=== PATIENT | male | born 1965 | race Caucasian/White ===

== ENCOUNTER 2021-11-03 14:22 | Inpatient (IN) ==
--- NOTE | 2021-11-03 18:39 | Emergency Department Note ---
Impression & Plan Acute hypoxemic respiratory failure due to COVID-19, Nausea vomiting and diarrhea, 2019 novel coronavirus-infected pneumonia (NCIP) ED Provider Note NAME: CHAS COLLINS AGE: 56 SEX: M : 1965 ARRIVES VIA: Walk-In INFORMANT: Patient, ED PROVIDER(S): Raleigh Slaughter MD Chief Complaint: Weakness, fatigue, shortness of breath, cough HPI: Patient does present with the above complaints and states he has had these for approximate 11 days. They have gotten progressively worse and the patient is had decreased p.o. intake. The patient does not complain of any nausea or vomiting. The patient has had a nonproductive cough. Patient is a non-smoker. The patient was reportedly hypoxic in triage per patient was placed on supplemental O2 the patient has no history of MIRIAM. The patient denies any lower extremity swelling. Patient has no abdominal pain or chest pain. Patient does have a known history of factor V Leiden and DVT for which patient does take Coumadin. Patient cannot remember the last time he took it. He did not take it today. Patient denies any orthopnea but does have dyspnea on exertion. No prior history of PE. Patient did have a positive test on 1129. 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 ROS: See HPI for pertinent positives and negatives. A total of 10 systems were reviewed and otherwise negative. Past medical history: See below Surgical history: See below Social history: See below Physical Exam: GENERAL: Fatigued in appearance,NAD, wearing a mask, non-toxic. EYE EXAM: Normal conjunctiva. PERRL, no anisocoria and EOM's grossly intact w/o pain. OROPHARYNX: Moist mucus membranes. Grossly normal dentition. NECK: Supple, no nuchal rigidity, no adenopathy, non-tender. No signs of meningismus. FROM of the neck with good chin to chest and neck extension. No stridor. LUNGS: Bibasilar crackles noted. Normal chest wall mechanics. HEART: NSR, no MRG. ABDOMEN: Abdomen soft, non-tender, normo-active bowel sounds, no masses, no rebound or guarding. BACK: No CVA TTP. SKIN: No rashes and no bruising. UPPER EXTREMITIES: Upper extremities are grossly normal. LOWER EXTREMITIES: Grossly normal, no edema. Negative Homans' sign bilaterally. NEURO EXAM: A&O x3, cranial nerves II-XII grossly intact, normal speech, moves all 4 extremities on command w/o issue. Differential diagnoses: Reactive airway disease, pneumonia, pneumothorax, COPD, CHF, infections, cardiac ischemia, pulmonary embolism, musculoskeletal, gastrointestinal, as well as other pathologies. Course: Patient was seen and evaluated the bedside. Full history physical exam was performed. Imaging Studies: See Below Cardiac monitoring: An order was placed for continuous cardiac monitoring. The monitor shows a rate of 92 with sinus rhythm. MDM: Patient was seen due to concern for COVID-19 illness with hypoxia. Patient did have blood work completed along with a chest x-ray. Patient is normal white count H&H and platelet count. INR is therapeutic at 2.6. Patient does have hyponatremia 127 potassium 3.1. Dressings were for replacement patient did receive IV fluids. Patient also received dexamethasone given his hypoxemia secondary to COVID-19. Chest x-ray shows progress multifocal viral pneumonia. I did speak the on-call hospitalist and the patient was admitted to the medicine service by Dr. Armenta. Critical Care: I have personally spent 42 minutes of critical care time in direct management of this patient. This includes bedside care, interpretation of diagnostic studies, and testing, discussion with consultants, patient, and family members, and other require inpatient management activities. This 42 minutes is in excess of all separately billable procedures. Past Med/Surg History Medical History Dyslipidemia Factor V Leiden carrier Warfarin History of DVT (deep vein thrombosis) Surgical History No history of previous surgery Social History Smoking Status: Never smoker marital status: Current Living Situation: Family current occupational status: employed Feels Safe at Home: Yes Allergies Allergies Allergy/AdvReac Type Severity Reaction Status Date / Time Sulfa (Sulfonamide Allergy Intermediate "tongue Verified 11/03/21 19:25 Antibiotics) turned black" Home Meds Home Medications Medication Instructions Recorded Confirmed atorvastatin 20 mg tablet 20 mg PO DAILY 11/02/21 11/03/21 warfarin 1 mg tablet 2 mg PO 5XWK 11/02/21 11/03/21 warfarin 10 mg tablet 10 mg PO DAILY 11/02/21 11/03/21 Previous Rx's Medication Instructions Recorded ondansetron 4 mg disintegrating 4 mg PO Q6H PRN #20 tab 11/02/21 tablet Results & Data (ED) Vital Signs Vital Signs - 24 hr 11/03/21 14:27 11/03/21 18:56 11/03/21 19:00 Temperature 36.7 C Temperature Source Temporal Artery Scan Pulse Rate 106 H 102 H 104 H Pulse Rate [Left Finger] 88 Pulse Rate from SpO2 Sensor 102 H 104 H Pulse Rhythm Regular Pulse Rhythm [Left Finger] Regular Respiratory Rate 20 23 25 H Respiratory Effort / Characteristics Non-Labored Spontaneous Non-Labored Respiratory Depth Normal Normal Respiratory Pattern Regular Blood Pressure 123/69 144/77 H Blood Pressure [Left Arm] 144/77 H Blood Pressure Mean 87 99 Blood Pressure Mean [Left Arm] 99 Blood Pressure Position [Left Arm] Sitting Pulse Oximetry 90 85 L 97 Oxygen Delivery Method Room Air Room Air Sepsis Recent Fever Within 48 Hours No Sepsis New/Unexplained Change in Mental Status No Sepsis Action Taken by Nursing No Action Required Oxygen Flow Rate - Titration 4 Pulse Oximetry Post Tiitration 95 11/03/21 19:10 11/03/21 19:20 11/03/21 19:34 Temperature Temperature Source Pulse Rate 106 H 99 H 106 H Pulse Rate [Left Finger] Pulse Rate from SpO2 Sensor 98 H Pulse Rhythm Pulse Rhythm [Left Finger] Respiratory Rate 26 H 24 21 Respiratory Effort / Characteristics Respiratory Depth Respiratory Pattern Blood Pressure Blood Pressure [Left Arm] Blood Pressure Mean Blood Pressure Mean [Left Arm] Blood Pressure Position [Left Arm] Pulse Oximetry 99 Oxygen Delivery Method Sepsis Recent Fever Within 48 Hours Sepsis New/Unexplained Change in Mental Status Sepsis Action Taken by Nursing Oxygen Flow Rate - Titration Pulse Oximetry Post Tiitration 11/03/21 19:40 11/03/21 19:50 11/03/21 20:00 Temperature Temperature Source Pulse Rate 98 H 100 H 105 H Pulse Rate [Left Finger] Pulse Rate from SpO2 Sensor 100 H 106 H Pulse Rhythm Pulse Rhythm [Left Finger] Respiratory Rate 24 25 H 24 Respiratory Effort / Characteristics Respiratory Depth Respiratory Pattern Blood Pressure Blood Pressure [Left Arm] Blood Pressure Mean Blood Pressure Mean [Left Arm] Blood Pressure Position [Left Arm] Pulse Oximetry 95 96 Oxygen Delivery Method Sepsis Recent Fever Within 48 Hours Sepsis New/Unexplained Change in Mental Status Sepsis Action Taken by Nursing Oxygen Flow Rate - Titration Pulse Oximetry Post Tiitration 11/03/21 20:10 11/03/21 20:20 11/03/21 20:30 Temperature Temperature Source Pulse Rate 94 H 102 H 90 Pulse Rate [Left Finger] Pulse Rate from SpO2 Sensor 96 H 103 H 90 Pulse Rhythm Pulse Rhythm [Left Finger] Respiratory Rate 31 H 25 H 27 H Respiratory Effort / Characteristics Respiratory Depth Respiratory Pattern Blood Pressure 140/70 Blood Pressure [Left Arm] Blood Pressure Mean 93 Blood Pressure Mean [Left Arm] Blood Pressure Position [Left Arm] Pulse Oximetry 96 95 98 Oxygen Delivery Method Sepsis Recent Fever Within 48 Hours Sepsis New/Unexplained Change in Mental Status Sepsis Action Taken by Nursing Oxygen Flow Rate - Titration Pulse Oximetry Post Tiitration Home Medications Current Medication List: was personally reviewed by me Laboratory Data Attestation: I reviewed the patient's lab results. Result diagrams: 11/03/21 19:06 11/03/21 19:06 Lab Results 11/03/21 11/03/21 11/03/21 Range/Units 19:06 19:06 19:06 WBC 7.66 (4.8-10.8) K/uL RBC 4.85 (4.7-6.1) M/uL Hgb 14.6 (14.0-18.0) g/dL Hct 42.7 (42-52) % MCV 88.0 (80-100) fL MCH 30.1 (25-34) pg MCHC 34.2 (32-36) g/dL RDW Std Deviation 45.7 (36.4-46.3) fL RDW Coeff of Robby 14.0 (11.5-14.5) % Plt Count 167 (130-400) K/uL MPV 9.7 (7.4-10.4) fL Immature Gran % (Auto) 0.4 % Neut % (Auto) 78.8 % Lymph % (Auto) 13.1 % [place] % (Auto) 7.6 % Eos % (Auto) 0.0 % Baso % (Auto) 0.1 % Neut # (Auto) 6.04 (1.4-6.5) K/uL Lymph # (Auto) 1.00 L (1.2-3.4) K/uL [place] # (Auto) 0.58 (0.11-0.59) K/uL Eos # (Auto) 0.00 (0-0.5) K/uL Baso # (Auto) 0.01 (0-0.2) K/uL Immature Gran # (Auto) 0.03 H (0.00-0.02) K/uL PT 24.5 H (9.0-12.0) Seconds INR 2.6 H (0.9-1.1) APTT 56.9 H* (21.0-31.0) Seconds PTT Ratio 2.2 Sodium 127 L (136-145) mmol/L Potassium 3.1 L (3.5-5.1) mmol/L Chloride 92 L (98-107) mmol/L Carbon Dioxide 28 (21-32) mmol/L Anion Gap 7.0 (3-11) BUN 9 (7-18) mg/dl Creatinine 0.71 (0.6-1.4) mg/dl Est Cr Clr Drug Dosing Not Reportable Est GFR ( Amer) 119.9 ml/min Est GFR (Non-Af Amer) 103.4 ml/min BUN/Creatinine Ratio 13.3 (10-20) Glucose 120 H (70-99) mg/dl Calcium 8.5 (8.5-10.1) mg/dl Magnesium 2.1 (1.8-2.4) mg/dl Total Bilirubin 0.6 (0.2-1) mg/dl AST 47 H (15-37) U/L ALT 54 (12-78) Alkaline Phosphatase 68 (45-117) U/L Troponin I < 0.015 (0-0.045) ng/ml Total Protein 7.4 (6.4-8.2) gm/dl Albumin 3.0 L (3.4-5.0) gm/dl Globulin 4.4 H (2.5-4.0) gm/dl Albumin/Globulin Ratio 0.7 L (0.9-2) TSH 0.427 (0.300-4.500) uIu/ml Administered Medications Discontinued Medications Dexamethasone Sodium Phosphate (DexamethasonePf 10 Mg/Ml Vial) 6 mg IV NOW ONE Stop: 11/03/21 18:50 Last Admin: 11/03/21 19:46 Dose: 6 mg Documented by: [id number] Sodium Chloride (Nss 1000ml) 1,000 mls @ 999 mls/hr IV .Q1H1M ONE Stop: 11/03/21 19:49 Last Admin: 11/03/21 19:48 Dose: 999 mls/hr Documented by: [id number] Potassium Chloride (Potassium Chloride Crtab 20 Meq Tabcr) 40 meq PO NOW STA Stop: 11/03/21 19:54 Last Admin: 11/03/21 20:16 Dose: 40 meq Documented by: [id number] Imaging Data Radiologist's Impression: Chest X-Ray 11/03/21 19:53 XR chest 1V portable HISTORY: 56 years-old Male covid, cough acute cough. COVID Positive. COMPARISON: Acute abdominal series radiographs 11/02/2021 TECHNIQUE: Portable AP view of the chest FINDINGS: Cardiac silhouette is mildly enlarged. No pneumothorax or large pleural effusion . Interstitial coarsening with patchy multifocal bilateral airspace opacities, mildly progressed. Degenerative changes of the shoulders and spine. IMPRESSION: Mildly progressed multifocal bilateral airspace opacities compatible with viral pneumonia. ACT 112: Negative or not required by law. The above report was generated using voice recognition software. It may contain grammatical, syntax or spelling errors. Electronically signed by: Harjeet Styles M.D. 11/03/2021 8:05 PM Discharge Plan Visit Data Chief Complaint: Respiratory Problems Stated Complaint: COV POS 10/29/21/DIARRHEA/CAN'T EAT/WEAK/LOW O2 ED Provider: Raleigh Slaughter Discharge Problem: Acute hypoxemic respiratory failure due to COVID-19, Nausea vomiting and diarrhea, 2019 novel coronavirus-infected pneumonia (NCIP) Forms Stand Alone Forms: [facility] [employer] Prescriptions Prescriptions: No Action atorvastatin 20 mg tablet 20 mg PO DAILY RF: 0 warfarin 10 mg tablet 10 mg PO DAILY RF: 0 warfarin 1 mg tablet 2 mg PO 5XWK RF: 0 ondansetron 4 mg tablet,disintegrating 4 mg PO Q6H PRN (Reason: nausea and vomiting) Qty: 20 RF: 0 Referrals Referrals: PCP,NO [Primary Care Provider] -
[2021-11-03] MEDS ORDERED: SODIUM CHLORIDE 0.9% 1000ML 1,000 ML IV ONE (18:49)
[2021-11-03] MEDS ORDERED: dexAMETHasone**PF** 10 MG/ML VIAL IV ONE (18:49)
[2021-11-03 19:20] LABS: Basophils # (auto) 0.01 K/uL (0-0.2); Basophils % (auto) 0.1 %; Hematocrit (blood only) 42.7 % (42-52); Hemoglobin 14.6 g/dL (14.0-18.0); Immature Granulocytes # (auto) 0.03 K/uL (0.00-0.02); Immature Granulocytes % (auto) 0.4 %; Lymphocytes % (auto) 13.1 %; Mean Corpuscular Hemoglobin 30.1 pg (25-34); Mean Corpuscular Hgb Conc 34.2 g/dL (32-36); Mean Platelet Volume 9.7 fL (7.4-10.4); Monocytes # (auto) 0.58 K/uL (0.11-0.59); Monocytes % (auto) 7.6 %; Neutrophils # (auto) 6.04 K/uL (1.4-6.5); Neutrophils % (auto) 78.8 %; Platelet Count 167 K/uL (130-400); RDW Standard Deviation 45.7 fL (36.4-46.3); Red Blood Count 4.85 M/uL (4.7-6.1); White Blood Count 7.66 K/uL (4.8-10.8)
[2021-11-03 19:51] LABS: Alanine Aminotransferase 54 (12-78); Aspartate Aminotransferase 47 U/L (15-37); BUN Creatinine Ratio 13.3 (10-20); Blood Urea Nitrogen 9 mg/dl (7-18); Calcium 8.5 mg/dl (8.5-10.1); Carbon Dioxide 28 mmol/L (21-32); Chloride 92 mmol/L (98-107); Est GFR (African American) 119.9 ml/min; Est GFR (Non-African American) 103.4 ml/min; Glucose 120 mg/dl (70-99); Magnesium 2.1 mg/dl (1.8-2.4); Potassium 3.1 mmol/L (3.5-5.1); Sodium 127 mmol/L (136-145)
[2021-11-03] MEDS ORDERED: POTASSIUM CHLORIDE CRTAB 20 MEQ TABCR PO STA (19:53)
[2021-11-03 19:55] LABS: INR 2.6 (0.9-1.1); Partial Thromboplastin Ratio 2.2; Prothrombin Time 24.5 Seconds (9.0-12.0)
[2021-11-03 19:56] LABS: Albumin Globulin Ratio 0.7 (0.9-2); Alkaline Phosphatase 68 U/L (45-117); Bilirubin,Total 0.6 mg/dl (0.2-1); Globulin 4.4 gm/dl (2.5-4.0); Total Protein 7.4 gm/dl (6.4-8.2); Troponin I < 0.015 ng/ml (0-0.045)
--- NOTE | 2021-11-03 20:06 | XRay Report ---
XR chest 1V portable HISTORY: 56 years-old Male covid, cough acute cough. COVID Positive. COMPARISON: Acute abdominal series radiographs 11/02/2021 TECHNIQUE: Portable AP view of the chest FINDINGS: Cardiac silhouette is mildly enlarged. No pneumothorax or large pleural effusion. Interstitial coarse keila with patchy multifocal bilateral airspace opacities, mildly progressed. Degenerative changes of the shoulders and spine. IMPRESSION: Mildly progressed multifocal bilateral airspace opacities compatible with viral pneumonia . ACT 112: Negative or not required by law. The above report was generated using voice recognition software. It may contain grammatical, syntax o r spelling errors. Electronically signed by: Harjeet Styles M.D. 11/03/2021 8:05 PM
[2021-11-03 20:32] LABS: Partial Thromboplastin Time 56.9 Seconds (21.0-31.0)
[2021-11-03 20:47] LABS: Thyroid Stimulating Hormone 0.427 uIu/ml (0.300-4.500)
[2021-11-03] MEDS ORDERED: XOPENEX/ATROVENT 1.25mg/0.5MG NEB COMBO NEB STA (20:50)
--- NOTE | 2021-11-03 20:50 | History & Physical Report ---
Date of Service November 03, 2021 Assessment & Plan (1) Acute hypoxemic respiratory failure due to COVID-19: Plan: Secondary to severe COVID-19 pneumonia Hyponatremia hypokalemia secondary to diarrheal illness hypercoagulable state (factor V Leiden mutation, recurrent blood clots) on Coumadin, INR therapeutic hyperlipidemia on statin Rx Hyperglycemia rule out DM Medical telemetry Supplemental O2 Decadron and Remdesivir for severe COVID-19 pneumonia. (Patient was counseled regarding potential adverse effects from Remdesivir therapy and provided with patient education sheet. Patient agreeable to initial dose for now.) Pulmonary consult if without improvement. Careful correction of sodium, hyponatremia work-up, replace potassium Check hemoglobin A1c DVT prophylaxis per Lovenox subcu Full code Text document was generated using [employer] voice recognition software. It may contain grammatical or spelling errors. Kindly contact undersigned for clarification of any documentation item in question. History of Present Illness Chief Complaint: Worsening shortness of breath and weakness, COVID-19 Primary Care Provider: Dr. Vuong History obtained from patient and records. Medical history significant for hypercoagulable state (factor V Leiden mutation, recurrent blood clots) on Coumadin, hyperlipidemia. Patient has not been well the last 11 days. Nausea vomiting watery diarrhea symptoms without abdominal pain. Poor appetite. Nonproductive cough. No chest pain, no S OB. Transient headache symptoms. Patient has not received COVID-19 vaccination. Possible sick contacts at work. Outpatient COVID-19 test from last week was positive. Other family members tested positive as well. Patient seen at the ER yesterday. Abdominal x-ray did not show bowel obstruction. Chest x-ray showed viral pneumonia. Patient sent home. Worsening weakness, shortness of breath on exertion at home without chest pain. Patient returned to the ER. O2 sats 80s on room air at some point during ER stay. IV Decadron given at the ER. 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 Allergies Allergy/AdvReac Type Severity Reaction Status Date / Time Sulfa (Sulfonamide Allergy Intermediate "tongue Verified 11/03/21 19:25 Antibiotics) turned black" Home Medications Medication Instructions Recorded Confirmed Type atorvastatin 20 mg tablet 20 mg PO DAILY 11/02/21 11/03/21 History ondansetron 4 mg disintegrating 4 mg PO Q6H PRN #20 tab 11/02/21 11/03/21 Rx tablet warfarin 1 mg tablet 2 mg PO 5XWK 11/02/21 11/03/21 History warfarin 10 mg tablet 10 mg PO DAILY 11/02/21 11/03/21 History Past Med/Surg History Medical History Dyslipidemia Factor V Leiden carrier Warfarin History of DVT (deep vein thrombosis) Surgical History No history of previous surgery Social History Smoking Status: Never smoker Hx Alcohol Use: No Hx Substance Use: No Preferred Language: Citizen Of [place] Communication Ability: Effective 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 Beliefs That Will Affect Care: Rastafarian Rastafarian Beliefs: no blood products marital status: Current Living Situation: Family current occupational status: employed Other Information That Helps Us Care for You: No Feels Safe at Home: Yes Safety Concerns: Feels Safe At This Time Assistive Devices: None Review of Systems Review of Systems: As per HPI, all 10 systems reviewed, all other ROS negative Physical Exam Physical Exam: GENERAL: uncomfortable, slightly anxious, obese, no respiratory distress SKIN: Normal color, warm HEENT: [place] palpebral conjunctivae, no ptosis, dry buccal mucosa, nasal cannula in place NECK : Supple, no tenderness CHEST : Decreased breath sounds, expiratory wheezes, no tenderness HEART : Tachycardic, no obvious murmurs ABDOMEN: Some distention, nontender EXTREMITIES : No LE swelling/tenderness, no other conspicuous deformities noted NEUROLOGIC : Coherent, no facial asymmetry, no other gross focality Results & Data Results & Data ([facility]) Vital Signs (Past 12 Hours) Vital Signs Temp Pulse Pulse Resp BP BP Pulse Ox 11/03/21 20:30 90 27 H 140/70 98 11/03/21 20:20 102 H 25 H 95 11/03/21 20:10 94 H 31 H 96 11/03/21 20:00 105 H 24 96 11/03/21 19:50 100 H 25 H 95 11/03/21 19:40 98 H 24 11/03/21 19:34 106 H 21 11/03/21 19:20 99 H 24 99 11/03/21 19:10 106 H 26 H 11/03/21 19:00 104 H 88 25 H 144/77 H 97 11/03/21 18:56 102 H 23 144/77 H 85 L 11/03/21 14:27 36.7 C 106 H 20 123/69 90 Laboratory Results Laboratory Results WBC 7.66 K/uL (4.8-10.8) 11/03/21 19:06 RBC 4.85 M/uL (4.7-6.1) 11/03/21 19:06 Hgb 14.6 g/dL (14.0-18.0) 11/03/21 19:06 Hct 42.7 % (42-52) 11/03/21 19:06 MCV 88.0 fL (80-100) 11/03/21 19:06 MCH 30.1 pg (25-34) 11/03/21 19:06 MCHC 34.2 g/dL (32-36) 11/03/21 19:06 RDW Std Deviation 45.7 fL (36.4-46.3) 11/03/21 19:06 RDW Coeff of Robby 14.0 % (11.5-14.5) 11/03/21 19:06 Plt Count 167 K/uL (130-400) 11/03/21 19:06 MPV 9.7 fL (7.4-10.4) 11/03/21 19:06 Immature Gran % (Auto) 0.4 % 11/03/21 19:06 Neut % (Auto) 78.8 % 11/03/21 19:06 Lymph % (Auto) 13.1 % 11/03/21 19:06 [place] % (Auto) 7.6 % 11/03/21 19:06 Eos % (Auto) 0.0 % 11/03/21 19:06 Baso % (Auto) 0.1 % 11/03/21 19:06 Neut # (Auto) 6.04 K/uL (1.4-6.5) 11/03/21 19:06 Lymph # (Auto) 1.00 K/uL (1.2-3.4) L 11/03/21 19:06 [place] # (Auto) 0.58 K/uL (0.11-0.59) 11/03/21 19:06 Eos # (Auto) 0.00 K/uL (0-0.5) 11/03/21 19:06 Baso # (Auto) 0.01 K/uL (0-0.2) 11/03/21 19:06 Immature Gran # (Auto) 0.03 K/uL (0.00-0.02) H 11/03/21 19:06 PT 24.5 Seconds (9.0-12.0) H 11/03/21 19:06 INR 2.6 (0.9-1.1) H 11/03/21 19:06 APTT 56.9 Seconds (21.0-31.0) H* 11/03/21 19:06 PTT Ratio 2.2 11/03/21 19:06 Sodium 127 mmol/L (136-145) L 11/03/21 19:06 Potassium 3.1 mmol/L (3.5-5.1) L 11/03/21 19:06 Chloride 92 mmol/L (98-107) L 11/03/21 19:06 Carbon Dioxide 28 mmol/L (21-32) 11/03/21 19:06 Anion Gap 7.0 (3-11) 11/03/21 19:06 BUN 9 mg/dl (7-18) 11/03/21 19:06 Creatinine 0.71 mg/dl (0.6-1.4) 11/03/21 19:06 Est Cr Clr Drug Dosing Not Reportable 11/03/21 19:06 Est GFR ( Amer) 119.9 ml/min 11/03/21 19:06 Est GFR (Non-Af Amer) 103.4 ml/min 11/03/21 19:06 BUN/Creatinine Ratio 13.3 (10-20) 11/03/21 19:06 Glucose 120 mg/dl (70-99) H 11/03/21 19:06 Calcium 8.5 mg/dl (8.5-10.1) 11/03/21 19:06 Magnesium 2.1 mg/dl (1.8-2.4) 11/03/21 19:06 Total Bilirubin 0.6 mg/dl (0.2-1) 11/03/21 19:06 AST 47 U/L (15-37) H 11/03/21 19:06 ALT 54 (12-78) 11/03/21 19:06 Alkaline Phosphatase 68 U/L (45-117) 11/03/21 19:06 Troponin I < 0.015 ng/ml (0-0.045) 11/03/21 19:06 Total Protein 7.4 gm/dl (6.4-8.2) 11/03/21 19:06 Albumin 3.0 gm/dl (3.4-5.0) L 11/03/21 19:06 Globulin 4.4 gm/dl (2.5-4.0) H 11/03/21 19:06 Albumin/Globulin Ratio 0.7 (0.9-2) L 11/03/21 19:06 TSH 0.427 uIu/ml (0.300-4.500) 11/03/21 19:06 Impressions Chest X-Ray 11/03/21 19:53 XR chest 1V portable HISTORY: 56 years-old Male covid, cough acute cough. COVID Positive. COMPARISON: Acute abdominal series radiographs 11/02/2021 TECHNIQUE: Portable AP view of the chest FINDINGS: Cardiac silhouette is mildly enlarged. No pneumothorax or large pleural effusion. Interstitial coarsening with patchy multifocal bilateral airspace opacities, mildly progressed. Degenerative changes of the shoulders and spine. IMPRESSION: Mildly progressed multifocal bilateral airspace opacities compatible with viral pneumonia. ACT 112: Negative or not required by law. The above report was generated using voice recognition software. It may contain grammatical, syntax or spelling errors. Electronically signed by: Harjeet Styles M.D. 11/03/2021 8:05 PM
[2021-11-03 20:57] LABS: Influenza A virus by PCR Negative (Neg); Influenza B virus by PCR Negative (Neg); RSV by PCR Negative (Neg)
[2021-11-03] MEDS ORDERED: LEVALBUTEROL 1.25MG/0.5ML NEB INH STA (21:03)
[2021-11-03] MEDS ORDERED: IPRATROPIUM BROMIDE NEB SOLN 0.02% 2.5 ML VIAL INH STA (21:03)
[2021-11-03] MEDS ORDERED: WARFARIN SOD 5 MG TAB PO ONE (21:04)
[2021-11-03 21:07] LABS: SARS CoV2 RNA(COVID-19) InHosp POSITIVE (Negative)
[2021-11-03] MEDS ORDERED: REMDESIVIR 200 MG in SODIUM CHLORIDE 0.9% 210 ML IV ONE (21:15)
[2021-11-04] MEDS ORDERED: PROMETHAZINE HCL 12.5 MG in SODIUM CHLORIDE 0.9% 50 ML IV PRN (00:01)
[2021-11-04] MEDS ORDERED: IPRATROPIUM BROMIDE NEB SOLN 0.02% 2.5 ML VIAL INH PRN (00:01)
[2021-11-04] MEDS ORDERED: LEVALBUTEROL 1.25MG/0.5ML NEB INH PRN (00:01)
[2021-11-04] MEDS ORDERED: XOPENEX/ATROVENT 1.25mg/0.5MG NEB COMBO NEB PRN (00:01)
[2021-11-04] MEDS ORDERED: LORazepam 0.25 MG/0.5 ML VIAL IV PRN (00:01)
[2021-11-04] MEDS: SODIUM CHLORIDE 0.9% 10ML FLUSH IV SCH ×2 (00:37→22:27)
[2021-11-04] MEDS ORDERED: POTASSIUM CHLORIDE 40 MEQ in SODIUM CHLORIDE 0.45 % 1,000 ML IV ONE (03:00)
[2021-11-04 05:45] LABS: Basophils # (auto) 0.01 K/uL (0-0.2); Basophils % (auto) 0.2 %; Hematocrit (blood only) 40.1 % (42-52); Hemoglobin 13.7 g/dL (14.0-18.0); Immature Granulocytes # (auto) 0.01 K/uL (0.00-0.02); Immature Granulocytes % (auto) 0.2 %; Lymphocytes # (auto) 0.73 K/uL (1.2-3.4); Lymphocytes % (auto) 11.6 %; Mean Corpuscular Hemoglobin 30.2 pg (25-34); Mean Corpuscular Hgb Conc 34.2 g/dL (32-36); Mean Corpuscular Volume 88.5 fL (80-100); Mean Platelet Volume 9.8 fL (7.4-10.4); Monocytes # (auto) 0.36 K/uL (0.11-0.59); Monocytes % (auto) 5.7 %; Neutrophils # (auto) 5.17 K/uL (1.4-6.5); Neutrophils % (auto) 82.3 %; Platelet Count 185 K/uL (130-400); RDW Coefficient of Variation 14.2 % (11.5-14.5); RDW Standard Deviation 46.7 fL (36.4-46.3); Red Blood Count 4.53 M/uL (4.7-6.1); White Blood Count 6.28 K/uL (4.8-10.8)
[2021-11-04 05:56] LABS: INR 2.6 (0.9-1.1); Prothrombin Time 24.2 Seconds (9.0-12.0)
[2021-11-04 06:16] LABS: Albumin Level 2.7 gm/dl (3.4-5.0); BUN Creatinine Ratio 15.7 (10-20); Calcium 8.5 mg/dl (8.5-10.1); Est GFR (African American) 130.3 ml/min; Est GFR (Non-African American) 112.4 ml/min
[2021-11-04 06:18] LABS: Albumin Globulin Ratio 0.7 (0.9-2); Bilirubin,Total 0.3 mg/dl (0.2-1); Globulin 3.9 gm/dl (2.5-4.0); Total Protein 6.6 gm/dl (6.4-8.2)
[2021-11-04] MEDS: ACETAMINOPHEN 325 MG TAB PO PRN (09:14)
[2021-11-04] MEDS: ATORVASTATIN 20 MG TAB PO SCH (09:14)
[2021-11-04] MEDS: dexAMETHasone 6 MG in SYRINGE 0 ML IV SCH (09:17)
[2021-11-04 09:22] LABS: Estimated Average Glucose 126 mg/dl
[2021-11-04 10:17] LABS: Appearance Urine Clear (Clear); Bacteria Urine Automated Negative (Negative); Bilirubin Urine Negative (Negative); Blood Urine Trace (Negative); Cast Urine Automated 0 /lpf (0-5); Color Urine Yellow; Glucose Urine UA Negative (Negative); Ketones Urine Trace (Negative); Leukocyte Esterase Urine Negative (Negative); Nitrite Urine Negative (Negative); Protein Urine 1+ (Negative); RBC Urine Automated 0-4 /hpf (0-4); Urobilinogen Urine Negative (Negative); pH Urine 6.5 (4.5-7.5)
[2021-11-04 11:23] LABS: Potassium 3.6 mmol/L (3.5-5.1)
--- NOTE | 2021-11-04 15:45 | Hospitalist Progress Note ---
Date of Service November 04, 2021 Assessment & Plan (1) Nausea vomiting and diarrhea: Plan: Present on admission with multiple episodes of diarrhea for more than 1 week Testing positive to COVID 19 on 10/27/21 Continue IV hydration Will advance diet Continue monitor electrolytes (2) COVID-19: Plan: CXR mildly progressed multifocal bilateral airspace opacities compatible with viral pneumonia. Denies any symptoms of SOB Received IV Dexamethasone and Remdesivir on admission Will continue Dexamethasone Discussed with pt about about Remdesivir therapy since his symptoms have been going for 11 days and he was testing positive on 10/27/21 Major side effect discussed with patient such as hepatotoxicity Pt would like to hold on additional dose for the remdesivir Will monitor inflammatory markers such as ESR , CRP, Ferritin Continue oxygen supplement Hx DVT Factor V Leiden Continue coumadin Continue monitor PT/INR Dyslipidemia Continue Atorvastatin DVT px on Coumadin Code status Full code Admission and Anticipated Discharge Date Admission Date: November 03, 2021 Subjective Pt was seen and examined for follow of covid 19 and diarrhea Lying in bed with no acute distress Pt said that he had 2 episodes of diarrhea, not as watery He said that he is very hungry He said that he is not having any breathing problems Denies any chest pain, palpitation, dizziness, shortness of breath, fever Review of Systems Review of Systems: All systems reviewed & are unremarkable except as noted in Subjective Physical Exam Physical Exam: General- No acute distress Head- atraumatic Eyes- PERRL, EOMI, ENT- oropharynx clear Neck- supple, no JVD Lungs- clear to auscultation Heart- regular rhythm; no murmur Abdomen- normal bowel sounds, soft, nontender Extremities- no calf tenderness Neuro- alert, oriented x 3; PERRL, EOMI; no facial palsy; no dysarthria Skin- warm & dry Results & Data Results & Data ([facility]) Vital Signs (Past 12 Hours) Vital Signs Temp Pulse Resp BP BP Pulse Ox 11/04/21 15:25 36.7 C 90 22 113/60 93 11/04/21 08:46 36.8 C 96 H 18 123/71 92 11/04/21 03:49 36.8 C 83 24 124/66 91
[2021-11-04] MEDS ORDERED: methylPREDNISolone 40 MG in SYRINGE 0 ML IV STA (23:10)
[2021-11-04] MEDS ORDERED: XOPENEX/ATROVENT 1.25mg/0.5MG NEB COMBO NEB STA (23:10)
[2021-11-04] MEDS ORDERED: WARFARIN SOD 5 MG TAB PO ONE (23:12)
[2021-11-04] MEDS ORDERED: IPRATROPIUM BROMIDE NEB SOLN 0.02% 2.5 ML VIAL INH STA (23:27)
[2021-11-04] MEDS ORDERED: LEVALBUTEROL 1.25MG/0.5ML NEB INH STA (23:27)
[2021-11-05] MEDS: MELATONIN 3 MG TAB PO PRN (00:32)
[2021-11-05 00:38] LABS: Base Excess ABG 1.2 mEq/L (-9-1.8); HCO3 ABG 24 mmol/L (19-24); Oxygen Saturation ABG 90.3 % (90-95); PCO2 ABG 33 mmHg (35-46); PO2 ABG 55 mmHg (80-95); pH ABG 7.48 (7.35-7.45)
[2021-11-05 00:59] LABS: Allen Test Pos (Pos)
[2021-11-05 08:01] LABS: INR 2.5 (0.9-1.1); Prothrombin Time 23.9 Seconds (9.0-12.0)
--- NOTE | 2021-11-05 08:07 | XRay Report ---
XR chest 1V portable CLINICAL HISTORY: low o2 COMPARISON STUDY: Chest radiograph November 03, 2021. FINDINGS: Lung volumes are normal. There is no pneumothorax or pleural effusion. Bilateral airspace o pacities are noted. Right upper lung airspace opacity is slightly increased. Remainder of the airspac e opacities are less conspicuous. IMPRESSION: Multifocal bilateral airspace opacities suggestive of viral pneumonia. Overall, slightly decreased since prior exam.. ACT 112: Negative or not required by law. Electronically signed by: Jesus Roberts M.D. 11/05/2021 8:06 AM
[2021-11-05 08:25] LABS: Albumin Level 2.5 gm/dl (3.4-5.0); BUN Creatinine Ratio 25.6 (10-20); C Reactive Protein 13.3 mg/dl (0-0.29); Calcium 8.2 mg/dl (8.5-10.1); Creatinine Clr Calc Pharmacy 149.4 ml/min; Est GFR (African American) 129.3 ml/min; Est GFR (Non-African American) 111.6 ml/min; Potassium 3.8 mmol/L (3.5-5.1)
[2021-11-05 08:30] LABS: Albumin Globulin Ratio 0.6 (0.9-2); Bilirubin,Total 0.7 mg/dl (0.2-1); Ferritin 1306.6 ng/ml (8-388); Globulin 3.9 gm/dl (2.5-4.0); Total Protein 6.4 gm/dl (6.4-8.2)
[2021-11-05] MEDS: ATORVASTATIN 20 MG TAB PO SCH (10:06)
[2021-11-05] MEDS: dexAMETHasone 6 MG in SYRINGE 0 ML IV SCH (10:06)
--- NOTE | 2021-11-05 13:28 | XRay Report ---
XR chest 1V portable CLINICAL HISTORY: ff up covid pneumonia TECHNIQUE: Single frontal radiograph of the chest was obtained. Comparison: Comparison is made to chest one view 11/04/2020 FINDINGS: No lines and tubes are seen. The cardiomediastinal silhouette is normal. Scattered airspace opacities are essentially unchanged from prior No evidence of pleural effusion or pneumothorax. IMPRESSION: Stable multifocal airspace opacities. ACT 112: Negative or not required by law. Electronically signed by: Quincy Morton M.D. 11/05/2021 1:26 PM
[2021-11-05] MEDS ORDERED: FUROSEMIDE INJ 20 MG/2 ML VIAL IV ONE (16:57)
[2021-11-05] MEDS ORDERED: SODIUM CHLORIDE 0.9% 10ML FLUSH IV SCH (17:00)
--- NOTE | 2021-11-05 17:06 | Hospitalist Progress Note ---
Date of Service November 05, 2021 Assessment & Plan (1) COVID-19: Plan: per Dr. Pearl's notes with addendum including succeeding assessment and plan: Testing positive to COVID 19 on 10/27/21 CXR mildly progressed multifocal bilateral airspace opacities compatible with viral pneumonia. Denies any symptoms of SOB Received IV Dexamethasone and Remdesivir on admission Will continue Dexamethasone Discussed with pt about about Remdesivir therapy since his symptoms have been going for 11 days and he was testing positive on 10/27/21 Major side effect discussed with patient such as hepatotoxicity Pt would like to hold on additional dose for the remdesivir Will monitor inflammatory markers such as ESR , CRP, Ferritin Continue oxygen supplement 11/05 now on 13 L NC CXR about the same CRP improving trend Ferritin, ESR discussed with patient he is agreeable to resume Remdesivir now continue Decadron Lasix 20mg IV one dose Incentiive spirometry, Flutter valve, Proning, Mucinex monitor renal and liver function Diarrhea, Nausea/vomiting Present on admission with multiple episodes of diarrhea for more than 1 week resolved Hx DVT Factor V Leiden Continue coumadin Continue monitor PT/INR Dyslipidemia hold Atorvastatin DVT px on Coumadin Code status Full code plan of care discussed with patient in detail and at length all questions answered he is understanding, agreeable, comfortable with the plan of care (2) Nausea vomiting and diarrhea: Plan: per Dr. Pearl's notes with addendum including succeeding assessment and plan: Admission and Anticipated Discharge Date Admission Date: November 03, 2021 Subjective ff up for COVID pneumonia, hypoxia seen resting in bed, sitting up on 13 L nasal cannula not in distress states he feels better overall breathing about the same diarrhea has stopped no chest pain, palpitations, dizziness, nausea/vomiting no leg pain no other symptoms Review of Systems Review of Systems: all noted and negative except for above Physical Exam Physical Exam: General- oriented x 3, not in distress, speaks in sentences with no effort or accessory muscle use Head- atraumatic Eyes- PERRL, EOMI, anicteric ENT- oropharynx clear Neck- supple, no JVD, no adenopathy, no thyromegaly; carotids +2/2, no bruits appreciated Lungs- (+) mild rhonchi at the bases no wheezing good air entry BL Heart- normal rate, regular rhythm; no murmur, no gallop, no rub appreciated Abdomen- normal bowel sounds, nondistended, soft, nontender, no masses or hepatosplenomegaly Extremities- no pretibial edema, no calf tenderness; peripheral pulses intact Neuro- alert, oriented x 3; CN 2-12 grossly intact; motor 5/5 bilaterally;sensation 100% on all extremities; no other gross focal neurologic deficits Skin- warm & dry Results & Data Results & Data ([facility]) Vital Signs (Past 12 Hours) Vital Signs Temp Pulse Pulse Resp BP Pulse Ox 11/05/21 15:49 36.8 C 84 20 99/64 L 90 11/05/21 11:53 36.9 C 77 20 107/68 93 11/05/21 07:53 37.1 C 82 20 101/64 95 11/05/21 07:51 85 all noted and reviewed including below
[2021-11-05] MEDS: WARFARIN SOD 5 MG TAB PO SCH (17:10)
[2021-11-05] MEDS: guaiFENesin 600 MG TABCR PO SCH ×2 (20:45→22:38)
[2021-11-05] MEDS: REMDESIVIR 100 MG in SODIUM CHLORIDE 0.9% 230 ML IV SCH (20:45)
[2021-11-05] MEDS: SODIUM CHLORIDE 0.9% 10ML FLUSH IV SCH (22:37)
[2021-11-06 06:29] LABS: Basophils # (auto) 0.01 K/uL (0-0.2); Basophils % (auto) 0.1 %; Hematocrit (blood only) 42.7 % (42-52); Hemoglobin 14.3 g/dL (14.0-18.0); Immature Granulocytes # (auto) 0.02 K/uL (0.00-0.02); Immature Granulocytes % (auto) 0.2 %; Lymphocytes # (auto) 1.13 K/uL (1.2-3.4); Lymphocytes % (auto) 11.9 %; Mean Corpuscular Hemoglobin 30.2 pg (25-34); Mean Corpuscular Hgb Conc 33.5 g/dL (32-36); Mean Corpuscular Volume 90.1 fL (80-100); Mean Platelet Volume 9.2 fL (7.4-10.4); Monocytes # (auto) 0.36 K/uL (0.11-0.59); Monocytes % (auto) 3.8 %; Platelet Count 262 K/uL (130-400); RDW Standard Deviation 46.6 fL (36.4-46.3); Red Blood Count 4.74 M/uL (4.7-6.1); White Blood Count 9.52 K/uL (4.8-10.8)
[2021-11-06 06:37] LABS: INR 3.2 (0.9-1.1); Prothrombin Time 29.3 Seconds (9.0-12.0)
[2021-11-06 07:16] LABS: Albumin Level 2.7 gm/dl (3.4-5.0); BUN Creatinine Ratio 26.2 (10-20); Bilirubin Direct 0.2 mg/dl (0-0.2); Calcium 8.6 mg/dl (8.5-10.1); Creatinine Clr Calc Pharmacy 126.2 ml/min; Est GFR (African American) 121.3 ml/min; Est GFR (Non-African American) 104.6 ml/min; Potassium 3.7 mmol/L (3.5-5.1)
[2021-11-06 07:17] LABS: Bilirubin,Total 0.8 mg/dl (0.2-1); Total Protein 6.7 gm/dl (6.4-8.2)
[2021-11-06] MEDS: guaiFENesin 600 MG TABCR PO SCH ×2 (08:36→21:01)
[2021-11-06] MEDS: dexAMETHasone 6 MG in SYRINGE 0 ML IV SCH (08:40)
[2021-11-06 10:13] LABS: C Reactive Protein 8.34 mg/dl (0-0.29); Ferritin 1311.5 ng/ml (8-388)
--- NOTE | 2021-11-06 19:25 | Hospitalist Progress Note ---
Date of Service November 06, 2021 delayed entry date of service noted above Assessment & Plan (1) COVID-19: Plan: per Dr. Pearl's notes with addendum including succeeding assessment and plan: Testing positive to COVID 19 on 10/27/21 CXR mildly progressed multifocal bilateral airspace opacities compatible with viral pneumonia. Denies any symptoms of SOB Received IV Dexamethasone and Remdesivir on admission Will continue Dexamethasone Discussed with pt about about Remdesivir therapy since his symptoms have been going for 11 days and he was testing positive on 10/27/21 Major side effect discussed with patient such as hepatotoxicity Pt would like to hold on additional dose for the remdesivir Will monitor inflammatory markers such as ESR , CRP, Ferritin Continue oxygen supplement 11/06/21 clinically about the same continue Decadron, Remdesivir Incentiive spirometry, Flutter valve, Proning, Mucinex monitor renal and liver function Diarrhea, Nausea/vomiting Present on admission with multiple episodes of diarrhea for more than 1 week resolved Hx DVT Factor V Leiden INR 3.2 hold coumadin Continue monitor PT/INR Dyslipidemia hold Atorvastatin DVT px on Coumadin Code status Full code plan of care discussed with patient in detail and at length all questions answered he is understanding, agreeable, comfortable with the plan of care (2) Nausea vomiting and diarrhea: Plan: per Dr. Pearl's notes with addendum including succeeding assessment and plan: Admission and Anticipated Discharge Date Admission Date: November 03, 2021 Subjective ff up for COVID pneumonia, hypoxic respiratory failure, etc seen resting in bed, on 13 L NC not in distress states he feels slightly better no cough, chest pain no diarrhea appetite improving no other symptoms Review of Systems Review of Systems: all noted and negative except for above Physical Exam Physical Exam: General- oriented x 3, not in distress, speaks in sentences with no effort or accessory muscle use Eyes- anicteric Neck- no JVD Lungs- (+) mild rhonchi bilaterally no wheezing Heart- normal rate, regular rhythm; no murmurs Abdomen- normal bowel sounds, nondistended, soft, nontender Extremities- no pretibial edema, no calf tenderness Neuro- alert, oriented x 3; no gross focal neurologic deficits Skin- warm & dry Results & Data Results & Data ([facility]) Vital Signs (Past 12 Hours) Vital Signs Temp Pulse Pulse Resp BP Pulse Ox 11/06/21 15:09 36.8 C 78 20 114/69 95 11/06/21 08:14 37.3 C 62 20 98/60 L 94 11/06/21 08:00 78 all noted and reviewed including below
[2021-11-06] MEDS ORDERED: REMDESIVIR 100 MG in SODIUM CHLORIDE 0.9% 230 ML IV SCH (20:00)
[2021-11-06] MEDS: REMDESIVIR 100 MG in SODIUM CHLORIDE 0.9% 230 ML IV SCH (21:01)
[2021-11-06] MEDS: SODIUM CHLORIDE 0.9% 10ML FLUSH IV SCH (22:14)
--- NOTE | 2021-11-06 22:58 | Ultrasound Report ---
US venous doppler LE LT CLINICAL HISTORY: dvt?Pain in upper left leg. factor V deficiency COMPARISON: None available at the time of this dictation. TECHNIQUE: Left lower extremity real-time compression venous ultrasound with Color Doppler imaging. Utilizing real-time ultrasonic imaging multiple real time high-resolution ultrasonic images with comp ression and noncompression maneuvers of the deep venous system in addition to color doppler imaging w ere performed from the common femoral vein through the proximal calf veins. FINDINGS: There is nonocclusive thrombus present within the common femoral vein and the proximal to mid superfi cial femoral vein. The popliteal vein is patent. Is also superficial thrombus present within the mid to distal thigh. Impression: Positive for deep venous thrombosis and superficial thrombophlebitis. ACT 112: Negative or not required by law. Electronically signed by: El Rebolledo M.D. 11/06/2021 10:56 PM
[2021-11-07 07:14] LABS: Basophils # (auto) 0.01 K/uL (0-0.2); Basophils % (auto) 0.1 %; Hematocrit (blood only) 40.7 % (42-52); Hemoglobin 13.6 g/dL (14.0-18.0); Immature Granulocytes # (auto) 0.03 K/uL (0.00-0.02); Immature Granulocytes % (auto) 0.4 %; Lymphocytes # (auto) 1.28 K/uL (1.2-3.4); Lymphocytes % (auto) 16.6 %; Mean Corpuscular Hemoglobin 30.1 pg (25-34); Mean Corpuscular Hgb Conc 33.4 g/dL (32-36); Mean Platelet Volume 9.6 fL (7.4-10.4); Monocytes # (auto) 0.17 K/uL (0.11-0.59); Monocytes % (auto) 2.2 %; Neutrophils # (auto) 6.23 K/uL (1.4-6.5); Neutrophils % (auto) 80.7 %; Platelet Count 243 K/uL (130-400); RDW Coefficient of Variation 13.9 % (11.5-14.5); RDW Standard Deviation 46.4 fL (36.4-46.3); Red Blood Count 4.52 M/uL (4.7-6.1); White Blood Count 7.72 K/uL (4.8-10.8)
[2021-11-07 07:27] LABS: INR 3.4 (0.9-1.1)
[2021-11-07 07:44] LABS: Albumin Level 2.5 gm/dl (3.4-5.0); BUN Creatinine Ratio 28.8 (10-20); Bilirubin Direct 0.2 mg/dl (0-0.2); Calcium 8.3 mg/dl (8.5-10.1); Creatinine Clr Calc Pharmacy 137.4 ml/min; Est GFR (African American) 125.9 ml/min; Est GFR (Non-African American) 108.6 ml/min; Potassium 3.7 mmol/L (3.5-5.1)
[2021-11-07 07:46] LABS: Bilirubin,Total 0.8 mg/dl (0.2-1); Total Protein 6.1 gm/dl (6.4-8.2)
[2021-11-07] MEDS: guaiFENesin 600 MG TABCR PO SCH ×2 (08:41→20:04)
[2021-11-07] MEDS: dexAMETHasone 6 MG in SYRINGE 0 ML IV SCH (08:41)
[2021-11-07] MEDS ORDERED: FUROSEMIDE INJ 20 MG/2 ML VIAL IV ONE (11:33)
--- NOTE | 2021-11-07 18:18 | Hospitalist Progress Note ---
Date of Service November 07, 2021 Assessment & Plan (1) COVID-19: Plan: per Dr. Pearl's notes with addendum including succeeding assessment and plan: Testing positive to COVID 19 on 10/27/21 CXR mildly progressed multifocal bilateral airspace opacities compatible with viral pneumonia. Denies any symptoms of SOB Received IV Dexamethasone and Remdesivir on admission Will continue Dexamethasone Discussed with pt about about Remdesivir therapy since his symptoms have been going for 11 days and he was testing positive on 10/27/21 Major side effect discussed with patient such as hepatotoxicity Pt would like to hold on additional dose for the remdesivir Will monitor inflammatory markers such as ESR , CRP, Ferritin Continue oxygen supplement 11/07/21 on 15L NC given Lasix 20mg iV this morning continue Decadron, Remdesivir Incentive spirometry, Flutter valve, self Proning, Mucinex monitor renal and liver function Diarrhea, Nausea/vomiting Present on admission with multiple episodes of diarrhea for more than 1 week resolved Hx DVT Factor V Leiden INR 3.5 hold coumadin Continue monitor PT/INR Dyslipidemia hold Atorvastatin DVT px on Coumadin Code status Full code plan of care discussed with patient in detail and at length all questions answered he is understanding, agreeable, comfortable with the plan of care (2) Nausea vomiting and diarrhea: Plan: per Dr. Pearl's notes with addendum including succeeding assessment and plan: Admission and Anticipated Discharge Date Admission Date: November 03, 2021 Subjective ff up for Covid pneumonia, acute hypoxic respiratory failure, etc. Seen sitting up in bed, not in distress, smiling, on 15 L of nasal cannula States he feels about the same as yesterday Intermittent cough, no chest pain, nausea, abdominal pain Has mild discomfort on the left lower extremity which is chronic, reports mild edema of left lower extremity is baseline No other symptoms Review of Systems Review of Systems: all noted and negative except for above Physical Exam Physical Exam: General- oriented x 3, not in distress, speaks in sentences with no effort or accessory muscle use Eyes- anicteric Neck- no JVD Lungs- mild rhonchi BL no wheezing good air entry bilaterally Heart- normal rate, regular rhythm; no murmurs Abdomen- normal bowel sounds, nondistended, soft, nontender Extremities-mild lower leg edema, no warmth/tenderness RLE essentially normal Neuro- alert, oriented x 3; no gross focal neurologic deficits Skin- warm & dry Results & Data Results & Data ([facility]) Vital Signs (Past 12 Hours) Vital Signs Temp Pulse Pulse Resp BP Pulse Ox 11/07/21 15:00 100 H 11/07/21 14:50 37.5 C 96 H 18 109/70 90 11/07/21 11:50 39.0 C H 78 18 99/68 L 89 L 11/07/21 07:51 37.6 C H 80 20 108/66 92 11/07/21 07:00 85 all noted and reviewed including below
[2021-11-07] MEDS: REMDESIVIR 100 MG in SODIUM CHLORIDE 0.9% 230 ML IV SCH (20:03)
[2021-11-07] MEDS: SODIUM CHLORIDE 0.9% 10ML FLUSH IV SCH (21:37)
[2021-11-08 06:59] LABS: Eosinophils # (auto) 0.01 K/uL (0-0.5); Eosinophils % (auto) 0.2 %; Hematocrit (blood only) 38.6 % (42-52); Hemoglobin 13.1 g/dL (14.0-18.0); Immature Granulocytes # (auto) 0.02 K/uL (0.00-0.02); Immature Granulocytes % (auto) 0.3 %; Lymphocytes # (auto) 0.91 K/uL (1.2-3.4); Lymphocytes % (auto) 15.1 %; Mean Corpuscular Hemoglobin 29.8 pg (25-34); Mean Corpuscular Hgb Conc 33.9 g/dL (32-36); Mean Corpuscular Volume 87.9 fL (80-100); Mean Platelet Volume 9.3 fL (7.4-10.4); Monocytes # (auto) 0.13 K/uL (0.11-0.59); Monocytes % (auto) 2.2 %; Neutrophils # (auto) 4.97 K/uL (1.4-6.5); Neutrophils % (auto) 82.2 %; Platelet Count 178 K/uL (130-400); RDW Coefficient of Variation 13.4 % (11.5-14.5); RDW Standard Deviation 43.7 fL (36.4-46.3); Red Blood Count 4.39 M/uL (4.7-6.1); White Blood Count 6.04 K/uL (4.8-10.8)
[2021-11-08 07:22] LABS: INR 2.1 (0.9-1.1); Prothrombin Time 20.3 Seconds (9.0-12.0)
[2021-11-08 07:31] LABS: Albumin Level 2.4 gm/dl (3.4-5.0); BUN Creatinine Ratio 22.7 (10-20); Bilirubin Direct 0.2 mg/dl (0-0.2); Calcium 8.1 mg/dl (8.5-10.1); Creatinine Clr Calc Pharmacy 144.2 ml/min; Est GFR (African American) 128.5 ml/min; Est GFR (Non-African American) 110.8 ml/min; Potassium 3.8 mmol/L (3.5-5.1)
[2021-11-08] MEDS ORDERED: FUROSEMIDE INJ 20 MG/2 ML VIAL IV ONE (08:15)
[2021-11-08] MEDS: guaiFENesin 600 MG TABCR PO SCH ×2 (09:30→19:55)
[2021-11-08] MEDS: ACETAMINOPHEN 325 MG TAB PO PRN (09:30)
[2021-11-08] MEDS: dexAMETHasone 6 MG in SYRINGE 0 ML IV SCH (09:31)
--- NOTE | 2021-11-08 09:52 | XRay Report ---
XR chest 1V portable CLINICAL HISTORY: ff up covid pneumonia. Follow-up bilateral airspace opacities. COMPARISON STUDY: 11/05/2021 TECHNIQUE: 1 view of the chest FINDINGS: Single frontal view of the chest demonstrates the cardiomediastinal silhouette to be within normal li mits. Compared to the previous examination, increased interstitial and alveolar opacities are present bilaterally. There is no evidence for pleural effusion. There is no evidence for vascular congestion . There is no acute osseous pathology. IMPRESSION: Interval increase in bilateral interstitial and alveolar opacities again characteristic o f a viral type pneumonitis and Covid pneumonia. ACT 112: Negative or not required by law. Electronically signed by: El Rebolledo M.D. 11/08/2021 9:51 AM
[2021-11-08] MEDS ORDERED: CONSULT PHARMACY STA (09:55)
[2021-11-08] MEDS: CEFEPIME 2,000 MG in SYRINGE 0 ML IV SCH ×2 (10:48→18:21)
[2021-11-08] MEDS: DOXYCYCLINE HYCLATE 100 MG CAP PO SCH ×2 (10:48→19:55)
[2021-11-08 11:06] LABS: C Reactive Protein 14.9 mg/dl (0-0.29); Ferritin 1080.4 ng/ml (8-388)
--- NOTE | 2021-11-08 16:22 | Hospitalist Progress Note ---
Date of Service November 08, 2021 Assessment & Plan (1) COVID-19: Plan: per Dr. Pearl's notes with addendum including succeeding assessment and plan: Testing positive to COVID 19 on 10/27/21 CXR mildly progressed multifocal bilateral airspace opacities compatible with viral pneumonia. Denies any symptoms of SOB Received IV Dexamethasone and Remdesivir on admission Will continue Dexamethasone Discussed with pt about about Remdesivir therapy since his symptoms have been going for 11 days and he was testing positive on 10/27/21 Major side effect discussed with patient such as hepatotoxicity Pt would like to hold on additional dose for the remdesivir Will monitor inflammatory markers such as ESR , CRP, Ferritin Continue oxygen supplement 11/08/2021 Was on 15L NC, currently transition to high flow oxygen 90% FiO2 given additional Lasix 20mg iV this morning continue Decadron, Remdesivir Incentive spirometry, Flutter valve, self Proning, Mucinex monitor renal and liver function On Coumadin, INR 2.1 Febrile Repeat chest x-ray:Interval increase in bilateral interstitial and alveolar opacities again characteristic of a viral type pneumonitis and Covid pneumonia. Blood cultures: Pending Cefepime plus doxycycline day #1 started Monitor closely Diarrhea, Nausea/vomiting Present on admission with multiple episodes of diarrhea for more than 1 week resolved Hx DVT Factor V Leiden INR 2.1 Resume Coumadin Continue monitor PT/INR Dyslipidemia hold Atorvastatin DVT px on Coumadin Code status Full code plan of care discussed with patient in detail and at length all questions answered he is understanding, agreeable, comfortable with the plan of care (2) Nausea vomiting and diarrhea: Plan: per Dr. Pearl's notes with addendum including succeeding assessment and plan: Admission and Anticipated Discharge Date Admission Date: November 03, 2021 Subjective Follow-up for acute hypoxic respiratory failure, COVID-19 pneumonia, etc. Seen in prone position, on high flow oxygen Not in distress States he feels improved today compared to yesterday Minimal cough No chest pain Appetite is good No diarrhea No abdominal pain, urinary symptoms No leg pain No other symptoms Review of Systems Review of Systems: all noted and negative except for above Physical Exam Physical Exam: General- oriented x 3, not in distress, speaks in sentences with no effort or accessory muscle use Eyes- anicteric Neck- no JVD Lungs-positive crackles bilateral bases Heart- normal rate, regular rhythm; no murmurs Abdomen- normal bowel sounds, nondistended, soft, nontender Extremities- no pretibial edema, no calf tenderness Neuro- alert, oriented x 3; no gross focal neurologic deficits Skin- warm & dry Results & Data Results & Data ([facility]) Vital Signs (Past 12 Hours) Vital Signs Temp Pulse Pulse Resp BP Pulse Ox 11/08/21 16:11 37.2 C 81 24 116/73 97 11/08/21 15:39 78 18 94 11/08/21 11:29 37.4 C 89 24 99/63 L 90 11/08/21 11:00 87 20 97 11/08/21 10:40 37.4 C 11/08/21 08:13 38.4 C H 83 22 100/65 94 11/08/21 06:09 84 20 92 11/08/21 05:18 101 H all noted and reviewed including below
[2021-11-08] MEDS: WARFARIN SOD 5 MG TAB PO SCH (16:38)
[2021-11-08] MEDS ORDERED: WARFARIN SOD 1 MG TAB PO ONE (18:58)
[2021-11-08] MEDS: REMDESIVIR 100 MG in SODIUM CHLORIDE 0.9% 230 ML IV SCH (19:55)
[2021-11-08] MEDS: SODIUM CHLORIDE 0.9% 10ML FLUSH IV SCH (21:09)
[2021-11-09] MEDS: CEFEPIME 2,000 MG in SYRINGE 0 ML IV SCH ×3 (02:08→17:24)
[2021-11-09 06:52] LABS: Eosinophils # (auto) 0.04 K/uL (0-0.5); Eosinophils % (auto) 0.5 %; Hematocrit (blood only) 38.5 % (42-52); Hemoglobin 13.2 g/dL (14.0-18.0); Immature Granulocytes # (auto) 0.03 K/uL (0.00-0.02); Immature Granulocytes % (auto) 0.4 %; Lymphocytes # (auto) 0.96 K/uL (1.2-3.4); Lymphocytes % (auto) 12.4 %; Mean Corpuscular Hemoglobin 29.9 pg (25-34); Mean Corpuscular Hgb Conc 34.3 g/dL (32-36); Mean Corpuscular Volume 87.1 fL (80-100); Mean Platelet Volume 10.1 fL (7.4-10.4); Monocytes # (auto) 0.16 K/uL (0.11-0.59); Monocytes % (auto) 2.1 %; Neutrophils # (auto) 6.54 K/uL (1.4-6.5); Neutrophils % (auto) 84.6 %; Platelet Count 117 K/uL (130-400); RDW Coefficient of Variation 13.4 % (11.5-14.5); RDW Standard Deviation 42.8 fL (36.4-46.3); Red Blood Count 4.42 M/uL (4.7-6.1); White Blood Count 7.73 K/uL (4.8-10.8)
[2021-11-09 07:22] LABS: Albumin Level 2.2 gm/dl (3.4-5.0); BUN Creatinine Ratio 29.8 (10-20); Bilirubin Direct 0.2 mg/dl (0-0.2); Calcium 7.9 mg/dl (8.5-10.1); Creatinine Clr Calc Pharmacy 162.5 ml/min; Est GFR (African American) 135.2 ml/min; Est GFR (Non-African American) 116.6 ml/min; Potassium 3.6 mmol/L (3.5-5.1)
[2021-11-09 07:24] LABS: Total Protein 5.9 gm/dl (6.4-8.2)
[2021-11-09 07:28] LABS: INR 2.1 (0.9-1.1); Prothrombin Time 20.2 Seconds (9.0-12.0)
[2021-11-09] MEDS ORDERED: DEXAMETHASONE SOD INJ 4 MG/ML VIAL IV SCH (09:30)
[2021-11-09] MEDS: DOXYCYCLINE HYCLATE 100 MG CAP PO SCH ×2 (09:34→20:34)
[2021-11-09] MEDS: guaiFENesin 600 MG TABCR PO SCH ×2 (09:36→20:34)
[2021-11-09] MEDS: dexAMETHasone 10 MG in SYRINGE 0 ML IV SCH ×2 (10:08→20:34)
--- NOTE | 2021-11-09 12:46 | Hospitalist Progress Note ---
Date of Service November 09, 2021 Assessment & Plan (1) COVID-19: Plan: per Dr. Pearl's notes with addendum including succeeding assessment and plan: Testing positive to COVID 19 on 10/27/21 CXR mildly progressed multifocal bilateral airspace opacities compatible with viral pneumonia. Denies any symptoms of SOB Received IV Dexamethasone and Remdesivir on admission Will continue Dexamethasone Discussed with pt about about Remdesivir therapy since his symptoms have been going for 11 days and he was testing positive on 10/27/21 Major side effect discussed with patient such as hepatotoxicity Pt would like to hold on additional dose for the remdesivir Will monitor inflammatory markers such as ESR , CRP, Ferritin Continue oxygen supplement 11/09/2021 Was on 15L NC, currently transitioned to high flow oxygen 90% FiO2 ( day 2) CRP elevated to 24 increase Decadron to 20 mg twice daily x5 days then 10 mg twice daily for 5 days Completed course of remdesivir Incentive spirometry, Flutter valve, self Proning, Mucinex monitor renal and liver function On Coumadin, INR 2.1 Fever Repeat chest x-ray:Interval increase in bilateral interstitial and alveolar opacities again characteristic of a viral type pneumonitis and Covid pneumonia. Improving Blood cultures: Pending Cefepime plus doxycycline day #2 started Monitor closely Diarrhea, Nausea/vomiting Present on admission with multiple episodes of diarrhea for more than 1 week resolved Hx DVT Factor V Leiden INR 2.1 Resume Coumadin Continue monitor PT/INR Dyslipidemia hold Atorvastatin DVT px on Coumadin Code status Full code plan of care discussed with patient in detail and at length all questions answered he is understanding, agreeable, comfortable with the plan of care (2) Nausea vomiting and diarrhea: Plan: per Dr. Pearl's notes with addendum including succeeding assessment and plan: Admission and Anticipated Discharge Date Admission Date: November 03, 2021 Subjective Follow-up acute hypoxic respiratory failure, COVID-19 pneumonia, etc. Seen resting in bed, comfortable, not in distress Appears brighter On high flow O2, 94% States he feels somewhat better today compared to yesterday Breathing is okay on high flow O2 No chest pain No abdominal pain, diarrhea Appetite is good No other symptoms Review of Systems Review of Systems: all noted and negative except for above Physical Exam Physical Exam: General- oriented x 3, not in distress, speaks in sentences with no effort or accessory muscle use Eyes- anicteric Neck- no JVD Lungs- clear breath sounds bilaterally, no rales/wheezes Heart- normal rate, regular rhythm; no murmurs Abdomen- normal bowel sounds, nondistended, soft, nontender Extremities- no pretibial edema, no calf tenderness Neuro- alert, oriented x 3; no gross focal neurologic deficits Skin- warm & dry Results & Data Results & Data ([facility]) Vital Signs (Past 12 Hours) Vital Signs Temp Pulse Pulse Resp BP BP Pulse Ox 11/09/21 11:50 37.3 C 86 26 H 112/69 95 11/09/21 09:01 90 22 94 11/09/21 07:28 37.1 C 96 H 20 115/69 92 11/09/21 06:11 83 11/09/21 03:00 36.9 C 95 H 20 109/73 15 L 11/09/21 02:45 90 22 91 11/09/21 02:01 88 18 93 all noted and reviewed including below
[2021-11-09] MEDS: WARFARIN SOD 7.5 MG TAB PO SCH (16:31)
[2021-11-09] MEDS: MELATONIN 3 MG TAB PO PRN (20:51)
[2021-11-10] MEDS: CEFEPIME 2,000 MG in SYRINGE 0 ML IV SCH ×3 (02:09→17:37)
[2021-11-10 06:38] LABS: Basophils # (auto) 0.01 K/uL (0-0.2); Basophils % (auto) 0.1 %; Hematocrit (blood only) 39.8 % (42-52); Hemoglobin 13.6 g/dL (14.0-18.0); Immature Granulocytes # (auto) 0.03 K/uL (0.00-0.02); Immature Granulocytes % (auto) 0.4 %; Lymphocytes # (auto) 0.41 K/uL (1.2-3.4); Mean Corpuscular Hemoglobin 29.6 pg (25-34); Mean Corpuscular Hgb Conc 34.2 g/dL (32-36); Mean Corpuscular Volume 86.5 fL (80-100); Mean Platelet Volume 10.4 fL (7.4-10.4); Monocytes # (auto) 0.15 K/uL (0.11-0.59); Monocytes % (auto) 2.2 %; Neutrophils % (auto) 91.3 %; Platelet Count 123 K/uL (130-400); RDW Coefficient of Variation 13.4 % (11.5-14.5); RDW Standard Deviation 42.7 fL (36.4-46.3)
[2021-11-10 06:49] LABS: INR 2.2 (0.9-1.1); Prothrombin Time 21.3 Seconds (9.0-12.0)
[2021-11-10 07:07] LABS: Albumin Level 2.4 gm/dl (3.4-5.0); BUN Creatinine Ratio 30.5 (10-20); Bilirubin Direct 0.2 mg/dl (0-0.2); Calcium 8.5 mg/dl (8.5-10.1); Creatinine Clr Calc Pharmacy 136.4 ml/min; Est GFR (African American) 125.9 ml/min; Est GFR (Non-African American) 108.6 ml/min; Potassium 3.8 mmol/L (3.5-5.1)
[2021-11-10 07:09] LABS: Bilirubin,Total 0.8 mg/dl (0.2-1); Total Protein 6.6 gm/dl (6.4-8.2)
[2021-11-10] MEDS ORDERED: dexAMETHasone 10 MG in SYRINGE 0 ML IV SCH (09:00)
[2021-11-10] MEDS: DOXYCYCLINE HYCLATE 100 MG CAP PO SCH ×2 (09:41→21:06)
[2021-11-10] MEDS: dexAMETHasone 10 MG in SYRINGE 0 ML IV SCH ×2 (09:42→21:06)
[2021-11-10] MEDS: guaiFENesin 600 MG TABCR PO SCH ×2 (09:43→21:06)
[2021-11-10] MEDS: WARFARIN SOD 7.5 MG TAB PO SCH (16:42)
--- NOTE | 2021-11-10 17:01 | Hospitalist Progress Note ---
Date of Service November 10, 2021 Assessment & Plan (1) COVID-19: Plan: per Dr. Pearl's notes with addendum including succeeding assessment and plan: Testing positive to COVID 19 on 10/27/21 CXR mildly progressed multifocal bilateral airspace opacities compatible with viral pneumonia. Denies any symptoms of SOB Received IV Dexamethasone and Remdesivir on admission Will continue Dexamethasone Discussed with pt about about Remdesivir therapy since his symptoms have been going for 11 days and he was testing positive on 10/27/21 Major side effect discussed with patient such as hepatotoxicity Pt would like to hold on additional dose for the remdesivir Will monitor inflammatory markers such as ESR , CRP, Ferritin Continue oxygen supplement 11/10/2021 Was oxygen supplement requirement increased since admission, on 15L NC, transitioned to high flow oxygen 90% FiO2 , now 85% FiO2 CRP elevated to 24, improved to 15 increase Decadron to 20 mg twice daily x5 days (day number 2 out of 5) then 10 mg twice daily for 5 days Completed course of remdesivir did not meet criteria for baricitinib Incentive spirometry, Flutter valve, self Proning, Mucinex monitor renal and liver function On Coumadin, INR 2.2 Fever Repeat chest x-ray:Interval increase in bilateral interstitial and alveolar opacities again characteristic of a viral type pneumonitis and Covid pneumonia. Afebrile x2 days now Blood cultures: Negative so far Cefepime plus doxycycline day #3 started Monitor closely Diarrhea, Nausea/vomiting Present on admission with multiple episodes of diarrhea for more than 1 week resolved Hx DVT Factor V Leiden INR 2.2 Continue Coumadin Continue monitor PT/INR Dyslipidemia hold Atorvastatin DVT px on Coumadin Code status Full code plan of care discussed with patient in detail and at length all questions answered he is understanding, agreeable, comfortable with the plan of care (2) Nausea vomiting and diarrhea: Plan: per Dr. Pearl's notes with addendum including succeeding assessment and plan: Admission and Anticipated Discharge Date Admission Date: November 03, 2021 Subjective Follow-up for acute respiratory failure, hypoxia, COVID-19 pneumonia, etc. Seen laying in bed, comfortable, not in distress On high flow oxygen, 85% Smiling, pleasant States he feels okay today overall Breathing about the same No new issues with breathing Denies chest pain Appetite is great No leg pain No other symptoms Review of Systems Review of Systems: all noted and negative except for above Physical Exam Physical Exam: General- oriented x 3, not in distress, speaks in sentences with no effort or accessory muscle use Eyes- anicteric Neck- no JVD Lungs-positive crackles bilaterally, no wheezing Good air entry bilaterally Heart- normal rate, regular rhythm; no murmurs Abdomen- normal bowel sounds, nondistended, soft, nontender Extremities-mild edema left lower extremity Right lower extremity essentially normal Neuro- alert, oriented x 3; no gross focal neurologic deficits Skin- warm & dry Results & Data Results & Data ([facility]) Vital Signs (Past 12 Hours) Vital Signs Temp Pulse Pulse Resp BP BP Pulse Ox 11/10/21 15:00 36.4 C L 82 24 121/62 92 11/10/21 14:20 75 11/10/21 13:57 80 22 93 11/10/21 11:16 20 92 11/10/21 11:00 36.4 C L 83 24 110/68 94 11/10/21 08:05 71 20 92 11/10/21 06:19 68 11/10/21 05:29 75 all noted and reviewed including below
[2021-11-10] MEDS: MELATONIN 3 MG TAB PO PRN (21:06)
[2021-11-10] MEDS: ACETAMINOPHEN 325 MG TAB PO PRN (23:04)
[2021-11-11] MEDS: CEFEPIME 2,000 MG in SYRINGE 0 ML IV SCH ×3 (02:04→17:47)
[2021-11-11 07:46] LABS: Basophils # (auto) 0.01 K/uL (0-0.2); Basophils % (auto) 0.1 %; Hematocrit (blood only) 42.6 % (42-52); Hemoglobin 14.5 g/dL (14.0-18.0); Immature Granulocytes # (auto) 0.05 K/uL (0.00-0.02); Immature Granulocytes % (auto) 0.5 %; Lymphocytes # (auto) 0.68 K/uL (1.2-3.4); Lymphocytes % (auto) 6.5 %; Mean Corpuscular Hemoglobin 29.4 pg (25-34); Mean Corpuscular Volume 86.4 fL (80-100); Mean Platelet Volume 10.1 fL (7.4-10.4); Monocytes # (auto) 0.08 K/uL (0.11-0.59); Monocytes % (auto) 0.8 %; Neutrophils # (auto) 9.68 K/uL (1.4-6.5); Neutrophils % (auto) 92.1 %; Platelet Count 134 K/uL (130-400); RDW Coefficient of Variation 13.5 % (11.5-14.5); Red Blood Count 4.93 M/uL (4.7-6.1)
[2021-11-11 08:02] LABS: INR 2.8 (0.9-1.1); Prothrombin Time 26.1 Seconds (9.0-12.0)
[2021-11-11 08:24] LABS: Albumin Level 2.8 gm/dl (3.4-5.0); BUN Creatinine Ratio 30.5 (10-20); Bilirubin,Total 0.9 mg/dl (0.2-1); Calcium 8.5 mg/dl (8.5-10.1); Creatinine Clr Calc Pharmacy 123.7 ml/min; Est GFR (African American) 120.6 ml/min; Total Protein 7.4 gm/dl (6.4-8.2)
[2021-11-11 08:53] LABS: Bilirubin Direct 0.2 mg/dl (0-0.2)
[2021-11-11] MEDS: dexAMETHasone 10 MG in SYRINGE 0 ML IV SCH ×2 (09:05→20:20)
[2021-11-11] MEDS: guaiFENesin 600 MG TABCR PO SCH ×2 (09:06→20:19)
[2021-11-11] MEDS: DOXYCYCLINE HYCLATE 100 MG CAP PO SCH ×2 (09:07→20:20)
--- NOTE | 2021-11-11 13:02 | Hospitalist Progress Note ---
Date of Service November 11, 2021 Assessment & Plan (1) COVID-19: Plan: per Dr. Pearl's notes with addendum including succeeding assessment and plan: Testing positive to COVID 19 on 10/27/21 CXR mildly progressed multifocal bilateral airspace opacities compatible with viral pneumonia. 11/11/2021 oxygen supplement requirement increased since admission, on 15L NC, transitioned to high flow oxygen 90% FiO2 , now back on 15 L of nasal cannula CRP elevated to 24, improved to 15 When patient required high flow oxygen, increased Decadron to 10 mg twice daily x5 days (day number 3 out of 5, then 10mg daily x 5 days) Completed course of remdesivir did not meet criteria for baricitinib as patient was already admitted for more than 72 hours Incentive spirometry, Flutter valve, self Proning, Mucinex monitor renal and liver function On Coumadin, INR 2.8 Fever Repeat chest x-ray:Interval increase in bilateral interstitial and alveolar opacities again characteristic of a viral type pneumonitis and Covid pneumonia. Afebrile x 3 days now Blood cultures: Negative so far Cefepime plus doxycycline day #3 Monitor closely Diarrhea, Nausea/vomiting Present on admission with multiple episodes of diarrhea for more than 1 week resolved Hx DVT, Factor V Leiden Has mild edema of the left lower extremity, chronic per patient Doppler ultrasound done during this admission: nonocclusive thrombus present within the common femoral vein and the proximal to mid superficial femoral vein- chronic per Radiologist INR 2.8 Continue Coumadin 5mg today, may need alternating 7.5 and 5 mg Continue monitor PT/INR Dyslipidemia hold Atorvastatin DVT px on Coumadin Code status Full code plan of care discussed with patient in detail and at length all questions answered he is understanding, agreeable, comfortable with the plan of care (2) Nausea vomiting and diarrhea: Plan: per Dr. Pearl's notes with addendum including succeeding assessment and plan: Admission and Anticipated Discharge Date Admission Date: November 03, 2021 Subjective Follow-up for acute hypoxic respiratory failure, COVID-19 pneumonia, etc. Seen resting in bed, on 15 L of oxygen via nasal cannula, not in distress, pleasant States he feels a little bit better than yesterday Breathing is improving gradually day by day No cough, chest pain, palpitations, dizziness, nausea vomiting, abdominal pain No other symptoms Review of Systems Review of Systems: all noted and negative except for above Physical Exam Physical Exam: General- oriented x 3, not in distress, speaks in sentences with no effort or accessory muscle use Eyes- anicteric Neck- no JVD Lungs-mild rales bilaterally at the bases, no wheezing Heart- normal rate, regular rhythm; no murmurs Abdomen- normal bowel sounds, nondistended, soft, nontender Extremities- mild LLE edema, no calf tenderness Neuro- alert, oriented x 3; no gross focal neurologic deficits Skin- warm & dry Results & Data Results & Data ([facility]) Vital Signs (Past 12 Hours) Vital Signs Temp Pulse Pulse Resp BP Pulse Ox 11/11/21 11:00 36.3 C L 77 24 112/55 L 95 11/11/21 08:00 36.4 C 78 22 105/64 91 11/11/21 06:29 78 11/11/21 03:36 36.6 C 69 22 96/34 L 92 all noted and reviewed including below
[2021-11-11] MEDS: WARFARIN SOD 5 MG TAB PO SCH (15:55)
[2021-11-11] MEDS: ACETAMINOPHEN 325 MG TAB PO PRN (20:20)
[2021-11-11] MEDS: MELATONIN 3 MG TAB PO PRN (20:20)
[2021-11-12] MEDS: CEFEPIME 2,000 MG in SYRINGE 0 ML IV SCH ×3 (01:30→16:56)
[2021-11-12] MEDS: ACETAMINOPHEN 325 MG TAB PO PRN ×4 (04:16→21:27)
[2021-11-12 06:33] LABS: Hematocrit (blood only) 39.7 % (42-52); Hemoglobin 13.6 g/dL (14.0-18.0); Immature Granulocytes # (auto) 0.04 K/uL (0.00-0.02); Immature Granulocytes % (auto) 0.4 %; Lymphocytes % (auto) 7.6 %; Mean Corpuscular Hemoglobin 29.6 pg (25-34); Mean Corpuscular Hgb Conc 34.3 g/dL (32-36); Mean Corpuscular Volume 86.3 fL (80-100); Mean Platelet Volume 10.1 fL (7.4-10.4); Monocytes # (auto) 0.15 K/uL (0.11-0.59); Monocytes % (auto) 1.4 %; Neutrophils # (auto) 9.56 K/uL (1.4-6.5); Neutrophils % (auto) 90.6 %; Platelet Count 149 K/uL (130-400); RDW Coefficient of Variation 13.6 % (11.5-14.5); RDW Standard Deviation 43.1 fL (36.4-46.3); White Blood Count 10.55 K/uL (4.8-10.8)
[2021-11-12 06:38] LABS: INR 3.3 (0.9-1.1); Prothrombin Time 30.2 Seconds (9.0-12.0)
[2021-11-12] MEDS: dexAMETHasone 10 MG in SYRINGE 0 ML IV SCH ×2 (09:05→21:27)
[2021-11-12] MEDS: DOXYCYCLINE HYCLATE 100 MG CAP PO SCH ×2 (09:06→21:27)
[2021-11-12] MEDS: guaiFENesin 600 MG TABCR PO SCH ×2 (09:06→21:27)
[2021-11-12] MEDS: dexAMETHasone 6 MG in SYRINGE 0 ML IV SCH (12:10)
[2021-11-12] MEDS: WARFARIN SOD 5 MG TAB PO SCH (16:55)
[2021-11-12] MEDS: MELATONIN 3 MG TAB PO PRN (21:33)
--- NOTE | 2021-11-12 22:02 | Hospitalist Progress Note ---
Date of Service November 12, 2021 Assessment & Plan (1) COVID-19: Plan: Testing positive to COVID 19 on 10/27/21 CXR mildly progressed multifocal bilateral airspace opacities compatible with viral pneumonia. oxygen supplement requirement increased since admission, on 15L [place], transitioned to high flow oxygen 90% FiO2 , now back on 15 L of nasal cannula CRP elevated to 24, improved to 15 When patient required high flow oxygen, increased Decadron to 10 mg twice daily x5 days (day number 3 out of 5, then 10mg daily x 5 days) Completed course of remdesivir did not meet criteria for baricitinib as patient was already admitted for more than 72 hours Incentive spirometry, Flutter valve, self Proning, Mucinex monitor renal and liver function On Coumadin, INR 3.3 today Fever Repeat chest x-ray:Interval increase in bilateral interstitial and alveolar opacities again characteristic of a viral type pneumonitis and Covid pneumonia. Afebrile x 3 days now Blood cultures: Negative so far Procalcitonin negative Cefepime plus doxycycline day #4 Monitor closely Diarrhea, Nausea/vomiting Present on admission with multiple episodes of diarrhea for more than 1 week resolved Hx DVT, Factor V Leiden Has mild edema of the left lower extremity, chronic per patient Doppler ultrasound done during this admission: nonocclusive thrombus present within the common femoral vein and the proximal to mid superficial femoral vein- chronic per Radiologist INR 3.3 Continue Coumadin 5mg today, may need alternating 7.5 and 5 mg Continue monitor PT/INR Dyslipidemia hold Atorvastatin DVT px on Coumadin Code status Full code (2) Nausea vomiting and diarrhea: Plan: per Dr. Pearl's notes with addendum including succeeding assessment and plan: Admission and Anticipated Discharge Date Admission Date: November 03, 2021 Subjective Pt was seen and examined for follow up of hypoxic respiratory failure due to COVID-19 pneumonia Lying in bed with no acute distress on high flow oxygen supplement He said that he feels much better today No cough, chest pain, palpitations, dizziness, nausea vomiting, abdominal pain Review of Systems Review of Systems: All systems reviewed & are unremarkable except as noted in Subjective Physical Exam Physical Exam: General- No acute distress Head- atraumatic Eyes- PERRL, EOMI, ENT- oropharynx clear Neck- supple, no JVD Lungs- diminished BS Heart- regular rhythm; no murmur Abdomen- normal bowel sounds, soft, nontender Extremities- no calf tenderness Neuro- alert, oriented x 3; PERRL, EOMI; no facial palsy; no dysarthria Skin- warm & dry Results & Data Results & Data ([facility]) Vital Signs (Past 12 Hours) Vital Signs Temp Pulse Pulse Resp BP Pulse Ox 11/12/21 20:40 72 20 84 L 11/12/21 19:44 36.6 C 85 20 100/53 L 90 11/12/21 15:31 36.7 C 72 20 109/70 96 11/12/21 15:00 90 11/12/21 14:42 73 24 88 L 11/12/21 11:45 78 20 89 L 11/12/21 11:00 36.3 C L 87 24 96/61 L 92
[2021-11-13] MEDS: CEFEPIME 2,000 MG in SYRINGE 0 ML IV SCH ×3 (02:15→17:06)
[2021-11-13] MEDS: DOXYCYCLINE HYCLATE 100 MG CAP PO SCH ×2 (08:22→21:52)
[2021-11-13] MEDS: guaiFENesin 600 MG TABCR PO SCH ×2 (08:23→20:11)
[2021-11-13] MEDS: ACETAMINOPHEN 325 MG TAB PO PRN ×3 (08:29→20:10)
[2021-11-13] MEDS: dexAMETHasone 10 MG in SYRINGE 0 ML IV SCH ×2 (08:29→20:12)
[2021-11-13 10:05] LABS: INR 3.1 (0.9-1.1); Prothrombin Time 28.6 Seconds (9.0-12.0)
[2021-11-13 10:12] LABS: BUN Creatinine Ratio 30.8 (10-20); Calcium 8.1 mg/dl (8.5-10.1); Est GFR (African American) 126.7 ml/min; Est GFR (Non-African American) 109.3 ml/min; Potassium 4.2 mmol/L (3.5-5.1)
[2021-11-13] MEDS: WARFARIN SOD 5 MG TAB PO SCH (17:07)
[2021-11-13] MEDS: MELATONIN 3 MG TAB PO PRN (20:10)
--- NOTE | 2021-11-13 22:50 | Hospitalist Progress Note ---
Date of Service November 13, 2021 Assessment & Plan (1) COVID-19: Plan: Testing positive to COVID 19 on 10/27/21 CXR mildly progressed multifocal bilateral airspace opacities compatible with viral pneumonia. oxygen supplement requirement increased since admission, on 15L [place], transitioned to high flow oxygen 90% FiO2 , now back on 15 L of nasal cannula CRP elevated to 24, improved to 15 When patient required high flow oxygen, increased Decadron to 10 mg twice daily x5 days, then 10mg daily x 5 days) Completed course of remdesivir did not meet criteria for baricitinib as patient was already admitted for more than 72 hours Incentive spirometry, Flutter valve, self Proning, Mucinex monitor renal and liver function On Coumadin, INR 3.1 today Fever Repeat chest x-ray:Interval increase in bilateral interstitial and alveolar opacities again characteristic of a viral type pneumonitis and Covid pneumonia. Afebrile x 3 days now Blood cultures: Negative so far Procalcitonin negative Cefepime plus doxycycline day #4 Monitor closely Diarrhea, Nausea/vomiting Present on admission with multiple episodes of diarrhea for more than 1 week resolved Hx DVT, Factor V Leiden Has mild edema of the left lower extremity, chronic per patient Doppler ultrasound done during this admission: nonocclusive thrombus present within the common femoral vein and the proximal to mid superficial femoral vein- chronic per Radiologist INR 3.1 Continue Coumadin 5mg today, may need alternating 7.5 and 5 mg Continue monitor PT/INR Dyslipidemia hold Atorvastatin DVT px on Coumadin Code status Full code (2) Nausea vomiting and diarrhea: Plan: per Dr. Pearl's notes with addendum including succeeding assessment and plan: Admission and Anticipated Discharge Date Admission Date: November 03, 2021 Subjective Pt was seen and examined for follow up of hypoxic respiratory failure due to COVID-19 pneumonia Lying in bed proning with no acute distress on high flow oxygen supplement He said that he feels much better today No cough, chest pain, palpitations, dizziness, nausea vomiting, abdominal pain Review of Systems Review of Systems: All systems reviewed & are unremarkable except as noted in Subjective Physical Exam Physical Exam: General- No acute distress Head- atraumatic Eyes- PERRL, EOMI, ENT- oropharynx clear Neck- supple, no JVD Lungs- diminished BS Heart- regular rhythm; no murmur Abdomen- normal bowel sounds, soft, nontender Extremities- no calf tenderness Neuro- alert, oriented x 3; PERRL, EOMI; no facial palsy; no dysarthria Skin- warm & dry Results & Data Results & Data ([facility]) Vital Signs (Past 12 Hours) Vital Signs Temp Pulse Pulse Resp BP Pulse Ox 11/13/21 19:45 26 H 89 L 11/13/21 19:00 36.6 C 91 H 20 104/64 86 L 11/13/21 17:15 91 11/13/21 17:00 70 L 11/13/21 15:56 20 93 11/13/21 15:00 116 H 11/13/21 14:26 36.9 C 90 18 121/76 98 11/13/21 11:21 37.1 C 111 H 20 122/77 111 H 11/13/21 11:20 77 18 99
[2021-11-14] MEDS: CEFEPIME 2,000 MG in SYRINGE 0 ML IV SCH ×3 (02:08→17:35)
[2021-11-14] MEDS: ACETAMINOPHEN 325 MG TAB PO PRN ×3 (03:31→13:05)
[2021-11-14] MEDS: dexAMETHasone 10 MG in SYRINGE 0 ML IV SCH (09:03)
[2021-11-14] MEDS: DOXYCYCLINE HYCLATE 100 MG CAP PO SCH ×2 (09:03→22:01)
[2021-11-14] MEDS: guaiFENesin 600 MG TABCR PO SCH ×2 (09:03→20:30)
[2021-11-14 11:43] LABS: Prothrombin Time 28.2 Seconds (9.0-12.0)
[2021-11-14 11:47] LABS: BUN Creatinine Ratio 31.7 (10-20); Calcium 8.1 mg/dl (8.5-10.1); Creatinine Clr Calc Pharmacy 141.3 ml/min; Est GFR (African American) 127.6 ml/min; Est GFR (Non-African American) 110.1 ml/min; Potassium 4.4 mmol/L (3.5-5.1)
[2021-11-14] MEDS: WARFARIN SOD 5 MG TAB PO SCH (17:34)
[2021-11-14] MEDS: MELATONIN 3 MG TAB PO PRN (20:29)
[2021-11-14] MEDS: oxyCODONE HCL IR 5 MG TAB (IMMEDIATE RELEASE) PO PRN (20:29)
[2021-11-15] MEDS: SODIUM CHLORIDE 0.9% 500 ML IV ONE ×2 (00:11→10:48)
[2021-11-15 01:29] LABS: Basophils # (auto) 0.01 K/uL (0-0.2); Basophils % (auto) 0.1 %; Hemoglobin 15.2 g/dL (14.0-18.0); Immature Granulocytes # (auto) 0.07 K/uL (0.00-0.02); Immature Granulocytes % (auto) 0.6 %; Lymphocytes # (auto) 1.39 K/uL (1.2-3.4); Mean Corpuscular Hemoglobin 30.3 pg (25-34); Mean Corpuscular Hgb Conc 34.5 g/dL (32-36); Mean Corpuscular Volume 87.8 fL (80-100); Mean Platelet Volume 9.6 fL (7.4-10.4); Monocytes # (auto) 0.57 K/uL (0.11-0.59); Monocytes % (auto) 4.5 %; Neutrophils # (auto) 10.56 K/uL (1.4-6.5); Neutrophils % (auto) 83.8 %; Platelet Count 185 K/uL (130-400); RDW Coefficient of Variation 13.5 % (11.5-14.5); RDW Standard Deviation 43.4 fL (36.4-46.3); Red Blood Count 5.01 M/uL (4.7-6.1)
[2021-11-15] MEDS ORDERED: dexAMETHasone 10 MG in SYRINGE 0 ML IV ONE (02:15)
[2021-11-15] MEDS ORDERED: dexAMETHasone**PF** 10 MG/ML VIAL IM ONE (02:35)
[2021-11-15] MEDS: ACETAMINOPHEN 325 MG TAB PO PRN ×3 (06:12→18:24)
[2021-11-15 07:00] LABS: INR 3.2 (0.9-1.1); Prothrombin Time 29.4 Seconds (9.0-12.0)
[2021-11-15 07:16] LABS: BUN Creatinine Ratio 40.8 (10-20); Calcium 8.1 mg/dl (8.5-10.1); Creatinine Clr Calc Pharmacy 156.5 ml/min; Est GFR (African American) 133.1 ml/min; Est GFR (Non-African American) 114.9 ml/min; Magnesium 2.2 mg/dl (1.8-2.4)
[2021-11-15] MEDS: guaiFENesin 600 MG TABCR PO SCH ×2 (07:49→20:42)
[2021-11-15] MEDS ORDERED: dexAMETHasone 10 MG in SYRINGE 0 ML IV SCH (09:00)
[2021-11-15] MEDS: CEFEPIME 2,000 MG in SYRINGE 0 ML IV SCH (09:32)
[2021-11-15] MEDS: WARFARIN SOD 5 MG TAB PO SCH (16:04)
--- NOTE | 2021-11-15 23:54 | Hospitalist Progress Note ---
Date of Service November 15, 2021 Assessment & Plan (1) COVID-19: Plan: Testing positive to COVID 19 on 10/27/21 CXR mildly progressed multifocal bilateral airspace opacities compatible with viral pneumonia. oxygen supplement requirement increased since admission, on 15L [place], transitioned to high flow oxygen 90% FiO2 , now back on 15 L of nasal cannula CRP elevated to 24, improved to 15 When patient required high flow oxygen, increased Decadron to 10 mg twice daily x5 days, then 10mg daily x 5 days ( last dose will be on 11/17) Completed course of remdesivir did not meet criteria for baricitinib as patient was already admitted for more than 72 hours Incentive spirometry, Flutter valve, self Proning, Mucinex monitor renal and liver function On Coumadin, INR 3.2 today Clinically improves Fever Repeat chest x-ray:Interval increase in bilateral interstitial and alveolar opacities again characteristic of a viral type pneumonitis and Covid pneumonia. Afebrile x 3 days now Blood cultures: Negative so far Procalcitonin negative Completed the course of Cefepime plus doxycycline Monitor closely Diarrhea, Nausea/vomiting Present on admission with multiple episodes of diarrhea for more than 1 week resolved Hx DVT, Factor V Leiden Has mild edema of the left lower extremity, chronic per patient Doppler ultrasound done during this admission: nonocclusive thrombus present within the common femoral vein and the proximal to mid superficial femoral vein- chronic per Radiologist INR 3.2 Continue Coumadin 5mg today, may need alternating 7.5 and 5 mg Continue monitor PT/INR Dyslipidemia hold Atorvastatin DVT px on Coumadin Code status Full code (2) Nausea vomiting and diarrhea: Plan: per Dr. Pearl's notes with addendum including succeeding assessment and plan: Admission and Anticipated Discharge Date Admission Date: November 03, 2021 Subjective Pt was seen and examined for follow up of hypoxic respiratory failure due to COVID-19 pneumonia Lying in bed proning with no acute distress He said that he feels much better today, currently on 6L NC BP dropped this morning after receiving Oxycodone No cough, chest pain, palpitations, dizziness, nausea vomiting, abdominal pain Review of Systems Review of Systems: All systems reviewed & are unremarkable except as noted in Subjective Physical Exam Physical Exam: General- No acute distress Head- atraumatic Eyes- PERRL, EOMI, ENT- oropharynx clear Neck- supple, no JVD Lungs- diminished BS Heart- regular rhythm; no murmur Abdomen- normal bowel sounds, soft, nontender Extremities- no calf tenderness Neuro- alert, oriented x 3; PERRL, EOMI; no facial palsy; no dysarthria Skin- warm & dry Results & Data Results & Data ([facility]) Vital Signs (Past 12 Hours) Vital Signs Temp Pulse Pulse Resp BP Pulse Ox 11/15/21 22:50 36.6 C 89 17 102/68 97 11/15/21 19:13 37.1 C 102 H 20 111/73 98 11/15/21 15:45 36.6 C 89 20 94/58 L 93 11/15/21 15:43 86 11/15/21 12:01 37.4 C 99 H 20 91/57 L 95
[2021-11-16] MEDS: ACETAMINOPHEN 325 MG TAB PO PRN ×5 (01:35→19:58)
[2021-11-16] MEDS: guaiFENesin 600 MG TABCR PO SCH ×2 (08:06→21:12)
[2021-11-16] MEDS: dexAMETHasone 10 MG in SYRINGE 0 ML IV SCH (08:06)
--- NOTE | 2021-11-16 08:16 | Hospitalist Progress Note ---
Date of Service November 14, 2021 Assessment & Plan (1) COVID-19: Plan: Testing positive to COVID 19 on 10/27/21 CXR mildly progressed multifocal bilateral airspace opacities compatible with viral pneumonia. oxygen supplement requirement increased since admission, on 15L [place], transitioned to high flow oxygen 90% FiO2 , now back on 15 L of nasal cannula CRP elevated to 24, improved to 15 When patient required high flow oxygen, increased Decadron to 10 mg twice daily x5 days, then 10mg daily x 5 days) Completed course of remdesivir did not meet criteria for baricitinib as patient was already admitted for more than 72 hours Incentive spirometry, Flutter valve, self Proning, Mucinex monitor renal and liver function On Coumadin, INR 3 today Fever Repeat chest x-ray:Interval increase in bilateral interstitial and alveolar opacities again characteristic of a viral type pneumonitis and Covid pneumonia. Afebrile x 3 days now Blood cultures: Negative so far Procalcitonin negative Continue Cefepime plus doxycycline Monitor closely Diarrhea, Nausea/vomiting Present on admission with multiple episodes of diarrhea for more than 1 week resolved Hx DVT, Factor V Leiden Has mild edema of the left lower extremity, chronic per patient Doppler ultrasound done during this admission: nonocclusive thrombus present within the common femoral vein and the proximal to mid superficial femoral vein- chronic per Radiologist INR 3 Continue Coumadin 5mg today, may need alternating 7.5 and 5 mg Continue monitor PT/INR Dyslipidemia hold Atorvastatin DVT px on Coumadin Code status Full code (2) Nausea vomiting and diarrhea: Plan: per Dr. Pearl's notes with addendum including succeeding assessment and plan: Admission and Anticipated Discharge Date Admission Date: November 03, 2021 Subjective Pt was seen and examined for follow up of hypoxic respiratory failure due to COVID-19 pneumonia Lying in bed proning with no acute distress on high flow oxygen supplement He said that he feels much better today No cough, chest pain, palpitations, dizziness, nausea vomiting, abdominal pain Review of Systems Review of Systems: All systems reviewed & are unremarkable except as noted in Subjective Physical Exam Physical Exam: General- No acute distress Head- atraumatic Eyes- PERRL, EOMI, ENT- oropharynx clear Neck- supple, no JVD Lungs- diminished BS Heart- regular rhythm; no murmur Abdomen- normal bowel sounds, soft, nontender Extremities- no calf tenderness Neuro- alert, oriented x 3; PERRL, EOMI; no facial palsy; no dysarthria Skin- warm & dry Results & Data Results & Data ([facility]) Vital Signs (Past 12 Hours) Vital Signs Temp Pulse Pulse Resp BP BP Pulse Ox 11/16/21 07:38 90/60 L 11/16/21 07:24 36.6 C 98 H 20 78/49 L 98 11/16/21 03:31 37.1 C 107 H 20 98/65 L 96 11/15/21 22:50 36.6 C 89 17 102/68 97 11/15/21 22:19 89
[2021-11-16 09:21] LABS: INR 2.7 (0.9-1.1); Prothrombin Time 25.6 Seconds (9.0-12.0)
[2021-11-16 10:07] LABS: BUN Creatinine Ratio 23.7 (10-20); Calcium 7.9 mg/dl (8.5-10.1); Creatinine Clr Calc Pharmacy 145.5 ml/min; Est GFR (African American) 130.3 ml/min; Est GFR (Non-African American) 112.4 ml/min; Potassium 3.5 mmol/L (3.5-5.1)
[2021-11-16] MEDS: WARFARIN SOD 5 MG TAB PO SCH (14:58)
[2021-11-16] MEDS: MELATONIN 3 MG TAB PO PRN (23:20)
--- NOTE | 2021-11-16 23:47 | Hospitalist Progress Note ---
Date of Service November 16, 2021 Assessment & Plan (1) COVID-19: Plan: Testing positive to COVID 19 on 10/27/21 CXR mildly progressed multifocal bilateral airspace opacities compatible with viral pneumonia. oxygen supplement requirement increased since admission, on 15L [place], transitioned to high flow oxygen 90% FiO2 , now back on 15 L of nasal cannula CRP elevated to 24, improved to 15 When patient required high flow oxygen, increased Decadron to 10 mg twice daily x5 days, then 10mg daily x 5 days ( last dose will be on 11/17) Completed course of remdesivir did not meet criteria for baricitinib as patient was already admitted for more than 72 hours Incentive spirometry, Flutter valve, self Proning, Mucinex monitor renal and liver function On Coumadin, INR 2.7 today Clinically improves Fever Repeat chest x-ray:Interval increase in bilateral interstitial and alveolar opacities again characteristic of a viral type pneumonitis and Covid pneumonia. Afebrile x 3 days now Blood cultures: Negative so far Procalcitonin negative Completed the course of Cefepime plus doxycycline Monitor closely Diarrhea, Nausea/vomiting Present on admission with multiple episodes of diarrhea for more than 1 week resolved Hx DVT, Factor V Leiden Has mild edema of the left lower extremity, chronic per patient Doppler ultrasound done during this admission: nonocclusive thrombus present within the common femoral vein and the proximal to mid superficial femoral vein- chronic per Radiologist INR 2.7 Continue Coumadin 5mg today, may need alternating 7.5 and 5 mg Continue monitor PT/INR Dyslipidemia Will resume Atorvastatin DVT px on Coumadin Code status Full code (2) Nausea vomiting and diarrhea: Plan: per Dr. Pearl's notes with addendum including succeeding assessment and plan: Admission and Anticipated Discharge Date Admission Date: November 03, 2021 Subjective Pt was seen and examined for follow up of hypoxic respiratory failure due to COVID-19 pneumonia Lying in bed proning with no acute distress He said that he feels much better today, currently on 6L NC No cough, chest pain, palpitations, dizziness, nausea vomiting, abdominal pain Review of Systems Review of Systems: All systems reviewed & are unremarkable except as noted in Subjective Physical Exam Physical Exam: General- No acute distress Head- atraumatic Eyes- PERRL, EOMI, ENT- oropharynx clear Neck- supple, no JVD Lungs- diminished BS Heart- regular rhythm; no murmur Abdomen- normal bowel sounds, soft, nontender Extremities- no calf tenderness Neuro- alert, oriented x 3; PERRL, EOMI; no facial palsy; no dysarthria Skin- warm & dry Results & Data Results & Data ([facility]) Vital Signs (Past 12 Hours) Vital Signs Temp Pulse Pulse Resp BP Pulse Ox 11/16/21 19:11 36.5 C 102 H 18 99/63 L 92 11/16/21 15:46 36.3 C L 100 H 20 105/68 92 11/16/21 15:17 115 H 11/16/21 11:58 36.5 C 99 H 20 97/61 L 92
[2021-11-17] MEDS: ACETAMINOPHEN 325 MG TAB PO PRN ×4 (01:27→20:00)
[2021-11-17] MEDS: dexAMETHasone 10 MG in SYRINGE 0 ML IV SCH (07:46)
[2021-11-17] MEDS: guaiFENesin 600 MG TABCR PO SCH ×2 (07:46→20:00)
[2021-11-17] MEDS: oxyCODONE HCL IR 5 MG TAB (IMMEDIATE RELEASE) PO PRN (14:47)
[2021-11-17] MEDS: WARFARIN SOD 5 MG TAB PO SCH (16:33)
--- NOTE | 2021-11-17 21:22 | Hospitalist Progress Note ---
Date of Service November 17, 2021 Assessment & Plan (1) COVID-19: Plan: Testing positive to COVID 19 on 10/27/21 CXR mildly progressed multifocal bilateral airspace opacities compatible with viral pneumonia. oxygen supplement requirement increased since admission, on 15L [place], transitioned to high flow oxygen 90% FiO2 , now back on 15 L of nasal cannula CRP elevated to 24, improved to 15 When patient required high flow oxygen, increased Decadron to 10 mg twice daily x5 days, then 10mg daily x 5 days ( last dose will be on 11/17) Completed course of remdesivir did not meet criteria for baricitinib as patient was already admitted for more than 72 hours Incentive spirometry, Flutter valve, self Proning, Mucinex monitor renal and liver function On Coumadin, INR 2.7 today Clinically improves Fever Repeat chest x-ray:Interval increase in bilateral interstitial and alveolar opacities again characteristic of a viral type pneumonitis and Covid pneumonia. Afebrile x 3 days now Blood cultures: Negative so far Procalcitonin negative Completed the course of Cefepime plus doxycycline Monitor closely Diarrhea, Nausea/vomiting Present on admission with multiple episodes of diarrhea for more than 1 week resolved Hx DVT, Factor V Leiden Has mild edema of the left lower extremity, chronic per patient Doppler ultrasound done during this admission: nonocclusive thrombus present within the common femoral vein and the proximal to mid superficial femoral vein- chronic per Radiologist INR 2.7 Continue Coumadin 5mg today, may need alternating 7.5 and 5 mg Continue monitor PT/INR Dyslipidemia Will resume Atorvastatin DVT px on Coumadin Code status Full code (2) Nausea vomiting and diarrhea: Plan: per Dr. Pearl's notes with addendum including succeeding assessment and plan: Admission and Anticipated Discharge Date Admission Date: November 03, 2021 Subjective Pt was seen and examined for follow up of hypoxic respiratory failure due to COVID-19 pneumonia Lying in bed proning with no acute distress He said that he feels much better today Nurse said that when he tried to walk to the bathroom, he desaturated in the 70's denies any cough, chest pain, palpitations, dizziness, nausea vomiting, abdominal pain Review of Systems Review of Systems: All systems reviewed & are unremarkable except as noted in Subjective Physical Exam Physical Exam: General- No acute distress Head- atraumatic Eyes- PERRL, EOMI, ENT- oropharynx clear Neck- supple, no JVD Lungs- diminished BS Heart- regular rhythm; no murmur Abdomen- normal bowel sounds, soft, nontender Extremities- no calf tenderness Neuro- alert, oriented x 3; PERRL, EOMI; no facial palsy; no dysarthria Skin- warm & dry Results & Data Results & Data ([facility]) Vital Signs (Past 12 Hours) Vital Signs Temp Pulse Pulse Resp BP Pulse Ox 11/17/21 19:31 36.9 C 96 H 26 H 100/67 90 11/17/21 16:57 99 H 11/17/21 16:00 36.7 C 94 H 18 87/50 L 93 11/17/21 11:42 36.8 C 87 18 94/61 L 93 11/17/21 10:11 86 L
[2021-11-17] MEDS: MELATONIN 3 MG TAB PO PRN (22:40)
[2021-11-18] MEDS: ACETAMINOPHEN 325 MG TAB PO PRN (00:21)
[2021-11-18] MEDS: guaiFENesin 600 MG TABCR PO SCH ×2 (08:22→20:22)
[2021-11-18 10:36] LABS: INR 2.1 (0.9-1.1); Prothrombin Time 20.2 Seconds (9.0-12.0)
[2021-11-18 10:49] LABS: BUN Creatinine Ratio 32.4 (10-20); Calcium 8.4 mg/dl (8.5-10.1); Creatinine Clr Calc Pharmacy 141.6 ml/min; Est GFR (African American) 133.1 ml/min; Est GFR (Non-African American) 114.9 ml/min; Potassium 3.6 mmol/L (3.5-5.1)
[2021-11-18] MEDS: WARFARIN SOD 5 MG TAB PO SCH (16:31)
[2021-11-18] MEDS: MELATONIN 3 MG TAB PO PRN (20:22)
--- NOTE | 2021-11-18 22:38 | Hospitalist Progress Note ---
Date of Service November 18, 2021 Assessment & Plan (1) COVID-19: Plan: Testing positive to COVID 19 on 10/27/21 CXR mildly progressed multifocal bilateral airspace opacities compatible with viral pneumonia. oxygen supplement requirement increased since admission, on 15L [place], transitioned to high flow oxygen 90% FiO2 , now back on 15 L of nasal cannula CRP elevated to 24, improved to 15 Decadron was increased to 10 mg twice daily x5 days, then 10mg daily x 5 days ( last dose will be on 11/17) Completed course of remdesivir and dexamethasone did not meet criteria for baricitinib as patient was already admitted for more than 72 hours Continue incentive spirometry, Flutter valve, self Proning, Mucinex monitor renal and liver function On Coumadin, INR 2.1 today Continue oxygen supplement Clinically improves Fever Repeat chest x-ray:Interval increase in bilateral interstitial and alveolar opacities again characteristic of a viral type pneumonitis and Covid pneumonia. Afebrile x 3 days now Blood cultures: Negative so far Procalcitonin negative Completed the course of Cefepime plus doxycycline Monitor closely Diarrhea, Nausea/vomiting Present on admission with multiple episodes of diarrhea for more than 1 week resolved Hx DVT, Factor V Leiden Has mild edema of the left lower extremity, chronic per patient Doppler ultrasound done during this admission: nonocclusive thrombus present within the common femoral vein and the proximal to mid superficial femoral vein- chronic per Radiologist INR 2.1 Continue Coumadin 5mg today, may need alternating 7.5 and 5 mg Continue monitor PT/INR Dyslipidemia Will resume Atorvastatin DVT px on Coumadin Code status Full code Disposition We will discharge once medically stable (2) Nausea vomiting and diarrhea: Plan: per Dr. Pearl's notes with addendum including succeeding assessment and plan: Admission and Anticipated Discharge Date Admission Date: November 03, 2021 Subjective Pt was seen and examined for follow up of hypoxic respiratory failure due to COVID-19 pneumonia Lying in bed proning with no acute distress He said that he continue to feel better denies any cough, chest pain, palpitations, dizziness, nausea vomiting, abdominal pain Review of Systems Review of Systems: All systems reviewed & are unremarkable except as noted in Subjective Physical Exam Physical Exam: General- No acute distress Head- atraumatic Eyes- PERRL, EOMI, ENT- oropharynx clear Neck- supple, no JVD Lungs- diminished BS Heart- regular rhythm; no murmur Abdomen- normal bowel sounds, soft, nontender Extremities- no calf tenderness Neuro- alert, oriented x 3; PERRL, EOMI; no facial palsy; no dysarthria Skin- warm & dry Results & Data Results & Data ([facility]) Vital Signs (Past 12 Hours) Vital Signs Temp Pulse Pulse Resp BP Pulse Ox 11/18/21 19:35 37.7 C H 118 H 28 H 96/59 L 88 L 11/18/21 16:02 100 H 11/18/21 15:45 37.0 C 103 H 20 112/65 92 11/18/21 12:40 36.7 C 107 H 16 95/59 L 92
[2021-11-19] MEDS: guaiFENesin 600 MG TABCR PO SCH ×2 (07:32→21:28)
[2021-11-19 07:36] LABS: INR 1.7 (0.9-1.1); Prothrombin Time 16.4 Seconds (9.0-12.0)
[2021-11-19 08:06] LABS: BUN Creatinine Ratio 19.7 (10-20); Calcium 8.1 mg/dl (8.5-10.1); Creatinine Clr Calc Pharmacy 165.7 ml/min; Est GFR (Non-African American) 122.5 ml/min; Potassium 3.8 mmol/L (3.5-5.1)
--- NOTE | 2021-11-19 13:55 | Hospitalist Progress Note ---
Date of Service November 19, 2021 Assessment & Plan (1) COVID-19: Plan: Acute hypoxic respiratory failure due to COVID-19 pneumonia Tested positive to COVID 19 on 10/27/21 CXR mildly progressed multifocal bilateral airspace opacities compatible with viral pneumonia. oxygen supplement requirement increased since admission, on 15L NC, transitioned to high flow oxygen 90% FiO2 Decadron was increased to 10 mg twice daily x5 days, then 10mg daily x 5 days ( last dose will be on 11/17) Completed course of remdesivir and dexamethasone Did not meet criteria for baricitinib as patient was already admitted for more than 72 hours Acute worsening oxygen requirement. CT PE Did not show any PE but showed progression of bilateral opacities, small amount of pneumomediastinum and small bilateral pleural effusion. We will appreciate ladies underwear operator recommendation. Continue IV Lasix. Avoid positive pressure ventilation as much as possible. Respiratory therapist informed. Recheck procalcitonin Completed the course of Cefepime plus doxycycline Monitor closely Diarrhea, Nausea/vomiting Present on admission with multiple episodes of diarrhea for more than 1 week Resolved Hx DVT, Factor V Leiden Has mild edema of the left lower extremity, chronic per patient Doppler ultrasound done during this admission: nonocclusive thrombus present within the common femoral vein and the proximal to mid superficial femoral vein- chronic per Radiologist INR 1.7 today Continue Coumadin and monitor Continue monitor PT/INR Dyslipidemia Plan to resume Atorvastatin DVT px on Coumadin Code status Full code Disposition PCU (2) Nausea vomiting and diarrhea: Admission and Anticipated Discharge Date Admission Date: November 03, 2021 Subjective 56-year-old man with history of hypercoagulable state (factor V Leiden mutation, recurrent blood clots) on Coumadin, hyperlipidemia who presents with cough, nausea, vomiting diarrhea Being managed for acute hypoxic respiratory failure due to COVID-19 pneumonia. Patient seen and examined Developed acute worsening oxygen requirements yet today with tachycardia. Patient reporting shortness of breath, persistent cough. Denied palpitations, chest pain, nausea vomiting. Denied abdominal pain, dysuria, frequency, urgency Physical Exam Constitutional: + acute distress (Conversational dyspnea) Eyes: PERRL, conjunctivae normal, anicteric sclerae ENMT: external ear and nose normal, oropharynx normal Respiratory: Diminished breath sounds globally. Cardiovascular: Rate/Rhythm: regular rate and + tachycardic S1-S2 Gastrointestinal (Abdomen): normal bowel sounds, soft, nontender, no hepatosplenomegaly Musculoskeletal: no cyanosis or clubbing, extremities motor strength 5/5 Neurologic: PERRL, EOMI, accommodation nl, no face palsy, no dysarthria Psychiatric: A+Ox3, euthymic affect Results & Data Results & Data ([facility]) Vital Signs (Past 12 Hours) Vital Signs Temp Pulse Pulse Resp BP BP Pulse Ox 11/19/21 12:46 131 H 89 L 11/19/21 11:00 36.4 C L 116 H 22 96/54 L 91 11/19/21 10:30 91 11/19/21 08:00 49 L 11/19/21 07:00 36.5 C 100 H 22 99/63 L 95 11/19/21 03:11 36.5 C 111 H 20 103/67 92 Laboratory Results Abnormal lab results 11/19/21 11/19/21 Range/Units 06:47 06:47 PT 16.4 H (9.0-12.0) Seconds INR 1.7 H (0.9-1.1) Sodium 131 L (136-145) mmol/L Chloride 96 L (98-107) mmol/L Creatinine 0.47 L (0.6-1.4) mg/dl Glucose 109 H (70-99) mg/dl Calcium 8.1 L (8.5-10.1) mg/dl
--- NOTE | 2021-11-19 14:13 | XRay Report ---
XR chest 1V portable CLINICAL HISTORY: Worsening hypoxia COMPARISON STUDY: Chest radiograph November 08, 2021. FINDINGS: There has been significant progression of extensive bilateral airspace opacities since ches t radiograph of November 08, 2021. No pneumothorax or pleural effusion is present. There is no eviden ce for pulmonary edema. IMPRESSION: Significant progression of extensive bilateral airspace opacities consistent with viral pneumonia. ACT 112: Negative or not required by law. Electronically signed by: Jesus Roberts M.D. 11/19/2021 2:12 PM
[2021-11-19] MEDS ORDERED: OPTIRAY 320 125ml IV ONE (14:30)
--- NOTE | 2021-11-19 14:57 | CT Scan Report ---
CT ANGIOGRAPHY OF THE CHEST, PULMONARY EMBOLUS PROTOCOL CLINICAL HISTORY: Rule out PE in worsening hypoxia. Factor V leiden COMPARISON STUDY: Chest radiograph November 08, 2021 and November 19, 2021. TECHNIQUE: Following IV administration of 120 mL of Optiray, helical axial images of the chest were o btained utilizing the pulmonary embolus protocol. Maximal intensity projections and sagittal and cor onal reformats were viewed on an independent 3D workstation. IV contrast was administered without co mplication. Automated exposure control was utilized for the study. A dose lowering technique was ut ilized adhering to the principles of ALARA. CT DOSE: 459.48 mGycm FINDINGS: This exam is significantly compromised by respiratory motion. No central pulmonary emboli are identified. The remainder of the pulmonary arteries are suboptimally assessed on this examination . There is no thoracic aortic dissection. No pericardial effusion is noted. The azygos and hemiazygos veins are dilated. There are small bilateral pleural effusions. No pneumothorax is present. A small amount of pneumomediastinum is noted within the anterior mediastinum. Extensive multifocal consolidat ion within the lungs is noted. This has significantly progressed since chest radiograph of October 292020. Visualized portions of the upper abdomen are unremarkable. IMPRESSION: 1. Exam significantly compromised by respiratory motion artifact. No central pulmonary emboli. Remain keon of pulmonary arteries suboptimally assessed on this exam. 2. Progression of extensive bilateral airspace opacities since chest radiograph of November 08, 2021 consistent with viral pneumonia. 3. Small amount of pneumomediastinum. No pneumothorax. 4. Small bilateral pleural effusions. ACT 112: Negative or not required by law. Electronically signed by: Jesus Roberts M.D. 11/19/2021 2:56 PM
[2021-11-19] MEDS ORDERED: BENZONATATE 100 MG CAPSULE PO PRN (16:26)
[2021-11-19] MEDS ORDERED: FUROSEMIDE 40 MG/4 ML VIAL IV ONE (16:30)
[2021-11-19] MEDS: WARFARIN SOD 5 MG TAB PO SCH (16:32)
--- NOTE | 2021-11-19 16:32 | Pulmonary Consultation ---
Date of Consultation November 19, 2021 Assessment & Plan (1) Acute hypoxemic respiratory failure due to COVID-19: (2) 2019 novel coronavirus-infected pneumonia (NCIP): (3) Factor V Leiden carrier: (4) Pneumomediastinum: CT chest 11/19/2021 personally reviewed: Diffuse patchy opacities appreciated bilaterally upper and lower lobes I do think there is a component of fibrosis to certain degree Bilateral pleural effusion small No significant mediastinal lymphadenopathy --Acute hypoxic respiratory failure Secondary to multilobar COVID-19 pneumonia COVID-19 + 11/03/2021 No central PE on CTA 11/19/2021 Patient dated dexamethasone, remdesivir. He also finished 7 days of doxycycline and cefepime I do not think additional dosing of steroids is indicated. --Pneumomediastinum Small Would recommend to avoid positive pressure ventilation if possible Try high flow the patient is able to sustain on high flow then that should be okay If it is absolutely necessary to have BiPAP/CPAP then it is okay to continue with it Plan: Follow-up procalcitonin, 2D echo with bubble study BNP as well as CRP Avoid flutter valve use. 40 mg of Lasix was already given to the patient. I do think there is a component of fibrosis on the latest CT chest Continue with aggressive diuresis to keep the patient negative balance. Patient is -10 L since coming to the hospital Case was discussed with Dr. Peralta Please note the above document was generated using voice recognition software. It may contain grammatical, syntax or spelling errors.Any formal questions or concerns about the content, text or information contained within the body of this dictation should be directly addressed to the provider for clarification. History of Present Illness Attending Physician: Reva Peralta MD History of Present Illness 56-year-old male was admitted to the hospital 11/03/2021 for COVID-19 pneumonia Past medical history: Factor V Leiden mutation on is on Coumadin, dyslipidemia Patient is not vaccinated. Patient has completed 10 days of dexamethasone, remdesivir. He also completed doxycycline as above cefepime. Pulmonary were consulted as patient had worsening in oxygen requirement which led to CT chest. Case was discussed personally with me by Dr. Peralta Patient complains of cough but is not bringing up any phlegm. Denies any CP, No PH[place], No N or V. Did cough multiple times while starting to talk. Denies any hemoptysis. Patient is unsure about getting intubated if need be. Social history: Non-smoker, social alcohol Allergies Allergy/AdvReac Type Severity Reaction Status Date / Time Sulfa (Sulfonamide Allergy Intermediate "tongue Verified 11/03/21 19:25 Antibiotics) turned black" Home Medications Medication Instructions Recorded Confirmed Type atorvastatin 20 mg tablet 20 mg PO DAILY 11/02/21 11/03/21 History ondansetron 4 mg disintegrating 4 mg PO Q6H PRN #20 tab 11/02/21 11/03/21 Rx tablet warfarin 1 mg tablet 2 mg PO [id number] 11/02/21 11/03/21 History warfarin 10 mg tablet 10 mg PO DAILY 11/02/21 11/03/21 History Patient History Medical History Dyslipidemia Factor V Leiden carrier Warfarin History of DVT (deep vein thrombosis) Surgical History No history of previous surgery Social History Smoking Status: Never smoker Hx Alcohol Use: No Hx Substance Use: No Preferred Language: Amharic Communication Ability: Effective Apartment Maintenance Worker Required: No Beliefs That Will Affect Care: Anabaptist Anabaptist Beliefs: no blood products marital status: Current Living Situation: Family current occupational status: employed Other Information That Helps Us Care for You: No Feels Safe at Home: Yes Safety Concerns: Feels Safe At This Time Assistive Devices: Oxygen - Continuous Review of Systems Review of Systems: All systems reviewed & are unremarkable except as noted in HPI & below Physical Exam Physical Exam: Constitutional: No acute distress HEENT: EOMI, PERRLA, malar rash Respiratory system: Decreased air entry bilaterally, no wheeze, rhonchi, positive crackles bilaterally CVS: S1-S2 positive, no murmurs or gallops, tachycardia Abdomen: Soft, nontender, nondistended, positive bowel sounds x4 Extremities: +2 pulses bilaterally radialis/ dorsalis pedis, no cyanosis, +1 edema LLE Neuro: Awake alert oriented x3 Psych: Normal mood and affect G/U: No Vaughn Skin: no rashes, warm and dry Lymphatic: no cervical or axillary lymphadenopathy Results & Data Results & Data ([facility]) Vital Signs (Past 12 Hours) Vital Signs Temp Pulse Pulse Resp BP Pulse Ox 11/19/21 15:53 37.5 C 118 H 20 101/68 96 11/19/21 14:01 135 H 40 H 95 11/19/21 12:46 131 H 89 L 11/19/21 11:00 36.4 C L 116 H 22 96/54 L 91 11/19/21 10:30 91 11/19/21 08:00 49 L 11/19/21 07:00 36.5 C 100 H 22 99/63 L 95 11/15/21 01:22 11/19/21 06:47 PG Care Time/CCT Total # of Minutes Spent Total Time Spent with Patient: Total time spent is greater than 50% in coordination of care (as documented) at patient's floor/unit and/or counseling patient: [place] [address] Inpt Consult Level 5 Patient Type New Diagnoses Acute hypoxemic respiratory failure due to COVID-19 U07.1; J96.01 2019 novel coronavirus-infected pneumonia (NCIP) U07.1; J12.82 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
[2021-11-19 16:50] LABS: C Reactive Protein 18.5 mg/dl (0-0.29)
[2021-11-19] MEDS: MELATONIN 3 MG TAB PO PRN (21:28)
[2021-11-20] MEDS ORDERED: diphenhydrAMINE HCL 25 MG/10 ML UDC PO ONE (00:06)
[2021-11-20 07:09] LABS: Hematocrit (blood only) 39.9 % (42-52); Hemoglobin 13.5 g/dL (14.0-18.0); Mean Corpuscular Hemoglobin 29.7 pg (25-34); Mean Corpuscular Hgb Conc 33.8 g/dL (32-36); Mean Corpuscular Volume 87.9 fL (80-100); Mean Platelet Volume 9.1 fL (7.4-10.4); Platelet Count 190 K/uL (130-400); RDW Standard Deviation 45.2 fL (36.4-46.3); Red Blood Count 4.54 M/uL (4.7-6.1); White Blood Count 15.77 K/uL (4.8-10.8)
[2021-11-20 07:17] LABS: INR 1.6 (0.9-1.1); Prothrombin Time 16.1 Seconds (9.0-12.0)
[2021-11-20 07:37] LABS: BUN Creatinine Ratio 19.6 (10-20); Calcium 8.7 mg/dl (8.5-10.1); Creatinine Clr Calc Pharmacy 136.7 ml/min; Est GFR (African American) 131.2 ml/min; Est GFR (Non-African American) 113.2 ml/min; Magnesium 2.1 mg/dl (1.8-2.4); Potassium 3.7 mmol/L (3.5-5.1)
[2021-11-20 07:48] LABS: C Reactive Protein 34.6 mg/dl (0-0.29)
[2021-11-20] MEDS: guaiFENesin 600 MG TABCR PO SCH (08:12)
[2021-11-20] MEDS: AZITHROMYCIN 500 MG in DEXTROSE 5% 250 ML IV SCH (08:48)
[2021-11-20] MEDS ORDERED: FUROSEMIDE 40 MG/4 ML VIAL IV SCH (09:00)
[2021-11-20] MEDS ORDERED: OXYMETAZOLINE 0.05% 30 ML BTL NAE PRN (12:06)
--- NOTE | 2021-11-20 12:18 | Pulmonology Progress Note ---
Date of Service November 20, 2021 Assessment & Plan (1) Acute hypoxemic respiratory failure due to COVID-19: (2) 2019 novel coronavirus-infected pneumonia (NCIP): (3) Factor V Leiden carrier: (4) Pneumomediastinum: Plan: CT chest 11/19/2021 personally reviewed: Diffuse patchy opacities appreciated bilaterally upper and lower lobes I do think there is a component of fibrosis to certain degree Bilateral pleural effusion small No significant mediastinal lymphadenopathy --Acute hypoxic respiratory failure Secondary to multilobar COVID-19 pneumonia COVID-19 + 11/03/2021 No central PE on CTA 11/19/2021 CRP 34.6 Procalcitonin 0.23 NT BNP 501 Patient dated dexamethasone, remdesivir. He also finished 7 days of doxycycline and cefepime I do not think additional dosing of steroids is indicated. --Pneumomediastinum Small Would recommend to avoid positive pressure ventilation if possible Try high flow the patient is able to sustain on high flow then that should be okay If it is absolutely necessary to have BiPAP/CPAP then it is okay to continue with it Avoid flutter valve. Plan: I will start the patient on Afrin nasal spray as he is complaining of nasal congestion Patient is requiring 100% high flow 35 L. He is having significant coughing fits I will give the patient guaifenesin with codeine [id number] as I do not want the patient to cough while he is on CPAP this will make his pneumomediastinum worse Patient is CRP is trending up. Antibiotics has been started I did not think there is any use of steroids right now given that he has com pleted the course already in the past. Patient is critical. There is high likelihood that he might get intubated in the recent future. I did try to discuss whether he will be okay to have the intubation if need be in future. He is unsure but he will think about it and let us know Case was discussed with Dr. Peralta and RN I have personally spent 35 minutes of critical care time in the direct management of this patient. This is a life/limb threatening event. This includes time spent evaluating patient, direct bedside care, chart review, placing orders, interpretation of diagnostic studies, discussion with consultants, patient, and family members, as well as other required patient management activities. This time is exclusive of all separately billable procedures, and teaching time and separate from and in addition to any other critical care service time. Please note the above document was generated using voice recognition software. It may contain grammatical, syntax or spelling errors. Admission and Anticipated Discharge Date Admission Date: November 03, 2021 Subjective Patient seen and examined at bedside. He is in mild respiratory distress. Respiratory in mid to high 20s He was saturating 90-91% with heart rate of 110s on 100% high flow, 35 L He denies any chest pain, no headache, no nausea, no vomiting He did have significant coughing whenever he was talking. Review of Systems Review of Systems: All systems reviewed & are unremarkable except as noted in Subjective Physical Exam Physical Exam: Constitutional: No acute distress HEENT: EOMI, PERRLA, malar rash Respiratory system: Decreased air entry bilaterally, no wheeze, rhonchi, positive crackles bilaterally CVS: S1-S2 positive, no murmurs or gallops, tachycardia Abdomen: Soft, nontender, nondistended, positive bowel sounds x4 Extremities: +2 pulses bilaterally radialis/ dorsalis pedis, no cyanosis, +1 edema LLE Neuro: Awake alert oriented x3 Psych: Normal mood and affect G/U: No Vaughn Skin: no rashes, warm and dry Lymphatic: no cervical or axillary lymphadenopathy Results & Data Results & Data ([facility]) Vital Signs (Past 12 Hours) Vital Signs Temp Pulse Resp BP BP Pulse Ox 11/20/21 11:26 117 H 26 H 89 L 11/20/21 11:00 36.7 C 121 H 24 105/65 11/20/21 07:30 112 H 22 89 L 11/20/21 06:52 36.9 C 115 H 22 102/62 90 11/20/21 03:11 37.5 C 121 H 22 102/68 92 11/20/21 03:10 108 H 24 94 11/20/21 06:35 11/20/21 06:35 PG Care Time/CCT Total # of Minutes Spent Total Time Spent with Patient: Total time spent is greater than 50% in coordination of care (as documented) at patient's floor/unit and/or counseling patient: Coding Level of Care Code Critical Care 1st 30-74 mins Diagnoses Acute hypoxemic respiratory failure due to COVID-19 U07.1; J96.01 2019 novel coronavirus-infected pneumonia (NCIP) U07.1; J12.82 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 Time Spent (min) 35
--- NOTE | 2021-11-20 13:09 | Hospitalist Progress Note ---
Date of Service November 20, 2021 Assessment & Plan (1) COVID-19: Plan: Acute hypoxic respiratory failure due to COVID-19 pneumonia Tested positive to COVID 19 on 10/27/21 Decadron was increased to 10 mg twice daily x5 days, then 10mg daily x 5 days ( last dose will be on 11/17) Completed course of remdesivir and dexamethasone Did not meet criteria for baricitinib as patient was already admitted for more than 72 hours Acute worsening oxygen requirement. CT PE Did not show any PE but showed progression of bilateral opacities, small amount of pneumomediastinum and small bilateral pleural effusion. Multi Punch Operator on board Patient was started on azithromycin. Had previously completed cefepime and doxycycline. Shortly after initial evaluation., Patient continues to get worse. Called and updated her Discussed with patient about intubation. Patient intubated by pharmaceutical engineer. Transfer to ICU. I discussed with pharmaceutical engineer who recommended contacting [place] about possible ECMO I called transfer center and spoke with Dr. Samson. We discussed patient. Unfortunately, patient is not an ECMO candidate Will continue care in our ICU Hx DVT, Factor V Leiden Has mild edema of the left lower extremity, chronic per patient Doppler ultrasound done during this admission: nonocclusive thrombus present within the common femoral vein and the proximal to mid superficial femoral vein- chronic per Radiologist INR 1.6 today Coumadin dose increased Continue monitor PT/INR Dyslipidemia Plan to resume Atorvastatin DVT px on Coumadin Code status Full code Disposition ICU (2) Nausea vomiting and diarrhea: Admission and Anticipated Discharge Date Admission Date: November 03, 2021 Subjective 56-year-old man with history of hypercoagulable state (factor V Leiden mutation, recurrent blood clots) on Coumadin, hyperlipidemia who presents with cough, nausea, vomiting diarrhea Being managed for acute hypoxic respiratory failure due to COVID-[address] PE yesterday did not show PE but showed small pneumomediastinum as well as Progression of bilateral opacities. Patient was seen earlier today. Patient is having worsening oxygen requirement and increasing respiratory distress. He reported persistent coughing, worsening shortness of breath. Denied any chest pain. Denied palpitations Has been tachycardic. Reports weakness some anxiety related to his shortness of breath. Reports poor appetite Physical Exam Constitutional: + acute distress (Respiratory distress) Eyes: PERRL, conjunctivae normal, anicteric sclerae ENMT: external ear and nose normal, oropharynx normal Respiratory: In respiratory distress, diminished breath sounds with scattered crackles Cardiovascular: Rate/Rhythm: regular rate and + tachycardic S1-S2 Gastrointestinal (Abdomen): normal bowel sounds, soft, nontender, no hepatosplenomegaly Musculoskeletal: no cyanosis or clubbing, extremities motor strength 5/5 Neurologic: PERRL, EOMI, accommodation nl, no face palsy, no dysarthria Psychiatric: A+Ox3, euthymic affect Results & Data Results & Data ([facility]) Vital Signs (Past 12 Hours) Vital Signs Temp Pulse Resp BP BP Pulse Ox 11/20/21 11:26 117 H 26 H 89 L 11/20/21 11:00 36.7 C 121 H 24 105/65 11/20/21 07:30 112 H 22 89 L 11/20/21 06:52 36.9 C 115 H 22 102/62 90 11/20/21 03:11 37.5 C 121 H 22 102/68 92 11/20/21 03:10 108 H 24 94 Laboratory Results Abnormal lab results 11/20/21 11/20/21 11/20/21 Range/Units 06:35 06:35 06:35 WBC 15.77 H (4.8-10.8) K/uL RBC 4.54 L (4.7-6.1) M/uL Hgb 13.5 L (14.0-18.0) g/dL Hct 39.9 L (42-52) % PT 16.1 H (9.0-12.0) Seconds INR 1.6 H (0.9-1.1) Sodium 124 L D (136-145) mmol/L Chloride 88 L (98-107) mmol/L Creatinine 0.57 L (0.6-1.4) mg/dl Glucose 118 H (70-99) mg/dl POC Glucose (70-99) mg/dl C-Reactive Protein 34.60 H (0-0.29) mg/dl 11/20/21 Range/Units 13:57 WBC (4.8-10.8) K/uL RBC (4.7-6.1) M/uL Hgb (14.0-18.0) g/dL Hct (42-52) % PT (9.0-12.0) Seconds INR (0.9-1.1) Sodium (136-145) mmol/L Chloride (98-107) mmol/L Creatinine (0.6-1.4) mg/dl Glucose (70-99) mg/dl POC Glucose 102 H (70-99) mg/dl C-Reactive Protein (0-0.29) mg/dl
[2021-11-20] MEDS ORDERED: STAT IV Infusion **Titration per Protocol STA ×3 (14:40→16:51)
[2021-11-20] MEDS ORDERED: CISATRACURIUM BESYLATE IV SOLN 2 MG/ML 10 ML VIAL IV STA (14:40)
[2021-11-20] MEDS ORDERED: PROPOFOL BOLUS FROM BAG IV PRN (14:40)
[2021-11-20] MEDS ORDERED: CISATRACURIUM BOLUS FROM BAG IV ONE (15:00)
[2021-11-20] MEDS ORDERED: fentaNYL citrate 100 MCG/2 ML VIAL ONE (15:09)
[2021-11-20] MEDS ORDERED: ROCURONIUM BROMIDE 10 MG/ML 5 ML VIAL IV ONE (15:23)
[2021-11-20] MEDS: propofoL 1,000 MG/100 ML VIAL IV SCH ×3 (15:45→23:28)
--- NOTE | 2021-11-20 15:54 | XRay Report ---
XR chest 1V portable CLINICAL HISTORY: line insertion COMPARISON STUDY: Chest radiograph and chest CT November 19, 2021. FINDINGS: Tip of endotracheal tube is 2.5 cm above the james. Tip of nasogastric tube is within the body of the stomach. Tip of left internal jugular central line projects over the proximal SVC. There is no pneumothorax. Small bilateral pleural effusions are again noted. Extensive bilateral airspace o pacities have slightly progressed. IMPRESSION: 1. Satisfactory positioning of lines and tubes. No pneumothorax. 2. Extensive bilateral airspace opacities consistent with viral pneumonia, slightly increased since p rior exam. ACT 112: Negative or not required by law. Electronically signed by: Jesus Roberts M.D. 11/20/2021 3:53 PM
--- NOTE | 2021-11-20 15:59 | XRay Report ---
KUB CLINICAL HISTORY: OGT placement COMPARISON STUDY: Abdominal series November 02, 2021. FINDINGS: Extensive bilateral airspace opacities within the lungs are noted. Satisfactory positioning of endotracheal tube is noted. Left internal jugular central line is in place. Tip of nasogastric tu be is within the body of the stomach. IMPRESSION: Tip of nasogastric tube within the body of the stomach. ACT 112: Negative or not required by law. Electronically signed by: Jesus Roberts M.D. 11/20/2021 3:58 PM
[2021-11-20] MEDS ORDERED: WARFARIN SOD 7.5 MG TAB PO SCH (16:00)
[2021-11-20] MEDS: fentaNYL citrate 2,500 MCG/250 ML BAG IV SCH (16:15)
[2021-11-20] MEDS: CISATRACURIUM BESYLATE 40 MG in 0.9 % SODIUM CHLORIDE 80 ML IV SCH ×3 (16:45→23:27)
[2021-11-20] MEDS: NOREPINEPHRINE/D5W 8 MG/508 ML BAG IV SCH (17:00)
[2021-11-20] MEDS: guaiFENesin/CODEINE 100MG/10MG 5ML UDC PO SCH ×3 (17:48→23:27)
--- NOTE | 2021-11-20 18:08 | Procedure Note ---
Procedure Note Date of Service November 20, 2021 Note ARTERIAL LINE PROCEDURE NOTE: Procedure: Arterial Line Placement Attending: Dr. Sabino Puente MD Indication: Monitoring on Pressors Anesthesia: General anesthesia Emergent consent was applied A time-out was completed verifying correct patient, procedure, site, positioning, and implant(s) or special equipment if applicable. Allens test was performed to ensure adequate perfusion. Patients right wrist was prepped and draped in the usual sterile fashion. Ultrasound guidance was used to aid needle placement. A 20g Arrow arterial line was introduced into the right radial artery. Catheter was threaded, and the needle was removed with appropriate pulsatile blood return. Good waveform was observed on the monitor. The patient tolerated the procedure well. Confirmation of placement with ultrasound. Images saved to medical record. Complications: None Blood Loss: None Coding CPT Codes Tubes, Drains, and Vasc Access - Tubes, Drains, and Vasc Access: [id number] Insertion Catheter, Artery ([id number]) Tubes, Drains, and Vasc Access - Tubes, Drains, and Vasc Access: [id number] Ultrasound Guidance For Vascular ([id number]) [facility] Procedure Codes (Charges) Tubes, Drains, and Vasc Access Procedure 1: Tubes, Drains, and Vasc Access: [id number] Insertion Catheter, Artery Procedure 2: Tubes, Drains, and Vasc Access: [id number] Ultrasound Guidance For Vascular
--- NOTE | 2021-11-20 18:09 | Procedure Note ---
Procedure Note Date of Service November 20, 2021 Note Procedure: Inserting ultrasound-guided central fryline attendant: Dr. Sabino Puente Indication: ARDS Consent: Emergent Anesthesia: 1% lidocaine without epinephrine local. Procedure: Consent was verified and timeout performed. Appropriate imaging studies were reviewed prior to the procedure. Under aseptic and sterile condition, left IJ vein was accessed under direct ultrasound guidance. Guidewire was confirmed to be within the lumen of vein with the help of ultrasound. Catheter was introduced via Seldinger technique. Guide a wire was removed. Good non-pulsatile blood flow was appreciated from all the ports. The catheter was placed at 24 cm and sut[address] in place. BioPatch was applied to the catheter and a sterile Tegaderm dressing was applied over the catheter with careful attention to sterility. Lung sliding was appreciated post procedure with the help ultrasound. Chest x-ray to follow Patient tolerated the procedure well. Blood loss: Less than 2 cc Complications: None Coding CPT Codes Tubes, Drains, and Vasc Access - Tubes, Drains, and Vasc Access: [id number] Ultrasound Guidance For Vascular ([id number]) Tubes, Drains, and Vasc Access - Tubes, Drains, and Vasc Access: [id number] Place catheter in vein superior or inferior vena cava ([id number]) [facility] [place] Procedure Codes (Charges) Tubes, Drains, and Vasc Access Procedure 1: Tubes, Drains, and Vasc Access: [id number] Place catheter in vein superior or inferior vena cava Procedure 2: Tubes, Drains, and Vasc Access: [id number] Ultrasound Guidance For Vascular
--- NOTE | 2021-11-20 18:10 | Procedure Note ---
Procedure Note Date of Service November 20, 2021 Note INTUBATION PROCEDURE NOTE: Attending: Dr Sabino Puente MD Patient was evaluated and plan to intubate was made for ventilatory failure. Sedative agent used: 100mg lidocaine, 20 mg etomidate, 60 mg propofol Paralysis agent used: 50 mg rocuronium []Emergent consent was implied given patients rapidly declining clinical status and need for airway protection. The patient was prepared in the appropriate fashion. The patient was easily pre-oxygenated by using [id number] ventilation. With help of CMAC grade 2 vocal cords were visualized and 7.5 Syriac ETT was introduced on first attempt to 26 cm at the lip. The stylette was removed and balloon was inflated with 10mL of air. Appropriate Colorimetric change was appreciated for at least 10 breaths. Bilateral chest rise and breath sounds were appreciated without air sounds in the epigastrium. Patient tolerated the procedure well and there were no immediate complications. Chest Xray to follow for confirming placement. Coding CPT Codes Resuscitation - Resuscitation: 24753 Endotracheal Intubation, emergency ([id number]) [facility] Procedure Codes (Charges) Resuscitation Resuscitation: 65954 Endotracheal Intubation, emergency
[2021-11-20] MEDS ORDERED: Heparin IV Adult Wt-Based Low-Dose *NO* Bolus Protocol IV ONE (18:15)
--- NOTE | 2021-11-20 18:15 | Communication Note ---
Date of Service: November 20, 2021 Critical care addendum: Was called again as the patient was significantly deteriorating while on CPAP of 10. He was saturating only 80% at that time I have discussed this with the patient before that if he is there is any significant worsening he will be needing intubation He was awaiting to intubation at that time I discussed the case with hospitalist. We will intubate the patient Overall prognosis of the patient is guarded given that he has had Covid for very long time Antibiotic is already been started I am going to start the patient on late DexaARDS protocol. Protonix p.o. twice daily We will prone the patient later today. Isrrael was called for possibility of a call back to he was not a candidate unfortunately. Overall prognosis is very poor. was updated by hospitalist. I have personally spent additional 61 minutes of critical care time in the direct management of this patient. This is a life/limb threatening event. This includes time spent evaluating patient, direct bedside care, chart review, placing orders, interpretation of diagnostic studies, discussion with consultants, patient, and family members, as well as other required patient management activities. This time is exclusive of all separately billable procedures, and teaching time and separate from and in addition to any other critical care service time. Please note the above document was generated using voice recognition software. It may contain grammatical, syntax or spelling errors. Coding Level of Care Code Critical Care jimbo myrick'rome 30 min Time Spent (min) 61
[2021-11-20] MEDS: ARTIFICIAL TEARS OP OINT 3.5 GM TUBE OP SCH ×3 (18:21→23:27)
--- NOTE | 2021-11-20 18:25 | XCELERA ---
[id number]
[2021-11-20] MEDS ORDERED: ACETAMINOPHEN 1,000 MG/100 ML VIAL IV PRN (18:43)
[2021-11-20] MEDS: HEPARIN SODIUM/DEXTROSE 25,000 UNITS/500 ML BAG IV SCH (19:06)
[2021-11-20] MEDS: dexAMETHasone 20 MG in SODIUM CHLORIDE 0.9% 50 ML IV SCH (19:29)
[2021-11-20] MEDS: PANTOprazole 40 MG in SYRINGE 0 ML IV SCH (20:25)
--- NOTE | 2021-11-21 03:34 | Communication Note ---
Date of Service: November 21, 2021 I participated in pronation of the patient at 0300. Patient to be prolonged at least 16 hours Coding Level of Care Code None
[2021-11-21] MEDS: guaiFENesin/CODEINE 100MG/10MG 5ML UDC PO SCH ×2 (04:10→07:19)
[2021-11-21] MEDS: NOREPINEPHRINE/D5W 8 MG/508 ML BAG IV SCH ×2 (04:13→16:05)
[2021-11-21] MEDS: CISATRACURIUM BESYLATE 40 MG in 0.9 % SODIUM CHLORIDE 80 ML IV SCH ×6 (04:13→20:42)
[2021-11-21] MEDS: propofoL 1,000 MG/100 ML VIAL IV SCH ×6 (04:14→20:41)
[2021-11-21 05:34] LABS: iSTAT Art Bld Gas pCO2 Correct 56 mmHg (35-46); iSTAT Art Bld Gas pH Corrected 7.324 (7.35-7.45); iSTAT Arterial Blood Gas HCO3 29 meg/L (19-24); iSTAT Arterial Blood Gas pCO2 57 mmHg (35-46); iSTAT Arterial Blood Gas pH 7.32 (7.35-7.45); iSTAT Arterial Blood Gas pO2 71 mmHg (80-95); iSTAT Arterial Blood Gas pO2 C 69; iSTAT Carbon Dioxide 31 mmol/L (24-31); iSTAT FiO2 100 %; iSTAT Hematocrit 44 % (42-52); iSTAT Potassium 3.7 mmol/L (3.3-5.0); iSTAT Site Art Line; iSTAT Sodium 121 mmol/L (135-144)
[2021-11-21] MEDS: ARTIFICIAL TEARS OP OINT 3.5 GM TUBE OP SCH ×6 (06:26→23:29)
[2021-11-21 06:28] LABS: INR 1.5 (0.9-1.1); Partial Thromboplastin Ratio 1.4; Partial Thromboplastin Time 36.3 Seconds (21.0-31.0); Prothrombin Time 14.3 Seconds (9.0-12.0)
[2021-11-21 06:43] LABS: BUN Creatinine Ratio 14.1 (10-20); Creatinine Clr Calc Pharmacy 50.3 ml/min; Est GFR (African American) 56.4 ml/min; Est GFR (Non-African American) 48.6 ml/min; Potassium 3.6 mmol/L (3.5-5.1)
[2021-11-21] MEDS: HEPARIN SODIUM/DEXTROSE 25,000 UNITS/500 ML BAG IV SCH ×2 (06:45→16:04)
[2021-11-21 06:58] LABS: Hematocrit (blood only) 40.8 % (42-52); Hemoglobin 14.2 g/dL (14.0-18.0); Mean Corpuscular Hemoglobin 30.2 pg (25-34); Mean Corpuscular Hgb Conc 34.8 g/dL (32-36); Mean Corpuscular Volume 86.8 fL (80-100); Mean Platelet Volume 9.2 fL (7.4-10.4); Platelet Count 262 K/uL (130-400); RDW Coefficient of Variation 14.1 % (11.5-14.5); RDW Standard Deviation 44.7 fL (36.4-46.3); White Blood Count 27.64 K/uL (4.8-10.8)
[2021-11-21] MEDS ORDERED: HEPARIN SOD (PORCINE) 1000 UNIT/ML IV ONE (07:00)
--- NOTE | 2021-11-21 07:00 | Electrocardiogram Report ---
Test Reason : Blood Pressure : / mmHG Vent. Rate : 128 BPM Atrial Rate : 128 BPM P-R Int : 156 ms QRS Dur : 084 ms QT Int : 294 ms P-R-T Axes : 000 212 147 degrees QTc Int : 429 ms Poor data quality, interpretation may be adversely affected Sinus tachycardia Right superior axis deviation Nonspecific ST and T wave abnormality Abnormal ECG No previous ECGs available Confirmed by Armando Norton ([id number]) on 11/21/2021 7:00:06 AM Referred By: REFERRED SELF Confirmed By:Armando Norton
[2021-11-21] MEDS: AZITHROMYCIN 500 MG in DEXTROSE 5% 250 ML IV SCH (08:33)
[2021-11-21] MEDS ORDERED: SODIUM CHLORIDE 3 % 500 ML IV SCH (08:45)
[2021-11-21] MEDS: PANTOprazole 40 MG in SYRINGE 0 ML IV SCH ×2 (09:59→20:42)
[2021-11-21] MEDS: INSULIN ASPART PER UNIT SC SCH ×4 (10:30→20:42)
--- NOTE | 2021-11-21 11:45 | Hospitalist Progress Note ---
Date of Service November 21, 2021 Assessment & Plan (1) COVID-19: Plan: Acute hypoxic respiratory failure due to COVID-19 pneumonia Tested positive to COVID 19 on 10/27/21 Decadron was increased to 10 mg twice daily x5 days, then 10mg daily x 5 days ( last dose will be on 11/17) Completed course of remdesivir and dexamethasone Did not meet criteria for baricitinib as patient was already admitted for more than 72 hours Acute worsening oxygen requirement. CT PE did not show any PE but showed progression of bilateral opacities, small amount of pneumomediastinum and small bilateral pleural effusion. Currently on azithromycin. Had previously completed cefepime and doxycycline. Currently intubated. Intubated on 11/20/21 MRSA swab On 11/20/21, I discussed with claim professional who recommended contacting [place] about possible ECMO I called transfer center and spoke with Dr. Samson. We discussed patient. Unfortunately, patient is not an ECMO candidate Will continue care in our ICU Acute Hyponatremia FRANDY Has received 3% saline Monitor BMP. Psychiatric Tech aware Hx DVT, Factor V Leiden Has mild edema of the left lower extremity, chronic per patient Doppler ultrasound done during this admission: nonocclusive thrombus present within the common femoral vein and the proximal to mid superficial femoral vein- chronic per Radiologist Coumadin on hold Currently on heparin drip Dyslipidemia Plan to resume Atorvastatin DVT px on Coumadin Code status Full code Disposition ICU Guarded prognosis called and updated (2) Nausea vomiting and diarrhea: Admission and Anticipated Discharge Date Admission Date: November 03, 2021 Subjective 56-year-old man with history of hypercoagulable state (factor V Leiden mutation , recurrent blood clots) on Coumadin, hyperlipidemia who presents with cough, nausea, vomiting diarrhea Being managed for acute hypoxic respiratory failure due to COVID-[address] PE on 11/19 did not show PE but showed small pneumomediastinum as well as Progression of bilateral opacities On 11/20, patient respiratory status worsened and had to be intubated. Patient seen and examined Currently intubated and sedated Currently in prone position Review of Systems Review of Systems: Unobtainable due to endotracheal tube Physical Exam Constitutional: Intubated and sedated ENMT: ETT in situ Respiratory: Currently proned. Diminished breath sounds +Crackles Cardiovascular: Rate/Rhythm: regular rate and regular rhythm Not able to auscultate as in prone position Gastrointestinal (Abdomen): Limited due to prone position Musculoskeletal: No pedal edema Neurologic: Intubated and sedated Genitourinary: Vaughn in situ Results & Data Results & Data ([facility]) Vital Signs (Past 12 Hours) Vital Signs Temp Pulse Resp BP Pulse Ox 11/21/21 11:30 36.3 C L 82 25 H 111/74 90 11/21/21 11:15 36.3 C L 83 25 H 111/73 90 11/21/21 11:00 36.3 C L 83 28 H 112/76 93 11/21/21 10:45 36.3 C L 85 28 H 106/74 92 11/21/21 10:40 84 28 H 92 11/21/21 10:30 36.3 C L 84 28 H 111/75 94 11/21/21 10:15 36.3 C L 86 28 H 109/73 94 11/21/21 10:00 36.3 C L 86 28 H 110/75 93 11/21/21 09:45 36.3 C L 86 28 H 111/75 93 11/21/21 09:30 36.3 C L 85 28 H 113/74 93 11/21/21 09:15 36.3 C L 87 28 H 113/74 92 11/21/21 09:00 36.3 C L 87 28 H 112/74 92 11/21/21 08:45 36.3 C L 89 28 H 139/89 92 11/21/21 08:30 36.3 C L 81 28 H 11/21/21 08:15 36.3 C L 95 H 28 H 98/70 L 91 11/21/21 08:00 36.3 C L 89 28 H 128/85 92 11/21/21 07:45 36.3 C L 87 28 H 129/83 92 11/21/21 07:30 36.3 C L 88 28 H 125/85 93 11/21/21 07:15 36.3 C L 86 28 H 126/84 94 11/21/21 07:00 36.3 C L 86 28 H 128/86 93 11/21/21 04:00 130/72 11/21/21 02:28 97 H 28 H 90 11/21/21 00:00 110/66 Laboratory Results Abnormal lab results 11/20/21 11/21/21 11/21/21 Range/Units 13:57 05:05 05:42 WBC 27.64 H D (4.8-10.8) K/uL POC Hgb (14.0-18.0) g/dl Hct 40.8 L (42-52) % POC Hct (42-52) % PT (9.0-12.0) Seconds INR (0.9-1.1) APTT (21.0-31.0) Seconds POC pH 7.32 L (7.35-7.45) POC pCO2 57 H (35-46) mmHg POC pO2 71 L (80-95) mmHg POC HCO3 29 H (19-24) feliz/L POC Total CO2 (24-31) mmol/L POC Base Excess 3.0 H (-9-1.8) feliz/L ABG pH (Temp Correct) 7.324 L (7.35-7.45) ABG pCO2 (Temp Corrct 56 H (35-46) mmHg POC Sodium 121 L (135-144) mmol/L Sodium (136-145) mmol/L Chloride (98-107) mmol/L BUN (7-18) mg/dl Creatinine (0.6-1.4) mg/dl Glucose (70-99) mg/dl POC Glucose 102 H (70-99) mg/dl 11/21/21 11/21/21 11/21/21 Range/Units 05:42 05:42 11:47 WBC (4.8-10.8) K/uL POC Hgb (14.0-18.0) g/dl Hct (42-52) % POC Hct (42-52) % PT 14.3 H (9.0-12.0) Seconds INR 1.5 H (0.9-1.1) APTT 36.3 H (21.0-31.0) Seconds POC pH (7.35-7.45) POC pCO2 (35-46) mmHg POC pO2 (80-95) mmHg POC HCO3 (19-24) efliz/L POC Total CO2 (24-31) mmol/L POC Base Excess (-9-1.8) feliz/L ABG pH (Temp Correct) (7.35-7.45) ABG pCO2 (Temp Corrct (35-46) mmHg POC Sodium (135-144) mmol/L Sodium 120 L (136-145) mmol/L Chloride 84 L (98-107) mmol/L BUN 22 H D (7-18) mg/dl Creatinine 1.55 H D (0.6-1.4) mg/dl Glucose 271 H (70-99) mg/dl POC Glucose 284 H (70-99) mg/dl 11/21/ Range/Units 11:49 WBC (4.8-10.8) K/uL POC Hgb 13.6 L (14.0-18.0) g/dl Hct (42-52) % POC Hct 40 L (42-52) % PT (9.0-12.0) Seconds INR (0.9-1.1) APTT (21.0-31.0) Seconds POC pH (7.35-7.45) POC pCO2 56 H (35-46) mmHg POC pO2 67 L (80-95) mmHg POC HCO3 31 H (19-24) feliz/L POC Total CO2 33 H (24-31) mmol/L POC Base Excess 5.0 H (-9-1.8) feliz/L ABG pH (Temp Correct) (7.35-7.45) ABG pCO2 (Temp Corrct 54 H (35-46) mmHg POC Sodium 124 L (135-144) mmol/L Sodium (136-145) mmol/L Chloride (98-107) mmol/L BUN (7-18) mg/dl Creatinine (0.6-1.4) mg/dl Glucose (70-99) mg/dl POC Glucose (70-99) mg/dl
[2021-11-21 12:06] LABS: iSTAT Art Bld Gas pCO2 Correct 54 mmHg (35-46); iSTAT Art Bld Gas pH Corrected 7.363 (7.35-7.45); iSTAT Arterial Blood Gas HCO3 31 meg/L (19-24); iSTAT Arterial Blood Gas pCO2 56 mmHg (35-46); iSTAT Arterial Blood Gas pH 7.35 (7.35-7.45); iSTAT Arterial Blood Gas pO2 67 mmHg (80-95); iSTAT Arterial Blood Gas pO2 C 64; iSTAT Carbon Dioxide 33 mmol/L (24-31); iSTAT FiO2 70 %; iSTAT Hematocrit 40 % (42-52); iSTAT Hemoglobin 13.6 g/dl (14.0-18.0); iSTAT Potassium 3.6 mmol/L (3.3-5.0); iSTAT Site Art Line; iSTAT Sodium 124 mmol/L (135-144)
[2021-11-21] MEDS ORDERED: STAT IV Infusion **Titration per Protocol STA (12:06)
[2021-11-21] MEDS ORDERED: INSULIN PROTOCOL GOAL RANGE ONE (12:06)
[2021-11-21] MEDS ORDERED: PHARMACY GLYCEMIC MGMT CONSULT PRN (12:10)
[2021-11-21] MEDS ORDERED: CARBOHYDRATES FOR HYPOGLYCEMIA PO PRN (12:15)
[2021-11-21] MEDS ORDERED: NovoLIN-R BOLUS FROM BAG IV ONE (12:15)
[2021-11-21] MEDS ORDERED: GLUCOSE 10 TABS/TUBE PO PRN (12:15)
[2021-11-21] MEDS ORDERED: GLUCAGON FOR INJ 1 MG VIAL IM PRN (12:15)
[2021-11-21] MEDS ORDERED: GLUCOSE 40% GEL 15 GM TUBE PO PRN (12:15)
[2021-11-21] MEDS ORDERED: [UNRECOGNIZED DRUG - REMARK] ONE (12:45)
[2021-11-21] MEDS: dexAMETHasone 20 MG in SODIUM CHLORIDE 0.9% 50 ML IV SCH (13:00)
[2021-11-21] MEDS: INSULIN REGULAR 250 UNITS in SODIUM CHLORIDE 0.9% 247.5 ML IV SCH (13:21)
[2021-11-21 13:30] LABS: Partial Thromboplastin Ratio 1.5; Partial Thromboplastin Time 40.7 Seconds (21.0-31.0)
--- NOTE | 2021-11-21 15:07 | Critical Care Progress Note ---
Date of Service November 21, 2021 Assessment & Plan (1) Acute hypoxemic respiratory failure due to COVID-19: (2) 2019 novel coronavirus-infected pneumonia (NCIP): (3) Factor V Leiden carrier: (4) Pneumomediastinum: Plan: CT chest 11/19/2021 personally reviewed: Diffuse patchy opacities appreciated bilaterally upper and lower lobes I do think there is a component of fibrosis to certain degree Bilateral pleural effusion small No significant mediastinal lymphadenopathy -- VDRF Likely secondary to Acute hypoxic respiratory failure Secondary to multilobar COVID-19 pneumonia Continue with ventilatory support COVID-19 + 11/03/2021 No central PE on CTA 11/19/2021 CRP 34.6 Procalcitonin 0.23 NT BNP 501 Continue with lung protective ventilation High PEEP, low tidal volume to keep Plateau < 30 with permissive hypercapnea if need be. Monitor ABGs Patient was started on late DEXA ARDS protocol Patient is not a candidate for ECMO -- FRANDY Likely from initial hypotensive episode. Monitor BUN/creatinine Avoid nephrotoxic medications Strict ins and outs --Acute hyponatremia We will give hypertonic saline --Pulmonary hypertension Type III likely from pulmonary fibrosis likely developing from COVID-19 pneumonia --Pneumomediastinum Small Would recommend to avoid positive pressure ventilation if possible Try high flow the patient is able to sustain on high flow then that should be okay If it is absolutely necessary to have BiPAP/CPAP then it is okay to continue with it --History of factor Leiden deficiency Continue with heparin drip --History of dyslipidemia --Prophylaxis VTE: Heparin drip GI: Protonix Lines: Left IJ, right radial, positive Vaughn Diet: N.p.o. Plan: In/out: Negative 462, urine output 2450 AB.32/57/71 on 100%, PEEP of 5 At the time of examination patient's vital was still 36 with tidal volume 400. I decreased the respirated as I thought there is a component of auto peeping That did help with the peak and the plateau. I decrease her tidal volume to 380 as well. Repeat ABG showed PCO2 of 7.35 I was even able to go down on the FiO2 to 70% Continue proning for at least 18 hours then we will supine the patient. Hold Lasix as patient's creatinine is trending up. For hyponatremia. This could be a component from the Lasix that the patient was getting I will give hypertonic saline to the patient. Overall prognosis is guarded Patient's [phone] was called and updated regarding patient's condition. I have personally spent 39 minutes of critical care time in the direct management of this patient. This is a life/limb threatening event. This includes time spent evaluating patient, direct bedside care, chart review, placing orders, interpretation of diagnostic studies, discussion with consultants, patient, and family members, as well as other required patient management activities. This time is exclusive of all separately billable procedures, and teaching time and separate from and in addition to any other critical care service time. Please note the above document was generated using voice recognition software. It may contain grammatical, syntax or spelling errors. Admission and Anticipated Discharge Date Admission Date: November 03, 2021 Subjective Patient seen and examined at bedside. No acute distress, Patient was intubated 11/19/2021 He is paralyzed in prone at the time of examination He was on propofol and fentanyl Review of Systems Review of Systems: Unobtainable due to endotracheal tube Physical Exam Physical Exam: Constitutional: No acute distress HEENT: PERRLA,malar rash Respiratory system:Decreased air entry bilaterally, no wheeze, rhonchi, positive crackles bilaterally CVS: S1-S2 positive, no murmurs or gallops Abdomen: Soft, nontender, nondistended, positive bowel sounds x4 Extremities: +2 pulses bilaterally radialis/ dorsalis pedis,no cyanosis, +1 edema LLE Neuro:Paralyzed, sedated Psych:Unable to assess G/U:Positive Vaughn Skin: no rashes, warm and dry Lymphatic: no cervical or axillary lymphadenopathy Results & Data Results & Data ([facility]) Vital Signs (Past 12 Hours) Vital Signs Temp Pulse Resp BP Pulse Ox 11/21/21 14:00 36.3 C L 11/21/21 11:30 36.3 C L 82 25 H 111/74 90 11/21/21 11:15 36.3 C L 83 25 H 111/73 90 11/21/21 11:10 25 H 11/21/21 11:00 36.3 C L 83 28 H 112/76 93 11/21/21 10:45 36.3 C L 85 28 H 106/74 92 11/21/21 10:40 84 28 H 92 11/21/21 10:30 36.3 C L 84 28 H 111/75 94 11/21/21 10:15 36.3 C L 86 28 H 109/73 94 11/21/21 10:00 36.3 C L 86 28 H 110/75 93 11/21/21 09:45 36.3 C L 86 28 H 111/75 93 11/21/21 09:30 36.3 C L 85 28 H 113/74 93 11/21/21 09:15 36.3 C L 87 28 H 113/74 92 11/21/21 09:00 36.3 C L 87 28 H 112/74 92 11/21/21 08:45 36.3 C L 89 28 H 139/89 92 11/21/21 08:30 36.3 C L 81 28 H 11/21/21 08:15 36.3 C L 95 H 28 H 98/70 L 91 11/21/21 08:00 36.3 C L 89 28 H 128/85 92 11/21/21 07:45 36.3 C L 87 28 H 129/83 92 11/21/21 07:30 36.3 C L 88 28 H 125/85 93 11/21/21 07:15 36.3 C L 86 28 H 126/84 94 11/21/21 07:00 36.3 C L 86 28 H 128/86 93 11/21/21 04:00 130/72 Laboratory Results 11/21/21 05:42 11/21/21 05:42 Coding Level of Care Code Critical Care 1st 30-74 mins Diagnoses Acute hypoxemic respiratory failure due to COVID-19 U07.1; J96.01 2019 novel coronavirus-infected pneumonia (NCIP) U07.1; J12.82 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 Time Spent (min) 39
--- NOTE | 2021-11-21 15:44 | Pharmacy Report ---
Pharmacy Glycemic Short Note 2 - Date of Service November 21, 2021 - Glycemic Short BSG Results (Last 24 hours): 11/21/21 11/21/21 11/21/21 05:42 11:47 13:58 Glucose 271 H POC Glucose 284 H 214 H 11/21/21 15:02 Glucose POC Glucose 206 H OUTPATIENT ANTIDIABETIC REGIMEN: * n/a * A1c 6.0% ASSESSMENT: * Patient intubated overnight, now with worsening renal function, started on high dose dexamethasone 20 mg with elevation in BSGs * On heparin gtt, sedated with fentanyl, propofol, on norepinephrine and paralyzed with nimbex * Will start insulin infusion for elevated BSGs PLAN FOR INPATIENT GLYCEMIC CONTROL: * Insulin infusion per protocol.
[2021-11-21] MEDS: fentaNYL citrate 2,500 MCG/250 ML BAG IV SCH (16:05)
[2021-11-21 16:37] LABS: BUN Creatinine Ratio 15.2 (10-20); Calcium 8.5 mg/dl (8.5-10.1); Creatinine Clr Calc Pharmacy 52.6 ml/min; Est GFR (African American) 59.6 ml/min; Est GFR (Non-African American) 51.4 ml/min; Potassium 3.7 mmol/L (3.5-5.1)
[2021-11-21 21:19] LABS: Partial Thromboplastin Ratio 1.3; Partial Thromboplastin Time 35.3 Seconds (21.0-31.0)
[2021-11-22] MEDS: CISATRACURIUM BESYLATE 40 MG in 0.9 % SODIUM CHLORIDE 80 ML IV SCH ×13 (00:27→23:55)
[2021-11-22] MEDS ORDERED: HEPARIN IV BOLUS 3,000 UNITS in SYRINGE 0 ML IV ONE ×3 (01:00→15:30)
[2021-11-22] MEDS: propofoL 1,000 MG/100 ML VIAL IV SCH ×7 (01:47→23:55)
[2021-11-22] MEDS: ARTIFICIAL TEARS OP OINT 3.5 GM TUBE OP SCH ×5 (03:39→19:45)
[2021-11-22 04:04] LABS: iSTAT Art Bld Gas pCO2 Correct 48 mmHg (35-46); iSTAT Arterial Blood Gas HCO3 31 meg/L (19-24); iSTAT Arterial Blood Gas pCO2 49 mmHg (35-46); iSTAT Arterial Blood Gas pH 7.41 (7.35-7.45); iSTAT Arterial Blood Gas pO2 77 mmHg (80-95); iSTAT Arterial Blood Gas pO2 C 73; iSTAT Carbon Dioxide 32 mmol/L (24-31); iSTAT FiO2 65 %; iSTAT Hematocrit 38 % (42-52); iSTAT Hemoglobin 12.9 g/dl (14.0-18.0); iSTAT Potassium 3.5 mmol/L (3.3-5.0); iSTAT Site Art Line; iSTAT Sodium 130 mmol/L (135-144)
[2021-11-22 06:29] LABS: Hematocrit (blood only) 37.8 % (42-52); Hemoglobin 12.9 g/dL (14.0-18.0); Mean Corpuscular Hemoglobin 30.1 pg (25-34); Mean Corpuscular Hgb Conc 34.1 g/dL (32-36); Mean Corpuscular Volume 88.1 fL (80-100); Mean Platelet Volume 9.5 fL (7.4-10.4); Platelet Count 293 K/uL (130-400); RDW Coefficient of Variation 14.2 % (11.5-14.5); Red Blood Count 4.29 M/uL (4.7-6.1); White Blood Count 18.71 K/uL (4.8-10.8)
[2021-11-22 07:02] LABS: BUN Creatinine Ratio 18.2 (10-20); Calcium 8.9 mg/dl (8.5-10.1); Creatinine Clr Calc Pharmacy 51.6 ml/min; Est GFR (African American) 58.2 ml/min; Est GFR (Non-African American) 50.2 ml/min; Potassium 3.4 mmol/L (3.5-5.1)
[2021-11-22 07:26] LABS: INR 1.2 (0.9-1.1); Partial Thromboplastin Ratio 1.3; Partial Thromboplastin Time 34.6 Seconds (21.0-31.0); Prothrombin Time 12.4 Seconds (9.0-12.0)
[2021-11-22] MEDS: INSULIN ASPART PER UNIT SC SCH ×4 (08:11→19:19)
[2021-11-22] MEDS: PANTOprazole 40 MG in SYRINGE 0 ML IV SCH ×2 (08:12→21:00)
[2021-11-22] MEDS ORDERED: HEPARIN SOD (PORCINE) 1000 UNIT/ML IV ONE ×2 (08:19→15:12)
--- NOTE | 2021-11-22 08:28 | Critical Care Progress Note ---
Date of Service November 22, 2021 Assessment & Plan (1) Acute hypoxemic respiratory failure due to COVID-19: (2) 2019 novel coronavirus-infected pneumonia (NCIP): (3) Factor V Leiden carrier: (4) Pneumomediastinum: Plan: CT chest 11/19/2021 personally reviewed: Diffuse patchy opacities appreciated bilaterally upper and lower lobes I do think there is a component of fibrosis to certain degree Bilateral pleural effusion small No significant mediastinal lymphadenopathy -- VDRF Likely secondary to Acute hypoxic respiratory failure Secondary to multilobar COVID-19 pneumonia Patient has very poor compliance. Continue with ventilatory support COVID-19 + 11/03/2021 No central PE on CTA 11/19/2021 CRP 34.6 Procalcitonin 0.23 NT BNP 501 Continue with lung protective ventilation High PEEP, low tidal volume to keep Plateau < 30 with permissive hypercapnea if need be. Monitor ABGs Patient was started on late DEXA ARDS protocol Patient is not a candidate for ECMO -- FRANDY Likely from initial hypotensive episode. Monitor BUN/creatinine Avoid nephrotoxic medications Strict ins and outs --S/p acute hyponatremia S/p 100 mL hypertonic saline on 11/21/2021 --Pulmonary hypertension Type III likely from pulmonary fibrosis likely developing from COVID-19 pneumonia --Pneumomediastinum Small Would recommend to avoid positive pressure ventilation if possible Try high flow the patient is able to sustain on high flow then that should be okay If it is absolutely necessary to have BiPAP/CPAP then it is okay to continue with it --History of factor Leiden deficiency Continue with heparin drip --History of dyslipidemia --Prophylaxis VTE: Heparin drip GI: Protonix Lines: Left IJ, right radial, positive Vaughn Diet: N.p.o. Plan: In/out: Negative 268, urine output 2650 AB.41/49/77 on 65%, PEEP of 3 Chest x-ray from today still shows diffuse infiltrates bilaterally Try to titrate down Levophed Continue with 5 days of azithromycin Continue to hold Lasix as patient's creatinine is still 1.5 which is increased from baseline 1.5 Patient's was called and updated regarding his condition. Overall prognosis is guarded Patient's [phone] I have personally spent 38 minutes of critical care time in the direct management of this patient. This is a life/limb threatening event. This includes time spent evaluating patient, direct bedside care, chart review, placing orders, interpretation of diagnostic studies, discussion with consultants, patient, and family members, as well as other required patient management activities. This time is exclusive of all separately billable procedures, and teaching time and separate from and in addition to any other critical care service time. Please note the above document was generated using voice recognition software. It may contain grammatical, syntax or spelling errors. Admission and Anticipated Discharge Date Admission Date: November 03, 2021 Subjective Patient seen and examined at bedside. No acute distress, no events overnight Patient was on 0.07 of Levophed with map in the 90s. I switched of the Levophed Patient was supine last night. Was on propofol and fentanyl for sedation Review of Systems Review of Systems: Unobtainable due to endotracheal tube Physical Exam Physical Exam: Constitutional: No acute distress HEENT: PERRLA,malar rash Respiratory system:Decreased air entry bilaterally, no wheeze, rhonchi, positive crackles bilaterally CVS: S1-S2 positive, no murmurs or gallops Abdomen: Soft, nontender, nondistended, positive bowel sounds x4 Extremities: +2 pulses bilaterally radialis/ dorsalis pedis,no cyanosis, +1 edema LLE Neuro:Paralyzed, sedated Psych:Unable to assess G/U:Positive Vaughn Skin: no rashes, warm and dry Lymphatic: no cervical or axillary lymphadenopathy Results & Data Results & Data ([facility]) Vital Signs (Past 12 Hours) Vital Signs Temp Pulse Resp BP Pulse Ox 11/22/21 07:34 61 25 H 93 11/22/21 05:00 36.2 C L 63 25 H 96/62 L 92 11/22/21 04:50 36.2 C L 64 25 H 91 11/22/21 04:40 36.3 C L 66 25 H 91 11/22/21 04:30 36.2 C L 67 25 H 97/62 L 91 11/22/21 04:20 36.3 C L 66 25 H 91 11/22/21 04:10 36.3 C L 66 25 H 91 11/22/21 04:00 36.3 C L 66 25 H 99/63 L 91 11/22/21 03:50 36.3 C L 66 25 H 91 11/22/21 03:47 67 25 H 92 11/22/21 03:40 36.3 C L 68 25 H 94 11/22/21 03:30 36.3 C L 65 25 H 96/62 L 94 11/22/21 03:20 36.3 C L 65 25 H 94 11/22/21 03:10 36.3 C L 66 25 H 94 11/22/21 03:00 36.3 C L 66 25 H 97/64 L 94 11/22/21 02:50 36.3 C L 67 25 H 94 11/22/21 02:40 36.3 C L 69 25 H 94 11/22/21 02:30 36.3 C L 66 25 H 99/67 L 94 11/22/21 02:20 36.3 C L 67 25 H 94 11/22/21 02:10 36.3 C L 69 25 H 94 11/22/21 02:00 36.4 C L 70 25 H 109/70 94 11/22/21 01:50 36.4 C L 63 25 H 94 11/22/21 01:40 36.4 C L 68 25 H 93 11/22/21 01:30 36.4 C L 72 25 H 88/54 L 93 11/22/21 01:20 36.4 C L 68 25 H 92 11/22/21 01:10 36.5 C 68 25 H 92 11/22/21 01:00 36.5 C 68 25 H 89/59 L 91 11/22/21 00:50 36.5 C 71 25 H 91 11/22/21 00:40 36.5 C 76 25 H 91 11/22/21 00:30 36.5 C 77 25 H 86/59 L 91 11/22/21 00:20 36.5 C 78 25 H 91 11/22/21 00:10 36.5 C 78 25 H 91 11/22/21 00:00 36.4 C L 86 25 H 99/64 L 92 11/21/21 23:50 36.4 C L 98 H 25 H 92 11/21/21 23:40 36.4 C L 87 25 H 91 11/21/21 23:30 36.3 C L 96 H 25 H 120/77 93 11/21/21 23:24 83 25 H 92 11/21/21 23:20 122 H 25 H 95 11/21/21 23:10 36.2 C L 94 H 25 H 91 11/21/21 23:00 36.2 C L 81 25 H 119/82 92 11/21/21 22:50 36.2 C L 84 25 H 92 11/21/21 22:40 36.1 C L 75 25 H 92 11/21/21 22:30 36.1 C L 77 25 H 118/74 92 11/21/21 22:20 36.1 C L 80 25 H 93 11/21/21 22:10 36.0 C L 72 25 H 91 11/21/21 22:00 36.0 C L 70 25 H 102/67 91 11/21/21 21:50 36.0 C L 70 25 H 91 11/21/21 21:40 36.0 C L 70 25 H 91 11/21/21 21:30 36.0 C L 69 25 H 102/66 91 11/21/21 21:20 36.0 C L 71 25 H 91 11/21/21 21:10 36.0 C L 72 25 H 91 11/21/21 21:00 36.0 C L 70 25 H 103/67 91 11/21/21 20:50 36.0 C L 72 25 H 91 Laboratory Results 11/22/21 05:42 11/22/21 05:42 Coding Level of Care Code Critical Care 1st 30-74 mins Diagnoses Acute hypoxemic respiratory failure due to COVID-19 U07.1; J96.01 2019 novel coronavirus-infected pneumonia (NCIP) U07.1; J12.82 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 Time Spent (min) 38
[2021-11-22] MEDS: AZITHROMYCIN 500 MG in DEXTROSE 5% 250 ML IV SCH (08:43)
[2021-11-22] MEDS: NOREPINEPHRINE/D5W 8 MG/508 ML BAG IV SCH ×2 (08:51→22:07)
[2021-11-22] MEDS ORDERED: POTASSIUM CHLORIDE / WTR 20 MEQ/100 ML PLCT IV ONE (09:00)
[2021-11-22 09:21] LABS: Magnesium 2.7 mg/dl (1.8-2.4); Phosphorus 3.4 mg/dl (2.5-4.9)
[2021-11-22] MEDS: fentaNYL citrate 2,500 MCG/250 ML BAG IV SCH ×3 (09:29→22:08)
--- NOTE | 2021-11-22 09:45 | XRay Report ---
XR chest 1V portable CLINICAL HISTORY: f/u TECHNIQUE: Single frontal radiograph of the chest was obtained. Comparison: Comparison is made to chest one view 11/20/2021 FINDINGS: Lines and tubes are stable. The cardiomediastinal silhouette is obscured.Multifocal airspace opacitie s are seen. No evidence of pleural effusion or pneumothorax. IMPRESSION: Multifocal airspace opacities may represent atelectasis, pneumonia, and/or aspiration. ACT 112: Negative or not required by law. Electronically signed by: Quincy Morton M.D. 11/22/2021 9:44 AM
[2021-11-22] MEDS: dexAMETHasone 20 MG in SODIUM CHLORIDE 0.9% 50 ML IV SCH (13:24)
[2021-11-22] MEDS: HEPARIN SODIUM/DEXTROSE 25,000 UNITS/500 ML BAG IV SCH (13:49)
--- NOTE | 2021-11-22 14:01 | Hospitalist Progress Note ---
Date of Service November 22, 2021 Assessment & Plan (1) COVID-19: Plan: Acute hypoxic respiratory failure due to COVID-19 pneumonia Tested positive to COVID 19 on 10/27/21 Initially completed course of remdesivir and dexamethasone Did not meet criteria for baricitinib as patient was already admitted for more than 72 hours Acute worsening respiratory status CT PE did not show any PE but showed progression of bilateral opacities, small amount of pneumomediastinum and small bilateral pleural effusion. Currently on azithromycin. Had previously completed cefepime and doxycycline. Currently intubated. Intubated on 11/20/21 MRSA swab is negative Dexamethasone resumed Currently on fentanyl, propofol and levophed On 11/20/21, I called [facility] and spoke with Dr. Samson. We discussed patient. Unfortunately, patient is not an ECMO candidate Acute Hyponatremia FRANDY likely related to hypotension Hyponatremia improving from 120-129 Monitor BMP Hx DVT, Factor V Leiden Has mild edema of the left lower extremity, chronic per patient Doppler ultrasound done during this admission: nonocclusive thrombus present within the common femoral vein and the proximal to mid superficial femoral vein- chronic per Radiologist Coumadin on hold Currently on heparin drip Dyslipidemia Plan to resume Atorvastatin DVT px on Coumadin Code status Full code Disposition ICU Guarded prognosis (2) Nausea vomiting and diarrhea: Admission and Anticipated Discharge Date Admission Date: November 03, 2021 Subjective 56-year-old man with history of hypercoagulable state (factor V Leiden mutation, recurrent blood clots) on Coumadin, hyperlipidemia who presents with cough, nausea, vomiting diarrhea Being managed for acute hypoxic respiratory failure due to COVID-[address] PE on 11/19 did not show PE but showed small pneumomediastinum as well as Progression of bilateral opacities On 11/20, patient respiratory status worsened and had to be intubated. Patient seen and examined Currently intubated and sedated Review of Systems Review of Systems: Unobtainable due to endotracheal tube Physical Exam Constitutional: Intubated ENMT: ETT in situ Respiratory: Intubated, diminished breath sounds Cardiovascular: Rate/Rhythm: regular rate and regular rhythm S1 S2 Gastrointestinal (Abdomen): normal bowel sounds, soft, nontender, no hepatosplenomegaly Neurologic: Intubated and sedated Genitourinary: Vaughn in situ Results & Data Results & Data ([facility]) Vital Signs (Past 12 Hours) Vital Signs Temp Pulse Resp BP Pulse Ox 11/22/21 13:45 36.7 C 83 20 81/51 L 90 11/22/21 13:30 36.7 C 118 H 23 109/70 89 L 11/22/21 13:15 36.7 C 106 H 20 97/60 L 91 11/22/21 13:00 36.7 C 100 H 20 112/60 91 11/22/21 12:45 36.7 C 111 H 20 94/65 L 90 11/22/21 12:30 36.6 C 109 H 20 104/65 90 11/22/21 12:15 36.6 C 114 H 20 90/66 L 90 11/22/21 12:00 36.6 C 110 H 20 94/63 L 92 11/22/21 11:45 36.6 C 98 H 25 H 129/74 90 11/22/21 11:30 36.5 C 87 25 H 114/74 90 11/22/21 11:15 36.5 C 80 25 H 113/66 90 11/22/21 11:00 36.5 C 80 25 H 112/66 90 11/22/21 10:45 36.5 C 95 H 25 H 112/66 88 L 11/22/21 10:36 97 H 25 H 90 11/22/21 10:30 36.5 C 85 25 H 118/76 92 11/22/21 10:15 36.5 C 73 25 H 105/68 92 11/22/21 10:00 36.4 C L 90 25 H 118/71 93 11/22/21 09:45 36.4 C L 87 25 H 111/72 93 11/22/21 09:30 36.4 C L 84 25 H 111/63 93 11/22/21 09:15 36.3 C L 83 25 H 98/62 L 93 11/22/21 09:00 36.4 C L 87 25 H 124/86 92 11/22/21 08:45 36.4 C L 78 25 H 101/70 93 11/22/21 08:30 36.3 C L 66 25 H 114/71 93 11/22/21 08:15 36.3 C L 61 25 H 98/62 L 92 11/22/21 08:00 36.3 C L 63 25 H 98/62 L 92 11/22/21 07:45 36.3 C L 62 25 H 98/63 L 92 11/22/21 07:34 61 25 H 93 11/22/21 07:30 36.3 C L 62 25 H 99/63 L 94 11/22/21 07:15 36.3 C L 61 25 H 101/64 93 11/22/21 07:00 36.3 C L 64 25 H 95/63 L 94 11/22/21 06:45 36.3 C L 62 25 H 98/63 L 94 11/22/21 06:30 36.3 C L 67 25 H 99/64 L 94 11/22/21 06:15 36.3 C L 62 25 H 102/66 93 11/22/21 06:00 36.2 C L 63 25 H 96/64 L 93 11/22/21 05:45 36.2 C L 60 25 H 101/67 93 11/22/21 05:30 36.2 C L 63 25 H 101/65 93 11/22/21 05:15 36.2 C L 63 25 H 97/64 L 92 11/22/21 05:00 36.2 C L 63 25 H 96/62 L 92 11/22/21 04:50 36.2 C L 64 25 H 91 11/22/21 04:40 36.3 C L 66 25 H 91 11/22/21 04:30 36.2 C L 67 25 H 97/62 L 91 11/22/21 04:20 36.3 C L 66 25 H 91 11/22/21 04:10 36.3 C L 66 25 H 91 11/22/21 04:00 36.3 C L 66 25 H 99/63 L 91 11/22/21 03:50 36.3 C L 66 25 H 91 11/22/21 03:47 67 25 H 92 11/22/21 03:40 36.3 C L 68 25 H 94 11/22/21 03:30 36.3 C L 65 25 H 96/62 L 94 11/22/21 03:20 36.3 C L 65 25 H 94 11/22/21 03:10 36.3 C L 66 25 H 94 11/22/21 03:00 36.3 C L 66 25 H 97/64 L 94 11/22/21 02:50 36.3 C L 67 25 H 94 11/22/21 02:40 36.3 C L 69 25 H 94 11/22/21 02:30 36.3 C L 66 25 H 99/67 L 94 11/22/21 02:20 36.3 C L 67 25 H 94 11/22/21 02:10 36.3 C L 69 25 H 94 Laboratory Results Abnormal lab results 11/21/21 11/21/21 11/21/21 Range/Units 16:04 16:06 17:09 WBC (4.8-10.8) K/uL RBC (4.7-6.1) M/uL Hgb (14.0-18.0) g/dL POC Hgb (14.0-18.0) g/dl Hct (42-52) % POC Hct (42-52) % PT (9.0-12.0) Seconds INR (0.9-1.1) APTT (21.0-31.0) Seconds POC pCO2 (35-46) mmHg POC pO2 (80-95) mmHg POC HCO3 (19-24) feliz/L POC Total CO2 (24-31) mmol/L POC Base Excess (-9-1.8) feliz/L ABG pCO2 (Temp Corrct (35-46) mmHg POC Sodium (135-144) mmol/L Sodium 127 L D (136-145) mmol/L Potassium (3.5-5.1) mmol/L Chloride 91 L (98-107) mmol/L BUN 23 H (7-18) mg/dl Creatinine 1.48 H (0.6-1.4) mg/dl Glucose 207 H (70-99) mg/dl POC Glucose 190 H 206 H (70-99) mg/dl Magnesium (1.8-2.4) mg/dl 11/21/21 11/21/21 11/21/21 Range/Units 18:02 19:24 20:05 WBC (4.8-10.8) K/uL RBC (4.7-6.1) M/uL Hgb (14.0-18.0) g/dL POC Hgb (14.0-18.0) g/dl Hct (42-52) % POC Hct (42-52) % PT (9.0-12.0) Seconds INR (0.9-1.1) APTT (21.0-31.0) Seconds POC pCO2 (35-46) mmHg POC pO2 (80-95) mmHg POC HCO3 (19-24) feliz/L POC Total CO2 (24-31) mmol/L POC Base Excess (-9-1.8) feliz/L ABG pCO2 (Temp Corrct (35-46) mmHg POC Sodium (135-144) mmol/L Sodium (136-145) mmol/L Potassium (3.5-5.1) mmol/L Chloride (98-107) mmol/L BUN (7-18) mg/dl Creatinine (0.6-1.4) mg/dl Glucose (70-99) mg/dl POC Glucose 171 H 177 H 171 H (70-99) mg/dl Magnesium (1.8-2.4) mg/dl 11/21/21 11/21/21 11/22/21 Range/Units 20:17 22:26 00:16 WBC (4.8-10.8) K/uL RBC (4.7-6.1) M/uL Hgb (14.0-18.0) g/dL POC Hgb (14.0-18.0) g/dl Hct (42-52) % POC Hct (42-52) % PT (9.0-12.0) Seconds INR (0.9-1.1) APTT 35.3 H (21.0-31.0) Seconds POC pCO2 (35-46) mmHg POC pO2 (80-95) mmHg POC HCO3 (19-24) feliz/L POC Total CO2 (24-31) mmol/L POC Base Excess (-9-1.8) feliz/L ABG pCO2 (Temp Corrct (35-46) mmHg POC Sodium (135-144) mmol/L Sodium (136-145) mmol/L Potassium (3.5-5.1) mmol/L Chloride (98-107) mmol/L BUN (7-18) mg/dl Creatinine (0.6-1.4) mg/dl Glucose (70-99) mg/dl POC Glucose 168 H 177 H (70-99) mg/dl Magnesium (1.8-2.4) mg/dl 11/22/21 11/22/21 11/22/21 Range/Units 02:11 03:48 05:42 WBC 18.71 H (4.8-10.8) K/uL RBC 4.29 L (4.7-6.1) M/uL Hgb 12.9 L (14.0-18.0) g/dL POC Hgb 12.9 L (14.0-18.0) g/dl Hct 37.8 L (42-52) % POC Hct 38 L (42-52) % PT (9.0-12.0) Seconds INR (0.9-1.1) APTT (21.0-31.0) Seconds POC pCO2 49 H (35-46) mmHg POC pO2 77 L (80-95) mmHg POC HCO3 31 H (19-24) feliz/L POC Total CO2 32 H (24-31) mmol/L POC Base Excess 6.0 H (-9-1.8) feliz/L ABG pCO2 (Temp Corrct 48 H (35-46) mmHg POC Sodium 130 L (135-144) mmol/L Sodium (136-145) mmol/L Potassium (3.5-5.1) mmol/L Chloride (98-107) mmol/L BUN (7-18) mg/dl Creatinine (0.6-1.4) mg/dl Glucose (70-99) mg/dl POC Glucose 142 H (70-99) mg/dl Magnesium (1.8-2.4) mg/dl 11/22/21 11/22/21 11/22/21 Range/Units 05:42 05:42 06:05 WBC (4.8-10.8) K/uL RBC (4.7-6.1) M/uL Hgb (14.0-18.0) g/dL POC Hgb (14.0-18.0) g/dl Hct (42-52) % POC Hct (42-52) % PT 12.4 H (9.0-12.0) Seconds INR 1.2 H (0.9-1.1) APTT 34.6 H (21.0-31.0) Seconds POC pCO2 (35-46) mmHg POC pO2 (80-95) mmHg POC HCO3 (19-24) feliz/L POC Total CO2 (24-31) mmol/L POC Base Excess (-9-1.8) feliz/L ABG pCO2 (Temp Corrct (35-46) mmHg POC Sodium (135-144) mmol/L Sodium 129 L (136-145) mmol/L Potassium 3.4 L (3.5-5.1) mmol/L Chloride 94 L (98-107) mmol/L BUN 27 H (7-18) mg/dl Creatinine 1.51 H (0.6-1.4) mg/dl Glucose 144 H (70-99) mg/dl POC Glucose 157 H (70-99) mg/dl Magnesium (1.8-2.4) mg/dl 11/22/21 11/22/21 11/22/21 Range/Units 08:45 10:45 14:42 WBC (4.8-10.8) K/uL RBC (4.7-6.1) M/uL Hgb (14.0-18.0) g/dL POC Hgb (14.0-18.0) g/dl Hct (42-52) % POC Hct (42-52) % PT (9.0-12.0) Seconds INR (0.9-1.1) APTT 36.6 H (21.0-31.0) Seconds POC pCO2 (35-46) mmHg POC pO2 (80-95) mmHg POC HCO3 (19-24) feliz/L POC Total CO2 (24-31) mmol/L POC Base Excess (-9-1.8) feliz/L ABG pCO2 (Temp Corrct (35-46) mmHg POC Sodium (135-144) mmol/L Sodium (136-145) mmol/L Potassium (3.5-5.1) mmol/L Chloride (98-107) mmol/L BUN (7-18) mg/dl Creatinine (0.6-1.4) mg/dl Glucose (70-99) mg/dl POC Glucose 128 H (70-99) mg/dl Magnesium 2.7 H (1.8-2.4) mg/dl 11/22/21 Range/Units 15:05 WBC (4.8-10.8) K/uL RBC (4.7-6.1) M/uL Hgb (14.0-18.0) g/dL POC Hgb (14.0-18.0) g/dl Hct (42-52) % POC Hct (42-52) % PT (9.0-12.0) Seconds INR (0.9-1.1) APTT (21.0-31.0) Seconds POC pCO2 (35-46) mmHg POC pO2 (80-95) mmHg POC HCO3 (19-24) feliz/L POC Total CO2 (24-31) mmol/L POC Base Excess (-9-1.8) feliz/L ABG pCO2 (Temp Corrct (35-46) mmHg POC Sodium (135-144) mmol/L Sodium (136-145) mmol/L Potassium (3.5-5.1) mmol/L Chloride (98-107) mmol/L BUN (7-18) mg/dl Creatinine (0.6-1.4) mg/dl Glucose (70-99) mg/dl POC Glucose 114 H (70-99) mg/dl Magnesium (1.8-2.4) mg/dl
[2021-11-22 15:08] LABS: Partial Thromboplastin Ratio 1.4; Partial Thromboplastin Time 36.6 Seconds (21.0-31.0)
[2021-11-22 21:34] LABS: Partial Thromboplastin Ratio 1.5
[2021-11-22] MEDS: DEXTROSE 50% 50 ML SYRINGE IV PRN (23:15)
[2021-11-23] MEDS: ARTIFICIAL TEARS OP OINT 3.5 GM TUBE OP SCH ×6 (00:56→20:12)
[2021-11-23] MEDS: fentaNYL citrate 2,500 MCG/250 ML BAG IV SCH ×2 (02:28→17:39)
[2021-11-23] MEDS: CISATRACURIUM BESYLATE 40 MG in 0.9 % SODIUM CHLORIDE 80 ML IV SCH ×10 (02:29→19:35)
[2021-11-23 03:50] LABS: iSTAT Art Bld Gas pCO2 Correct 64 mmHg (35-46); iSTAT Art Bld Gas pH Corrected 7.318 (7.35-7.45); iSTAT Arterial Blood Gas HCO3 33 meg/L (19-24); iSTAT Arterial Blood Gas pCO2 65 mmHg (35-46); iSTAT Arterial Blood Gas pH 7.32 (7.35-7.45); iSTAT Arterial Blood Gas pO2 66 mmHg (80-95); iSTAT Arterial Blood Gas pO2 C 65; iSTAT Carbon Dioxide 35 mmol/L (24-31); iSTAT FiO2 55 %; iSTAT Hematocrit 38 % (42-52); iSTAT Hemoglobin 12.9 g/dl (14.0-18.0); iSTAT Potassium 3.4 mmol/L (3.3-5.0); iSTAT Site Art Line; iSTAT Sodium 131 mmol/L (135-144)
[2021-11-23 04:48] LABS: Hematocrit (blood only) 36.7 % (42-52); Hemoglobin 12.2 g/dL (14.0-18.0); Mean Corpuscular Hemoglobin 29.5 pg (25-34); Mean Corpuscular Hgb Conc 33.2 g/dL (32-36); Mean Corpuscular Volume 88.9 fL (80-100); Mean Platelet Volume 9.2 fL (7.4-10.4); Platelet Count 247 K/uL (130-400); RDW Coefficient of Variation 14.4 % (11.5-14.5); RDW Standard Deviation 47.2 fL (36.4-46.3); Red Blood Count 4.13 M/uL (4.7-6.1); White Blood Count 13.16 K/uL (4.8-10.8)
[2021-11-23 04:58] LABS: INR 1.1 (0.9-1.1); Partial Thromboplastin Ratio 1.3; Partial Thromboplastin Time 34.5 Seconds (21.0-31.0); Prothrombin Time 11.4 Seconds (9.0-12.0)
[2021-11-23 05:04] LABS: BUN Creatinine Ratio 23.4 (10-20); Calcium 8.4 mg/dl (8.5-10.1); Creatinine Clr Calc Pharmacy 52.6 ml/min; Est GFR (African American) 59.6 ml/min; Est GFR (Non-African American) 51.4 ml/min; Magnesium 2.6 mg/dl (1.8-2.4); Phosphorus 3.7 mg/dl (2.5-4.9); Potassium 3.4 mmol/L (3.5-5.1)
[2021-11-23] MEDS: propofoL 1,000 MG/100 ML VIAL IV SCH ×3 (05:30→18:23)
[2021-11-23] MEDS: INSULIN REGULAR 250 UNITS in SODIUM CHLORIDE 0.9% 247.5 ML IV SCH (05:33)
[2021-11-23] MEDS: HEPARIN SODIUM/DEXTROSE 25,000 UNITS/500 ML BAG IV SCH ×2 (06:30→17:39)
[2021-11-23] MEDS ORDERED: HEPARIN SOD (PORCINE) 1000 UNIT/ML IV ONE (07:15)
[2021-11-23] MEDS: INSULIN ASPART PER UNIT SC SCH ×4 (07:31→20:14)
[2021-11-23] MEDS: AZITHROMYCIN 500 MG in DEXTROSE 5% 250 ML IV SCH (08:04)
[2021-11-23] MEDS: PANTOprazole 40 MG in SYRINGE 0 ML IV SCH ×2 (08:04→20:11)
--- NOTE | 2021-11-23 08:31 | XRay Report ---
XR chest 1V portable CLINICAL HISTORY: f/u TECHNIQUE: Single frontal radiograph of the chest was obtained. Comparison: Comparison is made to chest one view 11/22/2021 FINDINGS: Lines and tubes are stable. The cardiomediastinal silhouette is stable. Multifocal airspace opacities are seen. No evidence of pleural effusion or pneumothorax. IMPRESSION: Multifocal airspace opacities may represent atelectasis, pneumonia, and/or aspiration. ACT 112: Negative or not required by law. Electronically signed by: Quincy Morton M.D. 11/23/2021 8:30 AM
[2021-11-23] MEDS ORDERED: INSULIN GLARGINE SOLOSTAR 100 UNITS/ML 3 ML PEN SC ONE (08:45)
--- NOTE | 2021-11-23 11:24 | Pharmacy Report ---
Pharmacy Glycemic Short Note 2 - Date of Service November 23, 2021 - Glycemic Short BSG Results (Last 24 hours): 11/22/21 11/22/21 11/22/21 15:05 19:17 22:59 Glucose POC Glucose 114 H 117 H 80 11/22/21 11/23/21 11/23/21 23:30 00:27 03:29 Glucose POC Glucose 114 H 102 H 115 H 11/23/21 11/23/21 11/23/21 04:23 04:30 05:27 Glucose 120 H POC Glucose 103 H 98 11/23/21 11/23/21 11/23/21 06:32 07:12 08:03 Glucose POC Glucose 106 H 103 H 103 H 11/23/21 11/23/21 09:05 10:07 Glucose POC Glucose 105 H 106 H OUTPATIENT ANTIDIABETIC REGIMEN: * n/a * A1c 6.0% ASSESSMENT: 11/23 * Pt has been maintained on IV insulin infusion since 11/21. Rate stable most of the day at 3 units/hr yesterday. Overnight rate dropped to 0.6 units/hr and stabilized on low dose rate. * D/W Dr Puente - norma to transition to SQ basal bolus despite intubation, pressors, and paralytics. OK to start SQ since doses are so low. * Will convert estimated 24hr usage of insulin (0.6 units/hr * 24 hrs) to basal insulin dose since patient NPO. Q4 hrs novolog for any stress hyperglycemia. * Pt has been requiring minimal amounts of insulin despite high dose steroids fo r COVID. 11/21 * Patient intubated overnight, now with worsening renal function, started on high dose dexamethasone 20 mg with elevation in BSGs * On heparin gtt, sedated with fentanyl, propofol, on norepinephrine and paralyzed with nimbex * Will start insulin infusion for elevated BSGs PLAN FOR INPATIENT GLYCEMIC CONTROL: * Transition off of Insulin infusion per protocol. * Give Lantus 14 units SQ x 1 dose and overlap with IV insulin infusion. Will stop IV insulin infusion when held per calculator or about 1 hr after overlap since BSGs trending below goal range. * Lantus 14 units SQ Q24hrs * NovoLog per scale Q4hrs * Goal range 110-140 mg/dl * CF = 30 mg/dl/unit * CR = 10
[2021-11-23] MEDS ORDERED: STAT IV Infusion **Titration per Protocol STA ×2 (12:28→17:43)
--- NOTE | 2021-11-23 13:01 | Hospitalist Progress Note ---
Date of Service November 23, 2021 Assessment & Plan (1) COVID-19: Plan: Acute hypoxic respiratory failure due to COVID-19 pneumonia Tested positive to COVID 19 on 10/27/21 Initially completed course of remdesivir and dexamethasone Did not meet criteria for baricitinib as patient was already admitted for more than 72 hours Acute worsening respiratory status CT PE did not show any PE but showed progression of bilateral opacities, small amount of pneumomediastinum and small bilateral pleural effusion. Currently on azithromycin. Had previously completed cefepime and doxycycline. Currently intubated. Intubated on 11/20/21 MRSA swab is negative Dexamethasone resumed Boiler Maker on board managing vent and sedation On 11/20/21, I called [facility] and spoke with Dr. Samson. We discussed patient. Unfortunately, patient is not an ECMO candidate Acute Hyponatremia FRANDY likely related to hypotension Hyponatremia improving 131 today Monitor BMP Hx DVT, Factor V Leiden Has mild edema of the left lower extremity, chronic per patient Doppler ultrasound done during this admission: nonocclusive thrombus present within the common femoral vein and the proximal to mid superficial femoral vein- chronic per Radiologist Coumadin on hold Currently on heparin drip Dyslipidemia Plan to resume Atorvastatin Code status Full code Disposition ICU Poor prognosis (2) Nausea vomiting and diarrhea: Admission and Anticipated Discharge Date Admission Date: November 03, 2021 Subjective 56-year-old man with history of hypercoagulable state (factor V Leiden mutation, recurrent blood clots) on Coumadin, hyperlipidemia who presents with cough, nausea, vomiting diarrhea Being managed for acute hypoxic respiratory failure due to COVID-[address] PE on 11/19 did not show PE but showed small pneumomediastinum as well as Progression of bilateral opacities On 11/20, patient respiratory status worsened and had to be intubated. Patient seen and examined Currently intubated and sedated Review of Systems Review of Systems: Unobtainable due to endotracheal tube Physical Exam Constitutional: Intubated ENMT: ETT in situ Respiratory: On mechanical ventilation, diminished breath sounds. S1 S2 Cardiovascular: Rate/Rhythm: regular rate and regular rhythm S1 S2 Gastrointestinal (Abdomen): normal bowel sounds, soft, nontender, no hepatosplenomegaly Musculoskeletal: left leg edema Neurologic: Intubated and sedated Genitourinary: Vaughn in situ Results & Data Results & Data ([facility]) Vital Signs (Past 12 Hours) Vital Signs Temp Pulse Resp BP Pulse Ox 11/23/21 11:30 37.2 C 100 H 23 92 11/23/21 11:26 110 H 23 93 11/23/21 11:15 37.2 C 100 H 23 94 11/23/21 11:00 37.2 C 102 H 23 95 11/23/21 10:45 37.3 C 104 H 23 93 11/23/21 10:30 37.3 C 118 H 23 109/53 L 95 11/23/21 10:15 37.4 C 102 H 23 87 L 11/23/21 10:00 37.5 C 94 H 23 94 11/23/21 09:45 37.4 C 93 H 23 85/56 L 96 11/23/21 09:30 37.4 C 99 H 23 96 11/23/21 09:15 37.4 C 96 H 23 97 11/23/21 09:00 37.4 C 95 H 23 85/55 L 96 11/23/21 08:45 37.4 C 94 H 23 85/57 L 97 11/23/21 08:30 37.4 C 91 H 23 96 11/23/21 08:15 37.4 C 90 23 96 11/23/21 08:00 37.4 C 94 H 23 96 11/23/21 07:58 110 H 11/23/21 07:45 37.4 C 97 H 23 97 11/23/21 07:30 37.4 C 98 H 23 96 11/23/21 07:15 37.3 C 102 H 23 96 11/23/21 07:00 37.3 C 97 H 23 96 11/23/21 05:45 23 94 11/23/21 04:06 23 11/23/21 04:00 99 H 104/50 L 11/23/21 03:29 82 11/23/21 02:12 109 H 20 88 L
[2021-11-23] MEDS: dexAMETHasone 20 MG in SODIUM CHLORIDE 0.9% 50 ML IV SCH (13:17)
[2021-11-23 13:19] LABS: Partial Thromboplastin Ratio 1.6; Partial Thromboplastin Time 42.3 Seconds (21.0-31.0)
--- NOTE | 2021-11-23 16:26 | Critical Care Progress Note ---
Date of Service November 23, 2021 Assessment & Plan (1) Acute hypoxemic respiratory failure due to COVID-19: (2) 2019 novel coronavirus-infected pneumonia (NCIP): (3) Factor V Leiden carrier: (4) Pneumomediastinum: Plan: CT chest 11/19/2021 personally reviewed: Diffuse patchy opacities appreciated bilaterally upper and lower lobes I do think there is a component of fibrosis to certain degree Bilateral pleural effusion small No significant mediastinal lymphadenopathy -- VDRF Likely secondary to Acute hypoxic respiratory failure Secondary to multilobar COVID-19 pneumonia Patient has very poor compliance. Continue with ventilatory support COVID-19 + 11/03/2021 No central PE on CTA 11/19/2021 CRP 34.6 Procalcitonin 0.23 NT BNP 501 Continue with lung protective ventilation High PEEP, low tidal volume to keep Plateau < 30 with permissive hypercapnea if need be. Monitor ABGs Patient was started on late DEXA ARDS protocol Patient is not a candidate for ECMO -- FRANDY Likely from initial hypotensive episode. Monitor BUN/creatinine Avoid nephrotoxic medications Strict ins and outs --S/p acute hyponatremia S/p 100 mL hypertonic saline on 11/21/2021 --Pulmonary hypertension Type III likely from pulmonary fibrosis likely developing from COVID-19 pneumonia --Pneumomediastinum Small Would recommend to avoid positive pressure ventilation if possible Try high flow the patient is able to sustain on high flow then that should be okay If it is absolutely necessary to have BiPAP/CPAP then it is okay to continue with it --History of factor Leiden deficiency Continue with heparin drip --History of dyslipidemia --Prophylaxis VTE: Heparin drip GI: Protonix Lines: Left IJ, right radial, positive Vaughn Diet: N.p.o. Plan: In/out: +2 L, urine output 1045 AB.32/65/66 on 55%, PEEP of 3 Chest x-ray from today show worsening infiltrates on the left side. If the patient is not euvolemic to negative balance by the end of the shift I will give 20 mg of Lasix Patient sodium is improving and going back to his baseline of around 130 I will try to take the paralytics off today. He is likely going to need more sedation. I would add midazolam to propofol and fentanyl which he is already on. I do not want the patient to be asynchronous or above the vent as he is very high risk for pneumothorax. Case was discussed with SENA Huston Patient's [phone] I have personally spent 38 minutes of critical care time in the direct ma nagement of this patient. This is a life/limb threatening event. This includes time spent evaluating patient, direct bedside care, chart review, placing orders, interpretation of diagnostic studies, discussion with consultants, patient, and family members, as well as other required patient management activities. This time is exclusive of all separately billable procedures, and teaching time and separate from and in addition to any other critical care service time. Please note the above document was generated using voice recognition software. It may contain grammatical, syntax or spelling errors. Admission and Anticipated Discharge Date Admission Date: November 03, 2021 Subjective Patient seen and examined at bedside. No acute distress, no adverse events ove rnight. He was on propofol and fentanyl at time of examination He was on low-dose Levophed which was being titrated off He was paralyzed. Review of Systems Review of Systems: All systems reviewed & are unremarkable except as noted in Subjective Physical Exam Physical Exam: Constitutional: No acute distress HEENT: PERRLA,malar rash Respiratory system:Decreased air entry bilaterally, no wheeze, rhonchi, positive crackles bilaterally CVS: S1-S2 positive, no murmurs or gallops Abdomen: Soft, nontender, nondistended, positive bowel sounds x4 Extremities: +2 pulses bilaterally radialis/ dorsalis pedis,no cyanosis, +1 edema LLE Neuro:Paralyzed, sedated Psych:Unable to assess G/U:Positive Vaughn Skin: no rashes, warm and dry Lymphatic: no cervical or axillary lymphadenopathy Results & Data Results & Data ([facility]) Vital Signs (Past 12 Hours) Vital Signs Temp Pulse Resp BP Pulse Ox 11/23/21 15:57 95 H 23 93 11/23/21 14:00 37.3 C 110 H 23 90 11/23/21 13:45 37.3 C 115 H 23 89 L 11/23/21 13:30 37.2 C 117 H 23 89 L 11/23/21 13:15 37.2 C 104 H 23 110/60 88 L 11/23/21 13:00 37.2 C 117 H 23 88 L 11/23/21 12:45 37.2 C 115 H 23 88 L 11/23/21 12:30 37.1 C 115 H 23 88 L 11/23/21 12:15 37.1 C 112 H 23 88 L 11/23/21 12:00 37.1 C 119 H 23 138/68 89 L 11/23/21 11:45 37.2 C 110 H 23 91 11/23/21 11:30 37.2 C 100 H 23 92 11/23/21 11:26 110 H 23 93 11/23/21 11:15 37.2 C 100 H 23 94 11/23/21 11:00 37.2 C 102 H 23 95 11/23/21 10:45 37.3 C 104 H 23 93 11/23/21 10:30 37.3 C 118 H 23 109/53 L 95 11/23/21 10:15 37.4 C 102 H 23 87 L 11/23/21 10:00 37.5 C 94 H 23 94 11/23/21 09:45 37.4 C 93 H 23 85/56 L 96 11/23/21 09:30 37.4 C 99 H 23 96 11/23/21 09:15 37.4 C 96 H 23 97 11/23/21 09:00 37.4 C 95 H 23 85/55 L 96 11/23/21 08:45 37.4 C 94 H 23 85/57 L 97 11/23/21 08:30 37.4 C 91 H 23 96 11/23/21 08:15 37.4 C 90 23 96 11/23/21 08:00 37.4 C 94 H 23 96 11/23/21 07:58 110 H 11/23/21 07:45 37.4 C 97 H 23 97 11/23/21 07:30 37.4 C 98 H 23 96 11/23/21 07:15 37.3 C 102 H 23 96 11/23/21 07:00 37.3 C 97 H 23 96 11/23/21 05:45 23 94 Laboratory Results 11/23/21 04:23 11/23/21 04:23 Coding Level of Care Code Critical Care 1st 30-74 mins Diagnoses Acute hypoxemic respiratory failure due to COVID-19 U07.1; J96.01 2019 novel coronavirus-infected pneumonia (NCIP) U07.1; J12.82 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 Time Spent (min) 38
[2021-11-23] MEDS: MIDAZOLAM HCL 125 MG/250 ML BAG IV PRN (19:00)
[2021-11-24] MEDS: CISATRACURIUM BESYLATE 40 MG in 0.9 % SODIUM CHLORIDE 80 ML IV SCH ×7 (00:31→23:10)
[2021-11-24] MEDS: ARTIFICIAL TEARS OP OINT 3.5 GM TUBE OP SCH ×7 (00:32→23:11)
[2021-11-24] MEDS: INSULIN ASPART PER UNIT SC SCH ×7 (00:32→23:23)
[2021-11-24 04:14] LABS: iSTAT Art Bld Gas pCO2 Correct 55 mmHg (35-46); iSTAT Art Bld Gas pH Corrected 7.407 (7.35-7.45); iSTAT Arterial Blood Gas HCO3 34 meg/L (19-24); iSTAT Arterial Blood Gas pCO2 54 mmHg (35-46); iSTAT Arterial Blood Gas pH 7.42 (7.35-7.45); iSTAT Arterial Blood Gas pO2 64 mmHg (80-95); iSTAT Arterial Blood Gas pO2 C 66; iSTAT Carbon Dioxide 36 mmol/L (24-31); iSTAT FiO2 55 %; iSTAT Hematocrit 33 % (42-52); iSTAT Hemoglobin 11.2 g/dl (14.0-18.0); iSTAT Potassium 3.7 mmol/L (3.3-5.0); iSTAT Site Art Line; iSTAT Sodium 131 mmol/L (135-144)
[2021-11-24] MEDS: propofoL 1,000 MG/100 ML VIAL IV SCH ×6 (04:15→22:25)
[2021-11-24] MEDS: MIDAZOLAM BOLUS FROM BAG IV PRN (05:34)
[2021-11-24] MEDS: PROPOFOL BOLUS FROM BAG IV PRN (05:35)
[2021-11-24 06:10] LABS: Hematocrit (blood only) 35.3 % (42-52); Hemoglobin 11.4 g/dL (14.0-18.0); Mean Corpuscular Hemoglobin 29.4 pg (25-34); Mean Corpuscular Hgb Conc 32.3 g/dL (32-36); Mean Platelet Volume 9.1 fL (7.4-10.4); Platelet Count 248 K/uL (130-400); RDW Coefficient of Variation 14.8 % (11.5-14.5); RDW Standard Deviation 49.9 fL (36.4-46.3); Red Blood Count 3.88 M/uL (4.7-6.1); White Blood Count 9.96 K/uL (4.8-10.8)
[2021-11-24 06:26] LABS: Partial Thromboplastin Ratio 1.4; Partial Thromboplastin Time 36.7 Seconds (21.0-31.0)
[2021-11-24 06:47] LABS: BUN Creatinine Ratio 18.5 (10-20); Calcium 8.3 mg/dl (8.5-10.1); Creatinine Clr Calc Pharmacy 56.9 ml/min; Est GFR (African American) 65.4 ml/min; Est GFR (Non-African American) 56.5 ml/min; Magnesium 2.3 mg/dl (1.8-2.4); Potassium 3.6 mmol/L (3.5-5.1)
[2021-11-24 06:48] LABS: Phosphorus 3.3 mg/dl (2.5-4.9)
[2021-11-24 06:49] LABS: Prothrombin Time 10.6 Seconds (9.0-12.0)
[2021-11-24] MEDS: HEPARIN SODIUM/DEXTROSE 25,000 UNITS/500 ML BAG IV SCH ×5 (07:15→21:13)
[2021-11-24] MEDS ORDERED: HEPARIN SOD (PORCINE) 1000 UNIT/ML IV ONE (07:50)
[2021-11-24 08:18] LABS: iSTAT Creatinine 1.5 mg/dl (0.6-1.3); iSTAT Hemoglobin 11.2 g/dl (14.0-18.0); iSTAT Ionized Calcium 1.1 mmol/l (1.12-1.32); iSTAT Potassium 3.8 mmol/L (3.3-5.0)
--- NOTE | 2021-11-24 08:28 | XRay Report ---
XR chest 1V portable HISTORY: Respiratory failure. Follow-up. COMPARISON: Chest 11/23/2021. FINDINGS: Endotracheal tube terminates approximately 1.5 cm from the james. The tip of the left jugu lar central venous catheter extends cephalad and could be within the azygos vein or right brachioceph alic vein. No pneumothorax. No pleural effusions. Bilateral patchy airspace opacities persist. These are similar to the prior study. The heart remains stable in size. IMPRESSION: 1. No change in the multifocal bilateral airspace opacities consistent with a pneumonia. 2. Endotracheal tube terminates 1.5 cm from the james. 3. Left jugular central venous catheter tip extends cephalad and is likely within the azygos vein or right brachiocephalic vein. This is similar to the prior study. ACT 112: Negative or not required by law. Electronically signed by: Bhavesh Becerra M.D. 11/24/2021 8:27 AM
[2021-11-24] MEDS: fentaNYL citrate 2,500 MCG/250 ML BAG IV SCH (08:41)
--- NOTE | 2021-11-24 08:54 | Critical Care Progress Note ---
Date of Service November 24, 2021 Assessment & Plan (1) Acute hypoxemic respiratory failure due to COVID-19: (2) 2019 novel coronavirus-infected pneumonia (NCIP): (3) Factor V Leiden carrier: (4) Pneumomediastinum: Plan: CT chest 11/19/2021 personally reviewed: Diffuse patchy opacities appreciated bilaterally upper and lower lobes I do think there is a component of fibrosis to certain degree Bilateral pleural effusion small No significant mediastinal lymphadenopathy -- VDRF Likely secondary to Acute hypoxic respiratory failure Secondary to multilobar COVID-19 pneumonia Patient has very poor compliance. Continue with ventilatory support Intubation 11/20 day 5 COVID-19 + 11/03/2021 No central PE on CTA 11/19/2021 CRP 34.6 Procalcitonin 0.23 NT BNP 501 Continue with lung protective ventilation High PEEP, low tidal volume to keep Plateau < 30 with permissive hypercapnea if need be. Monitor ABGs Patient was started on late DEXA ARDS protocol Patient is not a candidate for ECMO -- FRANDY Likely from initial hypotensive episode. Monitor BUN/creatinine Avoid nephrotoxic medications Strict ins and outs --S/p acute hyponatremia S/p 100 mL hypertonic saline on 11/21/2021 --Pulmonary hypertension Type III likely from pulmonary fibrosis likely developing from COVID-19 pneumonia --Pneumomediastinum Small --History of factor Leiden deficiency Continue with heparin drip --History of dyslipidemia --Prophylaxis VTE: Heparin drip GI: Protonix Lines: Left IJ, right radial, positive Vaughn Diet: N.p.o. Patient's [phone] Admission and Anticipated Discharge Date Admission Date: November 03, 2021 Supervising Physician Co-Signing Physician Notes I have personally spent 45 minutes of critical care time in the direct management of this patient. This is a life/limb threatening event. This includes time spent evaluating patient, direct bedside care, chart review, placing orders, interpretation of diagnostic studies, discussion with consultants, patient, and/or family members regarding treatment decisions, as well as other required patient management activities. This time is exclusive of all separately billable procedures, and teaching time and separate from and in addition to any other critical care service time. Subjective No overnight events Review of Systems Review of Systems: Unable to obtain secondary to endotracheal tube Physical Exam Physical Exam: General: Sedated. nontoxic. Skin: Warm, dry, Head: Atraumatic Ears, nose, mouth and throat: airway airway obscured by endotracheal tube Cardiovascular: Normal peripheral perfusion Respiratory: Ventilator settings reviewed Gastrointestinal: Non distended Musculoskeletal: No deformity Results & Data Results & Data ([facility]) Vital Signs (Past 12 Hours) Vital Signs Temp Pulse Resp BP Pulse Ox 11/24/21 06:52 95 H 11/24/21 06:20 37.6 C H 97 H 23 91 11/24/21 06:10 37.6 C H 95 H 23 91 11/24/21 06:00 37.6 C H 95 H 23 101/61 91 11/24/21 05:50 37.6 C H 95 H 23 90 11/24/21 05:40 37.6 C H 96 H 23 91 11/24/21 05:30 37.6 C H 96 H 23 91 11/24/21 05:20 37.6 C H 100 H 23 88 L 11/24/21 05:10 37.5 C 94 H 23 88 L 11/24/21 05:00 37.5 C 93 H 23 88 L 11/24/21 04:50 37.5 C 96 H 23 88 L 11/24/21 04:40 37.5 C 91 H 23 88 L 11/24/21 04:30 37.5 C 94 H 23 89 L 11/24/21 04:20 37.6 C H 98 H 23 89 L 11/24/21 04:10 37.6 C H 99 H 23 91 11/24/21 04:00 37.6 C H 97 H 26 H 102/51 L 94 11/24/21 03:50 37.6 C H 95 H 23 91 11/24/21 03:40 37.6 C H 98 H 23 91 11/24/21 03:30 37.6 C H 94 H 23 91/54 L 91 11/24/21 03:20 37.6 C H 95 H 23 91 11/24/21 03:10 37.6 C H 96 H 23 91 11/24/21 03:00 37.6 C H 96 H 23 98/58 L 91 11/24/21 02:50 37.5 C 96 H 23 91 11/24/21 02:46 97 H 23 92 11/24/21 02:40 37.5 C 96 H 23 91 11/24/21 02:30 37.5 C 96 H 23 91 11/24/21 02:20 37.5 C 91 H 23 92 11/24/21 02:10 37.5 C 94 H 23 91 11/24/21 02:00 37.5 C 94 H 23 91 11/24/21 01:50 37.5 C 94 H 23 91 11/24/21 01:40 37.5 C 91 H 23 91 11/24/21 01:30 37.4 C 88 23 91 11/24/21 01:20 37.4 C 94 H 23 91 11/24/21 01:10 37.4 C 95 H 23 91 11/24/21 01:00 37.4 C 94 H 23 92 11/24/21 00:50 37.4 C 94 H 23 92 11/24/21 00:40 37.4 C 94 H 23 92 11/24/21 00:30 37.4 C 93 H 23 92 11/24/21 00:20 37.4 C 94 H 23 91 11/24/21 00:10 37.5 C 87 23 88 L 11/24/21 00:00 37.4 C 94 H 23 100/63 89 L 11/23/21 23:50 37.5 C 99 H 23 89 L 11/23/21 23:40 37.5 C 97 H 23 89 L 11/23/21 23:30 37.5 C 96 H 23 89 L 11/23/21 23:20 37.5 C 97 H 89 L 11/23/21 23:10 37.5 C 96 H 23 89 L 11/23/21 23:00 37.5 C 94 H 23 98/61 L 89 L 11/23/21 22:50 37.5 C 96 H 23 89 L 11/23/21 22:40 37.5 C 91 H 23 94 11/23/21 22:38 95 H 24 91 11/23/21 22:30 37.5 C 95 H 23 90 11/23/21 22:20 37.5 C 96 H 23 91 11/23/21 22:10 37.5 C 93 H 23 91 Laboratory Results 11/24/21 11/24/21 11/24/21 Range/Units 07:58 05:44 05:44 WBC (4.8-10.8) K/uL RBC (4.7-6.1) M/uL Hgb (14.0-18.0) g/dL POC Hgb 11.2 L (14.0-18.0) g/dl Hct (42-52) % POC Hct 33 L (42-52) % MCV (80-100) fL MCH (25-34) pg MCHC (32-36) g/dL RDW Std Deviation (36.4-46.3) fL RDW Coeff of Robby (11.5-14.5) % Plt Count (130-400) K/uL MPV (7.4-10.4) fL PT 10.6 INR 1.0 APTT 36.7 H (21.0-31.0) Seconds PTT Ratio 1.4 Sample Site POC pH (7.35-7.45) POC pCO2 (35-46) mmHg POC pO2 (80-95) mmHg POC HCO3 (19-24) feliz/L POC Total CO2 31 (24-31) mmol/L POC Base Excess (-9-1.8) feliz/L ABG pH (Temp Correct) (7.35-7.45) ABG pCO2 (Temp Corrct (35-46) mmHg POC ABG pO2 at Pt Temp POC ABG O2 Sat (90-95) % Francisco Test O2 Delivery Device POC O2 Rate POC FiO2 % Tidal Volume PEEP POC Sodium 129 L (135-144) mmol/L Sodium 132 L (136-145) mmol/L POC Potassium 3.8 (3.3-5.0) mmol/L Potassium 3.6 (3.5-5.1) mmol/L POC Chloride 92 L (101-112) mmol/L Chloride 95 L (98-107) mmol/L Carbon Dioxide 31 (21-32) mmol/L Anion Gap 6.0 (3-11) POC Anion Gap 11.0 L (16-25) mmol/L POC BUN 26 H (7-18) mg/dl BUN 25 H (7-18) mg/dl Creatinine 1.37 (0.6-1.4) mg/dl POC Creatinine 1.5 H (0.6-1.3) mg/dl Est Cr Clr Drug Dosing 56.9 ml/min Est GFR ( Amer) 65.4 ml/min Est GFR (Non-Af Amer) 56.5 ml/min BUN/Creatinine Ratio 18.5 (10-20) Glucose 121 H (70-99) mg/dl POC Glucose (70-99) mg/dl POC Glucose (other) 134 H (70-99) mg/dl Calcium 8.3 L (8.5-10.1) mg/dl POC Ioniz Calcium Mahendra 1.10 L (1.12-1.32) mmol/l Phosphorus 3.3 (2.5-4.9) mg/dl Magnesium 2.3 (1.8-2.4) mg/dl 11/24/21 11/24/21 11/24/21 Range/Units 05:44 05:44 04:37 WBC 9.96 (4.8-10.8) K/uL RBC 3.88 L (4.7-6.1) M/uL Hgb 11.4 L (14.0-18.0) g/dL POC Hgb (14.0-18.0) g/dl Hct 35.3 L (42-52) % POC Hct (42-52) % MCV 91.0 (80-100) fL MCH 29.4 (25-34) pg MCHC 32.3 (32-36) g/dL RDW Std Deviation 49.9 H (36.4-46.3) fL RDW Coeff of Robby 14.8 H (11.5-14.5) % Plt Count 248 (130-400) K/uL MPV 9.1 (7.4-10.4) fL PT Cancelled INR Cancelled APTT (21.0-31.0) Seconds PTT Ratio Sample Site POC pH (7.35-7.45) POC pCO2 (35-46) mmHg POC pO2 (80-95) mmHg POC HCO3 (19-24) feliz/L POC Total CO2 (24-31) mmol/L POC Base Excess (-9-1.8) feliz/L ABG pH (Temp Correct) (7.35-7.45) ABG pCO2 (Temp Corrct (35-46) mmHg POC ABG pO2 at Pt Temp POC ABG O2 Sat (90-95) % Francisco Test O2 Delivery Device POC O2 Rate POC FiO2 % Tidal Volume PEEP POC Sodium (135-144) mmol/L Sodium (136-145) mmol/L POC Potassium (3.3-5.0) mmol/L Potassium (3.5-5.1) mmol/L POC Chloride (101-112) mmol/L Chloride (98-107) mmol/L Carbon Dioxide (21-32) mmol/L Anion Gap (3-11) POC Anion Gap (16-25) mmol/L POC BUN (7-18) mg/dl BUN (7-18) mg/dl Creatinine (0.6-1.4) mg/dl POC Creatinine (0.6-1.3) mg/dl Est Cr Clr Drug Dosing ml/min Est GFR ( Amer) ml/min Est GFR (Non-Af Amer) ml/min BUN/Creatinine Ratio (10-20) Glucose (70-99) mg/dl POC Glucose 110 H (70-99) mg/dl POC Glucose (other) (70-99) mg/dl Calcium (8.5-10.1) mg/dl POC Ioniz Calcium Mahendra (1.12-1.32) mmol/l Phosphorus (2.5-4.9) mg/dl Magnesium (1.8-2.4) mg/dl 11/24/21 11/24/21 11/23/21 Range/Units 03:59 00:02 20:14 WBC (4.8-10.8) K/uL RBC (4.7-6.1) M/uL Hgb (14.0-18.0) g/dL POC Hgb 11.2 L (14.0-18.0) g/dl Hct (42-52) % POC Hct 33 L (42-52) % MCV (80-100) fL MCH (25-34) pg MCHC (32-36) g/dL RDW Std Deviation (36.4-46.3) fL RDW Coeff of Robby (11.5-14.5) % Plt Count (130-400) K/uL MPV (7.4-10.4) fL PT INR APTT (21.0-31.0) Seconds PTT Ratio Sample Site Art Line POC pH 7.42 (7.35-7.45) POC pCO2 54 H (35-46) mmHg POC pO2 64 L (80-95) mmHg POC HCO3 34 H (19-24) feliz/L POC Total CO2 36 H (24-31) mmol/L POC Base Excess 10.0 H (-9-1.8) feliz/L ABG pH (Temp Correct) 7.407 (7.35-7.45) ABG pCO2 (Temp Corrct 55 H (35-46) mmHg POC ABG pO2 at Pt Temp 66 POC ABG O2 Sat 92.0 (90-95) % Francisco Test NA O2 Delivery Device Ventilator POC O2 Rate 23 POC FiO2 55 % Tidal Volume 390 PEEP 3 POC Sodium 131 L (135-144) mmol/L Sodium (136-145) mmol/L POC Potassium 3.7 (3.3-5.0) mmol/L Potassium (3.5-5.1) mmol/L POC Chloride (101-112) mmol/L Chloride (98-107) mmol/L Carbon Dioxide (21-32) mmol/L Anion Gap (3-11) POC Anion Gap (16-25) mmol/L POC BUN (7-18) mg/dl BUN (7-18) mg/dl Creatinine (0.6-1.4) mg/dl POC Creatinine (0.6-1.3) mg/dl Est Cr Clr Drug Dosing ml/min Est GFR ( Amer) ml/min Est GFR (Non-Af Amer) ml/min BUN/Creatinine Ratio (10-20) Glucose (70-99) mg/dl POC Glucose 107 H 107 H (70-99) mg/dl POC Glucose (other) (70-99) mg/dl Calcium (8.5-10.1) mg/dl POC Ioniz Calcium Mahendra (1.12-1.32) mmol/l Phosphorus (2.5-4.9) mg/dl Magnesium (1.8-2.4) mg/dl 11/23/21 11/23/21 11/23/21 Range/Units 16:44 12:47 11:27 WBC (4.8-10.8) K/uL RBC (4.7-6.1) M/uL Hgb (14.0-18.0) g/dL POC Hgb (14.0-18.0) g/dl Hct (42-52) % POC Hct (42-52) % MCV (80-100) fL MCH (25-34) pg MCHC (32-36) g/dL RDW Std Deviation (36.4-46.3) fL RDW Coeff of Robby (11.5-14.5) % Plt Count (130-400) K/uL MPV (7.4-10.4) fL PT INR APTT 42.3 H (21.0-31.0) Seconds PTT Ratio 1.6 Sample Site POC pH (7.35-7.45) POC pCO2 (35-46) mmHg POC pO2 (80-95) mmHg POC HCO3 (19-24) feliz/L POC Total CO2 (24-31) mmol/L POC Base Excess (-9-1.8) feliz/L ABG pH (Temp Correct) (7.35-7.45) ABG pCO2 (Temp Corrct (35-46) mmHg POC ABG pO2 at Pt Temp POC ABG O2 Sat (90-95) % Francisco Test O2 Delivery Device POC O2 Rate POC FiO2 % Tidal Volume PEEP POC Sodium (135-144) mmol/L Sodium (136-145) mmol/L POC Potassium (3.3-5.0) mmol/L Potassium (3.5-5.1) mmol/L POC Chloride (101-112) mmol/L Chloride (98-107) mmol/L Carbon Dioxide (21-32) mmol/L Anion Gap (3-11) POC Anion Gap (16-25) mmol/L POC BUN (7-18) mg/dl BUN (7-18) mg/dl Creatinine (0.6-1.4) mg/dl POC Creatinine (0.6-1.3) mg/dl Est Cr Clr Drug Dosing ml/min Est GFR ( Amer) ml/min Est GFR (Non-Af Amer) ml/min BUN/Creatinine Ratio (10-20) Glucose (70-99) mg/dl POC Glucose 121 H 91 (70-99) mg/dl POC Glucose (other) (70-99) mg/dl Calcium (8.5-10.1) mg/dl POC Ioniz Calcium Mahendra (1.12-1.32) mmol/l Phosphorus (2.5-4.9) mg/dl Magnesium (1.8-2.4) mg/dl 11/23/21 11/23/21 Range/Units 10:07 09:05 WBC (4.8-10.8) K/uL RBC (4.7-6.1) M/uL Hgb (14.0-18.0) g/dL POC Hgb (14.0-18.0) g/dl Hct (42-52) % POC Hct (42-52) % MCV (80-100) fL MCH (25-34) pg MCHC (32-36) g/dL RDW Std Deviation (36.4-46.3) fL RDW Coeff of Robby (11.5-14.5) % Plt Count (130-400) K/uL MPV (7.4-10.4) fL PT INR APTT (21.0-31.0) Seconds PTT Ratio Sample Site POC pH (7.35-7.45) POC pCO2 (35-46) mmHg POC pO2 (80-95) mmHg POC HCO3 (19-24) feliz/L POC Total CO2 (24-31) mmol/L POC Base Excess (-9-1.8) feliz/L ABG pH (Temp Correct) (7.35-7.45) ABG pCO2 (Temp Corrct (35-46) mmHg POC ABG pO2 at Pt Temp POC ABG O2 Sat (90-95) % Francisco Test O2 Delivery Device POC O2 Rate POC FiO2 % Tidal Volume PEEP POC Sodium (135-144) mmol/L Sodium (136-145) mmol/L POC Potassium (3.3-5.0) mmol/L Potassium (3.5-5.1) mmol/L POC Chloride (101-112) mmol/L Chloride (98-107) mmol/L Carbon Dioxide (21-32) mmol/L Anion Gap (3-11) POC Anion Gap (16-25) mmol/L POC BUN (7-18) mg/dl BUN (7-18) mg/dl Creatinine (0.6-1.4) mg/dl POC Creatinine (0.6-1.3) mg/dl Est Cr Clr Drug Dosing ml/min Est GFR ( Amer) ml/min Est GFR (Non-Af Amer) ml/min BUN/Creatinine Ratio (10-20) Glucose (70-99) mg/dl POC Glucose 106 H 105 H (70-99) mg/dl POC Glucose (other) (70-99) mg/dl Calcium (8.5-10.1) mg/dl POC Ioniz Calcium Mahendra (1.12-1.32) mmol/l Phosphorus (2.5-4.9) mg/dl Magnesium (1.8-2.4) mg/dl Coding Level of Care Code Critical Care 1st 30-74 mins Diagnoses Acute hypoxemic respiratory failure due to COVID-19 U07.1; J96.01 2019 novel coronavirus-infected pneumonia (NCIP) U07.1; J12.82 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
[2021-11-24] MEDS: PANTOprazole 40 MG in SYRINGE 0 ML IV SCH ×2 (09:23→20:41)
[2021-11-24] MEDS: AZITHROMYCIN 500 MG in DEXTROSE 5% 250 ML IV SCH (09:23)
[2021-11-24] MEDS: dexAMETHasone 20 MG in SODIUM CHLORIDE 0.9% 50 ML IV SCH (12:21)
--- NOTE | 2021-11-24 12:49 | Hospitalist Progress Note ---
Date of Service November 24, 2021 Assessment & Plan (1) COVID-19: Plan: Acute hypoxic respiratory failure due to COVID-19 pneumonia Tested positive to COVID 19 on 10/27/21 Initially completed course of remdesivir and dexamethasone Did not meet criteria for baricitinib as patient was already admitted for more than 72 hours Acute worsening respiratory status CT PE did not show any PE but showed progression of bilateral opacities, small amount of pneumomediastinum and small bilateral pleural effusion. Currently on azithromycin. Had previously completed cefepime and doxycycline. Currently intubated. Intubated on 11/20/21 On 11/20/21, I called [facility] and spoke with Dr. Samson. We discussed patient. Unfortunately, patient is not an ECMO candidate MRSA swab is negative Dexamethasone resumed Bias Binding Cutter on board managing vent and sedation Acute Hyponatremia FRANDY likely related to hypotension Hyponatremia improving 132 today Monitor BMP Hx DVT, Factor V Leiden Has mild edema of the left lower extremity, chronic per patient Doppler ultrasound done during this admission: nonocclusive thrombus present within the common femoral vein and the proximal to mid superficial femoral vein- chronic per Radiologist Coumadin on hold Currently on heparin drip Dyslipidemia Plan to resume Atorvastatin Code status Full code Disposition ICU Poor prognosis (2) Nausea vomiting and diarrhea: Admission and Anticipated Discharge Date Admission Date: November 03, 2021 Subjective 56-year-old man with history of hypercoagulable state (factor V Leiden mutation, recurrent blood clots) on Coumadin, hyperlipidemia who presents with cough, nausea, vomiting diarrhea Being managed for acute hypoxic respiratory failure due to COVID-[address] PE on 11/19 did not show PE but showed small pneumomediastinum as well as progression of bilateral opacities On 11/20, patient respiratory status worsened and had to be intubated. Patient seen and examined Currently intubated and sedated Review of Systems Review of Systems: Unobtainable due to endotracheal tube Physical Exam Constitutional: Intubated and sedated ENMT: ETT/OGT in situ Respiratory: On mechanical ventilation. Diminished breath sounds. Cardiovascular: Rate/Rhythm: regular rate and regular rhythm S1-S2 Gastrointestinal (Abdomen): Soft, nondistended, positive bowel sounds Musculoskeletal: Left leg edema. Neurologic: Intubated and sedated Genitourinary: Vaughn in situ Results & Data Results & Data ([facility]) Vital Signs (Past 12 Hours) Vital Signs Temp Pulse Resp BP Pulse Ox 11/24/21 11:30 37.5 C 102 H 23 98/67 L 90 11/24/21 11:15 37.5 C 101 H 23 91 11/24/21 11:05 103 H 23 90 11/24/21 11:00 37.5 C 102 H 101/67 88 L 11/24/21 10:45 37.5 C 102 H 88 L 11/24/21 10:30 37.5 C 101 H 104/64 87 L 11/24/21 10:15 37.5 C 104 H 97/67 L 87 L 11/24/21 10:00 37.5 C 102 H 23 108/68 87 L 11/24/21 09:45 37.5 C 104 H 107/68 87 L 11/24/21 09:30 37.5 C 104 H 107/71 86 L 11/24/21 09:20 37.6 C H 105 H 87 L 11/24/21 09:10 37.6 C H 101 H 23 87 L 11/24/21 09:00 37.6 C H 100 H 23 87 L 11/24/21 08:50 37.6 C H 101 H 23 87 L 11/24/21 08:40 37.7 C H 100 H 23 87 L 11/24/21 08:30 37.7 C H 99 H 23 100/59 L 85 L 11/24/21 08:00 37.6 C H 100 H 23 79/53 L 82 L 11/24/21 07:50 37.6 C H 102 H 23 97 11/24/21 07:30 37.6 C H 99 H 23 106/64 95 11/24/21 07:00 37.5 C 98 H 23 90 11/24/21 06:52 95 H 11/24/21 06:50 37.5 C 100 H 23 91 11/24/21 06:45 37.5 C 94 H 23 90 11/24/21 06:20 37.6 C H 97 H 23 91 11/24/21 06:10 37.6 C H 95 H 23 91 11/24/21 06:00 37.6 C H 95 H 23 101/61 91 11/24/21 05:50 37.6 C H 95 H 23 90 11/24/21 05:40 37.6 C H 96 H 23 91 11/24/21 05:30 37.6 C H 96 H 23 91 11/24/21 05:20 37.6 C H 100 H 23 88 L 11/24/21 05:10 37.5 C 94 H 23 88 L 11/24/21 05:00 37.5 C 93 H 23 88 L 11/24/21 04:50 37.5 C 96 H 23 88 L 11/24/21 04:40 37.5 C 91 H 23 88 L 11/24/21 04:30 37.5 C 94 H 23 89 L 11/24/21 04:20 37.6 C H 98 H 23 89 L 11/24/21 04:10 37.6 C H 99 H 23 91 11/24/21 04:00 37.6 C H 97 H 26 H 102/51 L 94 11/24/21 03:50 37.6 C H 95 H 23 91 11/24/21 03:40 37.6 C H 98 H 23 91 11/24/21 03:30 37.6 C H 94 H 23 91/54 L 91 11/24/21 03:20 37.6 C H 95 H 23 91 11/24/21 03:10 37.6 C H 96 H 23 91 11/24/21 03:00 37.6 C H 96 H 23 98/58 L 91 11/24/21 02:50 37.5 C 96 H 23 91 11/24/21 02:46 97 H 23 92 11/24/21 02:40 37.5 C 96 H 23 91 11/24/21 02:30 37.5 C 96 H 23 91 11/24/21 02:20 37.5 C 91 H 23 92 11/24/21 02:10 37.5 C 94 H 23 91 11/24/21 02:00 37.5 C 94 H 23 91 11/24/21 01:50 37.5 C 94 H 23 91 11/24/21 01:40 37.5 C 91 H 23 91 11/24/21 01:30 37.4 C 88 23 91 11/24/21 01:20 37.4 C 94 H 23 91 11/24/21 01:10 37.4 C 95 H 23 91 11/24/21 01:00 37.4 C 94 H 23 92 11/24/21 00:50 37.4 C 94 H 23 92
[2021-11-24 14:40] LABS: Partial Thromboplastin Ratio 1.6; Partial Thromboplastin Time 42.4 Seconds (21.0-31.0)
[2021-11-24 15:05] LABS: iSTAT Art Bld Gas pCO2 Correct 61 mmHg (35-46); iSTAT Art Bld Gas pH Corrected 7.359 (7.35-7.45); iSTAT Arterial Blood Gas HCO3 35 meg/L (19-24); iSTAT Arterial Blood Gas pCO2 61 mmHg (35-46); iSTAT Arterial Blood Gas pH 7.36 (7.35-7.45); iSTAT Arterial Blood Gas pO2 72 mmHg (80-95); iSTAT Arterial Blood Gas pO2 C 72; iSTAT Carbon Dioxide 36 mmol/L (24-31); iSTAT FiO2 55 %; iSTAT Hematocrit 35 % (42-52); iSTAT Hemoglobin 11.9 g/dl (14.0-18.0); iSTAT Site Art Line; iSTAT Sodium 132 mmol/L (135-144)
[2021-11-24] MEDS: PEPTAMEN INTENSE VHP 1.0 CAL 1,000 ML BAG OG SCH (16:30)
[2021-11-24] MEDS: NOREPINEPHRINE/D5W 8 MG/508 ML BAG IV SCH ×3 (17:56→21:14)
[2021-11-24 21:11] LABS: Partial Thromboplastin Ratio 1.9
[2021-11-24 21:15] LABS: Partial Thromboplastin Time 50.1 Seconds (21.0-31.0)
[2021-11-24 21:27] LABS: iSTAT Creatinine 1.3 mg/dl (0.6-1.3); iSTAT Hemoglobin 11.6 g/dl (14.0-18.0); iSTAT Ionized Calcium 1.21 mmol/l (1.12-1.32); iSTAT Potassium 4.3 mmol/L (3.3-5.0)
[2021-11-25] MEDS: propofoL 1,000 MG/100 ML VIAL IV SCH ×6 (02:13→23:58)
[2021-11-25] MEDS: CISATRACURIUM BESYLATE 40 MG in 0.9 % SODIUM CHLORIDE 80 ML IV SCH ×3 (02:14→08:26)
[2021-11-25] MEDS: INSULIN ASPART PER UNIT SC SCH ×5 (04:00→20:01)
[2021-11-25] MEDS: ARTIFICIAL TEARS OP OINT 3.5 GM TUBE OP SCH ×2 (04:01→08:20)
[2021-11-25 04:13] LABS: iSTAT Art Bld Gas pCO2 Correct 52 mmHg (35-46); iSTAT Art Bld Gas pH Corrected 7.435 (7.35-7.45); iSTAT Arterial Blood Gas HCO3 35 meg/L (19-24); iSTAT Arterial Blood Gas pCO2 53 mmHg (35-46); iSTAT Arterial Blood Gas pH 7.43 (7.35-7.45); iSTAT Arterial Blood Gas pO2 60 mmHg (80-95); iSTAT Arterial Blood Gas pO2 C 58; iSTAT Carbon Dioxide 36 mmol/L (24-31); iSTAT FiO2 55 %; iSTAT Hematocrit 33 % (42-52); iSTAT Hemoglobin 11.2 g/dl (14.0-18.0); iSTAT Potassium 4.3 mmol/L (3.3-5.0); iSTAT Site Art Line; iSTAT Sodium 134 mmol/L (135-144)
[2021-11-25] MEDS: MIDAZOLAM HCL 125 MG/250 ML BAG IV PRN (04:13)
[2021-11-25 06:36] LABS: Hematocrit (blood only) 34.7 % (42-52); Hemoglobin 11.5 g/dL (14.0-18.0); Mean Corpuscular Hemoglobin 29.6 pg (25-34); Mean Corpuscular Hgb Conc 33.1 g/dL (32-36); Mean Corpuscular Volume 89.4 fL (80-100); Mean Platelet Volume 9.5 fL (7.4-10.4); Platelet Count 259 K/uL (130-400); RDW Coefficient of Variation 14.6 % (11.5-14.5); RDW Standard Deviation 47.3 fL (36.4-46.3); Red Blood Count 3.88 M/uL (4.7-6.1); White Blood Count 9.77 K/uL (4.8-10.8)
[2021-11-25 06:58] LABS: Partial Thromboplastin Ratio 2.1
[2021-11-25 06:59] LABS: Partial Thromboplastin Time 54.7 Seconds (21.0-31.0)
[2021-11-25 07:02] LABS: BUN Creatinine Ratio 19.6 (10-20); Calcium 8.5 mg/dl (8.5-10.1); Creatinine Clr Calc Pharmacy 63.9 ml/min; Est GFR (African American) 75.3 ml/min; Est GFR (Non-African American) 64.9 ml/min; Magnesium 2.5 mg/dl (1.8-2.4); Phosphorus 3.5 mg/dl (2.5-4.9)
[2021-11-25 07:09] LABS: Prothrombin Time 10.3 Seconds (9.0-12.0)
--- NOTE | 2021-11-25 07:45 | XRay Report ---
XR chest 1V portable CLINICAL HISTORY: Follow-up bilateral airspace opacities. COMPARISON STUDY: 11/24/2021 TECHNIQUE: 1 view of the chest FINDINGS: Single frontal view of the chest demonstrates the cardiomediastinal silhouette to be within normal li mits. Tubes and catheters appear unchanged. Compared to previous examination, bilateral interstitial and alveolar airspace opacities are again seen, left greater than right. The findings are essentially unchanged. Minimal blunting of the costophrenic angles is also seen bilaterally and small bilateral pleural effusions cannot be excluded. There is no evidence for vascular congestion. There is no acute osseous pathology. IMPRESSION: No significant interval change in bilateral interstitial and alveolar opacities, left gre ater than right. There is also suspicion of small bilateral pleural effusions. ACT 112: Negative or not required by law. Electronically signed by: El Rebolledo M.D. 11/25/2021 7:43 AM
[2021-11-25] MEDS: PANTOprazole 40 MG in SYRINGE 0 ML IV SCH ×2 (08:19→21:00)
[2021-11-25] MEDS: dexAMETHasone 10 MG in SYRINGE 0 ML IV SCH (08:19)
[2021-11-25] MEDS: HEPARIN SODIUM/DEXTROSE 25,000 UNITS/500 ML BAG IV SCH (09:46)
--- NOTE | 2021-11-25 10:02 | Critical Care Progress Note ---
Date of Service November 25, 2021 Assessment & Plan (1) Acute hypoxemic respiratory failure due to COVID-19: (2) 2019 novel coronavirus-infected pneumonia (NCIP): (3) Factor V Leiden carrier: (4) Pneumomediastinum: Plan: CT chest 11/19/2021 personally reviewed: Diffuse patchy opacities appreciated bilaterally upper and lower lobes I do think there is a component of fibrosis to certain degree Bilateral pleural effusion small No significant mediastinal lymphadenopathy -- VDRF Likely secondary to Acute hypoxic respiratory failure Secondary to multilobar COVID-19 pneumonia Patient has very poor compliance. Continue with ventilatory support Intubation 11/20 day 6 COVID-19 + 11/03/2021 No central PE on CTA 11/19/2021 CRP 34.6 Procalcitonin 0.23 NT BNP 501 Continue with lung protective ventilation High PEEP, low tidal volume to keep Plateau < 30 with permissive hypercapnea if need be. Monitor ABGs Patient was started on late DEXA ARDS protocol Patient is not a candidate for ECMO -- FRANYD: Resolved Likely from initial hypotensive episode. Monitor BUN/creatinine Avoid nephrotoxic medications Strict ins and outs --S/p acute hyponatremia: Resolved S/p 100 mL hypertonic saline on 11/21/2021 --Pulmonary hypertension Type III likely from pulmonary fibrosis likely developing from COVID-19 pne umonia --Pneumomediastinum Small --History of factor Leiden deficiency Continue with heparin drip --History of dyslipidemia --Prophylaxis VTE: Heparin drip GI: Protonix Lines: Left IJ, right radial, positive Vaughn Diet: Tube feedings. Patient's [phone] Had discussion with regards to prognosis, at this time we will proceed with tracheostomy when safe. Continue current level medical/life support, however in event of cardiac arrest will not undergo heroic measures DNR in event of cardiac arrest Admission and Anticipated Discharge Date Admission Date: November 03, 2021 Supervising Physician Co-Signing Physician Notes I have personally spent 55 minutes of critical care time in the direct management of this patient. This is a life/limb threatening event. This includes time spent evaluating patient, direct bedside care, chart review, placing orders, interpretation of diagnostic studies, discussion with consultants, patient, and/or family members regarding treatment decisions, as well as other required patient management activities. This time is exclusive of all separately billable procedures, and teaching time and separate from and in addition to any other critical care service time. Subjective No overnight events Physical Exam Physical Exam: General: Sedated. nontoxic. Skin: Warm, dry, Head: Atraumatic Ears, nose, mouth and throat: airway airway obscured by endotracheal tube Cardiovascular: Normal peripheral perfusion Respiratory: Ventilator settings reviewed Gastrointestinal: Non distended Musculoskeletal: No deformity Results & Data Results & Data ([facility]) Vital Signs (Past 12 Hours) Vital Signs Temp Pulse Resp BP Pulse Ox 11/25/21 10:01 62 26 H 92 11/25/21 08:32 58 L 11/25/21 07:23 62 27 H 92 11/25/21 04:00 59 L 111/57 L 11/25/21 02:40 75 27 H 90 11/25/21 02:00 36.5 C 61 26 H 108/64 92 11/25/21 01:50 36.4 C L 62 26 H 92 11/25/21 01:45 36.4 C L 63 26 H 107/60 92 11/25/21 01:41 67 11/25/21 01:40 36.4 C L 65 26 H 92 11/25/21 01:30 36.4 C L 66 26 H 103/58 L 92 11/25/21 01:20 36.4 C L 65 26 H 92 11/25/21 01:15 36.4 C L 65 26 H 103/62 91 11/25/21 01:10 36.4 C L 65 26 H 92 11/25/21 01:00 36.4 C L 63 26 H 104/60 92 11/25/21 00:50 36.4 C L 63 26 H 92 11/25/21 00:45 36.4 C L 62 26 H 105/61 92 11/25/21 00:40 36.4 C L 63 26 H 92 11/25/21 00:30 36.5 C 59 L 26 H 101/61 92 11/25/21 00:20 36.5 C 64 26 H 91 11/25/21 00:15 36.5 C 63 26 H 111/62 90 11/25/21 00:10 36.5 C 61 26 H 90 11/25/21 00:00 36.5 C 63 26 H 111/65 90 11/24/21 23:50 36.5 C 63 26 H 90 12/27/21 23:45 36.5 C 62 26 H 113/64 90 11/24/21 23:40 36.6 C 66 26 H 90 11/24/21 23:30 36.6 C 64 26 H 111/65 90 11/24/21 23:20 36.6 C 66 26 H 90 11/24/21 23:15 36.6 C 64 26 H 106/64 90 11/24/21 23:10 36.6 C 66 26 H 90 11/24/21 23:00 36.6 C 64 26 H 104/65 90 11/24/21 22:50 36.6 C 68 26 H 91 11/24/21 22:45 36.6 C 65 26 H 112/64 90 11/24/21 22:40 36.6 C 68 26 H 91 11/24/21 22:30 36.6 C 67 26 H 112/63 90 11/24/21 22:20 36.6 C 70 26 H 90 11/24/21 22:15 36.6 C 67 26 H 105/65 90 11/24/21 22:10 36.6 C 69 26 H 90 Coding Level of Care Code Critical Care 1st 30-74 mins Diagnoses Acute hypoxemic respiratory failure due to COVID-19 U07.1; J96.01 2019 novel coronavirus-infected pneumonia (NCIP) U07.1; J12.82 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
[2021-11-25] MEDS ORDERED: [UNRECOGNIZED DRUG - REMARK] ONE (12:00)
--- NOTE | 2021-11-25 12:14 | Hospitalist Progress Note ---
Date of Service November 25, 2021 Assessment & Plan (1) COVID-19: Plan: Acute hypoxic respiratory failure due to COVID-19 pneumonia Tested positive to COVID 19 on 10/27/21 Initially completed course of remdesivir and dexamethasone Did not meet criteria for baricitinib as patient was already admitted for more than 72 hours Acute worsening respiratory status CT PE did not show any PE but showed progression of bilateral opacities, small amount of pneumomediastinum and small bilateral pleural effusion. Currently on azithromycin. Had previously completed cefepime and doxycycline. Currently intubated. Intubated on 11/20/21 On 11/20/21, I called [facility] and spoke with Dr. Samson. We discussed patient. Unfortunately, patient is not an ECMO candidate MRSA swab is negative Dexamethasone resumed Fret Saw Operator on board managing vent and sedation Acute Hyponatremia FRANDY likely related to hypotension Hyponatremia improving 134 today Monitor BMP Hx DVT, Factor V Leiden Has mild edema of the left lower extremity, chronic per patient Doppler ultrasound done during this admission: nonocclusive thrombus present within the common femoral vein and the proximal to mid superficial femoral vein- chronic per Radiologist Coumadin on hold Heparin changed to therapeutic lovenox Dyslipidemia Plan to resume Atorvastatin on dc Disposition ICU Poor prognosis called and updated. reported as she already discussed with the winter sports manager and will likely proceed with tracheostomy at some point. (2) Nausea vomiting and diarrhea: Admission and Anticipated Discharge Date Admission Date: November 03, 2021 Subjective 56 year old man with h/o hypertension, hyperlipidemia, chronic back pain, mood disorder/PTSD, past tobacco abuse who presented with cough and shortness of breath Managed for acute hypoxic respiratory failure due to COVID-19 pneumonia. Completed COVID-19 specific therapies and antibiotics Intubated on 11/21/21. Azithromycin started. Dexamethasone was resumed Currently sedated Review of Systems Review of Systems: Unobtainable due to endotracheal tube Physical Exam Constitutional: Intubated and sedated ENMT: ET tube in situ Respiratory: On mechanical ventilation Diminished breath sounds Cardiovascular: Rate/Rhythm: regular rate and regular rhythm S1-S2 Gastrointestinal (Abdomen): Soft, nondistended, bowel sounds present Musculoskeletal: Left leg edema Neurologic: Intubated and sedated Genitourinary: Vaughn in situ Results & Data Results & Data ([facility]) Vital Signs (Past 12 Hours) Vital Signs Temp Pulse Pulse Resp BP BP Pulse Ox 11/25/21 10:38 36.3 C L 63 26 H 96/52 L 92 11/25/21 10:37 36.2 C L 66 26 H 91/50 L 94 11/25/21 10:35 36.3 C L 57 L 18 100/61 92 11/25/21 10:01 62 26 H 92 11/25/21 08:32 58 L 11/25/21 07:23 62 27 H 92 11/25/21 05:15 36.3 C L 59 L 26 H 100/65 91 11/25/21 05:00 36.4 C L 61 26 H 100/63 91 11/25/21 04:45 36.4 C L 59 L 26 H 100/62 91 11/25/21 04:30 36.4 C L 59 L 26 H 97/63 L 91 11/25/21 04:15 36.5 C 62 26 H 96/63 L 90 11/25/21 04:00 36.5 C 66 26 H 93/59 L 89 L 11/25/21 03:45 36.4 C L 68 26 H 99/62 L 92 11/25/21 03:30 36.5 C 72 26 H 101/61 92 11/25/21 03:15 36.4 C L 71 26 H 101/62 92 11/25/21 03:00 36.4 C L 71 26 H 104/64 91 11/25/21 02:45 36.4 C L 72 26 H 104/64 90 11/25/21 02:40 75 27 H 90 11/25/21 02:30 36.4 C L 73 26 H 104/63 89 L 11/25/21 02:15 36.5 C 64 26 H 111/65 90 11/25/21 02:00 36.5 C 61 26 H 108/64 92 11/25/21 01:50 36.4 C L 62 26 H 92 11/25/21 01:45 36.4 C L 63 26 H 107/60 92 11/25/21 01:41 67 11/25/21 01:40 36.4 C L 65 26 H 92 11/25/21 01:30 36.4 C L 66 26 H 103/58 L 92 11/25/21 01:20 36.4 C L 65 26 H 92 11/25/21 01:15 36.4 C L 65 26 H 103/62 91 11/25/21 01:10 36.4 C L 65 26 H 11/25/21 01:00 36.4 C L 63 26 H 104/60 92 11/25/21 00:50 36.4 C L 63 26 H 92 11/25/21 00:45 36.4 C L 62 26 H 105/61 92 11/25/21 00:40 36.4 C L 63 26 H 11/25/21 00:30 36.5 C 59 L 26 H 101/61 92 11/25/21 00:20 36.5 C 64 26 H 91 11/25/21 00:15 36.5 C 63 26 H 111/62 90 Laboratory Results Abnormal lab results 11/24/21 11/24/21 11/24/21 Range/Units 14:47 16:23 20:33 RBC (4.7-6.1) M/uL Hgb (14.0-18.0) g/dL POC Hgb 11.9 L (14.0-18.0) g/dl Hct (42-52) % POC Hct 35 L (42-52) % RDW Std Deviation (36.4-46.3) fL RDW Coeff of Robby (11.5-14.5) % APTT 50.1 H* (21.0-31.0) Seconds POC pCO2 61 H (35-46) mmHg POC pO2 72 L (80-95) mmHg POC HCO3 35 H (19-24) feliz/L POC Total CO2 36 H (24-31) mmol/L POC Base Excess 9.0 H (-9-1.8) feliz/L ABG pCO2 (Temp Corrct 61 H (35-46) mmHg POC Sodium 132 L (135-144) mmol/L POC Chloride (101-112) mmol/L POC Anion Gap (16-25) mmol/L POC BUN (7-18) mg/dl BUN (7-18) mg/dl Glucose (70-99) mg/dl POC Glucose (70-99) mg/dl POC Glucose (other) 184 H (70-99) mg/dl Magnesium (1.8-2.4) mg/dl 11/24/21 11/24/21 11/24/21 Range/Units 20:34 21:10 23:19 RBC (4.7-6.1) M/uL Hgb (14.0-18.0) g/dL POC Hgb 11.6 L (14.0-18.0) g/dl Hct (42-52) % POC Hct 34 L (42-52) % RDW Std Deviation (36.4-46.3) fL RDW Coeff of Robby (11.5-14.5) % APTT (21.0-31.0) Seconds POC pCO2 (35-46) mmHg POC pO2 (80-95) mmHg POC HCO3 (19-24) feliz/L POC Total CO2 33 H (24-31) mmol/L POC Base Excess (-9-1.8) feliz/L ABG pCO2 (Temp Corrct (35-46) mmHg POC Sodium 133 L (135-144) mmol/L POC Chloride 96 L (101-112) mmol/L POC Anion Gap 10.0 L (16-25) mmol/L POC BUN 22 H (7-18) mg/dl BUN (7-18) mg/dl Glucose (70-99) mg/dl POC Glucose 184 H 166 H (70-99) mg/dl POC Glucose (other) 197 H (70-99) mg/dl Magnesium (1.8-2.4) mg/dl 11/25/21 11/25/21 11/25/21 Range/Units 03:37 03:59 05:36 RBC 3.88 L (4.7-6.1) M/uL Hgb 11.5 L (14.0-18.0) g/dL POC Hgb 11.2 L (14.0-18.0) g/dl Hct 34.7 L (42-52) % POC Hct 33 L (42-52) % RDW Std Deviation 47.3 H (36.4-46.3) fL RDW Coeff of Robby 14.6 H (11.5-14.5) % APTT (21.0-31.0) Seconds POC pCO2 53 H (35-46) mmHg POC pO2 60 L (80-95) mmHg POC HCO3 35 H (19-24) feliz/L POC Total CO2 36 H (24-31) mmol/L POC Base Excess 10.0 H (-9-1.8) feliz/L ABG pCO2 (Temp Corrct 52 H (35-46) mmHg POC Sodium 134 L (135-144) mmol/L POC Chloride (101-112) mmol/L POC Anion Gap (16-25) mmol/L POC BUN (7-18) mg/dl BUN (7-18) mg/dl Glucose (70-99) mg/dl POC Glucose 146 H (70-99) mg/dl POC Glucose (other) (70-99) mg/dl Magnesium (1.8-2.4) mg/dl 11/25/21 11/25/21 11/25/21 Range/Units 05:36 05:36 08:02 RBC (4.7-6.1) M/uL Hgb (14.0-18.0) g/dL POC Hgb (14.0-18.0) g/dl Hct (42-52) % POC Hct (42-52) % RDW Std Deviation (36.4-46.3) fL RDW Coeff of Robby (11.5-14.5) % APTT 54.7 H* (21.0-31.0) Seconds POC pCO2 (35-46) mmHg POC pO2 (80-95) mmHg POC HCO3 (19-24) feliz/L POC Total CO2 (24-31) mmol/L POC Base Excess (-9-1.8) feliz/L ABG pCO2 (Temp Corrct (35-46) mmHg POC Sodium (135-144) mmol/L POC Chloride (101-112) mmol/L POC Anion Gap (16-25) mmol/L POC BUN (7-18) mg/dl BUN 24 H (7-18) mg/dl Glucose 144 H (70-99) mg/dl POC Glucose (70-99) mg/dl POC Glucose (other) 151 H (70-99) mg/dl Magnesium 2.5 H (1.8-2.4) mg/dl 11/25/21 Range/Units 12:21 RBC (4.7-6.1) M/uL Hgb (14.0-18.0) g/dL POC Hgb (14.0-18.0) g/dl Hct (42-52) % POC Hct (42-52) % RDW Std Deviation (36.4-46.3) fL RDW Coeff of Robby (11.5-14.5) % APTT (21.0-31.0) Seconds POC pCO2 (35-46) mmHg POC pO2 (80-95) mmHg POC HCO3 (19-24) feliz/L POC Total CO2 (24-31) mmol/L POC Base Excess (-9-1.8) feliz/L ABG pCO2 (Temp Corrct (35-46) mmHg POC Sodium (135-144) mmol/L POC Chloride (101-112) mmol/L POC Anion Gap (16-25) mmol/L POC BUN (7-18) mg/dl BUN (7-18) mg/dl Glucose (70-99) mg/dl POC Glucose (70-99) mg/dl POC Glucose (other) 177 H (70-99) mg/dl Magnesium (1.8-2.4) mg/dl
[2021-11-25] MEDS: ENOXAPARIN 80 MG/0.8 ML SYR SQ SCH ×2 (12:39→23:59)
[2021-11-25] MEDS ORDERED: INSULIN GLARGINE SOLOSTAR 100 UNITS/ML 3 ML PEN SC ONE (12:45)
--- NOTE | 2021-11-25 12:48 | Pharmacy Report ---
Pharmacy Glycemic Short Note 2 - Date of Service November 25, 2021 - Glycemic Short BSG Results (Last 24 hours): 11/24/21 11/24/21 11/24/21 12:12 16:23 20:34 Glucose POC Glucose 184 H POC Glucose (other) 159 H 184 H 11/24/21 11/24/21 11/25/21 21:10 23:19 03:37 Glucose POC Glucose 166 H 146 H POC Glucose (other) 197 H 11/25/21 11/25/21 11/25/21 05:36 08:02 12:21 Glucose 144 H POC Glucose POC Glucose (other) 151 H 177 H OUTPATIENT ANTIDIABETIC REGIMEN: * n/a * A1c 6.0% ASSESSMENT: 11/25 * Patient remains intubated, sedated, receiving norepi at 0.04mcg/kg/min as well as high dose IV steroids and tube feeds at "trickle" rates. * BSGs fairly well controlled over last 24 hrs however pt did require 7 units correctional insulin. Will give low dose Lantus x 1 today as stressors unlikely to change. PLAN FOR INPATIENT GLYCEMIC CONTROL: * Lantus 6 units SQ x 1, reassess needs tomorrow AM * NovoLog per scale Q4hrs * Goal range 110-140 mg/dl * CF = 30 mg/dl/unit * CR = 10g/unit
[2021-11-25] MEDS: fentaNYL citrate 2,500 MCG/250 ML BAG IV SCH ×2 (15:59)
[2021-11-25] MEDS: MIDAZOLAM BOLUS FROM BAG IV PRN (20:23)
[2021-11-25] MEDS: PROPOFOL BOLUS FROM BAG IV PRN (20:23)
[2021-11-26] MEDS: INSULIN ASPART PER UNIT SC SCH ×6 (00:05→20:05)
[2021-11-26] MEDS: PROPOFOL BOLUS FROM BAG IV PRN ×4 (00:13→21:48)
[2021-11-26] MEDS: MIDAZOLAM BOLUS FROM BAG IV PRN ×3 (00:13→06:02)
[2021-11-26 03:52] LABS: iSTAT Art Bld Gas pCO2 Correct 47 mmHg (35-46); iSTAT Arterial Blood Gas HCO3 34 meg/L (19-24); iSTAT Arterial Blood Gas pCO2 48 mmHg (35-46); iSTAT Arterial Blood Gas pH 7.46 (7.35-7.45); iSTAT Arterial Blood Gas pO2 53 mmHg (80-95); iSTAT Arterial Blood Gas pO2 C 51; iSTAT Carbon Dioxide 36 mmol/L (24-31); iSTAT FiO2 45 %; iSTAT Hematocrit 32 % (42-52); iSTAT Hemoglobin 10.9 g/dl (14.0-18.0); iSTAT Potassium 3.5 mmol/L (3.3-5.0); iSTAT Site Art Line; iSTAT Sodium 136 mmol/L (135-144)
[2021-11-26] MEDS: propofoL 1,000 MG/100 ML VIAL IV SCH ×4 (04:35→20:07)
[2021-11-26 06:02] LABS: Hematocrit (blood only) 34.8 % (42-52); Hemoglobin 11.3 g/dL (14.0-18.0); Mean Corpuscular Hemoglobin 29.2 pg (25-34); Mean Corpuscular Hgb Conc 32.5 g/dL (32-36); Mean Corpuscular Volume 89.9 fL (80-100); Mean Platelet Volume 9.3 fL (7.4-10.4); Platelet Count 275 K/uL (130-400); RDW Coefficient of Variation 14.7 % (11.5-14.5); RDW Standard Deviation 48.4 fL (36.4-46.3); Red Blood Count 3.87 M/uL (4.7-6.1); White Blood Count 10.31 K/uL (4.8-10.8)
[2021-11-26 06:11] LABS: Prothrombin Time 9.8 Seconds (9.0-12.0)
[2021-11-26 06:32] LABS: BUN Creatinine Ratio 27.4 (10-20); Calcium 9.1 mg/dl (8.5-10.1); Creatinine Clr Calc Pharmacy 70.8 ml/min; Est GFR (African American) 85.3 ml/min; Est GFR (Non-African American) 73.6 ml/min; Magnesium 2.5 mg/dl (1.8-2.4); Phosphorus 2.6 mg/dl (2.5-4.9); Potassium 3.3 mmol/L (3.5-5.1)
[2021-11-26] MEDS ORDERED: LIDOCAINE 2%/EPINEPHRINE 1:100,000 20ML INFIL ONE (06:53)
[2021-11-26 06:58] LABS: Partial Thromboplastin Ratio 1.1; Partial Thromboplastin Time 29.4 Seconds (21.0-31.0)
[2021-11-26] MEDS ORDERED: VECURONIUM BROMIDE 10 MG VIAL IV STA (07:05)
--- NOTE | 2021-11-26 07:54 | Procedure Note ---
Procedure Note Date of Service November 26, 2021 Note Procedure: Flexible Bronchoscopy Attending/Medical Collector: Dr. Maxwell, Branden Velasquez PA-C Anesthetic/Sedation: Fentanyl, Propofol Veccuronium Indication: Respiratory failure with fibrotic lung in the setting of COVID-19 pneumonia. Consent was signed and placed on the chart prior to procedure. Indication, risks, and benefits were explained at length. A time-out was completed verifying correct patient, procedure, site, positioning, and implant(s) or special equipment if applicable. Bronchoscope was advanced to the ET tube. Patient with thick white secretions throughout entire tube. After aggressive suctioning, bronchoscope was advanced to the tip of the ET tube. After adequate visualization of the james and distal airways, the ET tube was advanced with the bronchoscope in place to the point where visualization of insertion site for needle was adequate. The finder needle placement was visualized centrally. No penetration of the back wall. Guidewire was advanced and noted to travel to the distal airway. Serial dilation was performed without injury of the back wall. Tracheostomy was visualized entering the airway. Bronchoscope was advanced through the tracheostomy tube site with visualization of the james and distal airways. Bronchoscope was removed and patient placed on the ventilator through new tr acheostomy site. Complications: NONE Impression: Successful percutaneous tracheostomy placement. Coding CPT Codes Pulmonary/Thoracic - Pulmonary and Thoracic: 98250 Bronchoscopy, clear airways ([id number]) [facility] [place]odes (Charges) Pulmonary/Thoracic Procedure 1: Pulmonary and Thoracic: 12624 Bronchoscopy, clear airways
--- NOTE | 2021-11-26 07:56 | Procedure Note ---
Procedure Note Date of Service November 26, 2021 Note Procedure Date: Noted Above Procedure: Percutaneous Dilatational Tracheotomy with Bronchoscopic Guidance Pre-procedure Diagnosis & Indication: Chronic respiratory failure and need for ongoing mechanical ventilation Post-procedure Diagnosis: same as above Prior to Procedure: Informed Consent: The risks, benefits, indications, potential complications, and alternatives were explained to the patient's via telephone and informed consent was obtained. Performed by: Diane Mxawell DO Bronchoscopy Javascript Front End Developer: Herb Velasquez Preprocedure: The identity of the patient was confirmed and a bedside time out was performed. [place] protocol was followed for this procedure. Prior to the initiation of sedation or the procedure, a timeout was performed. The patients identity was verified by confirming the patients wrist band for name, date of , and medical record number. Everyone in the room was in agreement with the patient identify, the procedure to be performed, consent was in place and matched the planned procedure, and the procedure site. The area was cleaned with a CHG scrub and draped with large sterile barrier. Hand hygiene was performed, and cap, mask, sterile gown, and sterile gloves were worn. The patient was co carlee by a large sterile drape. Sterile technique was maintained for the entire procedure. Anesthesia: The patient was intubated and sedated prior to the procedure. Additional midazolam and fentanyl was given for deep sedation. Please refer to the accompanying procedural sedation form for additional details. Once the patient was adequately sedated, vecuronium was administered for paralysis. Description of Procedure: The patient was placed in the supine position. The anterior neck was prepped and draped in usual sterile fashion. 1% lidocaine was administered approximately 2 fingerbreadths above the sternal notch for local anesthesia. The bronchoscope was introduced through the endotracheal tube and the trachea was properly visualized. The endotracheal tube was then gradually withdrawn within the trachea under direct bronchoscopic visualization. The area of the surgical site was initially transilluminated, and proper midline position was confirmed by bouncing the needle from the tracheostomy tray over the trachea with bronchoscopic examination. The needle was advanced into the trachea and proper positioning was confirmed with direct visualization. The needle was then removed leaving a white outer cannula in position. The wire from the tracheostomy tray was then advanced through the white outer cannula. The cannula was then removed. The initial small, blue dilator was then advanced over the wire into the trachea for initial dilation. The large, tapered dilator was then advanced over the wire into the trachea. The dilator was removed leaving the wire and white inner cannula in position. A number 6 percutaneous Shiley tracheostomy tube with appropriate inner cannula was then advanced over the wire and white inner cannula into the trachea. Proper positioning was confirmed with bronchoscopic visualization. The tracheostomy tube was then sutured in place with four nylon sutures. It was further secured with a tracheostomy tie. Estimated blood loss: Less than 5 mL. Complications: None immediate. Coding CPT Codes ENT - ENT: 20476 Incision of windpipe ([id number]) [facility] [place] (Charges) ENT ENT: 57401 Incision of windpipe
[2021-11-26] MEDS: fentaNYL citrate 2,500 MCG/250 ML BAG IV SCH (08:00)
[2021-11-26] MEDS: dexAMETHasone 10 MG in SYRINGE 0 ML IV SCH (08:15)
[2021-11-26] MEDS: PANTOprazole 40 MG in SYRINGE 0 ML IV SCH ×2 (08:15→20:51)
--- NOTE | 2021-11-26 08:27 | XRay Report ---
KUB CLINICAL HISTORY: coresafe placement COMPARISON STUDY: KUB November 20, 2021. FINDINGS: The tip of the feeding tube projects over the first portion of the duodenum. Visualized bow el gas pattern is normal. Airspace opacities are noted within visualized portions of the lungs. IMPRESSION: Tip of feeding tube projects over the first portion of the duodenum. ACT 112: Negative or not required by law. Electronically signed by: Jesus Roberts M.D. 11/26/2021 8:25 AM
[2021-11-26] MEDS: MIDAZOLAM HCL 125 MG/250 ML BAG IV PRN (08:51)
--- NOTE | 2021-11-26 08:59 | XRay Report ---
KUB CLINICAL HISTORY: coresafe repositioned. COMPARISON STUDY: KUB performed earlier today. FINDINGS: Tip of feeding tube projects over the distal body of the stomach. Visualized bowel gas rogelio uma is normal. Airspace opacities are noted within visualized portions of the lungs. IMPRESSION: Tip of feeding tube projects over the distal body of the stomach. ACT 112: Negative or not required by law. Electronically signed by: Jesus Roberts M.D. 11/26/2021 8:58 AM
--- NOTE | 2021-11-26 10:01 | Critical Care Progress Note ---
Date of Service November 26, 2021 Assessment & Plan (1) Acute hypoxemic respiratory failure due to COVID-19: (2) 2019 novel coronavirus-infected pneumonia (NCIP): (3) Factor V Leiden carrier: (4) Pneumomediastinum: Plan: CT chest 11/19/2021 personally reviewed: Diffuse patchy opacities appreciated bilaterally upper and lower lobes I do think there is a component of fibrosis to certain degree Bilateral pleural effusion small No significant mediastinal lymphadenopathy -- VDRF Likely secondary to Acute hypoxic respiratory failure Secondary to multilobar COVID-19 pneumonia Patient has very poor compliance. Continue with ventilatory support Intubation 11/20 day 6 COVID-19 + 11/03/2021 No central PE on CTA 11/19/2021 CRP 34.6 Procalcitonin 0.23 NT BNP 501 Continue with lung protective ventilation High PEEP, low tidal volume to keep Plateau < 30 with permissive hypercapnea if need be. Monitor ABGs Patient was started on late DEXA ARDS protocol Patient is not a candidate for ECMO -- FRANDY: Resolved Likely from initial hypotensive episode. Monitor BUN/creatinine Avoid nephrotoxic medications Strict ins and outs --S/p acute hyponatremia: Resolved S/p 100 mL hypertonic saline on 11/21/2021 --Pulmonary hypertension Type III likely from pulmonary fibrosis likely developing from COVID-19 pne umonia --Pneumomediastinum Small --History of factor Leiden deficiency Continue with heparin drip --History of dyslipidemia --Prophylaxis VTE: Heparin drip GI: Protonix Lines: Left IJ, right radial, positive Vaughn Diet: Tube feedings. Patient's [phone] Had discussion with regards to prognosis, at this time we will proceed with tracheostomy when safe. Continue current level medical/life support, however in event of cardiac arrest will not undergo heroic measures DNR in event of cardiac arrest Admission and Anticipated Discharge Date Admission Date: November 03, 2021 Subjective tracheostomy performed this am Review of Systems Review of Systems: unable to obtain due to trachesotomy tube Physical Exam Physical Exam: General: Sedated. nontoxic. Skin: Warm, dry, Head: Atraumatic Ears, nose, mouth and throat: airway airway patent, tracheostomy tube in place Cardiovascular: Normal peripheral perfusion Respiratory: Ventilator settings reviewed Gastrointestinal: Non distended Musculoskeletal: No deformity Results & Data Results & Data ([facility]) Vital Signs (Past 12 Hours) Vital Signs Temp Pulse Pulse Resp BP BP Pulse Ox 11/26/21 09:06 85 11/26/21 09:00 37.0 C 98 H 26 H 94/43 L 92 11/26/21 08:13 117 H 27 H 93 11/26/21 07:49 36.9 C 113 H 30 H 175/77 H 93 11/26/21 06:45 56 L 11/26/21 06:15 36.8 C 86 26 H 108/62 89 L 11/26/21 06:00 36.8 C 90 26 H 106/60 93 11/26/21 05:45 36.7 C 100 H 26 H 115/65 89 L 11/26/21 05:30 36.7 C 87 26 H 114/63 87 L 11/26/21 05:15 36.6 C 98 H 26 H 112/65 88 L 11/26/21 05:00 36.6 C 97 H 26 H 119/67 89 L 11/26/21 04:45 36.6 C 91 H 26 H 120/69 91 11/26/21 04:30 36.6 C 88 26 H 127/71 93 11/26/21 04:15 36.6 C 63 26 H 103/59 L 93 11/26/21 04:00 36.5 C 60 26 H 106/58 L 93 11/26/21 03:45 36.5 C 58 L 26 H 101/58 L 93 11/26/21 03:30 36.5 C 60 26 H 103/58 L 92 11/26/21 03:19 60 26 H 89 L 11/26/21 03:15 36.5 C 62 26 H 99/56 L 89 L 11/26/21 03:00 36.5 C 64 26 H 98/55 L 89 L 11/26/21 02:45 36.4 C L 66 26 H 97/56 L 90 11/26/21 02:30 36.4 C L 68 26 H 96/54 L 89 L 11/26/21 02:15 36.3 C L 84 26 H 111/59 L 89 L 11/26/21 02:00 36.3 C L 72 26 H 121/68 91 11/26/21 01:45 36.2 C L 62 26 H 106/60 91 11/26/21 01:30 36.2 C L 58 L 26 H 107/62 91 11/26/21 01:15 36.2 C L 56 L 26 H 108/64 91 11/26/21 01:00 36.2 C L 54 L 26 H 110/62 91 11/26/21 00:45 36.2 C L 55 L 26 H 109/63 91 11/26/21 00:30 36.2 C L 54 L 26 H 113/64 91 11/26/21 00:15 36.2 C L 58 L 26 H 96/55 L 90 11/26/21 00:00 62 117/53 L 11/25/21 22:30 60 27 H 91 Coding Level of Care Code Critical Care 1st 30-74 mins Diagnoses Acute hypoxemic respiratory failure due to COVID-19 U07.1; J96.01 2019 novel coronavirus-infected pneumonia (NCIP) U07.1; J12.82 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
[2021-11-26] MEDS: oxyCODONE HCL IR 5 MG TAB (IMMEDIATE RELEASE) PO SCH ×3 (11:59→23:45)
[2021-11-26] MEDS: ENOXAPARIN 80 MG/0.8 ML SYR SQ SCH ×2 (12:00→23:44)
--- NOTE | 2021-11-26 12:08 | Pharmacy Report ---
Pharmacy Glycemic Short Note 2 - Date of Service November 26, 2021 - Glycemic Short BSG Results (Last 24 hours): 11/25/21 11/25/21 11/25/21 12:21 16:14 20:00 Glucose POC Glucose (other) 177 H 160 H 141 H 11/26/21 11/26/21 11/26/21 00:04 04:41 05:46 Glucose 97 POC Glucose (other) 119 H 106 H 11/26/21 07:56 Glucose POC Glucose (other) 103 H OUTPATIENT ANTIDIABETIC REGIMEN: * n/a * A1c 6.0% ASSESSMENT: 11/26 * BSGs well controlled over last 24 hrs * Patient remains on mech vent but is now s/p trach, sedation regimen adjusted today, norepi weaned off this AM, tube feeds continue at trickle rates (Peptamen VHP @10cc/hr), and dexamethasone 10mg IV Q AM continues. * Will refrain from giving additional basal today, unless BSGs do climb > 170 11/25 * Patient remains intubated, sedated, receiving norepi at 0.04mcg/kg/min as well as high dose IV steroids and tube feeds at "trickle" rates. * BSGs fairly well controlled over last 24 hrs however pt did require 7 units co rrectional insulin. Will give low dose Lantus x 1 today as stressors unlikely to change. PLAN FOR INPATIENT GLYCEMIC CONTROL: * Lantus 5 units SQ x 1 only if BSG > 170 today * NovoLog per scale Q4hrs * Goal range 110-140 mg/dl * CF = 30 mg/dl/unit * CR = 10g/unit
[2021-11-26] MEDS: NOREPINEPHRINE/D5W 8 MG/508 ML BAG IV SCH (15:30)
[2021-11-26] MEDS ORDERED: INSULIN GLARGINE SOLOSTAR 100 UNITS/ML 3 ML PEN SC ONE (20:00)
--- NOTE | 2021-11-26 20:11 | Hospitalist Progress Note ---
Date of Service November 26, 2021 Assessment & Plan (1) COVID-19: Plan: Acute hypoxic respiratory failure due to COVID-19 pneumonia Tested positive to COVID 19 on 10/27/21 Initially completed course of remdesivir and dexamethasone Did not meet criteria for baricitinib as patient was already admitted for more than 72 hours Acute worsening respiratory status CT PE did not show any PE but showed progression of bilateral opacities, small amount of pneumomediastinum and small bilateral pleural effusion. Currently on azithromycin. Had previously completed cefepime and doxycycline. Intubated on 11/20/21 --> 11/26/2021 tracheostomy status, on mechanical ventilation being managed per critical care team. Per prior attending: On 11/20/21, I called [facility] and spoke with Dr. Samson. We discussed patient. Unfortunately, patient is not an ECMO candidate MRSA swab is negative Patient on late ARDS protocol. Image Archivist on board managing vent and sedation Acute Hyponatremia FRANDY likely related to hypotension Hyponatremia improving 135 today Monitor BMP Hx DVT, Factor V Leiden Has mild edema of the left lower extremity, chronic per patient Doppler ultrasound done during this admission: nonocclusive thrombus present wit hin the common femoral vein and the proximal to mid superficial femoral vein- c hronic per Radiologist Coumadin on hold Heparin changed to therapeutic lovenox Dyslipidemia Plan to resume Atorvastatin on dc Disposition ICU Poor prognosis Per prior attending: called and updated. reported as she already discussed with the landfill gas collection system operator and will likely proceed with tracheostomy at some point. (2) Nausea vomiting and diarrhea: Admission and Anticipated Discharge Date Admission Date: November 03, 2021 Subjective Patient was lying in bed, sedated, tracheostomy status under mechanical ventilation, per RN patient moved all his extremities when off of sedation. At bedside exam, patient was sedated with propofol, fentanyl and Versed. No new acute events overnight per RN. ROS not assessable. Physical Exam Physical Exam: GENERAL: Sedated, tracheostomy status, on mechanical ventilation HEENT: No pallor, no icterus. Pupils equal, round and reactive to light. Oral mucosa moist. NECK: No JVD, no neck masses. HEART: S1 and S2 heard. Regular rate and rhythm. No murmur, no gallop. RESPIRATORY SYSTEM: Normal AP diameter. No accessory muscle use. No wheezing, increased breath sounds bilaterally with crackles. ABDOMEN: Soft, bowel sounds present, no distention. CENTRAL NERVOUS SYSTEM: n/a EXTREMITIES: 2+ LLE edema, no erythema seen. Vaughn catheter with yellow urine collection. Drips: Fentanyl, norepinephrine, propofol, midazolam. Results & Data Results & Data ([facility]) Vital Signs (Past 12 Hours) Vital Signs Temp Pulse Pulse Resp BP Pulse Ox 11/26/21 19:37 110 H 31 H 91 11/26/21 18:00 37.4 C 70 28 H 109/52 L 93 11/26/21 17:00 37.6 C H 78 28 H 92/51 L 93 11/26/21 16:06 37.5 C 93 H 28 H 90/47 L 92 11/26/21 15:53 111 H 11/26/21 15:00 37.5 C 105 H 28 H 99/52 L 93 11/26/21 14:41 109 H 33 H 93 11/26/21 14:00 37.4 C 93 H 30 H 97/50 L 92 11/26/21 13:00 37.4 C 106 H 28 H 90/57 L 92 11/26/21 12:00 37.3 C 105 H 28 H 101/49 L 94 11/26/21 11:00 117 H 29 H 92 11/26/21 09:06 85 11/26/21 09:00 37.0 C 98 H 26 H 94/43 L 92 11/26/21 08:13 117 H 27 H 93
[2021-11-26] MEDS: POTASSIUM CHLORIDE / WTR 20 MEQ/100 ML PLCT IV SCH ×2 (20:49→22:37)
[2021-11-26] MEDS: PEPTAMEN INTENSE VHP 1.0 CAL 1,000 ML BAG OG SCH (22:37)
[2021-11-27] MEDS: propofoL 1,000 MG/100 ML VIAL IV SCH ×3 (00:04→11:17)
[2021-11-27] MEDS: INSULIN ASPART PER UNIT SC SCH ×6 (00:06→20:27)
[2021-11-27 04:08] LABS: iSTAT Arterial Blood Gas HCO3 33 meg/L (19-24); iSTAT Arterial Blood Gas pCO2 56 mmHg (35-46); iSTAT Arterial Blood Gas pH 7.38 (7.35-7.45); iSTAT Arterial Blood Gas pO2 69 mmHg (80-95); iSTAT Carbon Dioxide 35 mmol/L (24-31); iSTAT FiO2 65 %; iSTAT Site Art Line
[2021-11-27] MEDS: oxyCODONE HCL IR 5 MG TAB (IMMEDIATE RELEASE) PO SCH ×4 (04:22→22:56)
[2021-11-27 05:51] LABS: Basophils # (auto) 0.01 K/uL (0-0.2); Basophils % (auto) 0.1 %; Eosinophils # (auto) 0.29 K/uL (0-0.5); Eosinophils % (auto) 1.8 %; Hematocrit (blood only) 36.8 % (42-52); Hemoglobin 11.7 g/dL (14.0-18.0); Immature Granulocytes # (auto) 0.21 K/uL (0.00-0.02); Immature Granulocytes % (auto) 1.3 %; Lymphocytes # (auto) 1.49 K/uL (1.2-3.4); Lymphocytes % (auto) 9.3 %; Mean Corpuscular Hemoglobin 29.1 pg (25-34); Mean Corpuscular Hgb Conc 31.8 g/dL (32-36); Mean Corpuscular Volume 91.5 fL (80-100); Mean Platelet Volume 9.3 fL (7.4-10.4); Monocytes # (auto) 1.26 K/uL (0.11-0.59); Monocytes % (auto) 7.8 %; Neutrophils # (auto) 12.84 K/uL (1.4-6.5); Neutrophils % (auto) 79.7 %; Platelet Count 317 K/uL (130-400); RDW Coefficient of Variation 14.8 % (11.5-14.5); RDW Standard Deviation 49.8 fL (36.4-46.3); Red Blood Count 4.02 M/uL (4.7-6.1)
[2021-11-27] MEDS: fentaNYL citrate 2,500 MCG/250 ML BAG IV SCH ×3 (06:21→11:19)
[2021-11-27 06:31] LABS: BUN Creatinine Ratio 24.5 (10-20); Est GFR (African American) 64.3 ml/min; Est GFR (Non-African American) 55.5 ml/min; Magnesium 2.1 mg/dl (1.8-2.4); Phosphorus 3.1 mg/dl (2.5-4.9); Potassium 4.5 mmol/L (3.5-5.1)
--- NOTE | 2021-11-27 07:36 | XRay Report ---
XR chest 1V portable CLINICAL HISTORY: f/u COMPARISON STUDY: Chest CT November 19, 2021. Chest radiograph November 17, 2021. FINDINGS: Tracheostomy tube is in place. Left internal jugular central line is in place. Slight curva ture of the tip of the central line is noted and may slightly extend into the azygos vein. Tip of fee ding tube is within the distal body of the stomach. There is no pneumothorax. Small right pleural eff usion is noted. There may be a trace left pleural effusion. No pneumothorax is identified. Cardiomedi astinal silhouette is stable. Extensive bilateral airspace opacities persist. IMPRESSION: 1. Tracheostomy tube in place. 2. Tip of left internal jugular central line may slightly extend into the azygos vein. 3. Persistent extensive bilateral airspace opacities, similar to prior exam. ACT 112: Negative or not required by law. Electronically signed by: Jesus Roberts M.D. 11/27/2021 7:35 AM
[2021-11-27] MEDS: NOREPINEPHRINE/D5W 8 MG/508 ML BAG IV SCH (08:04)
--- NOTE | 2021-11-27 08:38 | Critical Care Progress Note ---
Date of Service November 27, 2021 Assessment & Plan (1) Acute hypoxemic respiratory failure due to COVID-19: (2) 2019 novel coronavirus-infected pneumonia (NCIP): (3) Factor V Leiden carrier: (4) Pneumomediastinum: Plan: Neuro: Sedation: Propofol and Versed Analgesia: fentanyl: Discontinued today -Oxycodone taper Cardiovascular: Hypotension -Currently on Levophed -Albumin 50 g 25% x 1 today Respiratory: CT chest 11/19/2021 personally reviewed: Diffuse patchy opacities appreciated bilaterally upper and lower lobes I do think there is a component of fibrosis to certain degree Bilateral pleural effusion small No significant mediastinal lymphadenopathy -- VDRF Likely secondary to Acute hypoxic respiratory failure Secondary to multilobar COVID-19 pneumonia Patient has very poor compliance. Continue with ventilatory support Intubation 11/20 Tracheostomy 11/26 postop day 1 Ventilator settings reviewed attempt to wean FiO2 as tolerated -Consider transition to pressure support COVID-19 + 11/03/2021 No central PE on CTA 11/19/2021 Patient was started on late DEXA ARDS protocol -Transition from 10 mg daily to 7.5 mg x 3 days then 5 mg x 3 days then 2.5 mg x 3 days then stop Patient is not a candidate for ECMO Renal: -- FRANDY: Resolved Likely from initial hypotensive episode. Monitor BUN/creatinine Avoid nephrotoxic medications Strict ins and outs --S/p acute hyponatremia: Resolved S/p 100 mL hypertonic saline on 11/21/2021 --Pulmonary hypertension Type III likely from pulmonary fibrosis likely developing from COVID-19 pneumonia --Pneumomediastinum Small --History of factor Leiden deficiency Lovenox 80 mg every 12 --History of dyslipidemia --Prophylaxis VTE: Heparin drip GI: Protonix transition from twice daily to once daily Lines: Left IJ, right radial, positive Vaughn Diet: Tube feedings, increased to goal Patient's [phone] After discussion with family: Continue current level medical/life support, however in event of cardiac arrest will not undergo heroic measures DNR in event of cardiac arrest Updated the patient's at bedside Admission and Anticipated Discharge Date Admission Date: November 03, 2021 Supervising Physician Co-Signing Physician Notes I have personally spent 45 minutes of critical care time in the direct management of this patient. This is a life/limb threatening event. This includes time spent evaluating patient, direct bedside care, chart review, placing orders, interpretation of diagnostic studies, discussion with consultants, patient, and/or family members regarding treatment decisions, as well as other required patient management activities. This time is exclusive of all separately billable procedures, and teaching time and separate from and in addition to any other critical care service time. Subjective Febrile, no significant events overnight Review of Systems Review of Systems: unable to obtain due to trachesotomy tube Physical Exam Physical Exam: General: Localizes to stimuli eyes open. Skin: Warm, dry, Head: Atraumatic Ears, nose, mouth and throat: airway airway patent, tracheostomy tube in place Cardiovascular: Normal peripheral perfusion, tachycardic Respiratory: Ventilator settings reviewed Gastrointestinal: Non distended Musculoskeletal: No deformity Results & Data Results & Data ([facility]) Vital Signs (Past 12 Hours) Vital Signs Temp Pulse Resp BP Pulse Ox 11/27/21 08:00 109 H 115/64 11/27/21 06:30 38.1 C H 89 27 H 110/52 L 93 11/27/21 06:15 38.1 C H 86 27 H 110/55 L 93 11/27/21 06:00 38.1 C H 91 H 28 H 100/51 L 93 11/27/21 05:45 38.2 C H 97 H 29 H 104/52 L 93 11/27/21 05:30 38.2 C H 121 H 32 H 93/55 L 92 11/27/21 05:15 38.3 C H 100 H 27 H 103/52 L 92 11/27/21 05:00 38.3 C H 99 H 28 H 102/51 L 91 11/27/21 04:54 37.5 C 11/27/21 04:53 38.3 C H 102 H 29 H 110/53 L 90 11/27/21 04:45 38.3 C H 111 H 28 H 112/57 L 90 11/27/21 04:30 38.3 C H 114 H 31 H 114/60 90 11/27/21 04:00 38.3 C H 124 H 37 H 109/63 90 11/27/21 03:45 38.3 C H 113 H 29 H 112/59 L 93 11/27/21 03:30 38.3 C H 117 H 38 H 107/52 L 93 11/27/21 03:15 38.3 C H 104 H 29 H 105/55 L 93 11/27/21 03:00 38.3 C H 117 H 34 H 117/64 92 11/27/21 02:45 110/61 11/27/21 02:43 116 H 33 H 93 11/27/21 02:30 38.4 C H 115 H 35 H 132/114 H 93 11/27/21 02:15 38.5 C H 111 H 34 H 125/62 93 11/27/21 02:00 116/57 L 11/27/21 01:45 106/60 11/27/21 01:30 110/58 L 11/27/21 01:15 38.5 C H 116 H 33 H 114/62 92 11/27/21 01:00 38.5 C H 119 H 33 H 110/62 92 11/27/21 00:45 38.4 C H 114 H 27 H 114/56 L 93 11/27/21 00:30 38.4 C H 101 H 24 111/61 95 11/27/21 00:00 104 H 11/26/21 23:13 117 H 32 H 94 11/26/21 22:58 109 H 113/54 L 11/26/21 22:45 38.0 C H 133 H 38 H 93 11/26/21 22:30 37.9 C H 129 H 37 H 95 11/26/21 22:15 37.8 C H 114 H 27 H 93 11/26/21 22:10 124 H 11/26/21 22:09 118 H 35 H 92 11/26/21 22:03 118 H 44 H 119/64 87 L 11/26/21 21:45 37.7 C H 115 H 105/70 91 11/26/21 21:30 37.7 C H 124 H 117/70 92 11/26/21 21:15 37.6 C H 114 H 108/63 87 L 11/26/21 21:00 37.6 C H 103 H 113/65 89 L 11/26/21 20:45 37.6 C H 107 H 28 H 112/62 89 L Laboratory Results 11/27/21 11/27/21 11/27/21 Range/Units 11:40 07:56 05:26 WBC 16.10 H (4.8-10.8) K/uL RBC 4.02 L (4.7-6.1) M/uL Hgb 11.7 L (14.0-18.0) g/dL Hct 36.8 L (42-52) % MCV 91.5 (80-100) fL MCH 29.1 (25-34) pg MCHC 31.8 L (32-36) g/dL RDW Std Deviation 49.8 H (36.4-46.3) fL RDW Coeff of Robby 14.8 H (11.5-14.5) % Plt Count 317 (130-400) K/uL MPV 9.3 (7.4-10.4) fL Immature Gran % (Auto) 1.3 % Neut % (Auto) 79.7 % Lymph % (Auto) 9.3 % Parmer % (Auto) 7.8 % Eos % (Auto) 1.8 % Baso % (Auto) 0.1 % Neut # (Auto) 12.84 H (1.4-6.5) K/uL Lymph # (Auto) 1.49 (1.2-3.4) K/uL Parmer # (Auto) 1.26 H (0.11-0.59) K/uL Eos # (Auto) 0.29 (0-0.5) K/uL Baso # (Auto) 0.01 (0-0.2) K/uL Immature Gran # (Auto) 0.21 H (0.00-0.02) K/uL Sample Site POC pH (7.35-7.45) POC pCO2 (35-46) mmHg POC pO2 (80-95) mmHg POC HCO3 (19-24) feliz/L POC Total CO2 (24-31) mmol/L POC Base Excess (-9-1.8) feliz/L POC ABG O2 Sat (90-95) % Francisco Test O2 Delivery Device POC O2 Rate POC FiO2 % Tidal Volume PEEP Sodium (136-145) mmol/L Potassium (3.5-5.1) mmol/L Chloride (98-107) mmol/L Carbon Dioxide (21-32) mmol/L Anion Gap (3-11) BUN (7-18) mg/dl Creatinine (0.6-1.4) mg/dl Est Cr Clr Drug Dosing ml/min Est GFR ( Amer) ml/min Est GFR (Non-Af Amer) ml/min BUN/Creatinine Ratio (10-20) Glucose (70-99) mg/dl POC Glucose (70-99) mg/dl POC Glucose (other) 139 H 134 H (70-99) mg/dl Calcium (8.5-10.1) mg/dl Phosphorus (2.5-4.9) mg/dl Magnesium (1.8-2.4) mg/dl 11/27/21 11/27/21 11/27/21 Range/Units 05:26 04:18 03:53 WBC (4.8-10.8) K/uL RBC (4.7-6.1) M/uL Hgb (14.0-18.0) g/dL Hct (42-52) % MCV (80-100) fL MCH (25-34) pg MCHC (32-36) g/dL RDW Std Deviation (36.4-46.3) fL RDW Coeff of Robby (11.5-14.5) % Plt Count (130-400) K/uL MPV (7.4-10.4) fL Immature Gran % (Auto) % Neut % (Auto) % Lymph % (Auto) % Parmer % (Auto) % Eos % (Auto) % Baso % (Auto) % Neut # (Auto) (1.4-6.5) K/uL Lymph # (Auto) (1.2-3.4) K/uL Parmer # (Auto) (0.11-0.59) K/uL Eos # (Auto) (0-0.5) K/uL Baso # (Auto) (0-0.2) K/uL Immature Gran # (Auto) (0.00-0.02) K/uL Sample Site Art Line POC pH 7.38 (7.35-7.45) POC pCO2 56 H (35-46) mmHg POC pO2 69 L (80-95) mmHg POC HCO3 33 H (19-24) feliz/L POC Total CO2 35 H (24-31) mmol/L POC Base Excess 8.0 H (-9-1.8) efliz/L POC ABG O2 Sat 93.0 (90-95) % Francisco Test NA O2 Delivery Device Ventilator POC O2 Rate 26 POC FiO2 65 % Tidal Volume 350 PEEP 3 Sodium 131 L (136-145) mmol/L Potassium 4.5 D (3.5-5.1) mmol/L Chloride 97 L (98-107) mmol/L Carbon Dioxide 31 (21-32) mmol/L Anion Gap 3.0 (3-11) BUN 34 H (7-18) mg/dl Creatinine 1.39 (0.6-1.4) mg/dl Est Cr Clr Drug Dosing 56.0 ml/min Est GFR ( Amer) 64.3 ml/min Est GFR (Non-Af Amer) 55.5 ml/min BUN/Creatinine Ratio 24.5 H (10-20) Glucose 127 H (70-99) mg/dl POC Glucose 124 H (70-99) mg/dl POC Glucose (other) (70-99) mg/dl Calcium 9.0 (8.5-10.1) mg/dl Phosphorus 3.1 (2.5-4.9) mg/dl Magnesium 2.1 (1.8-2.4) mg/dl 11/27/21 11/26/21 11/26/21 Range/Units 00:01 20:04 16:19 WBC (4.8-10.8) K/uL RBC (4.7-6.1) M/uL Hgb (14.0-18.0) g/dL Hct (42-52) % MCV (80-100) fL MCH (25-34) pg MCHC (32-36) g/dL RDW Std Deviation (36.4-46.3) fL RDW Coeff of Robby (11.5-14.5) % Plt Count (130-400) K/uL MPV (7.4-10.4) fL Immature Gran % (Auto) % Neut % (Auto) % Lymph % (Auto) % Parmer % (Auto) % Eos % (Auto) % Baso % (Auto) % Neut # (Auto) (1.4-6.5) K/uL Lymph # (Auto) (1.2-3.4) K/uL Parmer # (Auto) (0.11-0.59) K/uL Eos # (Auto) (0-0.5) K/uL Baso # (Auto) (0-0.2) K/uL Immature Gran # (Auto) (0.00-0.02) K/uL Sample Site POC pH (7.35-7.45) POC pCO2 (35-46) mmHg POC pO2 (80-95) mmHg POC HCO3 (19-24) feliz/L POC Total CO2 (24-31) mmol/L POC Base Excess (-9-1.8) feliz/L POC ABG O2 Sat (90-95) % Francisco Test O2 Delivery Device POC O2 Rate POC FiO2 % Tidal Volume PEEP Sodium (136-145) mmol/L Potassium (3.5-5.1) mmol/L Chloride (98-107) mmol/L Carbon Dioxide (21-32) mmol/L Anion Gap (3-11) BUN (7-18) mg/dl Creatinine (0.6-1.4) mg/dl Est Cr Clr Drug Dosing ml/min Est GFR ( Amer) ml/min Est GFR (Non-Af Amer) ml/min BUN/Creatinine Ratio (10-20) Glucose (70-99) mg/dl POC Glucose 77 128 H (70-99) mg/dl POC Glucose (other) 116 H (70-99) mg/dl Calcium (8.5-10.1) mg/dl Phosphorus (2.5-4.9) mg/dl Magnesium (1.8-2.4) mg/dl Coding Level of Care Code Critical Care 1st 30-74 mins Diagnoses Acute hypoxemic respiratory failure due to COVID-19 U07.1; J96.01 2019 novel coronavirus-infected pneumonia (NCIP) U07.1; J12.82 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
[2021-11-27] MEDS: ALBUMIN 25% 100 mL 25 GM/100 ML VIAL IV SCH ×2 (10:31→12:26)
[2021-11-27] MEDS: PANTOprazole 40 MG in SYRINGE 0 ML IV SCH (10:34)
[2021-11-27] MEDS: dexAMETHasone 10 MG in SYRINGE 0 ML IV SCH (10:34)
[2021-11-27] MEDS: TUBE FEEDING WATER FLUSH OG SCH ×4 (10:56→22:56)
[2021-11-27] MEDS: ENOXAPARIN 80 MG/0.8 ML SYR SQ SCH (11:38)
[2021-11-27] MEDS: fentaNYL citrate 100 MCG/2 ML VIAL IV PRN ×2 (12:39→21:38)
[2021-11-27] MEDS: MIDAZOLAM HCL 125 MG/250 ML BAG IV PRN (12:49)
[2021-11-27] MEDS: ACETAMINOPHEN 325 MG TAB PO PRN (13:55)
--- NOTE | 2021-11-27 14:04 | Pharmacy Report ---
Pharmacy Glycemic Short Note 2 - Date of Service November 27, 2021 - Glycemic Short BSG Results (Last 24 hours): 11/26/21 11/26/21 11/27/21 16:19 20:04 00:01 Glucose POC Glucose 128 H 77 POC Glucose (other) 116 H 11/27/21 11/27/21 11/27/21 04:18 05:26 07:56 Glucose 127 H POC Glucose 124 H POC Glucose (other) 134 H 11/27/21 11:40 Glucose POC Glucose POC Glucose (other) 139 H OUTPATIENT ANTIDIABETIC REGIMEN: * n/a * A1c 6.0% ASSESSMENT: 11/27: * BSGs well controlled the last 24hr despite receiving 0 units of insulin yesterday. * S/p trach. Norepi rate increased this AM. Peptamen being titrated to goal. Dexamethasone 10mg given today, however dex taper to start tomorrow. * No change to insulin regimen today. Lantus scale for tonight pending BSG. 11/26 * BSGs well controlled over last 24 hrs * Patient remains on [facility] vent but is now s/p trach, sedation regimen adjusted today, norepi weaned off this AM, tube feeds continue at trickle rates (Peptamen VHP @10cc/hr), and dexamethasone 10mg IV Q AM continues. * Will refrain from giving additional basal today, unless BSGs do climb > 170 11/25 * Patient remains intubated, sedated, receiving norepi at 0.04mcg/kg/min as well as high dose IV steroids and tube feeds at "trickle" rates. * BSGs fairly well controlled over last 24 hrs however pt did require 7 units correctional insulin. Will give low dose Lantus x 1 today as stressors unlikely to change. PLAN FOR INPATIENT GLYCEMIC CONTROL: * Lantus 5 units SQ x 1 only if BSG > 170 today * NovoLog per scale Q4hrs * Goal range 110-140 mg/dl * CF = 30 mg/dl/unit * CR = 10g/unit
--- NOTE | 2021-11-27 15:22 | Hospitalist Progress Note ---
Date of Service November 27, 2021 Assessment & Plan (1) COVID-19: Plan: Acute hypoxic respiratory failure due to COVID-19 pneumonia Tested positive to COVID 19 on 10/27/21 Initially completed course of remdesivir and dexamethasone Did not meet criteria for baricitinib as patient was already admitted for more than 72 hours Acute worsening respiratory status CT PE did not show any PE but showed progression of bilateral opacities, small amount of pneumomediastinum and small bilateral pleural effusion. Concern for firbrosis per crit team. Had previously completed cefepime and doxycycline. Intubated on 11/20/21 --> 11/26/2021 tracheostomy status, on mechanical ventilation being managed per critical care team. Per prior attending: On 11/20/21, I called [facility] and spoke with Dr. Samson. We discussed patient. Unfortunately, patient is not an ECMO candidate MRSA swab is negative Patient on late DEXA ARDS protocol. Carpenter Helper on board managing vent and sedation Acute Hyponatremia FRANDY likely related to hypotension - resolved Hyponatremia improving Monitor BMP Hx DVT, Factor V Leiden Has mild edema of the left lower extremity, chronic per patient Doppler ultrasound done during this admission: nonocclusive thrombus present within the common femoral vein and the proximal to mid superficial femoral vein- chronic per Radiologist Coumadin on hold Heparin changed to therapeutic lovenox Dyslipidemia Plan to resume Atorvastatin on dc Disposition ICU Poor prognosis Per prior attending: called and updated. 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 (2) Nausea vomiting and diarrhea: Admission and Anticipated Discharge Date Admission Date: November 03, 2021 Subjective Patient was lying in bed, sedated and mechanically ventilated, tracheostomy status. Per RN no acute events overnight. Patient is a still requiring pressure support. Plan is to wean down on sedation. ROS not assessable. Physical Exam Physical Exam: GENERAL: Sedated, tracheostomy status, on mechanical ventilation HEENT: No pallor, no icterus. Pupils equal, round and reactive to light. Oral mucosa moist. NECK: No JVD, no neck masses. HEART: S1 and S2 heard. Regular rate and rhythm. No murmur, no gallop. RESPIRATORY SYSTEM: Normal AP diameter. No accessory muscle use. No wheezing, increased breath sounds bilaterally with crackles. ABDOMEN: Soft, bowel sounds present, no distention. CENTRAL NERVOUS SYSTEM: n/a EXTREMITIES: 2+ LLE edema,RLE trace edema, no erythema seen. Vaughn catheter with yellow urine collection. Results & Data Results & Data ([facility]) Vital Signs (Past 12 Hours) Vital Signs Temp Pulse Resp BP Pulse Ox 11/27/21 11:20 100 H 35 H 94 11/27/21 08:36 109 H 29 H 91 11/27/21 08:00 109 H 115/64 11/27/21 06:30 38.1 C H 89 27 H 110/52 L 93 11/27/21 06:15 38.1 C H 86 27 H 110/55 L 93 11/27/21 06:00 38.1 C H 91 H 28 H 100/51 L 93 11/27/21 05:45 38.2 C H 97 H 29 H 104/52 L 93 11/27/21 05:30 38.2 C H 121 H 32 H 93/55 L 92 11/27/21 05:15 38.3 C H 100 H 27 H 103/52 L 92 11/27/21 05:00 38.3 C H 99 H 28 H 102/51 L 91 11/27/21 04:54 37.5 C 11/27/21 04:53 38.3 C H 102 H 29 H 110/53 L 90 11/27/21 04:45 38.3 C H 111 H 28 H 112/57 L 90 11/27/21 04:30 38.3 C H 114 H 31 H 114/60 90 11/27/21 04:00 38.3 C H 124 H 37 H 109/63 90 11/27/21 03:45 38.3 C H 113 H 29 H 112/59 L 93 11/27/21 03:30 38.3 C H 117 H 38 H 107/52 L 93
[2021-11-27] MEDS: METOPROLOL TARTRATE 25 MG TAB PO SCH ×3 (17:28→21:40)
[2021-11-27] MEDS: ACETAMINOPHEN SUSP 500 MG/15.6 ML UDP PO PRN (18:16)
[2021-11-27] MEDS ORDERED: METOPROLOL TARTRATE 25 MG TAB PO SCH (21:00)
[2021-11-27] MEDS ORDERED: INSULIN GLARGINE SOLOSTAR 100 UNITS/ML 3 ML PEN SC ONE (21:00)
[2021-11-28] MEDS: INSULIN ASPART PER UNIT SC SCH ×6 (00:48→20:08)
[2021-11-28] MEDS: ENOXAPARIN 80 MG/0.8 ML SYR SQ SCH ×3 (00:50→23:00)
[2021-11-28] MEDS: TUBE FEEDING WATER FLUSH OG SCH ×6 (04:13→22:13)
[2021-11-28 04:49] LABS: iSTAT Art Bld Gas pCO2 Correct 62 mmHg (35-46); iSTAT Art Bld Gas pH Corrected 7.365 (7.35-7.45); iSTAT Arterial Blood Gas HCO3 35 meg/L (19-24); iSTAT Arterial Blood Gas pCO2 61 mmHg (35-46); iSTAT Arterial Blood Gas pH 7.37 (7.35-7.45); iSTAT Arterial Blood Gas pO2 65 mmHg (80-95); iSTAT Arterial Blood Gas pO2 C 67; iSTAT Carbon Dioxide 37 mmol/L (24-31); iSTAT FiO2 70 %; iSTAT Hematocrit 34 % (42-52); iSTAT Hemoglobin 11.6 g/dl (14.0-18.0); iSTAT Potassium 4.8 mmol/L (3.3-5.0); iSTAT Site Art Line; iSTAT Sodium 130 mmol/L (135-144)
[2021-11-28] MEDS: oxyCODONE HCL IR 5 MG TAB (IMMEDIATE RELEASE) PO SCH ×4 (04:50→22:06)
[2021-11-28 05:40] LABS: Basophils # (auto) 0.01 K/uL (0-0.2); Basophils % (auto) 0.1 %; Eosinophils # (auto) 0.06 K/uL (0-0.5); Eosinophils % (auto) 0.4 %; Hematocrit (blood only) 35.9 % (42-52); Hemoglobin 11.4 g/dL (14.0-18.0); Immature Granulocytes # (auto) 0.09 K/uL (0.00-0.02); Immature Granulocytes % (auto) 0.5 %; Lymphocytes # (auto) 1.39 K/uL (1.2-3.4); Lymphocytes % (auto) 8.2 %; Mean Corpuscular Hemoglobin 29.3 pg (25-34); Mean Corpuscular Hgb Conc 31.8 g/dL (32-36); Mean Corpuscular Volume 92.3 fL (80-100); Mean Platelet Volume 9.5 fL (7.4-10.4); Monocytes # (auto) 0.68 K/uL (0.11-0.59); Neutrophils # (auto) 14.71 K/uL (1.4-6.5); Neutrophils % (auto) 86.8 %; Platelet Count 289 K/uL (130-400); RDW Coefficient of Variation 15.1 % (11.5-14.5); RDW Standard Deviation 51.2 fL (36.4-46.3); Red Blood Count 3.89 M/uL (4.7-6.1); White Blood Count 16.94 K/uL (4.8-10.8)
[2021-11-28 06:09] LABS: Albumin Level 2.5 gm/dl (3.4-5.0); BUN Creatinine Ratio 32.5 (10-20); Bilirubin Direct 0.6 mg/dl (0-0.2); Calcium 9.3 mg/dl (8.5-10.1); Creatinine Clr Calc Pharmacy 71.5 ml/min; Est GFR (African American) 86.3 ml/min; Est GFR (Non-African American) 74.4 ml/min; Magnesium 2.4 mg/dl (1.8-2.4); Potassium 4.5 mmol/L (3.5-5.1)
[2021-11-28 06:12] LABS: Phosphorus 3.1 mg/dl (2.5-4.9); Total Protein 7.3 gm/dl (6.4-8.2)
--- NOTE | 2021-11-28 07:32 | XRay Report ---
XR chest 1V portable CLINICAL HISTORY: Resp failure. COMPARISON STUDY: 11/27/2021 TECHNIQUE: 1 view of the chest FINDINGS: Single frontal view of the chest demonstrates the cardiomediastinal silhouette to be within normal li mits. Tubes and catheters are unchanged. Compared to previous examination, extensive interstitial and alveolar opacities are again seen bilaterally, left greater than right. The findings are essentially unchanged. Asymmetric haziness at the left lung base is also suspicion for left pleural effusion. Th ere is no evidence for vascular congestion. There is no acute osseous pathology. IMPRESSION: Compared to the previous examination, extensive interstitial and alveolar opacities are a gain seen bilaterally, left greater than right. There is also suspicion of small left pleural effusio n. ACT 112: Negative or not required by law. Electronically signed by: El Rebolledo M.D. 11/28/2021 7:31 AM
[2021-11-28] MEDS: MULTI VIT W/MINERALS LIQUID 15 ML UDP NG SCH (08:41)
[2021-11-28] MEDS: METOPROLOL TARTRATE 25 MG TAB PO SCH (08:42)
[2021-11-28] MEDS: DEXAMETHASONE IV SCH (09:00)
[2021-11-28] MEDS ORDERED: LACTULOSE SYRUP 20 GM/30 ML UDC PO ONE (10:21)
--- NOTE | 2021-11-28 10:21 | Critical Care Progress Note ---
Date of Service November 28, 2021 Assessment & Plan (1) Acute hypoxemic respiratory failure due to COVID-19: (2) 2019 novel coronavirus-infected pneumonia (NCIP): (3) Factor V Leiden carrier: (4) Pneumomediastinum: Plan: Neuro: Sedation: Versed infusion -Decrease Versed to off -Add Seroquel Analgesia: fentanyl: Discontinued today -Oxycodone taper Cardiovascular: Hypotension resolved Respiratory: CT chest 11/19/2021 personally reviewed: Diffuse patchy opacities appreciated bilaterally upper and lower lobes I do think there is a component of fibrosis to certain degree Bilateral pleural effusion small No significant mediastinal lymphadenopathy -- VDRF Likely secondary to Acute hypoxic respiratory failure Secondary to multilobar COVID-19 pneumonia Patient has very poor compliance. Continue with ventilatory support Intubation 11/20 Tracheostomy 11/26 postop day 2 Ventilator settings reviewed attempt to wean FiO2 as tolerated AC 26 350, PEEP 3 FiO2 70% -Initiate pressure support ventilation today COVID-19 + 11/03/2021 No central PE on CTA 11/19/2021 Patient was started on late DEXA ARDS protocol -Transition from 10 mg daily to 7.5 mg x 3 days then 5 mg x 3 days then 2.5 mg x 3 days then stop Patient is not a candidate for ECMO Renal: -- FRANDY: Resolved Likely from initial hypotensive episode. Monitor BUN/creatinine Avoid nephrotoxic medications Strict ins and outs --S/p acute hyponatremia: Resolved S/p 100 mL hypertonic saline on 11/21/2021 --Constipation -Methylnaltrexone x2 doses -Colace twice daily -Lactulose x1 --Pulmonary hypertension Type III likely from pulmonary fibrosis likely developing from COVID-19 pneumonia --Pneumomediastinum Small --Febrile illness -Blood cultures no growth to date -UA ordered -Vaughn out transition to [place] cath -Tracheal aspirate C and S --History of factor Leiden deficiency Lovenox 80 mg every 12 --History of dyslipidemia --Prophylaxis VTE: Lovenox GI: Protonix transition from twice daily to once daily Lines: Left IJ discontinue today, right radial discontinued positive Vaughn Diet: Tube feedings increasing to goal Patient's [phone] After discussion with family: Continue current level medical/life support, however in event of cardiac arrest will not undergo heroic measures DNR in event of cardiac arrest Admission and Anticipated Discharge Date Admission Date: November 03, 2021 Supervising Physician Co-Signing Physician Notes I have personally spent 40 minutes of critical care time in the direct management of this patient. This is a life/limb threatening event. This includes time spent evaluating patient, direct bedside care, chart review, placing orders, interpretation of diagnostic studies, discussion with consultants, patient, and/or family members regarding treatment decisions, as well as other required patient management activities. This time is exclusive of all separately billable procedures, and teaching time and separate from and in addition to any other critical care service time. Subjective Continued tachycardia however hypotension resolved Review of Systems Review of Systems: unable to obtain due to trachesotomy tube Physical Exam Physical Exam: General: Localizes to stimuli eyes open. Skin: Warm, dry, Head: Atraumatic Ears, nose, mouth and throat: airway airway patent, tracheostomy tube in place Cardiovascular: Normal peripheral perfusion, tachycardic Respiratory: Ventilator settings reviewed Gastrointestinal: Non distended Musculoskeletal: No deformity Results & Data Results & Data ([facility]) Vital Signs (Past 12 Hours) Vital Signs Temp Pulse Resp BP Pulse Ox 11/28/21 08:00 106 H 29 H 90 11/28/21 06:30 37.4 C 107 H 27 H 115/73 91 11/28/21 06:00 37.3 C 103 H 26 H 106/61 91 11/28/21 05:30 37.4 C 116 H 34 H 111/63 88 L 11/28/21 05:00 37.4 C 122 H 35 H 131/69 89 L 11/28/21 04:30 37.5 C 117 H 32 H 122/70 88 L 11/28/21 04:10 121 H 35 H 89 L 11/28/21 04:00 37.6 C H 118 H 29 H 132/62 89 L 11/28/21 03:30 37.6 C H 115 H 27 H 120/71 89 L 11/28/21 03:00 37.7 C H 117 H 28 H 114/65 90 11/28/21 02:30 37.8 C H 120 H 28 H 127/60 87 L 11/28/21 02:00 37.9 C H 122 H 30 H 135/72 87 L 11/28/21 01:30 37.9 C H 124 H 29 H 127/75 89 L 11/28/21 01:00 38.1 C H 113 H 25 H 117/69 89 L 11/28/21 00:30 38.2 C H 122 H 31 H 152/73 H 89 L 11/28/21 00:00 38.2 C H 112 H 29 H 112/70 94 11/27/21 23:30 38.0 C H 106 H 24 103/69 89 L 11/27/21 23:00 37.9 C H 120 H 35 H 144/77 H 89 L 11/27/21 22:30 37.8 C H 115 H 30 H 138/80 89 L 11/27/21 22:15 37.8 C H 111 H 33 H 116/74 88 L Laboratory Results 11/28/21 11/28/21 11/28/21 Range/Units 08:52 05:10 05:10 WBC 16.94 H (4.8-10.8) K/uL RBC 3.89 L (4.7-6.1) M/uL Hgb 11.4 L (14.0-18.0) g/dL POC Hgb (14.0-18.0) g/dl Hct 35.9 L (42-52) % POC Hct (42-52) % MCV 92.3 (80-100) fL MCH 29.3 (25-34) pg MCHC 31.8 L (32-36) g/dL RDW Std Deviation 51.2 H (36.4-46.3) fL RDW Coeff of Robby 15.1 H (11.5-14.5) % Plt Count 289 (130-400) K/uL MPV 9.5 (7.4-10.4) fL Immature Gran % (Auto) 0.5 % Neut % (Auto) 86.8 % Lymph % (Auto) 8.2 % Chester % (Auto) 4.0 % Eos % (Auto) 0.4 % Baso % (Auto) 0.1 % Neut # (Auto) 14.71 H (1.4-6.5) K/uL Lymph # (Auto) 1.39 (1.2-3.4) K/uL Chester # (Auto) 0.68 H (0.11-0.59) K/uL Eos # (Auto) 0.06 (0-0.5) K/uL Baso # (Auto) 0.01 (0-0.2) K/uL Immature Gran # (Auto) 0.09 H (0.00-0.02) K/uL Sample Site POC pH (7.35-7.45) POC pCO2 (35-46) mmHg POC pO2 (80-95) mmHg POC HCO3 (19-24) feliz/L POC Total CO2 (24-31) mmol/L POC Base Excess (-9-1.8) feliz/L ABG pH (Temp Correct) (7.35-7.45) ABG pCO2 (Temp Corrct (35-46) mmHg POC ABG pO2 at Pt Temp POC ABG O2 Sat (90-95) % Francisco Test O2 Delivery Device POC O2 Rate Minute Ventilation POC FiO2 % Tidal Volume PEEP POC Sodium (135-144) mmol/L Sodium 131 L (136-145) mmol/L POC Potassium (3.3-5.0) mmol/L Potassium 4.5 (3.5-5.1) mmol/L Chloride 95 L (98-107) mmol/L Carbon Dioxide 31 (21-32) mmol/L Anion Gap 5.0 (3-11) BUN 35 H (7-18) mg/dl Creatinine 1.09 (0.6-1.4) mg/dl Est Cr Clr Drug Dosing 71.5 ml/min Est GFR ( Amer) 86.3 ml/min Est GFR (Non-Af Amer) 74.4 ml/min BUN/Creatinine Ratio 32.5 H (10-20) Glucose 134 H (70-99) mg/dl POC Glucose 122 H (70-99) mg/dl POC Glucose (other) (70-99) mg/dl Calcium 9.3 (8.5-10.1) mg/dl Phosphorus 3.1 (2.5-4.9) mg/dl Magnesium 2.4 (1.8-2.4) mg/dl Total Bilirubin 1.0 (0.2-1) mg/dl Direct Bilirubin 0.6 H (0-0.2) mg/dl AST 27 (15-37) U/L ALT 49 (12-78) Alkaline Phosphatase 91 (45-117) U/L Total Protein 7.3 (6.4-8.2) gm/dl Albumin 2.5 L (3.4-5.0) gm/dl Procalcitonin (0-0.5) ng/ml 11/28/21 11/28/21 11/28/21 Range/Units 04:41 04:36 00:45 WBC (4.8-10.8) K/uL RBC (4.7-6.1) M/uL Hgb (14.0-18.0) g/dL POC Hgb 11.6 L (14.0-18.0) g/dl Hct (42-52) % POC Hct 34 L (42-52) % MCV (80-100) fL MCH (25-34) pg MCHC (32-36) g/dL RDW Std Deviation (36.4-46.3) fL RDW Coeff of Robby (11.5-14.5) % Plt Count (130-400) K/uL MPV (7.4-10.4) fL Immature Gran % (Auto) % Neut % (Auto) % Lymph % (Auto) % Chester % (Auto) % Eos % (Auto) % Baso % (Auto) % Neut # (Auto) (1.4-6.5) K/uL Lymph # (Auto) (1.2-3.4) K/uL Chester # (Auto) (0.11-0.59) K/uL Eos # (Auto) (0-0.5) K/uL Baso # (Auto) (0-0.2) K/uL Immature Gran # (Auto) (0.00-0.02) K/uL Sample Site Art Line POC pH 7.37 (7.35-7.45) POC pCO2 61 H (35-46) mmHg POC pO2 65 L (80-95) mmHg POC HCO3 35 H (19-24) feliz/L POC Total CO2 37 H (24-31) mmol/L POC Base Excess 10.0 H (-9-1.8) feliz/L ABG pH (Temp Correct) 7.365 (7.35-7.45) ABG pCO2 (Temp Corrct 62 H (35-46) mmHg POC ABG pO2 at Pt Temp 67 POC ABG O2 Sat 91.0 (90-95) % Francisco Test NA O2 Delivery Device Ventilator POC O2 Rate 26 Minute Ventilation 12 POC FiO2 70 % Tidal Volume 350 PEEP 3 POC Sodium 130 L (135-144) mmol/L Sodium (136-145) mmol/L POC Potassium 4.8 (3.3-5.0) mmol/L Potassium (3.5-5.1) mmol/L Chloride (98-107) mmol/L Carbon Dioxide (21-32) mmol/L Anion Gap (3-11) BUN (7-18) mg/dl Creatinine (0.6-1.4) mg/dl Est Cr Clr Drug Dosing ml/min Est GFR ( Amer) ml/min Est GFR (Non-Af Amer) ml/min BUN/Creatinine Ratio (10-20) Glucose (70-99) mg/dl POC Glucose 128 H 115 H (70-99) mg/dl POC Glucose (other) (70-99) mg/dl Calcium (8.5-10.1) mg/dl Phosphorus (2.5-4.9) mg/dl Magnesium (1.8-2.4) mg/dl Total Bilirubin (0.2-1) mg/dl Direct Bilirubin (0-0.2) mg/dl AST (15-37) U/L ALT (12-78) Alkaline Phosphatase (45-117) U/L Total Protein (6.4-8.2) gm/dl Albumin (3.4-5.0) gm/dl Procalcitonin (0-0.5) ng/ml 11/27/21 11/27/21 11/27/21 Range/Units 20:26 16:03 13:45 WBC (4.8-10.8) K/uL RBC (4.7-6.1) M/uL Hgb (14.0-18.0) g/dL POC Hgb (14.0-18.0) g/dl Hct (42-52) % POC Hct (42-52) % MCV (80-100) fL MCH (25-34) pg MCHC (32-36) g/dL RDW Std Deviation (36.4-46.3) fL RDW Coeff of Robby (11.5-14.5) % Plt Count (130-400) K/uL MPV (7.4-10.4) fL Immature Gran % (Auto) % Neut % (Auto) % Lymph % (Auto) % Chester % (Auto) % Eos % (Auto) % Baso % (Auto) % Neut # (Auto) (1.4-6.5) K/uL Lymph # (Auto) (1.2-3.4) K/uL Chester # (Auto) (0.11-0.59) K/uL Eos # (Auto) (0-0.5) K/uL Baso # (Auto) (0-0.2) K/uL Immature Gran # (Auto) (0.00-0.02) K/uL Sample Site POC pH (7.35-7.45) POC pCO2 (35-46) mmHg POC pO2 (80-95) mmHg POC HCO3 (19-24) feliz/L POC Total CO2 (24-31) mmol/L POC Base Excess (-9-1.8) feliz/L ABG pH (Temp Correct) (7.35-7.45) ABG pCO2 (Temp Corrct (35-46) mmHg POC ABG pO2 at Pt Temp POC ABG O2 Sat (90-95) % Francisco Test O2 Delivery Device POC O2 Rate Minute Ventilation POC FiO2 % Tidal Volume PEEP POC Sodium (135-144) mmol/L Sodium (136-145) mmol/L POC Potassium (3.3-5.0) mmol/L Potassium (3.5-5.1) mmol/L Chloride (98-107) mmol/L Carbon Dioxide (21-32) mmol/L Anion Gap (3-11) BUN (7-18) mg/dl Creatinine (0.6-1.4) mg/dl Est Cr Clr Drug Dosing ml/min Est GFR ( Amer) ml/min Est GFR (Non-Af Amer) ml/min BUN/Creatinine Ratio (10-20) Glucose (70-99) mg/dl POC Glucose 148 H 139 H (70-99) mg/dl POC Glucose (other) (70-99) mg/dl Calcium (8.5-10.1) mg/dl Phosphorus (2.5-4.9) mg/dl Magnesium (1.8-2.4) mg/dl Total Bilirubin (0.2-1) mg/dl Direct Bilirubin (0-0.2) mg/dl AST (15-37) U/L ALT (12-78) Alkaline Phosphatase (45-117) U/L Total Protein (6.4-8.2) gm/dl Albumin (3.4-5.0) gm/dl Procalcitonin 1.18 H (0-0.5) ng/ml 11/27/21 Range/Units 11:40 WBC (4.8-10.8) K/uL RBC (4.7-6.1) M/uL Hgb (14.0-18.0) g/dL POC Hgb (14.0-18.0) g/dl Hct (42-52) % POC Hct (42-52) % MCV (80-100) fL MCH (25-34) pg MCHC (32-36) g/dL RDW Std Deviation (36.4-46.3) fL RDW Coeff of Robby (11.5-14.5) % Plt Count (130-400) K/uL MPV (7.4-10.4) fL Immature Gran % (Auto) % Neut % (Auto) % Lymph % (Auto) % Chester % (Auto) % Eos % (Auto) % Baso % (Auto) % Neut # (Auto) (1.4-6.5) K/uL Lymph # (Auto) (1.2-3.4) K/uL Chester # (Auto) (0.11-0.59) K/uL Eos # (Auto) (0-0.5) K/uL Baso # (Auto) (0-0.2) K/uL Immature Gran # (Auto) (0.00-0.02) K/uL Sample Site POC pH (7.35-7.45) POC pCO2 (35-46) mmHg POC pO2 (80-95) mmHg POC HCO3 (19-24) feliz/L POC Total CO2 (24-31) mmol/L POC Base Excess (-9-1.8) feliz/L ABG pH (Temp Correct) (7.35-7.45) ABG pCO2 (Temp Corrct (35-46) mmHg POC ABG pO2 at Pt Temp POC ABG O2 Sat (90-95) % Francisco Test O2 Delivery Device POC O2 Rate Minute Ventilation POC FiO2 % Tidal Volume PEEP POC Sodium (135-144) mmol/L Sodium (136-145) mmol/L POC Potassium (3.3-5.0) mmol/L Potassium (3.5-5.1) mmol/L Chloride (98-107) mmol/L Carbon Dioxide (21-32) mmol/L Anion Gap (3-11) BUN (7-18) mg/dl Creatinine (0.6-1.4) mg/dl Est Cr Clr Drug Dosing ml/min Est GFR ( Amer) ml/min Est GFR (Non-Af Amer) ml/min BUN/Creatinine Ratio (10-20) Glucose (70-99) mg/dl POC Glucose (70-99) mg/dl POC Glucose (other) 139 H (70-99) mg/dl Calcium (8.5-10.1) mg/dl Phosphorus (2.5-4.9) mg/dl Magnesium (1.8-2.4) mg/dl Total Bilirubin (0.2-1) mg/dl Direct Bilirubin (0-0.2) mg/dl AST (15-37) U/L ALT (12-78) Alkaline Phosphatase (45-117) U/L Total Protein (6.4-8.2) gm/dl Albumin (3.4-5.0) gm/dl Procalcitonin (0-0.5) ng/ml Coding Level of Care Code Critical Care 1st 30-74 mins Diagnoses Acute hypoxemic respiratory failure due to COVID-19 U07.1; J96.01 2019 novel coronavirus-infected pneumonia (NCIP) U07.1; J12.82 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
[2021-11-28] MEDS: PANTOprazole 40 MG in SYRINGE 0 ML IV SCH (10:39)
[2021-11-28] MEDS: METHYLNALTREXONE BROMIDE 12 MG/0.6 ML VIAL SQ SCH (10:41)
[2021-11-28] MEDS ORDERED: QUEtiapine FUMARATE 25 MG TABLET PO ONE (11:30)
--- NOTE | 2021-11-28 12:11 | Pharmacy Report ---
Pharmacy Glycemic Short Note 2 - Date of Service November 28, 2021 - Glycemic Short BSG Results (Last 24 hours): 11/27/21 11/27/21 11/28/21 16:03 20:26 00:45 Glucose POC Glucose 139 H 148 H 115 H 11/28/21 11/28/21 11/28/21 04:41 05:10 08:52 Glucose 134 H POC Glucose 128 H 122 H OUTPATIENT ANTIDIABETIC REGIMEN: * n/a * A1c 6.0% ASSESSMENT: 11/28: * BSGs again well controlled over last 24 hrs. 5 units SQ insulin given in last 24 hrs to cover carbs in continuous tube feeds. * Patient remains on vent s/p trach, tube feeds are running at 50cc/hr (Peptamen VHP), pressors have been weaned off and IV dexamethasone dose reduced 25% today. * No need for addition of basal insulin given current BSG pattern. May be able to wean Novolog doses down with each step down in steroid dose. Pt has no prior h/o DM and A1c only consistent w/ "pre-DM" 11/27: * BSGs well controlled the last 24hr despite receiving 0 units of insulin yesterday. * S/p trach. Norepi rate increased this AM. Peptamen being titrated to goal. Dexamethasone 10mg given today, however dex taper to start tomorrow. * No change to insulin regimen today. Lantus scale for tonight pending BSG. 11/26 * BSGs well controlled over last 24 hrs * Patient remains on [facility] vent but is now s/p trach, sedation regimen adjusted today, norepi weaned off this AM, tube feeds continue at trickle rates (Peptamen VHP @10cc/hr), and dexamethasone 10mg IV Q AM continues. * Will refrain from giving additional basal today, unless BSGs do climb > 170 11/25 * Patient remains intubated, sedated, receiving norepi at 0.04mcg/kg/min as well as high dose IV steroids and tube feeds at "trickle" rates. * BSGs fairly well controlled over last 24 hrs however pt did require 7 units correctional insulin. Will give low dose Lantus x 1 today as stressors unlikely to change. PLAN FOR INPATIENT GLYCEMIC CONTROL: * No basal insulin * NovoLog per scale Q4hrs * Goal range 110-140 mg/dl * CF = 30 mg/dl/unit * CR = 10g/unit
--- NOTE | 2021-11-28 13:48 | Hospitalist Progress Note ---
Date of Service November 28, 2021 Assessment & Plan (1) COVID-19: Plan: Acute hypoxic respiratory failure due to COVID-19 pneumonia Tested positive to COVID 19 on 10/27/21 Initially completed course of remdesivir and dexamethasone Did not meet criteria for baricitinib as patient was already admitted for more than 72 hours Acute worsening respiratory status CT PE did not show any PE but showed progression of bilateral opacities, small amount of pneumomediastinum and small bilateral pleural effusion. Concern for firbrosis per crit team. Had previously completed cefepime and doxycycline. Intubated on 11/20/21 --> 11/26/2021 tracheostomy status, on mechanical ventilation being managed per critical care team. Per prior attending: On 11/20/21, I called [facility] and spoke with Dr. Samson. We discussed patient. Unfortunately, patient is not an ECMO candidate MRSA swab is negative Patient on late DEXA ARDS protocol. Rn Diabetes Educator on board managing vent and sedation Acute Hyponatremia FRANDY likely related to hypotension - resolved Hypotension - resolved Hyponatremia improving/stable Monitor BMP Hx DVT, Factor V Leiden Has mild edema of the left lower extremity, chronic per patient Doppler ultrasound done during this admission: nonocclusive thrombus present within the common femoral vein and the proximal to mid superficial femoral vein- chronic per Radiologist Coumadin on hold Heparin changed to therapeutic lovenox Dyslipidemia Plan to resume Atorvastatin on dc Disposition ICU Poor prognosis Per prior attending: called and updated. reported as she already discussed with the brim cutter and will likely proceed with tracheostomy at some point. (2) Nausea vomiting and diarrhea: Admission and Anticipated Discharge Date Admission Date: November 03, 2021 Subjective Patient lying in bed, sedated and mechanically ventilated, tracheostomy status, can blink eyes on commands, denies any pain. ROS n/a. Per RN, no new acute events overnight, had large bowel movement, followed commands when off sedation. Physical Exam Physical Exam: GENERAL: Sedated, tracheostomy status, on mechanical ventilation HEENT: No pallor, no icterus. Pupils equal, round and reactive to light. Oral mucosa moist. NECK: No JVD, no neck masses. HEART: S1 and S2 heard. Regular rate and rhythm. No murmur, no gallop. RESPIRATORY SYSTEM: Normal AP diameter. No accessory muscle use. No wheezing, increased breath sounds bilaterally with crackles. ABDOMEN: Soft, bowel sounds present, no distention. CENTRAL NERVOUS SYSTEM: n/a EXTREMITIES: 2+ LLE edema,RLE trace edema, no erythema seen. Vaughn catheter with yellow urine collection. Results & Data Results & Data ([facility]) Vital Signs (Past 12 Hours) Vital Signs Temp Pulse Resp BP Pulse Ox 11/28/21 10:54 111 H 35 H 89 L 11/28/21 08:00 106 H 29 H 90 11/28/21 06:30 37.4 C 107 H 27 H 115/73 91 11/28/21 06:00 37.3 C 103 H 26 H 106/61 91 11/28/21 05:30 37.4 C 116 H 34 H 111/63 88 L 11/28/21 05:00 37.4 C 122 H 35 H 131/69 89 L 11/28/21 04:30 37.5 C 117 H 32 H 122/70 88 L 11/28/21 04:10 121 H 35 H 89 L 11/28/21 04:00 37.6 C H 118 H 29 H 132/62 89 L 11/28/21 03:30 37.6 C H 115 H 27 H 120/71 89 L 11/28/21 03:00 37.7 C H 117 H 28 H 114/65 90 11/28/21 02:30 37.8 C H 120 H 28 H 127/60 87 L 11/28/21 02:00 37.9 C H 122 H 30 H 135/72 87 L
[2021-11-28] MEDS: fentaNYL citrate 100 MCG/2 ML VIAL IV PRN ×3 (14:02→20:09)
[2021-11-28 15:05] LABS: Appearance Urine Cloudy (Clear); Bacteria Urine Automated Negative (Negative); Bilirubin Urine Negative (Negative); Blood Urine 3+ (Negative); Color Urine Yellow; Epithelial Cell Urine Auto 20-30 /lpf (0-5); Glucose Urine UA Negative (Negative); Ketones Urine Negative (Negative); Leukocyte Esterase Urine Negative (Negative); Nitrite Urine Negative (Negative); Protein Urine 1+ (Negative); Specific Gravity Urine 1.018 (1.000-1.030); Urobilinogen Urine Negative (Negative); pH Urine 5.5 (4.5-7.5)
[2021-11-28] MEDS ORDERED: METOPROLOL TARTRATE 25 MG TAB PO ONE (15:35)
[2021-11-28 15:39] LABS: RBC Urine Automated >30 /hpf (0-4)
[2021-11-28] MEDS: PEPTAMEN INTENSE VHP 1.0 CAL 1,000 ML BAG OG SCH (16:52)
[2021-11-28] MEDS: METOPROLOL TARTRATE 50 MG TAB PO SCH (20:13)
[2021-11-28] MEDS: QUEtiapine FUMARATE 25 MG TABLET PO SCH (20:13)
[2021-11-28] MEDS ORDERED: DOCUSATE SODIUM 100 MG CAP PO SCH (21:00)
[2021-11-28] MEDS ORDERED: MIDAZOLAM HCL 1 MG/ML 2ML VIAL IV STA (22:01)
[2021-11-28] MEDS ORDERED: MIDAZOLAM HCL 1 MG/ML 2ML VIAL ONE (22:02)
[2021-11-28] MEDS ORDERED: STAT IV Infusion **Titration per Protocol STA (22:02)
[2021-11-28] MEDS: DOCUSATE SODIUM SYRUP 100 MG/10 ML UDC PO SCH (22:05)
[2021-11-28] MEDS: DEXMEDETOMIDINE HCL 200 MCG in SODIUM CHLORIDE 0.9% 48 ML IV SCH (22:54)
[2021-11-29] MEDS: INSULIN ASPART PER UNIT SC SCH ×7 (01:21→23:50)
[2021-11-29] MEDS: TUBE FEEDING WATER FLUSH OG SCH ×6 (03:12→22:52)
[2021-11-29] MEDS: oxyCODONE HCL IR 5 MG TAB (IMMEDIATE RELEASE) PO SCH ×4 (04:20→22:51)
[2021-11-29] MEDS: DEXMEDETOMIDINE HCL 200 MCG in SODIUM CHLORIDE 0.9% 48 ML IV SCH ×5 (04:21→22:52)
[2021-11-29 04:47] LABS: iSTAT Allen Test Pass; iSTAT Art Bld Gas pCO2 Correct 66 mmHg (35-46); iSTAT Art Bld Gas pH Corrected 7.311 (7.35-7.45); iSTAT Arterial Blood Gas HCO3 33 meg/L (19-24); iSTAT Arterial Blood Gas pCO2 66 mmHg (35-46); iSTAT Arterial Blood Gas pH 7.31 (7.35-7.45); iSTAT Arterial Blood Gas pO2 75 mmHg (80-95); iSTAT Arterial Blood Gas pO2 C 75; iSTAT Carbon Dioxide 35 mmol/L (24-31); iSTAT FiO2 100 %; iSTAT Hematocrit 60 % (42-52); iSTAT Hemoglobin 20.4 g/dl (14.0-18.0); iSTAT Potassium 4.6 mmol/L (3.3-5.0); iSTAT Site R Radial; iSTAT Sodium 132 mmol/L (135-144)
[2021-11-29 05:10] LABS: Basophils # (auto) 0.01 K/uL (0-0.2); Basophils % (auto) 0.1 %; Eosinophils # (auto) 0.07 K/uL (0-0.5); Eosinophils % (auto) 0.4 %; Hematocrit (blood only) 34.8 % (42-52); Hemoglobin 10.9 g/dL (14.0-18.0); Immature Granulocytes % (auto) 0.5 %; Lymphocytes # (auto) 0.78 K/uL (1.2-3.4); Lymphocytes % (auto) 4.2 %; Mean Corpuscular Hemoglobin 29.1 pg (25-34); Mean Corpuscular Hgb Conc 31.3 g/dL (32-36); Mean Platelet Volume 9.8 fL (7.4-10.4); Monocytes # (auto) 0.94 K/uL (0.11-0.59); Neutrophils # (auto) 16.82 K/uL (1.4-6.5); Neutrophils % (auto) 89.8 %; Platelet Count 314 K/uL (130-400); Red Blood Count 3.74 M/uL (4.7-6.1); White Blood Count 18.72 K/uL (4.8-10.8)
[2021-11-29 05:42] LABS: BUN Creatinine Ratio 47.4 (10-20); Calcium 9.4 mg/dl (8.5-10.1); Creatinine Clr Calc Pharmacy 67.2 ml/min; Magnesium 2.4 mg/dl (1.8-2.4); Potassium 4.6 mmol/L (3.5-5.1)
[2021-11-29 05:55] LABS: Phosphorus 2.3 mg/dl (2.5-4.9)
--- NOTE | 2021-11-29 07:41 | XRay Report ---
XR chest 1V portable HISTORY: 56 years-old Male Resp failure acute respiratory failure COMPARISON: Chest radiograph 11/28/2021 TECHNIQUE: Portable AP view of the chest FINDINGS: Cardiac silhouette is enlarged. Tracheostomy cannula overlies the midline. Interval removal of the le ft IJ central venous catheter. Partially imaged feeding tube distal tip is noted in the expected loca tion of the distal stomach. Suspected small pleural effusions. No pneumothorax. Extensive left greate r than right airspace opacities with interstitial coarsening appears stable from prior. Degenerative changes of the shoulders and spine. IMPRESSION: 1. Stable positioning of the tracheostomy cannula and feeding tube with interval removal of the left IJ central venous catheter. 2. Unchanged extensive left greater than right pulmonary opacities. 3. No pneumothorax. ACT 112: Negative or not required by law. The above report was generated using voice recognition software. It may contain grammatical, syntax o r spelling errors. Electronically signed by: Harjeet Styles M.D. 11/29/2021 7:40 AM
[2021-11-29] MEDS: MULTI VIT W/MINERALS LIQUID 15 ML UDP NG SCH (08:07)
[2021-11-29] MEDS: DEXAMETHASONE IV SCH (08:07)
[2021-11-29] MEDS: PANTOprazole 40 MG in SYRINGE 0 ML IV SCH (08:08)
[2021-11-29] MEDS: DOCUSATE SODIUM SYRUP 100 MG/10 ML UDC PO SCH ×2 (08:08→20:18)
[2021-11-29] MEDS: METOPROLOL TARTRATE 50 MG TAB PO SCH ×2 (08:09→20:18)
[2021-11-29] MEDS: QUEtiapine FUMARATE 25 MG TABLET PO SCH ×2 (08:10→20:19)
[2021-11-29] MEDS ORDERED: MoRPHine SULFATE 4 MG/ML 1 ML CARP\\VIAL IV STA (08:32)
[2021-11-29] MEDS ORDERED: MoRPHine SULFATE 4 MG/ML 1 ML CARP\\VIAL ONE (08:34)
[2021-11-29] MEDS ORDERED: ALBUMIN 25% 100 mL 25 GM/100 ML VIAL IV ONE (09:17)
[2021-11-29] MEDS ORDERED: STAT IV Infusion **Titration per Protocol STA (09:19)
[2021-11-29] MEDS: NOREPINEPHRINE/D5W 8 MG/508 ML BAG IV SCH (09:20)
[2021-11-29] MEDS ORDERED: NOREPINEPHRINE/D5W 8 MG/508 ML IV ONE (09:20)
[2021-11-29] MEDS ORDERED: MINERAL OIL 30 ML UDC PO ONE (10:30)
--- NOTE | 2021-11-29 10:33 | Critical Care Progress Note ---
Date of Service November 29, 2021 Assessment & Plan (1) Acute hypoxemic respiratory failure due to COVID-19: (2) 2019 novel coronavirus-infected pneumonia (NCIP): (3) Factor V Leiden carrier: (4) Pneumomediastinum: Plan: Neuro: Sedation: Versed infusion -Attempt to wean Versed -Seroquel Analgesia: Oxycodone taper Cardiovascular: Hypotension -Titrate Levophed as needed -25 mg albumin Respiratory: CT chest 11/19/2021 personally reviewed: Diffuse patchy opacities appreciated bilaterally upper and lower lobes I do think there is a component of fibrosis to certain degree Bilateral pleural effusion small No significant mediastinal lymphadenopathy -- VDRF Likely secondary to Acute hypoxic respiratory failure Secondary to multilobar COVID-19 pneumonia Patient has very poor compliance. Continue with ventilatory support Intubation 11/20 Tracheostomy 11/26 postop day 3 Increased PEEP and FiO2: 100% COVID-19 + 11/03/2021 No central PE on CTA 11/19/2021 Patient was started on late DEXA ARDS protocol -Transition from 10 mg daily to 7.5 mg x 3 days then 5 mg x 3 days then 2.5 mg x 3 days then stop Patient is not a candidate for ECMO Renal: -- FRANDY: Resolved Likely from initial hypotensive episode. Monitor BUN/creatinine Avoid nephrotoxic medications Strict ins and outs --S/p acute hyponatremia: Resolved S/p 100 mL hypertonic saline on 11/21/2021 --Constipation -Methylnaltrexone x2 doses -Colace twice daily -Mineral oil x1 --Pulmonary hypertension Type III likely from pulmonary fibrosis likely developing from COVID-19 pneumonia --Pneumomediastinum Small --Febrile illness -Blood cultures 11/27 no growth to date -UA largely unremarkable -Vaughn out 11/28 transition to [place] cath -Given increase in ventilator requirements will transition to empiric cefepime for 7 days -Cefepime day 1 -CT scan chest abdomen pelvis -Lipase and LFTs in a.m. --History of factor Leiden deficiency Lovenox 80 mg every 12 --History of dyslipidemia --Prophylaxis VTE: Lovenox GI: Protonix once daily Lines: Left IJ discontinue 11/28, right radial 11/28 Diet: Tube feedings at goal Patient's [phone] After discussion with family: Continue current level medical/life support, however in event of cardiac arrest will not undergo heroic measures DNR in event of cardiac arrest Admission and Anticipated Discharge Date Admission Date: November 03, 2021 Supervising Physician Co-Signing Physician Notes I have personally spent 45 minutes of critical care time in the direct management of this patient. This is a life/limb threatening event. This includes time spent evaluating patient, direct bedside care, chart review, placing orders, interpretation of diagnostic studies, discussion with consultants, patient, and/or family members regarding treatment decisions, as well as other required patient management activities. This time is exclusive of all separately billable procedures, and teaching time and separate from and in addition to any other critical care service time. Subjective Increasing FiO2 requirements overnight Review of Systems Review of Systems: unable to obtain due to trachesotomy tube Physical Exam Physical Exam: General: Alert following simple commands Skin: Warm, dry, Head: Atraumatic Ears, nose, mouth and throat: airway airway patent, tracheostomy tube in place Cardiovascular: Normal peripheral perfusion, tachycardic Respiratory: Ventilator settings reviewed Gastrointestinal: Non distended Musculoskeletal: No deformity Results & Data Results & Data ([facility]) Vital Signs (Past 12 Hours) Vital Signs Temp Pulse Pulse Resp BP BP Pulse Ox 11/29/21 10:07 113 H 11/29/21 09:56 101/63 11/29/21 09:43 86/47 L 11/29/21 09:30 87/54 L 11/29/21 09:20 72/46 L 11/29/21 08:30 38 H 97/53 L 82 L 11/29/21 08:04 115 H 38 H 85 L 11/29/21 08:00 37.0 C 121 H 30 H 138/65 86 L 11/29/21 07:00 111 H 39 H 106/58 L 88 L 11/29/21 06:00 96 H 31 H 89/51 L 92 11/29/21 05:30 100 H 22 85/59 L 91 11/29/21 05:00 108 H 37 H 115/59 L 92 11/29/21 04:30 107 H 31 H 101/54 L 92 11/29/21 04:00 37.3 C 110 H 33 H 120/55 L 89 L 11/29/21 03:30 114 H 35 H 97/52 L 89 L 11/29/21 03:00 114 H 32 H 97/52 L 91 11/29/21 02:30 114 H 32 H 102/57 L 90 11/29/21 02:00 109 H 31 H 102/58 L 90 11/29/21 01:45 114 H 31 H 109/63 90 11/29/21 01:30 107 H 28 H 108/84 87 L 11/29/21 01:15 123 H 38 H 126/69 90 11/29/21 01:00 120 H 29 H 97/62 L 93 11/29/21 00:45 114 H 34 H 83/49 L 93 11/29/21 00:30 101 H 24 89/46 L 92 11/29/21 00:15 109 H 33 H 83/45 L 92 11/29/21 00:05 102 H 29 H 91 11/29/21 00:00 96 H 27 H 78/48 L 91 11/28/21 23:46 108 H 28 H 98/53 L 91 11/28/21 23:45 107 H 29 H 76/56 L 90 11/28/21 23:30 105 H 30 H 91/55 L 92 11/28/21 23:15 101 H 29 H 95/54 L 91 11/28/21 23:09 37.8 C H 105 H 33 H 113/65 91 11/28/21 23:00 104 H 26 H 113/65 92 11/28/21 22:45 111 H 28 H 88/58 L 90 11/28/21 22:30 114 H 36 H 94/53 L 90 Critical Care Results & Data Vital Signs (Past 12 Hours) Vital Signs Temp Pulse Pulse Resp BP BP Pulse Ox 11/29/21 10:07 113 H 11/29/21 09:56 101/63 11/29/21 09:43 86/47 L 11/29/21 09:30 87/54 L 11/29/21 09:20 72/46 L 11/29/21 08:30 38 H 97/53 L 82 L 11/29/21 08:04 115 H 38 H 85 L 11/29/21 08:00 37.0 C 121 H 30 H 138/65 86 L 11/29/21 07:00 111 H 39 H 106/58 L 88 L 11/29/21 06:00 96 H 31 H 89/51 L 92 11/29/21 05:30 100 H 22 85/59 L 91 11/29/21 05:00 108 H 37 H 115/59 L 92 11/29/21 04:30 107 H 31 H 101/54 L 92 11/29/21 04:00 37.3 C 110 H 33 H 120/55 L 89 L 11/29/21 03:30 114 H 35 H 97/52 L 89 L 11/29/21 03:00 114 H 32 H 97/52 L 91 11/29/21 02:30 114 H 32 H 102/57 L 90 11/29/21 02:00 109 H 31 H 102/58 L 90 11/29/21 01:45 114 H 31 H 109/63 90 11/29/21 01:30 107 H 28 H 108/84 87 L 11/29/21 01:15 123 H 38 H 126/69 90 11/29/21 01:00 120 H 29 H 97/62 L 93 11/29/21 00:45 114 H 34 H 83/49 L 93 11/29/21 00:30 101 H 24 89/46 L 92 11/29/21 00:15 109 H 33 H 83/45 L 92 11/29/21 00:05 102 H 29 H 91 11/29/21 00:00 96 H 27 H 78/48 L 91 11/28/21 23:46 108 H 28 H 98/53 L 91 11/28/21 23:45 107 H 29 H 76/56 L 90 11/28/21 23:30 105 H 30 H 91/55 L 92 11/28/21 23:15 101 H 29 H 95/54 L 91 11/28/21 23:09 37.8 C H 105 H 33 H 113/65 91 11/28/21 23:00 104 H 26 H 113/65 92 11/28/21 22:45 111 H 28 H 88/58 L 90 11/28/21 22:30 114 H 36 H 94/53 L 90 Lab & Micro Results (Past 24 Hours) RBC 3.74 M/uL (4.7-6.1) L 11/29/21 WBC 18.72 K/uL (4.8-10.8) H 11/29/21 Hgb 10.9 g/dL (14.0-18.0) L 11/29/21 Hct 34.8 % (42-52) L 11/29/21 MCV 93.0 fL (80-100) 11/29/21 MCH 29.1 pg (25-34) 11/29/21 MCHC 31.3 g/dL (32-36) L 11/29/21 RDW Standard Deviation 51.0 fL (36.4-46.3) H 11/29/21 RDW Coefficient of Variation 15.0 % (11.5-14.5) H 11/29/21 Plt Count 314 K/uL (130-400) 11/29/21 MPV 9.8 fL (7.4-10.4) 11/29/21 Neutrophils (%) (Auto) 89.8 % 11/29/21 Lymphocytes (%) (Auto) 4.2 % 11/29/21 Monocytes # (Auto) 0.94 K/uL (0.11-0.59) H 11/29/21 Eosinophils # (Auto) 0.07 K/uL (0-0.5) 11/29/21 Immature Granulocyte % (Auto) 0.5 % 11/29/21 Neutrophils # (Auto) 16.82 K/uL (1.4-6.5) H 11/29/21 Lymphocytes # (Auto) 0.78 K/uL (1.2-3.4) L 11/29/21 Monocytes # (Auto) 0.94 K/uL (0.11-0.59) H 11/29/21 Eosinophils # (Auto) 0.07 K/uL (0-0.5) 11/29/21 Basophils # (Auto) 0.01 K/uL (0-0.2) 11/29/21 Immature Granulocyte # (Auto) 0.10 K/uL (0.00-0.02) H 11/29/21 Na 130 mmol/L (136-145) L 11/29/21 K 4.6 mmol/L (3.5-5.1) 11/29/21 Cl 95 mmol/L (98-107) L 11/29/21 CO2 31 mmol/L (21-32) 11/29/21 Anion Gap 4.0 (3-11) 11/29/21 BUN 55 mg/dl (7-18) H 11/29/21 Creatinine 1.16 mg/dl (0.6-1.4) 11/29/21 Estimated GFR ( Amer) 80.0 ml/min 11/29/21 Estimated GFR (Non-Af Amer) 69.0 ml/min 11/29/21 BUN/Creatinine Ratio 47.4 (10-20) H 11/29/21 Glu 150 mg/dl (70-99) H 11/29/21 Ca 9.4 mg/dl (8.5-10.1) 11/29/21 Phosphorus Level 2.3 mg/dl (2.5-4.9) L 11/29/21 Mg 2.4 mg/dl (1.8-2.4) 11/29/21 04:41 11/29/21 Calcium Level 9.4 mg/dl (8.5-10.1) 11/29/21 04:41 11/29/21 Francisco Test Pass 11/29/21 04:23 11/29/21 Microbiology 11/27/21 13:04 Urine Culture - Final Urine,Indwelling Cath No growth - less than 1,000 colonies/mL. 11/27/21 13:04 Gram Stain - Final Sputum,Vent Suction Sputum Culture - Final Moderate normal minnie. 11/27/21 13:45 Aerobic Blood Culture - Preliminary Blood No growth in Aerobic bottle after 24 hours. Anaerobic Blood Culture - Preliminary No growth in Anaerobic bottle after 24 hours. 11/27/21 13:45 Aerobic Blood Culture - Preliminary Blood No growth in Aerobic bottle after 24 hours. Anaerobic Blood Culture - Preliminary No growth in Anaerobic bottle after 24 hours. Diagnostic Findings (Past 24 Hours) Chest X-Ray 11/29/21 07:00 XR chest 1V portable HISTORY: 56 years-old Male Resp failure acute respiratory failure COMPARISON: Chest radiograph 11/28/2021 TECHNIQUE: Portable AP view of the chest FINDINGS: Cardiac silhouette is enlarged. Tracheostomy cannula overlies the midline. Interval removal of the left IJ central venous catheter. Partially imaged feeding tube distal tip is noted in the expected location of the distal stomach. Suspected small pleural effusions. No pneumothorax. Extensive left greater than right airspace opacities with interstitial coarsening appears stable from prior. Degenerative changes of the shoulders and spine. IMPRESSION: 1. Stable positioning of the tracheostomy cannula and feeding tube with interval removal of the left IJ central venous catheter. 2. Unchanged extensive left greater than right pulmonary opacities. 3. No pneumothorax. ACT 112: Negative or not required by law. The above report was generated using voice recognition software. It may contain grammatical, syntax or spelling errors. Electronically signed by: Harjeet Styles M.D. 11/29/2021 7:40 AM I & O Totals 24 Hours 11/28/21 11/29/21 11/30/21 06:59 06:59 06:59 Intake Total 1389.489 / 1389.489 126.303 / 126.303 31.067 / 31.067 Output Total 2250 / 2250 1600 / 1600 Balance -860.511 / -860.511 -1473.697 / -1473.697 .067 / 31.067 Cumulative 11/03/21 14:22 thru 11/29/21 09:43 Intake Total 30635.968 Output Total 49594 Balance -16865.032 RT Ventilator Mngmt (Last Documented) Ventilator Ordered Settings Ventilator Support Mode Assist Control 11/29/21 08:04 Respiratory Rate 38 11/29/21 08:30 Ventilator Tidal Volume 350 11/29/21 08:04 Setting Minute Ventilation 15.4 11/29/21 08:04 Positive End Expiratory 10 11/29/21 08:30 Pressure Fraction of Inspired Oxygen 100 11/29/21 08:04 Peak Inspiratory Flow 43 11/27/21 16:27 Machine Comment PEEP adjusted to +10 per 11/29/21 08:30 Shippert (at bedside) Ventilator - PT Measurements Respiratory Rate 38 Exhaled Tidal Volume 388 Minute Ventilation 15.4 Peak Inspiratory Airway 24 Pressure Plateau Pressure 19 Respiratory Cycle Inspiratory: 1:1.2 Expiratory Ratio Inspiratory Phase Time 1.0 End-Tidal CO2 31 Static Lung Compliance 24.25 Dynamic Lung Compliance 18.48 Normal Static Lung Compliance 45.00 Patient Measurements Comment Patient given morphine at this time Coding Level of Care Code Critical Care 1st 30-74 mins Diagnoses Acute hypoxemic respiratory failure due to COVID-19 U07.1; J96.01 2019 novel coronavirus-infected pneumonia (NCIP) U07.1; J12.82 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
[2021-11-29] MEDS ORDERED: POTASSIUM PHOS 3 MMOL/1 ML INFUSION IV STA (10:35)
[2021-11-29] MEDS ORDERED: POTASSIUM PHOSPHATE 15 MMOL in SODIUM CHLORIDE 0.9% 250 ML IV ONE (11:00)
[2021-11-29] MEDS ORDERED: OPTIRAY 320 100ml IV ONE (11:27)
[2021-11-29] MEDS: CEFEPIME 1,000 MG in SYRINGE 0 ML IV SCH ×2 (11:30→22:51)
[2021-11-29] MEDS: ENOXAPARIN 80 MG/0.8 ML SYR SQ SCH ×2 (11:31→23:50)
--- NOTE | 2021-11-29 12:08 | CT Scan Report ---
CHEST CT WITH CONTRAST; CT ABDOMEN AND PELVIS WITH IV CONTRAST ONLY CT DOSE: 1388.30 mGy.cm HISTORY: Acute fever with hypoxia, chest and abdominal pain fever hypoxia r/o abscess TECHNIQUE: Multiaxial CT images of the chest, abdomen and pelvis were performed following the IV admi nistration of 92 cc of Optiray. A dose lowering technique was utilized adhering to the principles o f ALARA. COMPARISON: CTA chest 11/19/2021 FINDINGS: CT CHEST: The heart is mildly enlarged. No pericardial effusion. There is no thoracic aortic aneurysm. The visu alized opacified pulmonary arterial tree appears unremarkable. Trace bilateral pleural effusions. No pneumothorax. Extensive bilateral mixed groundglass and consolidative opacities with air bronchograms . There is a mild intralobular septal thickening also noted. The central airways are patent. Groundgl ass opacities have progressed from prior. There is resolution of the previously described pneumomedia stinum. Unchanged dilation of the azygos and hemiazygos veins. A tracheostomy cannula appears to be i n satisfactory positioning. Unremarkable soft tissues with mild gynecomastia. There is no acute fract ure or suspicious bone lesion identified. Degenerative changes of the shoulders and spine. Mild mid t horacic levoscoliosis. CT ABDOMEN/PELVIS: There is no pneumatosis or pneumoperitoneum. The study is limited secondary to upper extremity positi oning and respiratory motion artifact. Unremarkable spleen, pancreas and adrenal glands. Mild distent ion of the gallbladder. Hepatic steatosis. Patent portal vein. Nonspecific mild bilateral perinephric stranding. 1.6 cm exophytic probable cyst of the posterior int erpolar left kidney. Parenchymal thinning with scarring is noted within the superior interpolar left kidney. There is no hydronephrosis. Mild urinary bladder wall thickening with partial distention. Unr emarkable aorta. Collateral veins of the bilateral lateral tissues. Collateral vessels are noted with in the retroperitoneum with suggested abdominal absence of the IVC. No adenopathy. Enteric tube terminates in the distal stomach. Trace free fluid within the dependent pelvis. There is no bowel obstruction. Air-fluid levels are noted within the cecum and ascending colon. There is circ umferential wall thickening involving a long segment of distal ileum which also demonstrates scattere d air-fluid levels with mild adjacent inflammatory stranding. The appendix is suboptimally visualized without the use of enteric contrast. No definite CT evidence of acute appendicitis. Varices of the a nterior abdominal wall. Degenerative changes of the spine, pelvis and hips. Mild superior endplate co mpression at L5 without retropulsion or paravertebral edema. IMPRESSION: 1. Extensive bilateral mixed groundglass and airspace opacities compatible with viral pneumonia have progressively worsened from 11/19/2021. 2. Small pleural effusions. 3. Wall thickening with adjacent inflammatory stranding is noted within the distal ileum compatible w ith a nonspecific enteritis. Trace associated free pelvic fluid is likely reactive. 4. No bowel obstruction. 5. Mild urinary bladder wall thickening should be correlated with urinalysis to exclude cystitis. 6. Age-indeterminate L5 superior endplate compression deformity, favored to be chronic. 7. Additional findings as above. ACT 112: Negative or not required by law. Electronically signed by: Harjeet Styles M.D. 11/29/2021 12:07 PM
[2021-11-29] MEDS: PEPTAMEN INTENSE VHP 1.0 CAL 1,000 ML BAG OG SCH (13:06)
--- NOTE | 2021-11-29 13:46 | Hospitalist Progress Note ---
Date of Service November 29, 2021 Assessment & Plan (1) COVID-19: Plan: Acute hypoxic respiratory failure due to COVID-19 pneumonia Tested positive to COVID 19 on 10/27/21 Initially completed course of remdesivir and dexamethasone Did not meet criteria for baricitinib as patient was already admitted for more than 72 hours Acute worsening respiratory status CT PE did not show any PE but showed progression of bilateral opacities, small amount of pneumomediastinum and small bilateral pleural effusion. Concern for firbrosis per crit team. Had previously completed cefepime and doxycycline. Intubated on 11/20/21 --> 11/26/2021 tracheostomy status, on mechanical ventilation being managed per critical care team. Per prior attending: On 11/20/21, I called [facility] and spoke with Dr. Samson. We discussed patient. Unfortunately, patient is not an ECMO candidate MRSA swab is negative Patient on late DEXA ARDS protocol. Tax Accounting Manager on board managing vent and sedation Febrile illness: 11/27 blood culture no growth so far, urinary catheter removed, CT chest abdomen and pelvis sent today to rule out source of infection. Patient started on cefepime 11/29. Acute Hyponatremia FRANDY likely related to hypotension - resolved Hypotension - resolved Hyponatremia improving/stable Monitor BMP Hx DVT, Factor V Leiden Has mild edema of the left lower extremity, chronic per patient Doppler ultrasound done during this admission: nonocclusive thrombus present within the common femoral vein and the proximal to mid superficial femoral vein- chronic per Radiologist Coumadin on hold Heparin changed to therapeutic lovenox Dyslipidemia Plan to resume Atorvastatin on dc Disposition ICU Poor prognosis Per prior attending: called and updated. reported as she already discussed with the lab aide and will likely proceed with tracheostomy at some point. (2) Nausea vomiting and diarrhea: Admission and Anticipated Discharge Date Admission Date: November 03, 2021 Subjective Patient lying in bed, on Precedex, being ventilated via tracheostomy tube, able to follow commands with blinking his eyes and occasional movement of his head. Denied pain. ROS not assessable due to cognition status. Per RN, patient desaturated in the morning requiring change in the ventilation settings, currently PEEP of 10 with FiO2 of 100% and patient's blood pressure also dropped requiring reinstitution of Levophed. Zepeda CT has been sent. Physical Exam Physical Exam: GENERAL: Sedated on Precedex, tracheostomy status, on mechanical ventilation HEENT: No pallor, no icterus. Pupils equal, round and reactive to light. Oral mucosa moist. NECK: No JVD, no neck masses. HEART: S1 and S2 heard. Regular rate and rhythm. No murmur, no gallop. RESPIRATORY SYSTEM: Normal AP diameter. No accessory muscle use. No wheezing, increased breath sounds bilaterally with crackles. ABDOMEN: Soft, bowel sounds present, no distention. CENTRAL NERVOUS SYSTEM: Patient able to blink his eyes on commands, n/a EXTREMITIES: 2+ LLE edema,RLE trace edema, no erythema seen. Vaughn catheter with yellow urine collection. Results & Data Results & Data ([facility]) Vital Signs (Past 12 Hours) Vital Signs Temp Pulse Resp BP BP Pulse Ox 11/29/21 13:30 88 30 H 110/69 95 11/29/21 13:11 85/47 L 11/29/21 13:00 96 H 28 H 85/47 L 95 11/29/21 12:00 37.0 C 100 H 22 86/54 L 94 11/29/21 11:45 120/65 11/29/21 10:55 93 H 33 H 96 11/29/21 10:07 113 H 11/29/21 10:00 116 H 29 H 94/57 L 93 11/29/21 09:56 101/63 11/29/21 09:43 86/47 L 11/29/21 09:30 87/54 L 11/29/21 09:20 72/46 L 11/29/21 09:00 86 36 H 72/46 L 87 L 11/29/21 08:30 38 H 97/53 L 82 L 11/29/21 08:04 115 H 38 H 85 L 11/29/21 08:00 37.0 C 121 H 30 H 138/65 86 L 11/29/21 07:00 111 H 39 H 106/58 L 88 L 11/29/21 06:00 96 H 31 H 89/51 L 92 11/29/21 05:30 100 H 22 85/59 L 91 11/29/21 05:00 108 H 37 H 115/59 L 92 11/29/21 04:30 107 H 31 H 101/54 L 92 11/29/21 04:00 37.3 C 110 H 33 H 120/55 L 89 L 11/29/21 03:30 114 H 35 H 97/52 L 89 L 11/29/21 03:00 114 H 32 H 97/52 L 91 11/29/21 02:30 114 H 32 H 102/57 L 90 11/29/21 02:00 109 H 31 H 102/58 L 90
[2021-11-30] MEDS: TUBE FEEDING WATER FLUSH OG SCH ×5 (02:20→20:31)
[2021-11-30] MEDS: DEXMEDETOMIDINE HCL 200 MCG in SODIUM CHLORIDE 0.9% 48 ML IV SCH ×3 (02:24→05:32)
[2021-11-30 04:07] LABS: iSTAT Art Bld Gas pCO2 Correct 64 mmHg (35-46); iSTAT Art Bld Gas pH Corrected 7.319 (7.35-7.45); iSTAT Arterial Blood Gas HCO3 33 meg/L (19-24); iSTAT Arterial Blood Gas pCO2 61 mmHg (35-46); iSTAT Arterial Blood Gas pH 7.33 (7.35-7.45); iSTAT Arterial Blood Gas pO2 51 mmHg (80-95); iSTAT Arterial Blood Gas pO2 C 55; iSTAT Carbon Dioxide 34 mmol/L (24-31); iSTAT Hematocrit 33 % (42-52); iSTAT Hemoglobin 11.2 g/dl (14.0-18.0); iSTAT Potassium 4.5 mmol/L (3.3-5.0); iSTAT Site R Radial; iSTAT Sodium 133 mmol/L (135-144)
[2021-11-30] MEDS: INSULIN ASPART PER UNIT SC SCH ×5 (04:19→20:14)
[2021-11-30] MEDS: oxyCODONE HCL IR 5 MG TAB (IMMEDIATE RELEASE) PO SCH ×4 (04:20→22:39)
[2021-11-30 05:00] LABS: Eosinophils % (auto) 0.6 %; Hematocrit (blood only) 32.5 % (42-52); Hemoglobin 10.4 g/dL (14.0-18.0); Immature Granulocytes % (auto) 0.6 %; Lymphocytes # (auto) 1.56 K/uL (1.2-3.4); Lymphocytes % (auto) 8.7 %; Mean Corpuscular Hemoglobin 29.4 pg (25-34); Mean Corpuscular Volume 91.8 fL (80-100); Mean Platelet Volume 9.4 fL (7.4-10.4); Monocytes # (auto) 0.28 K/uL (0.11-0.59); Monocytes % (auto) 1.6 %; Neutrophils # (auto) 15.96 K/uL (1.4-6.5); Neutrophils % (auto) 88.5 %; Platelet Count 320 K/uL (130-400); RDW Coefficient of Variation 14.7 % (11.5-14.5); RDW Standard Deviation 50.6 fL (36.4-46.3); Red Blood Count 3.54 M/uL (4.7-6.1)
[2021-11-30 05:28] LABS: Albumin Level 2.3 gm/dl (3.4-5.0); Calcium 9.5 mg/dl (8.5-10.1); Creatinine Clr Calc Pharmacy 60.4 ml/min; Est GFR (African American) 70.4 ml/min; Est GFR (Non-African American) 60.7 ml/min; Magnesium 2.3 mg/dl (1.8-2.4); Potassium 4.4 mmol/L (3.5-5.1)
[2021-11-30] MEDS: DEXMEDETOMIDINE HCL 400 MCG in 0.9 % SODIUM CHLORIDE 96 ML IV SCH ×2 (05:30→11:32)
[2021-11-30 05:32] LABS: Bilirubin Direct 0.4 mg/dl (0-0.2); Bilirubin,Total 0.7 mg/dl (0.2-1); Phosphorus 2.2 mg/dl (2.5-4.9); Total Protein 6.7 gm/dl (6.4-8.2)
--- NOTE | 2021-11-30 08:12 | XRay Report ---
SINGLE VIEW CHEST CLINICAL HISTORY: Respiratory failure. FINDINGS: An AP, portable, upright chest radiograph is compared to chest x-ray and chest CT dated 11/29. A tracheostomy and an enteric tube are unchanged in position. The cardiomediastinal silhouette is unremarkable. Extensive/diffuse multifocal airspace consolidation has not appreciably changed fro m yesterday. Trace pleural effusions are suspected. No pneumothorax is seen. The bony thorax is gross ly intact. IMPRESSION: 1. Stable lines and tubes. 2. Extensive/multifocal airspace consolidation has not appreciably changed from yesterday. ACT 112: Negative or not required by law. Electronically signed by: Reece Cervantes M.D. 11/30/2021 8:11 AM
[2021-11-30] MEDS: DEXAMETHASONE IV SCH (08:43)
[2021-11-30] MEDS: METOPROLOL TARTRATE 50 MG TAB PO SCH ×2 (08:43→21:22)
[2021-11-30] MEDS: MULTI VIT W/MINERALS LIQUID 15 ML UDP NG SCH (08:43)
[2021-11-30] MEDS: DOCUSATE SODIUM SYRUP 100 MG/10 ML UDC PO SCH ×2 (08:44→21:22)
[2021-11-30] MEDS: PANTOprazole 40 MG in SYRINGE 0 ML IV SCH (08:45)
[2021-11-30] MEDS: PEPTAMEN INTENSE VHP 1.0 CAL 1,000 ML BAG OG SCH (08:47)
[2021-11-30] MEDS: QUEtiapine FUMARATE 25 MG TABLET PO SCH ×2 (08:48→21:23)
--- NOTE | 2021-11-30 09:05 | Critical Care Progress Note ---
Date of Service November 30, 2021 Assessment & Plan (1) Acute hypoxemic respiratory failure due to COVID-19: (2) 2019 novel coronavirus-infected pneumonia (NCIP): (3) Factor V Leiden carrier: (4) Pneumomediastinum: Plan: Neuro: Sedation: Versed infusion: discontinued -Attempt to wean Precedex -Seroquel increased to 50 mg BID Analgesia: Oxycodone taper Cardiovascular: Hypotension: -Titrate Levophed as needed - adding midodrine 5 mg 3 times daily Respiratory: CT chest 11/19/2021 personally reviewed: Diffuse patchy opacities appreciated bilaterally upper and lower lobes I do think there is a component of fibrosis to certain degree Bilateral pleural effusion small No significant mediastinal lymphadenopathy -- VDRF Likely secondary to Acute hypoxic respiratory failure Secondary to multilobar COVID-19 pneumonia Patient has very poor compliance. Continue with ventilatory support Intubation 11/20 Tracheostomy 11/26 postop day 4 COVID-19 + 11/03/2021 No central PE on CTA 11/19/2021 Patient was started on late DEXA ARDS protocol -Transition from 10 mg daily to 7.5 mg x 3 days then 5 mg x 3 days then 2.5 mg x 3 days then stop Patient is not a candidate for ECMO Renal: -- FRANDY: Resolved Likely from initial hypotensive episode. Monitor BUN/creatinine Avoid nephrotoxic medications Strict ins and outs --S/p acute hyponatremia: Resolved --Constipation resolved 11/29 --Pulmonary hypertension Type III likely from pulmonary fibrosis likely developing from COVID-19 pneumonia --Pneumomediastinum Small --Febrile illness -Blood cultures 11/27 no growth to date -UA largely unremarkable -Vaughn out 11/28 transition to [place] cath -Given increase in ventilator requirements will transition to empiric cefepime for 7 days -Cefepime day 2/7 -CT scan chest abdomen pelvis: Reviewed -Lipase and LFTs in a.m. --History of factor Leiden deficiency Lovenox 80 mg every 12 --History of dyslipidemia --Prophylaxis VTE: Lovenox GI: Protonix once daily Lines: Left IJ discontinue 11/28, right radial 11/28 Diet: Tube feedings at goal Patient's [phone] After discussion with family: Continue current level medical/life support, however in event of cardiac arrest will not undergo heroic measures DNR in event of cardiac arrest Admission and Anticipated Discharge Date Admission Date: November 03, 2021 Supervising Physician Co-Signing Physician Notes I have personally spent 40 minutes of critical care time in the direct management of this patient. This is a life/limb threatening event. This includes time spent evaluating patient, direct bedside care, chart review, placing orders, interpretation of diagnostic studies, discussion with consultants, patient, and/or family members regarding treatment decisions, as well as other required patient management activities. This time is exclusive of all separately billable procedures, and teaching time and separate from and in addition to any other critical care service time. Review of Systems Review of Systems: unable to obtain due to trachesotomy tube Physical Exam Physical Exam: General: Alert following commands Skin: Warm, dry, Head: Atraumatic Ears, nose, mouth and throat: airway airway patent, tracheostomy tube in place Cardiovascular: Normal peripheral perfusion, tachycardic Respiratory: Ventilator settings reviewed Gastrointestinal: Non distended Musculoskeletal: No deformity Results & Data Results & Data ([facility]) Vital Signs (Past 12 Hours) Vital Signs Temp Pulse Pulse Resp BP BP Pulse Ox 11/30/21 07:57 109 H 43 H 92 11/30/21 07:47 37.2 C 102 H 33 H 112/58 L 93 11/30/21 04:43 99 H 38 H 108/55 L 91 11/30/21 04:00 37.3 C 128 H 38 H 109/58 L 87 L 11/30/21 03:00 120 H 38 H 130/68 85 L 11/30/21 02:30 104 H 35 H 90 11/30/21 02:00 101 H 30 H 124/63 90 11/30/21 01:00 81 33 H 104/62 90 11/30/21 00:37 87 35 H 91 11/30/21 00:00 37.2 C 76 27 H 85/50 L 93 11/29/21 23:50 93 H 34 H 88/49 L 92 11/29/21 23:00 91 H 29 H 96/53 L 93 11/29/21 22:02 83 33 H 118/61 88 L Critical Care Results & Data Vital Signs (Past 12 Hours) Vital Signs Temp Pulse Pulse Resp BP BP Pulse Ox 11/30/21 07:57 109 H 43 H 92 11/30/21 07:47 37.2 C 102 H 33 H 112/58 L 93 11/30/21 04:43 99 H 38 H 108/55 L 91 11/30/21 04:00 37.3 C 128 H 38 H 109/58 L 87 L 11/30/21 03:00 120 H 38 H 130/68 85 L 11/30/21 02:30 104 H 35 H 90 11/30/21 02:00 101 H 30 H 124/63 90 11/30/21 01:00 81 33 H 104/62 90 11/30/21 00:37 87 35 H 91 11/30/21 00:00 37.2 C 76 27 H 85/50 L 93 11/29/21 23:50 93 H 34 H 88/49 L 92 11/29/21 23:00 91 H 29 H 96/53 L 93 11/29/21 22:02 83 33 H 118/61 88 L Lab & Micro Results (Past 24 Hours) RBC 3.54 M/uL (4.7-6.1) L 11/30/21 WBC 18.00 K/uL (4.8-10.8) H 11/30/21 Hgb 10.4 g/dL (14.0-18.0) L 11/30/21 Hct 32.5 % (42-52) L 11/30/21 MCV 91.8 fL (80-100) 11/30/21 MCH 29.4 pg (25-34) 11/30/21 MCHC 32.0 g/dL (32-36) 11/30/21 RDW Standard Deviation 50.6 fL (36.4-46.3) H 11/30/21 RDW Coefficient of Variation 14.7 % (11.5-14.5) H 11/30/21 Plt Count 320 K/uL (130-400) 11/30/21 MPV 9.4 fL (7.4-10.4) 11/30/21 Neutrophils (%) (Auto) 88.5 % 11/30/21 Lymphocytes (%) (Auto) 8.7 % 11/30/21 Monocytes # (Auto) 0.28 K/uL (0.11-0.59) 11/30/21 Eosinophils # (Auto) 0.10 K/uL (0-0.5) 11/30/21 Immature Granulocyte % (Auto) 0.6 % 11/30/21 Neutrophils # (Auto) 15.96 K/uL (1.4-6.5) H 11/30/21 Lymphocytes # (Auto) 1.56 K/uL (1.2-3.4) 11/30/21 Monocytes # (Auto) 0.28 K/uL (0.11-0.59) 11/30/21 Eosinophils # (Auto) 0.10 K/uL (0-0.5) 11/30/21 Basophils # (Auto) 0.00 K/uL (0-0.2) 11/30/21 Immature Granulocyte # (Auto) 0.10 K/uL (0.00-0.02) H 11/30/21 Na 133 mmol/L (136-145) L 11/30/21 K 4.4 mmol/L (3.5-5.1) 11/30/21 Cl 98 mmol/L (98-107) 11/30/21 CO2 31 mmol/L (21-32) 11/30/21 Anion Gap 4.0 (3-11) 11/30/21 BUN 66 mg/dl (7-18) H 11/30/21 Creatinine 1.29 mg/dl (0.6-1.4) 11/30/21 Estimated GFR ( Amer) 70.4 ml/min 11/30/21 Estimated GFR (Non-Af Amer) 60.7 ml/min 11/30/21 BUN/Creatinine Ratio 51.0 (10-20) H 11/30/21 Glu 149 mg/dl (70-99) H 11/30/21 Ca 9.5 mg/dl (8.5-10.1) 11/30/21 Phosphorus Level 2.2 mg/dl (2.5-4.9) L 11/30/21 Total Bilirubin 0.7 mg/dl (0.2-1) 11/30/21 Direct Bilirubin 0.4 mg/dl (0-0.2) H 11/30/21 AST 19 U/L (15-37) 11/30/21 ALT 31 (12-78) 11/30/21 Alkaline Phosphatase 99 U/L (45-117) 11/30/21 TP 6.7 gm/dl (6.4-8.2) 11/30/21 Albumin 2.3 gm/dl (3.4-5.0) L 11/30/21 Mg 2.3 mg/dl (1.8-2.4) 11/30/21 04:52 11/30/21 Calcium Level 9.5 mg/dl (8.5-10.1) 11/30/21 04:52 11/30/21 Francisco Test NA 11/30/21 03:52 11/30/21 Microbiology 11/27/21 13:45 Aerobic Blood Culture - Preliminary Blood No growth in Aerobic bottle after 48 hours. Anaerobic Blood Culture - Preliminary No growth in Anaerobic bottle after 48 hours. 11/27/21 13:45 Aerobic Blood Culture - Preliminary Blood No growth in Aerobic bottle after 48 hours. Anaerobic Blood Culture - Preliminary No growth in Anaerobic bottle after 48 hours. 11/27/21 13:04 Urine Culture - Final Urine,Indwelling Cath No growth - less than 1,000 colonies/mL. 11/27/21 13:04 Gram Stain - Final Sputum,Vent Suction Sputum Culture - Final Moderate normal minnie. Diagnostic Findings (Past 24 Hours) Abdomen/Pelvis CT 11/29/21 10:[address] WITH CONTRAST; CT ABDOMEN AND PELVIS WITH IV CONTRAST ONLY CT DOSE: 1388.30 mGy.cm HISTORY: Acute fever with hypoxia, chest and abdominal pain fever hypoxia r/o abscess TECHNIQUE: Multiaxial CT images of the chest, abdomen and pelvis were performed following the IV administration of 92 cc of Optiray. A dose lowering technique was utilized adhering to the principles of ALARA. COMPARISON: CTA chest 11/19/2021 FINDINGS: CT CHEST: The heart is mildly enlarged. No pericardial effusion. There is no thoracic aortic aneurysm. The visualized opacified pulmonary arterial tree appears unremarkable. Trace bilateral pleural effusions. No pneumothorax. Extensive bilateral mixed groundglass and consolidative opacities with air bronchograms. There is a mild intralobular septal thickening also noted. The central airways are patent. Groundglass opacities have progressed from prior. There is resolution of the previously described pneumomediastinum. Unchanged dilation of the azygos and hemiazygos veins. A tracheostomy cannula appears to be in satisfactory positioning. Unremarkable soft tissues with mild gynecomastia. There is no acute fracture or suspicious bone lesion identified. Degenerative changes of the shoulders and spine. Mild mid thoracic levoscoliosis. CT ABDOMEN/PELVIS: There is no pneumatosis or pneumoperitoneum. The study is limited secondary to upper extremity positioning and respiratory motion artifact. Unremarkable spleen, pancreas and adrenal glands. Mild distention of the gallbladder. Hepatic steatosis. Patent portal vein. Nonspecific mild bilateral perinephric stranding. 1.6 cm exophytic probable cyst of the posterior interpolar left kidney. Parenchymal thinning with scarring is noted within the superior interpolar left kidney. There is no hydronephrosis. Mild urinary bladder wall thickening with partial distention. Unremarkable aorta. Collateral veins of the bilateral lateral tissues. Collateral vessels are noted within the retroperitoneum with suggested abdominal absence of the IVC. No adenopathy. Enteric tube terminates in the distal stomach. Trace free fluid within the dependent pelvis. There is no bowel obstruction. Air-fluid levels are noted within the cecum and ascending colon. There is circumferential wall thickening involving a long segment of distal ileum which also demonstrates scattered air- fluid levels with mild adjacent inflammatory stranding. The appendix is suboptimally visualized without the use of enteric contrast. No definite CT evidence of acute appendicitis. Varices of the anterior abdominal wall. Degenerative changes of the spine, pelvis and hips. Mild superior endplate compression at L5 without retropulsion or paravertebral edema. IMPRESSION: 1. Extensive bilateral mixed groundglass and airspace opacities compatible with viral pneumonia have progressively worsened from 11/19/2021. 2. Small pleural effusions. 3. Wall thickening with adjacent inflammatory stranding is noted within the distal ileum compatible with a nonspecific enteritis. Trace associated free pelvic fluid is likely reactive. 4. No bowel obstruction. 5. Mild urinary bladder wall thickening should be correlated with urinalysis to exclude cystitis. 6. Age-indeterminate L5 superior endplate compression deformity, favored to be chronic. 7. Additional findings as above. ACT 112: Negative or not required by law. Electronically signed by: Harjeet Styles M.D. 11/29/2021 12:[address] 11/29/21 10:[address] WITH CONTRAST; CT ABDOMEN AND PELVIS WITH IV CONTRAST ONLY CT DOSE: 1388.30 mGy.cm HISTORY: Acute fever with hypoxia, chest and abdominal pain fever hypoxia r/o abscess TECHNIQUE: Multiaxial CT images of the chest, abdomen and pelvis were performed following the IV administration of 92 cc of Optiray. A dose lowering technique was utilized adhering to the principles of ALARA. COMPARISON: CTA chest 11/19/2021 FINDINGS: CT CHEST: The heart is mildly enlarged. No pericardial effusion. There is no thoracic aortic aneurysm. The visualized opacified pulmonary arterial tree appears unremarkable. Trace bilateral pleural effusions. No pneumothorax. Extensive bilateral mixed groundglass and consolidative opacities with air bronchograms. There is a mild intralobular septal thickening also noted. The central airways are patent. Groundglass opacities have progressed from prior. There is resolution of the previously described pneumomediastinum. Unchanged dilation of the azygos and hemiazygos veins. A tracheostomy cannula appears to be in satisfactory positioning. Unremarkable soft tissues with mild gynecomastia. There is no acute fracture or suspicious bone lesion identified. Degenerative changes of the shoulders and spine. Mild mid thoracic levoscoliosis. CT ABDOMEN/PELVIS: There is no pneumatosis or pneumoperitoneum. The study is limited secondary to upper extremity positioning and respiratory motion artifact. Unremarkable spleen, pancreas and adrenal glands. Mild distention of the gallbladder. Hepatic steatosis. Patent portal vein. Nonspecific mild bilateral perinephric stranding. 1.6 cm exophytic probable cyst of the posterior interpolar left kidney. Parenchymal thinning with scarring is noted within the superior interpolar left kidney. There is no hydronephrosis. Mild urinary bladder wall thickening with partial distention. Unremarkable aorta. Collateral veins of the bilateral lateral tissues. Collateral vessels are noted within the retroperitoneum with suggested abdominal absence of the IVC. No adenopathy. Enteric tube terminates in the distal stomach. Trace free fluid within the dependent pelvis. There is no bowel obstruction. Air-fluid levels are noted within the cecum and ascending colon. There is circumferential wall thickening involving a long segment of distal ileum which also demonstrates scattered air- fluid levels with mild adjacent inflammatory stranding. The appendix is suboptimally visualized without the use of enteric contrast. No definite CT evidence of acute appendicitis. Varices of the anterior abdominal wall. Degenerative changes of the spine, pelvis and hips. Mild superior endplate compression at L5 without retropulsion or paravertebral edema. IMPRESSION: 1. Extensive bilateral mixed groundglass and airspace opacities compatible with viral pneumonia have progressively worsened from 11/19/2021. 2. Small pleural effusions. 3. Wall thickening with adjacent inflammatory stranding is noted within the distal ileum compatible with a nonspecific enteritis. Trace associated free pelvic fluid is likely reactive. 4. No bowel obstruction. 5. Mild urinary bladder wall thickening should be correlated with urinalysis to exclude cystitis. 6. Age-indeterminate L5 superior endplate compression deformity, favored to be chronic. 7. Additional findings as above. ACT 112: Negative or not required by law. Electronically signed by: Harjeet Styles M.D. 11/29/2021 12:07 PM Chest X-Ray 11/30/21 07:00 SINGLE VIEW CHEST CLINICAL HISTORY: Respiratory failure. FINDINGS: An AP, portable, upright chest radiograph is compared to chest x-ray and chest CT dated 11/29/2021. A tracheostomy and an enteric tube are unchanged in position. The cardiomediastinal silhouette is unremarkable. Extensive/diffuse multifocal airspace consolidation has not appreciably changed from yesterday. Trace pleural effusions are suspected. No pneumothorax is seen. The bony thorax is grossly intact. IMPRESSION: 1. Stable lines and tubes. 2. Extensive/multifocal airspace consolidation has not appreciably changed from yesterday. ACT 112: Negative or not required by law. Electronically signed by: Reece Cervantes M.D. 11/30/2021 8:11 AM I & O Totals 24 Hours 11/29/21 11/30/21 12/01/21 06:59 06:59 06:59 Intake Total 126.303 / 376.364 7450.511 / 1955.511 Output Total 1601 / 1601 Balance -1474.697 / -6582.307 6176.511 / 1955.511 Cumulative 11/03/21 14:22 thru 11/30/21 06:51 Intake Total 55864.412 Output Total 11035 Balance -9230.588 RT Ventilator Mngmt (Last Documented) Ventilator Ordered Settings Ventilator Support Mode PRVC 11/30/21 07:57 Respiratory Rate 43 11/30/21 07:57 Ventilator Tidal Volume 380 11/30/21 07:57 Setting Minute Ventilation 17 11/30/21 07:57 Positive End Expiratory 8 11/30/21 07:57 Pressure Fraction of Inspired Oxygen 90 11/30/21 07:58 Peak Inspiratory Flow 43 11/27/21 16:27 Machine Comment RT found vent on these settings 11/29/21 19:56 Ventilator - PT Measurements Respiratory Rate 43 Exhaled Tidal Volume 398 Minute Ventilation 17 Peak Inspiratory Airway 19 Pressure Plateau Pressure 23 Respiratory Cycle Inspiratory: 1:6.1 Expiratory Ratio Inspiratory Phase Time 0.90 End-Tidal CO2 46 Static Lung Compliance 26.53 Dynamic Lung Compliance 36.18 Normal Static Lung Compliance 48.00 Patient Measurements Comment trach site cleaned and dressing applied Coding Level of Care Code Critical Care 1st 30-74 mins Diagnoses Acute hypoxemic respiratory failure due to COVID-19 U07.1; J96.01 2019 novel coronavirus-infected pneumonia (NCIP) U07.1; J12.82 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
[2021-11-30] MEDS: ASCORBIC ACID 500 MG TAB PO SCH (10:21)
[2021-11-30] MEDS: ZINC SULFATE 220 MG CAPSULE PO SCH (10:21)
[2021-11-30] MEDS: METHYLNALTREXONE BROMIDE 12 MG/0.6 ML VIAL SQ SCH (10:25)
[2021-11-30] MEDS: ENOXAPARIN 80 MG/0.8 ML SYR SQ SCH (11:33)
[2021-11-30] MEDS: CEFEPIME 1,000 MG in SYRINGE 0 ML IV SCH (11:33)
[2021-11-30] MEDS: MIDODRINE HCL 2.5 MG TAB PO SCH ×2 (11:43→16:41)
--- NOTE | 2021-11-30 11:57 | XRay Report ---
KUB CLINICAL HISTORY: Enteric tube placement. FINDINGS: An AP portable view of the lower chest and upper abdomen is compared to study dated 021. An enteric tube is in place. The tip projects below the diaphragm over the distal stomach. There is no evidence of bowel obstruction. Multifocal airspace consolidation is seen at the lung bases. Th e bony structures appear intact. IMPRESSION: An enteric tube is in place as above. Electronically signed by: Reece Cervantes M.D. 11/30/2021 11:56 AM
--- NOTE | 2021-11-30 12:03 | Hospitalist Progress Note ---
Date of Service November 30, 2021 Assessment & Plan (1) COVID-19: Plan: Acute hypoxic respiratory failure due to COVID-19 pneumonia Tested positive to COVID 19 on 10/27/21 Initially completed course of remdesivir and dexamethasone Did not meet criteria for baricitinib as patient was already admitted for more than 72 hours Acute worsening respiratory status CT PE did not show any PE but showed progression of bilateral opacities, small amount of pneumomediastinum and small bilateral pleural effusion. Concern for firbrosis per crit team. Had previously completed cefepime and doxycycline. Intubated on 11/20/21 --> 11/26/2021 tracheostomy status, on mechanical ventilation being managed per critical care team. Per prior attending: On 11/20/21, I called [facility] and spoke with Dr. Samson. We discussed patient. Unfortunately, patient is not an ECMO candidate MRSA swab is negative Patient on late DEXA ARDS protocol. Inspector Scales on board managing vent and sedation Febrile illness: 11/27 blood culture no growth so far, urinary catheter removed, CT chest abdomen and pelvis sent 11/29/21 s/o worsening GGO w/ small pleural eff. and nonspecific enteritis of distal ileum. Patient started on cefepime 11/29 for ?Pul Infection Acute Hyponatremia FRANDY likely related to hypotension - resolved Hypotension - on levophed again. 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 reported as she already discussed with the imaging engineer and will likely proceed with tracheostomy at some point. (2) Nausea vomiting and diarrhea: Admission and Anticipated Discharge Date Admission Date: November 03, 2021 Subjective Patient lying in bed, on Precedex, being ventilated via tracheostomy tube, FiO2 90%. Able to follow commands with eyes/upper extremities and lower extremities. Denied pain. ROS not assessable due to trach status/nonvocal. Per RN, patient is doing better today, failed CPAP trial [lasted 10 minutes], patient still requiring Levophed, increased Seroquel. Physical Exam Physical Exam: GENERAL: Sedated on Precedex, tracheostomy status, on mechanical ventilation HEENT: No pallor, no icterus. Pupils equal, round and reactive to light. Oral mucosa moist. NECK: No JVD, no neck masses. HEART: S1 and S2 heard. Regular rate and rhythm. No murmur, no gallop. RESPIRATORY SYSTEM: Normal AP diameter. No accessory muscle use. No wheezing, increased breath sounds bilaterally with crackles. ABDOMEN: Soft, bowel sounds present, no distention. CENTRAL NERVOUS SYSTEM: Patient able to blink his eyes on commands, n/a EXTREMITIES: 2+ LLE edema,RLE trace edema, no erythema seen. Results & Data Results & Data ([facility]) Vital Signs (Past 12 Hours) Vital Signs Temp Pulse Pulse Resp BP BP Pulse Ox 11/30/21 10:40 107 H 41 H 91 11/30/21 07:57 109 H 43 H 92 11/30/21 07:47 37.2 C 102 H 33 H 112/58 L 93 11/30/21 04:43 99 H 38 H 108/55 L 91 11/30/21 04:00 37.3 C 128 H 38 H 109/58 L 87 L 11/30/21 03:00 120 H 38 H 130/68 85 L 11/30/21 02:30 104 H 35 H 90 11/30/21 02:00 101 H 30 H 124/63 90 11/30/21 01:00 81 33 H 104/62 90 11/30/21 00:37 87 35 H 91
[2021-11-30] MEDS: NOREPINEPHRINE/D5W 8 MG/508 ML BAG IV SCH ×2 (13:36→14:58)
--- NOTE | 2021-11-30 14:59 | CT Scan Report ---
CT SCAN OF THE BRAIN WITHOUT IV CONTRAST CLINICAL HISTORY: Change in mental status. Unresponsive. COMPARISON STUDY: No priors. TECHNIQUE: Unenhanced axial CT scan of the brain is performed from the vertex to the skull base. A d ose lowering technique was utilized adhering to the principles of ALARA. CT DOSE: 2320.72 mGy.cm FINDINGS: An enteric tube is noted on the tomogram. Brain parenchyma: The brain parenchyma is normal in appearance. There is no hemorrhage, mass effect, or evidence of acute territorial ischemia by CT criteria. Bed[place]-white matter differentiation is preser aman. No extra-axial fluid collection is seen. Ventricles, sulci, cisterns: Normal in configuration. Intracranial vasculature: There is mild atherosclerotic calcification of the cavernous carotid arteri es. Calvarium: Unremarkable. Sinuses and mastoids: There are is a small one of fluid within the sphenoid sinuses. The remaining vi sualized paranasal sinuses are clear. There are large bilateral mastoid effusions. Orbits: The bony orbits are grossly intact. IMPRESSION: 1. There is no hemorrhage, mass effect, or evidence of acute territorial ischemia by CT criteria. 2. Large bilateral mastoid effusions. ACT 112: Negative or not required by law. Electronically signed by: Reece Cervantes M.D. 11/30/2021 2:57 PM
--- NOTE | 2021-11-30 18:26 | XRay Report ---
BONY ORBITS 3 VIEWS CLINICAL HISTORY: MRI clearance. FINDINGS: 2 views of the bony orbits are obtained. No prior studies are available for comparison at t he time of dictation. The skeletal structures are osteopenic. There is no radiodense/metallic foreign body seen in the region of the bony orbits. The bony orbits are intact as imaged. The visualized par anasal sinuses and the mastoid air cells appear clear. The imaged calvarium appears intact. Enteric t ube is in place. IMPRESSION: There is no radiodense/metallic foreign body seen in the region of the bony orbits. ACT 112: Negative or not required by law. Electronically signed by: Reece Cervantes M.D. 11/30/2021 6:24 PM
[2021-11-30] MEDS: fentaNYL citrate 100 MCG/2 ML VIAL IV PRN (22:39)
[2021-12-01] MEDS: TUBE FEEDING WATER FLUSH OG SCH ×7 (00:15→21:32)
[2021-12-01] MEDS: CEFEPIME 1,000 MG in SYRINGE 0 ML IV SCH (00:15)
[2021-12-01] MEDS: ENOXAPARIN 80 MG/0.8 ML SYR SQ SCH ×2 (00:15→11:28)
[2021-12-01] MEDS: INSULIN ASPART PER UNIT SC SCH ×6 (00:18→20:26)
[2021-12-01] MEDS: oxyCODONE HCL IR 5 MG TAB (IMMEDIATE RELEASE) PO SCH ×4 (04:15→21:42)
[2021-12-01] MEDS: DEXMEDETOMIDINE HCL 400 MCG in 0.9 % SODIUM CHLORIDE 96 ML IV SCH ×2 (04:55→21:41)
[2021-12-01 05:29] LABS: Albumin Level 2.3 gm/dl (3.4-5.0); BUN Creatinine Ratio 51.8 (10-20); Calcium 9.9 mg/dl (8.5-10.1); Creatinine Clr Calc Pharmacy 46.4 ml/min; Est GFR (African American) 51.1 ml/min; Est GFR (Non-African American) 44.1 ml/min; Magnesium 2.6 mg/dl (1.8-2.4); Potassium 4.9 mmol/L (3.5-5.1)
[2021-12-01 05:31] LABS: Hematocrit (blood only) 34.4 % (42-52); Hemoglobin 10.8 g/dL (14.0-18.0); Mean Corpuscular Hemoglobin 29.5 pg (25-34); Mean Corpuscular Hgb Conc 31.4 g/dL (32-36); Mean Platelet Volume 9.8 fL (7.4-10.4); Platelet Count 374 K/uL (130-400); RDW Coefficient of Variation 15.1 % (11.5-14.5); RDW Standard Deviation 52.1 fL (36.4-46.3); Red Blood Count 3.66 M/uL (4.7-6.1); White Blood Count 25.54 K/uL (4.8-10.8)
[2021-12-01 05:32] LABS: Basophils # (auto) 0.02 K/uL (0-0.2); Basophils % (auto) 0.1 %; Eosinophils # (auto) 0.01 K/uL (0-0.5); Immature Granulocytes # (auto) 0.15 K/uL (0.00-0.02); Immature Granulocytes % (auto) 0.6 %; Lymphocytes # (auto) 1.51 K/uL (1.2-3.4); Lymphocytes % (auto) 5.9 %; Monocytes # (auto) 0.65 K/uL (0.11-0.59); Monocytes % (auto) 2.5 %; Neutrophils % (auto) 90.9 %; RBC Morphology Unremarkable
[2021-12-01 05:39] LABS: Bilirubin Direct 0.4 mg/dl (0-0.2); Bilirubin,Total 0.7 mg/dl (0.2-1); Phosphorus 3.3 mg/dl (2.5-4.9); Total Protein 7.3 gm/dl (6.4-8.2)
[2021-12-01 05:44] LABS: iSTAT Art Bld Gas pCO2 Correct 73 mmHg (35-46); iSTAT Art Bld Gas pH Corrected 7.262 (7.35-7.45); iSTAT Arterial Blood Gas HCO3 33 meg/L (19-24); iSTAT Arterial Blood Gas pCO2 73 mmHg (35-46); iSTAT Arterial Blood Gas pH 7.26 (7.35-7.45); iSTAT Arterial Blood Gas pO2 74 mmHg (80-95); iSTAT Arterial Blood Gas pO2 C 74; iSTAT Carbon Dioxide 35 mmol/L (24-31); iSTAT Hematocrit 33 % (42-52); iSTAT Hemoglobin 11.2 g/dl (14.0-18.0); iSTAT Potassium 4.8 mmol/L (3.3-5.0); iSTAT Site R Radial; iSTAT Sodium 133 mmol/L (135-144)
[2021-12-01] MEDS: PEPTAMEN INTENSE VHP 1.0 CAL 1,000 ML BAG OG SCH (06:21)
--- NOTE | 2021-12-01 07:39 | XRay Report ---
XR chest 1V portable CLINICAL HISTORY: RESP FAILURE TECHNIQUE: Single frontal radiograph of the chest was obtained. Comparison: Comparison is made to chest one view 11/30/2021 FINDINGS: Lines and tubes are stable. The cardiomediastinal silhouette is obscured. Redemonstration of multifoc al airspace opacities. No evidence of pleural effusion or pneumothorax. IMPRESSION: Multifocal airspace opacities are unchanged from prior exam. Lines and tubes are stable. ACT 112: Negative or not required by law. Electronically signed by: Quincy Morton M.D. 12/01/2021 7:38 AM
[2021-12-01] MEDS ORDERED: NORMOSOL-R 1,000 ML IV SCH (08:15)
[2021-12-01] MEDS: ASCORBIC ACID 500 MG TAB PO SCH (08:20)
[2021-12-01] MEDS: QUEtiapine FUMARATE 25 MG TABLET PO SCH ×2 (08:20→20:25)
[2021-12-01] MEDS: METOPROLOL TARTRATE 50 MG TAB PO SCH (08:21)
[2021-12-01] MEDS: MIDODRINE HCL 2.5 MG TAB PO SCH ×3 (08:21→17:46)
[2021-12-01] MEDS: dexAMETHasone 5 MG in SYRINGE 0 ML IV SCH (08:21)
[2021-12-01] MEDS: MULTI VIT W/MINERALS LIQUID 15 ML UDP NG SCH (08:22)
[2021-12-01] MEDS: ZINC SULFATE 220 MG CAPSULE PO SCH (08:22)
[2021-12-01] MEDS: DOCUSATE SODIUM SYRUP 100 MG/10 ML UDC PO SCH ×2 (08:22→21:31)
[2021-12-01] MEDS: PANTOprazole 40 MG in SYRINGE 0 ML IV SCH (08:23)
[2021-12-01] MEDS ORDERED: PHENYLEPHRINE HCL 20 MG in DEXTROSE 5% 500 ML IV SCH (10:00)
[2021-12-01] MEDS: CEFEPIME 2,000 MG in SYRINGE 0 ML IV SCH ×2 (11:18→21:32)
[2021-12-01] MEDS: clonazePAM 1 MG TAB PO SCH ×2 (11:20→20:24)
--- NOTE | 2021-12-01 12:08 | Pharmacy Report ---
Pharmacy Glycemic Short Note 2 - Date of Service December 01, 2021 - Glycemic Short BSG Results (Last 24 hours): 11/30/21 11/30/21 11/30/21 14:31 16:25 19:53 Glucose POC Glucose 144 H 148 H 135 H 12/01/21 12/01/21 12/01/21 00:12 04:11 04:24 Glucose 190 H POC Glucose 154 H 191 H 12/01/21 12/01/21 08:00 11:56 Glucose POC Glucose 161 H 187 H OUTPATIENT ANTIDIABETIC REGIMEN: * n/a * A1c 6.0% ASSESSMENT: 12/01: * BSGs fairly well controlled over last 24 hrs despite receipt of pressors, continuous tube feeds, and IV steroids. * Today patients sedation regimen has been changed, norepi is being converted to phenylephrine, and dexamethasone dose is dropping 33% to 5mg IV daily * Will mix pressor in NSS to avoid high rates of D5W provision as base solution 11/28: * BSGs again well controlled over last 24 hrs. 5 units SQ insulin given in last 24 hrs to cover carbs in continuous tube feeds. * Patient remains on vent s/p trach, tube feeds are running at 50cc/hr ([facility]), pressors have been weaned off and IV dexamethasone dose reduced 25% today. * No need for addition of basal insulin given current BSG pattern. May be able to wean Novolog doses down with each step down in steroid dose. Pt has no prior h/o DM and A1c only consistent w/ "pre-DM" PLAN FOR INPATIENT GLYCEMIC CONTROL: * No basal insulin * NovoLog per scale Q4hrs * Goal range 110-140 mg/dl * CF = 30 mg/dl/unit * CR = 10g/unit
[2021-12-01] MEDS: PHENYLEPHRINE HCL 20 MG in SODIUM CHLORIDE 0.9% 500 ML IV SCH (13:00)
--- NOTE | 2021-12-01 13:31 | Critical Care Progress Note ---
Date of Service December 01, 2021 Assessment & Plan (1) Acute hypoxemic respiratory failure due to COVID-19: (2) 2019 novel coronavirus-infected pneumonia (NCIP): (3) Factor V Leiden carrier: (4) Pneumomediastinum: Plan: CT chest 11/19/2021 personally reviewed: Diffuse patchy opacities appreciated bilaterally upper and lower lobes I do think there is a component of fibrosis to certain degree Bilateral pleural effusion small No significant mediastinal lymphadenopathy Neuro: Sedation: Clonazepam 1 mg twice daily -Seroquel increased to 50 mg BID -Precedex discontinued 12/01/2021 Analgesia: Oxycodone taper Cardiovascular: Hypotension: -Levophed changed to phenylephrine 12/01/2021 -Continue with midodrine 5 mg 3 times daily Respiratory: -- VDRF --> s/p trach 11/26/1943 Likely secondary toAcute hypoxic respiratory failure Secondary to multilobar COVID-19 pneumonia Patient has very poor compliance. Continue with ventilatory support Intubation 11/20 Tracheostomy 11/26 COVID-19 + 11/03/2021 No central PE on CTA 11/19/2021 Patient was started on late DEXA ARDS protocol -Transition from 10 mg daily to 7.5 mg x 3 days then 5 mg x 3 days then 2.5 mg x 3 days then stop Patient is not a candidate for ECMO Renal: -- FRANDY Monitor BUN/creatinine Avoid nephrotoxic medications Strict ins and outs --Constipationresolved 11/29 --Pulmonary hypertension Type III likely from pulmonary fibrosis likely developing from COVID-19 pneumonia --Pneumomediastinum Small ID: --Febrile illness -Blood cultures 11/27 no growth to date -UA largely unremarkable -Vaughn out 11/28 transition to [facility] -Sputum culture 12/01/2021 Heme: --History of factor Leiden deficiency Therapeutic Lovenox --Prophylaxis VTE: Lovenox therapeutic GI: Protonix once daily Lines:Left IJ discontinue 11/28, right radial 11/28 Diet: Tube feeds Plan: In/out: +1.3 L, urine output 1100 mL AB.26/73/74 on PEEP of 8, 100% Chest x-ray still showed diffuse bilateral opacities. Mild improvement compared to before Patient's FRANDY could be from hypotensive episodes overnight. We will give Normosol 500 mL. Hold diuretics for the time being. I will hold Lopressor as well. I will put the patient on mittens when family is not around as he has previously removed NGT. I would not want an accident that he removes his trach. Decrease oxycodone to 10 mg every 8 Continue with cefepime for total of 5 days. Patient's [phone] I have personally spent 41 minutes of critical care time in the direct management of this patient. This is a life/limb threatening event. This includes time spent evaluating patient, direct bedside care, chart review, placing orders, interpretation of diagnostic studies, discussion with consultants, patient, and family members, as well as other required patient management activities. This time is exclusive of all separately billable procedures, and teaching time and separate from and in addition to any other critical care service time. Please note the above document was generated using voice recognition software. It may contain grammatical, syntax or spelling errors. Admission and Anticipated Discharge Date Admission Date: November 03, 2021 Subjective Patient seen and examined at bedside. Patient's family was also in the room He was on Precedex 0.03 at the time of examination Patient was breathing in the high 20s Has been afebrile FiO2 was 100%. I did go down to 90% and he was saturating well I will gradually go down more. Review of Systems Review of Systems: All systems reviewed & are unremarkable except as noted in Subjective Physical Exam Physical Exam: Constitutional: No acute distress HEENT: PERRLA,malar rash, positive trach Respiratory system:Decreased air entry bilaterally, no wheeze, rhonchi, positive crackles bilaterally CVS: S1-S2 positive, no murmurs or gallops Abdomen: Soft, nontender, nondistended, positive bowel sounds x4 Extremities: +2 pulses bilaterally radialis/ dorsalis pedis,no cyanosis, +1 edema LLE Neuro:Breathing over the vent, following simple commands Psych:Unable to assess G/U: [place] Skin: no rashes, warm and dry Lymphatic: no cervical or axillary lymphadenopathy Results & Data Results & Data ([facility]) Vital Signs (Past 12 Hours) Vital Signs Temp Pulse Pulse Resp BP BP Pulse Ox 12/01/21 11:00 99 H 24 100/60 95 12/01/21 10:59 102 H 26 H 94 12/01/21 10:45 98 H 19 104/65 96 01/03/22 10:30 96 H 24 103/58 L 95 12/01/21 10:15 96 H 25 H 97/56 L 94 12/01/21 10:00 98 H 25 H 95/56 L 94 12/01/21 09:45 108 H 25 H 93/57 L 93 12/01/21 09:30 93 H 27 H 98/53 L 92 12/01/21 09:15 95 H 25 H 101/58 L 93 12/01/21 09:00 101 H 25 H 105/64 95 12/01/21 08:47 100 H 26 H 94 12/01/21 08:45 110 H 30 H 131/63 95 12/01/21 08:30 99 H 30 H 115/59 L 94 12/01/21 08:15 106 H 33 H 110/60 94 12/01/21 08:00 109 H 27 H 130/68 95 12/01/21 07:45 100 H 29 H 135/70 95 12/01/21 07:30 102 H 25 H 143/69 H 93 12/01/21 07:15 93 H 28 H 120/59 L 94 12/01/21 07:00 114 H 31 H 120/64 94 12/01/21 06:00 110 H 28 H 129/60 93 12/01/21 05:00 117 H 28 H 120/62 92 12/01/21 04:45 33 H 12/01/21 04:00 37.2 C 115 H 30 H 126/61 92 12/01/21 03:00 97 H 30 H 103/51 L 95 12/01/21 01:38 94 H 30 H 96/51 L 97 12/01/21 04:24 12/01/21 04:24 Coding Level of Care Code Critical Care 1st 30-74 mins Diagnoses Acute hypoxemic respiratory failure due to COVID-19 U07.1; J96.01 2019 novel coronavirus-infected pneumonia (NCIP) U07.1; J12.82 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 Time Spent (min) 41
--- NOTE | 2021-12-01 14:17 | Electrocardiogram Report ---
Test Reason : Blood Pressure : / mmHG Vent. Rate : 097 BPM Atrial Rate : 097 BPM P-R Int : 136 ms QRS Dur : 082 ms QT Int : 318 ms P-R-T Axes : 055 -17 028 degrees QTc Int : 403 ms Normal sinus rhythm Normal ECG When compared with ECG of 19-NOV-2021 13:58, QRS axis Shifted right Confirmed by Axel Martinez ([id number]) on 12/01/2021 2:17:06 PM Referred By: REFERRED SELF Confirmed By:Axel Martinez
[2021-12-01] MEDS ORDERED: ADENOSINE IV SOLN 3 MG/ML 2 ML VIAL IV ONE (15:06)
--- NOTE | 2021-12-01 15:23 | Hospitalist Progress Note ---
Date of Service December 01, 2021 Assessment & Plan (1) COVID-19: Plan: Acute hypoxic respiratory failure due to COVID-19 pneumonia Tested positive to COVID 19 on 10/27/21 Initially completed course of remdesivir and dexamethasone Did not meet criteria for baricitinib as patient was already admitted for more than 72 hours Acute worsening respiratory status CT PE did not show any PE but showed progression of bilateral opacities, small amount of pneumomediastinum and small bilateral pleural effusion. Concern for firbrosis per crit team. Had previously completed cefepime and doxycycline. Intubated on 11/20/21 --> 11/26/2021 tracheostomy status, on mechanical ventilation being managed per critical care team. Per prior attending: On 11/20/21, I called [facility] and spoke with Dr. Samson. We discussed patient. Unfortunately, patient is not an ECMO candidate MRSA swab is negative Patient on late DEXA ARDS protocol. Dinkey Dispatcher on board managing vent and sedation Plan to sent sputum Cx today, plan to wean down precedex, still requiring high FiO2. Febrile illness: 11/27 blood culture no growth so far, urinary catheter removed, CT chest abdomen and pelvis sent 11/29/21 s/o worsening GGO w/ small pleural eff. and nonspecific enteritis of distal ileum. Patient started on cefepime 11/29 for ?Pul Infection. plan to send sputum Cx today. Acute Hyponatremia FRANDY likely related to hypotension - reappeared, likely d/t hypotensive episodes again, ivf given, pt on pressor support. Hypotension - on levophed again. 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 reported as she already discussed with the forensics analyst and will likely proceed with tracheostomy at some point. (2) Nausea vomiting and diarrhea: Admission and Anticipated Discharge Date Admission Date: November 03, 2021 Subjective Patient was lying in bed, sedated and mechanically ventilated via tracheostomy tube. Patient not arousable and hence ROS n/a. Per RN, he is doing better neurologically, plan to taper down sedation and wean FiO2. Patient currently on Precedex drip and requiring Levophed. Plan to switch Levophed to Julio Cesar- Synephrine. Physical Exam Physical Exam: GENERAL: Sedated on Precedex, tracheostomy status, on mechanical ventilation HEENT: No pallor, no icterus. Pupils equal, round and reactive to light. Oral mucosa moist. NECK: No JVD, no neck masses. HEART: S1 and S2 heard. Regular rate and rhythm. No murmur, no gallop. RESPIRATORY SYSTEM: Normal AP diameter. No accessory muscle use. No wheezing, increased breath sounds bilaterally with crackles. ABDOMEN: Soft, bowel sounds present, no distention. CENTRAL NERVOUS SYSTEM: unable to arouse d/t sedation, n/a EXTREMITIES: 2+ LLE edema,RLE trace edema, no erythema seen. Results & Data Results & Data ([facility]) Vital Signs (Past 12 Hours) Vital Signs Temp Pulse Pulse Resp BP BP Pulse Ox 12/01/21 14:49 111 H 27 H 92 12/01/21 11:00 99 H 24 100/60 95 12/01/21 10:59 102 H 26 H 94 12/01/21 10:45 98 H 19 104/65 96 12/01/21 10:30 96 H 24 103/58 L 95 12/01/21 10:15 96 H 25 H 97/56 L 94 12/01/21 10:00 98 H 25 H 95/56 L 94 12/01/21 09:45 108 H 25 H 93/57 L 93 12/01/21 09:30 93 H 27 H 98/53 L 92 12/01/21 09:15 95 H 25 H 101/58 L 93 12/01/21 09:00 101 H 25 H 105/64 95 12/01/21 08:47 100 H 26 H 94 12/01/21 08:45 110 H 30 H 131/63 95 12/01/21 08:30 99 H 30 H 115/59 L 94 12/01/21 08:15 106 H 33 H 110/60 94 12/01/21 08:00 109 H 27 H 130/68 95 12/01/21 07:45 100 H 29 H 135/70 95 12/01/21 07:30 102 H 25 H 143/69 H 93 12/01/21 07:15 93 H 28 H 120/59 L 94 12/01/21 07:00 114 H 31 H 120/64 94 12/01/21 06:00 110 H 28 H 129/60 93 12/01/21 05:00 117 H 28 H 120/62 92 12/01/21 04:45 33 H 12/01/21 04:00 37.2 C 115 H 30 H 126/61 92
[2021-12-01] MEDS ORDERED: INSULIN GLARGINE SOLOSTAR 100 UNITS/ML 3 ML PEN SC ONE (16:00)
[2021-12-01] MEDS: NOVASOURCE RENAL 2.0 CAL 1000ML BAG NG SCH (17:09)
[2021-12-01] MEDS ORDERED: METOPROLOL TARTRATE 25 MG TAB PO SCH (21:00)
[2021-12-01] MEDS: NOREPINEPHRINE/D5W 8 MG/508 ML BAG IV SCH ×2 (21:40→21:41)
[2021-12-02] MEDS: INSULIN ASPART PER UNIT SC SCH ×7 (00:29→23:51)
[2021-12-02] MEDS: ENOXAPARIN 80 MG/0.8 ML SYR SQ SCH ×3 (00:30→23:52)
[2021-12-02] MEDS: PHENYLEPHRINE HCL 20 MG in SODIUM CHLORIDE 0.9% 500 ML IV SCH ×4 (00:30→23:39)
[2021-12-02] MEDS: ACETAMINOPHEN 325 MG TAB PO PRN ×3 (02:22→21:12)
[2021-12-02] MEDS: TUBE FEEDING WATER FLUSH OG SCH ×6 (03:43→23:49)
[2021-12-02 05:13] LABS: iSTAT Allen Test Pass; iSTAT Art Bld Gas pCO2 Correct 85 mmHg (35-46); iSTAT Arterial Blood Gas HCO3 34 meg/L (19-24); iSTAT Arterial Blood Gas pCO2 84 mmHg (35-46); iSTAT Arterial Blood Gas pH 7.21 (7.35-7.45); iSTAT Arterial Blood Gas pO2 147 mmHg (80-95); iSTAT Arterial Blood Gas pO2 C 149; iSTAT Carbon Dioxide 36 mmol/L (24-31); iSTAT FiO2 100 %; iSTAT Hematocrit 31 % (42-52); iSTAT Hemoglobin 10.5 g/dl (14.0-18.0); iSTAT Potassium 4.5 mmol/L (3.3-5.0); iSTAT Site R Radial; iSTAT Sodium 136 mmol/L (135-144)
[2021-12-02] MEDS: oxyCODONE HCL IR 5 MG TAB (IMMEDIATE RELEASE) PO SCH (05:50)
--- NOTE | 2021-12-02 07:24 | XRay Report ---
XR chest 1V portable CLINICAL HISTORY: Resp failure TECHNIQUE: Single frontal radiograph of the chest was obtained. Comparison: Comparison is made to chest one view 12/01/2021 FINDINGS: Lines and tubes are stable. The cardiomediastinal silhouette is obscured. Multifocal airspace opaciti es are seen. No evidence of pleural effusion or pneumothorax. IMPRESSION: Multifocal airspace opacities may represent atelectasis, pneumonia, and/or aspiration. This is stable to minimally increased from prior exam. ACT 112: Negative or not required by law. Electronically signed by: Quincy Morton M.D. 12/02/2021 7:23 AM
[2021-12-02 08:03] LABS: Basophils # (auto) 0.02 K/uL (0-0.2); Basophils % (auto) 0.1 %; Eosinophils # (auto) 0.14 K/uL (0-0.5); Eosinophils % (auto) 0.8 %; Hematocrit (blood only) 38.3 % (42-52); Hemoglobin 11.7 g/dL (14.0-18.0); Immature Granulocytes # (auto) 0.27 K/uL (0.00-0.02); Immature Granulocytes % (auto) 1.6 %; Lymphocytes # (auto) 1.47 K/uL (1.2-3.4); Lymphocytes % (auto) 8.5 %; Mean Corpuscular Hemoglobin 29.4 pg (25-34); Mean Corpuscular Hgb Conc 30.5 g/dL (32-36); Mean Corpuscular Volume 96.2 fL (80-100); Mean Platelet Volume 9.9 fL (7.4-10.4); Monocytes # (auto) 0.26 K/uL (0.11-0.59); Monocytes % (auto) 1.5 %; Neutrophils # (auto) 15.13 K/uL (1.4-6.5); Neutrophils % (auto) 87.5 %; Platelet Count 396 K/uL (130-400); RDW Coefficient of Variation 15.5 % (11.5-14.5); RDW Standard Deviation 54.8 fL (36.4-46.3); Red Blood Count 3.98 M/uL (4.7-6.1); White Blood Count 17.29 K/uL (4.8-10.8)
[2021-12-02 08:20] LABS: BUN Creatinine Ratio 55.6 (10-20); Calcium 10.1 mg/dl (8.5-10.1); Creatinine Clr Calc Pharmacy 47.8 ml/min; Est GFR (Non-African American) 45.8 ml/min; Potassium 4.6 mmol/L (3.5-5.1)
[2021-12-02] MEDS: ASCORBIC ACID 500 MG TAB PO SCH (08:28)
[2021-12-02] MEDS: DOCUSATE SODIUM SYRUP 100 MG/10 ML UDC PO SCH ×2 (08:28→20:39)
[2021-12-02] MEDS: QUEtiapine FUMARATE 25 MG TABLET PO SCH (08:28)
[2021-12-02] MEDS: PANTOprazole 40 MG in SYRINGE 0 ML IV SCH (08:29)
[2021-12-02] MEDS: ZINC SULFATE 220 MG CAPSULE PO SCH (08:29)
[2021-12-02] MEDS: MIDODRINE HCL 2.5 MG TAB PO SCH ×3 (08:29→16:39)
[2021-12-02] MEDS: dexAMETHasone 5 MG in SYRINGE 0 ML IV SCH (08:30)
[2021-12-02] MEDS: clonazePAM 1 MG TAB PO SCH (08:32)
[2021-12-02] MEDS: SODIUM CHLORIDE 0.9% 1000ML 1,000 ML IV SCH ×2 (09:49→18:33)
[2021-12-02] MEDS ORDERED: oxyCODONE HCL IR 5 MG TAB (IMMEDIATE RELEASE) PO SCH (10:30)
[2021-12-02] MEDS: CEFEPIME 2,000 MG in SYRINGE 0 ML IV SCH ×2 (12:08→21:12)
--- NOTE | 2021-12-02 12:10 | Electrocardiogram Report ---
Test Reason : Blood Pressure : / mmHG Vent. Rate : 126 BPM Atrial Rate : 126 BPM P-R Int : 122 ms QRS Dur : 084 ms QT Int : 292 ms P-R-T Axes : 055 005 024 degrees QTc Int : 422 ms Sinus tachycardia Biatrial enlargement Abnormal ECG When compared with ECG of 01-DEC-2021 10:47, No significant change was found Confirmed by Axel Martinez ([id number]) on 12/02/2021 12:10:13 PM Referred By: REFERRED SELF Confirmed By:Axel Martinez
[2021-12-02] MEDS ORDERED: INSULIN GLARGINE SOLOSTAR 100 UNITS/ML 3 ML PEN SC ONE (12:30)
--- NOTE | 2021-12-02 14:40 | Critical Care Progress Note ---
Date of Service December 02, 2021 Assessment & Plan (1) Acute hypoxemic respiratory failure due to COVID-19: (2) 2019 novel coronavirus-infected pneumonia (NCIP): (3) Factor V Leiden carrier: (4) Pneumomediastinum: Plan: CT chest 11/19/2021 personally reviewed: Diffuse patchy opacities appreciated bilaterally upper and lower lobes I do think there is a component of fibrosis to certain degree Bilateral pleural effusion small No significant mediastinal lymphadenopathy Neuro: Sedation: Clonazepam 1 mg twice daily --> On hold 12/02/2021 -Seroquel increased to 50 mg BID --> on hold 12/02/2021 -Precedex discontinued 12/01/2021 Analgesia: Oxycodone taper Cardiovascular: Hypotension: -Levophed changed to phenylephrine 12/01/2021 -Continue with midodrine 5 mg 3 times daily Respiratory: -- VDRF --> s/p trach 11/26/1943 Likely secondary toAcute hypoxic respiratory failure Secondary to multilobar COVID-19 pneumonia Patient has very poor compliance. Continue with ventilatory support Intubation 11/20 Tracheostomy 11/26 COVID-19 + 11/03/2021 No central PE on CTA 11/19/2021 Patient was started on late DEXA ARDS protocol -Transition from 10 mg daily to 7.5 mg x 3 days then 5 mg x 3 days then 2.5 mg x 3 days then stop Patient is not a candidate for ECMO Renal: -- FRANDY Monitor BUN/creatinine Avoid nephrotoxic medications Strict ins and outs --Constipationresolved 11/29 --Pulmonary hypertension Type III likely from pulmonary fibrosis likely developing from COVID-19 pneumonia --Pneumomediastinum Small ID: --Febrile illness -Blood cultures 11/27 no growth to date -UA largely unremarkable -Vaughn out 11/28 transition to [facility] -Sputum culture 12/01/2021 Heme: --History of factor Leiden deficiency Therapeutic Lovenox --Prophylaxis VTE: Lovenox therapeutic GI: Protonix once daily Lines:Left IJ discontinued 11/28, right radial 11/28 Diet: Tube feeds Plan: In/out: +190, urine output 2300 AB.21/84/147 on PEEP of 8, 100% Chest x-ray from today does not show any significant change in bilateral alveolar opacities. We will give the patient normal saline 125 mill NR for 8 hours. Increase the tidal volume to 420 for the hypercapnia Patient's mental status is not good today. Patient has waxing and waning it could be from underlying oxycodone, Seroquel as well as clonazepam. We will hold everything and see if the patient starts to respond. If there is no response then we will get an MRI of the brain Patient's [phone] I have personally spent 38 minutes of critical care time in the direct management of this patient. This is a life/limb threatening event. This includes time spent evaluating patient, direct bedside care, chart review, placing orders, interpretation of diagnostic studies, discussion with consultants, patient, and family members, as well as other required patient management activities. This time is exclusive of all separately billable procedures, and teaching time and separate from and in addition to any other critical care service time. Please note the above document was generated using voice recognition software. It may contain grammatical, syntax or spelling errors. Admission and Anticipated Discharge Date Admission Date: November 03, 2021 Subjective Patient seen and examined at bedside. No acute distress. Today patient is more somnolent. Is not waking up or answering any questions. Is breathing over the vent. He did get clonazepam in the morning as well as oxycodone which is getting [id number] He has been spiking low-grade fever again. On low-dose vasopressor support Review of Systems Review of Systems: Unobtainable due to reduced consciousness Physical Exam Physical Exam: Constitutional: No acute distress HEENT: PERRLA,malar rash, positive trach Respiratory system:Decreased air entry bilaterally, no wheeze, rhonchi, positive crackles bilaterally CVS: S1-S2 positive, no murmurs or gallops Abdomen: Soft, nontender, nondistended, positive bowel sounds x4 Extremities: +2 pulses bilaterally radialis/ dorsalis pedis,no cyanosis, +1 edema LLE Neuro:Breathing over the vent, following simple commands Psych:Unable to assess G/U: [place] Vaughn Skin: no rashes, warm and dry Lymphatic: no cervical or axillary lymphadenopathy Results & Data Results & Data ([facility]) Vital Signs (Past 12 Hours) Vital Signs Temp Pulse Resp BP Pulse Ox 12/02/21 13:00 123 H 28 H 125/64 89 L 12/02/21 12:45 130 H 33 H 123/64 89 L 12/02/21 12:30 131 H 34 H 132/63 88 L 12/02/21 12:15 124 H 37 H 123/66 89 L 12/02/21 12:00 126 H 34 H 145/73 H 95 12/02/21 11:45 119 H 27 H 115/61 91 12/02/21 11:30 122 H 30 H 105/58 L 91 12/02/21 11:15 120 H 29 H 111/55 L 90 12/02/21 11:00 122 H 30 H 115/58 L 90 12/02/21 10:45 122 H 36 H 115/60 90 12/02/21 10:30 122 H 32 H 116/57 L 90 12/02/21 10:17 119 H 31 H 90 12/02/21 10:15 123 H 34 H 115/54 L 90 12/02/21 10:00 124 H 24 107/50 L 89 L 12/02/21 09:56 124 H 25 H 107/51 L 89 L 12/02/21 09:51 37.9 C H 12/02/21 09:45 124 H 25 H 99/50 L 88 L 12/02/21 09:30 127 H 12 88/49 L 89 L 12/02/21 09:28 128 H 29 H 94/45 L 92 12/02/21 09:25 127 H 28 H 84/42 L 92 12/02/21 09:24 128 H 29 H 91/46 L 91 12/02/21 09:15 127 H 33 H 95/44 L 92 12/02/21 09:00 128 H 24 105/52 L 94 12/02/21 08:45 131 H 28 H 136/59 L 93 12/02/21 08:35 129 H 30 H 91 12/02/21 08:30 123 H 28 H 140/65 93 12/02/21 08:15 121 H 26 H 128/66 99 12/02/21 08:00 138 H 15 148/68 H 92 12/02/21 07:45 125 H 31 H 94 12/02/21 07:31 125 H 29 H 138/71 93 12/02/21 07:30 132 H 30 H 93 12/02/21 07:15 124 H 28 H 93 12/02/21 07:00 128 H 30 H 125/67 92 12/02/21 06:45 120 H 28 H 93 12/02/21 06:30 122 H 27 H 120/59 L 93 12/02/21 06:15 129 H 28 H 92 12/02/21 06:00 134 H 30 H 138/65 91 12/02/21 05:30 127 H 29 H 120/65 90 12/02/21 05:00 125 H 29 H 144/69 H 89 L 12/02/21 04:30 37.2 C 125 H 22 124/66 99 12/02/21 04:00 122 H 0 L 96/50 L 98 12/02/21 03:30 126 H 20 86/51 L 97 12/02/21 03:00 121 H 128/67 87 L Laboratory Results 12/02/21 07:49 12/02/21 07:49 Coding Level of Care Code Critical Care 1st 30-74 mins Diagnoses Acute hypoxemic respiratory failure due to COVID-19 U07.1; J96.01 2019 novel coronavirus-infected pneumonia (NCIP) U07.1; J12.82 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 Time Spent (min) 38
--- NOTE | 2021-12-02 15:22 | Hospitalist Progress Note ---
Date of Service December 02, 2021 Assessment & Plan (1) COVID-19: Plan: Acute hypoxic respiratory failure due to COVID-19 pneumonia Tested positive to COVID 19 on 10/27/21 Initially completed course of remdesivir and dexamethasone Did not meet criteria for baricitinib as patient was already admitted for more than 72 hours Acute worsening respiratory status CT PE did not show any PE but showed progression of bilateral opacities, small amount of pneumomediastinum and small bilateral pleural effusion. Concern for firbrosis per crit team. Had previously completed cefepime and doxycycline. Intubated on 11/20/21 --> 11/26/2021 tracheostomy status, on mechanical ventilation being managed per critical care team. Per prior attending: On 11/20/21, I called [facility] and spoke with Dr. Samson. We discussed patient. Unfortunately, patient is not an ECMO candidate MRSA swab is negative Patient on late DEXA ARDS protocol. Wax Blender on board managing vent and sedation 12/01 sputum Cx - NG, final results to follow, off of precedex, still requiring high FiO2 (60%) Pt not responding at bedside exam, plan to stop clonazepam/oxycodone/seroquel and see if responds. Pt off of precredex today. Febrile illness: 11/27 blood culture no growth so far, urinary catheter removed, CT chest abdomen and pelvis sent 11/29/21 s/o worsening GGO w/ small pleural eff. and nonspecific enteritis of distal ileum. Patient started on cefepime 11/29 for ?Pul Infection. Sputum Cx sent 12/01. . Acute Hyponatremia FRANDY likely related to hypotension - reappeared, likely d/t hypotensive episodes again, ivf given, pt on pressor support. Hypotension - on pressor support. 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 reported as she already discussed with the arcgis developer and will likely proceed with tracheostomy at some point. (2) Nausea vomiting and diarrhea: Admission and Anticipated Discharge Date Admission Date: November 03, 2021 Subjective Patient was lying in bed, sedated and not responding, mechanically ventilated, tracheostomy status, ROSn/a. 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 CCM Plan is to hold oxycodone/Seroquel/clonazepam and assess if the patient discharged to respond neurologically. Physical Exam Physical Exam: GENERAL: Sedated on Precedex, tracheostomy status, on mechanical ventilation. Non responding HEENT: No pallor, no icterus. Pupils equal, round and reactive to light. Oral mucosa moist. NECK: No JVD, no neck masses. HEART: S1 and S2 heard. Regular rate and rhythm. No murmur, no gallop. RESPIRATORY SYSTEM: Normal AP diameter. No accessory muscle use. No wheezing, increased breath sounds bilaterally with crackles. ABDOMEN: Soft, bowel sounds present, no distention. CENTRAL NERVOUS SYSTEM: unable to arouse d/t sedation, n/a EXTREMITIES: 2+ LLE edema,RLE trace edema, no erythema seen. Results & Data Results & Data ([facility]) Vital Signs (Past 12 Hours) Vital Signs Temp Pulse Resp BP Pulse Ox 12/02/21 13:00 123 H 28 H 125/64 89 L 12/02/21 12:45 130 H 33 H 123/64 89 L 12/02/21 12:30 131 H 34 H 132/63 88 L 12/02/21 12:15 124 H 37 H 123/66 89 L 12/02/21 12:00 126 H 34 H 145/73 H 95 12/02/21 11:45 119 H 27 H 115/61 91 12/02/21 11:30 122 H 30 H 105/58 L 91 12/02/21 11:15 120 H 29 H 111/55 L 90 12/02/21 11:00 122 H 30 H 115/58 L 90 12/02/21 10:45 122 H 36 H 115/60 90 12/02/21 10:30 122 H 32 H 116/57 L 90 12/02/21 10:17 119 H 31 H 90 12/02/21 10:15 123 H 34 H 115/54 L 90 12/02/21 10:00 124 H 24 107/50 L 89 L 12/02/21 09:56 124 H 25 H 107/51 L 89 L 12/02/21 09:51 37.9 C H 12/02/21 09:45 124 H 25 H 99/50 L 88 L 12/02/21 09:30 127 H 12 88/49 L 89 L 12/02/21 09:28 128 H 29 H 94/45 L 92 12/02/21 09:25 127 H 28 H 84/42 L 92 12/02/21 09:24 128 H 29 H 91/46 L 91 12/02/21 09:15 127 H 33 H 95/44 L 92 12/02/21 09:00 128 H 24 105/52 L 94 12/02/21 08:45 131 H 28 H 136/59 L 93 12/02/21 08:35 129 H 30 H 91 12/02/21 08:30 123 H 28 H 140/65 93 12/02/21 08:15 121 H 26 H 128/66 99 12/02/21 08:00 138 H 15 148/68 H 92 12/02/21 07:45 125 H 31 H 94 12/02/21 07:31 125 H 29 H 138/71 93 12/02/21 07:30 132 H 30 H 93 12/02/21 07:15 124 H 28 H 93 12/02/21 07:00 128 H 30 H 125/67 92 12/02/21 06:45 120 H 28 H 93 12/02/21 06:30 122 H 27 H 120/59 L 93 12/02/21 06:15 129 H 28 H 92 12/02/21 06:00 134 H 30 H 138/65 91 12/02/21 05:30 127 H 29 H 120/65 90 12/02/21 05:00 125 H 29 H 144/69 H 89 L 12/02/21 04:30 37.2 C 125 H 22 124/66 99 12/02/21 04:00 122 H 0 L 96/50 L 98 12/02/21 03:30 126 H 20 86/51 L 97
[2021-12-02] MEDS: clonazePAM 0.5 MG TAB PO SCH (20:42)
[2021-12-02] MEDS: LORazepam 2 MG/4 ML VIAL IV PRN (21:14)
[2021-12-03] MEDS: NOVASOURCE RENAL 2.0 CAL 1000ML BAG NG SCH (00:42)
[2021-12-03] MEDS: TUBE FEEDING WATER FLUSH OG SCH ×5 (03:27→19:45)
[2021-12-03] MEDS: LORazepam 2 MG/4 ML VIAL IV PRN (03:28)
[2021-12-03] MEDS: INSULIN ASPART PER UNIT SC SCH ×5 (03:30→19:58)
[2021-12-03] MEDS: ACETAMINOPHEN 325 MG TAB PO PRN ×4 (03:31→21:51)
[2021-12-03 03:35] LABS: iSTAT Art Bld Gas pCO2 Correct 70 mmHg (35-46); iSTAT Art Bld Gas pH Corrected 7.296 (7.35-7.45); iSTAT Arterial Blood Gas HCO3 34 meg/L (19-24); iSTAT Arterial Blood Gas pCO2 66 mmHg (35-46); iSTAT Arterial Blood Gas pH 7.32 (7.35-7.45); iSTAT Arterial Blood Gas pO2 65 mmHg (80-95); iSTAT Arterial Blood Gas pO2 C 71; iSTAT Carbon Dioxide 36 mmol/L (24-31); iSTAT FiO2 65 %; iSTAT Hematocrit 32 % (42-52); iSTAT Hemoglobin 10.9 g/dl (14.0-18.0); iSTAT Potassium 4.1 mmol/L (3.3-5.0); iSTAT Site R Brachial; iSTAT Sodium 142 mmol/L (135-144)
[2021-12-03 04:30] LABS: Basophils # (auto) 0.02 K/uL (0-0.2); Basophils % (auto) 0.1 %; Eosinophils # (auto) 0.25 K/uL (0-0.5); Eosinophils % (auto) 1.5 %; Hematocrit (blood only) 33.3 % (42-52); Immature Granulocytes # (auto) 0.21 K/uL (0.00-0.02); Immature Granulocytes % (auto) 1.2 %; Lymphocytes # (auto) 1.48 K/uL (1.2-3.4); Lymphocytes % (auto) 8.8 %; Mean Corpuscular Hemoglobin 29.1 pg (25-34); Mean Corpuscular Volume 96.8 fL (80-100); Mean Platelet Volume 9.4 fL (7.4-10.4); Monocytes # (auto) 0.36 K/uL (0.11-0.59); Monocytes % (auto) 2.1 %; Neutrophils # (auto) 14.55 K/uL (1.4-6.5); Neutrophils % (auto) 86.3 %; Platelet Count 383 K/uL (130-400); RDW Coefficient of Variation 15.7 % (11.5-14.5); RDW Standard Deviation 55.3 fL (36.4-46.3); Red Blood Count 3.44 M/uL (4.7-6.1); White Blood Count 16.87 K/uL (4.8-10.8)
[2021-12-03 05:02] LABS: BUN Creatinine Ratio 63.9 (10-20); Calcium 9.4 mg/dl (8.5-10.1); Creatinine Clr Calc Pharmacy 63.9 ml/min; Est GFR (African American) 75.3 ml/min; Est GFR (Non-African American) 64.9 ml/min; Magnesium 2.5 mg/dl (1.8-2.4); Potassium 3.9 mmol/L (3.5-5.1)
[2021-12-03 05:12] LABS: Phosphorus 1.4 mg/dl (2.5-4.9)
[2021-12-03] MEDS: PHENYLEPHRINE HCL 20 MG in SODIUM CHLORIDE 0.9% 500 ML IV SCH ×2 (05:59→16:45)
[2021-12-03] MEDS ORDERED: POTASSIUM PHOS 3 MMOL/1 ML INFUSION IV STA (06:21)
[2021-12-03] MEDS ORDERED: POTASSIUM PHOSPHATE 9 MMOL in SODIUM CHLORIDE 0.9% 250 ML IV ONE (07:00)
--- NOTE | 2021-12-03 08:24 | XRay Report ---
XR chest 1V portable CLINICAL HISTORY: Resp failure TECHNIQUE: Single frontal radiograph of the chest was obtained. Comparison: Comparison is made to chest one view 12/02/2021 FINDINGS: Lines and tubes are stable. The cardiomediastinal silhouette is obscured. Multifocal airspace opaciti es are seen. No evidence of pleural effusion or pneumothorax. IMPRESSION: Multifocal airspace opacities may represent atelectasis, pneumonia, and/or aspiration. Findings are u nchanged from prior exam. ACT 112: Negative or not required by law. Electronically signed by: Quincy Morton M.D. 12/03/2021 8:23 AM
[2021-12-03] MEDS: MIDODRINE HCL 2.5 MG TAB PO SCH ×3 (09:11→16:45)
[2021-12-03] MEDS: ASCORBIC ACID 500 MG TAB PO SCH (09:13)
[2021-12-03] MEDS: dexAMETHasone 5 MG in SYRINGE 0 ML IV SCH (09:14)
[2021-12-03] MEDS: ZINC SULFATE 220 MG CAPSULE PO SCH (09:15)
[2021-12-03] MEDS: DOCUSATE SODIUM SYRUP 100 MG/10 ML UDC PO SCH ×2 (09:15→20:53)
[2021-12-03] MEDS: PANTOprazole 40 MG in SYRINGE 0 ML IV SCH (09:15)
[2021-12-03] MEDS ORDERED: STAT IV Infusion **Titration per Protocol STA (09:30)
[2021-12-03] MEDS ORDERED: POT PHOSPHATE MONOBASIC W/ SOD TAB PO SCH (11:00)
[2021-12-03] MEDS: clonazePAM 0.5 MG TAB PO SCH ×2 (11:43→20:53)
[2021-12-03] MEDS: DEXMEDETOMIDINE HCL 200 MCG in SODIUM CHLORIDE 0.9% 48 ML IV SCH ×3 (11:43→21:57)
[2021-12-03] MEDS: ENOXAPARIN 80 MG/0.8 ML SYR SQ SCH (11:44)
[2021-12-03] MEDS: CEFEPIME 2,000 MG in SYRINGE 0 ML IV SCH ×2 (11:44→21:56)
--- NOTE | 2021-12-03 11:55 | Pharmacy Report ---
Pharmacy Glycemic Short Note 2 - Date of Service December 03, 2021 - Glycemic Short BSG Results (Last 24 hours): 12/02/21 12/02/21 12/02/21 16:13 20:12 23:47 Glucose POC Glucose 181 H 147 H 137 H 12/03/21 12/03/21 12/03/21 03:19 04:22 08:01 Glucose 148 H POC Glucose 148 H 175 H OUTPATIENT ANTIDIABETIC REGIMEN: * n/a * A1c 6.0% ASSESSMENT: 12/03: * BSGs again fairly well controlled over last 24 hrs. Only a few BSGs in the 150-190s range following AM dexamethasone provision * He remains on Phenylephrine, however rates are lower this AM vs yesterday. IV steroid dose will decrease further tomorrow (down to 2.5mg dexamethasone daily). 12/01: * BSGs fairly well controlled over last 24 hrs despite receipt of pressors, continuous tube feeds, and IV steroids. * Today patients sedation regimen has been changed, norepi is being converted to phenylephrine, and dexamethasone dose is dropping 33% to 5mg IV daily * Will mix pressor in NSS to avoid high rates of D5W provision as base solution 11/28: * BSGs again well controlled over last 24 hrs. 5 units SQ insulin given in last 24 hrs to cover carbs in continuous tube feeds. * Patient remains on vent s/p trach, tube feeds are running at 50cc/hr (Peptamen [facility]), pressors have been weaned off and IV dexamethasone dose reduced 25% today. * No need for addition of basal insulin given current BSG pattern. May be able to wean Novolog doses down with each step down in steroid dose. Pt has no prior h/o DM and A1c only consistent w/ "pre-DM" PLAN FOR INPATIENT GLYCEMIC CONTROL: * Lantus 5 units SQ x 1 today - reassess needs daily * NovoLog per scale Q4hrs * Goal range 110-140 mg/dl * CF = 25 mg/dl/unit * CR = 8g/unit
[2021-12-03] MEDS ORDERED: INSULIN GLARGINE SOLOSTAR 100 UNITS/ML 3 ML PEN SC ONE (12:00)
[2021-12-03] MEDS: PEPTAMEN 1.5 CAL 1,000 ML BAG NG SCH (14:29)
--- NOTE | 2021-12-03 17:00 | Critical Care Progress Note ---
Date of Service December 03, 2021 Assessment & Plan (1) Acute hypoxemic respiratory failure due to COVID-19: (2) 2019 novel coronavirus-infected pneumonia (NCIP): (3) Factor V Leiden carrier: (4) Pneumomediastinum: Plan: CT chest 11/19/2021 personally reviewed: Diffuse patchy opacities appreciated bilaterally upper and lower lobes I do think there is a component of fibrosis to certain degree Bilateral pleural effusion small No significant mediastinal lymphadenopathy Neuro: Sedation: Clonazepam 1 mg twice daily --> On hold 12/02/2021 -Seroquel increased to 50 mg BID --> on hold 12/02/2021 -Precedex discontinued 12/01/2021 Analgesia: Oxycodone taper --> on hold Cardiovascular: Hypotension: -Levophed changed to phenylephrine 12/01/2021 -Continue with midodrine 5 mg 3 times daily Respiratory: -- VDRF --> s/p trach 11/26/1943 Likely secondary toAcute hypoxic respiratory failure Secondary to multilobar COVID-19 pneumonia Patient has very poor compliance. Continue with ventilatory support Intubation 11/20 Tracheostomy 11/26 COVID-19 + 11/03/2021 No central PE on CTA 11/19/2021 Patient was started on late DEXA ARDS protocol -Transition from 10 mg daily to 7.5 mg x 3 days then 5 mg x 3 days then 2.5 mg x 3 days then stop Patient is not a candidate for ECMO Renal: -- FRANDY Monitor BUN/creatinine Avoid nephrotoxic medications Strict ins and outs --Constipationresolved 11/29 --Pulmonary hypertension Type III likely from pulmonary fibrosis likely developing from COVID-19 pneumonia --Pneumomediastinum Small ID: --Febrile illness -Blood cultures 11/27 no growth to date -UA largely unremarkable -Vaughn out 11/28 transition to [facility] -Sputum culture 12/01/2021 Heme: --History of factor Leiden deficiency Therapeutic Lovenox --Prophylaxis VTE: Lovenox therapeutic GI: Protonix once daily Lines:Left IJ discontinued 11/28, right radial 11/28 Diet: Tube feeds Plan: In/out: Positive for 7, urine output 2400 AB.31/66/65 mode 65%, PEEP of 8 No significant change of the chest x-ray compared to before. Hypophosphatemia being replaced. Patient's mental status is still not good he did get Ativan overnight. I would hold all his medications including Seroquel oxycodone. To see if he will. If he does get severely tachypneic and restless Precedex can be added as it was very short lived If there is no improvement even without analgesics and antipsychotics in the next 8-12 hours then MRI of the brain could be thought of Patient's [phone] I have personally spent 36 minutes of critical care time in the direct management of this patient. This is a life/limb threatening event. This includes time spent evaluating patient, direct bedside care, chart review, placing orders, interpretation of diagnostic studies, discussion with consultants, patient, and family members, as well as other required patient management activities. This time is exclusive of all separately billable procedures, and teaching time and separate from and in addition to any other critical care service time. Please note the above document was generated using voice recognition software. It may contain grammatical, syntax or spelling errors. Admission and Anticipated Discharge Date Admission Date: November 03, 2021 Subjective Patient seen and examined at bedside. No acute distress Patient got 2 doses of Ativan overnight for tachypnea and restlessness The last level at 4 AM. At the time of examination he unfortunately was not following commands He has been tachycardic in the 130s He was breathing in the mid 30s. Still spiking low-grade fever. As per the nurse patient was following simple commands earlier but not when I examined him Review of Systems Review of Systems: Unobtainable due to reduced consciousness Physical Exam Physical Exam: Constitutional: No acute distress HEENT: PERRLA,malar rash, positive trach Respiratory system:Decreased air entry bilaterally, no wheeze, rhonchi, positive crackles bilaterally CVS: S1-S2 positive, no murmurs or gallops Abdomen: Soft, nontender, nondistended, positive bowel sounds x4 Extremities: +2 pulses bilaterally radialis/ dorsalis pedis,no cyanosis, +1 edema LLE Neuro:Breathing over the vent Psych:Unable to assess G/U: [place] Vaughn Skin: no rashes, warm and dry Lymphatic: no cervical or axillary lymphadenopathy Results & Data Results & Data ([facility]) Vital Signs (Past 12 Hours) Vital Signs Temp Pulse Resp BP Pulse Ox 12/03/21 15:14 135 H 29 H 92 12/03/21 14:45 38.3 C H 131 H 43 H 126/66 89 L 12/03/21 14:30 38.4 C H 128 H 40 H 89 L 12/03/21 14:15 38.3 C H 132 H 42 H 114/66 87 L 12/03/21 14:00 38.3 C H 130 H 43 H 89 L 12/03/21 13:30 38.3 C H 132 H 42 H 87 L 12/03/21 13:15 38.3 C H 135 H 40 H 113/63 87 L 12/03/21 13:00 38.2 C H 137 H 37 H 114/61 12/03/21 12:45 38.2 C H 134 H 42 H 127/67 87 L 12/03/21 12:30 38.1 C H 135 H 40 H 122/64 89 L 12/03/21 12:00 38.0 C H 135 H 41 H 115/66 90 12/03/21 11:45 38.0 C H 129 H 41 H 116/63 90 12/03/21 11:43 126 H 35 H 89 L 12/03/21 11:30 37.9 C H 128 H 41 H 114/65 12/03/21 11:15 37.9 C H 117 H 38 H 122/64 89 L 12/03/21 11:00 37.8 C H 123 H 35 H 123/67 90 12/03/21 10:45 37.9 C H 126 H 28 H 107/58 L 89 L 12/03/21 10:30 38.0 C H 124 H 39 H 115/58 L 12/03/21 10:15 38.2 C H 117 H 32 H 108/55 L 12/03/21 10:00 38.3 C H 122 H 34 H 99/57 L 88 L 12/03/21 09:45 38.2 C H 129 H 33 H 90/51 L 12/03/21 09:30 38.1 C H 131 H 29 H 118/85 88 L 12/03/21 09:15 38.0 C H 126 H 43 H 123/68 89 L 12/03/21 09:00 38.0 C H 133 H 40 H 107/63 95 12/03/21 08:45 37.9 C H 124 H 28 H 100/53 L 12/03/21 08:30 37.8 C H 131 H 37 H 93 12/03/21 08:19 130 H 35 H 92 12/03/21 08:15 37.7 C H 124 H 29 H 88/53 L 91 12/03/21 08:00 37.6 C H 124 H 22 101/55 L 12/03/21 07:45 37.5 C 128 H 32 H 105/61 92 12/03/21 07:30 37.5 C 125 H 33 H 115/70 90 12/03/21 07:15 37.5 C 125 H 33 H 129/69 90 12/03/21 07:00 37.4 C 122 H 30 H 134/64 92 12/03/21 05:45 37.6 C H 118 H 28 H 113/60 92 12/03/21 05:30 37.6 C H 118 H 31 H 120/59 L 91 12/03/21 05:15 37.7 C H 117 H 29 H 132/62 91 12/03/21 05:00 37.7 C H 122 H 29 H 123/60 92 Laboratory Results 12/03/21 04:22 12/03/21 04:22 Coding Level of Care Code Critical Care 1st 30-74 mins Diagnoses Acute hypoxemic respiratory failure due to COVID-19 U07.1; J96.01 2019 novel coronavirus-infected pneumonia (NCIP) U07.1; J12.82 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 Time Spent (min) 36
--- NOTE | 2021-12-03 18:41 | Hospitalist Progress Note ---
Date of Service December 03, 2021 delayed entry date of service noted above Assessment & Plan (1) COVID-19: Plan: per Dr. Dover's notes with addendum: Acute hypoxic respiratory failure due to COVID-19 pneumonia Tested positive to COVID 19 on 10/27/21 Initially completed course of remdesivir and dexamethasone Did not meet criteria for baricitinib as patient was already admitted for more than 72 hours Acute worsening respiratory status CT PE did not show any PE but showed progression of bilateral opacities, small amount of pneumomediastinum and small bilateral pleural effusion. Concern for firbrosis per crit team. Had previously completed cefepime and doxycycline. Intubated on 11/20/21 --> 11/26/2021 tracheostomy status, on mechanical ventilation being managed per critical care team. Per prior attending: On 11/20/21, I called [facility] and spoke with Dr. Samson. We discussed patient. Unfortunately, patient is not an ECMO candidate MRSA swab is negative 1/5 FIO2 60% further vent management per Powerplant Operator Late DEXA ARDS protocol not responding to verbal/tactile stimuli received ativan overnight off Seroquel, Oxycodone monitor closely Febrile illness: Sputum culture: pending Blood culture: negative Hx DVT, Factor V Leiden therapeutic lovenox Dyslipidemia Plan to resume Atorvastatin on dc Disposition ICU (2) Nausea vomiting and diarrhea: Admission and Anticipated Discharge Date Admission Date: November 03, 2021 Subjective ff up for hypoxic respiratory failure, covid 19 PNA, etc trach in place received Ativan overnight lethargic does not open eyes to verbal command not in distress, no signs of pain afebrile no other issues Review of Systems Review of Systems: Unobtainable due to endotracheal tube and Unobtainable due to reduced consciousness Physical Exam Physical Exam: General- lethargic, breathing with no effort or accessory muscle use Eyes- anicteric Neck- no JVD trach in place: no bleeding, discharge Lungs- clear BS BL no rales/wheezing Heart- normal rate, regular rhythm; no murmurs Abdomen- normal bowel sounds, nondistended, soft Extremities- no pretibial edema, no calf tenderness Neuro-lethargic Skin- warm & dry Results & Data Results & Data ([facility]) Vital Signs (Past 12 Hours) Vital Signs Temp Pulse Resp BP Pulse Ox 12/03/21 18:15 38.2 C H 122 H 33 H 129/66 12/03/21 18:00 38.1 C H 119 H 37 H 138/71 92 12/03/21 17:30 38.0 C H 121 H 33 H 115/70 90 12/03/21 17:15 38.0 C H 122 H 39 H 104/60 89 L 12/03/21 17:00 38.0 C H 124 H 36 H 88 L 12/03/21 16:30 38.1 C H 126 H 33 H 12/03/21 16:00 38.2 C H 128 H 44 H 122/60 87 L 12/03/21 15:30 38.3 C H 132 H 23 112/60 87 L 12/03/21 15:15 38.3 C H 134 H 30 H 119/65 86 L 12/03/21 15:14 135 H 29 H 92 12/03/21 15:00 38.3 C H 133 H 34 H 121/62 12/03/21 14:45 38.3 C H 131 H 43 H 126/66 89 L 12/03/21 14:30 38.4 C H 128 H 40 H 89 L 12/03/21 14:15 38.3 C H 132 H 42 H 114/66 87 L 12/03/21 14:00 38.3 C H 130 H 43 H 89 L 12/03/21 13:30 38.3 C H 132 H 42 H 87 L 12/03/21 13:15 38.3 C H 135 H 40 H 113/63 87 L 12/03/21 13:00 38.2 C H 137 H 37 H 114/61 12/03/21 12:45 38.2 C H 134 H 42 H 127/67 87 L 12/03/21 12:30 38.1 C H 135 H 40 H 122/64 89 L 12/03/21 12:00 38.0 C H 135 H 41 H 115/66 90 12/03/21 11:45 38.0 C H 129 H 41 H 116/63 90 12/03/21 11:43 126 H 35 H 89 L 12/03/21 11:30 37.9 C H 128 H 41 H 114/65 12/03/21 11:15 37.9 C H 117 H 38 H 122/64 89 L 12/03/21 11:00 37.8 C H 123 H 35 H 123/67 90 12/03/21 10:45 37.9 C H 126 H 28 H 107/58 L 89 L 12/03/21 10:30 38.0 C H 124 H 39 H 115/58 L 12/03/21 10:15 38.2 C H 117 H 32 H 108/55 L 12/03/21 10:00 38.3 C H 122 H 34 H 99/57 L 88 L 12/03/21 09:45 38.2 C H 129 H 33 H 90/51 L 12/03/21 09:30 38.1 C H 131 H 29 H 118/85 88 L 12/03/21 09:15 38.0 C H 126 H 43 H 123/68 89 L 12/03/21 09:00 38.0 C H 133 H 40 H 107/63 95 12/03/21 08:45 37.9 C H 124 H 28 H 100/53 L 12/03/21 08:30 37.8 C H 131 H 37 H 93 12/03/21 08:19 130 H 35 H 92 12/03/21 08:15 37.7 C H 124 H 29 H 88/53 L 91 12/03/21 08:00 37.6 C H 124 H 22 101/55 L 12/03/21 07:45 37.5 C 128 H 32 H 105/61 92 12/03/21 07:30 37.5 C 125 H 33 H 115/70 90 12/03/21 07:15 37.5 C 125 H 33 H 129/69 90 12/03/21 07:00 37.4 C 122 H 30 H 134/64 92 all noted and reviewed including below
[2021-12-04] MEDS: INSULIN ASPART PER UNIT SC SCH ×6 (00:01→20:37)
[2021-12-04] MEDS: TUBE FEEDING WATER FLUSH OG SCH ×7 (02:27→22:24)
[2021-12-04] MEDS: DEXMEDETOMIDINE HCL 200 MCG in SODIUM CHLORIDE 0.9% 48 ML IV SCH ×3 (03:43→14:49)
[2021-12-04 05:46] LABS: iSTAT Allen Test Pass; iSTAT Arterial Blood Gas HCO3 36 meg/L (19-24); iSTAT Arterial Blood Gas pCO2 100 mmHg (35-46); iSTAT Arterial Blood Gas pH 7.16 (7.35-7.45); iSTAT Arterial Blood Gas pO2 90 mmHg (80-95); iSTAT Carbon Dioxide 38 mmol/L (24-31); iSTAT Site R Radial
--- NOTE | 2021-12-04 07:40 | XRay Report ---
XR chest 1V portable HISTORY: 56 years-old Male Difficulty ventilating. Acute shortness of breath COMPARISON: Chest radiograph 12/03/2021 TECHNIQUE: Portable AP view of the chest FINDINGS: Cardiac silhouette is enlarged. Tracheostomy cannula overlies the midline at the level the clavicular heads. Enteric tube courses below the diaphragm with distal tip outside the field of view. There is moderate gaseous distention of the stomach. There is no pneumothorax. Probable trace pleural effusion s. Extensive bilateral airspace opacities appear generally stable. Degenerative changes of the should ers and spine. Cortical thickening of the proximal humeral diaphysis is suggestive of a healed fractu re deformity. IMPRESSION: 1. Stable positioning of the tracheostomy cannula and enteric tube. 2. Extensive bilateral airspace opacities suggestive of multifocal pneumonia appears stable from prio r. 3. No pneumothorax. ACT 112: Negative or not required by law. The above report was generated using voice recognition software. It may contain grammatical, syntax o r spelling errors. Electronically signed by: Harjeet Styles M.D. 12/04/2021 7:39 AM
[2021-12-04] MEDS: MIDODRINE HCL 2.5 MG TAB PO SCH ×3 (08:03→16:57)
[2021-12-04] MEDS: ASCORBIC ACID 500 MG TAB PO SCH (08:03)
[2021-12-04] MEDS: DOCUSATE SODIUM SYRUP 100 MG/10 ML UDC PO SCH ×2 (08:03→20:38)
[2021-12-04] MEDS: ZINC SULFATE 220 MG CAPSULE PO SCH (08:03)
[2021-12-04] MEDS: PANTOprazole 40 MG in SYRINGE 0 ML IV SCH (08:05)
[2021-12-04] MEDS: clonazePAM 0.5 MG TAB PO SCH ×2 (08:05→20:39)
[2021-12-04] MEDS: DEXAMETHASONE IV SCH (08:06)
[2021-12-04 10:30] LABS: iSTAT Allen Test Pass; iSTAT Art Bld Gas pCO2 Correct 103 mmHg (35-46); iSTAT Art Bld Gas pH Corrected 7.176 (7.35-7.45); iSTAT Arterial Blood Gas HCO3 38 meg/L (19-24); iSTAT Arterial Blood Gas pCO2 100 mmHg (35-46); iSTAT Arterial Blood Gas pH 7.18 (7.35-7.45); iSTAT Arterial Blood Gas pO2 85 mmHg (80-95); iSTAT Arterial Blood Gas pO2 C 89; iSTAT Carbon Dioxide > 40 mmol/L (24-31); iSTAT Hematocrit 34 % (42-52); iSTAT Hemoglobin 11.6 g/dl (14.0-18.0); iSTAT Potassium 4.5 mmol/L (3.3-5.0); iSTAT Site R Radial; iSTAT Sodium 144 mmol/L (135-144)
[2021-12-04 10:49] LABS: BUN Creatinine Ratio 55.6 (10-20); Calcium 9.5 mg/dl (8.5-10.1); Creatinine Clr Calc Pharmacy 64.4 ml/min; Est GFR (Non-African American) 65.6 ml/min; Magnesium 2.4 mg/dl (1.8-2.4); Potassium 4.4 mmol/L (3.5-5.1)
[2021-12-04 11:03] LABS: Phosphorus 3.1 mg/dl (2.5-4.9)
--- NOTE | 2021-12-04 11:31 | Pharmacy Report ---
Pharmacy Glycemic Short Note 2 - Date of Service December 04, 2021 - Glycemic Short BSG Results (Last 24 hours): 12/03/21 12/03/21 12/03/21 11:51 16:46 19:54 Glucose POC Glucose 167 H 154 H 140 H 12/03/21 12/04/21 12/04/21 23:56 03:38 07:57 Glucose POC Glucose 156 H 143 H 149 H 12/04/21 09:49 Glucose 175 H POC Glucose OUTPATIENT ANTIDIABETIC REGIMEN: * n/a * A1c 6.0% ASSESSMENT: 12/04: * BSGs at goal over last 24 hrs. Steroid dose decreased to 2.5mg dexamethasone IV daily this AM. Tube feeds were changed yesterday and have been titrated to goal. Carb content of tube feeds are higher however Novolog Q 4 hrs appears to be adequately controlling. Phenylephrine has been titrated off. Will withhold basal insulin today given step down in steroid, but continue current Novolog doses. 12/03: * BSGs again fairly well controlled over last 24 hrs. Only a few BSGs in the 150-190s range following AM dexamethasone provision * He remains on Phenylephrine, however rates are lower this AM vs yesterday. IV steroid dose will decrease further tomorrow (down to 2.5mg dexamethasone daily). 12/01: * BSGs fairly well controlled over last 24 hrs despite receipt of pressors, c ontinuous tube feeds, and IV steroids. * Today patients sedation regimen has been changed, norepi is being converted to phenylephrine, and dexamethasone dose is dropping 33% to 5mg IV daily * Will mix pressor in NSS to avoid high rates of D5W provision as base solution 11/28: * BSGs again well controlled over last 24 hrs. 5 units SQ insulin given in last 24 hrs to cover carbs in continuous tube feeds. * Patient remains on vent s/p trach, tube feeds are running at 50cc/hr (Peptamen [facility]), pressors have been weaned off and IV dexamethasone dose reduced 25% today. * No need for addition of basal insulin given current BSG pattern. May be able to wean Novolog doses down with each step down in steroid dose. Pt has no prior h/o DM and A1c only consistent w/ "pre-DM" PLAN FOR INPATIENT GLYCEMIC CONTROL: * Basal: * none at this time - monitor on lesser dose of steroid * NovoLog per scale Q4hrs * Goal range 110-140 mg/dl * CF = 25 mg/dl/unit * CR = 8g/unit
[2021-12-04] MEDS: ENOXAPARIN 80 MG/0.8 ML SYR SQ SCH ×2 (14:52)
--- NOTE | 2021-12-04 18:45 | Critical Care Progress Note ---
Date of Service December 04, 2021 Assessment & Plan (1) Acute hypoxemic respiratory failure due to COVID-19: (2) 2019 novel coronavirus-infected pneumonia (NCIP): (3) Factor V Leiden carrier: (4) Pneumomediastinum: Plan: CT chest 11/19/2021 personally reviewed: Diffuse patchy opacities appreciated bilaterally upper and lower lobes I do think there is a component of fibrosis to certain degree Bilateral pleural effusion small No significant mediastinal lymphadenopathy Neuro: Sedation: Clonazepam 1 mg twice daily --> On hold 12/02/2021 -Seroquel increased to 50 mg BID --> on hold 12/02/2021 -Precedex discontinued 12/01/2021 Analgesia: Oxycodone taper --> on hold Cardiovascular: Hypotension: -Levophed changed to phenylephrine 12/01/2021 -Continue with midodrine 5 mg 3 times daily Respiratory: -- VDRF --> s/p trach 11/26/1943 Likely secondary toAcute hypoxic respiratory failure Secondary to multilobar COVID-19 pneumonia Patient has very poor compliance. Continue with ventilatory support Intubation 11/20 Tracheostomy 11/26 COVID-19 + 11/03/2021 No central PE on CTA 11/19/2021 Patient was started on late DEXA ARDS protocol -Transition from 10 mg daily to 7.5 mg x 3 days then 5 mg x 3 days then 2.5 mg x 3 days then stop Patient is not a candidate for ECMO Renal: -- FRANDY Monitor BUN/creatinine Avoid nephrotoxic medications Strict ins and outs --Constipationresolved 11/29 --Pulmonary hypertension Type III likely from pulmonary fibrosis likely developing from COVID-19 pneumonia --Pneumomediastinum Small ID: --Febrile illness -Blood cultures 11/27 no growth to date -UA largely unremarkable -Vaughn out 11/28 transition to [facility] -Sputum culture 12/01/2021 Heme: --History of factor Leiden deficiency Therapeutic Lovenox --Prophylaxis VTE: Lovenox therapeutic GI: Protonix once daily Lines:Left IJ discontinued 11/28, right radial 11/28 Diet: Tube feeds Plan: In/out: -520, urine output 1525 AB.16/100/90 Patient is having significant leak from the trach. I did try to increase the tidal volume but unfortunately did not compensate for the leak. I will change the trach to an XLT distal Chest x-ray no change compared to before. Patient has been off all the sedation for more than 24 hours but unfortunately is not that responsive. He occasionally opens his eyes but does not follow commands. Overall prognosis is poor. Patient's [phone] I have personally spent 37 minutes of critical care time in the direct manag ement of this patient. This is a life/limb threatening event. This includes time spent evaluating p atient, direct bedside care, chart review, placing orders, interpretation of diagnostic studies, discussion with consultants, patient, and family members, as well as other required patient management activities. This time is exclusive of all separately billable procedures, and teaching time and separate from and in addition to any other critical care service time. Please note the above document was generated using voice recognition software. It may contain grammatical, syntax or spelling errors. Admission and Anticipated Discharge Date Admission Date: November 03, 2021 Review of Systems Review of Systems: Unobtainable due to reduced consciousness Physical Exam Physical Exam: Constitutional: No acute distress HEENT: PERRLA,malar rash, positive trach Respiratory system:Decreased air entry bilaterally, no wheeze, rhonchi, positive crackles bilaterally CVS: S1-S2 positive, no murmurs or gallops Abdomen: Soft, nontender, nondistended, positive bowel sounds x4 Extremities: +2 pulses bilaterally radialis/ dorsalis pedis,no cyanosis, +2 edema LLE Neuro:Breathing over the vent Psych:Unable to assess G/U: [place] Skin: no rashes, warm and dry Lymphatic: no cervical or axillary lymphadenopathy Results & Data Results & Data ([facility]) Vital Signs (Past 12 Hours) Vital Signs Temp Pulse Resp BP Pulse Ox 12/04/21 18:20 37.5 C 121 H 26 H 80/51 L 99 12/04/21 18:15 37.5 C 123 H 26 H 79/46 L 97 12/04/21 18:00 37.4 C 120 H 26 H 73/49 L 98 12/04/21 17:45 37.3 C 126 H 23 75/48 L 98 12/04/21 17:30 37.2 C 132 H 29 H 108/57 L 96 12/04/21 17:15 37.4 C 118 H 32 H 116/63 94 12/04/21 17:00 37.4 C 103 H 32 H 98/58 L 92 12/04/21 16:45 37.4 C 112 H 39 H 117/56 L 93 12/04/21 16:30 37.4 C 122 H 34 H 116/53 L 94 12/04/21 16:15 37.4 C 110 H 35 H 110/60 93 12/04/21 16:00 37.4 C 111 H 39 H 118/57 L 94 12/04/21 15:45 37.4 C 109 H 33 H 102/49 L 92 12/04/21 15:30 37.4 C 123 H 35 H 114/53 L 93 12/04/21 15:15 37.4 C 110 H 33 H 96/49 L 93 12/04/21 15:00 37.3 C 119 H 36 H 105/57 L 93 12/04/21 14:45 37.3 C 120 H 37 H 118/52 L 93 12/04/21 14:30 37.3 C 116 H 36 H 114/57 L 93 12/04/21 14:15 37.3 C 116 H 28 H 107/53 L 93 12/04/21 14:00 37.3 C 112 H 29 H 99/50 L 94 12/04/21 13:45 37.3 C 117 H 36 H 108/57 L 93 12/04/21 13:30 37.3 C 119 H 35 H 103/55 L 93 12/04/21 13:15 37.3 C 108 H 35 H 103/54 L 93 12/04/21 13:00 37.3 C 109 H 34 H 109/54 L 93 12/04/21 12:45 37.3 C 113 H 33 H 98/56 L 92 12/04/21 12:30 37.3 C 121 H 35 H 109/55 L 92 12/04/21 11:30 37.3 C 109 H 33 H 104/53 L 91 12/04/21 11:15 37.3 C 113 H 34 H 112/59 L 94 12/04/21 11:00 37.4 C 113 H 32 H 106/52 L 91 12/04/21 10:45 37.4 C 116 H 34 H 125/61 93 12/04/21 10:30 37.5 C 99 H 35 H 111/55 L 92 12/04/21 10:15 37.6 C H 103 H 31 H 100/55 L 92 12/04/21 10:00 37.6 C H 113 H 35 H 99/55 L 92 12/04/21 09:45 37.7 C H 118 H 37 H 113/61 93 12/04/21 09:30 37.7 C H 116 H 33 H 98/50 L 92 12/04/21 09:15 37.8 C H 108 H 37 H 104/54 L 91 12/04/21 09:00 37.8 C H 116 H 36 H 121/60 93 12/04/21 08:45 37.8 C H 129 H 34 H 88/55 L 93 12/04/21 08:30 37.9 C H 123 H 33 H 107/58 L 92 12/04/21 08:15 37.9 C H 125 H 16 89/50 L 95 12/04/21 08:10 104 H 31 H 93 12/04/21 08:00 37.9 C H 127 H 36 H 117/58 L 92 12/04/21 07:45 37.9 C H 126 H 38 H 107/63 91 12/04/21 07:30 38.0 C H 126 H 34 H 111/60 91 12/04/21 07:00 38.0 C H 126 H 39 H 116/66 92 12/04/21 06:45 38.0 C H 127 H 38 H 109/68 92 Laboratory Results 12/03/21 04:22 12/04/21 09:49 Coding Level of Care Code Critical Care 1st 30-74 mins Diagnoses Acute hypoxemic respiratory failure due to COVID-19 U07.1; J96.01 2019 novel coronavirus-infected pneumonia (NCIP) U07.1; J12.82 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 Time Spent (min) 37
--- NOTE | 2021-12-04 18:48 | Procedure Note ---
Procedure Note Date of Service December 04, 2021 Note Procedure: Tracheostomy change Log Sorter: Dr. Sabino Puente Indication: Trach dependent respiratory failure Consent: Verbal consent obtained from the Anesthesia: 1% lidocaine jelly topical Procedure: Patient was placed in a supine position. The tracheostomy was suctioned first. Clear secretions were appreciated. The inner cannula was then removed from the tracheostomy. Size 6 cuffed nonfenestrated trach was changed to Size 6 XLT D cuffed nonfenestrated trach smoothly over a bougie. Trach Shiley was inserted without any difficulty. No bleeding was appreciated postprocedure. Good expiratory flow appreciated from the trach. A soft trach collar was then connected to the tracheostomy to make sure it is in place. The patient appeared comfortable and vital signs were stable all throughout the procedure. Complications: None Coding CPT Codes Pulmonary/Thoracic - Pulmonary and Thoracic: 45741 Tracheotomy tube change ([id number]) [facility] [place] Procedure Codes (Charges) Pulmonary/Thoracic Procedure 1: Pulmonary and Thoracic: 07305 Tracheotomy tube change
--- NOTE | 2021-12-04 21:07 | Hospitalist Progress Note ---
Date of Service December 04, 2021 Assessment & Plan (1) COVID-19: Plan: per Dr. Dover's notes with addendum: Acute hypoxic respiratory failure due to COVID-19 pneumonia Tested positive to COVID 19 on 10/27/21 Initially completed course of remdesivir and dexamethasone Did not meet criteria for baricitinib as patient was already admitted for more than 72 hours Acute worsening respiratory status CT PE did not show any PE but showed progression of bilateral opacities, small amount of pneumomediastinum and small bilateral pleural effusion. Concern for firbrosis per crit team. Had previously completed cefepime and doxycycline. Intubated on 11/20/21 --> 11/26/2021 tracheostomy status, on mechanical ventilation being managed per critical care team. Per prior attending: On 11/20/21, I called [facility] and spoke with Dr. Samson. We discussed patient. Unfortunately, patient is not an ECMO candidate MRSA swab is negative Patient on late DEXA ARDS protocol. Chlorination Operator on board managing vent and sedation 12/01 sputum Cx - NG, final results to follow, off of precedex, still requiring high FiO2 (60%) Pt not responding at bedside exam, plan to stop clonazepam/oxycodone/seroquel and see if responds. Pt off of precredex today. 12/04/21 s/p trach replacement on dexamethasone continue to monitor closely on MIdodrine Febrile illness: 11/27 blood culture no growth so far, urinary catheter removed, CT chest abdomen and pelvis sent 11/29/21 s/o worsening GGO w/ small pleural eff. and nonspecific enteritis of distal ileum. Patient started on cefepime 11/29 for ?Pul Infection. Sputum Cx sent 12/01. . off antibiotics Hx DVT, Factor V Leiden Has mild edema of the left lower extremity, chronic per patient Doppler ultrasound done during this admission: nonocclusive thrombus present within the common femoral vein and the proximal to mid superficial femoral vein- chronic per Radiologist Coumadin on hold Heparin changed to therapeutic lovenox Dyslipidemia Plan to resume Atorvastatin on dc Disposition ICU Poor prognosis (2) Nausea vomiting and diarrhea: Admission and Anticipated Discharge Date Admission Date: November 03, 2021 Subjective ff up for acute hypoxic respiratory failure, covid 19 pna, etc off sedation lethargic does not open eyes to command not in distress, no pain no other issues noted Review of Systems Review of Systems: Unobtainable due to reduced consciousness Physical Exam Physical Exam: General- lethargic, breathing with no effort or accessory muscle use Eyes- anicteric Neck- no JVD Lungs- (+) rhonchi anteriorly bilaterally Heart- normal rate, regular rhythm; no murmurs Abdomen- normal bowel sounds, nondistended, soft, nontender Extremities- mild extremities edema, no calf tenderness Neuro-sedated Skin- warm & dry Results & Data Results & Data ([facility]) Vital Signs (Past 12 Hours) Vital Signs Temp Pulse Resp BP Pulse Ox 12/04/21 18:20 37.5 C 121 H 26 H 80/51 L 99 12/04/21 18:15 37.5 C 123 H 26 H 79/46 L 97 12/04/21 18:00 37.4 C 120 H 26 H 73/49 L 98 12/04/21 17:45 37.3 C 126 H 23 75/48 L 98 12/04/21 17:30 37.2 C 132 H 29 H 108/57 L 96 12/04/21 17:15 37.4 C 118 H 32 H 116/63 94 12/04/21 17:00 37.4 C 103 H 32 H 98/58 L 92 12/04/21 16:45 37.4 C 112 H 39 H 117/56 L 93 12/04/21 16:30 37.4 C 122 H 34 H 116/53 L 94 12/04/21 16:15 37.4 C 110 H 35 H 110/60 93 12/04/21 16:00 37.4 C 111 H 39 H 118/57 L 94 12/04/21 15:45 37.4 C 109 H 33 H 102/49 L 92 12/04/21 15:30 37.4 C 123 H 35 H 114/53 L 93 12/04/21 15:15 37.4 C 110 H 33 H 96/49 L 93 12/04/21 15:00 37.3 C 119 H 36 H 105/57 L 93 12/04/21 14:45 37.3 C 120 H 37 H 118/52 L 93 12/04/21 14:30 37.3 C 116 H 36 H 114/57 L 93 12/04/21 14:15 37.3 C 116 H 28 H 107/53 L 93 12/04/21 14:00 37.3 C 112 H 29 H 99/50 L 94 12/04/21 13:45 37.3 C 117 H 36 H 108/57 L 93 12/04/21 13:30 37.3 C 119 H 35 H 103/55 L 93 12/04/21 13:15 37.3 C 108 H 35 H 103/54 L 93 12/04/21 13:00 37.3 C 109 H 34 H 109/54 L 93 12/04/21 12:45 37.3 C 113 H 33 H 98/56 L 92 12/04/21 12:30 37.3 C 121 H 35 H 109/55 L 92 12/04/21 11:30 37.3 C 109 H 33 H 104/53 L 91 12/04/21 11:15 37.3 C 113 H 34 H 112/59 L 94 12/04/21 11:00 37.4 C 113 H 32 H 106/52 L 91 12/04/21 10:45 37.4 C 116 H 34 H 125/61 93 12/04/21 10:30 37.5 C 99 H 35 H 111/55 L 92 12/04/21 10:15 37.6 C H 103 H 31 H 100/55 L 92 12/04/21 10:00 37.6 C H 113 H 35 H 99/55 L 92 12/04/21 09:45 37.7 C H 118 H 37 H 113/61 93 12/04/21 09:30 37.7 C H 116 H 33 H 98/50 L 92 12/04/21 09:15 37.8 C H 108 H 37 H 104/54 L 91
[2021-12-04] MEDS: PEPTAMEN 1.5 CAL 1,000 ML BAG NG SCH (21:47)
[2021-12-05] MEDS: ENOXAPARIN 80 MG/0.8 ML SYR SQ SCH ×3 (00:10→23:51)
[2021-12-05] MEDS: DEXMEDETOMIDINE HCL 200 MCG in SODIUM CHLORIDE 0.9% 48 ML IV SCH ×4 (00:11→23:51)
[2021-12-05] MEDS: INSULIN ASPART PER UNIT SC SCH ×7 (00:12→23:55)
[2021-12-05] MEDS: LORazepam 2 MG/4 ML VIAL IV PRN (01:25)
[2021-12-05] MEDS: TUBE FEEDING WATER FLUSH OG SCH ×4 (02:23→23:55)
[2021-12-05 04:56] LABS: Basophils # (auto) 0.05 K/uL (0-0.2); Basophils % (auto) 0.3 %; Eosinophils # (auto) 0.13 K/uL (0-0.5); Eosinophils % (auto) 0.7 %; Hematocrit (blood only) 32.9 % (42-52); Hemoglobin 9.7 g/dL (14.0-18.0); Immature Granulocytes # (auto) 0.28 K/uL (0.00-0.02); Immature Granulocytes % (auto) 1.4 %; Lymphocytes # (auto) 1.86 K/uL (1.2-3.4); Lymphocytes % (auto) 9.4 %; Mean Corpuscular Hgb Conc 29.5 g/dL (32-36); Mean Corpuscular Volume 98.5 fL (80-100); Mean Platelet Volume 10.3 fL (7.4-10.4); Monocytes # (auto) 0.69 K/uL (0.11-0.59); Monocytes % (auto) 3.5 %; Neutrophils # (auto) 16.84 K/uL (1.4-6.5); Neutrophils % (auto) 84.7 %; Platelet Count 374 K/uL (130-400); RDW Coefficient of Variation 15.7 % (11.5-14.5); RDW Standard Deviation 57.4 fL (36.4-46.3); Red Blood Count 3.34 M/uL (4.7-6.1); White Blood Count 19.85 K/uL (4.8-10.8)
[2021-12-05 05:15] LABS: BUN Creatinine Ratio 55.5 (10-20); Calcium 9.3 mg/dl (8.5-10.1); Creatinine Clr Calc Pharmacy 58.6 ml/min; Est GFR (African American) 67.8 ml/min; Est GFR (Non-African American) 58.5 ml/min; Magnesium 2.5 mg/dl (1.8-2.4); Potassium 4.3 mmol/L (3.5-5.1)
[2021-12-05 05:49] LABS: iSTAT Allen Test Pass; iSTAT Arterial Blood Gas HCO3 35 meg/L (19-24); iSTAT Arterial Blood Gas pCO2 61 mmHg (35-46); iSTAT Arterial Blood Gas pH 7.37 (7.35-7.45); iSTAT Arterial Blood Gas pO2 65 mmHg (80-95); iSTAT Carbon Dioxide 37 mmol/L (24-31); iSTAT FiO2 70 %; iSTAT Site R Radial
[2021-12-05 05:52] LABS: Phosphorus 1.4 mg/dl (2.5-4.9)
[2021-12-05] MEDS ORDERED: POTASSIUM PHOS 3 MMOL/1 ML INFUSION IV STA (06:12)
[2021-12-05] MEDS ORDERED: POTASSIUM PHOSPHATE 15 MMOL in SODIUM CHLORIDE 0.9% 250 ML IV ONE (06:45)
--- NOTE | 2021-12-05 07:22 | XRay Report ---
XR chest 1V portable HISTORY: 56 years-old Male f/u follow-up study in a patient with respiratory failure COMPARISON: Chest radiograph 12/04/2021 TECHNIQUE: Portable AP view of the chest FINDINGS: Cardiac silhouette is enlarged. Tracheostomy cannula overlies the midline at the level the clavicular heads. Enteric distal tip of enteric tube projects superiorly within the region of the gastric cardi a. There is decreased gaseous distention of the stomach. There is no pneumothorax. Probable trace ple ural effusions. Extensive bilateral airspace opacities appear generally stable. Degenerative changes of the shoulders and spine. Cortical thickening of the proximal humeral diaphysis is suggestive of a healed fracture deformity. IMPRESSION: 1. Satisfactory positioning of the tracheostomy cannula and feeding tube. 2. Stable extensive bilateral airspace opacities compatible with multifocal pneumonia. ACT 112: Negative or not required by law. The above report was generated using voice recognition software. It may contain grammatical, syntax o r spelling errors. Electronically signed by: Harjeet Styles M.D. 12/05/2021 7:21 AM
[2021-12-05] MEDS: ACETAMINOPHEN 325 MG TAB PO PRN (07:54)
[2021-12-05] MEDS: MIDODRINE HCL 2.5 MG TAB PO SCH ×3 (07:57→18:21)
[2021-12-05] MEDS: DOCUSATE SODIUM SYRUP 100 MG/10 ML UDC PO SCH ×2 (08:14→21:23)
[2021-12-05] MEDS: ASCORBIC ACID 500 MG TAB PO SCH (08:14)
[2021-12-05] MEDS: ZINC SULFATE 220 MG CAPSULE PO SCH (08:14)
[2021-12-05] MEDS: PANTOprazole 40 MG in SYRINGE 0 ML IV SCH (08:16)
[2021-12-05] MEDS: DEXAMETHASONE IV SCH (08:17)
[2021-12-05] MEDS: clonazePAM 0.5 MG TAB PO SCH ×2 (08:18→21:24)
[2021-12-05] MEDS: LANTUS PER UNIT CHARGE SQ SCH (08:19)
[2021-12-05] MEDS ORDERED: LANTUS PER UNIT CHARGE SQ SCH (09:00)
--- NOTE | 2021-12-05 13:06 | Pharmacy Report ---
Pharmacy Glycemic Short Note 2 - Date of Service December 05, 2021 - Glycemic Short BSG Results (Last 24 hours): 12/04/21 12/04/21 12/04/21 14:14 16:53 20:12 Glucose POC Glucose 192 H 197 H 71 12/05/21 12/05/21 12/05/21 00:08 03:29 04:22 Glucose 211 H POC Glucose 159 H 185 H 12/05/21 12/05/21 07:47 11:52 Glucose POC Glucose 205 H 159 H OUTPATIENT ANTIDIABETIC REGIMEN: * n/a * A1c 6.0% ASSESSMENT: 12/05: * BSGs running higher yesterday than prior days. The only notable change identified was a change in tube feeds to Peptamen. Carb ratio was adjusted yesterday to account for rising BSGs however BSG then fell to 70s later in the day. As a result, we returned to a lesser dose of prandial insulin. Looking back on past data and insulin doses, his BSGs tend to be more smoothly controlled when a small dose of Lantus is provided. Will resume low dose Lantus for today and tomorrow. IV dexamethasone set to d/c after tomorrow's dose 12/04: * BSGs at goal over last 24 hrs. Steroid dose decreased to 2.5mg dexamethasone IV daily this AM. Tube feeds were changed yesterday and have been titrated to goal. Carb content of tube feeds are higher however Novolog Q 4 hrs appears to be adequately controlling. Phenylephrine has been titrated off. Will withhold basal insulin today given step down in steroid, but continue current Novolog doses. 12/03: * BSGs again fairly well controlled over last 24 hrs. Only a few BSGs in the 150-190s range following AM dexamethasone provision * He remains on Phenylephrine, however rates are lower this AM vs yesterday. IV steroid dose will decrease further tomorrow (down to 2.5mg dexamethasone daily). 12/01: * BSGs fairly well controlled over last 24 hrs despite receipt of pressors, continuous tube feeds, and IV steroids. * Today patients sedation regimen has been changed, norepi is being converted to phenylephrine, and dexamethasone dose is dropping 33% to 5mg IV daily * Will mix pressor in NSS to avoid high rates of D5W provision as base solution 11/28: * BSGs again well controlled over last 24 hrs. 5 units SQ insulin given in last 24 hrs to cover carbs in continuous tube feeds. * Patient remains on vent s/p trach, tube feeds are running at 50cc/hr (Peptamen [facility]), pressors have been weaned off and IV dexamethasone dose reduced 25% today. * No need for addition of basal insulin given current BSG pattern. May be able to wean Novolog doses down with each step down in steroid dose. Pt has no prior h/o DM and A1c only consistent w/ "pre-DM" PLAN FOR INPATIENT GLYCEMIC CONTROL: * Basal: * Lantus 5 units Q AM x 2 days then dc * NovoLog per scale Q4hrs * Goal range 110-140 mg/dl * CF = 20 mg/dl/unit * CR = 8g/unit
--- NOTE | 2021-12-05 13:40 | Critical Care Progress Note ---
Date of Service December 05, 2021 Assessment & Plan (1) Acute hypoxemic respiratory failure due to COVID-19: (2) 2019 novel coronavirus-infected pneumonia (NCIP): (3) Factor V Leiden carrier: (4) Pneumomediastinum: Plan: CT chest 11/19/2021 personally reviewed: Diffuse patchy opacities appreciated bilaterally upper and lower lobes I do think there is a component of fibrosis to certain degree Bilateral pleural effusion small No significant mediastinal lymphadenopathy Neuro: Sedation: Clonazepam 1 mg twice daily --> On hold 12/02/2021 -Seroquel increased to 50 mg BID --> on hold 12/02/2021 -Precedex discontinued 12/01/2021 Analgesia: Oxycodone taper --> on hold Cardiovascular: S/p hypotension: -Levophed changed to phenylephrine 12/01/2021--> off as of 12/05/2021 -Continue with midodrine 5 mg 3 times daily Respiratory: -- VDRF --> s/p trach 11/26/1943 Likely secondary toAcute hypoxic respiratory failure Secondary to multilobar COVID-19 pneumonia Patient has very poor compliance. Continue with ventilatory support Intubation 11/20 Tracheostomy 11/26 --> tracheostomy changed to 6 XLT D 12/04/2021 COVID-19 + 11/03/2021 No central PE on CTA 11/19/2021 Patient was started on late DEXA ARDS protocol -Transition from 10 mg daily to 7.5 mg x 3 days then 5 mg x 3 days then 2.5 mg x 3 days then stop Patient is not a candidate for ECMO Renal: -- FRANDY Monitor BUN/creatinine Avoid nephrotoxic medications Strict ins and outs --Constipationresolved 11/29 --Pulmonary hypertension Type III likely from pulmonary fibrosis likely developing from COVID-19 pneumonia --Pneumomediastinum Small ID: --Febrile illness -Blood cultures 11/27 no growth to date -UA largely unremarkable -Vaughn out 11/28 transition to [facility] -Sputum culture 12/01/2021 Heme: --History of factor Leiden deficiency Therapeutic Lovenox --Prophylaxis VTE: Lovenox therapeutic GI: Protonix once daily Lines:Left IJ discontinued 11/28, right radial 11/28 Diet: Tube feeds Plan: In/out: -1.1 L, urine output 1525 AB.37/61/65 on 70% PEEP of 6 Hypophosphatemia being replaced. Patient is getting a little bit hyponatremic. 250 mL free water every 6 hours for total of 8 doses. Patient has been off sedating medication for more than 48 hours. He did get a dose of Ativan overnight. He is waking up but not following any commands. We are going to get an MRI of the brain. Patient's [phone] I have personally spent 36 minutes of critical care time in the direct management of this patient. This is a life/limb threatening event. This includes time spent evaluating patient, direct bedside care, chart review, placing orders, interpretation of d iagnostic studies, discussion with consultants, patient, and family members, as well as other required patient management activities. This time is exclusive of all separately billable procedures, and teaching time and separate from and in addition to any other critical care service time. Please note the above document was generated using voice recognition software. It may contain grammatical, syntax or spelling errors. Admission and Anticipated Discharge Date Admission Date: November 03, 2021 Subjective Patient seen and examined at bedside. No acute distress, no delusions overnight S/p tracheostomy change 12/04/2021 He is getting tidal volume better compared to last time. He still spiking fever. He has episodes of tachypnea as well as tachycardia At bedside he does open his eyes to his voice but does not follow commands Review of Systems Review of Systems: Unobtainable due to reduced consciousness Physical Exam Physical Exam: Constitutional: No acute distress HEENT: PERRLA,malar rash, positive trach Respiratory system:Decreased air entry bilaterally, no wheeze, rhonchi, positive crackles bilaterally CVS: S1-S2 positive, no murmurs or gallops Abdomen: Soft, nontender, nondistended, positive bowel sounds x4 Extremities: +2 pulses bilaterally radialis/ dorsalis pedis,no cyanosis, +2 edema LLE Neuro:Breathing over the vent, opens his eyes but does not follow commands Psych:Unable to assess G/U: [facility] Skin: no rashes, warm and dry Lymphatic: no cervical or axillary lymphadenopathy Results & Data Results & Data ([facility]) Vital Signs (Past 12 Hours) Vital Signs Temp Pulse Resp BP Pulse Ox 12/05/21 08:00 38.3 C H 123 H 41 H 104/56 L 93 12/05/21 07:00 38.3 C H 131 H 41 H 94/54 L 94 12/05/21 06:00 38.3 C H 129 H 35 H 90/52 L 94 12/05/21 05:00 38.3 C H 131 H 42 H 90/50 L 93 12/05/21 04:20 131 H 40 H 94 12/05/21 04:00 38.2 C H 132 H 45 H 106/55 L 93 12/05/21 03:00 38.2 C H 121 H 35 H 93/48 L 94 12/05/21 02:00 38.1 C H 123 H 36 H 80/44 L 93 Laboratory Results 12/05/21 04:22 12/05/21 04:22 Coding Level of Care Code Critical Care 1st 30-74 mins Diagnoses Acute hypoxemic respiratory failure due to COVID-19 U07.1; J96.01 2019 novel coronavirus-infected pneumonia (NCIP) U07.1; J12.82 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 Time Spent (min) 36
--- NOTE | 2021-12-05 17:58 | Hospitalist Progress Note ---
Date of Service December 05, 2021 Assessment & Plan (1) COVID-19: Plan: per Dr. Dover's notes with addendum: Acute hypoxic respiratory failure due to COVID-19 pneumonia Tested positive to COVID 19 on 10/27/21 Initially completed course of remdesivir and dexamethasone Did not meet criteria for baricitinib as patient was already admitted for more than 72 hours Acute worsening respiratory status CT PE did not show any PE but showed progression of bilateral opacities, small amount of pneumomediastinum and small bilateral pleural effusion. Concern for firbrosis per crit team. Had previously completed cefepime and doxycycline. Intubated on 11/20/21 --> 11/26/2021 tracheostomy status, on mechanical ventilation being managed per critical care team. Per prior attending: On 11/20/21, I called [facility] and spoke with Dr. Samson. We discussed patient. Unfortunately, patient is not an ECMO candidate MRSA swab is negative Patient on late DEXA ARDS protocol. Pairer Substandard on board managing vent and sedation 12/01 sputum Cx - NG, final results to follow, off of precedex, still requiring high FiO2 (60%) Pt not responding at bedside exam, plan to stop clonazepam/oxycodone/seroquel and see if responds. Pt off of precredex today. 12/05/21 s/p trach replacement on dexamethasone continue to monitor closely on MIdodrine For brain MRI Febrile illness: 11/27 blood culture no growth so far, urinary catheter removed, CT chest abdomen and pelvis sent 11/29/21 s/o worsening GGO w/ small pleural eff. and nonspecific enteritis of distal ileum. Patient started on cefepime 11/29 for ?Pul Infection. Sputum Cx sent 12/01. . off antibiotics Hx DVT, Factor V Leiden Has mild edema of the left lower extremity, chronic per patient Doppler ultrasound done during this admission: nonocclusive thrombus present within the common femoral vein and the proximal to mid superficial femoral vein- chronic per Radiologist Coumadin on hold Heparin changed to therapeutic lovenox Dyslipidemia Plan to resume Atorvastatin on dc Disposition ICU Poor prognosis (2) Nausea vomiting and diarrhea: Admission and Anticipated Discharge Date Admission Date: November 03, 2021 Subjective Follow-up for acute hypoxic respiratory failure, status post tracheostomy, etc. Patient resting in bed Opens eyes when his name is called, but does not follow commands Not in distress, no signs of pain or shortness of breath Brain MRI pending No other issues per assembler utility buildings of Systems Review of Systems: all noted and negative except for above Physical Exam Physical Exam: General-drowsy, breathing with no effort or accessory muscle use Eyes- anicteric Neck- no JVD Trach in place: No bleeding or discharge Lungs-positive rhonchi anteriorly Heart- normal rate, regular rhythm; no murmurs Abdomen- normal bowel sounds, nondistended, soft, nontender Extremities-mild edema of the extremities, no calf tenderness Neuro-lethargic, Skin- warm & dry Results & Data Results & Data ([facility]) Vital Signs (Past 12 Hours) Vital Signs Temp Pulse Resp BP Pulse Ox 12/05/21 15:15 121 H 33 H 93 12/05/21 12:00 29 H 94 12/05/21 11:05 118 H 39 H 92 12/05/21 08:00 38.3 C H 121 H 35 H 104/56 L 92 12/05/21 07:00 38.3 C H 131 H 41 H 94/54 L 94 12/05/21 06:00 38.3 C H 129 H 35 H 90/52 L 94 all noted and reviewed including below
--- NOTE | 2021-12-05 21:12 | Magnetic Resonance Report ---
Brain MRI WITHOUT CONTRAST HISTORY: Altered mental status. TECHNIQUE: Multiplanar multisequence MRI of the brain was performed without the use of contrast. COMPARISON STUDY: Head CT 11/30/2021. FINDINGS: There are no areas of restricted diffusion to suggest acute infarction. The midline structu res are intact. Partial opacities within the bilateral sphenoid sinuses. Large bilateral mastoid effu sions are again noted. The ventricles and sulci are within normal limits for age. There is no mass, h ematoma, midline shift. The major vascular flow-voids at the skull base are well maintained. IMPRESSION: 1. No acute infarct or intracranial hemorrhage. 2. Large bilateral mastoid effusions again noted. ACT 112: Negative or not required by law. Electronically signed by: Bhavesh Becerra M.D. 12/05/2021 9:11 PM
[2021-12-06] MEDS: DEXMEDETOMIDINE HCL 200 MCG in SODIUM CHLORIDE 0.9% 48 ML IV SCH ×4 (01:31→20:50)
[2021-12-06] MEDS: INSULIN ASPART PER UNIT SC SCH ×5 (04:39→20:51)
[2021-12-06 04:59] LABS: iSTAT Allen Test Pass; iSTAT Arterial Blood Gas HCO3 38 meg/L (19-24); iSTAT Arterial Blood Gas pCO2 66 mmHg (35-46); iSTAT Arterial Blood Gas pH 7.37 (7.35-7.45); iSTAT Arterial Blood Gas pO2 94 mmHg (80-95); iSTAT Carbon Dioxide > 40 mmol/L (24-31); iSTAT FiO2 70 %; iSTAT Site R Radial
[2021-12-06] MEDS: TUBE FEEDING WATER FLUSH OG SCH ×3 (05:03→18:05)
[2021-12-06 06:06] LABS: Basophils # (auto) 0.03 K/uL (0-0.2); Basophils % (auto) 0.2 %; Eosinophils # (auto) 0.27 K/uL (0-0.5); Eosinophils % (auto) 1.5 %; Hematocrit (blood only) 31.4 % (42-52); Hemoglobin 9.3 g/dL (14.0-18.0); Immature Granulocytes # (auto) 0.18 K/uL (0.00-0.02); Lymphocytes # (auto) 2.18 K/uL (1.2-3.4); Lymphocytes % (auto) 11.8 %; Mean Corpuscular Hgb Conc 29.6 g/dL (32-36); Mean Corpuscular Volume 97.8 fL (80-100); Mean Platelet Volume 10.3 fL (7.4-10.4); Monocytes # (auto) 0.68 K/uL (0.11-0.59); Monocytes % (auto) 3.7 %; Neutrophils # (auto) 15.11 K/uL (1.4-6.5); Neutrophils % (auto) 81.8 %; Platelet Count 344 K/uL (130-400); RDW Coefficient of Variation 15.8 % (11.5-14.5); Red Blood Count 3.21 M/uL (4.7-6.1); White Blood Count 18.45 K/uL (4.8-10.8)
[2021-12-06 06:21] LABS: BUN Creatinine Ratio 61.9 (10-20); Calcium 8.6 mg/dl (8.5-10.1); Creatinine Clr Calc Pharmacy 72.1 ml/min; Est GFR (African American) 87.2 ml/min; Est GFR (Non-African American) 75.3 ml/min; Magnesium 2.3 mg/dl (1.8-2.4)
[2021-12-06 07:04] LABS: Phosphorus 1.4 mg/dl (2.5-4.9)
[2021-12-06] MEDS ORDERED: POTASSIUM PHOS 3 MMOL/1 ML INFUSION IV STA (08:26)
[2021-12-06] MEDS ORDERED: POTASSIUM PHOSPHATE 21 MMOL in SODIUM CHLORIDE 0.9% 500 ML IV ONE (09:00)
[2021-12-06] MEDS: DEXAMETHASONE IV SCH (09:01)
[2021-12-06] MEDS: PANTOprazole 40 MG in SYRINGE 0 ML IV SCH (09:01)
[2021-12-06] MEDS: DOCUSATE SODIUM SYRUP 100 MG/10 ML UDC PO SCH ×2 (09:03→20:50)
[2021-12-06] MEDS: MIDODRINE HCL 2.5 MG TAB PO SCH ×3 (09:04→16:55)
[2021-12-06] MEDS: ASCORBIC ACID 500 MG TAB PO SCH (09:04)
[2021-12-06] MEDS: ZINC SULFATE 220 MG CAPSULE PO SCH (09:05)
[2021-12-06] MEDS: clonazePAM 0.5 MG TAB PO SCH ×2 (09:07→20:50)
[2021-12-06] MEDS: LANTUS PER UNIT CHARGE SQ SCH (09:09)
[2021-12-06] MEDS: DEXTROSE 5% 1,000 ML IV SCH ×2 (09:28→18:00)
--- NOTE | 2021-12-06 12:15 | XRay Report ---
XR chest 1V portable CLINICAL HISTORY: f/u TECHNIQUE: Single frontal radiograph of the chest was obtained. Comparison: Comparison is made to chest one view 12/05/2021 FINDINGS: Lines and tubes are stable. The cardiomediastinal silhouette is normal. Multifocal airspace opacities are seen. No evidence of pleural effusion or pneumothorax. IMPRESSION: Multifocal airspace opacities compatible with history of viral pneumonia. Overall findings are minima lly less prominent compared to prior exam. ACT 112: Negative or not required by law. Electronically signed by: Quincy Morton M.D. 12/06/2021 12:14 PM
[2021-12-06] MEDS: ENOXAPARIN 80 MG/0.8 ML SYR SQ SCH (12:18)
--- NOTE | 2021-12-06 12:55 | Critical Care Progress Note ---
Date of Service December 06, 2021 Assessment & Plan (1) Acute hypoxemic respiratory failure due to COVID-19: (2) 2019 novel coronavirus-infected pneumonia (NCIP): (3) Factor V Leiden carrier: (4) Pneumomediastinum: Plan: CT chest 11/19/2021 personally reviewed: Diffuse patchy opacities appreciated bilaterally upper and lower lobes I do think there is a component of fibrosis to certain degree Bilateral pleural effusion small No significant mediastinal lymphadenopathy Neuro: Sedation: Clonazepam 0.5 mg twice daily -Seroquel increased to 50 mg BID --> on hold 12/02/2021 -Precedex discontinued 12/01/2021 Analgesia: Oxycodone taper --> on hold MRI brain 12/05/2021:-Negative for any acute abnormality Cardiovascular: S/p hypotension: -Levophed changed to phenylephrine 12/01/2021--> off as of 12/05/2021 -Continue with midodrine 5 mg 3 times daily Respiratory: -- VDRF --> s/p trach 11/26/1943 Likely secondary toAcute hypoxic respiratory failure Secondary to multilobar COVID-19 pneumonia Patient has very poor compliance. Continue with ventilatory support Intubation 11/20 Tracheostomy 11/26 --> tracheostomy changed to 6 XLT D 12/04/2021 COVID-19 + 11/03/2021 No central PE on CTA 11/19/2021 Patient was started on late DEXA ARDS protocol -Transition from 10 mg daily to 7.5 mg x 3 days then 5 mg x 3 days then 2.5 mg x 3 days then stop Patient is not a candidate for ECMO Renal: --Hypernatremia Free water deficit 3.2 L -- FRANDY Improving Monitor BUN/creatinine Avoid nephrotoxic medications Strict ins and outs --Constipationresolved 11/29 --Pulmonary hypertension Type III likely from pulmonary fibrosis likely developing from COVID-19 pneumonia --Pneumomediastinum Resolved ID: --Febrile illness -Blood cultures 11/27 no growth to date -UA largely unremarkable -Vaughn out 11/28 transition to [facility] -Sputum culture 12/01/2021 Heme: --History of factor Leiden deficiency Therapeutic Lovenox --Prophylaxis VTE: Lovenox therapeutic GI: Protonix once daily Lines:Peripherals, lIJ discontinued 11/28, right radial 11/28 Diet: Tube feeds Plan: In/out: - 535, urine output 1800 For hyponatremia we'll give the patient D5 water 125 mils an hour for 12 hours Also give the patient 250 mm free water through the NGT Hypophosphatemia is being replaced MRI of the brain was negative. Patient is waking up. Would continue with low-dose clonazepam and Precedex on an as-needed basis. Patient's respiratory rate unfortunately is still very tachypneic but patient has significant space ventilation because of significant fibrosis of the lung. Patient's [phone] I have personally spent 36 minutes of critical care time in the direct management of this patient. This is a life/limb threatening event. This includes time spent evaluating patient, direct bedside care, chart review, placing orders, interpretation of diagnostic studies, discussion with consultants, patient, and family members, as well as other required patient management activities. This time is exclusive of all separately billable procedures, and teaching time and separate from and in addition to any other critical care service time. Please note the above document was generated using voice recognition software. It may contain grammatical, syntax or spelling errors. Admission and Anticipated Discharge Date Admission Date: November 03, 2021 Subjective Patient seen and examined at bedside. No acute distress, no adverse events overnight. Patient was off sedation. He was more alert and awake compared to the last 2 days. He said no to headache or chest pain. He was able to wiggle his toes. Review of Systems Review of Systems: All systems reviewed & are unremarkable except as noted in Subjective Physical Exam Physical Exam: Constitutional: No acute distress HEENT: PERRLA,malar rash, positive trach Respiratory system:Decreased air entry bilaterally, no wheeze, rhonchi, posit nader crackles bilaterally CVS: S1-S2 positive, no murmurs or gallops Abdomen: Soft, nontender, nondistended, positive bowel sounds x4 Extremities: +2 pulses bilaterally radialis/ dorsalis pedis,no cyanosis, +2 edema LLE, +1 right lower extremity Neuro:Awake and alert, following simple commands Psych:Unable to assess G/U: [place] Skin: no rashes, warm and dry Lymphatic: no cervical or axillary lymphadenopathy Results & Data Results & Data ([facility]) Vital Signs (Past 12 Hours) Vital Signs Temp Pulse Resp BP Pulse Ox 12/06/21 11:35 119 H 41 H 90 12/06/21 11:00 37.6 C H 116 H 30 H 106/57 L 92 12/06/21 10:00 37.6 C H 120 H 41 H 116/64 91 12/06/21 09:00 37.7 C H 106 H 39 H 110/58 L 89 L 12/06/21 08:00 37.6 C H 120 H 45 H 116/57 L 89 L 12/06/21 07:25 116 H 42 H 90 12/06/21 07:00 37.5 C 117 H 37 H 104/57 L 92 12/06/21 06:00 37.6 C H 117 H 39 H 95/51 L 93 12/06/21 05:00 37.6 C H 113 H 28 H 101/54 L 92 12/06/21 04:00 37.4 C 116 H 38 H 109/58 L 90 12/06/21 03:00 37.5 C 117 H 34 H 100/47 L 95 12/06/21 02:58 119 H 31 H 94 12/06/21 02:00 37.5 C 120 H 36 H 101/48 L 93 12/06/21 01:00 37.6 C H 111 H 27 H 104/55 L 95 Laboratory Results 12/06/21 05:51 12/06/21 05:51 Coding Level of Care Code Critical Care 1st 30-74 mins Diagnoses Acute hypoxemic respiratory failure due to COVID-19 U07.1; J96.01 2019 novel coronavirus-infected pneumonia (NCIP) U07.1; J12.82 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 Time Spent (min) 36
--- NOTE | 2021-12-06 15:58 | Hospitalist Progress Note ---
Date of Service December 06, 2021 Assessment & Plan (1) COVID-19: Plan: per Dr. Dover's notes with addendum: Acute hypoxic respiratory failure due to COVID-19 pneumonia Tested positive to COVID 19 on 10/27/21 Initially completed course of remdesivir and dexamethasone Did not meet criteria for baricitinib as patient was already admitted for more than 72 hours Acute worsening respiratory status CT PE did not show any PE but showed progression of bilateral opacities, small amount of pneumomediastinum and small bilateral pleural effusion. Concern for firbrosis per crit team. Had previously completed cefepime and doxycycline. Intubated on 11/20/21 --> 11/26/2021 tracheostomy status, on mechanical ventilation being managed per critical care team. Per prior attending: On 11/20/21, I called [facility] and spoke with Dr. Samson. We discussed patient. Unfortunately, patient is not an ECMO candidate MRSA swab is negative Patient on late DEXA ARDS protocol. 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 Pt off of precredex today. 12/06/21 s/p trach replacement completed dexamethasone on MIdodrine Brain MRI: no acute process on Clonazepam BID continue to monitor mental status Febrile illness: 11/27 blood culture no growth so far, urinary catheter removed, CT chest abdomen and pelvis sent 11/29/21 s/o worsening GGO w/ small pleural eff. and nonspecific enteritis of distal ileum. Patient started on cefepime 11/29 for ?Pul Infection. Sputum Cx sent 12/01. . off antibiotics Hx DVT, Factor V Leiden Has mild edema of the left lower extremity, chronic per patient Doppler ultrasound done during this admission: nonocclusive thrombus present within the common femoral vein and the proximal to mid superficial femoral vein- chronic per Radiologist Coumadin on hold Heparin changed to therapeutic lovenox Dyslipidemia Plan to resume Atorvastatin on dc Disposition ICU (2) Nausea vomiting and diarrhea: Admission and Anticipated Discharge Date Admission Date: November 03, 2021 Subjective ff up for acute hypoxic respiratory failure, etc resting in bed, opens eye to verbal commands, smiles at examiner otherwise does not follow other commands no signs of pain, distress no other issues per aerospace project manager of Systems Review of Systems: all noted and negative except for above Physical Exam Physical Exam: General- breathing no effort or accessory muscle use Eyes- anicteric Neck- no JVD Lungs-(+) mild rales BL Heart- normal rate, regular rhythm; no murmurs Abdomen- normal bowel sounds, nondistended, soft Extremities- mild gen edema, no calf tenderness Neuro- opens eyes when name called, smiles Skin- warm & dry Results & Data Results & Data ([facility]) Vital Signs (Past 12 Hours) Vital Signs Temp Pulse Resp BP Pulse Ox 12/06/21 13:00 37.6 C H 123 H 36 H 132/65 92 12/06/21 12:00 37.6 C H 120 H 39 H 104/53 L 91 12/06/21 11:35 119 H 41 H 90 12/06/21 11:00 37.6 C H 116 H 30 H 106/57 L 92 12/06/21 10:00 37.6 C H 120 H 41 H 116/64 91 12/06/21 09:00 37.7 C H 106 H 39 H 110/58 L 89 L 12/06/21 08:00 37.6 C H 120 H 45 H 116/57 L 89 L 12/06/21 07:25 116 H 42 H 90 12/06/21 07:00 37.5 C 117 H 37 H 104/57 L 92 12/06/21 06:00 37.6 C H 117 H 39 H 95/51 L 93 12/06/21 05:00 37.6 C H 113 H 28 H 101/54 L 92 12/06/21 04:00 37.4 C 116 H 38 H 109/58 L 90 all noted and reviewed including below
[2021-12-06] MEDS: PEPTAMEN 1.5 CAL 1,000 ML BAG NG SCH (16:56)
[2021-12-06] MEDS: fentaNYL citrate 100 MCG/2 ML VIAL IV PRN (23:02)
--- NOTE | 2021-12-06 23:46 | XRay Report ---
XR chest 1V portable at 11:23 PM CLINICAL HISTORY: hypoxia. Follow-up multifocal airspace opacities COMPARISON STUDY: 12/06/2021 6:50 AM TECHNIQUE: 1 view of the chest FINDINGS: Single frontal view of the chest demonstrates the cardiomediastinal silhouette to be within normal li mits. Tracheostomy tube is again seen. Compared to previous examination, there is interval worsening of patchy interstitial and alveolar opacities bilaterally. There is no evidence for pleural effusion. There is no evidence for vascular congestion. There is no acute osseous pathology. IMPRESSION: Interval worsening of patchy interstitial and alveolar opacities bilaterally. ACT 112: Negative or not required by law. Electronically signed by: El Rebolledo M.D. 12/06/2021 11:45 PM
[2021-12-07] MEDS: ENOXAPARIN 80 MG/0.8 ML SYR SQ SCH ×2 (00:14→12:08)
[2021-12-07] MEDS: TUBE FEEDING WATER FLUSH OG SCH ×2 (00:14→05:13)
[2021-12-07] MEDS: INSULIN ASPART PER UNIT SC SCH ×6 (00:14→21:08)
[2021-12-07] MEDS ORDERED: fentaNYL citrate 100 MCG/2 ML VIAL IV STA (00:35)
[2021-12-07] MEDS ORDERED: STAT IV Infusion **Titration per Protocol STA ×2 (04:12→06:18)
--- NOTE | 2021-12-07 04:20 | Procedure Note ---
Procedure Note Date of Service December 07, 2021 Note Procedure: Therapeutic Flexible Bronchoscopy Attending/Switchboard Mechanic: Dr. Puente, Branden Velasquez PA-C Anesthetic/Sedation: None Indication: Respiratory failure with concerns for mucus impaction/plugging in patient with existing tracheostomy site. Emergent consent implied in the setting of worsening respiratory failure with need for airway evaluation and possible clearance of secretions. A time-out was completed verifying correct patient, procedure, site, positioning, and implant(s) or special equipment if applicable. Bedside disposable bronchoscope was utilized to visualize through the tracheostomy site. Trachea demonstrates no significant secretions. I am able to visualize the james bifurcation point without any significant mucoid impaction. Visualization of the LEFT-sided airway was otherwise unremarkable. Visualization of the RIGHT airway demonstrates small area of mucus in the takeoff of the RIGHT middle lobe which was suctioned and cleared without issue. Otherwise, no other significant areas of mucoid impaction, mucus, secretion, or blood noted. Procedure was completed at this point. Patient tolerated procedure well. No immediate complications were noted. Coding CPT Codes Pulmonary/Thoracic - Pulmonary and Thoracic: 45121 Bronchoscopy, reclear airway ([id number]) [facility] Procedure Codes (Charges) Pulmonary/Thoracic Procedure 2: Pulmonary and Thoracic: 17491 Bronchoscopy, reclear airway
[2021-12-07] MEDS: PHENYLEPHRINE HCL 20 MG in DEXTROSE 5% 500 ML IV SCH ×3 (04:22→07:22)
--- NOTE | 2021-12-07 04:22 | Communication Note ---
Date of Service: December 07, 2021 As I was exiting the COVID unit, I received emergent [place] text from nursing staff that the patient had promptly dropped his blood pressure and saturation and was appearing unwell. Additionally, they report a RIGHT-sided facial droop which is new. I did present immediately to bedside. On assessment, the patient saturations were in the 70s. He is actively being bagged by respiratory therapy in an effort to improve oxygenation. RIGHT-sided facial droop was noted. Patient is more obtunded than previously in the night. Blood pressures in the 70s. Verbal orders placed to restart Julio Cesar-Synephrine drip. Additionally, prior to sending the patient to CT and initiating stroke alert, it was imperative that airway be assessed for possible impaction or correctable contributing factor which may be worsening his possible infarction. Brief emergent bedside therapeutic bronchoscopy was performed without significant findings. Stroke alert was immediately called at 0415. Timeframe from provider made aware patient was [id number] time of stroke alert being called at 0415. Orders placed for CT head as well as CTA of chest. [id number]: Call placed to [facility] for teleneurology. I did speak with Dr. Krause. I did provide extensive historical information on the patient. At this point, she agrees with increasing patient's blood pressure and attempt to help increase cerebral perfusion in the event of new CVA. At this point, as the patient has been on full dose Lovenox and fully anticoagulated, this is a direct preclusion of tPA. Additionally, she reports that the patient is too unstable to suggest undergoing mechanical intervention at this juncture. She agrees with supporting patient's blood pressure and further evaluating brain including CTA or MRA if able. Otherwise, no further recommendations at this time. 0447: I did reach out to the patient's , Mary Ann. I did provide update of change in status. At this point, I explained to her that I am generally concerned that the patient is progressing towards a nonsurvivable state as he has had an abrupt onset of hypotension with profound hypoxemia and increased oxygen requirement. Additionally, the patient has new RIGHT-sided facial droop. I explained that no intervention is able to be performed at this time. I did confirm DNR status. She is comfortable with vasopressors. She will attempt to present at bedside, however the road conditions are horrendous at this time which may prevent her from doing so. At this time, continue with blood pressure support and ventilator support as able. Orders placed for blood cultures and lactate as well as addition of broad-spectrum antibiotics with possible worsening pneumonia. I have personally spent 65 minutes of critical care time in the direct management of this patient. This is a life/limb threatening event. This includes time spent evaluating patient, direct bedside care, chart review, placing orders, interpretation of diagnostic studies, discussion with consultants, patient, and family members, as well as other required patient management activities. This time is exclusive of all separately billable procedures, and teaching time and separate from and in addition to any other critical care service time. Coding Level of Care Code Critical Care 1st 30-74 mins Time Spent (min) 65
[2021-12-07] MEDS: DEXMEDETOMIDINE HCL 200 MCG in SODIUM CHLORIDE 0.9% 48 ML IV SCH (04:34)
[2021-12-07] MEDS ORDERED: OPTIRAY 320 125ml IV ONE (04:51)
[2021-12-07 05:15] LABS: BUN Creatinine Ratio 36.5 (10-20); Calcium 8.4 mg/dl (8.5-10.1); Est GFR (African American) 60.1 ml/min; Est GFR (Non-African American) 51.8 ml/min; Magnesium 2.1 mg/dl (1.8-2.4); Phosphorus 2.8 mg/dl (2.5-4.9); Potassium 4.5 mmol/L (3.5-5.1)
[2021-12-07 05:29] LABS: Basophils # (auto) 0.04 K/uL (0-0.2); Basophils % (auto) 0.1 %; Eosinophils # (auto) 0.11 K/uL (0-0.5); Eosinophils % (auto) 0.2 %; Hematocrit (blood only) 34.9 % (42-52); Hemoglobin 10.5 g/dL (14.0-18.0); Hypochromasia Present; Immature Granulocytes # (auto) 1.04 K/uL (0.00-0.02); Lymphocytes # (auto) 1.95 K/uL (1.2-3.4); Lymphocytes % (auto) 3.8 %; Mean Corpuscular Hemoglobin 29.7 pg (25-34); Mean Corpuscular Hgb Conc 30.1 g/dL (32-36); Mean Corpuscular Volume 98.9 fL (80-100); Mean Platelet Volume 10.6 fL (7.4-10.4); Monocytes # (auto) 1.28 K/uL (0.11-0.59); Monocytes % (auto) 2.5 %; Neutrophils # (auto) 46.47 K/uL (1.4-6.5); Neutrophils % (auto) 91.4 %; Platelet Count 435 K/uL (130-400); RDW Coefficient of Variation 15.6 % (11.5-14.5); RDW Standard Deviation 56.6 fL (36.4-46.3); Red Blood Count 3.53 M/uL (4.7-6.1); Stomatocytes 1+; White Blood Count 50.89 K/uL (4.8-10.8)
[2021-12-07] MEDS ORDERED: PIPERACILL/TAZOBAC CONSULT ACTIVE PRN (05:49)
[2021-12-07] MEDS ORDERED: VANCOMYCIN CONSULT ACTIVE PRN (05:49)
[2021-12-07] MEDS ORDERED: VANCOMYCIN HCL 1,500 MG in SODIUM CHLORIDE 0.9% 500 ML IV ONE (06:00)
[2021-12-07] MEDS ORDERED: PIPERACILLIN/TAZOBACTAM 4.5 GM in DEXTROSE 5% 100 ML IV SCH (06:00)
[2021-12-07] MEDS ORDERED: PIPERACILLIN/TAZOBACTAM 4.5 GM in DEXTROSE 5% 100 ML IV ONE (06:00)
[2021-12-07 06:02] LABS: iSTAT Arterial Blood Gas HCO3 35 meg/L (19-24); iSTAT Arterial Blood Gas pCO2 81 mmHg (35-46); iSTAT Arterial Blood Gas pH 7.24 (7.35-7.45); iSTAT Arterial Blood Gas pO2 59 mmHg (80-95); iSTAT Carbon Dioxide 38 mmol/L (24-31); iSTAT FiO2 100 %; iSTAT Site R Brachial
[2021-12-07 06:02] LABS: iSTAT Allen Test Pass; iSTAT FiO2 100 %; iSTAT Site R Radial; iSTAT Venous Carbon Dioxide > 40 mmol/L (24-31)
[2021-12-07] MEDS: VASOPRESSIN 20 UNITS in 0.9 % SODIUM CHLORIDE 100 ML IV SCH ×3 (06:31→21:10)
[2021-12-07] MEDS: PHENYLEPHRINE HCL 40 MG in DEXTROSE 5% 500 ML IV SCH ×6 (07:10→21:09)
[2021-12-07] MEDS ORDERED: NORMOSOL R IV ONE (07:18)
--- NOTE | 2021-12-07 07:35 | CT Scan Report ---
CT angio chest PE protocol CLINICAL HISTORY: PE TECHNIQUE: Multidetector row helical CT of the chest was performed. Coronal and sagittal reformations were obtained. Coronal and sagittal MIPS were obtained from the axial data set and were submitted fo r review. Automated dose lowering techniques and/or adjustment according to patient size were utiliz ed for this exam. Comparison: Comparison is made to CT chest on 11/29/2021 FINDINGS: Lungs and pleura: Diffuse consolidative opacities are seen. Heart and pericardium: Heart size is normal. No pericardial effusion. Reflux of contrast into the inf erior vena cava is noted which is nonspecific but can be seen in heart failure. Vessels: No evidence of pulmonary embolism. Mediastinum and kay: Subcentimeter lymph nodes are seen. Chest wall and lower neck: Unremarkable. Abdomen: Unremarkable. Bones: Unremarkable. IMPRESSION: 1. No evidence of pulmonary embolism. 2. Diffuse consolidative opacities compatible with pneumonia. ACT 112: Negative or not required by law. Electronically signed by: Quincy Morton M.D. 12/07/2021 7:33 AM
--- NOTE | 2021-12-07 07:36 | CT Scan Report ---
HEAD CT NONCONTRAST CT DOSE: HISTORY: RIGHT sided facial droop TECHNIQUE: Multiaxial CT images of the head were performed without the use of intravenous contrast. A utomated exposure control was utilized for this study. A dose lowering technique was utilized adheri ng to the principles of ALARA. Comparison: Head CT 11/30/2021. Findings: Large bilateral mastoid effusions are again noted. Trace fluid level within the right sphen oid sinus, unchanged. The calvarium and skull base are intact. The ventricles and sulci are within no rmal limits. There is no mass, hematoma, midline shift, or acute infarct. Impression: 1. No acute intracranial abnormality. 2. Large bilateral mastoid effusions, unchanged. ACT 112: Negative or not required by law. Electronically signed by: Bhavesh Becerra M.D. 12/07/2021 7:35 AM
[2021-12-07] MEDS: MIDODRINE HCL 2.5 MG TAB PO SCH ×3 (08:09→18:22)
[2021-12-07] MEDS: clonazePAM 0.5 MG TAB PO SCH ×2 (08:10→21:09)
[2021-12-07] MEDS: ASCORBIC ACID 500 MG TAB PO SCH (08:10)
[2021-12-07] MEDS: DOCUSATE SODIUM SYRUP 100 MG/10 ML UDC PO SCH ×2 (08:10→21:09)
[2021-12-07] MEDS: ZINC SULFATE 220 MG CAPSULE PO SCH (08:10)
[2021-12-07] MEDS: PANTOprazole 40 MG in SYRINGE 0 ML IV SCH (08:21)
[2021-12-07] MEDS ORDERED: CASPOFUNGIN 70 MG in SODIUM CHLORIDE 0.9% 250 ML IV ONE (09:30)
[2021-12-07] MEDS: PIPERACILLIN/TAZOBACTAM 3.375 GM in DEXTROSE 5% 100 ML IV SCH ×2 (12:07→21:10)
[2021-12-07] MEDS: fentaNYL citrate 100 MCG/2 ML VIAL IV PRN (12:09)
--- NOTE | 2021-12-07 13:10 | Pharmacy Report ---
Pharmacy Abx Dose Short Note - Date of Service December 07, 2021 - Assessment & Plan Assessment 56 year old M receiving IV Vancomycin Patient BP and saturations dropped significantly this morning, requiring emergent bronchoscopy for worsening respiratory failure. Critical labs: WBC 50, Lactate 3, starting IV Vancomycin Note patient in ARF, baseline Scr 1 mg/dl, currently 1.47mg/dl Plan Vancomycin * AUC/GLENNA is the preferred PK/PD target for vancomycin * AUC guided dosing is effective and associated with decreased risk of nephrotoxicity compared to traditional trough targets * Vancomycin 1500mg IV x1 dose at 0611 then * Vancomycin 750mg IV Q12H is predicted to achieve target AUC/GLENNA of 400-600 mg/L.hr and may be associated with a 15 % risk of nephrotoxicity * Trough level ordered for: 12/09/21 Pharmacy will continue to follow and will adjust dose/frequency as necessary. Thank you.
--- NOTE | 2021-12-07 13:40 | Critical Care Progress Note ---
Date of Service December 07, 2021 Assessment & Plan (1) Acute hypoxemic respiratory failure due to COVID-19: (2) 2019 novel coronavirus-infected pneumonia (NCIP): (3) Factor V Leiden carrier: (4) Pneumomediastinum: Plan: CT chest 11/19/2021 personally reviewed: Diffuse patchy opacities appreciated bilaterally upper and lower lobes I do think there is a component of fibrosis to certain degree Bilateral pleural effusion small No significant mediastinal lymphadenopathy Neuro: Sedation: Clonazepam 0.5 mg twice daily -Seroquel increased to 50 mg BID --> on hold 12/02/2021 -Precedex discontinued 12/01/2021 Analgesia: Oxycodone taper --> on hold MRI brain 12/05/2021:-Negative for any acute abnormality --Transient right-sided facial droop 12/07/2021, CT head was repeated which was negative [place] [facility] were consulted and they said no intervention needed given the patient is therapeutically anticoagulated Cardiovascular: S/p hypotension: -Levophed changed to phenylephrine 12/01/2021--> off as of 12/05/2021 -Continue with midodrine 5 mg 3 times daily Respiratory: -- VDRF --> s/p trach 11/26/1943 Likely secondary toAcute hypoxic respiratory failure Secondary to multilobar COVID-19 pneumonia Patient has very poor compliance. Continue with ventilatory support Intubation 11/20 Tracheostomy 11/26 --> tracheostomy changed to 6 XLT D 12/04/2021 COVID-19 + 11/03/2021 No central PE on CTA 11/19/2021 Patient was started on late DEXA ARDS protocol -Transition from 10 mg daily to 7.5 mg x 3 days then 5 mg x 3 days then 2.5 mg x 3 days then stop Renal: --Urinary retention Vaughn reinserted on 12/05/2021 -- FRANDY Improving Monitor BUN/creatinine Avoid nephrotoxic medications Strict ins and outs --Constipationresolved 11/29 --Pulmonary hypertension Type III likely from pulmonary fibrosis likely developing from COVID-19 pneumonia --Pneumomediastinum Resolved ID: --Febrile illness -Blood cultures 11/27 no growth to date -UA largely unremarkable -Vaughn out 11/28 transition to [facility] -Sputum culture 12/01/[address] chest 12/07/2021 does not show any significant change. Heme: --History of factor Leiden deficiency Therapeutic Lovenox --Prophylaxis VTE: Lovenox therapeutic GI: Protonix once daily Lines:Peripherals, lIJ discontinued 11/28, right radial 11/28, positive Vaughn replaced 12/05/2021 for retention Diet: Tube feeds Plan: In/out: +3.4 L, urine output 1350 WBC count has gone up to 50. Antibiotics has been changed to vancomycin and Zosyn. Patient is just finished cefepime on 12/06/2021. I am going to add caspofungin and fungal culture has been ordered UA was ordered today which showed some bacteria but negative for leukocyte esterase. Follow-up culture Try to wean the vasopressors down keeping MAP greater than 65 Overall prognosis is still very guarded. Case was discussed with patient's was at bedside. Patient's [phone] I have personally spent 41 minutes of critical care time in the direct management of this patient. This is a life/limb threatening event. This includes time spent evaluating patient, direct bedside care, chart review, placing orders, interpretation of diagnostic studies, discussion with consultants, patient, and family members, as well as other required patient management activities. This time is exclusive of all separately billable procedures, and teaching time and separate from and in addition to any other critical care service time. Please note the above document was generated using voice recognition software. It may contain grammatical, syntax or spelling errors. Admission and Anticipated Discharge Date Admission Date: November 03, 2021 Subjective Patient seen and examined at bedside. No acute distress Patient was on phenylephrine and vasopressin at time of examination map was in the high 70s. We will gradually titrating down vasopressors down. He was getting 1.5 L of bolus of Normosol. Still spiking low fever Review of Systems Review of Systems: Unobtainable due to reduced consciousness Physical Exam Physical Exam: Constitutional: No acute distress HEENT: PERRLA,malar rash, positive trach Respiratory system:Decreased air entry bilaterally, no wheeze, rhonchi, positive crackles bilaterally CVS: S1-S2 positive, no murmurs or gallops Abdomen: Soft, nontender, nondistended, positive bowel sounds x4 Extremities: +2 pulses bilaterally radialis/ dorsalis pedis,no cyanosis, +2 edema LLE, +1 right lower extremity Neuro:Awake and alert, following simple commands Psych:Unable to assess G/U: Indwelling Vaughn Skin: no rashes, warm and dry Lymphatic: no cervical or axillary lymphadenopathy Results & Data Results & Data ([facility]) Vital Signs (Past 12 Hours) Vital Signs Temp Pulse Resp BP Pulse Ox 12/07/21 10:30 116 H 40 H 90 12/07/21 07:40 107 H 37 H 93 12/07/21 07:00 106 H 34 H 102/68 12/07/21 06:55 110 H 33 H 101/67 12/07/21 06:40 121 H 38 H 104/66 90 12/07/21 06:30 122 H 34 H 70/41 L 86 L 12/07/21 06:16 121 H 37 H 63/31 L 83 L 12/07/21 06:00 124 H 37 H 84/55 L 12/07/21 05:45 126 H 31 H 84/52 L 87 L 12/07/21 05:30 129 H 38 H 60 L 12/07/21 05:16 119 H 32 H 103/68 93 12/07/21 05:10 126 H 30 H 92 12/07/21 05:00 116 H 35 H 84/40 L 85 L 12/07/21 04:51 132 H 33 H 66/43 L 86 L 12/07/21 04:20 38.5 C H 119 H 39 H 80 L 12/07/21 04:15 38.5 C H 119 H 38 H 83 L 12/07/21 04:10 38.5 C H 103 H 41 H 79 L 12/07/21 04:05 38.5 C H 120 H 40 H 81 L 12/07/21 04:04 76/49 L 12/07/21 04:00 38.4 C H 118 H 40 H 12/07/21 03:55 38.4 C H 118 H 39 H 84 L 12/07/21 03:27 119 H 33 H 92 12/07/21 03:00 38.6 C H 127 H 40 H 12/07/21 02:00 38.9 C H 129 H 36 H 100/57 L Laboratory Results 12/07/21 04:28 12/07/21 04:27 Coding Level of Care Code Critical Care 1st 30-74 mins Diagnoses Acute hypoxemic respiratory failure due to COVID-19 U07.1; J96.01 2019 novel coronavirus-infected pneumonia (NCIP) U07.1; J12.82 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 Time Spent (min) 36 Comment [id number] plus [id number]
[2021-12-07 13:57] LABS: Appearance Urine Cloudy (Clear); Bilirubin Urine Negative (Negative); Blood Urine 1+ (Negative); Color Urine Yellow; Epithelial Cell Urine Auto >30 /lpf (0-5); Glucose Urine UA Negative (Negative); Ketones Urine Negative (Negative); Leukocyte Esterase Urine Negative (Negative); Nitrite Urine Negative (Negative); Protein Urine 1+ (Negative); RBC Urine Automated 0-4 /hpf (0-4); Specific Gravity Urine 1.032 (1.000-1.030); Urobilinogen Urine Negative (Negative)
[2021-12-07 14:07] LABS: Amorphous Sediment Urine Present (None Prsent)
[2021-12-07 14:08] LABS: Bacteria Urine Automated 1+ (Negative)
--- NOTE | 2021-12-07 17:03 | Hospitalist Progress Note ---
Date of Service December 07, 2021 Assessment & Plan (1) COVID-19: Plan: per Dr. Dover's notes with addendum: Acute hypoxic respiratory failure due to COVID-19 pneumonia Tested positive to COVID 19 on 10/27/21 Initially completed course of remdesivir and dexamethasone Did not meet criteria for baricitinib as patient was already admitted for more than 72 hours Acute worsening respiratory status CT PE did not show any PE but showed progression of bilateral opacities, small amount of pneumomediastinum and small bilateral pleural effusion. Concern for firbrosis per crit team. Had previously completed cefepime and doxycycline. Intubated on 11/20/21 --> 11/26/2021 tracheostomy status, on mechanical ventilation being managed per critical care team. Per prior attending: On 11/20/21, I called [facility] and spoke with Dr. Samson. We discussed patient. Unfortunately, patient is not an ECMO candidate MRSA swab is negative Patient on late DEXA ARDS protocol. 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 Pt off of precredex today. 12/07/21 completed dexamethasone on MIdodrine Brain MRI: no acute process on Clonazepam BID (+) fever, hypoxia s/p Bronch overnight repeat CT chest: unchanged Vanco, Zosyn, Caspofungin Day 1 Blood cultures pending monitor closely continue to monitor mental status Febrile illness: 11/27 blood culture no growth so far, urinary catheter removed, CT chest abdomen and pelvis sent 11/29/21 s/o worsening GGO w/ small pleural eff. and nonspecific enteritis of distal ileum. Patient started on cefepime 11/29 for ?Pul Infection. Sputum Cx sent 12/01. . Hx DVT, Factor V Leiden Has mild edema of the left lower extremity, chronic per patient Doppler ultrasound done during this admission: nonocclusive thrombus present within the common femoral vein and the proximal to mid superficial femoral vein- chronic per Radiologist Coumadin on hold Heparin changed to therapeutic lovenox Dyslipidemia Plan to resume Atorvastatin on dc Disposition ICU (2) Nausea vomiting and diarrhea: Admission and Anticipated Discharge Date Admission Date: November 03, 2021 Subjective ff up for acute hypoxic respiratory failure, pneumonia from COVID 19, etc events overnight noted patient on trach appears to be more alert occasionally smiles makes facial expressions no signs of distress, pain 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 of Systems Review of Systems: Unobtainable due to cognitive status Physical Exam Physical Exam: General- appears weak, drowsy, breathing with no effort or accessory muscle use Eyes- anicteric Neck- no JVD Lungs- (+) mild crackles bilaterally Heart- normal rate, regular rhythm; no murmurs Abdomen- normal bowel sounds, nondistended, soft, nontender Extremities- no pretibial edema, no calf tenderness Neuro- drowsy Skin- warm & dry Results & Data Results & Data ([facility]) Vital Signs (Past 12 Hours) Vital Signs Temp Pulse Resp BP Pulse Ox 12/07/21 16:50 37.8 C H 100 H 35 H 117/72 92 12/07/21 16:45 37.6 C H 97 H 36 H 113/67 89 L 12/07/21 16:25 37.8 C H 97 H 38 H 125/66 92 12/07/21 16:00 37.9 C H 99 H 34 H 113/67 94 12/07/21 15:45 37.9 C H 100 H 35 H 112/63 94 12/07/21 15:25 92 H 40 H 92 12/07/21 15:15 37.9 C H 90 42 H 117/66 90 12/07/21 15:10 37.9 C H 109 H 32 H 100/73 97 12/07/21 15:00 37.9 C H 108 H 27 H 12/07/21 14:40 37.9 C H 95 H 37 H 107/70 94 12/07/21 14:35 37.8 C H 102 H 32 H 102/53 L 12/07/21 14:30 37.8 C H 115 H 33 H 106/63 95 12/07/21 14:25 37.8 C H 109 H 36 H 87/55 L 95 12/07/21 14:15 37.8 C H 109 H 36 H 100/69 92 12/07/21 14:10 37.8 C H 122 H 40 H 110/66 87 L 12/07/21 14:05 37.8 C H 110 H 33 H 107/68 94 12/07/21 14:00 37.8 C H 123 H 31 H 104/69 88 L 12/07/21 13:50 37.7 C H 100 H 38 H 107/61 12/07/21 13:35 37.7 C H 103 H 34 H 109/59 L 12/07/21 13:25 37.7 C H 108 H 32 H 116/55 L 94 12/07/21 13:15 37.7 C H 109 H 35 H 114/67 93 12/07/21 13:10 37.7 C H 108 H 34 H 111/64 93 12/07/21 13:05 37.7 C H 112 H 39 H 99/71 L 95 12/07/21 13:00 37.7 C H 97 H 29 H 93/59 L 94 12/07/21 12:55 37.7 C H 106 H 28 H 78/54 L 12/07/21 12:40 37.7 C H 108 H 36 H 99/55 L 12/07/21 12:35 108/67 12/07/21 12:00 37.7 C H 120 H 37 H 108/63 93 12/07/21 11:55 37.7 C H 115 H 41 H 96/68 L 94 12/07/21 11:45 37.7 C H 102 H 33 H 100/68 12/07/21 11:35 37.7 C H 108 H 34 H 102/68 93 12/07/21 11:30 37.7 C H 122 H 39 H 118/71 94 12/07/21 11:15 37.7 C H 121 H 41 H 99/64 L 93 12/07/21 11:10 37.7 C H 115 H 39 H 100/71 91 12/07/21 11:01 37.7 C H 127 H 45 H 103/55 L 92 12/07/21 11:00 37.7 C H 116 H 37 H 90 12/07/21 10:35 37.6 C H 114 H 36 H 96/58 L 12/07/21 10:30 116 H 40 H 90 12/07/21 10:16 37.6 C H 113 H 36 H 101/69 91 12/07/21 10:00 115 H 38 H 89 L 12/07/21 09:55 115 H 39 H 118/54 L 91 12/07/21 09:40 110 H 36 H 114/60 90 12/07/21 09:35 108 H 38 H 118/65 91 12/07/21 09:15 114 H 35 H 115/68 95 12/07/21 09:10 132 H 33 H 105/55 L 94 12/07/21 09:05 118 H 42 H 126/58 L 95 12/07/21 09:00 115 H 35 H 96 12/07/21 08:55 123 H 41 H 111/70 95 12/07/21 08:45 122 H 38 H 116/57 L 93 12/07/21 08:40 114 H 36 H 105/73 94 12/07/21 08:25 116 H 36 H 107/66 88 L 12/07/21 08:10 120 H 40 H 101/74 91 12/07/21 08:00 121 H 41 H 90 12/07/21 07:55 111 H 36 H 107/60 12/07/21 07:40 107 H 37 H 93 12/07/21 07:35 111 H 33 H 112/71 91 12/07/21 07:00 106 H 34 H 102/68 12/07/21 06:55 110 H 33 H 101/67 12/07/21 06:40 121 H 38 H 104/66 90 12/07/21 06:30 122 H 34 H 70/41 L 86 L 12/07/21 06:16 121 H 37 H 63/31 L 83 L 12/07/21 06:00 124 H 37 H 84/55 L 12/07/21 05:45 126 H 31 H 84/52 L 87 L 12/07/21 05:30 129 H 38 H 60 L 12/07/21 05:16 119 H 32 H 103/68 93 12/07/21 05:10 126 H 30 H 92
[2021-12-07] MEDS ORDERED: NORMOSOL-R 1,000 ML IV ONE (19:15)
[2021-12-08] MEDS: ENOXAPARIN 80 MG/0.8 ML SYR SQ SCH ×3 (00:55→23:01)
[2021-12-08] MEDS: INSULIN ASPART PER UNIT SC SCH ×6 (00:59→21:11)
[2021-12-08] MEDS: PIPERACILLIN/TAZOBACTAM 3.375 GM in DEXTROSE 5% 100 ML IV SCH ×3 (04:10→21:18)
[2021-12-08 04:19] LABS: iSTAT Allen Test Pass; iSTAT Art Bld Gas pCO2 Correct 96 mmHg (35-46); iSTAT Arterial Blood Gas HCO3 35 meg/L (19-24); iSTAT Arterial Blood Gas pCO2 98 mmHg (35-46); iSTAT Arterial Blood Gas pH 7.17 (7.35-7.45); iSTAT Arterial Blood Gas pO2 78 mmHg (80-95); iSTAT Arterial Blood Gas pO2 C 76; iSTAT Carbon Dioxide 38 mmol/L (24-31); iSTAT FiO2 80 %; iSTAT Hematocrit 30 % (42-52); iSTAT Hemoglobin 10.2 g/dl (14.0-18.0); iSTAT Potassium 3.9 mmol/L (3.3-5.0); iSTAT Site R Radial; iSTAT Sodium 135 mmol/L (135-144)
[2021-12-08] MEDS: VASOPRESSIN 20 UNITS in 0.9 % SODIUM CHLORIDE 100 ML IV SCH (04:59)
[2021-12-08] MEDS: PHENYLEPHRINE HCL 40 MG in DEXTROSE 5% 500 ML IV SCH ×3 (04:59→23:01)
[2021-12-08 06:43] LABS: Hemoglobin 9.4 g/dL (14.0-18.0); Mean Corpuscular Hemoglobin 29.4 pg (25-34); Mean Corpuscular Hgb Conc 30.3 g/dL (32-36); Mean Corpuscular Volume 96.9 fL (80-100); Mean Platelet Volume 10.4 fL (7.4-10.4); Platelet Count 326 K/uL (130-400); RDW Coefficient of Variation 15.7 % (11.5-14.5); RDW Standard Deviation 55.6 fL (36.4-46.3); White Blood Count 31.27 K/uL (4.8-10.8)
[2021-12-08 07:01] LABS: Basophils # (auto) 0.02 K/uL (0-0.2); Basophils % (auto) 0.1 %; Eosinophils # (auto) 0.03 K/uL (0-0.5); Eosinophils % (auto) 0.1 %; Immature Granulocytes # (auto) 0.13 K/uL (0.00-0.02); Immature Granulocytes % (auto) 0.4 %; Lymphocytes # (auto) 2.41 K/uL (1.2-3.4); Lymphocytes % (auto) 7.7 %; Monocytes # (auto) 0.62 K/uL (0.11-0.59); Neutrophils # (auto) 28.06 K/uL (1.4-6.5); Neutrophils % (auto) 89.7 %; Rouleaux 1+
[2021-12-08 07:29] LABS: BUN Creatinine Ratio 39.1 (10-20); Bilirubin Direct 0.1 mg/dl (0-0.2); Bilirubin,Total 0.5 mg/dl (0.2-1); Calcium 8.3 mg/dl (8.5-10.1); Creatinine Clr Calc Pharmacy 52.3 ml/min; Est GFR (African American) 59.1 ml/min; Magnesium 2.3 mg/dl (1.8-2.4); Phosphorus 4.8 mg/dl (2.5-4.9); Potassium 3.8 mmol/L (3.5-5.1); Total Protein 7.1 gm/dl (6.4-8.2)
--- NOTE | 2021-12-08 08:16 | XRay Report ---
XR chest 1V portable CLINICAL HISTORY: hypoxia TECHNIQUE: Single frontal radiograph of the chest was obtained. Comparison: Comparison is made to chest one view 12/06/2021 and CTA chest 12/07/2021 FINDINGS: Lines and tubes are stable. The cardiomediastinal silhouette is obscured. Multifocal airspace opaciti es are stable to increased from prior exam. No evidence of pleural effusion or pneumothorax. IMPRESSION: Interval stability to worsening of multifocal airspace opacities. ACT 112: Negative or not required by law. Electronically signed by: Quincy Morton M.D. 12/08/2021 8:14 AM
[2021-12-08] MEDS: PANTOprazole 40 MG in SYRINGE 0 ML IV SCH (09:01)
[2021-12-08] MEDS: CASPOFUNGIN 50 MG in SODIUM CHLORIDE 0.9% 250 ML IV SCH (09:05)
[2021-12-08] MEDS ORDERED: VANCOMYCIN HCL 1,000 MG in SODIUM CHLORIDE 0.9% 250 ML IV ONE (09:30)
[2021-12-08] MEDS: ZINC SULFATE 220 MG CAPSULE PO SCH (10:07)
[2021-12-08] MEDS: ASCORBIC ACID 500 MG TAB PO SCH (10:07)
[2021-12-08] MEDS: DOCUSATE SODIUM SYRUP 100 MG/10 ML UDC PO SCH ×2 (10:07→21:12)
[2021-12-08] MEDS: clonazePAM 0.5 MG TAB PO SCH ×2 (12:40→21:12)
[2021-12-08] MEDS: MIDODRINE HCL 2.5 MG TAB PO SCH ×2 (12:40→18:47)
[2021-12-08 12:57] LABS: iSTAT Allen Test Pass; iSTAT Arterial Blood Gas HCO3 32 meg/L (19-24); iSTAT Arterial Blood Gas pCO2 84 mmHg (35-46); iSTAT Arterial Blood Gas pH 7.19 (7.35-7.45); iSTAT Arterial Blood Gas pO2 64 mmHg (80-95); iSTAT Carbon Dioxide 35 mmol/L (24-31); iSTAT FiO2 60 %; iSTAT Site R Radial
--- NOTE | 2021-12-08 13:11 | XRay Report ---
XR KUB/Abdomen 1 view CLINICAL HISTORY: Coresafe placement. COMPARISON STUDY: 11/30/2021 TECHNIQUE: Single view of the abdomen. FINDINGS: The bowel gas pattern is within normal limits without evidence for dilatation or obstruction. Feeding tube is in place with its tip in the region of the gastric antrum or duodenal bulb. There is no evid ence for organomegaly or gross intra-abdominal mass. No abnormal calcifications are seen along the co urse of the urinary tracts bilaterally. Contrast is seen within the bladder from earlier CTA. No acut e osseous pathology. IMPRESSION: 1.No acute intra-abdominal abnormality. Tip of feeding tube in the region of the gastric antrum or du odenal bulb. ACT 112: Negative or not required by law. Electronically signed by: El Rebolledo M.D. 12/08/2021 1:09 PM
--- NOTE | 2021-12-08 13:20 | Hospitalist Progress Note ---
Date of Service December 08, 2021 Assessment & Plan (1) COVID-19: Plan: per Dr. Dover's notes with addendum: Acute hypoxic respiratory failure due to COVID-19 pneumonia COVID 19 (+) on 10/27/21 Initially completed course of remdesivir and dexamethasone Did not meet criteria for baricitinib as patient was already admitted for more than 72 hours completed cefepime and doxycycline. Acute worsening respiratory status CT PE did not show any PE but showed progression of bilateral opacities, small amount of pneumomediastinum and small bilateral pleural effusion. 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 service (+) fever, hypoxia 12/08/2021 s/p Bronch overnight repeat CT chest: unchanged Vanco, Zosyn, day #2 Blood cultures pending Fever curve improving monitor closely Hx DVT, Factor V Leiden Doppler ultrasound done during this admission: nonocclusive thrombus present within the common femoral vein and the proximal to mid superficial femoral vein- chronic per Radiologist Coumadin on hold On therapeutic lovenox Disposition pending (2) Nausea vomiting and diarrhea: Admission and Anticipated Discharge Date Admission Date: November 03, 2021 Subjective Follow-up for acute hypoxic respiratory failure, COVID-19 pneumonia, status post trach placement, etc. 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 of Systems Review of Systems: all noted and negative except for above Physical Exam Physical Exam: General-on mechanical ventilator, breathing with no effort or accessory muscle use Eyes- anicteric Neck- no JVD Trach in place: No bleeding or discharge Lungs-positive mild crackles bilaterally on the anterior side Heart- normal rate, regular rhythm; no murmurs Abdomen- normal bowel sounds, nondistended, soft, nontender Extremities-mild edema of the extremities no calf tenderness Neuro-opens eyes to verbal command, unable to move extremities at this point, no other gross focal neurologic deficits Skin- warm & dry Results & Data Results & Data ([facility]) Vital Signs (Past 12 Hours) Vital Signs Temp Pulse Resp BP Pulse Ox 12/08/21 07:25 95 H 29 H 91 12/08/21 06:30 37.1 C 93 H 28 H 94 12/08/21 06:00 37.1 C 89 31 H 98/52 L 95 12/08/21 05:30 36.7 C 129 H 28 H 101/67 98 12/08/21 05:00 36.8 C 95 H 31 H 100/58 L 93 12/08/21 04:30 36.6 C 86 18 90/51 L 92 12/08/21 04:00 36.6 C 87 27 H 103/55 L 94 12/08/21 03:40 89 29 H 91 12/08/21 03:30 36.7 C 104 H 28 H 108/56 L 92 12/08/21 03:00 36.9 C 105 H 25 H 114/65 91 12/08/21 02:30 37.1 C 107 H 29 H 126/58 L 90 12/08/21 02:00 37.3 C 106 H 29 H 118/62 93 12/08/21 01:35 37.1 C 93 H 26 H 101/60 96 all noted and reviewed including below
--- NOTE | 2021-12-08 15:07 | Critical Care Progress Note ---
Date of Service December 08, 2021 Assessment & Plan (1) Acute hypoxemic respiratory failure due to COVID-19: (2) 2019 novel coronavirus-infected pneumonia (NCIP): (3) Factor V Leiden carrier: (4) Positive blood cultures: (5) Leukocytosis: (6) DVT (deep venous thrombosis): (7) ARDS (adult respiratory distress syndrome): (8) Lung fibrosis: Plan: Neuro: - [facility] ICU: [facility] at this time- patient is awake and follows simple commands, does not mouth words to answer questions Sedation: Clonazepam 0.5 mg twice daily --Transient right-sided facial droop 12/07/2021, CT head was repeated which was negative [place] neurology were consulted and they said no intervention needed given the patient is therapeutically anticoagulated Cardiovascular: Hypotension S/p hypotension: multifactorial with prolonged bedrest, sepsis, hypovolemia -Levophed changed to phenylephrine 12/01/2021--> off as of 12/05/2021 -Continue with midodrine 5 mg 3 times daily Respiratory: VDRF with hypoxemia, Tracheostomy, ARDS with fibrosis, Pneumomediastinum- resoloved- , Elevated RVSP Likely secondary toAcute hypoxic respiratory failure- completed DEXA ARDS dosing- was tapered off steroids and remains off Secondary to multilobar COVID-19 pneumonia Patient has very poor compliance. Continue with ventilatory support Intubation 11/20 Tracheostomy 11/26 --> tracheostomy changed to 6 XLT D 12/04/2021 Elevated RSVP likely secondary to COVID fibrosis- pressures obtained via ECHO only at this time - 12/07/21- worsening of bilateral opacities and consolidations on CTA of the chest- broad spectrum antibiotics started- sputum with NGTD Renal: Urinary retention, FRANDY II, Link reinserted on 12/05/2021- consider removing Link and initiating bladder training tomorrow FRANDY Improving Monitor BUN/creatinine Avoid nephrotoxic medications Strict ins and outs : Constipation- resolved ID: Leukocytosis, COVID, + Blood cultures 12/07/21 with GPC -Febrile illness -Blood cultures 11/27 no growth to date - Blood cultures 12/07/21 GPC in clusters 3/4 bottles - repeat cultures 12/08/21- - ECHO 12/08/21- evaluate for vegetation - Urine- 12/07/20- NGTD - Sputum culture ordered 12/08/21 - Sputum 12/01/21- Scant normal minnie Heme: -History of factor Leiden deficiency, DVT, Acute DVT Therapeutic Lovenox sub q BID - Prophylaxis VTE: Lovenox therapeutic GI: Protonix once daily Lines:Peripherals, lIJ discontinued 11/28, right radial 11/28, positive Link replaced 12/05/2021 for retention - Continue use of link catheter and peripheral IV lines Diet: Tube feeds Patient's [phone] I have personally spent 45 minutes of critical care time in the direct management of this patient. This is a life/limb threatening event. This includes time spent evaluating patient, direct bedside care, chart review, placing orders, interpretation of diagnostic studies, discussion with consultants, patient, and family members, as well as other required patient management activities. This time is exclusive of all separately billable procedures, and teaching time and separate from and in addition to any other critical care service time. Please note the above document was generated using voice recognition software. It may contain grammatical, syntax or spelling errors. Admission and Anticipated Discharge Date Admission Date: November 03, 2021 Supervising Physician Co-Signing Physician Notes Patient seen and examined. EMR reviewed. Discussed with bedside critical care nurse and critical care MARKY. Agree with assessment plan as noted. Prognosis guarded Subjective 56 YOM unvaccinated: HD #36, ICU Ventilator day #18 and Tracheostomy day #13. Patient had dramatic increase in his WBC yesterday to 50 and PCT 66.07- was pancultured and started on Zosyn, Vancomycin, and Caspofungin- today his WBC have decreased to 31.27. His blood cultures in both sets are growing GPC one janae ttle of the anaerobic is negative to date. He had a CT scan performed of his head and chest on the , that revealed bilateral mastoiditis as well as bilateral diffuse opacities throughout his lungs. Will order ECHO today as well as repeat his blood cultures. He was notably acidotic and hypercarbic this morning he is currently on SPONT with RR 30s, PS 20 and PEEP 8 with improvement in his ABG- currently 7.22/80/68/32. Will continue to allow him to spontaneously breathe as able with pressure support for his VT as he is maintaining and adequate minute ventilation to oxygenate and correct his acidosis. Support may be needed overnight. Of note patient also developed right sided facial droop on 12/07/[address] of head- he is therapeutically anticoagulated for a left lower extremity DVT, and is carries historical diagnosis of factor V deficiency with previous DVT. Patient remains critically ill and will need evaluation for PEG placement in the near future once his infection is identified and controlled. was updated on phone on plan and review of patient status at this time. We did discuss his blood cultures and current treatment and plan to evaluate with ECHO today and re-survey cultures. Review of Systems Review of Systems: Unable to perform secondary to patient being trached and on mechanical ventilation Physical Exam Physical Exam: Constitutional: No acute distress HEENT: PERRLA,malar rash to cheeks, no spreading, right ear tender with visualization- bilateral TMs without perforation luo in color and normal cone of light, no buldging appreciated Respiratory system:Decreased air entry bilaterally, no wheeze, rhonchi, positive crackles bilaterally- trach and on ventilator CVS: S1-S2 positive, no murmurs or gallops, +3 pitting edema to left lower leg, +2 edema to right lower leg Abdomen: Soft, nontender, nondistended, positive bowel sounds x4 Neuro:Awake and alert, following simple commands. PEERL G/U: Indwelling Link Results & Data Results & Data ([facility]) Vital Signs (Past 12 Hours) Vital Signs Temp Pulse Resp BP Pulse Ox 12/08/21 14:40 37.1 C 102 H 26 H 106/53 L 98 12/08/21 14:30 37.2 C 109 H 29 H 114/70 87 L 12/08/21 14:20 37.3 C 100 H 36 H 117/61 90 12/08/21 14:10 37.3 C 106 H 29 H 111/61 89 L 12/08/21 14:00 37.4 C 87 33 H 125/60 94 12/08/21 13:50 37.3 C 90 34 H 115/61 98 12/08/21 13:30 37.2 C 92 H 32 H 101/53 L 92 12/08/21 13:20 37.2 C 99 H 28 H 95/54 L 95 12/08/21 13:10 37.1 C 92 H 29 H 95/53 L 94 12/08/21 13:00 37.1 C 97 H 36 H 108/57 L 94 12/08/21 12:50 37.1 C 104 H 32 H 100/56 L 94 12/08/21 12:40 37.0 C 103 H 32 H 104/56 L 92 12/08/21 12:30 37.0 C 99 H 31 H 107/58 L 92 12/08/21 12:20 37.0 C 103 H 32 H 107/56 L 91 12/08/21 12:10 37.0 C 99 H 32 H 112/56 L 93 12/08/21 12:00 37.0 C 108 H 13 103/53 L 91 12/08/21 11:50 37.0 C 104 H 30 H 108/55 L 91 12/08/21 11:40 37.0 C 96 H 30 H 115/55 L 90 12/08/21 11:30 37.0 C 101 H 29 H 107/60 96 12/08/21 11:20 37.0 C 101 H 33 H 105/55 L 91 12/08/21 11:10 37.1 C 104 H 32 H 111/55 L 88 L 12/08/21 11:00 37.1 C 99 H 33 H 104/55 L 86 L 12/08/21 10:50 37.1 C 105 H 35 H 103/55 L 91 12/08/21 10:40 37.0 C 95 H 29 H 97/52 L 96 12/08/21 10:30 36.9 C 96 H 30 H 105/48 L 92 12/08/21 07:25 95 H 29 H 91 12/08/21 06:30 37.1 C 93 H 28 H 94 12/08/21 06:00 37.1 C 89 31 H 98/52 L 95 12/08/21 05:30 36.7 C 129 H 28 H 101/67 98 12/08/21 05:00 36.8 C 95 H 31 H 100/58 L 93 12/08/21 04:30 36.6 C 86 18 90/51 L 92 12/08/21 04:00 36.6 C 87 27 H 103/55 L 94 12/08/21 03:40 89 29 H 91 12/08/21 03:30 36.7 C 104 H 28 H 108/56 L 92 Laboratory Results Abnormal lab results 12/07/21 12/07/21 12/08/21 Range/Units 17:16 21:07 00:56 WBC (4.8-10.8) K/uL RBC (4.7-6.1) M/uL Hgb (14.0-18.0) g/dL POC Hgb (14.0-18.0) g/dl Hct (42-52) % POC Hct (42-52) % MCHC (32-36) g/dL RDW Std Deviation (36.4-46.3) fL RDW Coeff of Robby (11.5-14.5) % Neut # (Auto) (1.4-6.5) K/uL [place] # (Auto) (0.11-0.59) K/uL Immature Gran # (Auto) (0.00-0.02) K/uL POC pH (7.35-7.45) POC pCO2 (35-46) mmHg POC pO2 (80-95) mmHg POC HCO3 (19-24) feliz/L POC Total CO2 (24-31) mmol/L POC Base Excess (-9-1.8) feliz/L ABG pH (7.35-7.45) ABG pH (Temp Correct) (7.35-7.45) ABG pCO2 (35-46) mmHg ABG pCO2 (Temp Corrct (35-46) mmHg ABG pO2 (80-95) mmHg ABG HCO3 (19-24) mmol/L POC ABG O2 Sat (90-95) % ABG Base Excess (-9-1.8) mEq/L Sodium (136-145) mmol/L Chloride (98-107) mmol/L BUN (7-18) mg/dl Creatinine (0.6-1.4) mg/dl BUN/Creatinine Ratio (10-20) Glucose (70-99) mg/dl POC Glucose 178 H 131 H 153 H (70-99) mg/dl Calcium (8.5-10.1) mg/dl Ammonia (11-32) umol/L Albumin (3.4-5.0) gm/dl Procalcitonin (0-0.5) ng/ml 12/08/21 12/08/21 12/08/21 Range/Units 04:02 04:03 06:10 WBC (4.8-10.8) K/uL RBC (4.7-6.1) M/uL Hgb (14.0-18.0) g/dL POC Hgb 10.2 L (14.0-18.0) g/dl Hct (42-52) % POC Hct 30 L (42-52) % MCHC (32-36) g/dL RDW Std Deviation (36.4-46.3) fL RDW Coeff of Robby (11.5-14.5) % Neut # (Auto) (1.4-6.5) K/uL [place] # (Auto) (0.11-0.59) K/uL Immature Gran # (Auto) (0.00-0.02) K/uL POC pH 7.17 L* (7.35-7.45) POC pCO2 98 H (35-46) mmHg POC pO2 78 L (80-95) mmHg POC HCO3 35 H (19-24) feliz/L POC Total CO2 38 H (24-31) mmol/L POC Base Excess 7.0 H (-9-1.8) feliz/L ABG pH (7.35-7.45) ABG pH (Temp Correct) 7.170 L* (7.35-7.45) ABG pCO2 (35-46) mmHg ABG pCO2 (Temp Corrct 96 H (35-46) mmHg ABG pO2 (80-95) mmHg ABG HCO3 (19-24) mmol/L POC ABG O2 Sat (90-95) % ABG Base Excess (-9-1.8) mEq/L Sodium 132 L D (136-145) mmol/L Chloride 96 L (98-107) mmol/L BUN 58 H (7-18) mg/dl Creatinine 1.49 H (0.6-1.4) mg/dl BUN/Creatinine Ratio 39.1 H (10-20) Glucose 139 H (70-99) mg/dl POC Glucose 175 H (70-99) mg/dl Calcium 8.3 L (8.5-10.1) mg/dl Ammonia (11-32) umol/L Albumin 2.0 L (3.4-5.0) gm/dl Procalcitonin (0-0.5) ng/ml 12/08/21 12/08/21 12/08/21 Range/Units 06:10 06:10 06:10 WBC 31.27 H* (4.8-10.8) K/uL RBC 3.20 L (4.7-6.1) M/uL Hgb 9.4 L (14.0-18.0) g/dL POC Hgb (14.0-18.0) g/dl Hct 31.0 L (42-52) % POC Hct (42-52) % MCHC 30.3 L (32-36) g/dL RDW Std Deviation 55.6 H (36.4-46.3) fL RDW Coeff of Robby 15.7 H (11.5-14.5) % Neut # (Auto) 28.06 H (1.4-6.5) K/uL [place] # (Auto) 0.62 H (0.11-0.59) K/uL Immature Gran # (Auto) 0.13 H (0.00-0.02) K/uL POC pH (7.35-7.45) POC pCO2 (35-46) mmHg POC pO2 (80-95) mmHg POC HCO3 (19-24) feliz/L POC Total CO2 (24-31) mmol/L POC Base Excess (-9-1.8) feliz/L ABG pH (7.35-7.45) ABG pH (Temp Correct) (7.35-7.45) ABG pCO2 (35-46) mmHg ABG pCO2 (Temp Corrct (35-46) mmHg ABG pO2 (80-95) mmHg ABG HCO3 (19-24) mmol/L POC ABG O2 Sat (90-95) % ABG Base Excess (-9-1.8) mEq/L Sodium (136-145) mmol/L Chloride (98-107) mmol/L BUN (7-18) mg/dl Creatinine (0.6-1.4) mg/dl BUN/Creatinine Ratio (10-20) Glucose (70-99) mg/dl POC Glucose (70-99) mg/dl Calcium (8.5-10.1) mg/dl Ammonia 33.0 H (11-32) umol/L Albumin (3.4-5.0) gm/dl Procalcitonin 66.07 H (0-0.5) ng/ml 12/08/21 12/08/21 12/08/21 Range/Units 08:55 12:29 13:29 WBC (4.8-10.8) K/uL RBC (4.7-6.1) M/uL Hgb (14.0-18.0) g/dL POC Hgb (14.0-18.0) g/dl Hct (42-52) % POC Hct (42-52) % MCHC (32-36) g/dL RDW Std Deviation (36.4-46.3) fL RDW Coeff of Robby (11.5-14.5) % Neut # (Auto) (1.4-6.5) K/uL [place] # (Auto) (0.11-0.59) K/uL Immature Gran # (Auto) (0.00-0.02) K/uL POC pH 7.19 L* (7.35-7.45) POC pCO2 84 H (35-46) mmHg POC pO2 64 L (80-95) mmHg POC HCO3 32 H (19-24) feliz/L POC Total CO2 35 H (24-31) mmol/L POC Base Excess 4.0 H (-9-1.8) feliz/L ABG pH (7.35-7.45) ABG pH (Temp Correct) (7.35-7.45) ABG pCO2 (35-46) mmHg ABG pCO2 (Temp Corrct (35-46) mmHg ABG pO2 (80-95) mmHg ABG HCO3 (19-24) mmol/L POC ABG O2 Sat 85.0 L (90-95) % ABG Base Excess (-9-1.8) mEq/L Sodium (136-145) mmol/L Chloride (98-107) mmol/L BUN (7-18) mg/dl Creatinine (0.6-1.4) mg/dl BUN/Creatinine Ratio (10-20) Glucose (70-99) mg/dl POC Glucose 142 H 109 H (70-99) mg/dl Calcium (8.5-10.1) mg/dl Ammonia (11-32) umol/L Albumin (3.4-5.0) gm/dl Procalcitonin (0-0.5) ng/ml 12/08/21 12/08/21 Range/Units 15:26 16:49 WBC (4.8-10.8) K/uL RBC (4.7-6.1) M/uL Hgb (14.0-18.0) g/dL POC Hgb (14.0-18.0) g/dl Hct (42-52) % POC Hct (42-52) % MCHC (32-36) g/dL RDW Std Deviation (36.4-46.3) fL RDW Coeff of Robby (11.5-14.5) % Neut # (Auto) (1.4-6.5) K/uL [place] # (Auto) (0.11-0.59) K/uL Immature Gran # (Auto) (0.00-0.02) K/uL POC pH (7.35-7.45) POC pCO2 (35-46) mmHg POC pO2 (80-95) mmHg POC HCO3 (19-24) feliz/L POC Total CO2 (24-31) mmol/L POC Base Excess (-9-1.8) feliz/L ABG pH 7.22 L (7.35-7.45) ABG pH (Temp Correct) (7.35-7.45) ABG pCO2 80 H (35-46) mmHg ABG pCO2 (Temp Corrct (35-46) mmHg ABG pO2 68 L (80-95) mmHg ABG HCO3 32 H (19-24) mmol/L POC ABG O2 Sat (90-95) % ABG Base Excess 2.8 H (-9-1.8) mEq/L Sodium (136-145) mmol/L Chloride (98-107) mmol/L BUN (7-18) mg/dl Creatinine (0.6-1.4) mg/dl BUN/Creatinine Ratio (10-20) Glucose (70-99) mg/dl POC Glucose 127 H (70-99) mg/dl Calcium (8.5-10.1) mg/dl Ammonia (11-32) umol/L Albumin (3.4-5.0) gm/dl Procalcitonin (0-0.5) ng/ml Diagnostic Findings XR KUB/Abdomen 1 view CLINICAL HISTORY: Coresafe placement. COMPARISON STUDY: 11/30/2021 TECHNIQUE: Single view of the abdomen. FINDINGS: The bowel gas pattern is within normal limits without evidence for dilatation or obstruction. Feeding tube is in place with its tip in the region of the gastric antrum or duodenal bulb. There is no evidence for organomegaly or gross intra- abdominal mass. No abnormal calcifications are seen along the course of the urinary tracts bilaterally. Contrast is seen within the bladder from earlier CTA. No acute osseous pathology. IMPRESSION: 1.No acute intra-abdominal abnormality. Tip of feeding tube in the region of the gastric antrum or duodenal bulb. XR chest 1V portable CLINICAL HISTORY: hypoxia TECHNIQUE: Single frontal radiograph of the chest was obtained. Comparison: Comparison is made to chest one view 12/06/2021 and CTA chest 12/07/2021 FINDINGS: Lines and tubes are stable. The cardiomediastinal silhouette is obscured. Multifocal airspace opacities are stable to increased from prior exam. No evidence of pleural effusion or pneumothorax. IMPRESSION: Interval stability to worsening of multifocal airspace opacities. Medications Administered Home Medications atorvastatin 20 mg tablet 20 mg PO DAILY 11/02/21 [History Confirmed 11/03/21] ondansetron 4 mg disintegrating tablet 4 mg PO Q6H PRN #20 tab 11/02/21 [Rx Confirmed 11/03/21] warfarin 1 mg tablet 2 mg PO 5XWK 11/02/21 [History Confirmed 11/03/21] warfarin 10 mg tablet 10 mg PO DAILY 11/02/21 [History Confirmed 11/03/21] Active Medications Acetaminophen (Acetaminophen 325 Mg Tab) 325 mg PO Q4H PRN PRN Reason: Mild Pain Stop: 12/15/21 23:44 Last Admin: 12/05/21 07:54 Dose: 325 mg Documented by: Acetaminophen (Acetaminophen Susp 500 Mg/15.6 Ml Udp) 500 mg PO Q6H PRN PRN Reason: Pain or Fever Stop: 12/27/21 13:07 Last Admin: 11/27/21 18:16 Dose: 500 mg Documented by: Benzonatate (Benzonatate 100 Mg Capsule) 100 mg PO TID PRN PRN Reason: Cough Stop: 12/19/21 16:25 Clonazepam (Clonazepam 0.5 Mg Tab) 0.5 mg PO BID YANDEL Stop: 01/01/22 20:59 Last Admin: 12/08/21 12:40 Dose: Not Given Documented by: Dextrose (Dextrose 50% 50 Ml Syringe) 25 - 50 ml IV UD PRN; Protocol PRN Reason: Hypoglycemia Protocol Stop: 12/21/21 12:14 Last Admin: 11/22/21 23:15 Dose: 25 ml Documented by: Docusate Sodium (Docusate Sodium Syrup 100 Mg/10 Ml Udc) 100 mg PO BID YANDEL Stop: 12/28/21 20:59 Last Admin: 12/08/21 10:07 Dose: Not Given Documented by: Enoxaparin Sodium (Enoxaparin 80 Mg/0.8 Ml Syr) 80 mg SQ Q12H [facility] Stop: 12/25/21 11:59 Last Admin: 12/08/21 13:31 Dose: 80 mg Documented by: Enteral Nutritional Formula (Peptamen 1.5 Sid 1,000 Ml Bag) 1,000 ml NG UD [facility]; Protocol Stop: 01/02/22 12:59 Last Admin: 12/06/21 16:56 Dose: 1,000 ml Documented by: Fentanyl Citrate (Fentanyl Citrate 100 Mcg/2 Ml Vial) 50 mcg IV Q2H PRN PRN Reason: Pain Stop: 12/20/21 08:26 Last Admin: 12/07/21 12:09 Dose: 50 mcg Documented by: Glucagon (Glucagon For Inj 1 Mg Vial) 1 mg IM UD PRN; Protocol PRN Reason: Hypoglycemia Protocol Stop: 12/21/21 12:14 Glucose (Glucose 40% Gel 15 Gm Tube) 15 - 30 gm PO UD PRN; Protocol PRN Reason: Hypoglycemia Protocol Stop: 12/21/21 12:14 Glucose (Glucose 10 Tabs/Tube) 4 - 8 tabs PO UD PRN; Protocol PRN Reason: Hypoglycemia Protocol Stop: 12/21/21 12:14 Pantoprazole Sodium 40 mg/ (Syringe) 10 mls @ 5 mls/min IV DAILY [facility] Stop: 12/20/21 20:59 Last Admin: 12/08/21 09:01 Dose: 5 mls/min Documented by: Vasopressin 20 units/ Sodium (Chloride) 101 mls @ 0 mls/hr IV .Q0M YANDEL Stop: 01/06/22 06:29 Last Infusion: 12/08/21 08:40 Dose: 0 unit/min, 0 mls/hr Documented by: Piperacillin Sod/Tazobactam (Sod 3.375 gm/ Dextrose) 115 mls @ 28.75 mls/hr IV Q8H [facility]; Protocol Stop: 12/14/21 11:59 Last Admin: 12/08/21 13:32 Dose: 28.8 mls/hr Documented by: Phenylephrine HCl 40 mg/ (Dextrose) 504 mls @ 29.824 mls/hr IV .[id number] [facility]; Protocol Stop: 01/06/22 07:29 Last Admin: 12/08/21 16:15 Dose: Not Given Documented by: Caspofungin 50 mg/ Sodium (Chloride) 260 mls @ 250 mls/hr IV DAILY [facility] Stop: 12/10/21 08:59 Last Infusion: 12/08/21 10:17 Dose: Infused Documented by: Vancomycin HCl 750 mg/ Sodium (Chloride) 265 mls @ 200 mls/hr IV Q12H [facility] Stop: 12/15/21 20:59 Insulin Aspart (Insulin Aspart Per Unit) 0 units SC Q4 [facility] Stop: 12/21/21 10:29 Last Admin: 12/08/21 13:32 Dose: Not Given Documented by: Midodrine (Midodrine Hcl 2.5 Mg Tab) 5 mg PO TID@0800,1200,1700 [facility] Stop: 12/30/21 11:59 Last Admin: 12/08/21 12:40 Dose: Not Given Documented by: Miscellaneous (Carbohydrates For Hypoglycemia ) 15 - 30 gm PO PRN PRN PRN Reason: Hypoglycemia Treatment Stop: 12/21/21 12:14 Miscellaneous Information (Pharmacy Glycemic Mgmt Consult) 1 ea N/A UD PRN PRN Reason: Consult Stop: 12/21/21 12:09 Miscellaneous Information (Piperacill/Tazobac Consult Active) 1 ea N/A UD PRN PRN Reason: Consult Stop: 01/06/22 05:48 Miscellaneous Information (Vancomycin Consult Active) 1 ea N/A UD PRN PRN Reason: Consult Stop: 01/06/22 05:48 Coding Level of Care Code Critical Care 1st 30-74 mins Diagnoses Acute hypoxemic respiratory failure due to COVID-19 U07.1; J96.01 2019 novel coronavirus-infected pneumonia (NCIP) U07.1; J12.82 Factor V Leiden carrier D68.51 Positive blood cultures R78.81 Leukocytosis D72.829 DVT (deep venous thrombosis) I82.409 ARDS (adult respiratory distress syndrome) J80 Lung fibrosis J84.10
[2021-12-08 15:40] LABS: Base Excess ABG 2.8 mEq/L (-9-1.8); HCO3 ABG 32 mmol/L (19-24); Oxygen Saturation ABG 91.3 % (90-95); PCO2 ABG 80 mmHg (35-46); PO2 ABG 68 mmHg (80-95); pH ABG 7.22 (7.35-7.45)
[2021-12-08 15:45] LABS: Allen Test POS (Pos)
[2021-12-08] MEDS: PEPTAMEN 1.5 CAL 1,000 ML BAG NG SCH (18:48)
[2021-12-08] MEDS: VANCOMYCIN HCL 750 MG in SODIUM CHLORIDE 0.9% 250 ML IV SCH (21:13)
[2021-12-09] MEDS: INSULIN ASPART PER UNIT SC SCH ×6 (00:39→21:16)
[2021-12-09] MEDS: PIPERACILLIN/TAZOBACTAM 3.375 GM in DEXTROSE 5% 100 ML IV SCH ×3 (04:34→21:18)
[2021-12-09 05:19] LABS: iSTAT Allen Test Pass; iSTAT Arterial Blood Gas HCO3 38 meg/L (19-24); iSTAT Arterial Blood Gas pCO2 100 mmHg (35-46); iSTAT Arterial Blood Gas pH 7.18 (7.35-7.45); iSTAT Arterial Blood Gas pO2 77 mmHg (80-95); iSTAT Carbon Dioxide > 40 mmol/L (24-31); iSTAT FiO2 60 %; iSTAT Site R Radial
[2021-12-09 05:20] LABS: Basophils # (auto) 0.01 K/uL (0-0.2); Eosinophils % (auto) 0.5 %; Hematocrit (blood only) 28.5 % (42-52); Hemoglobin 8.5 g/dL (14.0-18.0); Immature Granulocytes # (auto) 0.11 K/uL (0.00-0.02); Immature Granulocytes % (auto) 0.5 %; Lymphocytes # (auto) 1.43 K/uL (1.2-3.4); Lymphocytes % (auto) 6.9 %; Mean Corpuscular Hemoglobin 28.9 pg (25-34); Mean Corpuscular Hgb Conc 29.8 g/dL (32-36); Mean Corpuscular Volume 96.9 fL (80-100); Mean Platelet Volume 9.9 fL (7.4-10.4); Monocytes # (auto) 0.66 K/uL (0.11-0.59); Monocytes % (auto) 3.2 %; Neutrophils # (auto) 18.46 K/uL (1.4-6.5); Neutrophils % (auto) 88.9 %; Platelet Count 355 K/uL (130-400); RDW Coefficient of Variation 15.8 % (11.5-14.5); RDW Standard Deviation 55.9 fL (36.4-46.3); Red Blood Count 2.94 M/uL (4.7-6.1); White Blood Count 20.77 K/uL (4.8-10.8)
[2021-12-09] MEDS ORDERED: VANCOMYCIN TROUGH ONE ×2 (05:30→08:30)
[2021-12-09 05:36] LABS: BUN Creatinine Ratio 38.8 (10-20); Calcium 8.4 mg/dl (8.5-10.1); Creatinine Clr Calc Pharmacy 66.9 ml/min; Est GFR (Non-African American) 61.3 ml/min; Magnesium 2.3 mg/dl (1.8-2.4); Potassium 3.7 mmol/L (3.5-5.1)
[2021-12-09 05:37] LABS: Phosphorus 4.4 mg/dl (2.5-4.9)
--- NOTE | 2021-12-09 07:44 | XRay Report ---
XR chest 1V portable CLINICAL HISTORY: f/u COMPARISON STUDY: Chest CT December 07, 2021. Chest radiograph December 08, 2021. FINDINGS: Tracheostomy tube is in place. Tip of feeding tube is below the lower aspect of this image but at least within the stomach. No pneumothorax is identified. There is a small left pleural effusio n. Extensive bilateral airspace opacities are similar to prior exam. IMPRESSION: No significant change in extensive bilateral airspace opacities. ACT 112: Negative or not required by law. Electronically signed by: Jesus Roberts M.D. 12/09/2021 7:42 AM
[2021-12-09] MEDS: MIDODRINE HCL 2.5 MG TAB PO SCH ×3 (08:54→16:56)
[2021-12-09] MEDS: PANTOprazole 40 MG in SYRINGE 0 ML IV SCH (08:56)
[2021-12-09] MEDS: clonazePAM 0.5 MG TAB PO SCH ×2 (08:59→21:18)
--- NOTE | 2021-12-09 09:21 | XCELERA ---
[id number]
[2021-12-09] MEDS: DOCUSATE SODIUM SYRUP 100 MG/10 ML UDC PO SCH ×2 (10:13→21:19)
[2021-12-09] MEDS: CASPOFUNGIN 50 MG in SODIUM CHLORIDE 0.9% 250 ML IV SCH (10:36)
[2021-12-09] MEDS: PHENYLEPHRINE HCL 40 MG in DEXTROSE 5% 500 ML IV SCH (10:36)
--- NOTE | 2021-12-09 11:18 | Critical Care Progress Note ---
Date of Service December 09, 2021 Assessment & Plan (1) Acute hypoxemic respiratory failure due to COVID-19: (2) 2019 novel coronavirus-infected pneumonia (NCIP): (3) Factor V Leiden carrier: (4) Positive blood cultures: (5) Leukocytosis: (6) DVT (deep venous thrombosis): (7) ARDS (adult respiratory distress syndrome): (8) Lung fibrosis: Plan: Impression: 56-year-old unvaccinated male admitted 11/03/2021 with COVID. He was intubated 11/20/2021 and tracheostomy was performed 11/26/2021 24-hour events: Patient continues to demonstrate very poor lung compliance and has difficulty with oxygenation as well as ventilation. Sedation has been weaned to off. Remains significantly hypercarbic and evidence of respiratory acidosis. Echocardiogram completed showing no evidence of vegetations. He remains on broad-spectrum antibiotics with improvement in his fever curve and leukocytosis. Had episode of aspiration earlier today and tube feeds are currently on hold. Recommendations: Neuro: Currently on Klonopin 0.5 mg twice a day as well as as needed fentanyl. Continue to try and mobilize as tolerated. PT and OT ordered. Cardiovascular: Hypotension resolved. Off pressors now. Continue oral midodrine for now, wean as tolerated. IVC showing collapsibility on echo. We will provide albumin support today and see how he does. Respiratory: Respiratory failure secondary to ARDS with significant fibrotic changes. Pneumomediastinum has resolved. Continue to wean ventilator as tolerated. He demonstrates inability to oxygenate and ventilate today. We will try him on pressure control ventilation with a higher driving pressure, acknowledging that this may exacerbate barotrauma. We will need to follow. Repeat blood gas in an hour. Completed course of dexamethasone. No indication for additional steroids at this point time. Discussed with that the patient has difficulty with oxygenation and ventilation at this point time. Is possible and patient may require assessment for lung transplant in the future but is quite a ways of. Continue supportive care. Renal: Kidney function back to normal. Electrolyte replacement as needed. Try and keep on slight negative balance. He does have evidence of peripheral edema. Echo showed collapsibility of IVC suggestive of intravascular volume depletion. Acid-base status does demonstrate significant respiratory acidosis. : link catheter ID: Staphylococcal aureus in blood 3 out of 4 bottles. Discontinue caspofungin today. Day #3 Zosyn vancomycin. Continue pending speciation and sensitivity. White count and fever curve are better. May need to change out lines. Heme: -History of factor V Leiden with acute DVT. On therapeutic Lovenox. Mild anemia. No signs of bleeding. Continue to follow at this point time. GI: discussed PEG with , she agrees. GI consult. Continue TF per nutrition, currently on hold based on aspiration event. Will restart at low rate. On Protonix Endo: Glycemic control per protocol. - Prophylaxis VTE: Lovenox therapeutic GI: Protonix once daily Lines:Peripherals, lIJ discontinued 11/28, right radial 11/28, positive Link replaced 12/05/2021 for retention - Continue use of link catheter and peripheral IV lines Patient's [phone] called and updated today. would like the patient transferred to LTAC in [place] as she has family there. Discussed with case management on multidisciplinary rounds this morning. Once PEG tube placed, the patient may be appropriate for transfer to LTAC I have personally spent 50 minutes of critical care time in the direct management of this patient. This is a life/limb threatening event. This includes time spent evaluating patient, direct bedside care, chart review, placing orders, interpretation of diagnostic studies, discussion with consultants, patient, and family members, as well as other required patient management activities. This time is exclusive of all separately billable procedures, and teaching time and separate from and in addition to any other critical care service time. Please note the above document was generated using voice recognition software. It may contain grammatical, syntax or spelling errors. Admission and Anticipated Discharge Date Admission Date: November 03, [address] Review of Systems Review of Systems: Unobtainable due to endotracheal tube Physical Exam Constitutional: Trached. On ventilator. Sedation off Neck: Trach site clean dry and intact Respiratory: + labored breathing, + uses accessory muscles and + tachypneic Auscultation: + crackles; no wheezes Cardiovascular: RRR, no murmur, no edema Gastrointestinal (Abdomen): normal bowel sounds, soft, nontender, no hepatosplenomegaly Musculoskeletal: Extremities: extremities normal to inspection Skin: no rashes, warm and dry Neurologic: Diffusely weak Lymphatic: no cervical lymphadenopathy Results & Data Results & Data ([facility]) Vital Signs (Past 12 Hours) Vital Signs Temp Pulse Resp BP Pulse Ox 12/09/21 09:20 37.5 C 109 H 34 H 113/59 L 92 12/09/21 09:10 37.5 C 115 H 37 H 117/61 92 12/09/21 09:00 37.5 C 112 H 33 H 122/56 L 92 12/09/21 08:50 37.5 C 112 H 33 H 115/62 93 12/09/21 08:40 37.6 C H 114 H 32 H 123/60 92 12/09/21 08:30 37.6 C H 111 H 33 H 120/63 92 12/09/21 08:20 37.6 C H 113 H 29 H 113/59 L 92 12/09/21 08:10 37.7 C H 111 H 33 H 130/66 92 12/09/21 08:00 37.7 C H 112 H 33 H 127/68 93 12/09/21 07:50 37.7 C H 112 H 30 H 131/67 92 12/09/21 07:40 37.7 C H 105 H 26 H 115/59 L 92 12/09/21 07:30 37.6 C H 98 H 27 H 112/57 L 92 12/09/21 07:20 37.6 C H 102 H 34 H 120/57 L 88 L 12/09/21 07:10 37.5 C 106 H 37 H 95/69 L 91 12/09/21 07:00 37.5 C 112 H 32 H 121/63 92 12/09/21 06:50 37.5 C 112 H 32 H 126/59 L 91 12/09/21 06:40 37.4 C 113 H 36 H 119/59 L 91 12/09/21 06:30 37.4 C 110 H 30 H 119/59 L 92 12/09/21 06:00 37.3 C 110 H 31 H 123/62 91 12/09/21 05:30 37.3 C 107 H 32 H 130/59 L 92 12/09/21 05:00 37.2 C 108 H 31 H 128/60 92 12/09/21 04:30 37.2 C 101 H 25 H 117/56 L 92 12/09/21 04:00 37.3 C 103 H 26 H 114/58 L 92 12/09/21 03:45 98 H 32 H 92 12/09/21 03:30 37.3 C 100 H 28 H 114/57 L 92 12/09/21 03:00 37.3 C 105 H 28 H 114/56 L 91 12/09/21 02:30 37.3 C 98 H 27 H 113/57 L 90 12/09/21 02:00 37.3 C 107 H 33 H 122/62 91 12/09/21 01:30 37.3 C 110 H 34 H 124/61 91 12/09/21 01:00 37.3 C 112 H 37 H 122/59 L 91 12/09/21 00:30 37.3 C 110 H 35 H 123/58 L 91 12/09/21 00:00 37.4 C 108 H 33 H 120/61 91 12/08/21 23:30 37.5 C 107 H 33 H 120/60 91 Critical Care Results & Data Vital Signs (Past 12 Hours) Vital Signs Temp Pulse Resp BP Pulse Ox 12/09/21 09:20 37.5 C 109 H 34 H 113/59 L 92 12/09/21 09:10 37.5 C 115 H 37 H 117/61 92 12/09/21 09:00 37.5 C 112 H 33 H 122/56 L 92 12/09/21 08:50 37.5 C 112 H 33 H 115/62 93 12/09/21 08:40 37.6 C H 114 H 32 H 123/60 92 12/09/21 08:30 37.6 C H 111 H 33 H 120/63 92 12/09/21 08:20 37.6 C H 113 H 29 H 113/59 L 92 12/09/21 08:10 37.7 C H 111 H 33 H 130/66 92 12/09/21 08:00 37.7 C H 112 H 33 H 127/68 93 12/09/21 07:50 37.7 C H 112 H 30 H 131/67 92 12/09/21 07:40 37.7 C H 105 H 26 H 115/59 L 92 12/09/21 07:30 37.6 C H 98 H 27 H 112/57 L 92 12/09/21 07:20 37.6 C H 102 H 34 H 120/57 L 88 L 12/09/21 07:10 37.5 C 106 H 37 H 95/69 L 91 12/09/21 07:00 37.5 C 112 H 32 H 121/63 92 12/09/21 06:50 37.5 C 112 H 32 H 126/59 L 91 12/09/21 06:40 37.4 C 113 H 36 H 119/59 L 91 12/09/21 06:30 37.4 C 110 H 30 H 119/59 L 92 12/09/21 06:00 37.3 C 110 H 31 H 123/62 91 12/09/21 05:30 37.3 C 107 H 32 H 130/59 L 92 12/09/21 05:00 37.2 C 108 H 31 H 128/60 92 12/09/21 04:30 37.2 C 101 H 25 H 117/56 L 92 12/09/21 04:00 37.3 C 103 H 26 H 114/58 L 92 12/09/21 03:45 98 H 32 H 92 12/09/21 03:30 37.3 C 100 H 28 H 114/57 L 92 12/09/21 03:00 37.3 C 105 H 28 H 114/56 L 91 12/09/21 02:30 37.3 C 98 H 27 H 113/57 L 90 12/09/21 02:00 37.3 C 107 H 33 H 122/62 91 12/09/21 01:30 37.3 C 110 H 34 H 124/61 91 12/09/21 01:00 37.3 C 112 H 37 H 122/59 L 91 12/09/21 00:30 37.3 C 110 H 35 H 123/58 L 91 12/09/21 00:00 37.4 C 108 H 33 H 120/61 91 12/08/21 23:30 37.5 C 107 H 33 H 120/60 91 Lab & Micro Results (Past 24 Hours) RBC 2.94 M/uL (4.7-6.1) L 12/09/21 WBC 20.77 K/uL (4.8-10.8) H 12/09/21 Hgb 8.5 g/dL (14.0-18.0) L 12/09/21 Hct 28.5 % (42-52) L 12/09/21 MCV 96.9 fL (80-100) 12/09/21 MCH 28.9 pg (25-34) 12/09/21 MCHC 29.8 g/dL (32-36) L 12/09/21 RDW Standard Deviation 55.9 fL (36.4-46.3) H 12/09/21 RDW Coefficient of Variation 15.8 % (11.5-14.5) H 12/09/21 Plt Count 355 K/uL (130-400) 12/09/21 MPV 9.9 fL (7.4-10.4) 12/09/21 Neutrophils (%) (Auto) 88.9 % 12/09/21 Lymphocytes (%) (Auto) 6.9 % 12/09/21 Monocytes # (Auto) 0.66 K/uL (0.11-0.59) H 12/09/21 Eosinophils # (Auto) 0.10 K/uL (0-0.5) 12/09/21 Immature Granulocyte % (Auto) 0.5 % 12/09/21 Neutrophils # (Auto) 18.46 K/uL (1.4-6.5) H 12/09/21 Lymphocytes # (Auto) 1.43 K/uL (1.2-3.4) 12/09/21 Monocytes # (Auto) 0.66 K/uL (0.11-0.59) H 12/09/21 Eosinophils # (Auto) 0.10 K/uL (0-0.5) 12/09/21 Basophils # (Auto) 0.01 K/uL (0-0.2) 12/09/21 Immature Granulocyte # (Auto) 0.11 K/uL (0.00-0.02) H 12/09/21 Na 138 mmol/L (136-145) 12/09/21 K 3.7 mmol/L (3.5-5.1) 12/09/21 Cl 100 mmol/L (98-107) 12/09/21 CO2 34 mmol/L (21-32) H 12/09/21 Anion Gap 4.0 (3-11) 12/09/21 BUN 50 mg/dl (7-18) H 12/09/21 Creatinine 1.28 mg/dl (0.6-1.4) 12/09/21 Estimated GFR ( Amer) 71.0 ml/min 12/09/21 Estimated GFR (Non-Af Amer) 61.3 ml/min 12/09/21 BUN/Creatinine Ratio 38.8 (10-20) H 12/09/21 Glu 156 mg/dl (70-99) H 12/09/21 Ca 8.4 mg/dl (8.5-10.1) L 12/09/21 Phosphorus Level 4.4 mg/dl (2.5-4.9) 12/09/21 Mg 2.3 mg/dl (1.8-2.4) 12/09/21 04:57 12/09/21 Calcium Level 8.4 mg/dl (8.5-10.1) L 12/09/21 04:57 12/09/21 Blood Gas Barometric Pressure 735.1 mm/Hg 12/08/21 15:26 12/08/21 Arterial Blood pH 7.22 (7.35-7.45) L 12/08/21 15:26 12/08/21 Arterial Blood Partial Pressure CO2 80 mmHg (35-46) H 12/08/21 15:26 12/08/21 Arterial Blood Partial Pressure O2 68 mmHg (80-95) L 12/08/21 15:26 0 12/08/21 Arterial Blood HCO3 32 mmol/L (19-24) H 12/08/21 15:26 12/08/21 Arterial Blood Base Excess 2.8 mEq/L (-9-1.8) H 12/08/21 15:26 12/08/21 Arterial Blood Oxygen Saturation 91.3 % (90-95) 12/08/21 15:26 12/08/21 Blood Gas Oxygen Given 70 12/08/21 15:26 12/08/21 Francisco Test Pass 12/09/21 04:41 12/09/21 Blood Gas Barometric Pressure 735.1 mm/Hg 12/08/21 15:26 12/08/21 Microbiology 12/07/21 13:43 Urine Culture - Final Urine,Clean Catch No growth - less than 1,000 colonies/mL. 12/07/21 06:15 Aerobic Blood Culture - Preliminary Blood Staphylococcus species Anaerobic Blood Culture - Preliminary No growth in Anaerobic bottle after 48 hours. 12/07/21 06:22 Aerobic Blood Culture - Preliminary Blood Staphylococcus species Anaerobic Blood Culture - Preliminary Staphylococcus species 12/08/21 20:00 Gram Stain - Final Sputum,Vent Suction Diagnostic Findings (Past 24 Hours) KUB X-Ray 12/08/21 11:30 XR KUB/Abdomen 1 view CLINICAL HISTORY: Coresafe placement. COMPARISON STUDY: 11/30/2021 TECHNIQUE: Single view of the abdomen. FINDINGS: The bowel gas pattern is within normal limits without evidence for dilatation or obstruction. Feeding tube is in place with its tip in the region of the gastric antrum or duodenal bulb. There is no evidence for organomegaly or gross intra- abdominal mass. No abnormal calcifications are seen along the course of the urinary tracts bilaterally. Contrast is seen within the bladder from earlier CTA. No acute osseous pathology. IMPRESSION: 1.No acute intra-abdominal abnormality. Tip of feeding tube in the region of the gastric antrum or duodenal bulb. ACT 112: Negative or not required by law. Electronically signed by: El Rebolledo M.D. 12/08/2021 1:09 PM Chest X-Ray 12/09/21 07:00 XR chest 1V portable CLINICAL HISTORY: f/u COMPARISON STUDY: Chest CT December 07, 2021. Chest radiograph December 08, 2021. FINDINGS: Tracheostomy tube is in place. Tip of feeding tube is below the lower aspect of this image but at least within the stomach. No pneumothorax is identified. There is a small left pleural effusion. Extensive bilateral airspace opacities are similar to prior exam. IMPRESSION: No significant change in extensive bilateral airspace opacities. ACT 112: Negative or not required by law. Electronically signed by: Jesus Roberts M.D. 12/09/2021 7:42 AM I & O Totals 24 Hours 12/08/21 12/09/21 12/10/21 06:59 06:59 06:59 Intake Total 6754.007 / 6754.007 1842.874 / 1842.874 200.130 / 200.130 Output Total 1721 / 1721 1576 / 1576 300 / 300 Balance 5033.007 / 5033.007 266.874 / 266.874 -99.870 / -99.870 Cumulative 11/03/21 14:22 thru 12/09/21 09:27 Intake Total 08131.014 Output Total 43264 Balance -1471.986 RT Ventilator Mngmt (Last Documented) Ventilator Ordered Settings Ventilator Support Mode CPAP 12/09/21 08:00 Respiratory Rate 34 12/09/21 09:20 Ventilator Tidal Volume 480 12/08/21 08:00 Setting Minute Ventilation 10.4 12/09/21 08:00 Ventilator Positive Pressure 20 12/09/21 08:00 Support Setting Positive End Expiratory 8 12/09/21 08:00 Pressure Fraction of Inspired Oxygen 60 12/09/21 08:00 Peak Inspiratory Flow 43 11/27/21 16:27 Machine Comment increased peep to 8 (Dr Persaud 12/08/21 14:50 aware) Ventilator - PT Measurements Respiratory Rate 34 Exhaled Tidal Volume 311 Minute Ventilation 10.4 Peak Inspiratory Airway 39 Pressure Plateau Pressure 25 Respiratory Cycle Inspiratory: 1:1.1 Expiratory Ratio Inspiratory Phase Time 0.45 End-Tidal CO2 51 Static Lung Compliance 22.63 Dynamic Lung Compliance 10.03 Normal Static Lung Compliance 41.[address] Persaud aware of CO2 increase from ABG, will evaluate patient for changes. Coding Level of Care Code Critical Care 1st 30-74 mins Diagnoses Acute hypoxemic respiratory failure due to COVID-19 U07.1; J96.01 2019 novel coronavirus-infected pneumonia (NCIP) U07.1; J12.82 Factor V Leiden carrier D68.51 Positive blood cultures R78.81 Leukocytosis D72.829 DVT (deep venous thrombosis) I82.409 ARDS (adult respiratory distress syndrome) J80 Lung fibrosis J84.10 Time Spent (min) 50
[2021-12-09] MEDS: ENOXAPARIN 80 MG/0.8 ML SYR SQ SCH (12:01)
[2021-12-09] MEDS: VANCOMYCIN HCL 750 MG in SODIUM CHLORIDE 0.9% 250 ML IV SCH ×2 (12:04→21:17)
--- NOTE | 2021-12-09 12:04 | Gastrointestinal Consultation ---
Date of Consultation December 09, 2021 Assessment & Plan (1) Inadequate oral nutritional intake: -Not presently a candidate for PEG given bacteremia, but could re-evaluate in a week. He does not appear to have any anatomical contraindications for PEG placement. Continue current feeding plan at this time. Supervising Physician Co-Signing Physician Notes Agree with CRISTINA Gomez as above Abd: Soft, NT, ND, +BS Continue current feeding plan at present Continue current therapy and supportive care as per primary team Will re-address following treatment for bacteremia History of Present Illness Reason for Consultation: COVID with trach/vent; unable to take po Attending Physician: Dhruv Crockett MD History of Present Illness Patient is a 56 yo male who unfortunately has been hospitalized since 11/03/21 for COVID19 infection resulting in acute respiratory failure/ARDS. Prior to presenting to the hospital, he had been sick for 11 days. He is currently in the ICU, with trach and mechanical ventilation. GI has been consulted for PEG placement given his ongoing inability to take food by mouth. Currently he is NG tube fed. He developed an abrupt increase in his WBC count to >50,000 and on 12/07/21 his blood cultures returned positive for staph species in 3/4 bottles. An echocardiogram was performed today to rule out endocarditis. Concern is for an infected line. Patient is currently on IV Vancomycin. WBC count is 20,770. BMI is 28. He has no abdominal surgical history. CXR from today indicates extensive airspace opacities unchanged. Allergies Allergy/AdvReac Type Severity Reaction Status Date / Time Sulfa (Sulfonamide Allergy Intermediate "tongue Verified 11/03/21 19:25 Antibiotics) turned black" Home Medications Medication Instructions Recorded Confirmed Type atorvastatin 20 mg tablet 20 mg PO DAILY 11/02/21 11/03/21 History ondansetron 4 mg disintegrating 4 mg PO Q6H PRN #20 tab 11/02/21 11/03/21 Rx tablet warfarin 1 mg tablet 2 mg PO [id number] 11/02/21 11/03/21 History warfarin 10 mg tablet 10 mg PO DAILY 11/02/21 11/03/21 History Patient History Medical History Dyslipidemia Factor V Leiden carrier Warfarin History of DVT (deep vein thrombosis) Surgical History No history of previous surgery Social History Smoking Status: Never smoker Hx Alcohol Use: No Hx Substance Use: No Preferred Language: Mozambican Communication Ability: Effective Certified Professional Coder Required: No Beliefs That Will Affect Care: Zoroastrian Zoroastrian Beliefs: no blood products marital status: Current Living Situation: Family current occupational status: employed Other Information That Helps Us Care for You: No Feels Safe at Home: Yes Safety Concerns: Feels Safe At This Time Assistive Devices: Oxygen - Continuous Review of Systems Review of Systems: Unobtainable due to endotracheal tube Physical Exam Constitutional: + ill appearing Respiratory: trach/vent Gastrointestinal (Abdomen): normal bowel sounds, soft, nontender, no hepatosplenomegaly Results & Data ([facility]) Vital Signs (Past 12 Hours) Vital Signs Temp Pulse Resp BP Pulse Ox 12/09/21 09:20 37.5 C 109 H 34 H 113/59 L 92 12/09/21 09:10 37.5 C 115 H 37 H 117/61 92 12/09/21 09:00 37.5 C 112 H 33 H 122/56 L 92 12/09/21 08:50 37.5 C 112 H 33 H 115/62 93 12/09/21 08:40 37.6 C H 114 H 32 H 123/60 92 12/09/21 08:30 37.6 C H 111 H 33 H 120/63 92 12/09/21 08:20 37.6 C H 113 H 29 H 113/59 L 92 12/09/21 08:10 37.7 C H 111 H 33 H 130/66 92 12/09/21 08:00 37.7 C H 112 H 33 H 127/68 93 12/09/21 07:50 37.7 C H 112 H 30 H 131/67 92 12/09/21 07:40 37.7 C H 105 H 26 H 115/59 L 92 12/09/21 07:30 37.6 C H 98 H 27 H 112/57 L 92 12/09/21 07:20 37.6 C H 102 H 34 H 120/57 L 88 L 12/09/21 07:10 37.5 C 106 H 37 H 95/69 L 91 12/09/21 07:00 37.5 C 112 H 32 H 121/63 92 12/09/21 06:50 37.5 C 112 H 32 H 126/59 L 91 12/09/21 06:40 37.4 C 113 H 36 H 119/59 L 91 12/09/21 06:30 37.4 C 110 H 30 H 119/59 L 92 12/09/21 06:00 37.3 C 110 H 31 H 123/62 91 12/09/21 05:30 37.3 C 107 H 32 H 130/59 L 92 12/09/21 05:00 37.2 C 108 H 31 H 128/60 92 12/09/21 04:30 37.2 C 101 H 25 H 117/56 L 92 12/09/21 04:00 37.3 C 103 H 26 H 114/58 L 92 12/09/21 03:45 98 H 32 H 92 12/09/21 03:30 37.3 C 100 H 28 H 114/57 L 92 12/09/21 03:00 37.3 C 105 H 28 H 114/56 L 12/09/21 02:30 37.3 C 98 H 27 H 113/57 L 90 12/09/21 02:00 37.3 C 107 H 33 H 122/62 91 12/09/21 01:30 37.3 C 110 H 34 H 124/61 91 12/09/21 01:00 37.3 C 112 H 37 H 122/59 L 91 12/09/21 00:30 37.3 C 110 H 35 H 123/58 L 91 12/09/21 00:00 37.4 C 108 H 33 H 120/61 91 PG Care Time/CCT Total # of Minutes Spent Total Time Spent with Patient: Total time spent is greater than 50% in coordination of care (as documented) at patient's floor/unit and/or counseling patient: Coding Level of Care Code 05833 Inpt Consult Level 3 Diagnoses Inadequate oral nutritional intake E63.9
[2021-12-09] MEDS: ALBUMIN 25% 100 mL 25 GM/100 ML VIAL IV SCH ×2 (12:11→14:15)
[2021-12-09 13:28] LABS: iSTAT Allen Test Pass; iSTAT FiO2 60 %; iSTAT Site R Radial; iSTAT Venous Carbon Dioxide > 40 mmol/L (24-31)
--- NOTE | 2021-12-09 14:31 | Pharmacy Report ---
Pharmacy Vanc AUC Short Note - Date of Service December 09, 2021 - Assessment & Plan Assessment 56 year old M receiving vancomycin and zosyn for treatment of staph species bacteremia. awaiting finalized speciation and sensitivities to determine if de- escalation is possible. Day # 3 of antimicrobial therapy. Plan Vancomycin * AUC/GLENNA is the preferred PK/PD target for vancomycin * AUC guided dosing is effective and associated with decreased risk of nephrotoxicity compared to traditional trough targets * Trough level of 19.6 mcg/mL is predicted to achieve target AUC/GLENNA of 400-600 mg/L.hr and may be associated with a 16 % risk of nephrotoxicity * Continue dose of 750 mg IV every 12 hours * Trough or random level ordered for: as clinically indicated pending continuation Pharmacy will continue to follow and will adjust dose/frequency as necessary. Thank you.
--- NOTE | 2021-12-09 14:41 | Pharmacy Report ---
Pharmacy Glycemic Short Note 2 - Date of Service December 09, 2021 - Glycemic Short BSG Results (Last 24 hours): 12/08/21 12/08/21 12/09/21 16:49 21:03 00:37 Glucose POC Glucose 127 H 141 H 138 H 12/09/21 12/09/21 12/09/21 04:39 04:57 07:18 Glucose 156 H POC Glucose 136 H 203 H 12/09/21 10:56 Glucose POC Glucose 120 H OUTPATIENT ANTIDIABETIC REGIMEN: * n/a * A1c 6.0% ASSESSMENT: 12/09: * Patient well controlled over the past for the most part, receiving 15 units of bolus insulin yesterday. Of note, TFs were held this morning due to an intolerance event and restarted this afternoon at 10 mL/hr. 12/05: * BSGs running higher yesterday than prior days. The only notable change identified was a change in tube feeds to Peptamen. Carb ratio was adjusted yesterday to account for rising BSGs however BSG then fell to 70s later in the day. As a result, we returned to a lesser dose of prandial insulin. Looking back on past data and insulin doses, his BSGs tend to be more smoothly controlled when a small dose of Lantus is provided. Will resume low dose Lantus for today and tomorrow. IV dexamethasone set to d/c after tomorrow's dose 12/04: * BSGs at goal over last 24 hrs. Steroid dose decreased to 2.5mg dexamethasone IV daily this AM. Tube feeds were changed yesterday and have been titrated to goal. Carb content of tube feeds are higher however Novolog Q 4 hrs appears to be adequately controlling. Phenylephrine has been titrated off. Will withhold basal insulin today given step down in steroid, but continue current Novolog doses. 12/03: * BSGs again fairly well controlled over last 24 hrs. Only a few BSGs in the 150-190s range following AM dexamethasone provision * He remains on Phenylephrine, however rates are lower this AM vs yesterday. IV steroid dose will decrease further tomorrow (down to 2.5mg dexamethasone daily). 12/01: * BSGs fairly well controlled over last 24 hrs despite receipt of pressors, continuous tube feeds, and IV steroids. * Today patients sedation regimen has been changed, norepi is being converted to phenylephrine, and dexamethasone dose is dropping 33% to 5mg IV daily * Will mix pressor in NSS to avoid high rates of D5W provision as base solution 11/28: * BSGs again well controlled over last 24 hrs. 5 units SQ insulin given in last 24 hrs to cover carbs in continuous tube feeds. * Patient remains on vent s/p trach, tube feeds are running at 50cc/hr (Peptamen VHP), pressors have been weaned off and IV dexamethasone dose reduced 25% today. * No need for addition of basal insulin given current BSG pattern. May be able to wean Novolog doses down with each step down in steroid dose. Pt has no prior h/o DM and A1c only consistent w/ "pre-DM" PLAN FOR INPATIENT GLYCEMIC CONTROL: * Basal: * none * NovoLog per scale Q4hrs * Goal range 110-140 mg/dl * CF = 15 mg/dl/unit * CR = 8g/unit
[2021-12-10] MEDS: INSULIN ASPART PER UNIT SC SCH ×6 (00:27→21:13)
[2021-12-10] MEDS: ENOXAPARIN 80 MG/0.8 ML SYR SQ SCH ×2 (00:28→13:26)
[2021-12-10] MEDS: PIPERACILLIN/TAZOBACTAM 3.375 GM in DEXTROSE 5% 100 ML IV SCH ×2 (04:22→15:55)
[2021-12-10 04:32] LABS: iSTAT Allen Test Pass; iSTAT Art Bld Gas pCO2 Correct 77 mmHg (35-46); iSTAT Art Bld Gas pH Corrected 7.322 (7.35-7.45); iSTAT Arterial Blood Gas HCO3 40 meg/L (19-24); iSTAT Arterial Blood Gas pCO2 77 mmHg (35-46); iSTAT Arterial Blood Gas pH 7.32 (7.35-7.45); iSTAT Arterial Blood Gas pO2 80 mmHg (80-95); iSTAT Arterial Blood Gas pO2 C 79; iSTAT Carbon Dioxide > 40 mmol/L (24-31); iSTAT Hematocrit 23 % (42-52); iSTAT Hemoglobin 7.8 g/dl (14.0-18.0); iSTAT Potassium 3.3 mmol/L (3.3-5.0); iSTAT Site R Radial; iSTAT Sodium 144 mmol/L (135-144)
[2021-12-10 04:32] LABS: iSTAT Art Bld Gas pCO2 Correct 76 mmHg (35-46); iSTAT Art Bld Gas pH Corrected 7.332 (7.35-7.45); iSTAT Arterial Blood Gas HCO3 40 meg/L (19-24); iSTAT Arterial Blood Gas pCO2 76 mmHg (35-46); iSTAT Arterial Blood Gas pH 7.33 (7.35-7.45); iSTAT Arterial Blood Gas pO2 34 mmHg (80-95); iSTAT Arterial Blood Gas pO2 C 34; iSTAT Carbon Dioxide > 40 mmol/L (24-31); iSTAT Hematocrit 22 % (42-52); iSTAT Hemoglobin 7.5 g/dl (14.0-18.0); iSTAT Potassium 3.4 mmol/L (3.3-5.0); iSTAT Site R Brachial; iSTAT Sodium 142 mmol/L (135-144)
[2021-12-10 05:33] LABS: Basophils # (auto) 0.01 K/uL (0-0.2); Basophils % (auto) 0.1 %; Eosinophils # (auto) 0.12 K/uL (0-0.5); Hematocrit (blood only) 24.9 % (42-52); Hemoglobin 7.5 g/dL (14.0-18.0); Immature Granulocytes # (auto) 0.08 K/uL (0.00-0.02); Immature Granulocytes % (auto) 0.7 %; Lymphocytes # (auto) 1.16 K/uL (1.2-3.4); Lymphocytes % (auto) 9.8 %; Mean Corpuscular Hemoglobin 29.3 pg (25-34); Mean Corpuscular Hgb Conc 30.1 g/dL (32-36); Mean Corpuscular Volume 97.3 fL (80-100); Monocytes # (auto) 0.46 K/uL (0.11-0.59); Monocytes % (auto) 3.9 %; Neutrophils # (auto) 10.05 K/uL (1.4-6.5); Neutrophils % (auto) 84.5 %; Platelet Count 297 K/uL (130-400); RDW Coefficient of Variation 15.5 % (11.5-14.5); RDW Standard Deviation 55.2 fL (36.4-46.3); Red Blood Count 2.56 M/uL (4.7-6.1); White Blood Count 11.88 K/uL (4.8-10.8)
[2021-12-10 06:01] LABS: BUN Creatinine Ratio 37.7 (10-20); Creatinine Clr Calc Pharmacy 75.1 ml/min; Est GFR (African American) 81.7 ml/min; Est GFR (Non-African American) 70.5 ml/min; Phosphorus 2.9 mg/dl (2.5-4.9); Potassium 3.3 mmol/L (3.5-5.1)
[2021-12-10 06:19] LABS: Basophilic Stippling Occasional; Stomatocytes 1+; Toxic Vacuolation 1+
--- NOTE | 2021-12-10 07:31 | XRay Report ---
XR chest 1V portable CLINICAL HISTORY: Follow-up bilateral airspace opacities. COMPARISON STUDY: 12/09/2021 TECHNIQUE: 1 view of the chest FINDINGS: Single frontal view of the chest demonstrates the cardiomediastinal silhouette to be within normal li mits. Tracheostomy tube is again seen. Compared to the previous examination, there has been interval improvement of bilateral interstitial and alveolar opacities. There is no evidence for pleural effusi on. There is no evidence for vascular congestion. There is no acute osseous pathology. IMPRESSION: Compared to previous examination, there has been mild improvement in bilateral interstiti al and alveolar opacities, left greater than right. ACT 112: Negative or not required by law. Electronically signed by: El Rebolledo M.D. 12/10/2021 7:29 AM
--- NOTE | 2021-12-10 08:58 | Critical Care Progress Note ---
Date of Service December 10, 2021 Assessment & Plan (1) Acute hypoxemic respiratory failure due to COVID-19: (2) 2019 novel coronavirus-infected pneumonia (NCIP): (3) Factor V Leiden carrier: (4) Positive blood cultures: (5) Leukocytosis: (6) DVT (deep venous thrombosis): (7) ARDS (adult respiratory distress syndrome): (8) Lung fibrosis: Plan: Impression: 56-year-old unvaccinated male admitted 11/03/2021 with COVID. He was intubated 11/20/2021 and tracheostomy was performed 11/26/2021 24-hour events: No acute events overnight. His mentation appears improved today and he is following commands. Patient does continue to have poor lung compliance but hypercarbia has shown somewhat improvement and pH 7.32, CO2 77 this morning. He remains afebrile overnight and leukocytosis improved, remains on broad- spectrum antibiotics. GI and consulted for PEG tube. Once PEG tube placed, we will make plans for patient to transfer to LTAC. Recommendations: Neuro: Currently on Klonopin 0.5 mg twice a day as well as as needed fentanyl. Continue to try and mobilize as tolerated. PT and OT ordered. Cardiovascular: Hypotension resolved. Off pressors now. Continue oral midodrine for now, wean as tolerated. Respiratory: Respiratory failure secondary to ARDS with significant fibrotic changes. Pneumomediastinum has resolved. Continue to wean ventilator as tolerated. Patient was switched to pressure control yesterday and currently on PEEP of 8/60% FiO2. Peak pressures under 40 and plateau 31. ABG this morning showed improvement in hypercapnia and respiratory acidosis. Completed course of dexamethasone. No indication for additional steroids at this point time. Patient may require assessment for lung transplant in future and this was discussed with the patient's yesterday. Continue supportive care. Renal: Kidney function back to normal. Electrolyte replacement as needed. Try and keep on slight negative balance. He does have evidence of peripheral edema. Echo showed collapsibility of IVC suggestive of intravascular volume depletion. Acid-base status does demonstrate significant respiratory acidosis. : link catheter ID: Staphylococcal in blood 3 out of 4 bottles. Caspofungin discontinued yesterday. Day #4 Zosyn vancomycin, day #3 Zosyn. Continue pending speciation and sensitivity. White count and fever curve are better. May need to change out lines. Heme: -History of factor V Leiden with acute DVT. On therapeutic Lovenox. Mild anemia. No signs of bleeding. Will need to hold Lovenox for 24 hours pending PEG. Will discuss with GI. GI: discussed PEG with , she agrees. GI consult. Tube feeds restarted yesterday. Will discuss with GI schedule for PEG tube placement as he will need to be n.p.o. at midnight prior to this procedure. On Protonix Endo: Glycemic control per protocol. - Prophylaxis VTE: Lovenox therapeutic GI: Protonix once daily Lines:Peripherals, lIJ discontinued 11/28, right radial 11/28, positive Link replaced 12/05/2021 for retention - Continue use of link catheter and peripheral IV lines Patient's [phone]. would like the patient transferred to LTAC in [place] as she has family there. Once PEG tube placed, the patient may be appropriate for transfer to LTAC CRITICAL CARE TIME - I have personally spent 40 minutes of critical care time in the direct management of this patient. This is a life/limb threatening event. This includes time spent evaluating patient, direct bedside care, chart review, placing orders, interpretation of diagnostic studies, discussion with consultants, patient, and family members, as well as other required patient management activities. This time is exclusive of all separately billable procedures, and teaching time and separate from and in addition to any other critical care service time. Please note the above document was generated using voice recognition software. It may contain grammatical, syntax or spelling errors. Admission and Anticipated Discharge Date Admission Date: November 03, 2021 Supervising Physician Co-Signing Physician Notes Patient seen and examined. EMR reviewed. Discussed with critical care MARKY, bedside critical care nurse and on multidisciplinary rounds. The patient is tolerating his current vent settings. His mental status is improved. His white count is better. Fever curve is improved. His central line will need to be changed out today. We will reevaluate whether or not he continues to require his arterial line. Awaiting GI consultation for PEG tube. Will need placement at LTAC once accepted. Awaiting speciation of the staph from the blood. Surveillance cultures have been negative. May be able to de-escalate antibiotics today. Review of Systems Review of Systems: Unobtainable due to endotracheal tube Physical Exam Constitutional: + thin, + frail appearing, cooperative and comfortable; no acute distress Eyes: PERRL, conjunctivae normal, anicteric sclerae ENMT: external ear and nose normal, oropharynx normal Neck: trachea midline, no thyromegaly Respiratory: Rhonchi auscultated bilaterally and diminished in bases, symmetrical chest wall movement. Tachypnea with respiratory rate in the low 30s, no labored breathing. Tracheostomy midline without significant swelling or edema Cardiovascular: Rate/Rhythm: regular rate and regular rhythm Heart Sounds: normal S1 and normal S2 Vessels: no JVD Extremities: normal capillary refill +1 edema to the left lower extremity Gastrointestinal (Abdomen): normal bowel sounds, soft, nontender, no hepatosplenomegaly Musculoskeletal: no cyanosis or clubbing, extremities motor strength 5/5 Skin: no rashes, warm and dry Neurologic: PERRL, EOMI, accommodation nl, no face palsy, no dysarthria Psychiatric: Follows commands Genitourinary: Indwelling Link catheter present Results & Data Results & Data ([facility]) Vital Signs (Past 12 Hours) Vital Signs Temp Pulse Resp BP Pulse Ox 12/10/21 05:20 37.1 C 110 H 35 H 126/69 94 12/10/21 05:10 37.1 C 94 H 32 H 133/66 94 12/10/21 05:00 37.2 C 92 H 29 H 137/70 95 12/10/21 04:50 37.2 C 93 H 35 H 119/65 99 12/10/21 04:40 37.1 C 90 35 H 118/68 96 12/10/21 04:30 37.0 C 92 H 31 H 124/64 98 12/10/21 04:20 36.9 C 101 H 33 H 128/68 98 12/10/21 04:10 36.9 C 97 H 33 H 121/64 97 12/10/21 04:00 36.9 C 95 H 28 H 120/66 96 12/10/21 03:50 36.9 C 99 H 32 H 120/63 94 12/10/21 03:40 36.9 C 104 H 38 H 115/62 94 12/10/21 03:30 37.0 C 97 H 28 H 123/62 94 12/10/21 03:23 91 H 34 H 95 12/10/21 03:20 37.0 C 93 H 32 H 125/61 93 12/10/21 03:10 37.1 C 94 H 32 H 127/67 93 12/10/21 03:00 37.1 C 90 28 H 121/58 L 96 12/10/21 02:50 37.1 C 104 H 32 H 117/64 94 12/10/21 02:40 37.1 C 96 H 34 H 116/64 98 12/10/21 02:30 37.1 C 96 H 32 H 114/59 L 96 12/10/21 02:20 37.1 C 104 H 30 H 126/63 96 12/10/21 02:10 37.0 C 113 H 34 H 115/61 94 12/10/21 02:00 37.0 C 94 H 28 H 134/63 95 12/10/21 01:50 37.0 C 104 H 32 H 130/67 93 12/10/21 01:40 37.0 C 86 32 H 130/72 91 12/10/21 01:30 37.0 C 89 30 H 127/62 94 12/10/21 01:20 37.0 C 104 H 32 H 134/65 91 12/10/21 00:40 37.0 C 101 H 33 H 131/65 92 12/10/21 00:30 37.0 C 88 29 H 138/65 91 12/10/21 00:20 37.1 C 94 H 37 H 133/66 91 12/10/21 00:10 37.1 C 97 H 38 H 130/66 94 12/10/21 00:00 37.2 C 106 H 29 H 106/58 L 96 12/09/21 23:50 37.2 C 99 H 32 H 114/62 96 12/09/21 23:40 37.3 C 97 H 32 H 115/60 96 12/09/21 23:30 37.3 C 101 H 29 H 118/63 96 12/09/21 23:20 37.3 C 93 H 33 H 112/56 L 98 12/09/21 23:10 37.3 C 94 H 34 H 118/63 96 12/09/21 23:07 99 H 32 H 98 12/09/21 23:00 37.2 C 103 H 31 H 117/65 98 12/09/21 22:50 37.2 C 93 H 33 H 116/58 L 96 12/09/21 22:40 37.2 C 104 H 34 H 119/64 99 12/09/21 22:30 37.2 C 95 H 34 H 126/62 99 12/09/21 22:20 37.1 C 94 H 32 H 116/57 L 99 12/09/21 22:10 37.1 C 100 H 32 H 112/60 97 12/09/21 22:00 37.1 C 97 H 28 H 115/63 97 12/09/21 21:50 37.1 C 97 H 32 H 110/57 L 96 12/09/21 21:40 37.1 C 97 H 32 H 108/60 96 12/09/21 21:30 37.1 C 96 H 28 H 112/56 L 96 12/09/21 21:20 37.1 C 106 H 34 H 111/57 L 95 12/09/21 21:10 37.2 C 102 H 33 H 107/59 L 94 12/09/21 21:00 37.2 C 99 H 28 H 114/59 L 95 Critical Care Results & Data Vital Signs (Past 12 Hours) Vital Signs Temp Pulse Resp BP Pulse Ox 12/10/21 05:20 37.1 C 110 H 35 H 126/69 94 12/10/21 05:10 37.1 C 94 H 32 H 133/66 94 12/10/21 05:00 37.2 C 92 H 29 H 137/70 95 12/10/21 04:50 37.2 C 93 H 35 H 119/65 99 12/10/21 04:40 37.1 C 90 35 H 118/68 96 12/10/21 04:30 37.0 C 92 H 31 H 124/64 98 12/10/21 04:20 36.9 C 101 H 33 H 128/68 98 12/10/21 04:10 36.9 C 97 H 33 H 121/64 97 12/10/21 04:00 36.9 C 95 H 28 H 120/66 96 12/10/21 03:50 36.9 C 99 H 32 H 120/63 94 12/10/21 03:40 36.9 C 104 H 38 H 115/62 94 12/10/21 03:30 37.0 C 97 H 28 H 123/62 94 12/10/21 03:23 91 H 34 H 95 12/10/21 03:20 37.0 C 93 H 32 H 125/61 93 12/10/21 03:10 37.1 C 94 H 32 H 127/67 93 12/10/21 03:00 37.1 C 90 28 H 121/58 L 96 12/10/21 02:50 37.1 C 104 H 32 H 117/64 94 12/10/21 02:40 37.1 C 96 H 34 H 116/64 98 12/10/21 02:30 37.1 C 96 H 32 H 114/59 L 96 12/10/21 02:20 37.1 C 104 H 30 H 126/63 96 12/10/21 02:10 37.0 C 113 H 34 H 115/61 94 12/10/21 02:00 37.0 C 94 H 28 H 134/63 95 12/10/21 01:50 37.0 C 104 H 32 H 130/67 93 12/10/21 01:40 37.0 C 86 32 H 130/72 91 12/10/21 01:30 37.0 C 89 30 H 127/62 94 12/10/21 01:20 37.0 C 104 H 32 H 134/65 91 12/10/21 00:40 37.0 C 101 H 33 H 131/65 92 12/10/21 00:30 37.0 C 88 29 H 138/65 91 12/10/21 00:20 37.1 C 94 H 37 H 133/66 91 12/10/21 00:10 37.1 C 97 H 38 H 130/66 94 12/10/21 00:00 37.2 C 106 H 29 H 106/58 L 96 12/09/21 23:50 37.2 C 99 H 32 H 114/62 96 12/09/21 23:40 37.3 C 97 H 32 H 115/60 96 12/09/21 23:30 37.3 C 101 H 29 H 118/63 96 12/09/21 23:20 37.3 C 93 H 33 H 112/56 L 98 12/09/21 23:10 37.3 C 94 H 34 H 118/63 96 12/09/21 23:07 99 H 32 H 98 12/09/21 23:00 37.2 C 103 H 31 H 117/65 98 12/09/21 22:50 37.2 C 93 H 33 H 116/58 L 96 12/09/21 22:40 37.2 C 104 H 34 H 119/64 99 12/09/21 22:30 37.2 C 95 H 34 H 126/62 99 12/09/21 22:20 37.1 C 94 H 32 H 116/57 L 99 12/09/21 22:10 37.1 C 100 H 32 H 112/60 97 12/09/21 22:00 37.1 C 97 H 28 H 115/63 97 12/09/21 21:50 37.1 C 97 H 32 H 110/57 L 96 12/09/21 21:40 37.1 C 97 H 32 H 108/60 96 12/09/21 21:30 37.1 C 96 H 28 H 112/56 L 96 Lab & Micro Results (Past 24 Hours) RBC 2.56 M/uL (4.7-6.1) L 12/10/21 WBC 11.88 K/uL (4.8-10.8) H 12/10/21 Hgb 7.5 g/dL (14.0-18.0) L 12/10/21 Hct 24.9 % (42-52) L 12/10/21 MCV 97.3 fL (80-100) 12/10/21 MCH 29.3 pg (25-34) 12/10/21 MCHC 30.1 g/dL (32-36) L 12/10/21 RDW Standard Deviation 55.2 fL (36.4-46.3) H 12/10/21 RDW Coefficient of Variation 15.5 % (11.5-14.5) H 12/10/21 Plt Count 297 K/uL (130-400) 12/10/21 MPV 10.0 fL (7.4-10.4) 12/10/21 Neutrophils (%) (Auto) 84.5 % 12/10/21 Lymphocytes (%) (Auto) 9.8 % 12/10/21 Monocytes # (Auto) 0.46 K/uL (0.11-0.59) 12/10/21 Eosinophils # (Auto) 0.12 K/uL (0-0.5) 12/10/21 Immature Granulocyte % (Auto) 0.7 % 12/10/21 Neutrophils # (Auto) 10.05 K/uL (1.4-6.5) H 12/10/21 Lymphocytes # (Auto) 1.16 K/uL (1.2-3.4) L 12/10/21 Monocytes # (Auto) 0.46 K/uL (0.11-0.59) 12/10/21 Eosinophils # (Auto) 0.12 K/uL (0-0.5) 12/10/21 Basophils # (Auto) 0.01 K/uL (0-0.2) 12/10/21 Immature Granulocyte # (Auto) 0.08 K/uL (0.00-0.02) H 12/10/21 Basophilic Stippling Occasional 12/10/21 Stomatocytes 1+ 12/10/21 Toxic Vacuolation 1+ 12/10/21 Na 143 mmol/L (136-145) 12/10/21 K 3.3 mmol/L (3.5-5.1) L 12/10/21 Cl 102 mmol/L (98-107) 12/10/21 CO2 37 mmol/L (21-32) H 12/10/21 Anion Gap 4 (3-11) 12/10/21 BUN 43 mg/dl (6-23) H 12/10/21 Creatinine 1.14 mg/dl (0.6-1.4) 12/10/21 Estimated GFR ( Amer) 81.7 ml/min 12/10/21 Estimated GFR (Non-Af Amer) 70.5 ml/min 12/10/21 BUN/Creatinine Ratio 37.7 (10-20) H 12/10/21 Glu 116 mg/dl (70-99) H 12/10/21 Ca 8.0 mg/dl (8.5-10.1) L 12/10/21 Phosphorus Level 2.9 mg/dl (2.5-4.9) 12/10/21 Mg 2.0 mg/dl (1.7-2.4) 12/10/21 04:54 12/10/21 Calcium Level 8.0 mg/dl (8.5-10.1) L 12/10/21 04:54 12/10/21 Francisco Test Pass 12/10/21 04:06 12/10/21 Microbiology 12/08/21 15:25 Aerobic Blood Culture - Preliminary Blood No growth in Aerobic bottle after 24 hours. Anaerobic Blood Culture - Preliminary No growth in Anaerobic bottle after 24 hours. 12/08/21 15:43 Aerobic Blood Culture - Preliminary Blood No growth in Aerobic bottle after 24 hours. Anaerobic Blood Culture - Preliminary No growth in Anaerobic bottle after 24 hours. 12/07/21 13:43 Urine Culture - Final Urine,Clean Catch No growth - less than 1,000 colonies/mL. 12/07/21 06:15 Aerobic Blood Culture - Preliminary Blood Staphylococcus species Anaerobic Blood Culture - Preliminary No growth in Anaerobic bottle after 48 hours. 12/07/21 06:22 Aerobic Blood Culture - Preliminary Blood Staphylococcus species Anaerobic Blood Culture - Preliminary Staphylococcus species 12/08/21 20:00 Gram Stain - Final Sputum,Vent Suction Diagnostic Findings (Past 24 Hours) Chest X-Ray 12/10/21 07:00 XR chest 1V portable CLINICAL HISTORY: Follow-up bilateral airspace opacities. COMPARISON STUDY: 12/09/2021 TECHNIQUE: 1 view of the chest FINDINGS: Single frontal view of the chest demonstrates the cardiomediastinal silhouette to be within normal limits. Tracheostomy tube is again seen. Compared to the previous examination, there has been interval improvement of bilateral interstitial and alveolar opacities. There is no evidence for pleural effusion. There is no evidence for vascular congestion. There is no acute osseous pathology. IMPRESSION: Compared to previous examination, there has been mild improvement in bilateral interstitial and alveolar opacities, left greater than right. ACT 112: Negative or not required by law. Electronically signed by: El Rebolledo M.D. 12/10/2021 7:29 AM I & O Totals 24 Hours 12/09/21 12/10/21 12/11/21 06:59 06:59 06:59 Intake Total 1842.874 / 6326.163 6092.130 / 1220.130 Output Total 1576 / 1576 2201 / 2201 Balance 266.874 / 266.874 -980.870 / -980.870 Cumulative 11/03/21 14:22 thru 12/10/21 07:15 Intake Total 69714.014 Output Total 43375 Balance -2352.986 RT Ventilator Mngmt (Last Documented) Ventilator Ordered Settings Ventilator Support Mode Pressure Control 12/10/21 04:00 Respiratory Rate 35 12/10/21 05:20 Ventilator Tidal Volume 480 12/08/21 08:00 Setting Minute Ventilation 9.6 12/10/21 03:23 Ventilator Positive Pressure 20 12/09/21 08:00 Support Setting Positive End Expiratory 8 12/10/21 04:00 Pressure Fraction of Inspired Oxygen 60 12/10/21 04:00 Peak Inspiratory Flow 43 11/27/21 16:27 Inspiratory Pressure 28 12/10/21 03:23 Machine Comment settings adjusted by Dr. Persaud at 12/09/21 11:25 1122 Ventilator - PT Measurements Respiratory Rate 35 Exhaled Tidal Volume 323 Minute Ventilation 9.6 Peak Inspiratory Airway 42 Pressure Plateau Pressure 29.6 Respiratory Cycle Inspiratory: 1:2.1 Expiratory Ratio Inspiratory Phase Time 0.6 End-Tidal CO2 46 Static Lung Compliance 14.95 Dynamic Lung Compliance 9.50 Normal Static Lung Compliance 40.00 Patient Measurements Comment Trach care completed Coding Level of Care Code Critical Care 1st 30-74 mins Diagnoses Acute hypoxemic respiratory failure due to COVID-19 U07.1; J96.01 2019 novel coronavirus-infected pneumonia (NCIP) U07.1; J12.82 Factor V Leiden carrier D68.51 Positive blood cultures R78.81 Leukocytosis D72.829 DVT (deep venous thrombosis) I82.409 ARDS (adult respiratory distress syndrome) J80 Lung fibrosis J84.10
[2021-12-10] MEDS: PANTOprazole 40 MG in SYRINGE 0 ML IV SCH (09:10)
[2021-12-10] MEDS: clonazePAM 0.5 MG TAB PO SCH ×2 (09:10→21:13)
[2021-12-10] MEDS: VANCOMYCIN HCL 750 MG in SODIUM CHLORIDE 0.9% 250 ML IV SCH ×2 (09:10→21:13)
[2021-12-10] MEDS: MIDODRINE HCL 2.5 MG TAB PO SCH ×3 (09:10→17:50)
[2021-12-10] MEDS: DOCUSATE SODIUM SYRUP 100 MG/10 ML UDC PO SCH ×2 (10:06→21:13)
[2021-12-10] MEDS ORDERED: cefTRIAXone SODIUM 2,000 MG in DEXTROSE 5% 50 ML IV SCH (12:15)
--- NOTE | 2021-12-10 16:54 | Hospitalist Progress Note ---
Date of Service December 10, 2021 Assessment & Plan (1) Acute respiratory failure: (2) ARDS (adult respiratory distress syndrome): (3) 2019 novel coronavirus-infected pneumonia (NCIP): Plan: Respiratory failure 2/2 ARDS with fibrotic changes. Pneumomediastinum has resolved. Intubated on 11/20/21 --> 11/26/2021 tracheostomy status, on mechanical ventilation being managed per critical care team. Remains on ventilator in ICU, wean as tolerated. Completed dexamethasone. (4) Bacteremia: Plan: Continues on Vanc and Ceftriaxone. Staph species growing in blood (collected 12/07), not MRSA. 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 Cont Lovenox. Plan: Plan for LTAC after PEG tube placed. Mira James DO [facility] Hospitalist Admission and Anticipated Discharge Date Admission Date: November 03, 2021 Subjective 56 yo M admitted for acute respiratory failure 2/2 covid pneumonia. S/p trach GI consult in place pending PEG tube placement. clinically improved overall not following instructions well although eyes open and he appears to be saying something Review of Systems Review of Systems: Cannot obtain ROS as patient is unable to communicate 2/2 trach and mechanical ventilation. Physical Exam Physical Exam: CONSTITUTIONAL: WNWD, vitals as above, generally NAD EYES: normal conjunctivae, no scleral icterus ENT: external ear and nose normal NECK: trachea midline, trach in place. RESPIRATORY: coarse rhonchi throughout, no rales or wheezes, vented. CARDIOVASCULAR: regular rate and rhythm, S1 and 2 heard without murmurs, gallops or rubs, no JVD, 3+ pitting edema on the LLE, 1+ pitting edema on the RLE CHEST: inspection of chest was normal GASTROINTESTINAL: soft, nontender, ND, no guarding MUSCULOSKELETAL: generalized weakness, moves both arms symmetrically, limited ability to assess patient strength as he is not able to follow commands. SKIN: warm and dry NEUROLOGIC: CN 2-12 grossly intact, cannot speak 2/2 trach and vent, eyes open. Cannot assess orientation. Results & Data Results & Data ([facility]) Vital Signs (Past 12 Hours) Vital Signs Temp Pulse Resp BP Pulse Ox 12/10/21 15:50 100 H 37 H 95 12/10/21 14:20 37.3 C 108 H 28 H 146/76 H 96 12/10/21 14:10 37.3 C 101 H 34 H 137/62 95 12/10/21 14:00 37.3 C 102 H 34 H 130/66 95 12/10/21 13:50 37.3 C 107 H 30 H 135/64 96 12/10/21 13:40 37.3 C 101 H 34 H 138/67 94 12/10/21 13:30 37.3 C 107 H 35 H 120/65 12/10/21 13:20 37.3 C 107 H 35 H 140/72 95 12/10/21 13:10 37.3 C 106 H 35 H 137/62 96 12/10/21 13:00 37.3 C 96 H 33 H 134/67 95 12/10/21 12:50 37.2 C 81 33 H 136/63 96 12/10/21 12:45 37.1 C 108 H 32 H 132/64 100 12/10/21 12:00 37.3 C 91 H 47 H 85 L 12/10/21 11:50 37.1 C 105 H 39 H 132/65 92 12/10/21 11:40 37.1 C 98 H 35 H 127/64 92 12/10/21 11:30 37.1 C 103 H 37 H 118/61 92 12/10/21 11:20 37.1 C 102 H 35 H 130/62 92 12/10/21 11:10 37.2 C 99 H 37 H 135/64 90 12/10/21 11:00 37.1 C 124 H 35 H 120/53 L 100 12/10/21 10:55 107 H 35 H 95 12/10/21 10:50 37.1 C 104 H 39 H 124/62 94 12/10/21 10:40 37.1 C 102 H 32 H 126/65 95 12/10/21 10:30 37.1 C 100 H 32 H 126/64 96 12/10/21 10:20 37.1 C 102 H 32 H 124/66 94 12/10/21 10:10 37.1 C 101 H 34 H 130/65 87 L 12/10/21 10:00 37.1 C 96 H 34 H 146/62 H 89 L 12/10/21 09:50 37.0 C 89 36 H 139/66 96 12/10/21 09:40 139/64 12/10/21 08:40 92 H 31 H 97 12/10/21 08:04 98 H 34 H 93 12/10/21 05:20 37.1 C 110 H 35 H 126/69 94 12/10/21 05:10 37.1 C 94 H 32 H 133/66 94 12/10/21 05:00 37.2 C 92 H 29 H 137/70 95 Laboratory Results Short CBC 12/10/21 Range/Units 04:54 WBC 11.88 H (4.8-10.8) K/uL Hgb 7.5 L (14.0-18.0) g/dL Hct 24.9 L (42-52) % Plt Count 297 (130-400) K/uL BMP 12/10/21 04:54 Sodium 143 Potassium 3.3 L Chloride 102 Carbon Dioxide 37 H BUN 43 H Creatinine 1.14 Glucose 116 H Calcium 8.0 L Diagnostic Findings Chest X-Ray 12/10/21 07:00 XR chest 1V portable CLINICAL HISTORY: Follow-up bilateral airspace opacities. COMPARISON STUDY: 12/09/2021 TECHNIQUE: 1 view of the chest FINDINGS: Single frontal view of the chest demonstrates the cardiomediastinal silhouette to be within normal limits. Tracheostomy tube is again seen. Compared to the previous examination, there has been interval improvement of bilateral interstitial and alveolar opacities. There is no evidence for pleural effusion. There is no evidence for vascular congestion. There is no acute osseous pathology. IMPRESSION: Compared to previous examination, there has been mild improvement in bilateral interstitial and alveolar opacities, left greater than right. ACT 112: Negative or not required by law. Electronically signed by: El Rebolledo M.D. 12/10/2021 7:29 AM Medications Administered Current Inpatient Medications Acetaminophen (Acetaminophen 325 Mg Tab) 325 mg PO Q4H PRN PRN Reason: Mild Pain Stop: 12/15/21 23:44 Last Admin: 12/05/21 07:54 Dose: 325 mg Documented by: Acetaminophen (Acetaminophen Susp 500 Mg/15.6 Ml Udp) 500 mg PO Q6H PRN PRN Reason: Pain or Fever Stop: 12/27/21 13:07 Last Admin: 11/27/21 18:16 Dose: 500 mg Documented by: Clonazepam (Clonazepam 0.5 Mg Tab) 0.5 mg PO BID [facility] Stop: 01/01/22 20:59 Last Admin: 12/10/21 09:10 Dose: 0.5 mg Documented by: Dextrose (Dextrose 50% 50 Ml Syringe) 25 - 50 ml IV UD PRN; Protocol PRN Reason: Hypoglycemia Protocol Stop: 12/21/21 12:14 Last Admin: 11/22/21 23:15 Dose: 25 ml Documented by: Docusate Sodium (Docusate Sodium Syrup 100 Mg/10 Ml Udc) 100 mg PO BID [facility] Stop: 12/28/21 20:59 Last Admin: 12/10/21 10:06 Dose: Not Given Documented by: Enoxaparin Sodium (Enoxaparin 80 Mg/0.8 Ml Syr) 80 mg SQ Q12H [facility] Stop: 12/25/21 11:59 Last Admin: 12/10/21 13:26 Dose: 80 mg Documented by: Enteral Nutritional Formula (Peptamen 1.5 Sid 1,000 Ml Bag) 1,000 ml NG UD [facility]; Protocol Stop: 01/02/22 12:59 Last Admin: 12/08/21 18:48 Dose: 1,000 ml Documented by: Fentanyl Citrate (Fentanyl Citrate 100 Mcg/2 Ml Vial) 50 mcg IV Q2H PRN PRN Reason: Pain Stop: 12/20/21 08:26 Last Admin: 12/07/21 12:09 Dose: 50 mcg Documented by: Glucagon (Glucagon For Inj 1 Mg Vial) 1 mg IM UD PRN; Protocol PRN Reason: Hypoglycemia Protocol Stop: 12/21/21 12:14 Glucose (Glucose 40% Gel 15 Gm Tube) 15 - 30 gm PO UD PRN; Protocol PRN Reason: Hypoglycemia Protocol Stop: 12/21/21 12:14 Glucose (Glucose 10 Tabs/Tube) 4 - 8 tabs PO UD PRN; Protocol PRN Reason: Hypoglycemia Protocol Stop: 12/21/21 12:14 Pantoprazole Sodium 40 mg/ (Syringe) 10 mls @ 5 mls/min IV DAILY [facility] Stop: 12/20/21 20:59 Last Admin: 12/10/21 09:10 Dose: 5 mls/min Documented by: Vancomycin HCl 750 mg/ Sodium (Chloride) 265 mls @ 200 mls/hr IV Q12H [facility] Stop: 12/15/21 20:59 Last Infusion: 12/10/21 10:34 Dose: Infused Documented by: Ceftriaxone Sodium 2,000 mg/ (Dextrose) 70 mls @ 140 mls/hr IV Q24H [facility] Stop: 12/14/21 12:44 Last Infusion: 12/10/21 14:25 Dose: Infused Documented by: Insulin Aspart (Insulin Aspart Per Unit) 0 units SC Q4 [facility] Stop: 12/21/21 10:29 Last Admin: 12/10/21 12:59 Dose: Not Given Documented by: Midodrine (Midodrine Hcl 2.5 Mg Tab) 5 mg PO TID@0800,1200,1700 [facility] Stop: 12/30/21 11:59 Last Admin: 12/10/21 13:26 Dose: 5 mg Documented by: Miscellaneous (Carbohydrates For Hypoglycemia ) 15 - 30 gm PO PRN PRN PRN Reason: Hypoglycemia Treatment Stop: 12/21/21 12:14 Miscellaneous Information (Pharmacy Glycemic Mgmt Consult) 1 ea N/A UD PRN PRN Reason: Consult Stop: 12/21/21 12:09 Miscellaneous Information (Piperacill/Tazobac Consult Active) 1 ea N/A UD PRN PRN Reason: Consult Stop: 01/06/22 05:48 Miscellaneous Information (Vancomycin Consult Active) 1 ea N/A UD PRN PRN Reason: Consult Stop: 01/06/22 05:48
[2021-12-11] MEDS: ENOXAPARIN 80 MG/0.8 ML SYR SQ SCH ×2 (00:27→11:16)
[2021-12-11] MEDS: INSULIN ASPART PER UNIT SC SCH ×6 (00:28→21:17)
[2021-12-11 04:39] LABS: iSTAT Allen Test Pass; iSTAT Arterial Blood Gas HCO3 40 meg/L (19-24); iSTAT Arterial Blood Gas pCO2 62 mmHg (35-46); iSTAT Arterial Blood Gas pH 7.42 (7.35-7.45); iSTAT Arterial Blood Gas pO2 76 mmHg (80-95); iSTAT Carbon Dioxide > 40 mmol/L (24-31); iSTAT FiO2 60 %; iSTAT Site R Radial
[2021-12-11 06:56] LABS: Hematocrit (blood only) 29.8 % (42-52); Mean Corpuscular Hemoglobin 28.8 pg (25-34); Mean Corpuscular Hgb Conc 30.2 g/dL (32-36); Mean Corpuscular Volume 95.5 fL (80-100); Mean Platelet Volume 9.9 fL (7.4-10.4); Platelet Count 337 K/uL (130-400); RDW Coefficient of Variation 15.1 % (11.5-14.5); RDW Standard Deviation 52.6 fL (36.4-46.3); Red Blood Count 3.12 M/uL (4.7-6.1); White Blood Count 11.96 K/uL (4.8-10.8)
[2021-12-11 07:19] LABS: Basophils # (auto) 0.02 K/uL (0-0.2); Basophils % (auto) 0.2 %; Eosinophils % (auto) 1.7 %; Immature Granulocytes % (auto) 0.8 %; Lymphocytes # (auto) 1.44 K/uL (1.2-3.4); Monocytes # (auto) 0.57 K/uL (0.11-0.59); Monocytes % (auto) 4.8 %; Neutrophils # (auto) 9.63 K/uL (1.4-6.5); Neutrophils % (auto) 80.5 %; Pappenheimer Bodies 1+; Stomatocytes 1+
[2021-12-11 07:31] LABS: BUN Creatinine Ratio 36.7 (10-20); Calcium 8.4 mg/dl (8.5-10.1); Creatinine Clr Calc Pharmacy 86.6 ml/min; Est GFR (African American) 108.7 ml/min; Est GFR (Non-African American) 93.8 ml/min; Magnesium 1.8 mg/dl (1.7-2.4); Phosphorus 1.6 mg/dl (2.5-4.9)
--- NOTE | 2021-12-11 07:33 | XRay Report ---
XR chest 1V portable CLINICAL HISTORY: f/u COMPARISON STUDY: Chest CT December 07, 2021. Chest radiograph December 10, 2021. FINDINGS: Tracheostomy tube is noted. Positioning is difficult to assess by radiography but probably within normal limits. Tip of feeding tube is below lower aspect of this image but at least within the body of the stomach. There is no pneumothorax. No pleural effusion is identified. Extensive bilatera l airspace opacities are similar to prior exam. IMPRESSION: No significant change in extensive bilateral airspace opacities. ACT 112: Negative or not required by law. Electronically signed by: Jesus Roberts M.D. 12/11/2021 7:31 AM
--- NOTE | 2021-12-11 08:34 | XRay Report ---
XR KUB/Abdomen 1 view CLINICAL HISTORY: post coresafe placement. COMPARISON STUDY: 12/08/2021 TECHNIQUE: Single view of the abdomen. FINDINGS: The bowel gas pattern is within normal limits without evidence for dilatation or obstruction. Compare d to previous examination, there is no change in the position of the patient's feeding tube with its tip again in the region of the gastric antrum or duodenal bulb. There is no evidence for organomegaly or gross intra-abdominal mass. No abnormal calcifications are seen along the course of the urinary t racts bilaterally. No acute osseous pathology. IMPRESSION: 1.No acute intra-abdominal abnormality. No change in feeding tube placement. ACT 112: Negative or not required by law. Electronically signed by: El Rebolledo M.D. 12/11/2021 8:33 AM
[2021-12-11] MEDS: MIDODRINE HCL 2.5 MG TAB PO SCH ×3 (09:51→17:19)
[2021-12-11] MEDS: PANTOprazole 40 MG in SYRINGE 0 ML IV SCH (09:51)
[2021-12-11] MEDS: DOCUSATE SODIUM SYRUP 100 MG/10 ML UDC PO SCH ×2 (09:51→21:18)
[2021-12-11] MEDS: VANCOMYCIN HCL 750 MG in SODIUM CHLORIDE 0.9% 250 ML IV SCH ×2 (09:53→21:19)
[2021-12-11] MEDS: clonazePAM 0.5 MG TAB PO SCH ×2 (09:53→21:19)
--- NOTE | 2021-12-11 10:16 | History & Physical Bridge Note ---
Date of Service December 11, 2021 History & Physical Bridge Note I have the History & Physical and progress notes since the initial evaluation and in the interval since the performance of the History & Physical I have noted the following changes of clinical significance: no changes noted. Surveillance blood cultures are reportedly negative, though this has not yet been reflected in EHR. Patient is tachycardic. WBC count is 11,960. Patient is mechanically ventilated and sedated. K is 3.0. Would advise discontinuation of tube feeds and replacement of potassium. Patient is on Vancomycin at present so will defer standard pre-op Ancef. PEG tube placement to be attempted today. Supervising Physician Co-Signing Physician Notes Agree with CRISTINA Gomez as above Abd: Soft, NT, ND, +BS Continue current therapy and supportive care Blood cultures returned negative from 12/08/21 Proceed with EGD with PEG Tube placement today
--- NOTE | 2021-12-11 10:40 | Anesthesiology Consultation ---
Date of Service December 11, 2021 Assessment & Plan (1) Encounter for pre-operative examination: Per nursing report, patient's NG tube was removed and he has not received tube feeds since midnight. Plan for PEG later in the day with sedation in ICU using trach/vent and anesthesia assistance. Patient has a 6.0 shiley cuffed trach. Chart Review Chart Review: Acceptable Risk for Surgery and Patient NOT seen in Pre Admission Testing Critical are note 12/10/21: Impression: 56-year-old unvaccinated male admitted 11/03/2021 with COVID. He was intubated 11/20/2021 and tracheostomy was performed 11/26/2021 24-hour events:No acute events overnight. His mentation appears improved today and he is following commands. Patient does continue to have poor lung compliance but hypercarbia has shown somewhat improvement and pH 7.32, CO2 77 this morning. He remains afebrile overnight and leukocytosis improved, remains on broad-spectrum antibiotics. GI and consulted for PEG tube. Once PEG tube placed, we will make plans for patient to transfer to LTAC. Consults Requested none History Surgery Operation Date: 12/11/21 16:30 Proposed Procedures p Esophagogastroduodenoscopy with Gastric Tube Placement Dr Godfrey Camacho Case, DO Height/Weight Height: 5 ft 8 in Weight: 81.5 kg Allergies Allergy/AdvReac Type Severity Reaction Status Date / Time Sulfa (Sulfonamide Allergy Intermediate "tongue Verified 11/03/21 19:25 Antibiotics) turned black" Medications Home Medications Medication Instructions Recorded Confirmed Last Taken atorvastatin 20 mg tablet 20 mg PO DAILY 11/02/21 11/03/21 Unknown ondansetron 4 mg disintegrating 4 mg PO Q6H PRN #20 tab 11/02/21 11/03/21 Unknown tablet warfarin 1 mg tablet 2 mg PO [id number] 11/02/21 11/03/21 Unknown warfarin 10 mg tablet 10 mg PO DAILY 11/02/21 11/03/21 Unknown Active Medications Generic Name Dose Route Start Last Admin Trade Name Freq PRN Reason Stop Dose Admin Acetaminophen 325 mg 11/15/21 23:45 12/05/21 07:54 Acetaminophen 325 Mg Tab PO 12/15/21 23:44 325 mg Q4H PRN Administration Mild Pain Acetaminophen 500 mg 11/27/21 13:08 11/27/21 18:16 Acetaminophen Susp 500 Mg/15.6 Ml Udp PO 12/27/21 13:07 500 mg Q6H PRN Administration Pain or Fever Clonazepam 0.5 mg 12/02/21 21:00 12/11/21 09:53 Clonazepam 0.5 Mg Tab PO 01/01/22 20:59 0.5 mg BID YANDEL Administration Dextrose 25 - 50 ml 11/21/21 12:15 11/22/21 23:15 Dextrose 50% 50 Ml Syringe IV 12/21/21 12:14 25 ml UD PRN Administration Hypoglycemia Protocol Protocol Docusate Sodium 100 mg 11/28/21 21:00 12/11/21 09:51 Docusate Sodium Syrup 100 Mg/10 Ml Udc PO 12/28/21 20:59 Not Given BID YANDEL Enoxaparin Sodium 80 mg 11/25/21 12:00 12/11/21 00:27 Enoxaparin 80 Mg/0.8 Ml Syr SQ 12/25/21 11:59 80 mg Q12H YANDEL Administration Enteral Nutritional Formula 1,000 ml 12/03/21 13:00 12/08/21 18:48 Peptamen 1.5 Sid 1,000 Ml Bag NG 01/02/22 12:59 1,000 ml UD YANDEL Administration Protocol Fentanyl Citrate 50 mcg 12/06/21 08:27 12/07/21 12:09 Fentanyl Citrate 100 Mcg/2 Ml Vial IV 12/20/21 08:26 50 mcg Q2H PRN Administration Pain Pantoprazole Sodium 40 mg/ 10 mls @ 5 mls/min 11/28/21 09:00 12/11/21 09:51 Syringe IV 12/20/21 20:59 5 mls/min DAILY YANDEL Administration Vancomycin HCl 750 mg/ Sodium 265 mls @ 200 mls/hr 12/08/21 21:00 12/11/21 09:53 Chloride IV 12/15/21 20:59 200 mls/hr Q12H YANDEL Administration Insulin Aspart 0 units 11/21/21 10:30 12/11/21 08:44 Insulin Aspart Per Unit SC 12/21/21 10:29 Not Given Q4 YANDEL Midodrine 5 mg 11/30/21 12:00 12/11/21 09:51 Midodrine Hcl 2.5 Mg Tab PO 12/30/21 11:59 5 mg TID@0800,1200,1700 YANDEL Administration Past Medical History Medical History (Updated 12/11/21 @ 10:35 by Gil Dia MD) Acute hypoxemic respiratory failure due to COVID-19 ARDS (adult respiratory distress syndrome) COVID-19 Dyslipidemia Factor V Leiden carrier Warfarin History of DVT (deep vein thrombosis) Lung fibrosis Pneumomediastinum Past Surgical History Surgical History No history of previous surgery Social History Smoking Status: Never smoker Hx Alcohol Use: No Hx Substance Use: No Physical Exam Vital Signs Last Vital Signs Temp 37.3 C 12/10/21 23:00 Pulse 109 H 12/11/21 07:38 Resp 36 H 12/11/21 07:38 BP 123/61 12/10/21 22:40 Pulse Ox 97 12/11/21 07:38 Testing Laboratory Results 12/11/21 06:19 12/11/21 06:19 PT 9.8 Seconds (9.0-12.0) 11/26/21 05:46 INR 1.0 (0.9-1.1) 11/26/21 05:46 APTT 29.4 Seconds (21.0-31.0) 11/26/21 05:46 APTT Cancelled 11/26/21 05:46 Hemoglobin A1c 6.0 % (4.5-5.6) H 11/03/21 19:06 Urine Color Yellow 12/07/21 13:43 Urine Appearance Cloudy (Clear) A 12/07/21 13:43 Urine pH 5.0 (4.5-7.5) 12/07/21 13:43 Ur Specific Spurger 1.032 (1.000-1.030) H 12/07/21 13:43 Urine Protein 1+ (Negative) H 12/07/21 13:43 Urine Glucose (UA) Negative (Negative) 12/07/21 13:43 Urine Ketones Negative (Negative) 12/07/21 13:43 Urine Nitrite Negative (Negative) 12/07/21 13:43 Ur Leukocyte Esterase Negative (Negative) 12/07/21 13:43 Urine WBC (Auto) 10-30 /hpf (0-5) H 12/07/21 13:43 Urine RBC (Auto) 0-4 /hpf (0-4) 12/07/21 13:43 U Hyaline Cast (Auto) 1-5 /lpf (0-5) 12/07/21 13:43 U Epithel Cells (Auto) >30 /lpf (0-5) H 12/07/21 13:43 Urine Bacteria (Auto) 1+ (Negative) H 12/07/21 13:43 12/07/21 06:15 Aerobic Blood Culture - Preliminary Blood Coag neg staph not lugdunensis Anaerobic Blood Culture - Preliminary No growth in Anaerobic bottle after 48 hours. 12/07/21 06:22 Aerobic Blood Culture - Final Blood Coag neg staph not lugdunensis Anaerobic Blood Culture - Final Coag neg staph not lugdunensis 12/08/21 15:25 Aerobic Blood Culture - Preliminary Blood No growth in Aerobic bottle after 48 hours. Anaerobic Blood Culture - Preliminary No growth in Anaerobic bottle after 48 hours. 12/08/21 15:43 Aerobic Blood Culture - Preliminary Blood No growth in Aerobic bottle after 48 hours. Anaerobic Blood Culture - Preliminary No growth in Anaerobic bottle after 48 hours. 12/08/21 20:00 Gram Stain - Final Sputum,Vent Suction Sputum Culture - Preliminary Light normal minnie present, final report to follow. 12/07/21 13:43 Urine Culture - Final Urine,Clean Catch No growth - less than 1,000 colonies/mL. 12/07/21 10:36 Fungal Smear - Final Blood 12/01/21 Unknown Gram Stain - Final Sputum,Vent Suction Sputum Culture - Final Scant normal minnie. 11/27/21 13:45 Aerobic Blood Culture - Final Blood No growth in Aerobic bottle after 5 days. Anaerobic Blood Culture - Final No growth in Anaerobic bottle after 5 days. 11/27/21 13:45 Aerobic Blood Culture - Final Blood No growth in Aerobic bottle after 5 days. Anaerobic Blood Culture - Final No growth in Anaerobic bottle after 5 days. 11/27/21 13:04 Urine Culture - Final Urine,Indwelling Cath No growth - less than 1,000 colonies/mL. 11/27/21 13:04 Gram Stain - Final Sputum,Vent Suction Sputum Culture - Final Moderate normal minnie. 11/08/21 10:13 Aerobic Blood Culture - Final Blood No growth in Aerobic bottle after 5 days. Anaerobic Blood Culture - Final No growth in Anaerobic bottle after 5 days. 11/08/21 10:16 Aerobic Blood Culture - Final Blood No growth in Aerobic bottle after 5 days. Anaerobic Blood Culture - Final No growth in Anaerobic bottle after 5 days. 12/11/21 12/11/21 12/11/21 08:09 04:23 00:20 POC Glucose 104 H 101 H 95 Electrocardiogram Date: 12/02/21 DICTATED BY:Axel Martinez MD Test Reason : Blood Pressure : / mmHG Vent. Rate : 126 BPM Atrial Rate : 126 BPM P-R Int : 122 ms QRS Dur : 084 ms QT Int : 292 ms P-R-T Axes : 055 005 024 degrees QTc Int : 422 ms Sinus tachycardia Biatrial enlargement Abnormal ECG When compared with ECG of 01-DEC-2021 10:47, No significant change was found Confirmed by Axel Martinez ([id number]) on 12/02/2021 12:10:13 PM Chest X-Ray Date: 12/11/21 XR chest 1V portable CLINICAL HISTORY: f/u COMPARISON STUDY: Chest CT December 07, 2021. Chest radiograph December 10, 2021. FINDINGS: Tracheostomy tube is noted. Positioning is difficult to assess by radiography but probably within normal limits. Tip of feeding tube is below lower aspect of this image but at least within the body of the stomach. There is no pneumothorax. No pleural effusion is identified. Extensive bilateral airspace opacities are similar to prior exam. IMPRESSION: No significant change in extensive bilateral airspace opacities. Echocardiogram Date: 12/09/21 LV is normal in size. LV systolic function is normal. EF 65-70% Flattened septum is consistent with RV pressure overload. RV is moderately dilated. RV systolic function is mildly reduced. Mild to moderate TR. RV systolic pressure is elevated at >60mmHg.
[2021-12-11] MEDS ORDERED: POTASSIUM CHLORIDE 20 MEQ/15 ML UDC NG ONE (10:45)
[2021-12-11] MEDS ORDERED: POTASSIUM PHOSPHATE 21 MMOL in SODIUM CHLORIDE 0.9% 500 ML IV ONE (11:00)
--- NOTE | 2021-12-11 11:46 | Pharmacy Report ---
Pharmacy Vanc AUC Short Note - Date of Service December 11, 2021 - Assessment & Plan Assessment 56 year old M receiving vancomycin for treatment of coag neg staph bacteremia. Sensitives reported, oxacillin resistant, sensitive to vancomycin. Continuing vancomcyin for now Day #5 of antimicrobial therapy. Plan Vancomycin * AUC/GLENNA is the preferred PK/PD target for vancomycin * AUC guided dosing is effective and associated with decreased risk of nephrotoxicity compared to traditional trough targets * Trough level of 18.3 mcg/mL is predicted to achieve target AUC/GLENNA of 400-600 mg/L.hr and may be associated with a 9 % risk of nephrotoxicity * Continue dose of 750 mg IV every 12 hours * Additional trough in 3-4 days or as indicated with renal function changes Pharmacy will continue to follow and will adjust dose/frequency as necessary. Thank you.
[2021-12-11] MEDS ORDERED: ePHEDrine sulfate 50 MG/ML SYR ONE (16:07)
[2021-12-11] MEDS ORDERED: PROPOFOL IV EMULSION 10 MG/ML 20 ML VIAL IV ONE (16:07)
[2021-12-11] MEDS ORDERED: LIDOCAINE 2% 2 ML VIAL/AMP(20MG/ML) INFIL ONE (16:07)
--- NOTE | 2021-12-11 17:24 | GI REPORT ---
Patient Name: Fermin Joe Procedure Date: 12/11/2021 3:58 PM Date of : 1965 Admit Type: Inpatient Age: 56 Gender: Male Attending MD: Tony Donahue DO Procedure: Upper GI endoscopy Providers: Tony Donahue DO Referring MD: Mira James Do Indications: Place PEG Medicines: Monitored Anesthesia Care Complications: No immediate complications. Estimated Blood Loss: Estimated blood loss: none. Procedure: Pre-Anesthesia Assessment: - Prior to the procedure, a History and Physical was performed, and patient medications and allergies were reviewed. The patient's tolerance of previous anesthesia was also reviewed. The risks and benefits of the procedure and the sedation options and risks were discussed with the patient. All questions were answered, and informed consent was obtained. Prior Anticoagulants: The patient has taken Lovenox (enoxaparin), last dose was 1 day prior to procedure. ASA Grade Assessment: IV - A patient with severe systemic disease that is a constant threat to life. After reviewing the risks and benefits, the patient was deemed in satisfactory condition to undergo the procedure. After obtaining informed consent, the endoscope was passed under direct vision. Throughout the procedure, the patient's blood pressure, pulse, and oxygen saturations were monitored continuously. The Endoscope was introduced through the mouth, and advanced to the third part of duodenum. The upper GI endoscopy was accomplished without difficulty. The patient tolerated the procedure well. Findings: The esophagus was normal. Placement of an externally removable PEG with no T-fasteners was successfully completed. The external bumper was at the 2.0 cm marking on the tube. The examined duodenum was normal. Impression: - Normal esophagus. - Normal examined duodenum. - An externally removable PEG placement was successfully completed. - No specimens collected. Recommendation: - Please follow the post-PEG recommendations including: Nutrition consult for formula and volume, change dressing on top of bumper daily, start using PEG today and antibiotic ointment to site. - Continue present medications. - Refer to a dietitian today. Tony Donahue DO 12/11/2021 5:24:03 PM This report has been signed electronically. Note Initiated On: 12/11/2021 3:58 PM Number of Addenda: 0 I attest to the content of the Intraoperative Record and orders documented therein, exceptions below {[id number]}
--- NOTE | 2021-12-11 17:27 | Anesthesiology Progress Note ---
Date of Service December 11, 2021 Anesthesia Post Procedure Vital Signs Vital Signs: Temp Pulse Pulse Resp BP BP Pulse Ox 12/11/21 16:20 37.2 C 110 H 26 H 133/83 96 12/11/21 16:00 37.3 C 108 H 20 146/76 H 93 12/11/21 15:55 117 H 29 H 144/75 H 93 12/11/21 15:50 37.3 C 110 H 26 H 144/75 H 92 12/11/21 15:49 115 H 39 H 95 12/11/21 15:30 37.3 C 106 H 34 H 147/78 H 92 12/11/21 15:10 37.3 C 105 H 33 H 151/77 H 93 12/11/21 15:00 37.3 C 107 H 25 H 149/82 H 87 L 12/11/21 14:50 37.3 C 118 H 30 H 132/72 91 12/11/21 14:01 109 H 30 H 148/76 H 89 L 12/11/21 14:00 37.4 C 105 H 40 H 87 L 12/11/21 13:50 37.3 C 102 H 33 H 142/77 H 94 12/11/21 13:40 37.4 C 106 H 30 H 141/77 H 95 12/11/21 13:20 37.3 C 103 H 34 H 146/79 H 93 12/11/21 13:14 109 H 12/11/21 13:00 37.3 C 101 H 34 H 93 12/11/21 11:00 37.3 C 115 H 43 H 140/82 12/11/21 10:54 90 12/11/21 10:36 113 H 39 H 89 L 12/11/21 10:00 37.4 C 110 H 45 H 152/77 H 87 L 12/11/21 09:00 37.3 C 109 H 36 H 144/74 H 90 12/11/21 08:00 37.3 C 108 H 37 H 155/87 H 91 12/11/21 07:38 109 H 36 H 97 12/11/21 07:00 37.3 C 102 H 33 H 158/75 H 12/11/21 03:30 120 H 33 H 99 12/11/21 00:14 114 H 12/10/21 23:58 85 37 H 100 12/10/21 23:00 37.3 C 93 H 32 H 12/10/21 22:40 37.3 C 89 35 H 123/61 12/10/21 22:30 37.2 C 106 H 31 H 118/67 98 12/10/21 22:00 37.1 C 95 H 34 H 136/67 12/10/21 21:50 37.1 C 96 H 27 H 138/62 12/10/21 21:40 37.2 C 105 H 25 H 133/67 12/10/21 21:30 37.1 C 92 H 36 H 142/71 H 95 12/10/21 21:00 37.1 C 95 H 35 H 131/65 95 12/10/21 20:50 37.1 C 99 H 39 H 123/65 93 12/10/21 20:42 120 H 38 H 100 12/10/21 20:40 37.1 C 106 H 41 H 135/70 97 12/10/21 20:30 37.1 C 105 H 45 H 137/71 96 12/10/21 20:20 37.2 C 99 H 34 H 136/70 12/10/21 20:10 37.2 C 96 H 33 H 137/67 12/10/21 20:00 37.2 C 95 H 33 H 136/69 12/10/21 19:50 37.2 C 105 H 31 H 129/67 12/10/21 19:40 37.2 C 95 H 34 H 131/66 12/10/21 19:30 37.1 C 98 H 34 H 136/70 99 12/10/21 19:22 99 H 12/10/21 19:20 37.1 C 98 H 25 H 127/68 12/10/21 19:10 37.0 C 88 32 H 139/72 98 12/10/21 19:00 37.0 C 104 H 32 H 131/70 100 Pain Intensity Left Leg: Pain Intensity: 6 Transfer of Care Handoff Completed per policy Notes Mental Status: alert / awake / arousable Patient Amnestic to Procedure: Yes Nausea / Vomiting: adequately controlled Pain: adequately controlled Airway Patency, RR, SpO2: see Notes below BP & HR: stable & adequate Hydration State: stable & adequate Anesthetic Complications: no major complications apparent Notes: patient remains on ventilator, as preop.
--- NOTE | 2021-12-11 17:37 | Hospitalist Progress Note ---
Date of Service December 11, 2021 Assessment & Plan (1) Acute respiratory failure: (2) ARDS (adult respiratory distress syndrome): (3) 2019 novel coronavirus-infected pneumonia (NCIP): Plan: Respiratory failure 2/2 ARDS with fibrotic changes. Pneumomediastinum has resolved. Intubated on 11/20/21 --> 11/26/2021 tracheostomy status, on mechanical ventilation being managed per critical care team. Remains on ventilator in ICU, wean as tolerated. Completed dexamethasone. (4) Bacteremia: Plan: Continues on Vanc and Ceftriaxone. Staph species growing in blood (collected 12/07), not MRSA. 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 Cont Lovenox. Plan: Plan for LTAC after PEG tube placed. Mira James DO [facility] Hospitalist Admission and Anticipated Discharge Date Admission Date: November 03, 2021 Subjective 56 yo M admitted for acute respiratory failure 2/2 covid pneumonia. S/p trach PEG placement today appears ok but ?confused, possibly from sedation. Review of Systems Review of Systems: Cannot obtain ROS as patient is unable to communicate 2/2 trach and mechanical ventilation. Physical Exam Physical Exam: CONSTITUTIONAL: WNWD, vitals as above, generally NAD EYES: normal conjunctivae, no scleral icterus ENT: external ear and nose normal NECK: trachea midline, trach in place. RESPIRATORY: coarse rhonchi throughout, no rales or wheezes, vented. CARDIOVASCULAR: regular rate and rhythm, S1 and 2 heard without murmurs, gallops or rubs, no JVD, 3+ pitting edema on the LLE, 1+ pitting edema on the RLE CHEST: inspection of chest was normal GASTROINTESTINAL: soft, nontender, ND, no guarding, PEG site covered with dressing that is clean and dry. MUSCULOSKELETAL: generalized weakness, moves both arms symmetrically, limited ability to assess patient strength as he is not able to follow commands. SKIN: warm and dry NEUROLOGIC: CN 2-12 grossly intact, cannot speak 2/2 trach and vent, eyes open. Cannot assess orientation. Results & Data Results & Data ([facility]) Vital Signs (Past 12 Hours) Vital Signs Temp Pulse Pulse Resp BP BP Pulse Ox 12/11/21 16:20 37.2 C 110 H 26 H 133/83 96 12/11/21 16:00 37.3 C 108 H 20 146/76 H 93 12/11/21 15:55 117 H 29 H 144/75 H 93 12/11/21 15:50 37.3 C 110 H 26 H 144/75 H 92 12/11/21 15:49 115 H 39 H 95 12/11/21 15:30 37.3 C 106 H 34 H 147/78 H 92 12/11/21 15:10 37.3 C 105 H 33 H 151/77 H 93 12/11/21 15:00 37.3 C 107 H 25 H 149/82 H 87 L 12/11/21 14:50 37.3 C 118 H 30 H 132/72 91 12/11/21 14:01 109 H 30 H 148/76 H 89 L 12/11/21 14:00 37.4 C 105 H 40 H 87 L 12/11/21 13:50 37.3 C 102 H 33 H 142/77 H 94 12/11/21 13:40 37.4 C 106 H 30 H 141/77 H 95 12/11/21 13:20 37.3 C 103 H 34 H 146/79 H 93 12/11/21 13:14 109 H 12/11/21 13:00 37.3 C 101 H 34 H 93 12/11/21 11:00 37.3 C 115 H 43 H 140/82 12/11/21 10:54 90 12/11/21 10:36 113 H 39 H 89 L 12/11/21 10:00 37.4 C 110 H 45 H 152/77 H 87 L 12/11/21 09:00 37.3 C 109 H 36 H 144/74 H 90 12/11/21 08:00 37.3 C 108 H 37 H 155/87 H 91 12/11/21 07:38 109 H 36 H 97 12/11/21 07:00 37.3 C 102 H 33 H 158/75 H Laboratory Results Short CBC 12/11/21 Range/Units 06:19 WBC 11.96 H (4.8-10.8) K/uL Hgb 9.0 L (14.0-18.0) g/dL Hct 29.8 L (42-52) % Plt Count 337 (130-400) K/uL BMP 12/11/21 06:19 Sodium 149 H Potassium 3.0 L Chloride 102 Carbon Dioxide 41 H* BUN 33 H Creatinine 0.90 Glucose 100 H Calcium 8.4 L Diagnostic Findings KUB X-Ray 12/11/21 05:57 XR KUB/Abdomen 1 view CLINICAL HISTORY: post coresafe placement. COMPARISON STUDY: 12/08/2021 TECHNIQUE: Single view of the abdomen. FINDINGS: The bowel gas pattern is within normal limits without evidence for dilatation or obstruction. Compared to previous examination, there is no change in the position of the patient's feeding tube with its tip again in the region of the gastric antrum or duodenal bulb. There is no evidence for organomegaly or gross intra-abdominal mass. No abnormal calcifications are seen along the course of the urinary tracts bilaterally. No acute osseous pathology. IMPRESSION: 1.No acute intra-abdominal abnormality. No change in feeding tube placement. ACT 112: Negative or not required by law. Electronically signed by: El Rebolledo M.D. 12/11/2021 8:33 AM Chest X-Ray 12/11/21 07:00 XR chest 1V portable CLINICAL HISTORY: f/u COMPARISON STUDY: Chest CT December 07, 2021. Chest radiograph December 10, 2021. FINDINGS: Tracheostomy tube is noted. Positioning is difficult to assess by radiography but probably within normal limits. Tip of feeding tube is below lower aspect of this image but at least within the body of the stomach. There is no pneumothorax. No pleural effusion is identified. Extensive bilateral airspace opacities are similar to prior exam. IMPRESSION: No significant change in extensive bilateral airspace opacities. ACT 112: Negative or not required by law. Electronically signed by: Jesus Roberts M.D. 12/11/2021 7:31 AM Medications Administered Current Inpatient Medications Acetaminophen (Acetaminophen 325 Mg Tab) 325 mg PO Q4H PRN PRN Reason: Mild Pain Stop: 12/15/21 23:44 Last Admin: 12/05/21 07:54 Dose: 325 mg Documented by: Acetaminophen (Acetaminophen Susp 500 Mg/15.6 Ml Udp) 500 mg PO Q6H PRN PRN Reason: Pain or Fever Stop: 12/27/21 13:07 Last Admin: 11/27/21 18:16 Dose: 500 mg Documented by: Clonazepam (Clonazepam 0.5 Mg Tab) 0.5 mg PO BID YANDEL Stop: 01/01/22 20:59 Last Admin: 12/11/21 09:53 Dose: 0.5 mg Documented by: Dextrose (Dextrose 50% 50 Ml Syringe) 25 - 50 ml IV UD PRN; Protocol PRN Reason: Hypoglycemia Protocol Stop: 12/21/21 12:14 Last Admin: 11/22/21 23:15 Dose: 25 ml Documented by: Docusate Sodium (Docusate Sodium Syrup 100 Mg/10 Ml Udc) 100 mg PO BID YANDEL Stop: 12/28/21 20:59 Last Admin: 12/11/21 09:51 Dose: Not Given Documented by: Enoxaparin Sodium (Enoxaparin 80 Mg/0.8 Ml Syr) 80 mg SQ Q12H [facility] Stop: 12/25/21 11:59 Last Admin: 12/11/21 11:16 Dose: Not Given Documented by: Enteral Nutritional Formula (Peptamen 1.5 Sid 1,000 Ml Bag) 1,000 ml NG UD [facility]; Protocol Stop: 01/02/22 12:59 Last Admin: 12/08/21 18:48 Dose: 1,000 ml Documented by: Fentanyl Citrate (Fentanyl Citrate 100 Mcg/2 Ml Vial) 50 mcg IV Q2H PRN PRN Reason: Pain Stop: 12/20/21 08:26 Last Admin: 12/07/21 12:09 Dose: 50 mcg Documented by: Glucagon (Glucagon For Inj 1 Mg Vial) 1 mg IM UD PRN; Protocol PRN Reason: Hypoglycemia Protocol Stop: 12/21/21 12:14 Glucose (Glucose 40% Gel 15 Gm Tube) 15 - 30 gm PO UD PRN; Protocol PRN Reason: Hypoglycemia Protocol Stop: 12/21/21 12:14 Glucose (Glucose 10 Tabs/Tube) 4 - 8 tabs PO UD PRN; Protocol PRN Reason: Hypoglycemia Protocol Stop: 12/21/21 12:14 Pantoprazole Sodium 40 mg/ (Syringe) 10 mls @ 5 mls/min IV DAILY YANDEL Stop: 12/20/21 20:59 Last Admin: 12/11/21 09:51 Dose: 5 mls/min Documented by: Vancomycin HCl 750 mg/ Sodium (Chloride) 265 mls @ 200 mls/hr IV Q12H YANDEL Stop: 12/15/21 20:59 Last Infusion: 12/11/21 12:33 Dose: Infused Documented by: Insulin Aspart (Insulin Aspart Per Unit) 0 units SC Q4 [facility] Stop: 12/21/21 10:29 Last Admin: 12/11/21 15:38 Dose: Not Given Documented by: Midodrine (Midodrine Hcl 2.5 Mg Tab) 5 mg PO TID@0800,1200,1700 [facility] Stop: 12/30/21 11:59 Last Admin: 12/11/21 17:19 Dose: 5 mg Documented by: Miscellaneous (Carbohydrates For Hypoglycemia ) 15 - 30 gm PO PRN PRN PRN Reason: Hypoglycemia Treatment Stop: 12/21/21 12:14 Miscellaneous Information (Pharmacy Glycemic Mgmt Consult) 1 ea N/A UD PRN PRN Reason: Consult Stop: 12/21/21 12:09 Miscellaneous Information (Vancomycin Consult Active) 1 ea N/A UD PRN PRN Reason: Consult Stop: 01/06/22 05:48
--- NOTE | 2021-12-11 17:42 | Critical Care Progress Note ---
Date of Service December 11, 2021 Assessment & Plan (1) Acute hypoxemic respiratory failure due to COVID-19: (2) 2019 novel coronavirus-infected pneumonia (NCIP): (3) Factor V Leiden carrier: (4) Positive blood cultures: (5) Leukocytosis: (6) DVT (deep venous thrombosis): (7) ARDS (adult respiratory distress syndrome): (8) Lung fibrosis: Plan: Impression: 56-year-old unvaccinated male admitted 11/03/2021 with COVID. He was intubated 11/20/2021 and tracheostomy was performed 11/26/2021 24-hour events: PEG completed today. Recommendations: Neuro: Currently on Klonopin 0.5 mg twice a day as well as as needed fentanyl. Continue to try and mobilize as tolerated. PT and OT ordered. Cardiovascular: Hypotension resolved. Off pressors now. Continue oral midodrine for now, wean as tolerated. Respiratory: Respiratory failure secondary to ARDS with significant fibrotic changes. Pneumomediastinum has resolved. Continue to wean ventilator as tolerated. Continue attempts to transition to pressure support ventilation as tolerated Renal: Kidney function back to normal. Electrolyte replacement as needed. Try and keep on slight negative balance. He does have evidence of peripheral edema. Echo showed collapsibility of IVC suggestive of intravascular volume depletion. Acid-base status does demonstrate significant respiratory acidosis. Will place on D5 quarter normal saline with 20 of K for now. We will need to add free water once were okay to use the PEG tube. : link catheter ID: Coag negative staph in blood 3 out of 4 bottles. Day #5 vancomycin. White count and fever curve are better. Will likely need 7 days of therapy. Surveillance cultures negative Heme: -History of factor V Leiden with acute DVT. On therapeutic Lovenox. Mild anemia. No signs of bleeding. Restart lovenox when ok with GI. GI: discussed PEG with , she agrees. GI consult. Tube feeds restarted yesterday. Will discuss with GI schedule for PEG tube placement as he will need to be n.p.o. at midnight prior to this procedure. On Protonix Endo: Glycemic control per protocol. - Prophylaxis VTE: Lovenox therapeutic GI: Protonix once daily Lines:Peripherals, lIJ discontinued 11/28, right radial 11/28, positive Link replaced 12/05/2021 for retention - Continue use of link catheter and peripheral IV lines Patient's [phone]. would like the patient transferred to LTAC in [place] as she has family there. he is appropriate for transfer to LTAC CRITICAL CARE TIME - I have personally spent 38 minutes of critical care time in the direct management of this patient. This is a life/limb threatening event. This includes time spent evaluating patient, direct bedside care, chart review, placing orders, interpretation of diagnostic studies, discussion with consultants, patient, and family members, as well as other required patient management acti vities. This time is exclusive of all separately billable procedures, and teaching time and separate from and in addition to any other critical care service time. Please note the above document was generated using voice recognition software. It may contain grammatical, syntax or spelling errors. Admission and Anticipated Discharge Date Admission Date: November 03, 2021 Subjective Trached. Awake and following commands Review of Systems Review of Systems: All systems reviewed & are unremarkable except as noted in Subjective Physical Exam Neck: trachea midline, no thyromegaly Respiratory: normal respiratory effort, lungs clear to auscultation + labored breathing, + uses accessory muscles and + tachypneic Auscultation: + crackles; no wheezes Cardiovascular: RRR, no murmur, no edema Gastrointestinal (Abdomen): normal bowel sounds, soft, nontender, no hepatosplenomegaly Musculoskeletal: Extremities: extremities normal to inspection Skin: no rashes, warm and dry Lymphatic: no cervical lymphadenopathy Results & Data Results & Data ([facility] [place]) Vital Signs (Past 12 Hours) Vital Signs Temp Pulse Pulse Resp BP BP Pulse Ox 12/11/21 16:20 37.2 C 110 H 26 H 133/83 96 12/11/21 16:00 37.3 C 108 H 20 146/76 H 93 12/11/21 15:55 117 H 29 H 144/75 H 93 12/11/21 15:50 37.3 C 110 H 26 H 144/75 H 92 12/11/21 15:49 115 H 39 H 95 12/11/21 15:30 37.3 C 106 H 34 H 147/78 H 92 12/11/21 15:10 37.3 C 105 H 33 H 151/77 H 93 12/11/21 15:00 37.3 C 107 H 25 H 149/82 H 87 L 12/11/21 14:50 37.3 C 118 H 30 H 132/72 91 12/11/21 14:01 109 H 30 H 148/76 H 89 L 12/11/21 14:00 37.4 C 105 H 40 H 87 L 12/11/21 13:50 37.3 C 102 H 33 H 142/77 H 94 12/11/21 13:40 37.4 C 106 H 30 H 141/77 H 95 12/11/21 13:20 37.3 C 103 H 34 H 146/79 H 93 12/11/21 13:14 109 H 12/11/21 13:00 37.3 C 101 H 34 H 93 12/11/21 11:00 37.3 C 115 H 43 H 140/82 12/11/21 10:54 90 12/11/21 10:36 113 H 39 H 89 L 12/11/21 10:00 37.4 C 110 H 45 H 152/77 H 87 L 12/11/21 09:00 37.3 C 109 H 36 H 144/74 H 90 12/11/21 08:00 37.3 C 108 H 37 H 155/87 H 91 12/11/21 07:38 109 H 36 H 97 12/11/21 07:00 37.3 C 102 H 33 H 158/75 H Critical Care Results & Data Vital Signs (Past 12 Hours) Vital Signs Temp Pulse Pulse Resp BP BP Pulse Ox 12/11/21 17:30 37.2 C 121 H 34 H 92 12/11/21 17:15 37.2 C 116 H 35 H 97 12/11/21 17:14 37.2 C 115 H 32 H 124/79 97 12/11/21 17:10 37.3 C 99 H 34 H 118/68 82 L 12/11/21 17:07 37.3 C 87 34 H 119/64 81 L 12/11/21 17:06 37.3 C 102 H 32 H 118/64 79 L 12/11/21 17:04 37.3 C 105 H 32 H 116/61 76 L 12/11/21 17:00 37.3 C 110 H 32 H 82/45 L 12/11/21 16:45 37.3 C 106 H 34 H 95 12/11/21 16:30 37.2 C 105 H 33 H 144/82 H 96 12/11/21 16:20 37.2 C 110 H 26 H 133/83 96 12/11/21 16:00 37.3 C 108 H 20 146/76 H 93 12/11/21 15:55 117 H 29 H 144/75 H 93 12/11/21 15:50 37.3 C 110 H 26 H 144/75 H 92 12/11/21 15:49 115 H 39 H 95 12/11/21 15:30 37.3 C 106 H 34 H 147/78 H 92 12/11/21 15:10 37.3 C 105 H 33 H 151/77 H 93 12/11/21 15:00 37.3 C 107 H 25 H 149/82 H 87 L 12/11/21 14:50 37.3 C 118 H 30 H 132/72 91 12/11/21 14:01 109 H 30 H 148/76 H 89 L 12/11/21 14:00 37.4 C 105 H 40 H 87 L 12/11/21 13:50 37.3 C 102 H 33 H 142/77 H 94 12/11/21 13:40 37.4 C 106 H 30 H 141/77 H 95 12/11/21 13:20 37.3 C 103 H 34 H 146/79 H 93 12/11/21 13:14 109 H 12/11/21 13:00 37.3 C 101 H 34 H 93 12/11/21 11:00 37.3 C 115 H 43 H 140/82 12/11/21 10:54 90 12/11/21 10:36 113 H 39 H 89 L 12/11/21 10:00 37.4 C 110 H 45 H 152/77 H 87 L 12/11/21 09:00 37.3 C 109 H 36 H 144/74 H 90 12/11/21 08:00 37.3 C 108 H 37 H 155/87 H 91 12/11/21 07:38 109 H 36 H 97 12/11/21 07:00 37.3 C 102 H 33 H 158/75 H Lab & Micro Results (Past 24 Hours) RBC 3.12 M/uL (4.7-6.1) L 12/11/21 WBC 11.96 K/uL (4.8-10.8) H 01/13/22 Hgb 9.0 g/dL (14.0-18.0) L 12/11/21 Hct 29.8 % (42-52) L 12/11/21 MCV 95.5 fL (80-100) 12/11/21 MCH 28.8 pg (25-34) 12/11/21 MCHC 30.2 g/dL (32-36) L 12/11/21 RDW Standard Deviation 52.6 fL (36.4-46.3) H 12/11/21 RDW Coefficient of Variation 15.1 % (11.5-14.5) H 12/11/21 Plt Count 337 K/uL (130-400) 12/11/21 MPV 9.9 fL (7.4-10.4) 12/11/21 Neutrophils (%) (Auto) 80.5 % 12/11/21 Lymphocytes (%) (Auto) 12.0 % 12/11/21 Monocytes # (Auto) 0.57 K/uL (0.11-0.59) 12/11/21 Eosinophils # (Auto) 0.20 K/uL (0-0.5) 12/11/21 Immature Granulocyte % (Auto) 0.8 % 12/11/21 Neutrophils # (Auto) 9.63 K/uL (1.4-6.5) H 12/11/21 Lymphocytes # (Auto) 1.44 K/uL (1.2-3.4) 12/11/21 Monocytes # (Auto) 0.57 K/uL (0.11-0.59) 12/11/21 Eosinophils # (Auto) 0.20 K/uL (0-0.5) 12/11/21 Basophils # (Auto) 0.02 K/uL (0-0.2) 12/11/21 Immature Granulocyte # (Auto) 0.10 K/uL (0.00-0.02) H 12/11/21 Pappenheimer Bodies 1+ 12/11/21 Stomatocytes 1+ 12/11/21 Na 149 mmol/L (136-145) H 12/11/21 K 3.0 mmol/L (3.5-5.1) L 12/11/21 Cl 102 mmol/L (98-107) 12/11/21 CO2 41 mmol/L (21-32) H* 12/11/21 Anion Gap 6 (3-11) 12/11/21 BUN 33 mg/dl (6-23) H 12/11/21 Creatinine 0.90 mg/dl (0.6-1.4) 12/11/21 Estimated GFR ( Amer) 108.7 ml/min 12/11/21 Estimated GFR (Non-Af Amer) 93.8 ml/min 12/11/21 BUN/Creatinine Ratio 36.7 (10-20) H 12/11/21 Glu 100 mg/dl (70-99) H 12/11/21 Ca 8.4 mg/dl (8.5-10.1) L 12/11/21 Phosphorus Level 1.6 mg/dl (2.5-4.9) L 12/11/21 Mg 1.8 mg/dl (1.7-2.4) 12/11/21 06:19 12/11/21 Calcium Level 8.4 mg/dl (8.5-10.1) L 12/11/21 06:19 12/11/21 Francisco Test Pass 12/11/21 04:26 12/11/21 Microbiology 12/08/21 20:00 Gram Stain - Final Sputum,Vent Suction Sputum Culture - Final Light normal minnie. 12/07/21 06:15 Aerobic Blood Culture - Preliminary Blood Coag neg staph not lugdunensis Anaerobic Blood Culture - Preliminary No growth in Anaerobic bottle after 48 hours. 12/07/21 06:22 Aerobic Blood Culture - Final Blood Coag neg staph not lugdunensis Anaerobic Blood Culture - Final Coag neg staph not lugdunensis 12/08/21 15:25 Aerobic Blood Culture - Preliminary Blood No growth in Aerobic bottle after 48 hours. Anaerobic Blood Culture - Preliminary No growth in Anaerobic bottle after 48 hours. 12/08/21 15:43 Aerobic Blood Culture - Preliminary Blood No growth in Aerobic bottle after 48 hours. Anaerobic Blood Culture - Preliminary No growth in Anaerobic bottle after 48 hours. Diagnostic Findings (Past 24 Hours) KUB X-Ray 12/11/21 05:57 XR KUB/Abdomen 1 view CLINICAL HISTORY: post coresafe placement. COMPARISON STUDY: 12/08/2021 TECHNIQUE: Single view of the abdomen. FINDINGS: The bowel gas pattern is within normal limits without evidence for dilatation or obstruction. Compared to previous examination, there is no change in the position of the patient's feeding tube with its tip again in the region of the gastric antrum or duodenal bulb. There is no evidence for organomegaly or gross intra-abdominal mass. No abnormal calcifications are seen along the course of the urinary tracts bilaterally. No acute osseous pathology. IMPRESSION: 1.No acute intra-abdominal abnormality. No change in feeding tube placement. ACT 112: Negative or not required by law. Electronically signed by: El Rebolldeo M.D. 12/11/2021 8:33 AM Chest X-Ray 12/11/21 07:00 XR chest 1V portable CLINICAL HISTORY: f/u COMPARISON STUDY: Chest CT December 07, 2021. Chest radiograph December 10, 2021. FINDINGS: Tracheostomy tube is noted. Positioning is difficult to assess by radiography but probably within normal limits. Tip of feeding tube is below lower aspect of this image but at least within the body of the stomach. There is no pneumothorax. No pleural effusion is identified. Extensive bilateral airspace opacities are similar to prior exam. IMPRESSION: No significant change in extensive bilateral airspace opacities. ACT 112: Negative or not required by law. Electronically signed by: Jesus Roberts M.D. 12/11/2021 7:31 AM I & O Totals 24 Hours 12/10/21 12/11/21 12/12/21 06:59 06:59 06:59 Intake Total 1220.130 / 1220.130 795 / 795 265 / 265 Output Total 2201 / 2201 3197 / 3197 325 / 325 Balance -980.870 / -980.870 -2402 / -2402 -60 / -60 Cumulative 11/03/21 14:22 thru 12/11/21 14:49 Intake Total 95457.014 Output Total 63276 Balance -4814.986 RT Ventilator Mngmt (Last Documented) Ventilator Ordered Settings Ventilator Support Mode Pressure Control 12/11/21 16:00 Respiratory Rate 34 12/11/21 17:30 Ventilator Tidal Volume 450 12/11/21 16:00 Setting Minute Ventilation 15.3 12/11/21 15:49 Ventilator Positive Pressure 20 12/10/21 12:00 Support Setting Positive End Expiratory 8 12/11/21 16:00 Pressure Fraction of Inspired Oxygen 60 12/11/21 15:49 Peak Inspiratory Flow 43 11/27/21 16:27 Inspiratory Pressure 28 12/11/21 15:49 Machine Comment increased to 60% 12/11/21 10:36 Ventilator - PT Measurements Respiratory Rate 34 Exhaled Tidal Volume 442 Minute Ventilation 15.3 Peak Inspiratory Airway 42 Pressure Plateau Pressure 30.4 Respiratory Cycle Inspiratory: 1:1.7 Expiratory Ratio Inspiratory Phase Time 0.60 End-Tidal CO2 52 Static Lung Compliance 19.73 Dynamic Lung Compliance 13.00 Normal Static Lung Compliance 43.00 Patient Measurements Comment at bedside with RT to assess trach site Coding Level of Care Code Critical Care 1st 30-74 mins Diagnoses Acute hypoxemic respiratory failure due to COVID-19 U07.1; J96.01 2019 novel coronavirus-infected pneumonia (NCIP) U07.1; J12.82 Factor V Leiden carrier D68.51 Positive blood cultures R78.81 Leukocytosis D72.829 DVT (deep venous thrombosis) I82.409 ARDS (adult respiratory distress syndrome) J80 Lung fibrosis J84.10
[2021-12-11] MEDS: ICU ELECTROLYTE REPLACEMENT PROTOCOL SCH (18:00)
[2021-12-11] MEDS: D5W AND 1/4NSS + 20MEQ KCL 20 MEQ/1,000 ML BAG IV SCH (18:05)
[2021-12-12] MEDS: INSULIN ASPART PER UNIT SC SCH ×6 (00:16→20:33)
[2021-12-12] MEDS: ENOXAPARIN 80 MG/0.8 ML SYR SQ SCH ×2 (00:18→12:40)
[2021-12-12 04:18] LABS: iSTAT Art Bld Gas pCO2 Correct 77 mmHg (35-46); iSTAT Art Bld Gas pH Corrected 7.344 (7.35-7.45); iSTAT Arterial Blood Gas HCO3 42 meg/L (19-24); iSTAT Arterial Blood Gas pCO2 77 mmHg (35-46); iSTAT Arterial Blood Gas pH 7.35 (7.35-7.45); iSTAT Arterial Blood Gas pO2 68 mmHg (80-95); iSTAT Arterial Blood Gas pO2 C 69; iSTAT Carbon Dioxide > 40 mmol/L (24-31); iSTAT FiO2 60 %; iSTAT Hematocrit 24 % (42-52); iSTAT Hemoglobin 8.2 g/dl (14.0-18.0); iSTAT Potassium 3.1 mmol/L (3.3-5.0); iSTAT Site R Radial; iSTAT Sodium 147 mmol/L (135-144)
[2021-12-12 05:05] LABS: Basophils # (auto) 0.01 K/uL (0-0.2); Basophils % (auto) 0.1 %; Eosinophils # (auto) 0.18 K/uL (0-0.5); Eosinophils % (auto) 1.7 %; Hematocrit (blood only) 27.4 % (42-52); Hemoglobin 8.2 g/dL (14.0-18.0); Immature Granulocytes # (auto) 0.04 K/uL (0.00-0.02); Immature Granulocytes % (auto) 0.4 %; Lymphocytes # (auto) 1.31 K/uL (1.2-3.4); Lymphocytes % (auto) 12.4 %; Mean Corpuscular Hemoglobin 28.8 pg (25-34); Mean Corpuscular Hgb Conc 29.9 g/dL (32-36); Mean Corpuscular Volume 96.1 fL (80-100); Mean Platelet Volume 9.9 fL (7.4-10.4); Monocytes # (auto) 0.52 K/uL (0.11-0.59); Monocytes % (auto) 4.9 %; Neutrophils # (auto) 8.52 K/uL (1.4-6.5); Neutrophils % (auto) 80.5 %; Platelet Count 338 K/uL (130-400); RDW Coefficient of Variation 15.3 % (11.5-14.5); RDW Standard Deviation 53.7 fL (36.4-46.3); Red Blood Count 2.85 M/uL (4.7-6.1); White Blood Count 10.58 K/uL (4.8-10.8)
[2021-12-12 05:27] LABS: BUN Creatinine Ratio 33.3 (10-20); Calcium 7.8 mg/dl (8.5-10.1); Creatinine Clr Calc Pharmacy 96.2 ml/min; Est GFR (African American) 113.5 ml/min; Magnesium 1.7 mg/dl (1.7-2.4); Phosphorus 2.4 mg/dl (2.5-4.9); Potassium 3.3 mmol/L (3.5-5.1)
[2021-12-12] MEDS: ICU ELECTROLYTE REPLACEMENT PROTOCOL SCH ×2 (05:57→19:08)
[2021-12-12] MEDS: POT PHOSPHATE MONOBASIC W/ SOD TAB NG SCH ×3 (06:20→14:42)
[2021-12-12] MEDS: POTASSIUM CHLORIDE 20 MEQ/15 ML UDC NG SCH ×3 (06:20→20:34)
[2021-12-12] MEDS: MAGNESIUM SULFATE / D5W 1 GM/100 ML BAG IV SCH ×4 (06:20→12:48)
[2021-12-12] MEDS: D5W AND 1/4NSS + 20MEQ KCL 20 MEQ/1,000 ML BAG IV SCH (06:28)
--- NOTE | 2021-12-12 08:17 | XRay Report ---
XR chest 1V portable HISTORY: 56 years-old Male Resp failure acute respiratory failure COMPARISON: Chest radiograph 12/11/2021 TECHNIQUE: Portable AP view of the chest FINDINGS: Tracheostomy cannula overlies the midline at the level of the clavicular heads. Mild cardiomegaly. No pneumothorax. Trace pleural effusions suspected. Extensive mixed interstitial and alveolar opacities are redemonstrated and appear stable to slightly progressed from prior. Degenerative changes of the shoulders and spine. IMPRESSION: Stable to mildly progressed extensive bilateral airspace opacities. ACT 112: Negative or not required by law. The above report was generated using voice recognition software. It may contain grammatical, syntax o r spelling errors. Electronically signed by: Harjeet Styles M.D. 12/12/2021 8:15 AM
[2021-12-12] MEDS: clonazePAM 0.5 MG TAB PO SCH (08:30)
[2021-12-12] MEDS: DOCUSATE SODIUM SYRUP 100 MG/10 ML UDC PO SCH ×2 (08:31→20:25)
[2021-12-12] MEDS: PANTOprazole 40 MG in SYRINGE 0 ML IV SCH (08:31)
[2021-12-12] MEDS: MIDODRINE HCL 2.5 MG TAB PO SCH ×3 (08:31→17:39)
[2021-12-12] MEDS: VANCOMYCIN HCL 750 MG in SODIUM CHLORIDE 0.9% 250 ML IV SCH ×2 (08:32→20:35)
--- NOTE | 2021-12-12 09:11 | Critical Care Consultation ---
Date of Consultation December 12, 2021 Assessment & Plan (1) Acute hypoxemic respiratory failure due to COVID-19: (2) 2019 novel coronavirus-infected pneumonia (NCIP): (3) Factor V Leiden carrier: (4) Positive blood cultures: (5) Leukocytosis: (6) DVT (deep venous thrombosis): (7) ARDS (adult respiratory distress syndrome): (8) Lung fibrosis: Neuro: - [facility] ICU: [facility] at this time- patient is awake and follows simple commands, does not mouth words to answer questions Sedation: Clonazepam 0.5 mg twice daily --Transient right-sided facial droop 12/07/2021, CT head was repeated which was negative [facility] were consulted and they said no intervention needed given the patient is therapeutically anticoagulated Cardiovascular: Hypotension S/p hypotension: multifactorial with prolonged bedrest, sepsis, hypovolemia -Levophed changed to phenylephrine 12/01/2021--> off as of 12/05/2021 -Continue with midodrine 5 mg 3 times daily Respiratory: VDRF with hypoxemia, Tracheostomy, ARDS with fibrosis, Pneumomediastinum- resoloved- , Elevated RVSP Likely secondary toAcute hypoxic respiratory failure- completed DEXA ARDS dosing- was tapered off steroids and remains off Secondary to multilobar COVID-19 pneumonia Patient has very poor compliance. Continue with ventilatory support Intubation 11/20 Tracheostomy 11/26 --> tracheostomy changed to 6 XLT D 12/04/2021 Elevated RSVP likely secondary to COVID fibrosis- pressures obtained via ECHO only at this time - 12/07/21- worsening of bilateral opacities and consolidations on CTA of the chest- broad spectrum antibiotics started- sputum with NGTD Renal: Urinary retention, FRANDY II, Link reinserted on 12/05/2021- consider removing Link and initiating bladder training tomorrow FRANDY Improving Monitor BUN/creatinine Avoid nephrotoxic medications Strict ins and outs : Constipation- resolved ID: Leukocytosis, COVID, + Blood cultures 12/07/21 with GPC -Febrile illness -Blood cultures 11/27 no growth to date - Blood cultures 12/07/21 GPC in clusters 3/4 bottles - repeat cultures 12/08/21- - ECHO 12/08/21- evaluate for vegetation - Urine- 12/07/20- NGTD - Sputum culture ordered 12/08/21 - Sputum 12/01/21- Scant normal minnie Heme: -History of factor Leiden deficiency, DVT, Acute DVT Therapeutic Lovenox sub q BID - Prophylaxis VTE: Lovenox therapeutic GI: Protonix once daily Lines:Peripherals, lIJ discontinued 11/28, right radial 11/28, positive Link replaced 12/05/2021 for retention - Continue use of link catheter and peripheral IV lines Diet: Tube feeds Patient's [phone] I have personally spent 45 minutes of critical care time in the direct management of this patient. This is a life/limb threatening event. This includes time spent evaluating patient, direct bedside care, chart review, placing orders, interpretation of diagnostic studies, discussion with consultants, patient, and family members, as well as other required patient management activities. This time is exclusive of all separately billable procedures, and teaching time and separate from and in addition to any other critical care service time. Please note the above document was generated using voice recognition software. It may contain grammatical, syntax or spelling errors. History of Present Illness Attending Physician: Mira James DO Allergies Allergy/AdvReac Type Severity Reaction Status Date / Time Sulfa (Sulfonamide Allergy Intermediate "tongue Verified 11/03/21 19:25 Antibiotics) turned black" Home Medications Medication Instructions Recorded Confirmed Type atorvastatin 20 mg tablet 20 mg PO DAILY 11/02/21 11/03/21 History ondansetron 4 mg disintegrating 4 mg PO Q6H PRN #20 tab 11/02/21 11/03/21 Rx tablet warfarin 1 mg tablet 2 mg PO [id number] 11/02/21 11/03/21 History warfarin 10 mg tablet 10 mg PO DAILY 11/02/21 11/03/21 History Patient History Medical History (Updated 12/11/21 @ 10:35 by Gil Dia MD) Acute hypoxemic respiratory failure due to COVID-19 ARDS (adult respiratory distress syndrome) COVID-19 Dyslipidemia Factor V Leiden carrier Warfarin History of DVT (deep vein thrombosis) Lung fibrosis Pneumomediastinum Surgical History No history of previous surgery Social History Smoking Status: Never smoker Hx Alcohol Use: No Hx Substance Use: No Preferred Language: [place] Leonean Communication Ability: Effective Grain Packer Required: No Beliefs That Will Affect Care: Pentecostalism Pentecostalism Beliefs: no blood products marital status: Current Living Situation: Family current occupational status: employed Other Information That Helps Us Care for You: No Feels Safe at Home: Yes Safety Concerns: Feels Safe At This Time Assistive Devices: Oxygen - Continuous Review of Systems Review of Systems: Unable to perform secondary to patient being trached and on mechanical ventilation Physical Exam Physical Exam: Constitutional: No acute distress HEENT: PERRLA,malar rash to cheeks, no spreading, right ear tender with vis ualization- bilateral TMs without perforation luo in color and normal cone of light, no buldging appreciated Respiratory system:Decreased air entry bilaterally, no wheeze, rhonchi, positive crackles bilaterally- trach and on ventilator CVS: S1-S2 positive, no murmurs or gallops, +3 pitting edema to left lower leg, +2 edema to right lower leg Abdomen: Soft, nontender, nondistended, positive bowel sounds x4 Neuro:Awake and alert, following simple commands. PEERL G/U: Indwelling Link Results & Data Results & Data ([facility]) Vital Signs (Past 12 Hours) Vital Signs Temp Pulse Resp BP Pulse Ox 12/12/21 07:50 105 H 35 H 91 12/12/21 06:00 37.1 C 110 H 32 H 142/72 H 93 12/12/21 05:00 36.8 C 100 H 34 H 147/76 H 92 12/12/21 04:10 103 H 36 H 90 12/12/21 04:00 37.1 C 99 H 32 H 143/75 H 94 12/12/21 03:00 37.0 C 104 H 32 H 139/74 93 12/12/21 02:00 37.1 C 104 H 32 H 135/72 95 12/12/21 01:00 37.2 C 105 H 35 H 134/73 94 12/12/21 00:00 36.9 C 106 H 34 H 129/72 93 12/11/21 23:10 105 H 37 H 91 12/11/21 23:00 37.1 C 110 H 33 H 127/69 93 12/11/21 22:00 37.5 C 94 H 36 H 157/77 H 91 Coding Diagnoses Acute hypoxemic respiratory failure due to COVID-19 U07.1; J96.01 2019 novel coronavirus-infected pneumonia (NCIP) U07.1; J12.82 Factor V Leiden carrier D68.51 Positive blood cultures R78.81 Leukocytosis D72.829 DVT (deep venous thrombosis) I82.409 ARDS (adult respiratory distress syndrome) J80 Lung fibrosis J84.10
--- NOTE | 2021-12-12 09:21 | Critical Care Progress Note ---
Date of Service December 12, 2021 Assessment & Plan (1) Acute hypoxemic respiratory failure due to COVID-19: (2) 2019 novel coronavirus-infected pneumonia (NCIP): (3) Factor V Leiden carrier: (4) Positive blood cultures: (5) Leukocytosis: (6) DVT (deep venous thrombosis): (7) ARDS (adult respiratory distress syndrome): (8) Lung fibrosis: Plan: Neuro: Anxiety - CAM ICU: Negative patient is awake and follows simple commands, mouths some words appropriately Sedation: Will decrease his Klonopin to 0.5mg PO daily and likely continue to wean off - Seroquel discontinued --Transient right-sided facial droop- resolved 12/07/2021, CT head was repeated which was negative [facility]y were consulted and they said no intervention needed given the patient is therapeutically anticoagulated Cardiovascular: Hypotension - Continue Midodrine - Free water increased earlier this week- remains with brisk urine output Respiratory: VDRF with hypoxemia, Tracheostomy, ARDS with fibrosis, Pneumomediastinum- resolved- , Elevated RVSP Post COVID fibrosis with ventilator dependancy- continue ventilator support with CPAP as tolerated- ABG acceptable today - awaiting LTAC placement - Trach changed to #6.0 shiley for large air leak- see procedure note Renal: Urinary retention, FRANDY II, Vaughn reinserted on 12/05/2021- secondary to retention - brisk output - FRANDY resolved : Constipation- resolved ID: CONS -Febrile illness -Blood cultures 11/27 no growth to date - Blood cultures 12/07/21 GPC in clusters 3/4 bottles- CONS - repeat cultures 12/08/21 and 12/10/21- remain with NGTD - ECHO 12/08/21- evaluate for vegetation - Urine- 12/07/20- NGTD - Sputum culture ordered 12/08/21- NGTD - Sputum 12/01/21- Scant normal minnie Heme: -History of factor Leiden deficiency, DVT, Acute DVT Therapeutic Lovenox sub q BID - Prophylaxis VTE: Lovenox therapeutic GI: Protonix once daily Lines:Peripherals, lIJ discontinued 11/28, right radial 11/28, positive Vaughn replaced 12/05/2021 for retention - Continue use of Vaughn catheter and peripheral IV lines Diet: Tube feeds- restart today Peptamen 1.5 I have personally spent 50 minutes of critical care time in the direct management of this patient. This is a life/limb threatening event. This includes time spent evaluating patient, direct bedside care, chart review, placing orders, interpretation of diagnostic studies, discussion with consultants, patient, and family members, as well as other required patient management activities. This time is exclusive of all separately billable procedures, and teaching time and separate from and in addition to any other critical care service time. Please note the above document was generated using voice recognition software. It may contain grammatical, syntax or spelling errors. Admission and Anticipated Discharge Date Admission Date: November 03, 2021 Supervising Physician Co-Signing Physician Notes Patient seen and examined. EMR reviewed. Discussed on multidisciplinary rounds and with bedside critical care nurse. Please see procedure note regarding replacement and exchange of current tracheostomy tube. The patient is stable otherwise. He is not yet in a position to pursue trach collar but may be able to tolerate pressure support ventilation. Continue aggressive therapy PT OT. Tube feeding per protocol. From a critical care perspective, the patient is appropriate for transfer to long-term acute care. Discussed with case management today. Referral has been pending and is awaiting Per approval. Continue supportive care in hopes of recovery. Patient's lung disease is significant with significant fibrosis. He may require evaluation for lung transplant at some point if he is able to recover strength Subjective 56 YOM rounded on by multidisciplinary team and at the bedside. Patient was admitted to the ICU for hypoxic respiratory failure secondary to COVID 19. He is HD #40 and Ventilator day #22 with Tracheostomy day #17. Patient trached on [id number] on and was changed to 6XLT on and PEG placed . Patient remains with fibrosed lungs post COVID and remains ventilator dependent although most of time spent on CPAP. Today he was noted with large leak from around his cuff, his cuff is inflated with it holding its pressure. Will plan to change out 6XLT today following bronchoscopic evaluation. Overall WBC has normalized while he remains on Vancomycin Day #6 for CONS, surveillance cultures remain with NGTD. Will initiate tube feeds back today. He had progressed to OOB to chair yesterday and should continue to push his physical therapy and OOB time as able. Review of Systems Review of Systems: unable to fully review secondary to mechanical ventilation Physical Exam Physical Exam: Constitutional: No acute distress HEENT: PERRLA, Trach in place with air leak, no drainage from nose Respiratory system:Leak as above, decreased VT with increase in his RR, lungs coarse throughout and poor air movement CVS: S1-S2 positive, no murmurs or gallops, trace lower extremity edema Abdomen: Soft, nontender, nondistended, positive bowel sounds x4, PEG tube placed yesterday site intact no drainage- initiate feedings today Extremities: +2 pulses bilaterally radialis/ dorsalis pedis,no cyanosis, +2 edema LLE, +1 right lower extremity Neuro:Awake and alert, following simple commands Psych:Calm not agitated G/U: Vaughn draining smita urine Skin: sacral ulceration covered with optifoam Results & Data Results & Data ([facility]) Vital Signs (Past 12 Hours) Vital Signs Temp Pulse Resp BP Pulse Ox 12/12/21 07:50 105 H 35 H 91 12/12/21 06:00 37.1 C 110 H 32 H 142/72 H 93 12/12/21 05:00 36.8 C 100 H 34 H 147/76 H 92 12/12/21 04:10 103 H 36 H 90 12/12/21 04:00 37.1 C 99 H 32 H 143/75 H 94 12/12/21 03:00 37.0 C 104 H 32 H 139/74 93 12/12/21 02:00 37.1 C 104 H 32 H 135/72 95 12/12/21 01:00 37.2 C 105 H 35 H 134/73 94 12/12/21 00:00 36.9 C 106 H 34 H 129/72 93 12/11/21 23:10 105 H 37 H 91 12/11/21 23:00 37.1 C 110 H 33 H 127/69 93 12/11/21 22:00 37.5 C 94 H 36 H 157/77 H 91 Laboratory Results Abnormal lab results 12/11/21 12/12/21 12/12/21 Range/Units 21:08 00:10 04:05 RBC (4.7-6.1) M/uL Hgb (14.0-18.0) g/dL POC Hgb 8.2 L (14.0-18.0) g/dl Hct (42-52) % POC Hct 24 L (42-52) % MCHC (32-36) g/dL RDW Std Deviation (36.4-46.3) fL RDW Coeff of Robby (11.5-14.5) % Neut # (Auto) (1.4-6.5) K/uL Immature Gran # (Auto) (0.00-0.02) K/uL POC pCO2 77 H (35-46) mmHg POC pO2 68 L (80-95) mmHg POC HCO3 42 H (19-24) feliz/L POC Total CO2 > 40 H* (24-31) mmol/L POC Base Excess 16.0 H (-9-1.8) feliz/L ABG pH (Temp Correct) 7.344 L (7.35-7.45) ABG pCO2 (Temp Corrct 77 H (35-46) mmHg POC Sodium 147 H (135-144) mmol/L Sodium (136-145) mmol/L POC Potassium 3.1 L (3.3-5.0) mmol/L Potassium (3.5-5.1) mmol/L Carbon Dioxide (21-32) mmol/L BUN (6-23) mg/dl BUN/Creatinine Ratio (10-20) Glucose (70-99) mg/dl POC Glucose 112 H 123 H (70-99) mg/dl Calcium (8.5-10.1) mg/dl Phosphorus (2.5-4.9) mg/dl 12/12/21 12/12/21 12/12/21 Range/Units 04:53 04:53 04:53 RBC 2.85 L (4.7-6.1) M/uL Hgb 8.2 L (14.0-18.0) g/dL POC Hgb (14.0-18.0) g/dl Hct 27.4 L (42-52) % POC Hct (42-52) % MCHC 29.9 L (32-36) g/dL RDW Std Deviation 53.7 H (36.4-46.3) fL RDW Coeff of Robby 15.3 H (11.5-14.5) % Neut # (Auto) 8.52 H (1.4-6.5) K/uL Immature Gran # (Auto) 0.04 H (0.00-0.02) K/uL POC pCO2 (35-46) mmHg POC pO2 (80-95) mmHg POC HCO3 (19-24) feliz/L POC Total CO2 (24-31) mmol/L POC Base Excess (-9-1.8) feliz/L ABG pH (Temp Correct) (7.35-7.45) ABG pCO2 (Temp Corrct (35-46) mmHg POC Sodium (135-144) mmol/L Sodium 147 H (136-145) mmol/L POC Potassium (3.3-5.0) mmol/L Potassium 3.3 L (3.5-5.1) mmol/L Carbon Dioxide 40 H (21-32) mmol/L BUN 27 H (6-23) mg/dl BUN/Creatinine Ratio 33.3 H (10-20) Glucose 132 H (70-99) mg/dl POC Glucose 132 H (70-99) mg/dl Calcium 7.8 L (8.5-10.1) mg/dl Phosphorus 2.4 L (2.5-4.9) mg/dl 12/12/21 Range/Units 08:42 RBC (4.7-6.1) M/uL Hgb (14.0-18.0) g/dL POC Hgb (14.0-18.0) g/dl Hct (42-52) % POC Hct (42-52) % MCHC (32-36) g/dL RDW Std Deviation (36.4-46.3) fL RDW Coeff of Robby (11.5-14.5) % Neut # (Auto) (1.4-6.5) K/uL Immature Gran # (Auto) (0.00-0.02) K/uL POC pCO2 (35-46) mmHg POC pO2 (80-95) mmHg POC HCO3 (19-24) feliz/L POC Total CO2 (24-31) mmol/L POC Base Excess (-9-1.8) feliz/L ABG pH (Temp Correct) (7.35-7.45) ABG pCO2 (Temp Corrct (35-46) mmHg POC Sodium (135-144) mmol/L Sodium (136-145) mmol/L POC Potassium (3.3-5.0) mmol/L Potassium (3.5-5.1) mmol/L Carbon Dioxide (21-32) mmol/L BUN (6-23) mg/dl BUN/Creatinine Ratio (10-20) Glucose (70-99) mg/dl POC Glucose 146 H (70-99) mg/dl Calcium (8.5-10.1) mg/dl Phosphorus (2.5-4.9) mg/dl Diagnostic Findings Chest X-Ray 12/12/21 07:00 XR chest 1V portable HISTORY: 56 years-old Male Resp failure acute respiratory failure COMPARISON: Chest radiograph 12/11/2021 TECHNIQUE: Portable AP view of the chest FINDINGS: Tracheostomy cannula overlies the midline at the level of the clavicular heads. Mild cardiomegaly. No pneumothorax. Trace pleural effusions suspected. Extensive mixed interstitial and alveolar opacities are redemonstrated and appear stable to slightly progressed from prior. Degenerative changes of the shoulders and spine. IMPRESSION: Stable to mildly progressed extensive bilateral airspace opacities. ACT 112: Negative or not required by law. The above report was generated using voice recognition software. It may contain grammatical, syntax or spelling errors. Electronically signed by: Harjeet Styles M.D. 12/12/2021 8:15 AM Coding Level of Care Code Critical Care 1st 30-74 mins Diagnoses Acute hypoxemic respiratory failure due to COVID-19 U07.1; J96.01 2019 novel coronavirus-infected pneumonia (NCIP) U07.1; J12.82 Factor V Leiden carrier D68.51 Positive blood cultures R78.81 Leukocytosis D72.829 DVT (deep venous thrombosis) I82.409 ARDS (adult respiratory distress syndrome) J80 Lung fibrosis J84.10
[2021-12-12] MEDS ORDERED: PROPOFOL IV EMULSION 10 MG/ML 100 ML VIAL IV ONE (10:15)
[2021-12-12] MEDS ORDERED: PROPOFOL BOLUS FROM BAG IV PRN ×2 (10:15)
[2021-12-12] MEDS: fentaNYL citrate 100 MCG/2 ML VIAL IV PRN ×2 (10:18→11:00)
--- NOTE | 2021-12-12 11:17 | Procedure Note ---
Procedure Note Date of Service December 12, 2021 Note Procedure: 1. Fiberoptic bronchoscopy through existing tracheostomy 2. Fiberoptic bronchoscopy via left nares from above 3. Exchange of existing 6.0 XLT trach for 8.0 nonfenestrated cuffed tracheostomy tube Indication: Persistent air leak and questionable trach placement. Record Retrieval Specialist Dr. Persaud Informatica Developer Patel Coley NP Anesthesia: 100 mcg fentanyl, 10 mL IV propofol push Consent: Discussed with patient. Family not available. Patient is in the ICU ventilated. His XLT cuff appears to be migrating and he has persistent leak. Bronchoscopy was indicated to evaluate position of tracheostomy and followed by trach change. The fiberoptic scope was advanced through the left nares without difficulty. The nasopharynx and oropharynx were normal. There were copious thin secretions throughout. With an anterior jaw thrust we were eventually able to visualize the epiglottis and vocal cords. The scope was passed through the cords. There appeared to be a translucent membrane above the tracheostomy tube which I could not clear with suction. I was able to pass around this and the tube was verified to be descending into the distal trachea. At that point time the scope was withdrawn from the nares and advanced through the tracheostomy tube via the Bodai adapter. The tube was about 3 cm above the james. The tube at that point time was extending approximately 3 to 4 cm outside of the skin surface of the neck. He had significant air leakage around the tube and decision was made to proceed with exchange to an 800 cuffed nonfenestrated tube. Patient was preoxygenated on 100%. He was placed supine. After anesthesia was administered, the existing tube was removed. I passed the bronchoscope through the existing ostomy and verified that inferiorly and superiorly there were no areas of obstruction. A previously tested 8.0 Shiley nonfenestrated cuffed tracheostomy tube had been loaded on a loading catheter. This was lubricated and passed through the ostomy without difficulty. The loading catheter was rem roderick. The balloon was inflated. The patient was attached to the ventilator. Tidal volumes and return volumes were appropriate. The leak resolved. Tube was secured with trach ties. The scope was then passed again through the left nares. I was able to visualize the trach tube entering inferior to the cords with the balloon seated in a good position. The patient tolerated the procedure well. Estimated blood loss: None Coding CPT Codes Pulmonary/Thoracic - Pulmonary and Thoracic: 98778 Dx bronchoscopy/wash ([id number]) Pulmonary/Thoracic - Pulmonary and Thoracic: 58823 Tracheotomy tube change ([id number]) [place] Procedure Codes (Charges) Pulmonary/Thoracic Procedure 1: Pulmonary and Thoracic: 60776 Dx bronchoscopy/wash Procedure 2: Pulmonary and Thoracic: 31996 Tracheotomy tube change
[2021-12-12] MEDS: TUBE FEEDING WATER FLUSH PEG SCH ×4 (12:49→23:40)
--- NOTE | 2021-12-12 13:07 | Pharmacy Report ---
Pharmacy Glycemic Short Note 2 - Date of Service December 12, 2021 - Glycemic Short BSG Results (Last 24 hours): 12/11/21 12/11/21 12/12/21 15:28 21:08 00:10 Glucose POC Glucose 92 112 H 123 H 12/12/21 12/12/21 12/12/21 04:53 04:53 08:42 Glucose 132 H POC Glucose 132 H 146 H 12/12/21 12:46 Glucose POC Glucose 104 H OUTPATIENT ANTIDIABETIC REGIMEN: * n/a * A1c 6.0% ASSESSMENT: 12/12: * Patient not requiring any insulin yesterday, tube feeds were held post PEG, and are resuming today. Slightly loosened carb ratio. Will continue to monitor, may consider change to q6 checks if no BSG rise with TF increase. 12/09: * Patient well controlled over the past for the most part, receiving 15 units of bolus insulin yesterday. Of note, TFs were held this morning due to an i ntolerance event and restarted this afternoon at 10 mL/hr. 12/05: * BSGs running higher yesterday than prior days. The only notable change identified was a change in tube feeds to Peptamen. Carb ratio was adjusted yesterday to account for rising BSGs however BSG then fell to 70s later in the day. As a result, we returned to a lesser dose of prandial insulin. Looking back on past data and insulin doses, his BSGs tend to be more smoothly controlled when a small dose of Lantus is provided. Will resume low dose Lantus for today and tomorrow. IV dexamethasone set to d/c after tomorrow's dose 12/04: * BSGs at goal over last 24 hrs. Steroid dose decreased to 2.5mg dexamethasone IV daily this AM. Tube feeds were changed yesterday and have been titrated to goal. Carb content of tube feeds are higher however Novolog Q 4 hrs appears to be adequately controlling. Phenylephrine has been titrated off. Will withhold basal insulin today given step down in steroid, but continue current Novolog doses. 12/03: * BSGs again fairly well controlled over last 24 hrs. Only a few BSGs in the 150-190s range following AM dexamethasone provision * He remains on Phenylephrine, however rates are lower this AM vs yesterday. IV steroid dose will decrease further tomorrow (down to 2.5mg dexamethasone daily). 12/01: * BSGs fairly well controlled over last 24 hrs despite receipt of pressors, continuous tube feeds, and IV steroids. * Today patients sedation regimen has been changed, norepi is being converted to phenylephrine, and dexamethasone dose is dropping 33% to 5mg IV daily * Will mix pressor in NSS to avoid high rates of D5W provision as base solution 11/28: * BSGs again well controlled over last 24 hrs. 5 units SQ insulin given in last 24 hrs to cover carbs in continuous tube feeds. * Patient remains on vent s/p trach, tube feeds are running at 50cc/hr (Peptamen VHP), pressors have been weaned off and IV dexamethasone dose reduced 25% today. * No need for addition of basal insulin given current BSG pattern. May be able to wean Novolog doses down with each step down in steroid dose. Pt has no prior h/o DM and A1c only consistent w/ "pre-DM" PLAN FOR INPATIENT GLYCEMIC CONTROL: * Basal: * none * NovoLog per scale Q4hrs * Goal range 110-140 mg/dl * CF = 20 mg/dl/unit * CR = 10 g/unit
[2021-12-12] MEDS: PEPTAMEN 1.5 CAL 1,000 ML BAG NG SCH (14:43)
--- NOTE | 2021-12-12 17:53 | Hospitalist Progress Note ---
Date of Service December 12, 2021 Assessment & Plan (1) Acute respiratory failure: (2) ARDS (adult respiratory distress syndrome): (3) 2019 novel coronavirus-infected pneumonia (NCIP): Plan: Respiratory failure 2/2 ARDS with fibrotic changes. Pneumomediastinum has resolved. Intubated on 11/20/21 --> 11/26/2021 tracheostomy status, on mechanical ventilation being managed per critical care team. Remains on ventilator in ICU, wean as tolerated. Completed dexamethasone. (4) Bacteremia: Plan: Continues on Vanc. 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 Defer to ICU team. 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 Cont Lovenox. Plan: Plan for LTAC DNR/DNI Mira James DO [facility] Hospitalist Admission and Anticipated Discharge Date Admission Date: November 03, 2021 Subjective 56 yo M admitted for acute respiratory failure 2/2 covid pneumonia. S/p trach PEG placed yesterday. appears ok, seems to deny pain but difficult to tell, ? confusion and patient with trach in place extreme weakness, not following commands. Review of Systems Review of Systems: ROS could not be obtained 2/2 vented and trached patient who is confused. Physical Exam Physical Exam: CONSTITUTIONAL: WNWD, vitals as above, generally NAD, some tachypnea at rest EYES: normal conjunctivae, no scleral icterus ENT: external ear and nose normal NECK: trachea midline, trach in place. RESPIRATORY: coarse rhonchi throughout, no rales or wheezes, vented. CARDIOVASCULAR: regular rate and rhythm, S1 and 2 heard without murmurs, gallops or rubs, no JVD, 3+ pitting edema on the LLE, 1+ pitting edema on the RLE CHEST: inspection of chest was normal GASTROINTESTINAL: soft, nontender, ND, no guarding, PEG site covered with dressing that is clean and dry. MUSCULOSKELETAL: generalized weakness, moves both arms symmetrically, limited ability to assess patient strength as he is not able to follow commands. SKIN: warm and dry NEUROLOGIC: CN 2-12 grossly intact, cannot speak 2/2 trach and vent, eyes open. Cannot assess orientation. Results & Data Results & Data ([facility]) Vital Signs (Past 12 Hours) Vital Signs Temp Pulse Resp BP Pulse Ox 12/12/21 14:22 97 H 33 H 90 12/12/21 11:42 87 32 H 90 12/12/21 09:00 37.2 C 106 H 34 H 132/82 93 12/12/21 08:00 37.1 C 107 H 38 H 132/77 93 12/12/21 07:50 105 H 35 H 91 12/12/21 07:00 37.1 C 107 H 32 H 129/71 92 12/12/21 06:00 37.1 C 110 H 32 H 142/72 H 93 Laboratory Results Short CBC 12/12/21 Range/Units 04:53 WBC 10.58 (4.8-10.8) K/uL Hgb 8.2 L (14.0-18.0) g/dL Hct 27.4 L (42-52) % Plt Count 338 (130-400) K/uL BMP 12/12/21 04:53 Sodium 147 H Potassium 3.3 L Chloride 103 Carbon Dioxide 40 H BUN 27 H Creatinine 0.81 Glucose 132 H Calcium 7.8 L Diagnostic Findings Chest X-Ray 12/12/21 07:00 XR chest 1V portable HISTORY: 56 years-old Male Resp failure acute respiratory failure COMPARISON: Chest radiograph 12/11/2021 TECHNIQUE: Portable AP view of the chest FINDINGS: Tracheostomy cannula overlies the midline at the level of the clavicular heads. Mild cardiomegaly. No pneumothorax. Trace pleural effusions suspected. Extensive mixed interstitial and alveolar opacities are redemonstrated and appear stable to slightly progressed from prior. Degenerative changes of the shoulders and spine. IMPRESSION: Stable to mildly progressed extensive bilateral airspace opacities. ACT 112: Negative or not required by law. The above report was generated using voice recognition software. It may contain grammatical, syntax or spelling errors. Electronically signed by: Harjeet Styles M.D. 12/12/2021 8:15 AM Medications Administered Current Inpatient Medications Acetaminophen (Acetaminophen 325 Mg Tab) 325 mg PO Q4H PRN PRN Reason: Mild Pain Stop: 12/15/21 23:44 Last Admin: 12/05/21 07:54 Dose: 325 mg Documented by: Acetaminophen (Acetaminophen Susp 500 Mg/15.6 Ml Udp) 500 mg PO Q6H PRN PRN Reason: Pain or Fever Stop: 12/27/21 13:07 Last Admin: 11/27/21 18:16 Dose: 500 mg Documented by: Clonazepam (Clonazepam 0.5 Mg Tab) 0.5 mg PO DAILY [facility] Stop: 01/12/22 08:59 Dextrose (Dextrose 50% 50 Ml Syringe) 25 - 50 ml IV UD PRN; Protocol PRN Reason: Hypoglycemia Protocol Stop: 12/21/21 12:14 Last Admin: 11/22/21 23:15 Dose: 25 ml Documented by: Docusate Sodium (Docusate Sodium Syrup 100 Mg/10 Ml Udc) 100 mg PO BID [facility] Stop: 12/28/21 20:59 Last Admin: 12/12/21 08:31 Dose: 100 mg Documented by: Enoxaparin Sodium (Enoxaparin 80 Mg/0.8 Ml Syr) 80 mg SQ Q12H [facility] Stop: 12/25/21 11:59 Last Admin: 12/12/21 12:40 Dose: 80 mg Documented by: Enteral Nutritional Formula (Peptamen 1.5 Sid 1,000 Ml Bag) 1,000 ml NG UD [facility]; Protocol Stop: 01/02/22 12:59 Last Admin: 12/12/21 14:43 Dose: 1,000 ml Documented by: Fentanyl Citrate (Fentanyl Citrate 100 Mcg/2 Ml Vial) 50 mcg IV Q2H PRN PRN Reason: Pain Stop: 12/20/21 08:26 Last Admin: 12/12/21 11:00 Dose: 50 mcg Documented by: Glucagon (Glucagon For Inj 1 Mg Vial) 1 mg IM UD PRN; Protocol PRN Reason: Hypoglycemia Protocol Stop: 12/21/21 12:14 Glucose (Glucose 40% Gel 15 Gm Tube) 15 - 30 gm PO UD PRN; Protocol PRN Reason: Hypoglycemia Protocol Stop: 12/21/21 12:14 Glucose (Glucose 10 Tabs/Tube) 4 - 8 tabs PO UD PRN; Protocol PRN Reason: Hypoglycemia Protocol Stop: 12/21/21 12:14 Vancomycin HCl 750 mg/ Sodium (Chloride) 265 mls @ 200 mls/hr IV Q12H [facility] Stop: 12/14/21 21:30 Last Infusion: 12/12/21 09:52 Dose: Infused Documented by: Insulin Aspart (Insulin Aspart Per Unit) 0 units SC Q4 [facility] Stop: 12/21/21 10:29 Last Admin: 12/12/21 17:38 Dose: 2 units Documented by: Lansoprazole (Lansoprazole 30 Mg Soltab) 30 mg NG QAM [facility] Stop: 01/12/22 08:59 Midodrine (Midodrine Hcl 2.5 Mg Tab) 5 mg PO TID@0800,1200,1700 [facility] Stop: 12/30/21 11:59 Last Admin: 12/12/21 17:39 Dose: 5 mg Documented by: Miscellaneous (Carbohydrates For Hypoglycemia ) 15 - 30 gm PO PRN PRN PRN Reason: Hypoglycemia Treatment Stop: 12/21/21 12:14 Miscellaneous (Icu Electrolyte Replacement Protocol) 1 ea N/A BID@06,18 [facility]; Protocol Stop: 12/18/21 17:59 Last Admin: 12/12/21 05:57 Dose: 1 ea Documented by: Miscellaneous Information (Pharmacy Glycemic Mgmt Consult) 1 ea N/A UD PRN PRN Reason: Consult Stop: 12/21/21 12:09 Miscellaneous Information (Vancomycin Consult Active) 1 ea N/A UD PRN PRN Reason: Consult Stop: 12/14/21 21:30 Sterile Water (Tube Feeding Water Flush) 150 ml PEG Q4H [facility] Stop: 01/11/22 10:59 Last Admin: 12/12/21 14:43 Dose: 150 ml Documented by:
[2021-12-12 18:55] LABS: BUN Creatinine Ratio 28.4 (10-20); Creatinine Clr Calc Pharmacy 96.2 ml/min; Est GFR (African American) 113.5 ml/min; Potassium 3.7 mmol/L (3.5-5.1)
[2021-12-13] MEDS: ENOXAPARIN 80 MG/0.8 ML SYR SQ SCH ×2 (00:08→12:13)
[2021-12-13] MEDS: POTASSIUM CHLORIDE 20 MEQ/15 ML UDC NG SCH ×3 (00:08→12:11)
[2021-12-13] MEDS: INSULIN ASPART PER UNIT SC SCH ×5 (00:16→17:51)
[2021-12-13] MEDS: TUBE FEEDING WATER FLUSH PEG SCH ×6 (03:00→21:28)
[2021-12-13 04:59] LABS: iSTAT Allen Test Pass; iSTAT Arterial Blood Gas HCO3 43 meg/L (19-24); iSTAT Arterial Blood Gas pCO2 78 mmHg (35-46); iSTAT Arterial Blood Gas pH 7.35 (7.35-7.45); iSTAT Arterial Blood Gas pO2 49 mmHg (80-95); iSTAT Carbon Dioxide > 40 mmol/L (24-31); iSTAT FiO2 70 %; iSTAT Site R Radial
[2021-12-13 06:04] LABS: Basophils # (auto) 0.02 K/uL (0-0.2); Basophils % (auto) 0.2 %; Eosinophils # (auto) 0.37 K/uL (0-0.5); Eosinophils % (auto) 3.5 %; Hematocrit (blood only) 27.2 % (42-52); Hemoglobin 8.1 g/dL (14.0-18.0); Immature Granulocytes # (auto) 0.04 K/uL (0.00-0.02); Immature Granulocytes % (auto) 0.4 %; Lymphocytes # (auto) 1.21 K/uL (1.2-3.4); Lymphocytes % (auto) 11.4 %; Mean Corpuscular Hemoglobin 28.7 pg (25-34); Mean Corpuscular Hgb Conc 29.8 g/dL (32-36); Mean Corpuscular Volume 96.5 fL (80-100); Mean Platelet Volume 10.1 fL (7.4-10.4); Monocytes # (auto) 0.54 K/uL (0.11-0.59); Monocytes % (auto) 5.1 %; Neutrophils # (auto) 8.39 K/uL (1.4-6.5); Neutrophils % (auto) 79.4 %; Platelet Count 321 K/uL (130-400); RDW Coefficient of Variation 15.4 % (11.5-14.5); RDW Standard Deviation 54.1 fL (36.4-46.3); Red Blood Count 2.82 M/uL (4.7-6.1); White Blood Count 10.57 K/uL (4.8-10.8)
[2021-12-13 06:33] LABS: BUN Creatinine Ratio 28.8 (10-20); Calcium 7.3 mg/dl (8.5-10.1); Est GFR (African American) 123.5 ml/min; Est GFR (Non-African American) 106.6 ml/min; Magnesium 1.8 mg/dl (1.7-2.4); Phosphorus 1.9 mg/dl (2.5-4.9); Potassium 3.5 mmol/L (3.5-5.1)
[2021-12-13] MEDS: ICU ELECTROLYTE REPLACEMENT PROTOCOL SCH ×2 (06:41→17:44)
[2021-12-13] MEDS ORDERED: SODIUM PHOSPHATE 3 MMOL/1 ML INFUSION IV SCH (07:00)
[2021-12-13] MEDS ORDERED: SODIUM PHOSPHATE 21 MMOL in DEXTROSE 5% 500 ML IV ONE (07:15)
--- NOTE | 2021-12-13 07:39 | XRay Report ---
XR chest 1V portable CLINICAL HISTORY: Respiratory failure. COMPARISON STUDY: Chest radiograph December 12, 2021. FINDINGS: Tracheostomy tube is in place. Cardiomediastinal silhouette is stable. No pneumothorax or p leural effusion is identified. Extensive bilateral airspace opacities are again noted. Lung aeration has minimally improved. IMPRESSION: Extensive bilateral airspace opacities. Slight improvement in lung aeration. ACT 112: Negative or not required by law. Electronically signed by: Jesus Roberts M.D. 12/13/2021 7:38 AM
[2021-12-13] MEDS: MAGNESIUM OXIDE 400 MG TAB NG SCH ×2 (08:01→12:11)
[2021-12-13] MEDS: DOCUSATE SODIUM SYRUP 100 MG/10 ML UDC PO SCH ×2 (08:02→21:30)
[2021-12-13] MEDS: MIDODRINE HCL 2.5 MG TAB PO SCH ×2 (08:02→17:44)
[2021-12-13] MEDS: LANSOPRAZOLE 30 MG SOLTAB NG SCH (08:02)
[2021-12-13] MEDS: clonazePAM 0.5 MG TAB PO SCH (08:04)
[2021-12-13] MEDS ORDERED: STAT IV STA (08:16)
[2021-12-13] MEDS ORDERED: ALBUMIN 25% 100 mL 25 GM/100 ML VIAL IV ONE (08:16)
[2021-12-13] MEDS ORDERED: FUROSEMIDE INJ 20 MG/2 ML VIAL IV ONE (08:16)
[2021-12-13] MEDS: VANCOMYCIN HCL 750 MG in SODIUM CHLORIDE 0.9% 250 ML IV SCH (08:24)
--- NOTE | 2021-12-13 08:25 | Critical Care Progress Note ---
Date of Service December 13, 2021 Assessment & Plan (1) Acute hypoxemic respiratory failure due to COVID-19: (2) COVID-19: (3) Lung fibrosis: (4) ARDS (adult respiratory distress syndrome): (5) Bacteremia: Plan: Impression: 56-year-old unvaccinated male admitted 11/03/2021 with COVID. He was intubated 11/20/2021 and tracheostomy was performed 11/26/2021 24-hour events: Tolerating intermittent pressure support ventilation trials. Remains tachycardic. Tolerating tube feeding. Overnight nursing reported intermittent leakage around the tracheostomy site.. Trach was upsized to 8 oh Shiley cuffed nonfenestrated yesterday Recommendations: Neuro: Currently on Klonopin 0.5 mg daily, weaning to off as well as as needed fentanyl. Continue to try and mobilize as tolerated. PT and OT in progress. Cardiovascular: Hypotension resolved. Off pressors now. We will start to wean oral midodrine, decrease to twice daily today. Remains tachycardic. Respiratory: Respiratory failure secondary to ARDS with significant fibrotic changes. Pneumomediastinum has resolved. Continue to wean ventilator as tolerated. Continue attempts to transition to pressure support ventilation as tolerated. Trach upsized to 8 cuffed Shiley yesterday. Still some leak today. Remains hypercarbic with very stiff lungs and poor compliance. May need evaluation for lung transplant at some point. When tolerating pressure support, will proceed to trach collar as tolerated. Renal: Kidney function back to normal. Electrolyte replacement as needed. Try and keep on slight negative balance. He does have evidence of peripheral edema. Echo showed collapsibility of IVC suggestive of intravascular volume depletion. Acid-base status does demonstrate significant respiratory acidosis. Continue free water via PEG tube, increase to 200 mL every 4. Replace calcium. Albumin and Lasix today : link catheter, can likely exchanged for condom catheter at some point ID: Coag negative staph in blood 3 out of 4 bottles. Day #8 vancomycin. White count and fever curve are better. Surveillance cultures negative. Can discontinue antibiotics and follow clinically Heme:-History of factor V Leiden with acute DVT. On therapeutic Lovenox. Mild anemia. No signs of bleeding. GI:Continue tube feeding. Check prealbumin. On Protonix Endo: Glycemic control per protocol. - Prophylaxis VTE: Lovenox therapeutic GI: Protonix once daily he is appropriate for transfer to LTAC, awaiting approval by insurance CRITICAL CARE TIME - I have personally spent 38 minutes of critical care time in the direct management of this patient. This is a life/limb threatening event. This includes time spent evaluating patient, direct bedside care, chart review, placing orders, interpretation of diagnostic studies, discussion with consultants, patient, and family members, as well as other required patient management activities. This time is exclusive of all separately billable procedures, and teaching time and separate from and in addition to any other critical care service time. Please note the above document was generated using voice recognition software. It may contain grammatical, syntax or spelling errors. Admission and Anticipated Discharge Date Admission Date: November 03, 2021 Subjective Patient seen and examined. EMR reviewed. Discussed with RT and critical care nurse at bedside. Patient is currently undergoing a pressure support trial. He is awake and alert but does not reliably follow commands. He offers no complaints this morning. Review of Systems Review of Systems: Unobtainable due to cognitive status Physical Exam Neck: trachea midline, no thyromegaly Trach appears clean dry and intact. Respiratory: normal respiratory effort, lungs clear to auscultation + labored breathing, + uses accessory muscles and + tachypneic Auscultation: + crackles; no wheezes Cardiovascular: Rate/Rhythm: + tachycardic Heart Sounds: normal S1 and normal S2; no murmur Extremities: + edema Gastrointestinal (Abdomen): normal bowel sounds, soft, nontender, no hepatosplenomegaly Musculoskeletal: Extremities: extremities normal to inspection Skin: no rashes, warm and dry Lymphatic: no cervical lymphadenopathy Results & Data Results & Data ([facility]) Vital Signs (Past 12 Hours) Vital Signs Temp Pulse Resp BP Pulse Ox 12/13/21 06:00 37.3 C 101 H 30 H 141/79 H 93 12/13/21 05:30 37.1 C 106 H 31 H 126/75 90 12/13/21 05:00 37.2 C 112 H 37 H 127/72 86 L 12/13/21 04:44 103 H 37 H 96 12/13/21 04:30 37.2 C 104 H 30 H 126/73 94 12/13/21 04:00 37.2 C 109 H 35 H 129/71 95 12/13/21 03:30 37.2 C 106 H 32 H 138/70 95 12/13/21 03:00 37.3 C 106 H 32 H 132/80 95 12/13/21 02:30 37.3 C 105 H 32 H 136/77 96 12/13/21 02:00 37.2 C 104 H 35 H 141/77 H 88 L 12/13/21 01:30 37.2 C 108 H 34 H 137/79 90 12/13/21 01:00 37.2 C 111 H 37 H 134/79 92 12/13/21 00:30 37.3 C 103 H 30 H 138/80 92 12/13/21 00:00 37.2 C 98 H 30 H 139/80 88 L 12/12/21 23:30 37.2 C 99 H 34 H 134/77 89 L 12/12/21 23:04 105 H 35 H 98 12/12/21 23:00 37.2 C 92 H 28 H 140/79 95 12/12/21 22:58 103 H 12/12/21 22:30 37.2 C 116 H 31 H 138/74 93 12/12/21 22:00 37.2 C 118 H 33 H 126/79 98 12/12/21 21:30 37.2 C 104 H 34 H 142/75 H 90 12/12/21 21:00 37.2 C 102 H 33 H 141/77 H 91 12/12/21 20:30 37.2 C 98 H 30 H 140/74 95 12/12/21 20:12 106 H 35 H 91 Critical Care Results & Data Vital Signs (Past 12 Hours) Vital Signs Temp Pulse Resp BP Pulse Ox 12/13/21 06:00 37.3 C 101 H 30 H 141/79 H 93 12/13/21 05:30 37.1 C 106 H 31 H 126/75 90 12/13/21 05:00 37.2 C 112 H 37 H 127/72 86 L 12/13/21 04:44 103 H 37 H 96 12/13/21 04:30 37.2 C 104 H 30 H 126/73 94 12/13/21 04:00 37.2 C 109 H 35 H 129/71 95 12/13/21 03:30 37.2 C 106 H 32 H 138/70 95 12/13/21 03:00 37.3 C 106 H 32 H 132/80 95 12/13/21 02:30 37.3 C 105 H 32 H 136/77 96 12/13/21 02:00 37.2 C 104 H 35 H 141/77 H 88 L 12/13/21 01:30 37.2 C 108 H 34 H 137/79 90 12/13/21 01:00 37.2 C 111 H 37 H 134/79 92 12/13/21 00:30 37.3 C 103 H 30 H 138/80 92 12/13/21 00:00 37.2 C 98 H 30 H 139/80 88 L 12/12/21 23:30 37.2 C 99 H 34 H 134/77 89 L 12/12/21 23:04 105 H 35 H 98 12/12/21 23:00 37.2 C 92 H 28 H 140/79 95 12/12/21 22:58 103 H 12/12/21 22:30 37.2 C 116 H 31 H 138/74 93 12/12/21 22:00 37.2 C 118 H 33 H 126/79 98 12/12/21 21:30 37.2 C 104 H 34 H 142/75 H 90 12/12/21 21:00 37.2 C 102 H 33 H 141/77 H 91 12/12/21 20:30 37.2 C 98 H 30 H 140/74 95 12/12/21 20:12 106 H 35 H 91 Lab & Micro Results (Past 24 Hours) RBC 2.82 M/uL (4.7-6.1) L 12/13/21 WBC 10.57 K/uL (4.8-10.8) 12/13/21 Hgb 8.1 g/dL (14.0-18.0) L 12/13/21 Hct 27.2 % (42-52) L 12/13/21 MCV 96.5 fL (80-100) 12/13/21 MCH 28.7 pg (25-34) 12/13/21 MCHC 29.8 g/dL (32-36) L 12/13/21 RDW Standard Deviation 54.1 fL (36.4-46.3) H 12/13/21 RDW Coefficient of Variation 15.4 % (11.5-14.5) H 12/13/21 Plt Count 321 K/uL (130-400) 12/13/21 MPV 10.1 fL (7.4-10.4) 12/13/21 Neutrophils (%) (Auto) 79.4 % 12/13/21 Lymphocytes (%) (Auto) 11.4 % 12/13/21 Monocytes # (Auto) 0.54 K/uL (0.11-0.59) 12/13/21 Eosinophils # (Auto) 0.37 K/uL (0-0.5) 12/13/21 Immature Granulocyte % (Auto) 0.4 % 12/13/21 Neutrophils # (Auto) 8.39 K/uL (1.4-6.5) H 12/13/21 Lymphocytes # (Auto) 1.21 K/uL (1.2-3.4) 12/13/21 Monocytes # (Auto) 0.54 K/uL (0.11-0.59) 12/13/21 Eosinophils # (Auto) 0.37 K/uL (0-0.5) 12/13/21 Basophils # (Auto) 0.02 K/uL (0-0.2) 12/13/21 Immature Granulocyte # (Auto) 0.04 K/uL (0.00-0.02) H 12/13/21 Na 146 mmol/L (136-145) H 12/13/21 K 3.5 mmol/L (3.5-5.1) 12/13/21 Cl 106 mmol/L (98-107) 12/13/21 CO2 37 mmol/L (21-32) H 12/13/21 Anion Gap 3 (3-11) 12/13/21 BUN 19 mg/dl (6-23) 12/13/21 Creatinine 0.66 mg/dl (0.6-1.4) 12/13/21 Estimated GFR ( Amer) 123.5 ml/min 12/13/21 Estimated GFR (Non-Af Amer) 106.6 ml/min 12/13/21 BUN/Creatinine Ratio 28.8 (10-20) H 12/13/21 Glu 116 mg/dl (70-99) H 12/13/21 Ca 7.3 mg/dl (8.5-10.1) L 12/13/21 Phosphorus Level 1.9 mg/dl (2.5-4.9) L 12/13/21 Mg 1.8 mg/dl (1.7-2.4) 12/13/21 05:36 12/13/21 Calcium Level 7.3 mg/dl (8.5-10.1) L 12/13/21 05:36 12/13/21 Francisco Test Pass 12/13/21 04:44 12/13/21 Microbiology 12/10/21 16:58 Aerobic Blood Culture - Preliminary Blood No growth in Aerobic bottle after 48 hours. Anaerobic Blood Culture - Preliminary No growth in Anaerobic bottle after 48 hours. 12/10/21 16:45 Aerobic Blood Culture - Preliminary Blood No growth in Aerobic bottle after 48 hours. Anaerobic Blood Culture - Preliminary No growth in Anaerobic bottle after 48 hours. 12/07/21 06:15 Aerobic Blood Culture - Preliminary Blood Coag neg staph not lugdunensis Anaerobic Blood Culture - Final No growth in Anaerobic bottle after 5 days. Diagnostic Findings (Past 24 Hours) Chest X-Ray 12/12/21 07:00 XR chest 1V portable HISTORY: 56 years-old Male Resp failure acute respiratory failure COMPARISON: Chest radiograph 12/11/2021 TECHNIQUE: Portable AP view of the chest FINDINGS: Tracheostomy cannula overlies the midline at the level of the clavicular heads. Mild cardiomegaly. No pneumothorax. Trace pleural effusions suspected. Extensive mixed interstitial and alveolar opacities are redemonstrated and appear stable to slightly progressed from prior. Degenerative changes of the shoulders and spine. IMPRESSION: Stable to mildly progressed extensive bilateral airspace opacities. ACT 112: Negative or not required by law. The above report was generated using voice recognition software. It may contain grammatical, syntax or spelling errors. Electronically signed by: Harjeet Styles M.D. 12/12/2021 8:15 AM Chest X-Ray 12/13/21 07:00 XR chest 1V portable CLINICAL HISTORY: Respiratory failure. COMPARISON STUDY: Chest radiograph December 12, 2021. FINDINGS: Tracheostomy tube is in place. Cardiomediastinal silhouette is stable. No pneumothorax or pleural effusion is identified. Extensive bilateral airspace opacities are again noted. Lung aeration has minimally improved. IMPRESSION: Extensive bilateral airspace opacities. Slight improvement in lung aeration. ACT 112: Negative or not required by law. Electronically signed by: Jesus Roberts M.D. 12/13/2021 7:38 AM I & O Totals 24 Hours 12/12/21 12/13/21 12/14/21 06:59 06:59 06:59 Intake Total 1965.75 / 1965.75 1822.5 / 1822.5 Output Total 1825 / 1825 215 / 2152 Balance 140.75 / 140.75 -329.5 / -329.5 Cumulative 11/03/21 14:22 thru 12/13/21 06:00 Intake Total 76772.264 Output Total 12247 Balance -4943.736 RT Ventilator Mngmt (Last Documented) Ventilator Ordered Settings Ventilator Support Mode Pressure Control 12/13/21 04:44 Respiratory Rate 30 12/13/21 06:00 Ventilator Tidal Volume 450 12/11/21 16:00 Setting Minute Ventilation 12 12/13/21 04:44 Ventilator Positive Pressure 20 12/12/21 16:00 Support Setting Positive End Expiratory 8 12/13/21 04:44 Pressure Fraction of Inspired Oxygen 55 12/13/21 04:44 Peak Inspiratory Flow 43 11/27/21 16:27 Inspiratory Pressure 28 12/13/21 04:44 Machine Comment increased to 60% 12/11/21 10:36 Ventilator - PT Measurements Respiratory Rate 30 Exhaled Tidal Volume 437 Minute Ventilation 12 Peak Inspiratory Airway 39 Pressure Plateau Pressure 16.9 Respiratory Cycle Inspiratory: 1:2.1 Expiratory Ratio Inspiratory Phase Time 0.6 End-Tidal CO2 30 Static Lung Compliance 49.10 Dynamic Lung Compliance 14.10 Normal Static Lung Compliance 43.00 Patient Measurements Comment FIO2 increased to 100% during bronch, decreased to 70% at this time Coding Level of Care Code 66385 Subseq Hosp Care Lvl 3 Diagnoses Acute hypoxemic respiratory failure due to COVID-19 U07.1; J96.01 COVID-19 U07.1 Lung fibrosis J84.10 ARDS (adult respiratory distress syndrome) J80 Bacteremia R78.81
[2021-12-13] MEDS ORDERED: CALCIUM GLUCONATE 10% 2,000 MG in DEXTROSE 5% 50 ML IV ONE (08:30)
[2021-12-13 16:44] LABS: iSTAT Allen Test Pass; iSTAT Arterial Blood Gas HCO3 49 meg/L (19-24); iSTAT Arterial Blood Gas pCO2 > 115 mmHg (35-46); iSTAT Arterial Blood Gas pH 7.21 (7.35-7.45); iSTAT Arterial Blood Gas pO2 125 mmHg (80-95); iSTAT Carbon Dioxide > 50 mmol/L (24-31); iSTAT FiO2 75 %; iSTAT Site R Radial
[2021-12-13] MEDS ORDERED: ONDANSETRON INJ 2 MG/ML 2 ML VIAL ONE (20:30)
[2021-12-13 20:59] LABS: iSTAT Allen Test Pass; iSTAT Art Bld Gas pCO2 Correct 81 mmHg (35-46); iSTAT Art Bld Gas pH Corrected 7.366 (7.35-7.45); iSTAT Arterial Blood Gas HCO3 46 meg/L (19-24); iSTAT Arterial Blood Gas pCO2 79 mmHg (35-46); iSTAT Arterial Blood Gas pH 7.38 (7.35-7.45); iSTAT Arterial Blood Gas pO2 69 mmHg (80-95); iSTAT Arterial Blood Gas pO2 C 72; iSTAT Carbon Dioxide > 40 mmol/L (24-31); iSTAT FiO2 60 %; iSTAT Hematocrit 24 % (42-52); iSTAT Hemoglobin 8.2 g/dl (14.0-18.0); iSTAT Site L Radial; iSTAT Sodium 145 mmol/L (135-144)
[2021-12-13] MEDS: ONDANSETRON INJ 2 MG/ML 2 ML VIAL IV PRN (21:29)
[2021-12-14] MEDS: INSULIN ASPART PER UNIT SC SCH ×5 (00:32→23:49)
[2021-12-14] MEDS: TUBE FEEDING WATER FLUSH PEG SCH ×6 (00:33→21:18)
[2021-12-14] MEDS: ENOXAPARIN 80 MG/0.8 ML SYR SQ SCH ×3 (00:37→23:36)
[2021-12-14 04:24] LABS: iSTAT Allen Test Pass; iSTAT Art Bld Gas pCO2 Correct 78 mmHg (35-46); iSTAT Art Bld Gas pH Corrected 7.377 (7.35-7.45); iSTAT Arterial Blood Gas HCO3 46 meg/L (19-24); iSTAT Arterial Blood Gas pCO2 76 mmHg (35-46); iSTAT Arterial Blood Gas pH 7.39 (7.35-7.45); iSTAT Arterial Blood Gas pO2 68 mmHg (80-95); iSTAT Arterial Blood Gas pO2 C 71; iSTAT Carbon Dioxide > 40 mmol/L (24-31); iSTAT FiO2 60 %; iSTAT Hematocrit 23 % (42-52); iSTAT Hemoglobin 7.8 g/dl (14.0-18.0); iSTAT Potassium 3.6 mmol/L (3.3-5.0); iSTAT Site L Radial; iSTAT Sodium 144 mmol/L (135-144)
[2021-12-14 05:45] LABS: BUN Creatinine Ratio 28.6 (10-20); Calcium 7.2 mg/dl (8.5-10.1); Creatinine Clr Calc Pharmacy 123.7 ml/min; Est GFR (African American) 125.9 ml/min; Est GFR (Non-African American) 108.6 ml/min; Magnesium 1.6 mg/dl (1.7-2.4); Phosphorus 1.8 mg/dl (2.5-4.9); Potassium 3.5 mmol/L (3.5-5.1)
[2021-12-14] MEDS ORDERED: SODIUM PHOSPHATE 3 MMOL/1 ML INFUSION IV STA (06:06)
[2021-12-14] MEDS ORDERED: SODIUM PHOSPHATE 21 MMOL in SODIUM CHLORIDE 0.9% 500 ML IV ONE (06:45)
[2021-12-14] MEDS: POTASSIUM CHLORIDE 20 MEQ/15 ML UDC NG SCH ×2 (06:49→09:17)
[2021-12-14] MEDS: ICU ELECTROLYTE REPLACEMENT PROTOCOL SCH ×2 (06:49→17:13)
[2021-12-14] MEDS: MAGNESIUM OXIDE 400 MG TAB NG SCH ×2 (06:49→09:16)
[2021-12-14 06:56] LABS: Basophils # (auto) 0.02 K/uL (0-0.2); Basophils % (auto) 0.2 %; Eosinophils # (auto) 0.31 K/uL (0-0.5); Eosinophils % (auto) 2.5 %; Hematocrit (blood only) 27.7 % (42-52); Hemoglobin 8.2 g/dL (14.0-18.0); Immature Granulocytes # (auto) 0.03 K/uL (0.00-0.02); Immature Granulocytes % (auto) 0.2 %; Lymphocytes # (auto) 1.35 K/uL (1.2-3.4); Lymphocytes % (auto) 10.8 %; Mean Corpuscular Hemoglobin 29.2 pg (25-34); Mean Corpuscular Volume 98.6 fL (80-100); Mean Platelet Volume 9.6 fL (7.4-10.4); Monocytes # (auto) 0.61 K/uL (0.11-0.59); Monocytes % (auto) 4.9 %; Neutrophils # (auto) 10.15 K/uL (1.4-6.5); Neutrophils % (auto) 81.4 %; Platelet Count 307 K/uL (130-400); RDW Coefficient of Variation 15.6 % (11.5-14.5); RDW Standard Deviation 55.4 fL (36.4-46.3); Red Blood Count 2.81 M/uL (4.7-6.1); White Blood Count 12.47 K/uL (4.8-10.8)
[2021-12-14 07:41] LABS: Mean Corpuscular Hgb Conc 29.6 g/dL (32-36)
--- NOTE | 2021-12-14 08:37 | Hospitalist Progress Note ---
Date of Service December 13, 2021 Assessment & Plan (1) Acute respiratory failure: (2) ARDS (adult respiratory distress syndrome): (3) 2019 novel coronavirus-infected pneumonia (NCIP): Plan: Respiratory failure 2/2 ARDS with fibrotic changes. Pneumomediastinum has resolved. Intubated on 11/20/21 --> 11/26/2021 tracheostomy status, on mechanical ventilation being managed per critical care team. Remains on ventilator in ICU, wean as tolerated. Completed dexamethasone. (4) Bacteremia: Plan: Continues on Vanc. Blood cultures growing BUSINESS OBJECTS. ICU team with plans to stop antibiotics at this time as he has had 8 days. 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 Cont Lovenox. Plan: Plan for LTAC DNR/DNI Mira James DO [facility] Hospitalist Admission and Anticipated Discharge Date Admission Date: November 03, 2021 Subjective 56 yo M admitted for acute respiratory failure 2/2 covid pneumonia. S/p trach and PEG appears ok, seems to deny pain but difficult to tell, ? confusion and patient with trach in place extreme weakness, not following commands. Review of Systems Review of Systems: ROS was unobtainable 2/2 confusion Physical Exam Physical Exam: CONSTITUTIONAL: WNWD, vitals as above, generally NAD, + tachypnea EYES: normal conjunctivae, no scleral icterus ENT: external ear and nose normal NECK: trachea midline, trach in place. RESPIRATORY: clear to auscultation throughout, no rales or wheezes CARDIOVASCULAR: regular rate and rhythm, S1 and 2 heard without murmurs, gallops or rubs, no JVD, 3+ pitting edema on the LLE, 1+ pitting edema on the RLE CHEST: inspection of chest was normal GASTROINTESTINAL: soft, nontender, ND, no guarding, PEG site clean and dry. MUSCULOSKELETAL: generalized weakness, cannot assess 2/2 fatigue and ? confusion SKIN: warm and dry NEUROLOGIC: CN 2-12 grossly intact, cannot speak 2/2 trach and vent, somnolent and confused. Results & Data Results & Data ([facility]) Vital Signs (Past 12 Hours) Vital Signs Temp Pulse Resp BP Pulse Ox 12/14/21 05:30 37.4 C 108 H 25 H 123/66 90 01/16/22 05:00 37.4 C 116 H 36 H 120/66 93 12/14/21 04:30 37.5 C 111 H 32 H 115/65 93 12/14/21 04:09 102 H 32 H 94 12/14/21 04:00 37.5 C 103 H 31 H 117/65 93 12/14/21 03:30 37.4 C 114 H 32 H 119/64 92 12/14/21 03:00 37.4 C 111 H 32 H 116/64 96 12/14/21 02:30 37.3 C 107 H 28 H 118/65 97 12/14/21 02:00 37.3 C 112 H 32 H 113/64 94 12/14/21 01:30 37.4 C 116 H 32 H 117/66 94 12/14/21 01:00 37.4 C 115 H 33 H 105/59 L 96 12/14/21 00:30 37.2 C 123 H 24 89/53 L 95 12/14/21 00:00 37.3 C 118 H 32 H 110/61 95 12/13/21 23:32 116 H 33 H 95 12/13/21 23:30 37.5 C 117 H 29 H 115/60 93 12/13/21 23:00 37.5 C 120 H 28 H 104/58 L 95 12/13/21 22:30 37.5 C 120 H 33 H 116/64 97 12/13/21 22:00 37.5 C 117 H 32 H 115/65 98 12/13/21 21:30 37.6 C H 121 H 31 H 112/61 97 12/13/21 21:00 37.5 C 120 H 32 H 104/64 98 12/13/21 20:38 118 H 32 H 97
--- NOTE | 2021-12-14 09:06 | XRay Report ---
XR chest 1V portable CLINICAL HISTORY: Resp failure. Follow-up bilateral airspace opacities COMPARISON STUDY: 12/13/2021 TECHNIQUE: 1 view of the chest FINDINGS: Single frontal view of the chest demonstrates the cardiomediastinal silhouette to be within normal li mits. Tracheostomy tube is unchanged. Compared to the previous examination, bilateral interstitial an d alveolar opacities are again seen and essentially unchanged. There is also evidence for bilateral p leural effusions layering along the posterior gutters. There is no evidence for vascular congestion. There is no acute osseous pathology. IMPRESSION: Bilateral interstitial and alveolar opacities are again seen and essentially unchanged. T here is also evidence for bilateral pleural effusions layering along the posterior gutters. ACT 112: Negative or not required by law. Electronically signed by: El Rebolledo M.D. 12/14/2021 9:04 AM
[2021-12-14] MEDS: fentaNYL citrate 100 MCG/2 ML VIAL IV PRN ×3 (09:16→23:33)
[2021-12-14] MEDS: clonazePAM 0.5 MG TAB PO SCH (09:16)
[2021-12-14] MEDS: ONDANSETRON INJ 2 MG/ML 2 ML VIAL IV PRN (09:17)
[2021-12-14] MEDS: DOCUSATE SODIUM SYRUP 100 MG/10 ML UDC PO SCH ×2 (09:18→17:14)
[2021-12-14] MEDS: LANSOPRAZOLE 30 MG SOLTAB NG SCH (09:18)
[2021-12-14] MEDS: MIDODRINE HCL 2.5 MG TAB PO SCH ×2 (09:19→16:33)
--- NOTE | 2021-12-14 09:25 | Critical Care Progress Note ---
Date of Service December 14, 2021 Assessment & Plan (1) Acute hypoxemic respiratory failure due to COVID-19: (2) COVID-19: (3) Lung fibrosis: (4) ARDS (adult respiratory distress syndrome): (5) Bacteremia: Plan: 24-hour events: Tolerating intermittent pressure support ventilation trials. Remains tachycardic. Tolerating tube feeding. Overnight nursing reported intermittent leakage around the tracheostomy site.. Trach was upsized to 8 oh Shiley cuffed nonfenestrated yesterday Recommendations: Neuro: Currently on Klonopin 0.5 mg daily, weaning to off as well as as needed fentanyl. Continue to try and mobilize as tolerated. PT and OT in progress. Cardiovascular: Hypotension resolved. Off pressors now. We will start to wean oral midodrine, decrease to twice daily today. Remains tachycardic. Respiratory: Respiratory failure secondary to ARDS with significant fibrotic changes. Pneumomediastinum has resolved. Continue to wean ventilator as tolerated. Continue attempts to transition to pressure support ventilation as tolerated. Trach upsized to 8 cuffed Shiley yesterday. Still some leak today. Remains hypercarbic with very stiff lungs and poor compliance. May need evaluation for lung transplant at some point. Required PC ventilation overnight secondary to hypercarbia and cuff leak. Cuff lead is intermittent, Cuff pressure is holding- can progress back to CPAP and hopeful for OOB today with r esting on PC ventilation as needed. Renal/lytes Kidney function back to normal. Electrolyte replacement as needed. Try and keep on slight negative balance. He does have evidence of peripheral ed emil. Echo showed collapsibility of IVC suggestive of intravascular volume depletion. Acid-base status does demonstrate significant respiratory acidosis. Continue free water via PEG tube, increase to 200 mL every 4. Replace calcium. Albumin and Lasix today - PO4 replaced today- continue with electrolyte replacement protocol : link catheter discontinue today- transition to condom catheter or bladder scans with straight cath for bladder training if needed. ID: Coag negative staph in blood 3 out of 4 bottles. Day #8 vancomycin. White count and fever curve are better. Surveillance cultures negative. Can discontinue antibiotics and follow clinically Heme:-History of factor V Leiden with acute DVT. On therapeutic Lovenox. Mild anemia. No signs of bleeding. - As he has not had any setbacks this week could consider returning him to his oral VKA this week. GI:Continue tube feeding. Check prealbumin. On Protonix Endo: Glycemic control per protocol. - Prophylaxis VTE: Lovenox therapeutic GI: Protonix once daily he is appropriate for transfer to LTAC, awaiting approval by insurance CRITICAL CARE TIME - I have personally spent 38 minutes of critical care time in the direct management of this patient. This is a life/limb threatening event. This includes time spent evaluating patient, direct bedside care, chart review, placing orders, interpretation of diagnostic studies, discussion with consultants, patient, and family members, as well as other required patient management activities. This time is exclusive of all separately billable procedures, and teaching time and separate from and in addition to any other critical care service time. Please note the above document was generated using voice recognition software. It may contain grammatical, syntax or spelling errors. Admission and Anticipated Discharge Date Admission Date: November 03, 2021 Supervising Physician Co-Signing Physician Notes Patient seen and examined. EMR reviewed. Discussed with MARKY and agree with assessment and plan as noted. The patient is making slow progress. Continue aggressive therapy. Discontinue Link catheter. Can use condom cath if needed. Continue aggressive PT and OT. Await LTAC placement. Continue attempts at pressure support weans as tolerated. Continues to have some evidence of leakage around the trach however bronchoscopy demonstrated it to be in good position. No indication for changing out the trach currently. Continue to follow. Family will be updated by MARKY Subjective 56 YOM rounded on by multidisciplinary team and at the bedside. Patient was admitted to the ICU for hypoxic respiratory failure secondary to COVID 19. He is HD #42 and Ventilator day #24 with Tracheostomy day #19. Patient trached on on and was changed to 6XLT on with an upsize to 8.0 Shiley on , and PEG placed . Patient remains with fibrosed lungs post COVID and remains ventilator dependent although most of time spent on CPAP. He was hypercarbic yesterday evening requiring placement back to PC ventilation. Consider transitioning back to his oral VKA. Physical Exam Physical Exam: Constitutional: No acute distress HEENT: PERRLA, Trach in place with air leak, no drainage from nose Respiratory system:Leak as above, decreased VT with increase in his RR, lungs coarse throughout and poor air movement CVS: S1-S2 positive, no murmurs or gallops, trace lower extremity edema Abdomen: Soft, nontender, nondistended, positive bowel sounds x4, PEG tube placed yesterday site intact no drainage- initiate feedings today Extremities: +2 pulses bilaterally radialis/ dorsalis pedis,no cyanosis, +2 edema LLE, +1 right lower extremity Neuro:Awake and alert, following simple commands Psych:Calm not agitated G/U: Link draining smita urine Skin: sacral ulceration covered with opti-foam Results & Data Results & Data ([facility]) Vital Signs (Past 12 Hours) Vital Signs Temp Pulse Resp BP Pulse Ox 12/14/21 08:54 111 H 35 H 94 12/14/21 05:30 37.4 C 108 H 25 H 123/66 90 12/14/21 05:00 37.4 C 116 H 36 H 120/66 93 12/14/21 04:30 37.5 C 111 H 32 H 115/65 93 12/14/21 04:09 102 H 32 H 94 12/14/21 04:00 37.5 C 103 H 31 H 117/65 93 12/14/21 03:30 37.4 C 114 H 32 H 119/64 92 12/14/21 03:00 37.4 C 111 H 32 H 116/64 96 12/14/21 02:30 37.3 C 107 H 28 H 118/65 97 12/14/21 02:00 37.3 C 112 H 32 H 113/64 94 12/14/21 01:30 37.4 C 116 H 32 H 117/66 94 12/14/21 01:00 37.4 C 115 H 33 H 105/59 L 96 12/14/21 00:30 37.2 C 123 H 24 89/53 L 95 12/14/21 00:00 37.3 C 118 H 32 H 110/61 95 12/13/21 23:32 116 H 33 H 95 12/13/21 23:30 37.5 C 117 H 29 H 115/60 93 12/13/21 23:00 37.5 C 120 H 28 H 104/58 L 95 12/13/21 22:30 37.5 C 120 H 33 H 116/64 97 12/13/21 22:00 37.5 C 117 H 32 H 115/65 98 12/13/21 21:30 37.6 C H 121 H 31 H 112/61 97 Laboratory Results Abnormal lab results 12/13/21 12/13/21 12/13/21 Range/Units 12:08 16:30 17:49 WBC (4.8-10.8) K/uL RBC (4.7-6.1) M/uL Hgb (14.0-18.0) g/dL POC Hgb (14.0-18.0) g/dl Hct (42-52) % POC Hct (42-52) % MCHC (32-36) g/dL RDW Std Deviation (36.4-46.3) fL RDW Coeff of Robby (11.5-14.5) % Neut # (Auto) (1.4-6.5) K/uL Greer # (Auto) (0.11-0.59) K/uL Immature Gran # (Auto) (0.00-0.02) K/uL POC pH 7.21 L (7.35-7.45) POC pCO2 > 115 H (35-46) mmHg POC pO2 125 H (80-95) mmHg POC HCO3 49 H (19-24) feliz/L POC Total CO2 > 50 H* (24-31) mmol/L POC Base Excess 21.0 H (-9-1.8) feliz/L ABG pCO2 (Temp Corrct (35-46) mmHg POC ABG O2 Sat 97.0 H (90-95) % POC Sodium (135-144) mmol/L Sodium (136-145) mmol/L Chloride (98-107) mmol/L Carbon Dioxide (21-32) mmol/L BUN/Creatinine Ratio (10-20) POC Glucose 155 H 100 H (70-99) mg/dl Calcium (8.5-10.1) mg/dl Phosphorus (2.5-4.9) mg/dl Magnesium (1.7-2.4) mg/dl Prealbumin (20-40) mg/dl 12/13/21 12/14/21 12/14/21 Range/Units 20:46 04:09 04:51 WBC (4.8-10.8) K/uL RBC (4.7-6.1) M/uL Hgb (14.0-18.0) g/dL POC Hgb 8.2 L 7.8 L (14.0-18.0) g/dl Hct (42-52) % POC Hct 24 L 23 L (42-52) % MCHC (32-36) g/dL RDW Std Deviation (36.4-46.3) fL RDW Coeff of Robby (11.5-14.5) % Neut # (Auto) (1.4-6.5) K/uL Greer # (Auto) (0.11-0.59) K/uL Immature Gran # (Auto) (0.00-0.02) K/uL POC pH (7.35-7.45) POC pCO2 79 H 76 H (35-46) mmHg POC pO2 69 L 68 L (80-95) mmHg POC HCO3 46 H 46 H (19-24) feliz/L POC Total CO2 > 40 H* > 40 H* (24-31) mmol/L POC Base Excess 21.0 H 21.0 H (-9-1.8) feliz/L ABG pCO2 (Temp Corrct 81 H 78 H (35-46) mmHg POC ABG O2 Sat (90-95) % POC Sodium 145 H (135-144) mmol/L Sodium 149 H (136-145) mmol/L Chloride 108 H (98-107) mmol/L Carbon Dioxide 36 H (21-32) mmol/L BUN/Creatinine Ratio 28.6 H (10-20) POC Glucose (70-99) mg/dl Calcium 7.2 L (8.5-10.1) mg/dl Phosphorus 1.8 L (2.5-4.9) mg/dl Magnesium 1.6 L (1.7-2.4) mg/dl Prealbumin 10.0 L (20-40) mg/dl 12/14/21 12/14/21 Range/Units 06:47 06:48 WBC 12.47 H (4.8-10.8) K/uL RBC 2.81 L (4.7-6.1) M/uL Hgb 8.2 L (14.0-18.0) g/dL POC Hgb (14.0-18.0) g/dl Hct 27.7 L (42-52) % POC Hct (42-52) % MCHC 29.6 L (32-36) g/dL RDW Std Deviation 55.4 H (36.4-46.3) fL RDW Coeff of Robby 15.6 H (11.5-14.5) % Neut # (Auto) 10.15 H (1.4-6.5) K/uL Greer # (Auto) 0.61 H (0.11-0.59) K/uL Immature Gran # (Auto) 0.03 H (0.00-0.02) K/uL POC pH (7.35-7.45) POC pCO2 (35-46) mmHg POC pO2 (80-95) mmHg POC HCO3 (19-24) feliz/L POC Total CO2 (24-31) mmol/L POC Base Excess (-9-1.8) feliz/L ABG pCO2 (Temp Corrct (35-46) mmHg POC ABG O2 Sat (90-95) % POC Sodium (135-144) mmol/L Sodium (136-145) mmol/L Chloride (98-107) mmol/L Carbon Dioxide (21-32) mmol/L BUN/Creatinine Ratio (10-20) POC Glucose 100 H (70-99) mg/dl Calcium (8.5-10.1) mg/dl Phosphorus (2.5-4.9) mg/dl Magnesium (1.7-2.4) mg/dl Prealbumin (20-40) mg/dl Diagnostic Findings Chest X-Ray 12/14/21 07:00 XR chest 1V portable CLINICAL HISTORY: Resp failure. Follow-up bilateral airspace opacities COMPARISON STUDY: 12/13/2021 TECHNIQUE: 1 view of the chest FINDINGS: Single frontal view of the chest demonstrates the cardiomediastinal silhouette to be within normal limits. Tracheostomy tube is unchanged. Compared to the previous examination, bilateral interstitial and alveolar opacities are again seen and essentially unchanged. There is also evidence for bilateral pleural effusions layering along the posterior gutters. There is no evidence for vascular congestion. There is no acute osseous pathology. IMPRESSION: Bilateral interstitial and alveolar opacities are again seen and essentially unchanged. There is also evidence for bilateral pleural effusions layering along the posterior gutters. ACT 112: Negative or not required by law. Electronically signed by: El Rebolledo M.D. 12/14/2021 9:04 AM Coding Level of Care Code Critical Care 1st 30-74 mins Diagnoses Acute hypoxemic respiratory failure due to COVID-19 U07.1; J96.01 COVID-19 U07.1 Lung fibrosis J84.10 ARDS (adult respiratory distress syndrome) J80 Bacteremia R78.81
--- NOTE | 2021-12-14 15:29 | Hospitalist Progress Note ---
Date of Service December 14, 2021 Assessment & Plan (1) Acute respiratory failure: (2) ARDS (adult respiratory distress syndrome): (3) 2019 novel coronavirus-infected pneumonia (NCIP): Plan: Respiratory failure 2/2 ARDS with fibrotic changes. Pneumomediastinum has resolved. Intubated on 11/20/21 --> 11/26/2021 tracheostomy status, on mechanical ventilation being managed per critical care team. Remains on ventilator in ICU, wean as tolerated. Completed dexamethasone. (4) Bacteremia: Plan: Continues on Vanc. Blood cultures growing [employer]. Abx stopped after 8 days. 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 Cont Lovenox. Plan: Plan for LTAC DNR/DNI Mira James DO [facility] Hospitalist Admission and Anticipated Discharge Date Admission Date: November 03, 2021 Subjective 56 yo M admitted for acute respiratory failure 2/2 covid pneumonia. S/p trach and PEG appears clear and following commands. some leak around trach so patient is able to vocalize some sounds States the noise from the machines is driving him crazy. is emotional and states he told her he wished he was . Patient appears open to trying some headphones and smiles on occasion appropriately Still weak, denies pain or trouble breathing Denies abdominal pain Review of Systems Review of Systems: All systems were reviewed and negative except as indicated above. Physical Exam Physical Exam: CONSTITUTIONAL: WNWD, vitals as above, generally NAD, vented. EYES: normal conjunctivae, no scleral icterus ENT: external ear and nose normal NECK: trachea midline, trach in place. RESPIRATORY: clear to auscultation throughout, no rales or wheezes CARDIOVASCULAR: regular rate and rhythm, S1 and 2 heard without murmurs, gallops or rubs, no JVD, 3+ pitting edema bilaterally CHEST: inspection of chest was normal GASTROINTESTINAL: soft, nontender, ND, no guarding, PEG site clean and dry. MUSCULOSKELETAL: generalized weakness, cannot assess 2/2 fatigue and ? confusion SKIN: warm and dry NEUROLOGIC: CN 2-12 grossly intact, cannot speak 2/2 trach and vent, somnolent and confused. Results & Data Results & Data ([facility]) Vital Signs (Past 12 Hours) Vital Signs Temp Pulse Resp BP Pulse Ox 12/14/21 14:00 115 H 33 H 88 L 12/14/21 13:00 111 H 36 H 139/78 12/14/21 12:30 37.4 C 118 H 17 116/79 82 L 12/14/21 12:00 37.4 C 103 H 9 L 123/72 92 12/14/21 11:30 37.3 C 107 H 11 L 127/72 92 12/14/21 11:00 37.2 C 114 H 20 128/71 91 12/14/21 10:30 37.4 C 116 H 32 H 110/67 100 12/14/21 10:00 37.4 C 116 H 32 H 124/75 99 12/14/21 09:30 37.4 C 105 H 32 H 124/68 97 12/14/21 09:00 37.4 C 112 H 13 135/75 96 12/14/21 08:54 111 H 35 H 94 12/14/21 08:30 37.4 C 111 H 14 108/75 95 12/14/21 08:00 37.5 C 113 H 31 H 127/66 96 12/14/21 07:30 37.4 C 108 H 32 H 113/66 98 12/14/21 07:00 37.4 C 119 H 34 H 131/64 95 12/14/21 05:30 37.4 C 108 H 25 H 123/66 90 12/14/21 05:00 37.4 C 116 H 36 H 120/66 93 12/14/21 04:30 37.5 C 111 H 32 H 115/65 93 12/14/21 04:09 102 H 32 H 94 12/14/21 04:00 37.5 C 103 H 31 H 117/65 93 12/14/21 03:30 37.4 C 114 H 32 H 119/64 92 Laboratory Results Short CBC 12/14/21 12/14/21 Range/Units 04:51 06:48 WBC Cancelled 12.47 H Hgb Cancelled 8.2 L Hct Cancelled 27.7 L Plt Count Cancelled 307 BMP 12/14/21 04:51 Sodium 149 H Potassium 3.5 Chloride 108 H Carbon Dioxide 36 H BUN 18 Creatinine 0.63 Glucose 86 Calcium 7.2 L Diagnostic Findings Chest X-Ray 12/14/21 07:00 XR chest 1V portable CLINICAL HISTORY: Resp failure. Follow-up bilateral airspace opacities COMPARISON STUDY: 12/13/2021 TECHNIQUE: 1 view of the chest FINDINGS: Single frontal view of the chest demonstrates the cardiomediastinal silhouette to be within normal limits. Tracheostomy tube is unchanged. Compared to the previous examination, bilateral interstitial and alveolar opacities are again seen and essentially unchanged. There is also evidence for bilateral pleural effusions layering along the posterior gutters. There is no evidence for vascular congestion. There is no acute osseous pathology. IMPRESSION: Bilateral interstitial and alveolar opacities are again seen and essentially unchanged. There is also evidence for bilateral pleural effusions layering along the posterior gutters. ACT 112: Negative or not required by law. Electronically signed by: lE Rebolledo M.D. 12/14/2021 9:04 AM Medications Administered Current Inpatient Medications Acetaminophen (Acetaminophen Susp 500 Mg/15.6 Ml Udp) 500 mg PO Q6H PRN PRN Reason: Pain or Fever Stop: 12/27/21 13:07 Last Admin: 11/27/21 18:16 Dose: 500 mg Documented by: Clonazepam (Clonazepam 0.5 Mg Tab) 0.5 mg PO DAILY YANDEL Stop: 01/12/22 08:59 Last Admin: 12/14/21 09:16 Dose: 0.5 mg Documented by: Dextrose (Dextrose 50% 50 Ml Syringe) 25 - 50 ml IV UD PRN; Protocol PRN Reason: Hypoglycemia Protocol Stop: 12/21/21 12:14 Last Admin: 11/22/21 23:15 Dose: 25 ml Documented by: Docusate Sodium (Docusate Sodium Syrup 100 Mg/10 Ml Udc) 100 mg PO BID YANDEL Stop: 12/28/21 20:59 Last Admin: 12/14/21 09:18 Dose: 100 mg Documented by: Enoxaparin Sodium (Enoxaparin 80 Mg/0.8 Ml Syr) 80 mg SQ Q12H YANDEL Stop: 12/25/21 11:59 Last Admin: 12/14/21 13:05 Dose: 80 mg Documented by: Enteral Nutritional Formula (Peptamen 1.5 Sid 1,000 Ml Bag) 1,000 ml NG UD YANDEL; Protocol Stop: 01/02/22 12:59 Last Admin: 12/12/21 14:43 Dose: 1,000 ml Documented by: Fentanyl Citrate (Fentanyl Citrate 100 Mcg/2 Ml Vial) 50 mcg IV Q2H PRN PRN Reason: Pain Stop: 12/20/21 08:26 Last Admin: 12/14/21 09:16 Dose: 50 mcg Documented by: Glucagon (Glucagon For Inj 1 Mg Vial) 1 mg IM UD PRN; Protocol PRN Reason: Hypoglycemia Protocol Stop: 12/21/21 12:14 Glucose (Glucose 40% Gel 15 Gm Tube) 15 - 30 gm PO UD PRN; Protocol PRN Reason: Hypoglycemia Protocol Stop: 12/21/21 12:14 Glucose (Glucose 10 Tabs/Tube) 4 - 8 tabs PO UD PRN; Protocol PRN Reason: Hypoglycemia Protocol Stop: 12/21/21 12:14 Insulin Aspart (Insulin Aspart Per Unit) 0 units SC Q6 YANDEL Stop: 01/12/22 11:59 Last Admin: 12/14/21 13:18 Dose: Not Given Documented by: Lansoprazole (Lansoprazole 30 Mg Soltab) 30 mg NG QAM [facility] Stop: 01/12/22 08:59 Last Admin: 12/14/21 09:18 Dose: 30 mg Documented by: Midodrine (Midodrine Hcl 2.5 Mg Tab) 5 mg PO BID@0800,1700 [facility] Stop: 01/12/22 16:59 Last Admin: 12/14/21 09:19 Dose: 5 mg Documented by: Miscellaneous (Carbohydrates For Hypoglycemia ) 15 - 30 gm PO PRN PRN PRN Reason: Hypoglycemia Treatment Stop: 12/21/21 12:14 Miscellaneous (Icu Electrolyte Replacement Protocol) 1 ea N/A BID@06,18 [facility]; Protocol Stop: 12/18/21 17:59 Last Admin: 12/14/21 06:49 Dose: 1 ea Documented by: Miscellaneous Information (Pharmacy Glycemic Mgmt Consult) 1 ea N/A UD PRN PRN Reason: Consult Stop: 12/21/21 12:09 Ondansetron HCl (Ondansetron Inj 2 Mg/Ml 2 Ml Vial) 4 mg IV Q6H PRN PRN Reason: Nausea And Vomiting Stop: 01/12/22 20:30 Last Admin: 12/14/21 09:17 Dose: 4 mg Documented by: Sterile Water (Tube Feeding Water Flush) 200 ml PEG Q4H [facility] Stop: 01/12/22 08:13 Last Admin: 12/14/21 13:19 Dose: 200 ml Documented by:
[2021-12-15] MEDS: fentaNYL citrate 100 MCG/2 ML VIAL IV PRN (02:04)
[2021-12-15] MEDS: TUBE FEEDING WATER FLUSH PEG SCH ×6 (02:05→21:30)
[2021-12-15 05:10] LABS: iSTAT Allen Test Pass; iSTAT Art Bld Gas pCO2 Correct 62 mmHg (35-46); iSTAT Art Bld Gas pH Corrected 7.482 (7.35-7.45); iSTAT Arterial Blood Gas HCO3 46 meg/L (19-24); iSTAT Arterial Blood Gas pCO2 60 mmHg (35-46); iSTAT Arterial Blood Gas pH 7.49 (7.35-7.45); iSTAT Arterial Blood Gas pO2 82 mmHg (80-95); iSTAT Arterial Blood Gas pO2 C 86; iSTAT Carbon Dioxide > 40 mmol/L (24-31); iSTAT FiO2 60 %; iSTAT Hematocrit 23 % (42-52); iSTAT Hemoglobin 7.8 g/dl (14.0-18.0); iSTAT Potassium 3.5 mmol/L (3.3-5.0); iSTAT Site L Radial; iSTAT Sodium 145 mmol/L (135-144)
[2021-12-15 05:29] LABS: BUN Creatinine Ratio 31.5 (10-20); Calcium 8.6 mg/dl (8.5-10.1); Creatinine Clr Calc Pharmacy 106.7 ml/min; Est GFR (African American) 118.5 ml/min; Est GFR (Non-African American) 102.2 ml/min; Magnesium 1.9 mg/dl (1.7-2.4); Phosphorus 1.7 mg/dl (2.5-4.9); Potassium 3.9 mmol/L (3.5-5.1)
[2021-12-15] MEDS ORDERED: SODIUM PHOSPHATE 3 MMOL/1 ML INFUSION IV STA (06:05)
[2021-12-15 06:12] LABS: Basophils # (auto) 0.01 K/uL (0-0.2); Basophils % (auto) 0.1 %; Eosinophils # (auto) 0.32 K/uL (0-0.5); Eosinophils % (auto) 2.9 %; Hematocrit (blood only) 29.5 % (42-52); Hemoglobin 8.5 g/dL (14.0-18.0); Immature Granulocytes # (auto) 0.04 K/uL (0.00-0.02); Immature Granulocytes % (auto) 0.4 %; Lymphocytes # (auto) 1.31 K/uL (1.2-3.4); Lymphocytes % (auto) 11.7 %; Mean Corpuscular Hemoglobin 28.4 pg (25-34); Mean Corpuscular Hgb Conc 28.8 g/dL (32-36); Mean Corpuscular Volume 98.7 fL (80-100); Mean Platelet Volume 10.2 fL (7.4-10.4); Monocytes % (auto) 5.4 %; Neutrophils # (auto) 8.87 K/uL (1.4-6.5); Neutrophils % (auto) 79.5 %; Platelet Count 324 K/uL (130-400); RDW Coefficient of Variation 15.8 % (11.5-14.5); RDW Standard Deviation 56.3 fL (36.4-46.3); Red Blood Count 2.99 M/uL (4.7-6.1); White Blood Count 11.15 K/uL (4.8-10.8)
[2021-12-15] MEDS ORDERED: SODIUM PHOSPHATE 21 MMOL in DEXTROSE 5% 500 ML IV ONE (06:30)
[2021-12-15] MEDS: MAGNESIUM OXIDE 400 MG TAB NG SCH ×2 (06:40→09:25)
[2021-12-15] MEDS: INSULIN ASPART PER UNIT SC SCH ×3 (06:40→17:05)
[2021-12-15] MEDS: POTASSIUM CHLORIDE 20 MEQ/15 ML UDC NG SCH ×2 (06:41→09:25)
[2021-12-15] MEDS: ICU ELECTROLYTE REPLACEMENT PROTOCOL SCH ×2 (06:49→09:25)
[2021-12-15] MEDS: DOCUSATE SODIUM SYRUP 100 MG/10 ML UDC PO SCH ×2 (07:21→21:31)
[2021-12-15] MEDS: MIDODRINE HCL 2.5 MG TAB PO SCH (09:24)
[2021-12-15] MEDS: clonazePAM 0.5 MG TAB PO SCH (09:24)
[2021-12-15] MEDS: LANSOPRAZOLE 30 MG SOLTAB NG SCH (09:25)
[2021-12-15] MEDS: ONDANSETRON INJ 2 MG/ML 2 ML VIAL IV PRN (09:25)
--- NOTE | 2021-12-15 09:31 | Critical Care Progress Note ---
Date of Service December 15, 2021 Assessment & Plan Admission and Anticipated Discharge Date Admission Date: November 03, 2021 Results & Data Results & Data ([facility]) Vital Signs (Past 12 Hours) Vital Signs Temp Pulse Resp BP Pulse Ox 12/15/21 07:45 83 36 H 93 12/15/21 07:00 104 H 22 127/78 96 12/15/21 06:00 101 H 25 H 97 12/15/21 05:00 104 H 22 134/79 95 12/15/21 04:30 110 H 33 H 93 12/15/21 04:00 105 H 0 L 111/69 94 12/15/21 03:00 104 H 4 L 116/70 97 12/15/21 02:00 115 H 23 115/79 93 12/15/21 01:00 112 H 29 H 113/77 93 12/15/21 00:00 36.7 C 102 H 5 L 104/59 L 90 12/14/21 23:30 112 H 33 H 88 L 12/14/21 23:00 113 H 32 H 112/62 91 12/14/21 22:00 109 H 32 H 97/62 L 95
--- NOTE | 2021-12-15 10:14 | Critical Care Progress Note ---
Date of Service December 15, 2021 Assessment & Plan (1) Acute hypoxemic respiratory failure due to COVID-19: (2) COVID-19: (3) Lung fibrosis: (4) ARDS (adult respiratory distress syndrome): (5) Bacteremia: Plan: Recommendations: Neuro: Currently on Klonopin 0.5 mg daily, weaning to off as well as as needed fentanyl. Continue to try and mobilize as tolerated. PT and OT in progress. Add prozac 20 mg. Cardiovascular: Hypotension resolved. Off pressors now. oral midodrine discontinue. Remains tachycardic. Respiratory: Respiratory failure secondary to ARDS with significant fibrotic changes. Pneumomediastinum has resolved. Continue to wean ventilator as tolerated. Continue attempts to transition to pressure support ventilation as tolerated. Trach upsized to 8 cuffed Shiley, still some leak. Remains hypercarbic with very stiff lungs and poor compliance. May need evaluation for lung transplant at some point. Required PC ventilation overnight secondary to hypercarbia and cuff leak. Cuff lead is intermittent, Cuff pressure is holding- can progress back to CPAP and hopeful for OOB today with resting on PC ventilation as needed. Renal/lytes Kidney function back to normal. Electrolyte replacement as needed. Try and keep on slight negative balance. He does have evidence of peripheral edema. Echo showed collapsibility of IVC suggestive of intravascular volume depletion. Acid-base status does demonstrate significant respiratory acidosis. Continue free water via PEG tube: 200 mL every 4. Replace calcium- continue with electrolyte replacement protocol : link catheter discontinue today- transition to condom catheter or bladder scans with straight cath for bladder training if needed. start prazosin bid. ID: Coag negative staph in blood 3 out of 4 bottles. Stopped after 8 days vancomycin white count and fever curve are better. Surveillance cultures negative. Heme:-History of factor V Leiden with acute DVT. On therapeutic Lovenox. Mild anemia. No signs of bleeding. Start warfarin 5 mg GI:Continue tube feeding. Check prealbumin. On Protonix Endo: Glycemic control per protocol. - Prophylaxis VTE: Lovenox therapeutic: Starting warfarin GI: Protonix once daily he is appropriate for transfer to LTAC, awaiting approval by insurance CRITICAL CARE TIME - I have personally spent 45 minutes of critical care time in the direct manageme nt of this patient. This is a life/limb threatening event. This includes time spent evaluating patient, direct bedside care, chart review, placing orders, interpretation of diagnostic studies, discussion with consultants, patient, and family members, as well as other required patient management activities. This time is exclusive of all separately billable procedures, and teaching time and separate from and in addition to any other critical care service time. Admission and Anticipated Discharge Date Admission Date: November 03, 2021 Subjective No overnight events Review of Systems Review of Systems: unable to fully review secondary to mechanical ventilation Physical Exam Physical Exam: General: Alert following commands Skin: Warm, dry, Head: Atraumatic Ears, nose, mouth and throat: airway airway patent, tracheostomy tube in place Cardiovascular: Normal peripheral perfusion, tachycardic Respiratory: Ventilator settings reviewed Gastrointestinal: Non distended Musculoskeletal: No deformity Results & Data Results & Data ([facility]) Vital Signs (Past 12 Hours) Vital Signs Temp Pulse Resp BP Pulse Ox 12/15/21 09:00 110 H 15 126/75 97 12/15/21 08:00 99 H 10 L 118/76 97 12/15/21 07:45 83 36 H 93 12/15/21 07:00 104 H 22 127/78 96 12/15/21 06:00 101 H 25 H 97 12/15/21 05:00 104 H 22 134/79 95 12/15/21 04:30 110 H 33 H 93 12/15/21 04:00 105 H 0 L 111/69 94 12/15/21 03:00 104 H 4 L 116/70 97 12/15/21 02:00 115 H 23 115/79 93 12/15/21 01:00 112 H 29 H 113/77 93 12/15/21 00:00 36.7 C 102 H 5 L 104/59 L 90 12/14/21 23:30 112 H 33 H 88 L 12/14/21 23:00 113 H 32 H 112/62 91 Laboratory Results 12/15/21 12/15/21 12/15/21 Range/Units 06:35 04:52 04:23 WBC 11.15 H (4.8-10.8) K/uL RBC 2.99 L (4.7-6.1) M/uL Hgb 8.5 L (14.0-18.0) g/dL POC Hgb 7.8 L (14.0-18.0) g/dl Hct 29.5 L (42-52) % POC Hct 23 L (42-52) % MCV 98.7 (80-100) fL MCH 28.4 (25-34) pg MCHC 28.8 L (32-36) g/dL RDW Std Deviation 56.3 H (36.4-46.3) fL RDW Coeff of Robby 15.8 H (11.5-14.5) % Plt Count 324 (130-400) K/uL MPV 10.2 (7.4-10.4) fL Immature Gran % (Auto) 0.4 % Neut % (Auto) 79.5 % Lymph % (Auto) 11.7 % [place] % (Auto) 5.4 % Eos % (Auto) 2.9 % Baso % (Auto) 0.1 % Neut # (Auto) 8.87 H (1.4-6.5) K/uL Lymph # (Auto) 1.31 (1.2-3.4) K/uL [place] # (Auto) 0.60 H (0.11-0.59) K/uL Eos # (Auto) 0.32 (0-0.5) K/uL Baso # (Auto) 0.01 (0-0.2) K/uL Immature Gran # (Auto) 0.04 H (0.00-0.02) K/uL Sample Site L Radial POC pH 7.49 H (7.35-7.45) POC pCO2 60 H (35-46) mmHg POC pO2 82 (80-95) mmHg POC HCO3 46 H (19-24) feliz/L POC Total CO2 > 40 H* (24-31) mmol/L POC Base Excess 23.0 H (-9-1.8) feliz/L ABG pH (Temp Correct) 7.482 H (7.35-7.45) ABG pCO2 (Temp Corrct 62 H (35-46) mmHg POC ABG pO2 at Pt Temp 86 POC ABG O2 Sat 96.0 H (90-95) % Francisco Test Pass O2 Delivery Device Ventilator POC O2 Rate 32 POC FiO2 60 % PEEP 8 POC Sodium 145 H (135-144) mmol/L Sodium (136-145) mmol/L POC Potassium 3.5 (3.3-5.0) mmol/L Potassium (3.5-5.1) mmol/L Chloride (98-107) mmol/L Carbon Dioxide (21-32) mmol/L Anion Gap (3-11) BUN (6-23) mg/dl Creatinine (0.6-1.4) mg/dl Est Cr Clr Drug Dosing ml/min Est GFR ( Amer) ml/min Est GFR (Non-Af Amer) ml/min BUN/Creatinine Ratio (10-20) Glucose (70-99(Fasting)) mg/dl POC Glucose 123 H (70-99) mg/dl Calcium (8.5-10.1) mg/dl Phosphorus (2.5-4.9) mg/dl Magnesium (1.7-2.4) mg/dl 12/15/21 12/14/21 12/14/21 Range/Units 04:18 23:43 16:35 WBC (4.8-10.8) K/uL RBC (4.7-6.1) M/uL Hgb (14.0-18.0) g/dL POC Hgb (14.0-18.0) g/dl Hct (42-52) % POC Hct (42-52) % MCV (80-100) fL MCH (25-34) pg MCHC (32-36) g/dL RDW Std Deviation (36.4-46.3) fL RDW Coeff of Robby (11.5-14.5) % Plt Count (130-400) K/uL MPV (7.4-10.4) fL Immature Gran % (Auto) % Neut % (Auto) % Lymph % (Auto) % [place] % (Auto) % Eos % (Auto) % Baso % (Auto) % Neut # (Auto) (1.4-6.5) K/uL Lymph # (Auto) (1.2-3.4) K/uL [place] # (Auto) (0.11-0.59) K/uL Eos # (Auto) (0-0.5) K/uL Baso # (Auto) (0-0.2) K/uL Immature Gran # (Auto) (0.00-0.02) K/uL Sample Site POC pH (7.35-7.45) POC pCO2 (35-46) mmHg POC pO2 (80-95) mmHg POC HCO3 (19-24) feliz/L POC Total CO2 (24-31) mmol/L POC Base Excess (-9-1.8) feliz/L ABG pH (Temp Correct) (7.35-7.45) ABG pCO2 (Temp Corrct (35-46) mmHg POC ABG pO2 at Pt Temp POC ABG O2 Sat (90-95) % Francisco Test O2 Delivery Device POC O2 Rate POC FiO2 % PEEP POC Sodium (135-144) mmol/L Sodium 147 H (136-145) mmol/L POC Potassium (3.3-5.0) mmol/L Potassium 3.9 (3.5-5.1) mmol/L Chloride 100 (98-107) mmol/L Carbon Dioxide 44 H* (21-32) mmol/L Anion Gap 3 (3-11) BUN 23 (6-23) mg/dl Creatinine 0.73 (0.6-1.4) mg/dl Est Cr Clr Drug Dosing 106.7 ml/min Est GFR ( Amer) 118.5 ml/min Est GFR (Non-Af Amer) 102.2 ml/min BUN/Creatinine Ratio 31.5 H (10-20) Glucose 137 H (70-99(Fasting)) mg/dl POC Glucose 122 H 110 H (70-99) mg/dl Calcium 8.6 (8.5-10.1) mg/dl Phosphorus 1.7 L (2.5-4.9) mg/dl Magnesium 1.9 (1.7-2.4) mg/dl 12/14/21 Range/Units 12:55 WBC (4.8-10.8) K/uL RBC (4.7-6.1) M/uL Hgb (14.0-18.0) g/dL POC Hgb (14.0-18.0) g/dl Hct (42-52) % POC Hct (42-52) % MCV (80-100) fL MCH (25-34) pg MCHC (32-36) g/dL RDW Std Deviation (36.4-46.3) fL RDW Coeff of Robby (11.5-14.5) % Plt Count (130-400) K/uL MPV (7.4-10.4) fL Immature Gran % (Auto) % Neut % (Auto) % Lymph % (Auto) % [place] % (Auto) % Eos % (Auto) % Baso % (Auto) % Neut # (Auto) (1.4-6.5) K/uL Lymph # (Auto) (1.2-3.4) K/uL [place] # (Auto) (0.11-0.59) K/uL Eos # (Auto) (0-0.5) K/uL Baso # (Auto) (0-0.2) K/uL Immature Gran # (Auto) (0.00-0.02) K/uL Sample Site POC pH (7.35-7.45) POC pCO2 (35-46) mmHg POC pO2 (80-95) mmHg POC HCO3 (19-24) feliz/L POC Total CO2 (24-31) mmol/L POC Base Excess (-9-1.8) feliz/L ABG pH (Temp Correct) (7.35-7.45) ABG pCO2 (Temp Corrct (35-46) mmHg POC ABG pO2 at Pt Temp POC ABG O2 Sat (90-95) % Francisco Test O2 Delivery Device POC O2 Rate POC FiO2 % PEEP POC Sodium (135-144) mmol/L Sodium (136-145) mmol/L POC Potassium (3.3-5.0) mmol/L Potassium (3.5-5.1) mmol/L Chloride (98-107) mmol/L Carbon Dioxide (21-32) mmol/L Anion Gap (3-11) BUN (6-23) mg/dl Creatinine (0.6-1.4) mg/dl Est Cr Clr Drug Dosing ml/min Est GFR ( Amer) ml/min Est GFR (Non-Af Amer) ml/min BUN/Creatinine Ratio (10-20) Glucose (70-99(Fasting)) mg/dl POC Glucose 96 (70-99) mg/dl Calcium (8.5-10.1) mg/dl Phosphorus (2.5-4.9) mg/dl Magnesium (1.7-2.4) mg/dl Coding Level of Care Code Critical Care 1st 30-74 mins Diagnoses Acute hypoxemic respiratory failure due to COVID-19 U07.1; J96.01 COVID-19 U07.1 Lung fibrosis J84.10 ARDS (adult respiratory distress syndrome) J80 Bacteremia R78.81
[2021-12-15] MEDS ORDERED: FLUoxetine HCL 20 MG CAP PO SCH (10:15)
[2021-12-15] MEDS: ENOXAPARIN 80 MG/0.8 ML SYR SQ SCH (11:15)
--- NOTE | 2021-12-15 11:44 | Hospitalist Progress Note ---
Date of Service December 15, 2021 Assessment & Plan (1) Acute respiratory failure: (2) ARDS (adult respiratory distress syndrome): (3) 2019 novel coronavirus-infected pneumonia (NCIP): Plan: Respiratory failure 2/2 ARDS with fibrotic changes. Pneumomediastinum has resolved. Intubated on 11/20/21 --> 11/26/2021 tracheostomy status, on mechanical ventilation being managed per critical care team. Remains on ventilator in ICU, wean as tolerated. Completed dexamethasone. 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 Vanc stopped after 8 days. Remains afebrile and well appearing clinically. 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 Cont Lovenox. Plan: Plan for LTAC once off vent and more stable. DNR/DNI Mira James DO [facility] Hospitalist Admission and Anticipated Discharge Date Admission Date: November 03, 2021 Subjective 56 yo M admitted for acute respiratory failure 2/2 covid pneumonia. S/p trach and PEG appears clear and following commands. some leak around trach so patient is able to vocalize some sounds appears less anxious just completed a rundown of detailed events from his hospital stay with the ICU nurse. Denies pain or difficulty breathing Review of Systems Review of Systems: All systems were reviewed and negative except as indicated above. Limitations as patient is trached and with mechanical ventilation. Physical Exam Physical Exam: CONSTITUTIONAL: WNWD, vitals as above, generally NAD EYES: normal conjunctivae, no scleral icterus ENT: external ear and nose normal NECK: trachea midline, trach in place. RESPIRATORY: clear to auscultation throughout, no rales or wheezes CARDIOVASCULAR: regular rate and rhythm, S1 and 2 heard without murmurs, gallops or rubs, no JVD, 3+ pitting edema bilaterally CHEST: inspection of chest was normal GASTROINTESTINAL: soft, nontender, ND, no guarding, PEG site clean and dry. MUSCULOSKELETAL: generalized weakness, no gross focal deficits but patient is still very weak SKIN: warm and dry NEUROLOGIC: CN 2-12 grossly intact, no gross focal deficits. Results & Data Results & Data ([facility]) Vital Signs (Past 12 Hours) Vital Signs Temp Pulse Resp BP Pulse Ox 12/15/21 10:00 108 H 12 124/74 95 12/15/21 09:00 110 H 15 126/75 97 12/15/21 08:00 99 H 10 L 118/76 97 12/15/21 07:45 83 36 H 93 12/15/21 07:00 104 H 22 127/78 96 12/15/21 06:00 101 H 25 H 97 12/15/21 05:00 104 H 22 134/79 95 12/15/21 04:30 110 H 33 H 93 12/15/21 04:00 105 H 0 L 111/69 94 12/15/21 03:00 104 H 4 L 116/70 97 12/15/21 02:00 115 H 23 115/79 93 12/15/21 01:00 112 H 29 H 113/77 93 12/15/21 00:00 36.7 C 102 H 5 L 104/59 L 90 Laboratory Results Short CBC 12/15/21 Range/Units 04:23 WBC 11.15 H (4.8-10.8) K/uL Hgb 8.5 L (14.0-18.0) g/dL Hct 29.5 L (42-52) % Plt Count 324 (130-400) K/uL BMP 12/15/21 04:18 Sodium 147 H Potassium 3.9 Chloride 100 Carbon Dioxide 44 H* BUN 23 Creatinine 0.73 Glucose 137 H Calcium 8.6 Medications Administered Current Inpatient Medications Acetaminophen (Acetaminophen Susp 500 Mg/15.6 Ml Udp) 500 mg PO Q6H PRN PRN Reason: Pain or Fever Stop: 12/27/21 13:07 Last Admin: 11/27/21 18:16 Dose: 500 mg Documented by: Atorvastatin Calcium (Atorvastatin 20 Mg Tab) 20 mg PO DAILY YANDEL Stop: 01/15/22 08:59 Clonazepam (Clonazepam 0.5 Mg Tab) 0.5 mg PO DAILY YANDEL Stop: 01/12/22 08:59 Last Admin: 12/15/21 09:24 Dose: 0.5 mg Documented by: Dextrose (Dextrose 50% 50 Ml Syringe) 25 - 50 ml IV UD PRN; Protocol PRN Reason: Hypoglycemia Protocol Stop: 12/21/21 12:14 Last Admin: 11/22/21 23:15 Dose: 25 ml Documented by: Docusate Sodium (Docusate Sodium Syrup 100 Mg/10 Ml Udc) 100 mg PO BID YANDEL Stop: 12/28/21 20:59 Last Admin: 12/15/21 07:21 Dose: Not Given Documented by: Enoxaparin Sodium (Enoxaparin 80 Mg/0.8 Ml Syr) 80 mg SQ Q12H [facility] Stop: 12/25/21 11:59 Last Admin: 12/15/21 11:15 Dose: 80 mg Documented by: Enteral Nutritional Formula (Peptamen 1.5 Sid 1,000 Ml Bag) 1,000 ml NG UD [facility]; Protocol Stop: 01/02/22 12:59 Last Admin: 12/12/21 14:43 Dose: 1,000 ml Documented by: Fentanyl Citrate (Fentanyl Citrate 100 Mcg/2 Ml Vial) 50 mcg IV Q2H PRN PRN Reason: Pain Stop: 12/20/21 08:26 Last Admin: 12/15/21 02:04 Dose: 50 mcg Documented by: Fluoxetine HCl (Fluoxetine Hcl 20 Mg/5 Ml Udp) 20 mg PO DAILY [facility] Stop: 01/14/22 10:14 Glucagon (Glucagon For Inj 1 Mg Vial) 1 mg IM UD PRN; Protocol PRN Reason: Hypoglycemia Protocol Stop: 12/21/21 12:14 Glucose (Glucose 40% Gel 15 Gm Tube) 15 - 30 gm PO UD PRN; Protocol PRN Reason: Hypoglycemia Protocol Stop: 12/21/21 12:14 Glucose (Glucose 10 Tabs/Tube) 4 - 8 tabs PO UD PRN; Protocol PRN Reason: Hypoglycemia Protocol Stop: 12/21/21 12:14 Sodium Phosphate 21 mmol/ (Dextrose) 507 mls @ 88 mls/hr IV ONE ONE Stop: 12/15/21 12:15 Last Admin: 12/15/21 06:41 Dose: 88 mls/hr Documented by: Insulin Aspart (Insulin Aspart Per Unit) 0 units SC Q6 [facility] Stop: 01/12/22 11:59 Last Admin: 12/15/21 11:18 Dose: Not Given Documented by: Lansoprazole (Lansoprazole 30 Mg Soltab) 30 mg NG QAM [facility] Stop: 01/12/22 08:59 Last Admin: 12/15/21 09:25 Dose: 30 mg Documented by: Miscellaneous (Carbohydrates For Hypoglycemia ) 15 - 30 gm PO PRN PRN PRN Reason: Hypoglycemia Treatment Stop: 12/21/21 12:14 Miscellaneous (Icu Electrolyte Replacement Protocol) 1 ea N/A BID@06,18 [facility]; Protocol Stop: 12/18/21 17:59 Last Admin: 12/15/21 09:25 Dose: Not Given Documented by: Miscellaneous Information (Pharmacy Glycemic Mgmt Consult) 1 ea N/A UD PRN PRN Reason: Consult Stop: 12/21/21 12:09 Ondansetron HCl (Ondansetron Inj 2 Mg/Ml 2 Ml Vial) 4 mg IV Q6H PRN PRN Reason: Nausea And Vomiting Stop: 01/12/22 20:30 Last Admin: 12/15/21 09:25 Dose: 4 mg Documented by: Prazosin HCl (Prazosin Hcl 1 Mg Cap) 2 mg PO BID [facility] Stop: 01/14/22 20:59 Sterile Water (Tube Feeding Water Flush) 200 ml PEG Q4H [facility] Stop: 01/12/22 08:13 Last Admin: 12/15/21 11:18 Dose: 200 ml Documented by: Warfarin Sodium (Warfarin Sod 5 Mg Tab) 5 mg PO TODAY@1600 ONE Stop: 12/15/21 16:01
[2021-12-15] MEDS ORDERED: WARFARIN SOD 5 MG TAB PO ONE (16:00)
[2021-12-15] MEDS ORDERED: METOPROLOL TARTRATE 1 MG/ML VIAL IV SCH (20:00)
[2021-12-15] MEDS: PRAZOSIN HCL 1 MG CAP PO SCH (21:30)
[2021-12-16] MEDS: INSULIN ASPART PER UNIT SC SCH ×3 (00:02→12:31)
[2021-12-16] MEDS: ENOXAPARIN 80 MG/0.8 ML SYR SQ SCH ×2 (00:03→12:24)
[2021-12-16] MEDS: TUBE FEEDING WATER FLUSH PEG SCH ×6 (00:06→20:20)
[2021-12-16] MEDS ORDERED: ALBUMIN 5% 250 ML IV ONE ×2 (02:01→22:15)
[2021-12-16 05:06] LABS: iSTAT Allen Test Pass; iSTAT Art Bld Gas pCO2 Correct 82 mmHg (35-46); iSTAT Art Bld Gas pH Corrected 7.355 (7.35-7.45); iSTAT Arterial Blood Gas HCO3 46 meg/L (19-24); iSTAT Arterial Blood Gas pCO2 83 mmHg (35-46); iSTAT Arterial Blood Gas pH 7.35 (7.35-7.45); iSTAT Arterial Blood Gas pO2 82 mmHg (80-95); iSTAT Arterial Blood Gas pO2 C 79; iSTAT Carbon Dioxide > 40 mmol/L (24-31); iSTAT FiO2 80 %; iSTAT Hematocrit 21 % (42-52); iSTAT Hemoglobin 7.1 g/dl (14.0-18.0); iSTAT Potassium 3.9 mmol/L (3.3-5.0); iSTAT Site L Radial; iSTAT Sodium 144 mmol/L (135-144)
[2021-12-16 06:13] LABS: Basophils # (auto) 0.01 K/uL (0-0.2); Basophils % (auto) 0.1 %; Eosinophils # (auto) 0.21 K/uL (0-0.5); Eosinophils % (auto) 2.3 %; Hematocrit (blood only) 24.9 % (42-52); Hemoglobin 7.4 g/dL (14.0-18.0); Immature Granulocytes # (auto) 0.01 K/uL (0.00-0.02); Immature Granulocytes % (auto) 0.1 %; Lymphocytes # (auto) 1.06 K/uL (1.2-3.4); Lymphocytes % (auto) 11.7 %; Mean Corpuscular Hemoglobin 29.1 pg (25-34); Mean Corpuscular Hgb Conc 29.7 g/dL (32-36); Monocytes # (auto) 0.43 K/uL (0.11-0.59); Monocytes % (auto) 4.7 %; Neutrophils # (auto) 7.36 K/uL (1.4-6.5); Neutrophils % (auto) 81.1 %; Platelet Count 233 K/uL (130-400); RDW Coefficient of Variation 16.1 % (11.5-14.5); RDW Standard Deviation 56.7 fL (36.4-46.3); Red Blood Count 2.54 M/uL (4.7-6.1); White Blood Count 9.08 K/uL (4.8-10.8)
[2021-12-16 06:41] LABS: BUN Creatinine Ratio 28.2 (10-20); Calcium 8.2 mg/dl (8.5-10.1); Creatinine Clr Calc Pharmacy 99.9 ml/min; Est GFR (African American) 115.3 ml/min; Est GFR (Non-African American) 99.5 ml/min; Magnesium 1.9 mg/dl (1.7-2.4); Phosphorus 2.7 mg/dl (2.5-4.9); Potassium 3.9 mmol/L (3.5-5.1)
--- NOTE | 2021-12-16 06:51 | Critical Care Progress Note ---
Date of Service December 16, 2021 Assessment & Plan (1) Acute hypoxemic respiratory failure due to COVID-19: (2) COVID-19: (3) Lung fibrosis: (4) ARDS (adult respiratory distress syndrome): (5) Factor V Leiden carrier: (6) Bacteremia: Plan: Neuro: Currently on Klonopin 0.5 mg daily, discontinued today as well as as needed fentanyl. Continue to try and mobilize as tolerated. PT and OT in progress. Prozac 20 mg. Cardiovascular: Hypotension resolved. Off pressors now. oral midodrine discontinue. Remains tachycardic. Adding propranolol, 10 mg 3 times daily, for anticatabolic effects and persistent tachycardia Respiratory: Respiratory failure secondary to ARDS with significant fibrotic changes. Pneumomediastinum has resolved. Tolerated high flow via tracheostomy yesterday we will continue today. Trach upsized to 8 cuffed Shiley, still some leak. Remains hypercarbic with very stiff lungs and poor compliance. May need evaluation for lung transplant at some point. Renal/lytes Kidney function back to normal. Electrolyte replacement as needed. Try and keep on slight negative balance. He does have evidence of peripheral edema. Echo showed collapsibility of IVC suggestive of intravascular volume depletion. Acid-base status does demonstrate significant respiratory acidosis. Continue free water via PEG tube: 200 mL every 4. Replace calcium- continue with electrolyte replacement protocol : Prazosin twice daily for urinary retention will consider discontinuing in the next 48 to 72 hours or once spontaneously voiding. Discontinuing straight catheter as patient is now being started on warfarin ID: Coag negative staph in blood 3 out of 4 bottles. Stopped after 8 days vancomycin white count and fever curve are better. Surveillance cultures negative. Heme:-History of factor V Leiden with acute DVT. On therapeutic Lovenox. Mild anemia. No signs of bleeding.warfarin 5 mg today GI:Continue tube feeding. Check prealbumin. On Protonix, adding minerals and zinc Endo: Glycemic control per protocol. Transition to 48-hour labs and continue to normalize patient with aggressive physical therapy, will discuss with pharmacy possibility of adding oxandrolone consideration given to factor V Leiden and DVT risk. Admission and Anticipated Discharge Date Admission Date: November 03, 2021 Supervising Physician Co-Signing Physician Notes Dr. Alaniz was resident physician during care of patient. I separately evaluated patient for orourke portions of the history and the exam. I was present during the critical portion of medical decision making, and I discussed the case with the resident. I generally agree with the findings and plan. I have personally spent 45 minutes of critical care time in the direct management of this patient. This is a life/limb threatening event. This includes time spent evaluating patient, direct bedside care, chart review, placing orders, interpretation of diagnostic studies, discussion with consultants, patient, and/or family members regarding treatment decisions, as well as other required patient management activities. This time is exclusive of all separately billable procedures, and teaching time and separate from and in addition to any other critical care service time. Subjective No overnight events Review of Systems Review of Systems: unable to fully review secondary to mechanical ventilation Physical Exam Physical Exam: General: Alert following commands HEENT: Atraumatic, PERRL, tracheostomy tube in place Cardiovascular: Tachycardic, regular rhythm. -mgr Respiratory: CTAB, -wrr Gastrointestinal: NTND, BS+x4 Musculoskeletal: No clubbing, no cyanosis. 1+ pitting edema BLE Skin: Warm and dry, no rashes or lesions Results & Data Results & Data ([facility]) Vital Signs (Past 12 Hours) Vital Signs Temp Pulse Pulse Resp BP Pulse Ox 12/16/21 06:00 105 H 33 H 120/58 L 90 12/16/21 05:17 94 12/16/21 05:00 106 H 27 H 92/46 L 95 12/16/21 04:37 99 H 21 96 12/16/21 04:00 36.5 C 108 H 22 85/50 L 95 12/16/21 03:00 115 H 29 H 92/66 L 88 L 12/16/21 02:00 104 H 21 79/44 L 96 12/16/21 01:00 100 H 20 105/57 L 95 12/16/21 00:00 116 H 33 H 87/46 L 94 12/15/21 23:23 119 H 31 H 93 12/15/21 23:00 103 H 23 85/46 L 91 12/15/21 22:00 107 H 34 H 123/65 93 12/15/21 21:00 107 H 30 H 132/67 98 12/15/21 20:53 123 H 123 H 33 H 92 12/15/21 20:00 110 H 28 H 131/72 95 12/15/21 19:00 104 H 23 138/73 93 Laboratory Results 12/16/21 12/16/21 12/16/21 Range/Units 07:43 06:12 05:45 WBC 9.08 (4.8-10.8) K/uL RBC 2.54 L (4.7-6.1) M/uL Hgb 7.4 L (14.0-18.0) g/dL POC Hgb (14.0-18.0) g/dl Hct 24.9 L (42-52) % POC Hct (42-52) % MCV 98.0 (80-100) fL MCH 29.1 (25-34) pg MCHC 29.7 L (32-36) g/dL RDW Std Deviation 56.7 H (36.4-46.3) fL RDW Coeff of Robby 16.1 H (11.5-14.5) % Plt Count 233 (130-400) K/uL MPV 10.0 (7.4-10.4) fL Immature Gran % (Auto) 0.1 % Neut % (Auto) 81.1 % Lymph % (Auto) 11.7 % Gilchrist % (Auto) 4.7 % Eos % (Auto) 2.3 % Baso % (Auto) 0.1 % Neut # (Auto) 7.36 H (1.4-6.5) K/uL Lymph # (Auto) 1.06 L (1.2-3.4) K/uL Gilchrist # (Auto) 0.43 (0.11-0.59) K/uL Eos # (Auto) 0.21 (0-0.5) K/uL Baso # (Auto) 0.01 (0-0.2) K/uL Immature Gran # (Auto) 0.01 (0.00-0.02) K/uL Stomatocytes 1+ PT 9.9 (9.0-12.0) Seconds INR 1.0 (0.9-1.1) Sample Site POC pH (7.35-7.45) POC pCO2 (35-46) mmHg POC pO2 (80-95) mmHg POC HCO3 (19-24) feliz/L POC Total CO2 (24-31) mmol/L POC Base Excess (-9-1.8) feliz/L ABG pH (Temp Correct) (7.35-7.45) ABG pCO2 (Temp Corrct (35-46) mmHg POC ABG pO2 at Pt Temp POC ABG O2 Sat (90-95) % Francisco Test O2 Delivery Device POC FiO2 % POC Sodium (135-144) mmol/L Sodium (136-145) mmol/L POC Potassium (3.3-5.0) mmol/L Potassium (3.5-5.1) mmol/L Chloride (98-107) mmol/L Carbon Dioxide (21-32) mmol/L Anion Gap (3-11) BUN (6-23) mg/dl Creatinine (0.6-1.4) mg/dl Est Cr Clr Drug Dosing ml/min Est GFR ( Amer) ml/min Est GFR (Non-Af Amer) ml/min BUN/Creatinine Ratio (10-20) Glucose (70-99(Fasting)) mg/dl POC Glucose 137 H (70-99) mg/dl Calcium (8.5-10.1) mg/dl Phosphorus (2.5-4.9) mg/dl Magnesium (1.7-2.4) mg/dl 12/16/21 12/16/21 12/16/21 Range/Units 05:45 04:52 04:28 WBC (4.8-10.8) K/uL RBC (4.7-6.1) M/uL Hgb (14.0-18.0) g/dL POC Hgb 7.1 L (14.0-18.0) g/dl Hct (42-52) % POC Hct 21 L (42-52) % MCV (80-100) fL MCH (25-34) pg MCHC (32-36) g/dL RDW Std Deviation (36.4-46.3) fL RDW Coeff of Robby (11.5-14.5) % Plt Count (130-400) K/uL MPV (7.4-10.4) fL Immature Gran % (Auto) % Neut % (Auto) % Lymph % (Auto) % Gilchrist % (Auto) % Eos % (Auto) % Baso % (Auto) % Neut # (Auto) (1.4-6.5) K/uL Lymph # (Auto) (1.2-3.4) K/uL Gilchrist # (Auto) (0.11-0.59) K/uL Eos # (Auto) (0-0.5) K/uL Baso # (Auto) (0-0.2) K/uL Immature Gran # (Auto) (0.00-0.02) K/uL Stomatocytes PT (9.0-12.0) Seconds INR (0.9-1.1) Sample Site L Radial POC pH 7.35 (7.35-7.45) POC pCO2 83 H (35-46) mmHg POC pO2 82 (80-95) mmHg POC HCO3 46 H (19-24) feliz/L POC Total CO2 > 40 H* (24-31) mmol/L POC Base Excess 20.0 H (-9-1.8) feliz/L ABG pH (Temp Correct) 7.355 (7.35-7.45) ABG pCO2 (Temp Corrct 82 H (35-46) mmHg POC ABG pO2 at Pt Temp 79 POC ABG O2 Sat 94.0 (90-95) % Francisco Test Pass O2 Delivery Device Hi Alex Can POC FiO2 80 % POC Sodium 144 (135-144) mmol/L Sodium 144 (136-145) mmol/L POC Potassium 3.9 (3.3-5.0) mmol/L Potassium 3.9 (3.5-5.1) mmol/L Chloride 100 (98-107) mmol/L Carbon Dioxide 43 H* (21-32) mmol/L Anion Gap 1 L (3-11) BUN 22 (6-23) mg/dl Creatinine 0.78 (0.6-1.4) mg/dl Est Cr Clr Drug Dosing 99.9 ml/min Est GFR ( Amer) 115.3 ml/min Est GFR (Non-Af Amer) 99.5 ml/min BUN/Creatinine Ratio 28.2 H (10-20) Glucose 126 H (70-99(Fasting)) mg/dl POC Glucose 143 H (70-99) mg/dl Calcium 8.2 L (8.5-10.1) mg/dl Phosphorus 2.7 D (2.5-4.9) mg/dl Magnesium 1.9 (1.7-2.4) mg/dl 12/15/21 12/15/2112/15/22 Range/Units 23:35 16:53 11:17 WBC (4.8-10.8) K/uL RBC (4.7-6.1) M/uL Hgb (14.0-18.0) g/dL POC Hgb (14.0-18.0) g/dl Hct (42-52) % POC Hct (42-52) % MCV (80-100) fL MCH (25-34) pg MCHC (32-36) g/dL RDW Std Deviation (36.4-46.3) fL RDW Coeff of Robby (11.5-14.5) % Plt Count (130-400) K/uL MPV (7.4-10.4) fL Immature Gran % (Auto) % Neut % (Auto) % Lymph % (Auto) % Gilchrist % (Auto) % Eos % (Auto) % Baso % (Auto) % Neut # (Auto) (1.4-6.5) K/uL Lymph # (Auto) (1.2-3.4) K/uL Gilchrist # (Auto) (0.11-0.59) K/uL Eos # (Auto) (0-0.5) K/uL Baso # (Auto) (0-0.2) K/uL Immature Gran # (Auto) (0.00-0.02) K/uL Stomatocytes PT (9.0-12.0) Seconds INR (0.9-1.1) Sample Site POC pH (7.35-7.45) POC pCO2 (35-46) mmHg POC pO2 (80-95) mmHg POC HCO3 (19-24) feliz/L POC Total CO2 (24-31) mmol/L POC Base Excess (-9-1.8) feliz/L ABG pH (Temp Correct) (7.35-7.45) ABG pCO2 (Temp Corrct (35-46) mmHg POC ABG pO2 at Pt Temp POC ABG O2 Sat (90-95) % Francisco Test O2 Delivery Device POC FiO2 % POC Sodium (135-144) mmol/L Sodium (136-145) mmol/L POC Potassium (3.3-5.0) mmol/L Potassium (3.5-5.1) mmol/L Chloride (98-107) mmol/L Carbon Dioxide (21-32) mmol/L Anion Gap (3-11) BUN (6-23) mg/dl Creatinine (0.6-1.4) mg/dl Est Cr Clr Drug Dosing ml/min Est GFR ( Amer) ml/min Est GFR (Non-Af Amer) ml/min BUN/Creatinine Ratio (10-20) Glucose (70-99(Fasting)) mg/dl POC Glucose 165 H 110 H 109 H (70-99) mg/dl Calcium (8.5-10.1) mg/dl Phosphorus (2.5-4.9) mg/dl Magnesium (1.7-2.4) mg/dl Resident Activity Tracking Resident Involvement: Resident Care Provided Care Provided: Adult Hospital Medicine
[2021-12-16 06:54] LABS: Stomatocytes 1+
[2021-12-16] MEDS: ICU ELECTROLYTE REPLACEMENT PROTOCOL SCH ×2 (07:00→12:25)
[2021-12-16 08:24] LABS: Prothrombin Time 9.9 Seconds (9.0-12.0)
[2021-12-16] MEDS ORDERED: WARFARIN SOD 5 MG TAB PO ONE (08:50)
--- NOTE | 2021-12-16 08:59 | Billing Data ---
Date of Service December 16, 2021 Coding Level of Care Code Critical Care 1st - mins
[2021-12-16] MEDS: POTASSIUM CHLORIDE 20 MEQ/15 ML UDC NG SCH ×2 (10:07→12:24)
[2021-12-16] MEDS: MAGNESIUM OXIDE 400 MG TAB NG SCH ×2 (10:07→12:24)
[2021-12-16] MEDS: ZINC SULFATE 220 MG CAPSULE PO SCH (10:08)
[2021-12-16] MEDS: PROPRANOLOL HCL 10 MG TAB PO SCH ×3 (10:08→20:42)
[2021-12-16] MEDS: LANSOPRAZOLE 30 MG SOLTAB NG SCH (10:08)
[2021-12-16] MEDS: ATORVASTATIN 20 MG TAB PO SCH (10:08)
[2021-12-16] MEDS: DOCUSATE SODIUM SYRUP 100 MG/10 ML UDC PO SCH ×2 (10:09→20:41)
[2021-12-16] MEDS: PRAZOSIN HCL 1 MG CAP PO SCH ×2 (12:24→20:42)
[2021-12-16] MEDS: DEXTROSE 50% 50 ML SYRINGE IV PRN (15:39)
[2021-12-16] MEDS: INSULIN HUMAN REGULAR SC SCH (15:42)
--- NOTE | 2021-12-16 15:44 | Hospitalist Progress Note ---
Date of Service December 16, 2021 Assessment & Plan (1) Acute respiratory failure: (2) ARDS (adult respiratory distress syndrome): (3) 2019 novel coronavirus-infected pneumonia (NCIP): Plan: Respiratory failure 2/2 ARDS with fibrotic changes. Pneumomediastinum has resolved. Intubated on 11/20/21 --> 11/26/2021 tracheostomy status, on mechanical ventilation being managed per critical care team. Remains on ventilator in ICU, wean as tolerated. Currently on hi flow hooked into trach via adapter, however, he is getting tired and being placed back to vent overnight. Completed dexamethasone. 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 Vanc stopped after 8 days. Remains afebrile and well appearing clinically. 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 Cont Lovenox. Plan: Plan for LTAC once off vent and more stable. DNR/DNI Mira James DO [facility] Hospitalist Admission and Anticipated Discharge Date Admission Date: November 03, 2021 Subjective 56 yo M admitted for acute respiratory failure 2/2 covid pneumonia. S/p trach and PEG appears clear and following commands. some leak around trach so patient is able to vocalize some sounds appears less anxious Denies pain or difficulty breathing Review of Systems Review of Systems: All systems were reviewed and negative except as indicated above. Physical Exam Physical Exam: CONSTITUTIONAL: WNWD, vitals as above, generally NAD EYES: normal conjunctivae, no scleral icterus ENT: external ear and nose normal NECK: trachea midline, trach in place. RESPIRATORY: clear to auscultation throughout, no rales or wheezes CARDIOVASCULAR: regular rate and rhythm, S1 and 2 heard without murmurs, gallops or rubs, no JVD, 3+ pitting edema bilaterally CHEST: inspection of chest was normal GASTROINTESTINAL: soft, nontender, ND, no guarding, PEG site clean and dry. MUSCULOSKELETAL: generalized weakness, no gross focal deficits but patient is still very weak SKIN: warm and dry NEUROLOGIC: CN 2-12 grossly intact, no gross focal deficits. Results & Data Results & Data ([facility]) Vital Signs (Past 12 Hours) Vital Signs Temp Pulse Pulse Resp BP Pulse Ox 12/16/21 14:00 101 H 33 H 96/60 L 91 01/18/22 13:00 101 H 34 H 90 12/16/21 12:45 98 H 36 H 121/66 86 L 12/16/21 12:00 100 H 29 H 102/62 95 12/16/21 11:00 97 H 26 H 99/65 L 94 12/16/21 10:25 113 H 22 97 12/16/21 10:00 112 H 22 114/56 L 99 12/16/21 09:00 118 H 22 91 12/16/21 08:25 112 H 22 98 12/16/21 08:00 37.1 C 109 H 28 H 102/59 L 97 12/16/21 07:00 108 H 30 H 105/67 93 12/16/21 06:00 105 H 33 H 120/58 L 90 12/16/21 05:17 94 12/16/21 05:00 106 H 27 H 92/46 L 95 12/16/21 04:37 99 H 21 96 12/16/21 04:00 36.5 C 108 H 22 85/50 L 95 Laboratory Results Short CBC 12/16/21 Range/Units 05:45 WBC 9.08 (4.8-10.8) K/uL Hgb 7.4 L (14.0-18.0) g/dL Hct 24.9 L (42-52) % Plt Count 233 (130-400) K/uL BMP 12/16/21 05:45 Sodium 144 Potassium 3.9 Chloride 100 Carbon Dioxide 43 H* BUN 22 Creatinine 0.78 Glucose 126 H Calcium 8.2 L Medications Administered Current Inpatient Medications Acetaminophen (Acetaminophen Susp 500 Mg/15.6 Ml Udp) 500 mg PO Q6H PRN PRN Reason: Pain or Fever Stop: 12/27/21 13:07 Last Admin: 11/27/21 18:16 Dose: 500 mg Documented by: Atorvastatin Calcium (Atorvastatin 20 Mg Tab) 20 mg PO DAILY YANDEL Stop: 01/15/22 08:59 Last Admin: 12/16/21 10:08 Dose: 20 mg Documented by: Dextrose (Dextrose 50% 50 Ml Syringe) 25 - 50 ml IV UD PRN; Protocol PRN Reason: Hypoglycemia Protocol Stop: 12/21/21 12:14 Last Admin: 12/16/21 15:39 Dose: 25 ml Documented by: Docusate Sodium (Docusate Sodium Syrup 100 Mg/10 Ml Udc) 100 mg PO BID [facility] Stop: 12/28/21 20:59 Last Admin: 12/16/21 10:09 Dose: Not Given Documented by: Enoxaparin Sodium (Enoxaparin 80 Mg/0.8 Ml Syr) 80 mg SQ Q12H [facility] Stop: 12/25/21 11:59 Last Admin: 12/16/21 12:24 Dose: 80 mg Documented by: Enteral Nutritional Formula (Peptamen 1.5 Sid 1,000 Ml Bag) 1,000 ml NG UD [facility]; Protocol Stop: 01/02/22 12:59 Last Admin: 12/12/21 14:43 Dose: 1,000 ml Documented by: Fluoxetine HCl (Fluoxetine Hcl 20 Mg/5 Ml Udp) 20 mg PO DAILY [facility] Stop: 01/14/22 10:14 Last Admin: 12/16/21 10:08 Dose: 20 mg Documented by: Glucagon (Glucagon For Inj 1 Mg Vial) 1 mg IM UD PRN; Protocol PRN Reason: Hypoglycemia Protocol Stop: 12/21/21 12:14 Glucose (Glucose 40% Gel 15 Gm Tube) 15 - 30 gm PO UD PRN; Protocol PRN Reason: Hypoglycemia Protocol Stop: 12/21/21 12:14 Glucose (Glucose 10 Tabs/Tube) 4 - 8 tabs PO UD PRN; Protocol PRN Reason: Hypoglycemia Protocol Stop: 12/21/21 12:14 Insulin Human Regular (Insulin Human Regular) 0 units SC Q6 [facility] Stop: 01/15/22 17:59 Last Admin: 12/16/21 15:42 Dose: Not Given Documented by: Lansoprazole (Lansoprazole 30 Mg Soltab) 30 mg NG QAM [facility] Stop: 01/12/22 08:59 Last Admin: 12/16/21 10:08 Dose: 30 mg Documented by: Miscellaneous (Carbohydrates For Hypoglycemia ) 15 - 30 gm PO PRN PRN PRN Reason: Hypoglycemia Treatment Stop: 12/21/21 12:14 Miscellaneous (Icu Electrolyte Replacement Protocol) 1 ea N/A BID@ [facility]; Protocol Stop: 12/18/21 17:59 Last Admin: 12/16/21 12:25 Dose: Not Given Documented by: Miscellaneous Information (Pharmacy Glycemic Mgmt Consult) 1 ea N/A UD PRN PRN Reason: Consult Stop: 12/21/21 12:09 Ondansetron HCl (Ondansetron Inj 2 Mg/Ml 2 Ml Vial) 4 mg IV Q6H PRN PRN Reason: Nausea And Vomiting Stop: 01/12/22 20:30 Last Admin: 12/15/21 09:25 Dose: 4 mg Documented by: Prazosin HCl (Prazosin Hcl 1 Mg Cap) 2 mg PO BID [facility] Stop: 12/18/21 09:01 Last Admin: 12/16/21 12:24 Dose: 2 mg Documented by: Propranolol HCl (Propranolol Hcl 10 Mg Tab) 10 mg PO TID [facility] Stop: 01/15/22 08:59 Last Admin: 12/16/21 12:25 Dose: Not Given Documented by: Sterile Water (Tube Feeding Water Flush) 200 ml PEG Q4H [facility] Stop: 01/12/22 08:13 Last Admin: 12/16/21 15:41 Dose: 200 ml Documented by: Warfarin Sodium (Warfarin Sod 5 Mg Tab) 5 mg PO DAILY@1600 [facility] Stop: 01/16/22 15:59 Zinc Sulfate (Zinc Sulfate 220 Mg Capsule) 220 mg PO QAM [facility] Stop: 01/15/22 08:59 Last Admin: 12/16/21 10:08 Dose: 220 mg Documented by:
[2021-12-16] MEDS ORDERED: WARFARIN SOD 5 MG TAB PO SCH (16:00)
[2021-12-16] MEDS ORDERED: LEVALBUTEROL HCL 1.25 MG/3 ML NEB NEB PRN (20:56)
[2021-12-17] MEDS: INSULIN HUMAN REGULAR SC SCH ×4 (00:03→18:12)
[2021-12-17] MEDS: ENOXAPARIN 80 MG/0.8 ML SYR SQ SCH ×2 (00:04→11:39)
[2021-12-17] MEDS: TUBE FEEDING WATER FLUSH PEG SCH ×6 (00:20→20:20)
[2021-12-17] MEDS: PEPTAMEN 1.5 CAL 1,000 ML BAG NG SCH ×2 (01:32→20:59)
[2021-12-17 05:07] LABS: Hematocrit (blood only) 25.1 % (42-52); Hemoglobin 7.4 g/dL (14.0-18.0); Mean Corpuscular Hgb Conc 29.5 g/dL (32-36); Mean Corpuscular Volume 98.4 fL (80-100); Platelet Count 222 K/uL (130-400); RDW Coefficient of Variation 16.1 % (11.5-14.5); RDW Standard Deviation 57.3 fL (36.4-46.3); Red Blood Count 2.55 M/uL (4.7-6.1); White Blood Count 8.97 K/uL (4.8-10.8)
[2021-12-17 05:15] LABS: Prothrombin Time 10.3 Seconds (9.0-12.0)
[2021-12-17 05:32] LABS: Basophils # (auto) 0.01 K/uL (0-0.2); Basophils % (auto) 0.1 %; Eosinophils # (auto) 0.23 K/uL (0-0.5); Eosinophils % (auto) 2.6 %; Immature Granulocytes # (auto) 0.01 K/uL (0.00-0.02); Immature Granulocytes % (auto) 0.1 %; Monocytes # (auto) 0.56 K/uL (0.11-0.59); Monocytes % (auto) 6.2 %; Neutrophils # (auto) 7.26 K/uL (1.4-6.5); Stomatocytes 1+
[2021-12-17 05:52] LABS: BUN Creatinine Ratio 35.7 (10-20); Calcium 8.6 mg/dl (8.5-10.1); Creatinine Clr Calc Pharmacy 111.3 ml/min; Est GFR (African American) 120.6 ml/min; Phosphorus 2.1 mg/dl (2.5-4.9); Potassium 4.2 mmol/L (3.5-5.1)
[2021-12-17] MEDS ORDERED: SODIUM PHOSPHATE 3 MMOL/1 ML INFUSION IV STA (06:09)
[2021-12-17] MEDS: ICU ELECTROLYTE REPLACEMENT PROTOCOL SCH ×2 (06:20→17:43)
[2021-12-17] MEDS ORDERED: SODIUM PHOSPHATE 15 MMOL in DEXTROSE 5% 250 ML IV ONE (06:30)
[2021-12-17] MEDS: MAGNESIUM SULFATE / D5W 1 GM/100 ML BAG IV SCH ×2 (07:16→09:13)
--- NOTE | 2021-12-17 08:07 | Critical Care Progress Note ---
Date of Service December 17, 2021 Assessment & Plan (1) Acute hypoxemic respiratory failure due to COVID-19: (2) COVID-19: (3) Lung fibrosis: (4) ARDS (adult respiratory distress syndrome): (5) Factor V Leiden carrier: (6) Bacteremia: Plan: Neuro: Continue to try and mobilize as tolerated. PT and OT in progress.Continue Prozac 20 mg. Cardiovascular: Hypotension resolved. Off pressors now. oral midodrine discontinued. Remains tachycardic. Continue propranolol, 10 mg three times daily, for anticatabolic effects and persistent tachycardia. Add iron and vitamin C for anemia. Respiratory: Respiratory failure secondary to ARDS with significant fibrotic changes. Pneumomediastinum has resolved.Trach upsized to 8 cuffed Shiley, still some leak. Required pressure support ventilation overnight but continues to tolerate high flow via tracheostomy this AM -- continue as able. Remains hypercarbic with very stiff lungs and poor compliance. May need evaluation for lung transplant at some point. Renal/lytes Kidney function back to normal. Electrolyte replacement as needed. Try and keep on slight negative balance. He does have evidence of peripheral edema. Echo showed collapsibility of IVC suggestive of intravascular volume depletion. Acid-base status does demonstrate significant respiratory acidosis. Continue free water via PEG tube: 200 mL every 4. Replace calcium- continue with electrolyte replacement protocol : Prazosin twice daily for urinary retention, will consider discontinuing in the next 48 to 72 hours or once spontaneously voiding. Discontinuing straight catheter as patient is now being started on warfarin ID: Coag negative staph in blood 3 out of 4 bottles. Stopped after 8 days vancomycin white count and fever curve are better. Surveillance cultures negative. Heme:-History of factor V Leiden with acute DVT. On therapeutic Lovenox. Mild anemia. No signs of bleeding.warfarin 5 mg today GI:Continue tube feeding. Check prealbumin. On Protonix, adding minerals and zinc. Lactulos prn added due to starting iron as above. Endo: Glycemic control per protocol. Continue 48-hour labs and continue to normalize patient with aggressive physical therapy, will discuss with pharmacy possibility of adding oxandrolone consideration given to factor V Leiden and DVT risk. Admission and Anticipated Discharge Date Admission Date: November 03, 2021 Supervising Physician Co-Signing Physician Notes Dr. Alaniz was resident physician during care of patient. I separately evaluated patient for orourke portions of the history and the exam. I was present during the critical portion of medical decision making, and I discussed the case with the resident. I generally agree with the findings and plan. Patient requiring pressure support ventilation overnight still requiring high flow oxygen via trach collar during the day significant oxygen requirements during any sort of physical activity very small respiratory reserve. Will require placement in a long-term acute care for pulmonary rehab. Still has cuff leak when on pressure support ventilation. Adding iron and vitamin C for anemia. Continue with current bowel regimen adding lactulose as needed for iron supplementation and prevention of constipation last bowel movement was this morning. Subjective No acute events overnight. Continues to tolerate high flow via trach this AM but required pressure support overnight. This AM did not try to talk as he had on previous days. Shook head when asked if he had any pain or discomfort. Review of Systems Review of Systems: unable to fully review secondary to mechanical ventilation Physical Exam Physical Exam: General: Alert following commands HEENT: Atraumatic, PERRL, tracheostomy tube in place Cardiovascular: Tachycardic, regular rhythm. -mgr Respiratory: CTAB, -wrr Gastrointestinal: NTND, BS+x4 Musculoskeletal: No clubbing, no cyanosis. 1+ pitting edema BLE Skin: Warm and dry, no rashes or lesions Results & Data Results & Data ([facility]) Vital Signs (Past 12 Hours) Vital Signs Temp Pulse Resp BP Pulse Ox 12/17/21 06:30 108 H 116/73 91 12/17/21 06:00 101 H 22 112/67 91 12/17/21 05:30 97 H 20 116/67 93 12/17/21 05:00 125 H 28 H 116/73 99 12/17/21 04:30 101 H 24 106/67 92 12/17/21 04:00 100 H 13 121/66 91 12/17/21 03:48 110 H 21 94 12/17/21 03:30 102 H 106/65 96 12/17/21 03:00 99 H 15 103/62 98 12/17/21 02:30 98 H 12 108/65 96 12/17/21 02:00 101 H 96 12/17/21 01:30 105 H 105/60 96 12/17/21 01:00 101 H 23 119/53 L 95 01/19/22 00:30 75 101/66 80 L 12/17/21 00:17 36.5 C 12/17/21 00:00 103 H 105/52 L 96 12/16/21 23:30 101 H 19 92/51 L 96 12/16/21 23:00 97 H 18 84/51 L 98 12/16/21 22:57 96 H 30 H 98 12/16/21 22:52 108 H 36 H 98 12/16/21 22:30 92 H 79/41 L 98 12/16/21 22:10 101 H 78/44 L 97 12/16/21 22:09 96 H 0 L 78/43 L 96 12/16/21 22:00 104 H 87/60 L 90 12/16/21 21:30 107 H 90/59 L 95 12/16/21 21:16 36.7 C 12/16/21 21:00 116 H 113/57 L 89 L 12/16/21 20:37 112 H 111/53 L 96 12/16/21 20:30 117 H 32 H 95 Critical Care Results & Data Vital Signs (Past 12 Hours) Vital Signs Temp Pulse Resp BP Pulse Ox 12/17/21 08:20 101 H 12/17/21 06:30 108 H 116/73 91 12/17/21 06:00 101 H 22 112/67 91 12/17/21 05:30 97 H 20 116/67 93 12/17/21 05:00 125 H 28 H 116/73 99 12/17/21 04:30 101 H 24 106/67 92 12/17/21 04:00 100 H 13 121/66 91 12/17/21 03:48 110 H 21 94 12/17/21 03:30 102 H 106/65 96 12/17/21 03:00 99 H 15 103/62 98 12/17/21 02:30 98 H 12 108/65 96 12/17/21 02:00 101 H 96 12/17/21 01:30 105 H 105/60 96 12/17/21 01:00 101 H 23 119/53 L 95 12/17/21 00:30 75 101/66 80 L 12/17/21 00:17 36.5 C 12/17/21 00:00 103 H 105/52 L 96 12/16/21 23:30 101 H 19 92/51 L 96 12/16/21 23:00 97 H 18 84/51 L 98 12/16/21 22:57 96 H 30 H 98 12/16/21 22:52 108 H 36 H 98 12/16/21 22:30 92 H 79/41 L 98 12/16/21 22:10 101 H 78/44 L 97 12/16/21 22:09 96 H 0 L 78/43 L 96 Lab & Micro Results (Past 24 Hours) RBC 2.55 M/uL (4.7-6.1) L 12/17/21 WBC 8.97 K/uL (4.8-10.8) 12/17/21 Hgb 7.4 g/dL (14.0-18.0) L 12/17/21 Hct 25.1 % (42-52) L 12/17/21 MCV 98.4 fL (80-100) 12/17/21 MCH 29.0 pg (25-34) 12/17/21 MCHC 29.5 g/dL (32-36) L 12/17/21 RDW Standard Deviation 57.3 fL (36.4-46.3) H 12/17/21 RDW Coefficient of Variation 16.1 % (11.5-14.5) H 12/17/21 Plt Count 222 K/uL (130-400) 12/17/21 MPV 10.0 fL (7.4-10.4) 12/17/21 Neutrophils (%) (Auto) 81.0 % 12/17/21 Lymphocytes (%) (Auto) 10.0 % 12/17/21 Monocytes # (Auto) 0.56 K/uL (0.11-0.59) 12/17/21 Eosinophils # (Auto) 0.23 K/uL (0-0.5) 12/17/21 Immature Granulocyte % (Auto) 0.1 % 12/17/21 Neutrophils # (Auto) 7.26 K/uL (1.4-6.5) H 12/17/21 Lymphocytes # (Auto) 0.90 K/uL (1.2-3.4) L 12/17/21 Monocytes # (Auto) 0.56 K/uL (0.11-0.59) 12/17/21 Eosinophils # (Auto) 0.23 K/uL (0-0.5) 12/17/21 Basophils # (Auto) 0.01 K/uL (0-0.2) 12/17/21 Immature Granulocyte # (Auto) 0.01 K/uL (0.00-0.02) 12/17/21 Stomatocytes 1+ 12/17/21 Na 146 mmol/L (136-145) H 12/17/21 K 4.2 mmol/L (3.5-5.1) 12/17/21 Cl 102 mmol/L (98-107) 12/17/21 CO2 44 mmol/L (21-32) H* 12/17/21 Anion Gap 0 (3-11) L 12/17/21 BUN 25 mg/dl (6-23) H 12/17/21 Creatinine 0.70 mg/dl (0.6-1.4) 12/17/21 Estimated GFR ( Amer) 120.6 ml/min 12/17/21 Estimated GFR (Non-Af Amer) 104.0 ml/min 12/17/21 BUN/Creatinine Ratio 35.7 (10-20) H 12/17/21 Glu 138 mg/dl (70-99(Fasting)) H 12/17/21 Ca 8.6 mg/dl (8.5-10.1) 12/17/21 Phosphorus Level 2.1 mg/dl (2.5-4.9) L 12/17/21 Mg 2.0 mg/dl (1.7-2.4) 12/17/21 04:41 12/17/21 Calcium Level 8.6 mg/dl (8.5-10.1) 12/17/21 04:41 12/17/21 Prothromb Time International Ratio 1.0 (0.9-1.1) 12/17/21 04:41 12/17/21 Microbiology 12/10/21 16:58 Aerobic Blood Culture - Final Blood No growth in Aerobic bottle after 5 days. Anaerobic Blood Culture - Final No growth in Anaerobic bottle after 5 days. 12/10/21 16:45 Aerobic Blood Culture - Final Blood No growth in Aerobic bottle after 5 days. Anaerobic Blood Culture - Final No growth in Anaerobic bottle after 5 days. I & O Totals 24 Hours 12/16/21 12/17/21 12/18/21 06:59 06:59 06:59 Intake Total 2715 / 2715 1455 / 1455 97.5 / 97.5 Output Total 1426 / 1426 701 / 701 Balance 1289 / 1289 754 / 754 96.5 / 96.5 Cumulative 11/03/21 14:22 thru 12/17/21 09:13 Intake Total 48349.764 Output Total 84469 Balance -3272.236 RT Ventilator Mngmt (Last Documented) Ventilator Ordered Settings Ventilator Support Mode CPAP 12/17/21 08:00 Respiratory Rate 22 12/17/21 06:00 Ventilator Tidal Volume 600 12/14/21 08:00 Setting Minute Ventilation 8.3 12/17/21 03:48 Ventilator Positive Pressure 14 12/17/21 08:00 Support Setting Positive End Expiratory 5 12/17/21 08:00 Pressure Fraction of Inspired Oxygen 100 12/17/21 08:20 Peak Inspiratory Flow 60 12/15/21 16:15 Inspiratory Pressure 35 12/14/21 08:54 Machine Comment p complaining of feeling SOB PS 12/16/21 22:52 increased from 10 to 14, pt more comfortabl Ventilator - PT Measurements Respiratory Rate 22 Exhaled Tidal Volume 509 Minute Ventilation 8.3 Peak Inspiratory Airway 22 Pressure Plateau Pressure 17 Respiratory Cycle Inspiratory: 1:2.1 Expiratory Ratio Inspiratory Phase Time 0.68 End-Tidal CO2 29 Static Lung Compliance 49.00 Dynamic Lung Compliance 29.94 Normal Static Lung Compliance 47.00 Patient Measurements Comment Plaed back on CPAP 10/ 80% for HS Resident Activity Tracking Resident Involvement: Resident Care Provided Care Provided: Adult Hospital Medicine
[2021-12-17] MEDS: PRAZOSIN HCL 1 MG CAP PO SCH ×2 (08:32→21:29)
[2021-12-17] MEDS: DOCUSATE SODIUM SYRUP 100 MG/10 ML UDC PO SCH ×2 (08:32→21:00)
[2021-12-17] MEDS: ZINC SULFATE 220 MG CAPSULE PO SCH (08:33)
[2021-12-17] MEDS: LANSOPRAZOLE 30 MG SOLTAB NG SCH (08:33)
[2021-12-17] MEDS: PROPRANOLOL HCL 10 MG TAB PO SCH ×3 (08:33→21:29)
[2021-12-17] MEDS: ATORVASTATIN 20 MG TAB PO SCH (08:34)
--- NOTE | 2021-12-17 09:25 | Billing Data ---
Date of Service December 17, 2021 Coding Level of Care Code 67980 Subseq Hosp Care Lvl 3
--- NOTE | 2021-12-17 10:13 | Hospitalist Progress Note ---
Date of Service December 17, 2021 Assessment & Plan (1) Acute respiratory failure: (2) ARDS (adult respiratory distress syndrome): (3) 2019 novel coronavirus-infected pneumonia (NCIP): Plan: Respiratory failure 2/2 ARDS with fibrotic changes. Pneumomediastinum has resolved. Intubated on 11/20/21 --> 11/26/2021 tracheostomy status, on mechanical ventilation being managed per critical care team. Remains on ventilator in ICU, wean as tolerated. Currently on hi flow hooked into trach via adapter, was getting tired last night and placed back to vent overnight. Completed dexamethasone. 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 Remains afebrile and well appearing clinically. 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 Cont Lovenox. Plan: Plan for LTAC once off vent and more stable. DNR/DNI Admission and Anticipated Discharge Date Admission Date: November 03, 2021 Subjective Patient seen in the ICU today, says he cannot breathe very well. Appetite not great Results & Data Results & Data ([facility]) Vital Signs (Past 12 Hours) Vital Signs Temp Pulse Resp BP Pulse Ox 12/17/21 08:20 101 H 12/17/21 06:30 108 H 116/73 91 12/17/21 06:00 101 H 22 112/67 91 12/17/21 05:30 97 H 20 116/67 93 12/17/21 05:00 125 H 28 H 116/73 99 12/17/21 04:30 101 H 24 106/67 92 12/17/21 04:00 100 H 13 121/66 91 12/17/21 03:48 110 H 21 94 12/17/21 03:30 102 H 106/65 96 12/17/21 03:00 99 H 15 103/62 98 12/17/21 02:30 98 H 12 108/65 96 12/17/21 02:00 101 H 96 12/17/21 01:30 105 H 105/60 96 12/17/21 01:00 101 H 23 119/53 L 95 12/17/21 00:30 75 101/66 80 L 12/17/21 00:17 36.5 C 12/17/21 00:00 103 H 105/52 L 96 12/16/21 23:30 101 H 19 92/51 L 96 12/16/21 23:00 97 H 18 84/51 L 98 12/16/21 22:57 96 H 30 H 98 12/16/21 22:52 108 H 36 H 98 12/16/21 22:30 92 H 79/41 L 98 12/16/21 22:10 101 H 78/44 L 97 Laboratory Results Reviewed
[2021-12-17] MEDS ORDERED: LACTULOSE SYRUP 20 GM/30 ML UDC PO PRN (10:39)
[2021-12-17] MEDS ORDERED: MIDODRINE HCL 2.5 MG TAB PO STA (12:25)
[2021-12-17] MEDS ORDERED: WARFARIN SOD 5 MG TAB PO SCH (16:00)
[2021-12-17] MEDS: MIDODRINE HCL 2.5 MG TAB PO SCH (16:29)
[2021-12-17] MEDS ORDERED: ALBUMIN 5% 250 ML IV ONE (22:30)
[2021-12-18] MEDS: INSULIN HUMAN REGULAR SC SCH ×4 (00:11→18:15)
[2021-12-18] MEDS: ENOXAPARIN 80 MG/0.8 ML SYR SQ SCH ×2 (00:11→12:08)
[2021-12-18] MEDS: TUBE FEEDING WATER FLUSH PEG SCH ×6 (00:20→20:35)
[2021-12-18 06:32] LABS: Prothrombin Time 9.9 Seconds (9.0-12.0)
--- NOTE | 2021-12-18 07:16 | Critical Care Progress Note ---
Date of Service December 18, 2021 Assessment & Plan (1) Acute hypoxemic respiratory failure due to COVID-19: (2) COVID-19: (3) Lung fibrosis: (4) ARDS (adult respiratory distress syndrome): (5) Factor V Leiden carrier: (6) Bacteremia: Plan: Neuro: Continue to try and mobilize as tolerated. PT and OT in progress.Continue Prozac 20 mg. Cardiovascular: Hypotension resolved. Off pressors now. oral midodrine discontinued. Remains tachycardic. Continue propranolol, 10 mg three times daily, for anticatabolic effects and persistent tachycardia. Add iron and vitamin C for anemia. Respiratory: Respiratory failure secondary to ARDS with significant fibrotic changes. Pneumomediastinum has resolved.Trach upsized to 8 cuffed Shiley, still some leak. Intermittently requiring vent support and generally tolerates high-flow throughout the day. Has not required more than 50L in the last 24h. Remains hypercarbic with very stiff lungs and poor compliance. May need evaluation for lung transplant at some point.Discuss possible bronchoscopy today. Renal/lytes: Kidney function back to normal. Electrolyte replacement as needed. Try and keep on slight negative balance. He does have evidence of peripheral edema. Echo showed collapsibility of IVC suggestive of intravascular volume depletion. Acid-base status does demonstrate significant respiratory acidosis. Continue free water via PEG tube: 200 mL every 4. Discontinue e-lyte replacement protocol. : Prazosin DC'd. Discontinuing straight catheter as patient is on warfarin. Voiding spontaneously. ID: Coag negative staph in blood 3 out of 4 bottles. Stopped after 8 days vancomycin white count and fever curve are better. Surveillance cultures negative. Heme:History of factor V Leiden with acute DVT. On therapeutic Lovenox. Mild anemia. No signs of bleeding.Warfarin 12mg today. Monitor INR. GI:Continue tube feeding. Check prealbumin. On Protonix, adding minerals and zinc. Lactulose prn added due to starting iron as above. Endo: Glycemic control per protocol.Discuss possibility of oxandrolone for cachexia -- patient does have Factor V Leiden and oxandrolone could increase risk of VTE. Continue 48-hour labs and continue to normalize patient with aggressive physical therapy Admission and Anticipated Discharge Date Admission Date: November 03, 2021 Supervising Physician Co-Signing Physician Notes Dr. Alaniz was resident physician during care of patient. I separately evaluated patient for orourke portions of the history and the exam. I was present during the critical portion of medical decision making, and I discussed the case with the resident. I generally agree with the findings and plan. Patient subjectively tired today did not want to do trach collar trials. We are attempting to get a [place] foam cuffed trach that will hopefully facilitate his comfort with mechanical ventilation and he still occasionally is able to vocalize around the current tracheostomy. Other considerations will be to replace it with a distal XLT however we are attempting to locate these tracheostomies as there is limited supply given the COVID-19 pandemic. Proceed with 12 mg warfarin today, labs every other day. Discontinue electrolyte replacement protocol. Patient has acute hypercapnic hypoxic respiratory failu re. He has had multiple mucous plugs will proceed with bronchoscopy should the patient be willing to undergo that today. Will discuss with patient and risks and benefits of oxandrolone for ICU cachexia. I understand there may be an increased risk of venous thromboembolism however I believe the patient is looking at quality of life and benefits of oxandrolone may outweigh the risks of venous thromboembolism. Subjective No acute events overnight. Shakes head when asked if he is feeling well today. Shakes his head when asked specifically whether he has CP, palp, SOB, abd pain, n/v, f/c. Reports he feels tired. Review of Systems Review of Systems: unable to fully review secondary to tracheostomy Physical Exam Physical Exam: General: Alert following commands HEENT: Atraumatic, PERRL, tracheostomy tube in place Cardiovascular: Tachycardic, regular rhythm. -mgr Respiratory: CTAB, -wrr Gastrointestinal: NTND, BS+x4 Musculoskeletal: No clubbing, no cyanosis. 1+ pitting edema BLE Skin: Warm and dry, no rashes or lesions Results & Data Results & Data ([facility]) Vital Signs (Past 12 Hours) Vital Signs Temp Pulse Resp BP Pulse Ox 12/18/21 06:00 110 H 29 H 118/68 97 12/18/21 05:30 106 H 28 H 130/73 98 12/18/21 05:00 110 H 32 H 98 12/18/21 04:30 110 H 116/68 92 12/18/21 04:00 105 H 32 H 103/58 L 94 12/18/21 03:52 36.5 C 12/18/21 03:36 103 H 23 98 12/18/21 03:30 111 H 38 H 99/55 L 93 12/18/21 03:00 108 H 25 H 104/56 L 94 12/18/21 02:30 107 H 18 107/58 L 98 12/18/21 02:00 102 H 17 99/55 L 98 12/18/21 01:30 101 H 18 106/63 98 12/18/21 01:00 103 H 25 H 93/47 L 96 12/18/21 00:53 22 12/18/21 00:30 101 H 29 H 99/55 L 95 12/18/21 00:00 103 H 26 H 101/49 L 91 12/17/21 23:52 104 H 20 97 12/17/21 23:30 96 H 13 84/43 L 98 12/17/21 23:17 36.5 C 12/17/21 23:00 102 H 15 85/47 L 97 12/17/21 22:30 97 H 21 84/42 L 95 12/17/21 22:03 103 H 28 H 84/45 L 95 12/17/21 22:00 102 H 23 91/45 L 96 12/17/21 21:30 113 H 13 119/55 L 94 12/17/21 21:00 110 H 16 112/52 L 94 12/17/21 20:30 113 H 33 H 104/46 L 91 12/17/21 20:00 116 H 31 H 109/51 L 92 12/17/21 19:30 119 H 29 H 112/56 L 93 Critical Care Results & Data Vital Signs (Past 12 Hours) Vital Signs Temp Pulse Resp BP Pulse Ox 12/18/21 06:00 110 H 29 H 118/68 97 12/18/21 05:30 106 H 28 H 130/73 98 12/18/21 05:00 110 H 32 H 98 12/18/21 04:30 110 H 116/68 92 12/18/21 04:00 105 H 32 H 103/58 L 94 12/18/21 03:52 36.5 C 12/18/21 03:36 103 H 23 98 12/18/21 03:30 111 H 38 H 99/55 L 93 12/18/21 03:00 108 H 25 H 104/56 L 94 12/18/21 02:30 107 H 18 107/58 L 98 12/18/21 02:00 102 H 17 99/55 L 98 12/18/21 01:30 101 H 18 106/63 98 12/18/21 01:00 103 H 25 H 93/47 L 96 12/18/21 00:53 22 12/18/21 00:30 101 H 29 H 99/55 L 95 12/18/21 00:00 103 H 26 H 101/49 L 91 12/17/21 23:52 104 H 20 97 12/17/21 23:30 96 H 13 84/43 L 98 12/17/21 23:17 36.5 C 12/17/21 23:00 102 H 15 85/47 L 97 12/17/21 22:30 97 H 21 84/42 L 95 12/17/21 22:03 103 H 28 H 84/45 L 95 12/17/21 22:00 102 H 23 91/45 L 96 12/17/21 21:30 113 H 13 119/55 L 94 12/17/21 21:00 110 H 16 112/52 L 94 12/17/21 20:30 113 H 33 H 104/46 L 91 12/17/21 20:00 116 H 31 H 109/51 L 92 12/17/21 19:30 119 H 29 H 112/56 L 93 Lab & Micro Results (Past 24 Hours) No Data to Display No Data to Display Prothromb Time International Ratio 1.0 (0.9-1.1) 12/18/21 05:38 12/18/21 I & O Totals 24 Hours 12/17/21 12/18/21 12/19/21 06:59 06:59 06:59 Intake Total 1455 / 1455 2745.5 / 2745.5 Output Total 701 / 701 833 / 833 Balance 754 / 754 1912.5 / 1912.5 Cumulative 11/03/21 14:22 thru 12/18/21 06:00 Intake Total 82448.764 Output Total 94338 Balance -1456.236 RT Ventilator Mngmt (Last Documented) Ventilator Ordered Settings Ventilator Support Mode Assist Control 12/18/21 04:00 Respiratory Rate 29 12/18/21 06:00 Ventilator Tidal Volume 480 12/18/21 04:00 Setting Minute Ventilation 16.3 12/18/21 03:36 Ventilator Positive Pressure 14 12/18/21 00:00 Support Setting Positive End Expiratory 5 12/18/21 04:00 Pressure Fraction of Inspired Oxygen 60 12/18/21 04:00 Peak Inspiratory Flow 60 12/15/21 16:15 Inspiratory Pressure 35 12/14/21 08:54 Machine Comment Placed on CPAP per nursing 12/17/21 14:35 request Ventilator - PT Measurements Respiratory Rate 29 Exhaled Tidal Volume 471 Minute Ventilation 16.3 Peak Inspiratory Airway 35 Pressure Plateau Pressure 19.2 Respiratory Cycle Inspiratory: 1:4 Expiratory Ratio Inspiratory Phase Time 0.30 End-Tidal CO2 55 Static Lung Compliance 33.17 Dynamic Lung Compliance 15.70 Normal Static Lung Compliance 44.00 Patient Measurements Comment Patient removed from CPAP and placed on HFNC Critical Care Time I have personally spent 45 minutes of critical care time in the direct management of this patient. This is a life/limb threatening event. This includes time spent evaluating patient, direct bedside care, chart review, placing orders, interpretation of diagnostic studies, discussion with consultants, patient, and/or family members regarding treatment decisions, as well as other required patient management activities. This time is exclusive of all separately billable procedures, and teaching time and separate from and in addition to any other critical care service time. Resident Activity Tracking Resident Involvement: Resident Care Provided Care Provided: Adult [facility] Medicine
[2021-12-18] MEDS: ICU ELECTROLYTE REPLACEMENT PROTOCOL SCH (07:45)
[2021-12-18] MEDS: MULTI VIT W/MINERALS LIQUID 15 ML UDP PO SCH (08:45)
[2021-12-18] MEDS: LANSOPRAZOLE 30 MG SOLTAB NG SCH (08:46)
[2021-12-18] MEDS: ATORVASTATIN 20 MG TAB PO SCH (08:46)
[2021-12-18] MEDS: FERROUS SULFATE 325 MG/7.4 ML UDP PO SCH (08:46)
[2021-12-18] MEDS: DOCUSATE SODIUM SYRUP 100 MG/10 ML UDC PO SCH ×2 (08:46→20:38)
[2021-12-18] MEDS: MIDODRINE HCL 2.5 MG TAB PO SCH ×3 (08:47→17:13)
[2021-12-18] MEDS: ASCORBIC ACID 500 MG TAB PO SCH (08:47)
[2021-12-18] MEDS: PROPRANOLOL HCL 10 MG TAB PO SCH ×3 (08:48→20:36)
[2021-12-18] MEDS: ZINC SULFATE 220 MG CAPSULE PO SCH (08:49)
[2021-12-18] MEDS ORDERED: FERROUS SULFATE 325 MG TAB PO SCH (09:00)
--- NOTE | 2021-12-18 09:43 | Hospitalist Progress Note ---
Date of Service December 18, 2021 Assessment & Plan (1) Acute respiratory failure: (2) ARDS (adult respiratory distress syndrome): (3) 2019 novel coronavirus-infected pneumonia (NCIP): Plan: Respiratory failure 2/2 ARDS with fibrotic changes. Pneumomediastinum has resolved. Intubated on 11/20/21 --> 11/26/2021 tracheostomy status, on mechanical ventilation being managed per critical care team. Remains on ventilator in ICU, wean as tolerated. Currently on hi flow hooked into trach via adapter, was getting tired last night and placed back to vent overnight. Completed dexamethasone. 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 Remains afebrile and well appearing clinically. 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 Cont Lovenox. Plan: Plan for LTAC once off vent and more stable. DNR/DNI ROS-No Headache, No Visual Changes, No Nausea, No Vomiting, No Fever, No Chills, No Neck Pain or Stiffness, No Chest Pain, No Palpitations, + SOB, + RAZA, + Cough, + Sputum, No Wheezing, No Abdominal Pain, No Diarrhea, No Hematemesis, No Hemoptysis, No Unexpected Weight Loss, No Flank pain, No Melena, No Hematochezia, No Frequency, No Urgency, No Burning, No Hematuria, No Rashes, No Diaphoresis. Appetite is poor, +Weakness Physical Exam Gen-AAO x 3, NAD, Afebrile, +Trach, Tachypneic Head-NCAT, EOMI, PERRLA, Anicteric Sclera, No Posterior Pharyngeal Erythema Neck-Supple, No JVD, No Thyromegaly, No Masses, No LAD, No Bruits Lungs-Clear to Auscultation Bilaterally, No Rales, No Rhonchi, No Wheezing, No Crepitus Chest-Tachy No S4, +S1, +S2, No S3, No Murmurs, No Rubs, No Gallops, No Ectopy Abdomen-Soft, Bowel Sounds Present, Non Tender, Non Distended, No Hepatomegaly, No Splenomegaly, No Palpable Masses, No Rebound, No Rigidity, No Guarding Musculoskeletal-Full Range of Motion Bilaterally, No CVAT Extremities-No Cyanosis, No Clubbing, No Edema Nuero-Cranial Nerves II-XII grossly intact, Motor WNL, DTRs WNL, Strength WNL, Non Focal Psych-Normal Mood Admission and Anticipated Discharge Date Admission Date: November 03, 2021 Subjective No acute events overnight. Looks better, Cooperative, appropriate Results & Data Results & Data ([facility]) Vital Signs (Past 12 Hours) Vital Signs Temp Pulse Resp BP Pulse Ox 12/18/21 08:20 118 H 41 H 94 12/18/21 08:19 37.0 C 12/18/21 06:00 110 H 29 H 118/68 97 12/18/21 05:30 106 H 28 H 130/73 98 12/18/21 05:00 110 H 32 H 98 12/18/21 04:30 110 H 116/68 92 12/18/21 04:00 105 H 32 H 103/58 L 94 12/18/21 03:52 36.5 C 12/18/21 03:36 103 H 23 98 12/18/21 03:30 111 H 38 H 99/55 L 93 12/18/21 03:00 108 H 25 H 104/56 L 94 12/18/21 02:30 107 H 18 107/58 L 98 12/18/21 02:00 102 H 17 99/55 L 98 12/18/21 01:30 101 H 18 106/63 98 12/18/21 01:00 103 H 25 H 93/47 L 96 12/18/21 00:53 22 12/18/21 00:30 101 H 29 H 99/55 L 95 12/18/21 00:00 103 H 26 H 101/49 L 91 12/17/21 23:52 104 H 20 97 12/17/21 23:30 96 H 13 84/43 L 98 12/17/21 23:17 36.5 C 12/17/21 23:00 102 H 15 85/47 L 97 12/17/21 22:30 97 H 21 84/42 L 95 12/17/21 22:03 103 H 28 H 84/45 L 95 12/17/21 22:00 102 H 23 91/45 L 96
--- NOTE | 2021-12-18 10:22 | Billing Data ---
Date of Service December 18, 2021 Coding Level of Care Code Critical Care 1st - mins
--- NOTE | 2021-12-18 10:36 | XRay Report ---
XR chest 1V portable CLINICAL HISTORY: Intubated. Follow-up bilateral airspace opacities COMPARISON STUDY: 12/14/2021 TECHNIQUE: 1 view of the chest FINDINGS: Single frontal view of the chest demonstrates the heart to again be enlarged. Tracheostomy tube is ag ain seen and unchanged. Compared to the previous examination, there has been continued worsening of b ilateral interstitial and alveolar opacities. There is no evidence for pleural effusion. There is no evidence for vascular congestion. There is no acute osseous pathology. IMPRESSION: Interval worsening of bilateral interstitial and alveolar opacities. ACT 112: Negative or not required by law. Electronically signed by: El Rebolledo M.D. 12/18/2021 10:35 AM
[2021-12-18] MEDS: PRAZOSIN HCL 1 MG CAP PO SCH (12:07)
[2021-12-18] MEDS ORDERED: CONSULT PHARMACY STA ×2 (15:07→15:09)
[2021-12-18] MEDS ORDERED: WARFARIN SOD 6 MG TAB PO ONE (16:00)
[2021-12-18] MEDS: PEPTAMEN 1.5 CAL 1,000 ML BAG NG SCH (17:06)
[2021-12-19] MEDS: ENOXAPARIN 80 MG/0.8 ML SYR SQ SCH ×2 (00:02→12:47)
[2021-12-19] MEDS: INSULIN HUMAN REGULAR SC SCH ×4 (00:03→17:41)
[2021-12-19] MEDS: TUBE FEEDING WATER FLUSH PEG SCH ×6 (00:05→20:26)
[2021-12-19] MEDS: ONDANSETRON INJ 2 MG/ML 2 ML VIAL IV PRN ×3 (01:59→19:55)
[2021-12-19 05:31] LABS: INR 1.1 (0.9-1.1); Prothrombin Time 10.8 Seconds (9.0-12.0)
[2021-12-19 05:33] LABS: Hematocrit (blood only) 24.4 % (42-52); Mean Corpuscular Hemoglobin 28.9 pg (25-34); Mean Corpuscular Hgb Conc 28.7 g/dL (32-36); Mean Corpuscular Volume 100.8 fL (80-100); Mean Platelet Volume 10.3 fL (7.4-10.4); Platelet Count 247 K/uL (130-400); RDW Coefficient of Variation 16.4 % (11.5-14.5); RDW Standard Deviation 60.4 fL (36.4-46.3); Red Blood Count 2.42 M/uL (4.7-6.1); White Blood Count 10.75 K/uL (4.8-10.8)
[2021-12-19 05:59] LABS: BUN Creatinine Ratio 43.6 (10-20); Calcium 8.5 mg/dl (8.5-10.1); Creatinine Clr Calc Pharmacy 99.9 ml/min; Est GFR (African American) 115.3 ml/min; Est GFR (Non-African American) 99.5 ml/min; Magnesium 2.2 mg/dl (1.7-2.4); Phosphorus 1.9 mg/dl (2.5-4.9)
[2021-12-19 06:10] LABS: Basophils # (auto) 0.01 K/uL (0-0.2); Basophils % (auto) 0.1 %; Eosinophils # (auto) 0.35 K/uL (0-0.5); Eosinophils % (auto) 3.3 %; Immature Granulocytes # (auto) 0.02 K/uL (0.00-0.02); Immature Granulocytes % (auto) 0.2 %; Lymphocytes # (auto) 1.08 K/uL (1.2-3.4); Monocytes % (auto) 7.4 %; Neutrophils # (auto) 8.49 K/uL (1.4-6.5); Stomatocytes 1+
--- NOTE | 2021-12-19 07:24 | Critical Care Progress Note ---
Date of Service December 19, 2021 Assessment & Plan (1) Acute hypoxemic respiratory failure due to COVID-19: (2) COVID-19: (3) Lung fibrosis: (4) ARDS (adult respiratory distress syndrome): (5) Factor V Leiden carrier: (6) Bacteremia: Plan: Neuro: Continue to try and mobilize as tolerated. PT and OT in progress.Increase Prozac to 40 mg. Cardiovascular: Hypotension resolved. Off pressors now. oral midodrine discontinued. Remains tachycardic. Continue propranolol, 10 mg three times daily, for anticatabolic effects and persistent tachycardia. Add iron and vitamin C for anemia. Respiratory: Respiratory failure secondary to ARDS with significant fibrotic changes. Pneumomediastinum has resolved.Trach upsized to 8 cuffed Shiley, still some leak. Remains hypercarbic with very stiff lungs and poor compliance. May need evaluation for lung transplant at some point.Cancel bronchoscopy Renal/lytes: Kidney function back to normal. Electrolyte replacement as needed. Try and keep on slight negative balance. He does have evidence of peripheral edema. Echo showed collapsibility of IVC suggestive of intravascular volume depletion. Acid-base status does demonstrate significant respiratory acidosis. Continue free water via PEG tube: 200 mL every 4. Discontinue e-lyte replacement protocol. : Prazosin DC'd. Discontinuing straight catheter as patient is on warfarin. Voiding spontaneously. ID: Coag negative staph in blood 3 out of 4 bottles. Stopped after 8 days vancomycin white count and fever curve are better. Surveillance cultures negative. Heme:History of factor V Leiden with acute DVT. On therapeutic Lovenox. Mild anemia. No signs of bleeding.INR remains subtherapeutic -- warfarin 15mg today. GI:Continue tube feeding. Check prealbumin. On Protonix, adding minerals and zinc. Lactulose prn added due to starting iron as above. Endo: Glycemic control per protocol.Discussion with who elected to proceed with oxandrolone therapy as she felt the benfits of this outweighed theoretical risk of increased clotting in the setting of Factor V Leiden history in patient. Continue 48-hour labs and continue to normalize patient with aggressive physical therapy. Stable for transfer to LTAC -- unlikely to occur over weekend per Case Management Admission and Anticipated Discharge Date Admission Date: November 03, 2021 Supervising Physician Co-Signing Physician Notes Dr. Alaniz was resident physician during care of patient. I separately evaluated patient for orourke portions of the history and the exam. I was present during the critical portion of medical decision making, and I discussed the case with the resident. I generally agree with the findings and plan. Cancel bronchoscopy this was to evaluate for mucous plugs and more to evaluate upper airway and need for trach change. I have ordered a Bivona foam cuffed to facilitate patient's comfort with mechanical ventilation however he is tolerating adequately at this time and is hemodynamically stable and I believe an appropriate candidate for transfer to the long-term acute care facility.. Fl at affect increase Prozac to 40 mg daily. No significant change in INR continue Lovenox give 15 mg Coumadin today. Subjective No acute events overnight. On mechanical vent. Weak and tired. Review of Systems Review of Systems: unable to fully review secondary to tracheostomy Physical Exam Physical Exam: General: Alert, following commands HEENT: Atraumatic, PERRL, tracheostomy tube in place Cardiovascular: Tachycardic, regular rhythm. -mgr Respiratory: CTAB, -wrr Gastrointestinal: NTND, BS+x4 Musculoskeletal: No clubbing, no cyanosis. 1+ pitting edema BLE Skin: Warm and dry, no rashes or lesions Results & Data Results & Data ([facility]) Vital Signs (Past 12 Hours) Vital Signs Temp Pulse Resp BP Pulse Ox 12/19/21 06:00 116 H 35 H 141/77 H 93 12/19/21 05:00 116 H 34 H 138/73 90 12/19/21 04:00 36.8 C 116 H 29 H 128/67 94 12/19/21 03:55 118 H 28 H 96 12/19/21 03:00 112 H 23 112/60 93 12/19/21 02:00 105 H 28 H 137/68 95 12/19/21 01:00 105 H 26 H 130/68 93 12/19/21 00:00 36.8 C 103 H 31 H 117/66 94 12/18/21 23:00 105 H 33 H 125/64 93 12/18/21 22:35 97 H 33 H 95 12/18/21 22:00 106 H 35 H 122/60 94 12/18/21 21:00 100 H 35 H 111/64 94 12/18/21 20:00 36.8 C 102 H 33 H 117/62 98 12/18/21 19:40 109 H 32 H 98 12/18/21 19:30 104 H 30 H 124/60 95 Critical Care Results & Data Vital Signs (Past 12 Hours) Vital Signs Temp Pulse Resp BP Pulse Ox 12/19/21 06:00 116 H 35 H 141/77 H 93 12/19/21 05:00 116 H 34 H 138/73 90 12/19/21 04:00 36.8 C 116 H 29 H 128/67 94 12/19/21 03:55 118 H 28 H 96 12/19/21 03:00 112 H 23 112/60 93 12/19/21 02:00 105 H 28 H 137/68 95 12/19/21 01:00 105 H 26 H 130/68 93 12/19/21 00:00 36.8 C 103 H 31 H 117/66 94 12/18/21 23:00 105 H 33 H 125/64 93 12/18/21 22:35 97 H 33 H 95 12/18/21 22:00 106 H 35 H 122/60 94 12/18/21 21:00 100 H 35 H 111/64 94 12/18/21 20:00 36.8 C 102 H 33 H 117/62 98 12/18/21 19:40 109 H 32 H 98 12/18/21 19:30 104 H 30 H 124/60 95 Lab & Micro Results (Past 24 Hours) RBC 2.42 M/uL (4.7-6.1) L 12/19/21 WBC 10.75 K/uL (4.8-10.8) 12/19/21 Hgb 7.0 g/dL (14.0-18.0) L 12/19/21 Hct 24.4 % (42-52) L 12/19/21 MCV 100.8 fL (80-100) H 12/19/21 MCH 28.9 pg (25-34) 12/19/21 MCHC 28.7 g/dL (32-36) L 12/19/21 RDW Standard Deviation 60.4 fL (36.4-46.3) H 12/19/21 RDW Coefficient of Variation 16.4 % (11.5-14.5) H 12/19/21 Plt Count 247 K/uL (130-400) 12/19/21 MPV 10.3 fL (7.4-10.4) 12/19/21 Neutrophils (%) (Auto) 79.0 % 12/19/21 Lymphocytes (%) (Auto) 10.0 % 12/19/21 Monocytes # (Auto) 0.80 K/uL (0.11-0.59) H 12/19/21 Eosinophils # (Auto) 0.35 K/uL (0-0.5) 12/19/21 Immature Granulocyte % (Auto) 0.2 % 12/19/21 Neutrophils # (Auto) 8.49 K/uL (1.4-6.5) H 12/19/21 Lymphocytes # (Auto) 1.08 K/uL (1.2-3.4) L 12/19/21 Monocytes # (Auto) 0.80 K/uL (0.11-0.59) H 12/19/21 Eosinophils # (Auto) 0.35 K/uL (0-0.5) 12/19/21 Basophils # (Auto) 0.01 K/uL (0-0.2) 12/19/21 Immature Granulocyte # (Auto) 0.02 K/uL (0.00-0.02) 12/19/21 Stomatocytes 1+ 12/19/21 Na 141 mmol/L (136-145) 12/19/21 K 4.0 mmol/L (3.5-5.1) 12/19/21 Cl 99 mmol/L (98-107) 12/19/21 CO2 44 mmol/L (21-32) H* 12/19/21 Anion Gap -2 (3-11) L 12/19/21 BUN 34 mg/dl (6-23) H 12/19/21 Creatinine 0.78 mg/dl (0.6-1.4) 12/19/21 Estimated GFR ( Amer) 115.3 ml/min 12/19/21 Estimated GFR (Non-Af Amer) 99.5 ml/min 12/19/21 BUN/Creatinine Ratio 43.6 (10-20) H 12/19/21 Glu 124 mg/dl (70-99(Fasting)) H 12/19/21 Ca 8.5 mg/dl (8.5-10.1) 12/19/21 Phosphorus Level 1.9 mg/dl (2.5-4.9) L 12/19/21 Mg 2.2 mg/dl (1.7-2.4) 12/19/21 04:54 12/19/21 Calcium Level 8.5 mg/dl (8.5-10.1) 12/19/21 04:54 12/19/21 Prothromb Time International Ratio 1.1 (0.9-1.1) 12/19/21 04:54 12/19/21 Diagnostic Findings (Past 24 Hours) Chest X-Ray 12/18/21 10:20 XR chest 1V portable CLINICAL HISTORY: Intubated. Follow-up bilateral airspace opacities COMPARISON STUDY: 12/14/2021 TECHNIQUE: 1 view of the chest FINDINGS: Single frontal view of the chest demonstrates the heart to again be enlarged. Tracheostomy tube is again seen and unchanged. Compared to the previous examination, there has been continued worsening of bilateral interstitial and alveolar opacities. There is no evidence for pleural effusion. There is no evidence for vascular congestion. There is no acute osseous pathology. IMPRESSION: Interval worsening of bilateral interstitial and alveolar opacities. ACT 112: Negative or not required by law. Electronically signed by: El Rebolledo M.D. 12/18/2021 10:35 AM I & O Totals 24 Hours 12/18/21 12/19/21 12/20/21 06:59 06:59 06:59 Intake Total 2745.5 / 2745.5 2496 / 2496 Output Total 833 / 833 1200 / 1200 Balance 1912.5 / 1912.5 1296 / 1296 Cumulative 11/03/21 14:22 thru 12/19/21 06:00 Intake Total 52471.764 Output Total 07678 Balance -160.236 RT Ventilator Mngmt (Last Documented) Ventilator Ordered Settings Ventilator Support Mode Assist Control 12/19/21 04:00 Respiratory Rate 35 12/19/21 06:00 Ventilator Tidal Volume 480 12/19/21 04:00 Setting Minute Ventilation 12 12/19/21 03:55 Ventilator Positive Pressure 14 12/18/21 16:00 Support Setting Positive End Expiratory 5 12/19/21 03:55 Pressure Fraction of Inspired Oxygen 55 12/19/21 06:00 Peak Inspiratory Flow 60 12/15/21 16:15 Inspiratory Pressure 35 12/14/21 08:54 Machine Comment decreased FiO2 to 55% 12/18/21 19:40 Ventilator - PT Measurements Respiratory Rate 35 Exhaled Tidal Volume 477 Minute Ventilation 12 Peak Inspiratory Airway 33 Pressure Plateau Pressure 26 Respiratory Cycle Inspiratory: 1:2.1 Expiratory Ratio Inspiratory Phase Time 0.60 End-Tidal CO2 64 Static Lung Compliance 22.71 Dynamic Lung Compliance 17.04 Normal Static Lung Compliance 45.00 Patient Measurements Comment Per patient request, remaining on A/C settings at this time for resp. comfort Resident Activity Tracking Resident Involvement: Resident Care Provided Care Provided: Adult Hospital Medicine
[2021-12-19] MEDS: MIDODRINE HCL 2.5 MG TAB PO SCH ×3 (07:44→16:13)
--- NOTE | 2021-12-19 10:00 | Billing Data ---
Date of Service December 19, 2021 Coding Level of Care Code Critical Care 1st - mins
--- NOTE | 2021-12-19 10:04 | Billing Data ---
Date of Service December 19, 2021 Coding Level of Care Code 10898 Subseq Hosp Care Lvl 3
--- NOTE | 2021-12-19 10:43 | Hospitalist Progress Note ---
Date of Service December 19, 2021 Assessment & Plan (1) Acute respiratory failure: (2) ARDS (adult respiratory distress syndrome): (3) 2019 novel coronavirus-infected pneumonia (NCIP): Plan: Respiratory failure 2/2 ARDS with fibrotic changes. Pneumomediastinum has resolved. Intubated on 11/20/21 --> 11/26/2021 tracheostomy status, on mechanical ventilation being managed per critical care team. Remains on ventilator in ICU, wean as tolerated. Currently on hi flow hooked into trach via adapter, was getting tired last night and placed back to vent overnight. Completed dexamethasone. 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 Vanc stopped after 8 days. Remains afebrile and well appearing clinically. 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 Cont Lovenox. Plan: Plan for LTAC once off vent and more stable. DNR/DNI ROS-No Headache, No Visual Changes, No Nausea, No Vomiting, No Fever, No Chills, No Neck Pain or Stiffness, No Chest Pain, No Palpitations, + SOB, + RAZA, + Cough, + Sputum, No Wheezing, No Abdominal Pain, No Diarrhea, No Hematemesis, No Hemoptysis, No Unexpected Weight Loss, No Flank pain, No Melena, No Hematochezia, No Frequency, No Urgency, No Burning, No Hematuria, No Rashes, No Diaphoresis. Appetite is poor, +Weakness Physical Exam Gen-AAO x 3, NAD, Afebrile, +Trach, Tachypneic Head-NCAT, EOMI, PERRLA, Anicteric Sclera, No Posterior Pharyngeal Erythema Neck-Supple, No JVD, No Thyromegaly, No Masses, No LAD, No Bruits Lungs-Clear to Auscultation Bilaterally, No Rales, No Rhonchi, No Wheezing, No Crepitus Chest-Tachy No S4, +S1, +S2, No S3, No Murmurs, No Rubs, No Gallops, No Ectopy Abdomen-Soft, Bowel Sounds Present, Non Tender, Non Distended, No Hepatomegaly, No Splenomegaly, No Palpable Masses, No Rebound, No Rigidity, No Guarding Musculoskeletal-Full Range of Motion Bilaterally, No CVAT Extremities-No Cyanosis, No Clubbing, No Edema Nuero-Cranial Nerves II-XII grossly intact, Motor WNL, DTRs WNL, Strength WNL, Non Focal Psych-Normal Mood Admission and Anticipated Discharge Date Admission Date: November 03, 2021 Subjective No acute events overnight. On vent. Paralyzed Results & Data Results & Data ([facility]) Vital Signs (Past 12 Hours) Vital Signs Temp Pulse Resp BP BP Pulse Ox 12/19/21 08:20 115 H 26 H 92 12/19/21 08:00 36.9 C 119 H 32 H 131/71 91 12/19/21 06:00 116 H 35 H 141/77 H 93 12/19/21 05:00 116 H 34 H 138/73 90 12/19/21 04:00 36.8 C 116 H 29 H 128/67 94 12/19/21 03:55 118 H 28 H 96 12/19/21 03:00 112 H 23 112/60 93 12/19/21 02:00 105 H 28 H 137/68 95 12/19/21 01:00 105 H 26 H 130/68 93 12/19/21 00:00 36.8 C 103 H 31 H 117/66 94 12/18/21 23:00 105 H 33 H 125/64 93 Laboratory Results reviewed
[2021-12-19] MEDS: ASCORBIC ACID 500 MG TAB PO SCH (11:30)
[2021-12-19] MEDS: ATORVASTATIN 20 MG TAB PO SCH (11:30)
[2021-12-19] MEDS: LANSOPRAZOLE 30 MG SOLTAB NG SCH (11:31)
[2021-12-19] MEDS: ZINC SULFATE 220 MG CAPSULE PO SCH (11:31)
[2021-12-19] MEDS: WHISKEY 1 DOSE PO SCH (11:31)
[2021-12-19] MEDS: FERROUS SULFATE 325 MG/7.4 ML UDP PO SCH (11:31)
[2021-12-19] MEDS: PROPRANOLOL HCL 10 MG TAB PO SCH ×3 (11:31→20:57)
[2021-12-19] MEDS: OXANDROLONE 10 MG TABLET PO SCH (11:31)
[2021-12-19] MEDS: MULTI VIT W/MINERALS LIQUID 15 ML UDP PO SCH (11:31)
[2021-12-19] MEDS: DOCUSATE SODIUM SYRUP 100 MG/10 ML UDC PO SCH ×2 (11:31→20:57)
[2021-12-19] MEDS ORDERED: WARFARIN SOD 5 MG TAB PO ONE (16:00)
[2021-12-19] MEDS: SIMETHICONE 40 MG/0.6 ML 30ML PO PRN (16:12)
[2021-12-19] MEDS ORDERED: ACETAMINOPHEN 1,000 MG/100 ML VIAL IV ONE (16:45)
[2021-12-20] MEDS: INSULIN HUMAN REGULAR SC SCH ×5 (00:23→23:16)
[2021-12-20] MEDS: ENOXAPARIN 80 MG/0.8 ML SYR SQ SCH ×3 (00:26→23:15)
[2021-12-20] MEDS: TUBE FEEDING WATER FLUSH PEG SCH ×7 (00:27→23:17)
[2021-12-20] MEDS: ACETAMINOPHEN SUSP 500 MG/15.6 ML UDP PO PRN ×2 (03:59→08:45)
[2021-12-20 06:23] LABS: INR 1.4 (0.9-1.1)
--- NOTE | 2021-12-20 07:00 | Critical Care Progress Note ---
Date of Service December 20, 2021 Assessment & Plan (1) Acute hypoxemic respiratory failure due to COVID-19: (2) COVID-19: (3) Lung fibrosis: (4) ARDS (adult respiratory distress syndrome): (5) Factor V Leiden carrier: (6) Bacteremia: Plan: Neuro: Continue to try and mobilize as tolerated. PT and OT in progress.Continue Prozac 40 mg daily. Cardiovascular: Hypotension resolved. Off pressors now. oral midodrine discontinued. Remains tachycardic. Continue propranolol, 10 mg three times daily, for anticatabolic effects and persistent tachycardia. Add iron and vitamin C for anemia. Respiratory: Respiratory failure secondary to ARDS with significant fibrotic changes. Pneumomediastinum has resolved.Trach upsized to 8 cuffed Shiley, still some leak.Bivona foam cuffed ordered to facilitate patient's comfort with mechanical ventilation but he is tolerating currently so will hold off. Remains hypercarbic with very stiff lungs and poor compliance. May need evaluation for lung transplant at some point. Renal/lytes: Kidney function back to normal. Electrolyte replacement as needed. Try and keep on slight negative balance. He does have evidence of peripheral edema. Echo showed collapsibility of IVC suggestive of intravascular volume depletion. Continue free water via PEG tube: 200 mL every 4. Discontinue e-lyte replacement protocol. : Prazosin DC'd. Discontinuing straight catheter as patient is on warfarin. Voiding spontaneously. ID: Coag negative staph in blood 3 out of 4 bottles. Stopped after 8 days vancomycin white count and fever curve are better. Surveillance cultures negative. Heme:History of factor V Leiden with acute DVT. On therapeutic Lovenox. Mild anemia. No signs of bleeding.INR remains subtherapeutic -- warfarin 15mg today. GI:Tube feeds currently on hold secondary to several episodes of emesis over past two days -- started simethicone. Prealbumin of 10 12/14/21. On oxandrolone as below. On Protonix, adding minerals and zinc. Lactulose prn added due to starting iron as above. Endo: Glycemic control per protocol.Discussion with who elected to proceed with oxandrolone therapy as she felt the benefits of this outweighed theoretical risk of increased clotting in the setting of Factor V Leiden history in patient. Integumentary: New-onset rash as of 12/19/21 that is asymptomatic--hold on derm consult for now. Consider consult if rash continues into next week. Continue 48-hour labs and continue to normalize patient with aggressive physical therapy. Stable for transfer to LTAC -- unlikely to occur over weekend per Case Management Admission and Anticipated Discharge Date Admission Date: November 03, 2021 Supervising Physician Co-Signing Physician Notes Dr. Alanzi was resident physician during care of patient. I separately evaluated patient for orourke portions of the history and the exam. I was present during the critical portion of medical decision making, and I discussed the case with the resident. I generally agree with the findings and plan. Patient is tolerating ventilator at 60% FiO2. There is a Bivona foam cuffed ordered to facilitate patient's comfort with mechanical ventilation however he is tolerating adequately at this time and is hemodynamically stable and I believe an appropriate candidate for transfer to the long-term acute care facility. Transitioning to warfarin 12 mg Coumadin today. Continued observation of skin rash as he is largely asymptomatic at this time a dermatology consult can wait if it still present, Wednesday would strongly consider dermatology consult. Do not believe that this rash is premium service representative of severe underlying disease process such as erythema multiforme nor dress syndrome Subjective No acute events overnight. Mechanically ventilated. Review of Systems Review of Systems: unable to fully review secondary to tracheostomy Physical Exam Physical Exam: General: Somnolent, not following commands HEENT: Atraumatic, tracheostomy tube in place Cardiovascular: Tachycardic, regular rhythm. -mgr Respiratory: CTAB, -wrr Gastrointestinal: NTND, BS+x4 Musculoskeletal: No clubbing, no cyanosis. 1+ pitting edema BLE Skin: Warm and dry, no rashes or lesions Results & Data Results & Data ([facility]) Vital Signs (Past 12 Hours) Vital Signs Temp Pulse Resp BP Pulse Ox 12/20/21 06:00 111 H 28 H 117/61 91 12/20/21 05:00 37.9 C H 120 H 28 H 115/64 89 L 12/20/21 04:00 38.1 C H 119 H 28 H 121/63 92 12/20/21 03:24 115 H 26 H 92 12/20/21 03:00 120 H 27 H 137/62 90 12/20/21 02:00 113 H 24 123/62 91 12/20/21 01:00 108 H 25 H 127/66 91 12/20/21 00:00 37.0 C 115 H 23 123/67 95 12/19/21 23:20 115 H 26 H 88 L 12/19/21 23:00 104 H 24 123/62 95 12/19/21 22:00 105 H 29 H 113/62 91 12/19/21 21:00 116 H 32 H 115/59 L 91 12/19/21 20:00 117 H 28 H 107/67 88 L 12/19/21 19:40 115 H 26 H 93 12/19/21 19:00 118 H 29 H 132/71 92 Critical Care Results & Data Vital Signs (Past 12 Hours) Vital Signs Temp Pulse Resp BP Pulse Ox 12/20/21 06:00 111 H 28 H 117/61 91 12/20/21 05:00 37.9 C H 120 H 28 H 115/64 89 L 12/20/21 04:00 38.1 C H 119 H 28 H 121/63 92 12/20/21 03:24 115 H 26 H 92 12/20/21 03:00 120 H 27 H 137/62 90 12/20/21 02:00 113 H 24 123/62 91 12/20/21 01:00 108 H 25 H 127/66 91 12/20/21 00:00 37.0 C 115 H 23 123/67 95 12/19/21 23:20 115 H 26 H 88 L 12/19/21 23:00 104 H 24 123/62 95 12/19/21 22:00 105 H 29 H 113/62 91 12/19/21 21:00 116 H 32 H 115/59 L 91 12/19/21 20:00 117 H 28 H 107/67 88 L 12/19/21 19:40 115 H 26 H 93 Lab & Micro Results (Past 24 Hours) No Data to Display No Data to Display Prothromb Time International Ratio 1.4 (0.9-1.1) H 12/20/21 05:25 12/20/21 I & O Totals 24 Hours 12/19/21 12/20/21 12/21/21 06:59 06:59 06:59 Intake Total 2496 / 2496 1072 / 1072 Output Total 1200 / 1200 950 / 950 Balance 1296 / 1296 122 / 122 Cumulative 11/03/21 14:22 thru 12/20/21 06:00 Intake Total 70129.764 Output Total 14725 Balance -38.236 RT Ventilator Mngmt (Last Documented) Ventilator Ordered Settings Ventilator Support Mode Assist Control 12/20/21 04:00 Respiratory Rate 28 12/20/21 06:00 Ventilator Tidal Volume 480 12/20/21 04:00 Setting Minute Ventilation 11.1 12/20/21 03:24 Ventilator Positive Pressure 14 12/19/21 08:00 Support Setting Positive End Expiratory 5 12/20/21 04:00 Pressure Fraction of Inspired Oxygen 60 12/20/21 06:00 Peak Inspiratory Flow 64 12/19/21 16:07 Inspiratory Pressure 35 12/14/21 08:54 Machine Comment increased to 60% 12/19/21 10:45 Ventilator - PT Measurements Respiratory Rate 28 Exhaled Tidal Volume 478 Minute Ventilation 11.1 Peak Inspiratory Airway 37 Pressure Plateau Pressure 22 Respiratory Cycle Inspiratory: 1:2.6 Expiratory Ratio Inspiratory Phase Time 0.60 End-Tidal CO2 69 Static Lung Compliance 28.12 Dynamic Lung Compliance 14.94 Normal Static Lung Compliance 44.00 Patient Measurements Comment increased FiO2 to 70% Resident Activity Tracking Resident Involvement: Resident Care Provided Care Provided: Adult Hospital Medicine
[2021-12-20] MEDS ORDERED: WARFARIN SOD 6 MG TAB PO ONE (08:16)
--- NOTE | 2021-12-20 08:18 | Billing Data ---
Date of Service December 20, 2021 Coding Level of Care Code 49201 Subseq Hosp Care Lvl 3 Comment Please add ventilator management code
[2021-12-20] MEDS: DOCUSATE SODIUM SYRUP 100 MG/10 ML UDC PO SCH ×2 (08:45→20:00)
[2021-12-20] MEDS: PROPRANOLOL HCL 10 MG TAB PO SCH ×3 (08:45→20:01)
[2021-12-20] MEDS: MIDODRINE HCL 2.5 MG TAB PO SCH ×3 (08:46→17:43)
[2021-12-20] MEDS: ZINC SULFATE 220 MG CAPSULE PO SCH (08:46)
[2021-12-20] MEDS: LANSOPRAZOLE 30 MG SOLTAB NG SCH (08:46)
[2021-12-20] MEDS: ATORVASTATIN 20 MG TAB PO SCH (08:46)
[2021-12-20] MEDS: FLUoxetine HCL 20 MG/5 ML 120ML BTL PO SCH (08:47)
[2021-12-20] MEDS: MULTI VIT W/MINERALS LIQUID 15 ML UDP PO SCH (08:47)
[2021-12-20] MEDS: FERROUS SULFATE 325 MG/7.4 ML UDP PO SCH (08:48)
[2021-12-20] MEDS: OXANDROLONE 10 MG TABLET PO SCH (08:52)
[2021-12-20] MEDS: ASCORBIC ACID 500 MG TAB PO SCH (08:53)
[2021-12-20] MEDS: WHISKEY 1 DOSE PO SCH (09:30)
--- NOTE | 2021-12-20 10:05 | Hospitalist Progress Note ---
Date of Service December 20, 2021 Assessment & Plan (1) Acute respiratory failure: (2) ARDS (adult respiratory distress syndrome): (3) 2019 novel coronavirus-infected pneumonia (NCIP): Plan: Respiratory failure 2/2 ARDS with fibrotic changes. Pneumomediastinum has resolved. Intubated on 11/20/21 --> 11/26/2021 tracheostomy status, on mechanical ventilation being managed per critical care team. Remains on ventilator in ICU, wean as tolerated. Currently back on the ventilator. Completed dexamethasone. 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 Vanc stopped after 8 days. Now febrile nontoxic- appearing. 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 Cont full dose Lovenox. Plan: Plan for LTAC once off vent and more stable. DNR/DNI ROS-open no history today Physical Exam Gen-moderate respiratory distress, febrile, +Trach, Tachypneic and tachycardic, ill-appearing Head-NCAT, EOMI, PERRLA, Anicteric Sclera, No Posterior Pharyngeal Erythema Neck-Supple, No JVD, No Thyromegaly, No Masses, No LAD, No Bruits, positive trach Lungs-Clear to Auscultation Bilaterally, No Rales, No Rhonchi, No Wheezing, No Crepitus Chest-Tachy No S4, +S1, +S2, No S3, No Murmurs, No Rubs, No Gallops, No Ectopy Abdomen-Soft, Bowel Sounds Present, Non Tender, Non Distended, No Hepatomegaly, No Splenomegaly, No Palpable Masses, No Rebound, No Rigidity, No Guarding Musculoskeletal-Full Range of Motion Bilaterally, No CVAT Extremities-No Cyanosis, No Clubbing, No Edema Nuero-Cranial Nerves II-XII grossly intact, Motor WNL, DTRs WNL, Strength WNL, Non Focal Psych-somnolent Admission and Anticipated Discharge Date Admission Date: November 03, 2021 Subjective Patient seen today offers no history, looks extremely toxic and ill. Results & Data Results & Data ([facility]) Vital Signs (Past 12 Hours) Vital Signs Temp Pulse Resp BP Pulse Ox 12/20/21 07:49 37.2 C 12/20/21 07:00 111 H 25 H 118/67 92 01/22/22 06:00 111 H 28 H 117/61 91 12/20/21 05:00 37.9 C H 120 H 28 H 115/64 89 L 12/20/21 04:00 38.1 C H 119 H 28 H 121/63 92 12/20/21 03:24 115 H 26 H 92 12/20/21 03:00 120 H 27 H 137/62 90 12/20/21 02:00 113 H 24 123/62 91 12/20/21 01:00 108 H 25 H 127/66 91 12/20/21 00:00 37.0 C 115 H 23 123/67 95 12/19/21 23:20 115 H 26 H 88 L 12/19/21 23:00 104 H 24 123/62 95 12/19/21 22:00 105 H 29 H 113/62 91 Laboratory Results Reviewed
--- NOTE | 2021-12-20 10:17 | Pharmacy Report ---
Pharmacy Glycemic Short Note 2 - Date of Service December 20, 2021 - Glycemic Short BSG Results (Last 24 hours): 12/19/21 12/19/21 12/20/21 11:47 17:38 00:18 POC Glucose 188 H 107 H 100 H 12/20/21 05:48 POC Glucose 111 H OUTPATIENT ANTIDIABETIC REGIMEN: * n/a * A1c 6.0% ASSESSMENT: 12/20/21: * Patient's BSGs have been relatively stable past several days, with no adjustments to glycemic regimen. * Patient has been receiving Peptamen tube feeds at 60cc/hr. These have been placed on hold intermittently d/t emesis. * Pt has been receiving ~10-15 units of insulin daily. * No changes required at this time. PLAN FOR INPATIENT GLYCEMIC CONTROL: * Basal: * none * Bolus insulin: * NovoLog per scale ACHS or Q6hrs while NPO * Goal Range: Low 110 mg/dL - High 140 mg/dL * Correction Factor: 40 mg/dL/unit * Nutritional / Prandial insulin per carb ratio of 1 unit per 20 grams CHO consumed
[2021-12-20] MEDS: SIMETHICONE 40 MG/0.6 ML 30ML PO PRN ×2 (11:14→17:44)
[2021-12-20] MEDS: METOCLOPRAMIDE HCL 5 MG/5 ML UDP PO SCH (22:11)
[2021-12-21] MEDS: TUBE FEEDING WATER FLUSH PEG SCH ×6 (03:36→23:56)
[2021-12-21] MEDS: METOCLOPRAMIDE HCL 5 MG/5 ML UDP PO SCH ×2 (05:25→13:25)
[2021-12-21] MEDS: INSULIN HUMAN REGULAR SC SCH ×3 (05:25→17:51)
[2021-12-21 05:43] LABS: Hematocrit (blood only) 25.6 % (42-52); Hemoglobin 7.3 g/dL (14.0-18.0); Mean Corpuscular Hemoglobin 28.6 pg (25-34); Mean Corpuscular Hgb Conc 28.5 g/dL (32-36); Mean Corpuscular Volume 100.4 fL (80-100); Mean Platelet Volume 10.7 fL (7.4-10.4); Platelet Count 252 K/uL (130-400); RDW Coefficient of Variation 16.9 % (11.5-14.5); RDW Standard Deviation 61.7 fL (36.4-46.3); Red Blood Count 2.55 M/uL (4.7-6.1); White Blood Count 11.08 K/uL (4.8-10.8)
[2021-12-21 06:16] LABS: Calcium 8.8 mg/dl (8.5-10.1); Creatinine Clr Calc Pharmacy 99.9 ml/min; Est GFR (African American) 115.3 ml/min; Est GFR (Non-African American) 99.5 ml/min; Magnesium 1.9 mg/dl (1.7-2.4); Phosphorus 1.3 mg/dl (2.5-4.9); Potassium 3.9 mmol/L (3.5-5.1)
[2021-12-21 06:38] LABS: Basophils # (auto) 0.01 K/uL (0-0.2); Basophils % (auto) 0.1 %; Eosinophils # (auto) 0.24 K/uL (0-0.5); Eosinophils % (auto) 2.2 %; Immature Granulocytes # (auto) 0.02 K/uL (0.00-0.02); Immature Granulocytes % (auto) 0.2 %; Lymphocytes # (auto) 1.55 K/uL (1.2-3.4); Monocytes % (auto) 7.2 %; Neutrophils # (auto) 8.46 K/uL (1.4-6.5); Neutrophils % (auto) 76.3 %; Stomatocytes 2+
[2021-12-21] MEDS ORDERED: POTASSIUM PHOS 3 MMOL/1 ML INFUSION IV STA ×2 (06:40→10:07)
[2021-12-21] MEDS ORDERED: POTASSIUM PHOSPHATE 15 MMOL in SODIUM CHLORIDE 0.9% 250 ML IV ONE (07:00)
[2021-12-21] MEDS: ZINC SULFATE 220 MG CAPSULE PO SCH (08:23)
[2021-12-21] MEDS: DOCUSATE SODIUM SYRUP 100 MG/10 ML UDC PO SCH ×3 (08:23→20:20)
[2021-12-21] MEDS: MULTI VIT W/MINERALS LIQUID 15 ML UDP PO SCH (08:23)
[2021-12-21] MEDS: MIDODRINE HCL 2.5 MG TAB PO SCH ×3 (08:23→17:51)
[2021-12-21] MEDS: FLUoxetine HCL 20 MG/5 ML 120ML BTL PO SCH (08:24)
[2021-12-21] MEDS: ATORVASTATIN 20 MG TAB PO SCH (08:24)
[2021-12-21] MEDS: FERROUS SULFATE 325 MG/7.4 ML UDP PO SCH (08:24)
[2021-12-21] MEDS: WHISKEY 1 DOSE PO SCH (08:25)
[2021-12-21] MEDS: ASCORBIC ACID 500 MG TAB PO SCH (08:25)
[2021-12-21] MEDS: LANSOPRAZOLE 30 MG SOLTAB NG SCH (08:25)
[2021-12-21] MEDS: PROPRANOLOL HCL 10 MG TAB PO SCH ×3 (08:25→20:19)
[2021-12-21] MEDS: OXANDROLONE 10 MG TABLET PO SCH (08:28)
--- NOTE | 2021-12-21 09:28 | Hospitalist Progress Note ---
Date of Service December 21, 2021 Assessment & Plan (1) Acute respiratory failure: (2) ARDS (adult respiratory distress syndrome): (3) 2019 novel coronavirus-infected pneumonia (NCIP): Plan: Respiratory failure 2/2 ARDS with fibrotic changes. Pneumomediastinum has resolved. Intubated on 11/20/21 --> 11/26/2021 tracheostomy status, on mechanical ventilation being managed per critical care team. Remains on ventilator in ICU, wean as tolerated. Currently back on the ventilator. Completed dexamethasone. 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 Now febrile nontoxic- appearing. 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 Cont full dose Lovenox. Plan: Plan for LTAC once off vent and more stable. DNR/DNI ROS-open no history today Physical Exam Gen-NAD, febrile, +Trach, tachycardic, ill-appearing, better than yesterday Head-NCAT, EOMI, PERRLA, Anicteric Sclera, No Posterior Pharyngeal Erythema Neck-Supple, No JVD, No Thyromegaly, No Masses, No LAD, No Bruits, positive trach Lungs-+ Rhonchi, No Wheezing, No Crepitus Chest-Tachy No S4, +S1, +S2, No S3, No Murmurs, No Rubs, No Gallops, No Ectopy Abdomen-Soft, Bowel Sounds Present, Non Tender, Non Distended, No Hepatomegaly, No Splenomegaly, No Palpable Masses, No Rebound, No Rigidity, No Guarding Musculoskeletal-Full Range of Motion Bilaterally, No CVAT Extremities-No Cyanosis, No Clubbing, No Edema Nuero-Cranial Nerves II-XII grossly intact, Motor WNL, DTRs WNL, Strength WNL, Non Focal Psych-calm today Admission and Anticipated Discharge Date Admission Date: November 03, 2021 Subjective Patient seen today offers more interactive today, tries to talk, cooperative. Results & Data Results & Data ([facility]) Vital Signs (Past 12 Hours) Vital Signs Temp Pulse Resp BP Pulse Ox 12/21/21 06:00 102 H 24 120/67 98 12/21/21 05:00 102 H 34 H 117/62 98 12/21/21 04:00 106 H 32 H 119/54 L 98 12/21/21 03:00 102 H 38 H 107/58 L 98 12/21/21 02:21 100 H 34 H 98 12/21/21 02:00 99 H 35 H 118/62 98 12/21/21 01:00 98 H 35 H 114/68 98 12/21/21 00:00 37.2 C 100 H 26 H 98 12/20/21 23:00 95 H 34 H 116/62 97 12/20/21 22:31 93 H 30 H 99 12/20/21 22:00 90 27 H 99/59 L 98 Laboratory Results Current Diagnoses Activated protein C resistance (11/03/21) Elevated white blood cell count, unspecified (11/03/21) Nutritional deficiency, unspecified (11/03/21) Acute embolism and thrombosis of unspecified deep veins of unspecified lower extremity (11/03/21) Pneumonia due to coronavirus disease 2019 (11/03/21) Acute respiratory distress syndrome (11/03/21) Pulmonary fibrosis, unspecified (11/03/21) Acute respiratory failure, unspecified whether with hypoxia or hypercapnia (11/03/21) Acute respiratory failure with hypoxia (11/03/21) Interstitial emphysema (11/03/21) Nausea with vomiting, unspecified (11/03/21) Diarrhea, unspecified (11/03/21) Bacteremia (11/03/21) COVID-19 (11/03/21) Encounter for other preprocedural examination (11/03/21) Allergies Sulfa (Sulfonamide Antibiotics) Allergy (Intermediate, Verified 11/03/21 19:25) "tongue turned black" Height/Weight/Isolation Height 5 ft 8 in Weight 76.7 kg Isolation Type Removed Precautions Chemistry 12/21/21 04:42 Sodium 143 Potassium 3.9 Chloride 95 L Carbon Dioxide 44 H* Anion Gap 4 BUN 32 H Creatinine 0.78 Glucose 105 H
--- NOTE | 2021-12-21 10:14 | Critical Care Progress Note ---
Date of Service December 21, 2021 Assessment & Plan (1) Acute hypoxemic respiratory failure due to COVID-19: (2) COVID-19: (3) Lung fibrosis: (4) ARDS (adult respiratory distress syndrome): (5) Factor V Leiden carrier: (6) Bacteremia: Plan: Neuro: Continue to try and mobilize as tolerated. PT and OT in progress.Increase Prozac to 40 mg. Cardiovascular: Hypotension resolved. Off pressors now. oral midodrine: 5 mg 3 times daily Remains tachycardic, however improved continue propranolol, 10 mg three times daily, for anticatabolic effects and persistent tachycardia. -Add iron and vitamin C for anemia. Respiratory: Respiratory failure secondary to ARDS with significant fibrotic changes. Pneumomediastinum has resolved.Trach upsized to 8 cuffed Shiley, still some leak. Remains hypercarbic with very stiff lungs and poor compliance. May need evaluation for lung transplant at some point. -The phone Bivona cuffed has been ordered to hopefully facilitate patient comfort with mechanical ventilation -Patient has remained stable on 60% FiO2 continue current vent settings Renal/lytes: Kidney function back to normal. Electrolyte replacement as needed. Try and keep on slight negative balance. He does have evidence of peripheral edema. - Continue free water via PEG tube: 200 mL every 4. : Prazosin DC'd. Discontinuing straight catheter as patient is on warfarin. Voiding spontaneously. ID: Coag negative staph in blood 3 out of 4 bottles. Stopped after 8 days vancomycin white count and fever curve are better. -Surveillance cultures negative., Off antibiotics Heme:History of factor V Leiden with acute DVT. On therapeutic Lovenox. Mild anemia -Iron and vitamin C Long-term anticoagulation with warfarin -Warfarin 10 mg GI:Continue tube feeding. Check prealbumin. On Protonix, adding minerals and zinc. Lactulose prn added due to starting iron as above. Endo: Glycemic control per protocol. Discussion with who elected to proceed with oxandrolone therapy for anticatabolic effects Continue 48-hour labs and continue to normalize patient with aggressive physical therapy. Stable for transfer to LTAC -- unlikely to occur over weekend per Case Management Updated Mary Ann [phone] Admission and Anticipated Discharge Date Admission Date: November 03, 2021 Subjective Yesterday had episodes of burping and occasional vomiting. Minimal residuals Review of Systems Review of Systems: unable to fully review secondary to mechanical ventilation Physical Exam Physical Exam: General: Alert following commands Skin: Warm, dry, Head: Atraumatic Ears, nose, mouth and throat: airway airway patent, tracheostomy tube in place Cardiovascular: Normal peripheral perfusion, tachycardic Respiratory: Ventilator settings reviewed, tachypnea: Unchanged Gastrointestinal: Non distended Musculoskeletal: No deformity Results & Data Results & Data ([facility]) Vital Signs (Past 12 Hours) Vital Signs Temp Pulse Resp BP Pulse Ox 12/21/21 08:00 102 H 33 H 98 12/21/21 06:00 102 H 24 120/67 98 12/21/21 05:00 102 H 34 H 117/62 98 12/21/21 04:00 106 H 32 H 119/54 L 98 12/21/21 03:00 102 H 38 H 107/58 L 98 12/21/21 02:21 100 H 34 H 98 12/21/21 02:00 99 H 35 H 118/62 98 12/21/21 01:00 98 H 35 H 114/68 98 12/21/21 00:00 37.2 C 100 H 26 H 98 12/20/21 23:00 95 H 34 H 116/62 97 12/20/21 22:31 93 H 30 H 99 Critical Care Results & Data Vital Signs (Past 12 Hours) Vital Signs Temp Pulse Resp BP Pulse Ox 12/21/21 08:00 102 H 33 H 98 12/21/21 06:00 102 H 24 120/67 98 12/21/21 05:00 102 H 34 H 117/62 98 12/21/21 04:00 106 H 32 H 119/54 L 98 12/21/21 03:00 102 H 38 H 107/58 L 98 12/21/21 02:21 100 H 34 H 98 12/21/21 02:00 99 H 35 H 118/62 98 12/21/21 01:00 98 H 35 H 114/68 98 12/21/21 00:00 37.2 C 100 H 26 H 98 12/20/21 23:00 95 H 34 H 116/62 97 12/20/21 22:31 93 H 30 H 99 Lab & Micro Results (Past 24 Hours) RBC 2.55 M/uL (4.7-6.1) L 12/21/21 WBC 11.08 K/uL (4.8-10.8) H 12/21/21 Hgb 7.3 g/dL (14.0-18.0) L 12/21/21 Hct 25.6 % (42-52) L 12/21/21 MCV 100.4 fL (80-100) H 12/21/21 MCH 28.6 pg (25-34) 12/21/21 MCHC 28.5 g/dL (32-36) L 12/21/21 RDW Standard Deviation 61.7 fL (36.4-46.3) H 12/21/21 RDW Coefficient of Variation 16.9 % (11.5-14.5) H 12/21/21 Plt Count 252 K/uL (130-400) 12/21/21 MPV 10.7 fL (7.4-10.4) H 12/21/21 Neutrophils (%) (Auto) 76.3 % 12/21/21 Lymphocytes (%) (Auto) 14.0 % 12/21/21 Monocytes # (Auto) 0.80 K/uL (0.11-0.59) H 12/21/21 Eosinophils # (Auto) 0.24 K/uL (0-0.5) 12/21/21 Immature Granulocyte % (Auto) 0.2 % 12/21/21 Neutrophils # (Auto) 8.46 K/uL (1.4-6.5) H 12/21/21 Lymphocytes # (Auto) 1.55 K/uL (1.2-3.4) 12/21/21 Monocytes # (Auto) 0.80 K/uL (0.11-0.59) H 12/21/21 Eosinophils # (Auto) 0.24 K/uL (0-0.5) 12/21/21 Basophils # (Auto) 0.01 K/uL (0-0.2) 12/21/21 Immature Granulocyte # (Auto) 0.02 K/uL (0.00-0.02) 12/21/21 Stomatocytes 2+ 12/21/21 Na 143 mmol/L (136-145) 12/21/21 K 3.9 mmol/L (3.5-5.1) 12/21/21 Cl 95 mmol/L (98-107) L 12/21/21 CO2 44 mmol/L (21-32) H* 12/21/21 Anion Gap 4 (3-11) 12/21/21 BUN 32 mg/dl (6-23) H 12/21/21 Creatinine 0.78 mg/dl (0.6-1.4) 12/21/21 Estimated GFR ( Amer) 115.3 ml/min 12/21/21 Estimated GFR (Non-Af Amer) 99.5 ml/min 12/21/21 BUN/Creatinine Ratio 41.0 (10-20) H 12/21/21 Glu 105 mg/dl (70-99(Fasting)) H 12/21/21 Ca 8.8 mg/dl (8.5-10.1) 12/21/21 Phosphorus Level 1.3 mg/dl (2.5-4.9) L* 12/21/21 Mg 1.9 mg/dl (1.7-2.4) 12/21/21 04:42 12/21/21 Calcium Level 8.8 mg/dl (8.5-10.1) 12/21/21 04:42 12/21/21 I & O Totals 24 Hours 12/20/21 12/21/21 12/22/21 06:59 06:59 06:59 Intake Total 1072 / 1072 0 / 0 Output Total 950 / 950 1950 / 1950 Balance 122 / 122 -1950 / -1950 Cumulative 11/03/21 14:22 thru 12/21/21 06:00 Intake Total 53957.764 Output Total 02386 Balance -1988.236 RT Ventilator Mngmt (Last Documented) Ventilator Ordered Settings Ventilator Support Mode Assist Control 12/21/21 08:00 Respiratory Rate 33 12/21/21 08:00 Ventilator Tidal Volume 480 12/21/21 08:00 Setting Minute Ventilation 13.4 12/21/21 08:00 Ventilator Positive Pressure 5 12/21/21 08:00 Support Setting Positive End Expiratory 5 12/21/21 08:00 Pressure Fraction of Inspired Oxygen 50 12/21/21 08:00 Peak Inspiratory Flow 48 12/21/21 08:00 Inspiratory Pressure 35 12/14/21 08:54 Machine Comment spo2 on 55% was 99%, fio2 dropped 12/20/21 22:31 Ventilator - PT Measurements Respiratory Rate 33 Exhaled Tidal Volume 435 Minute Ventilation 13.4 Peak Inspiratory Airway 29 Pressure Plateau Pressure 16.6 Respiratory Cycle Inspiratory: 1:1.9 Expiratory Ratio Inspiratory Phase Time 0.80 End-Tidal CO2 51 Static Lung Compliance 37.50 Dynamic Lung Compliance 18.13 Normal Static Lung Compliance 45.00 Patient Measurements Comment leak on vent at 40% due to leak from trach Coding Level of Care Code 72801 Subseq Hosp Care Lvl 3 Diagnoses Acute hypoxemic respiratory failure due to COVID-19 U07.1; J96.01 COVID-19 U07.1 Lung fibrosis J84.10 ARDS (adult respiratory distress syndrome) J80 Factor V Leiden carrier D68.51 Bacteremia R78.81 Comment Please add ventilator management code
[2021-12-21] MEDS ORDERED: POTASSIUM PHOSPHATE 21 MMOL in SODIUM CHLORIDE 0.9% 500 ML IV ONE (10:30)
[2021-12-21] MEDS ORDERED: WARFARIN SOD 10 MG TAB PO ONE (10:30)
[2021-12-21 10:48] LABS: INR 3.2 (0.9-1.1); Prothrombin Time 29.3 Seconds (9.0-12.0)
[2021-12-21] MEDS: ENOXAPARIN 80 MG/0.8 ML SYR SQ SCH ×2 (12:31→23:56)
[2021-12-22] MEDS: INSULIN HUMAN REGULAR SC SCH ×5 (00:06→23:39)
[2021-12-22] MEDS: TUBE FEEDING WATER FLUSH PEG SCH ×6 (04:15→23:39)
[2021-12-22 05:34] LABS: Basophils # (auto) 0.01 K/uL (0-0.2); Basophils % (auto) 0.1 %; Eosinophils # (auto) 0.15 K/uL (0-0.5); Hematocrit (blood only) 26.2 % (42-52); Hemoglobin 7.6 g/dL (14.0-18.0); Immature Granulocytes # (auto) 0.01 K/uL (0.00-0.02); Immature Granulocytes % (auto) 0.1 %; Lymphocytes # (auto) 1.57 K/uL (1.2-3.4); Lymphocytes % (auto) 20.8 %; Mean Corpuscular Hemoglobin 28.6 pg (25-34); Mean Corpuscular Volume 98.5 fL (80-100); Mean Platelet Volume 10.6 fL (7.4-10.4); Monocytes # (auto) 0.55 K/uL (0.11-0.59); Monocytes % (auto) 7.3 %; Neutrophils # (auto) 5.25 K/uL (1.4-6.5); Neutrophils % (auto) 69.7 %; Platelet Count 247 K/uL (130-400); RDW Coefficient of Variation 16.6 % (11.5-14.5); RDW Standard Deviation 59.9 fL (36.4-46.3); Red Blood Count 2.66 M/uL (4.7-6.1); White Blood Count 7.54 K/uL (4.8-10.8)
[2021-12-22 06:02] LABS: BUN Creatinine Ratio 33.3 (10-20); Calcium 8.6 mg/dl (8.5-10.1); Creatinine Clr Calc Pharmacy 108.2 ml/min; Est GFR (African American) 119.2 ml/min; Est GFR (Non-African American) 102.8 ml/min; Magnesium 1.6 mg/dl (1.7-2.4)
[2021-12-22 06:05] LABS: INR 4.2 (0.9-1.1); Prothrombin Time 37.9 Seconds (9.0-12.0); Stomatocytes 1+
[2021-12-22] MEDS: ASCORBIC ACID 500 MG TAB PO SCH (07:58)
[2021-12-22] MEDS: ZINC SULFATE 220 MG CAPSULE PO SCH (07:58)
[2021-12-22] MEDS: MIDODRINE HCL 2.5 MG TAB PO SCH (07:58)
[2021-12-22] MEDS: LANSOPRAZOLE 30 MG SOLTAB NG SCH (07:59)
[2021-12-22] MEDS: DOCUSATE SODIUM SYRUP 100 MG/10 ML UDC PO SCH ×2 (07:59→20:24)
[2021-12-22] MEDS: ATORVASTATIN 20 MG TAB PO SCH (07:59)
[2021-12-22] MEDS: FERROUS SULFATE 325 MG/7.4 ML UDP PO SCH (07:59)
[2021-12-22] MEDS: FLUoxetine HCL 20 MG/5 ML 120ML BTL PO SCH (08:00)
[2021-12-22] MEDS: PROPRANOLOL HCL 10 MG TAB PO SCH ×3 (08:01→20:59)
[2021-12-22] MEDS: MULTI VIT W/MINERALS LIQUID 15 ML UDP PO SCH (08:01)
[2021-12-22] MEDS: OXANDROLONE 10 MG TABLET PO SCH (08:07)
[2021-12-22] MEDS: WHISKEY 1 DOSE PO SCH (08:09)
--- NOTE | 2021-12-22 08:15 | Critical Care Progress Note ---
Date of Service December 22, 2021 Assessment & Plan (1) Acute hypoxemic respiratory failure due to COVID-19: (2) COVID-19: (3) Lung fibrosis: (4) ARDS (adult respiratory distress syndrome): (5) Factor V Leiden carrier: (6) Bacteremia: Plan: Neuro: Continue to try and mobilize as tolerated. PT and OT in progress.Increase Prozac to 40 mg. Cardiovascular: Hypotension resolved. Off pressors now. oral midodrine: 5 mg 3 times daily Remains tachycardic, however improved continue propranolol, 10 mg three times daily, for anticatabolic effects and persistent tachycardia. Respiratory: Respiratory failure secondary to ARDS with significant fibrotic changes. Pneumomediastinum has resolved.Trach upsized to 8 cuffed Shiley, still some leak. Remains hypercarbic with very stiff lungs and poor compliance. May need evaluation for lung transplant at some point. Renal/lytes: Kidney function back to normal. Electrolyte replacement as needed. Try and keep on slight negative balance. He does have evidence of peripheral edema. - Continue free water via PEG tube: 200 mL every 4. : Prazosin DC'd. Discontinuing straight catheter as patient is on warfarin. Voiding spontaneously. ID: Coag negative staph in blood 3 out of 4 bottles. Stopped after 8 days vancomycin white count and fever curve are better. -Surveillance cultures negative., Off antibiotics Heme:History of factor V Leiden with acute DVT. On therapeutic Lovenox. Mild anemia Long-term anticoagulation with warfarin -Warfarin 10 mg GI:Continue tube feeding. Check prealbumin. On Protonix, adding minerals and zinc. Lactulose prn added due to starting iron as above. Endo: Glycemic control per protocol. Discussion with who elected to proceed with oxandrolone therapy for anticatabolic effects Continue 48-hour labs and continue to normalize patient with aggressive physical therapy. Stable for transfer to LTAC -- per CM possible today Admission and Anticipated Discharge Date Admission Date: November 03, 2021 Supervising Physician Co-Signing Physician Notes Agree with assessment and plan of resident physician aside for any additions/exceptions noted: Subjective: Patient denies any complaint. Appears comfortable on the ventilator. No significant events overnight per nursing. Patient with ventilatory dependent respiratory failure due to COVID-19 viral pneumonia. Will attempt pressure support today. He has evidence of fibrotic disease. Hopefully, he will continue to have improvement in his lung function over a period of time. We will increase tube feeds to a higher goal rate. Replace magnesium with potassium phosphate at this time. Will recheck mg and phos later this evening. Will discontinue oxandrolone. Holding warfarin as well given elevated INR. He does have a history of factor V Leiden deficiency and DVT. Lovenox on hold. LFTs checked today are stable. Will discontinue midodrine as he has been normotensive. Patient is essentially stable for LTAC placement. Constitutional: Frail appearing male laying in bed with tracheostomy in place. Eyes: Pupils are equal round and reactive to light. Conjunctivae are normal. Anicteric sclera. Ears nose, mouth and throat: EOMI. No obvious deformities. Neck: Tracheostomy in place. Respiratory: Coarse breath sounds bilaterally. Tachypnea. Cardiovascular: Regular rate and rhythm. No murmurs. No edema. Gastrointestinal: Normal bowel sounds, soft, nontender and nondistended. PEG tube in place. Musculoskeletal: No cyanosis. Patient is able to move all extremities. Skin: No rashes, warm dry and intact. Neurologic: No obvious focal neurological deficits seen. Psychiatric: Limited given the patient tracheostomy. He does not appear anxious and appears alert. Subjective No acute events overnight. Patient alert and following commands. Nods and smiles when told that we are hoping for LTAC today. Review of Systems Review of Systems: unable to fully review secondary to tracheostomy Physical Exam Physical Exam: General: Alert, following commands HEENT: Atraumatic, tracheostomy tube in place Cardiovascular: Tachycardic, regular rhythm. -mgr Respiratory: CTAB, -wrr Gastrointestinal: NTND, BS+x4 Musculoskeletal: No clubbing, no cyanosis. 1+ pitting edema BLE Skin: Warm and dry, no rashes or lesions Results & Data Results & Data ([facility]) Vital Signs (Past 12 Hours) Vital Signs Temp Pulse Resp BP Pulse Ox 12/22/21 05:00 105 H 35 H 137/77 93 12/22/21 04:00 37.3 C 101 H 38 H 140/73 89 L 12/22/21 03:05 101 H 38 H 95 12/22/21 03:00 117 H 22 117/65 100 12/22/21 02:00 102 H 23 136/76 93 12/22/21 01:00 97 H 38 H 132/70 93 12/22/21 00:00 37.2 C 100 H 38 H 130/74 94 12/21/21 23:20 97 H 12/21/21 23:00 101 H 4 L 135/67 95 12/21/21 22:45 95 H 32 H 96 12/21/21 22:00 97 H 16 112/61 92 12/21/21 21:00 95 H 31 H 107/62 95 12/21/21 20:23 96 H 31 H 96 Critical Care Results & Data Vital Signs (Past 12 Hours) Vital Signs Temp Pulse Resp BP Pulse Ox 12/22/21 05:00 105 H 35 H 137/77 93 12/22/21 04:00 37.3 C 101 H 38 H 140/73 89 L 12/22/21 03:05 101 H 38 H 95 12/22/21 03:00 117 H 22 117/65 100 12/22/21 02:00 102 H 23 136/76 93 12/22/21 01:00 97 H 38 H 132/70 93 12/22/21 00:00 37.2 C 100 H 38 H 130/74 94 12/21/21 23:20 97 H 12/21/21 23:00 101 H 4 L 135/67 95 12/21/21 22:45 95 H 32 H 96 12/21/21 22:00 97 H 16 112/61 92 12/21/21 21:00 95 H 31 H 107/62 95 12/21/21 20:23 96 H 31 H 96 Lab & Micro Results (Past 24 Hours) RBC 2.66 M/uL (4.7-6.1) L 12/22/21 WBC 7.54 K/uL (4.8-10.8) 12/22/21 Hgb 7.6 g/dL (14.0-18.0) L 12/22/21 Hct 26.2 % (42-52) L 12/22/21 MCV 98.5 fL (80-100) 12/22/21 MCH 28.6 pg (25-34) 12/22/21 MCHC 29.0 g/dL (32-36) L 12/22/21 RDW Standard Deviation 59.9 fL (36.4-46.3) H 12/22/21 RDW Coefficient of Variation 16.6 % (11.5-14.5) H 12/22/21 Plt Count 247 K/uL (130-400) 12/22/21 MPV 10.6 fL (7.4-10.4) H 12/22/21 Neutrophils (%) (Auto) 69.7 % 12/22/21 Lymphocytes (%) (Auto) 20.8 % 12/22/21 Monocytes # (Auto) 0.55 K/uL (0.11-0.59) 12/22/21 Eosinophils # (Auto) 0.15 K/uL (0-0.5) 12/22/21 Immature Granulocyte % (Auto) 0.1 % 12/22/21 Neutrophils # (Auto) 5.25 K/uL (1.4-6.5) 12/22/21 Lymphocytes # (Auto) 1.57 K/uL (1.2-3.4) 12/22/21 Monocytes # (Auto) 0.55 K/uL (0.11-0.59) 12/22/21 Eosinophils # (Auto) 0.15 K/uL (0-0.5) 12/22/21 Basophils # (Auto) 0.01 K/uL (0-0.2) 12/22/21 Immature Granulocyte # (Auto) 0.01 K/uL (0.00-0.02) 12/22/21 Stomatocytes 1+ 12/22/21 Na 144 mmol/L (136-145) 12/22/21 K 3.5 mmol/L (3.5-5.1) 12/22/21 Cl 96 mmol/L (98-107) L 12/22/21 CO2 41 mmol/L (21-32) H* 12/22/21 Anion Gap 7 (3-11) 12/22/21 BUN 24 mg/dl (6-23) H 12/22/21 Creatinine 0.72 mg/dl (0.6-1.4) 12/22/21 Estimated GFR ( Amer) 119.2 ml/min 12/22/21 Estimated GFR (Non-Af Amer) 102.8 ml/min 12/22/21 BUN/Creatinine Ratio 33.3 (10-20) H 12/22/21 Glu 90 mg/dl (70-99(Fasting)) 12/22/21 Ca 8.6 mg/dl (8.5-10.1) 12/22/21 Phosphorus Level 1.0 mg/dl (2.5-4.9) L* 12/22/21 Total Bilirubin 0.3 mg/dl (0.2-1.0) 12/22/21 Direct Bilirubin 0.0 mg/dl (0-0.2) 12/22/21 AST 18 U/L (13-39) 12/22/21 ALT 18 U/L (7-52) 12/22/21 Alkaline Phosphatase 44 U/L (34-104) 12/22/21 TP 6.8 gm/dl (6.0-8.3) 12/22/21 Albumin 3.3 gm/dl (3.4-5.0) L 12/22/21 Mg 1.6 mg/dl (1.7-2.4) L 12/22/21 04:49 12/22/21 Calcium Level 8.6 mg/dl (8.5-10.1) 12/22/21 04:49 12/22/21 Prothromb Time International Ratio 4.2 (0.9-1.1) H 12/22/21 04:49 12/22/21 Microbiology 12/07/21 10:36 Fungal Smear - Final Blood Fungal Culture - Preliminary No yeast or fungus isolated - Report 2, Additional report to follow. I & O Totals 24 Hours 12/21/21 12/22/21 12/23/21 06:59 06:59 06:59 Intake Total 0 / 0 755 / 755 Output Total 1949 754 / 754 Balance -1950 / -1950 Cumulative 11/03/21 14:22 thru 12/21/21 20:00 Intake Total 25191.764 Output Total 89834 Balance -1987.236 RT Ventilator Mngmt (Last Documented) Ventilator Ordered Settings Ventilator Support Mode Assist Control 12/22/21 04:00 Respiratory Rate 35 12/22/21 05:00 Ventilator Tidal Volume 480 12/22/21 04:00 Setting Minute Ventilation 12 12/22/21 03:05 Ventilator Positive Pressure 5 12/21/21 08:00 Support Setting Positive End Expiratory 5 12/22/21 04:00 Pressure Fraction of Inspired Oxygen 40 12/22/21 04:00 Peak Inspiratory Flow 48 12/21/21 16:14 Inspiratory Pressure 35 12/14/21 08:54 Machine Comment weaned to 45% 12/21/21 11:55 Ventilator - PT Measurements Respiratory Rate 35 Exhaled Tidal Volume 363 Minute Ventilation 12 Peak Inspiratory Airway 25 Pressure Plateau Pressure 14.1 Respiratory Cycle Inspiratory: 1:1.5 Expiratory Ratio Inspiratory Phase Time 0.8 End-Tidal CO2 20 Static Lung Compliance 44.18 Dynamic Lung Compliance 18.15 Normal Static Lung Compliance 45.00 Patient Measurements Comment leak on vent at 40% due to leak from trach Resident Activity Tracking Resident Involvement: Resident Care Provided Care Provided: Adult Hospital Medicine
--- NOTE | 2021-12-22 08:40 | Billing Data ---
Date of Service December 22, 2021 Coding Level of Care Code 13953 Subseq Hosp Care Lvl 2
--- NOTE | 2021-12-22 09:04 | Hospitalist Progress Note ---
Date of Service December 22, 2021 Assessment & Plan (1) Acute respiratory failure: (2) ARDS (adult respiratory distress syndrome): (3) 2019 novel coronavirus-infected pneumonia (NCIP): Plan: Respiratory failure 2/2 ARDS with fibrotic changes. Pneumomediastinum has resolved. Intubated on 11/20/21 --> 11/26/2021 tracheostomy status, on mechanical ventilation being managed per critical care team. Remains on ventilator in ICU, wean as tolerated. Currently back on the ventilator. Completed dexamethasone. 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 Now afebrile nontoxic- appearing. 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 Cont full dose Lovenox. Plan: Plan for LTAC. DNR/DNI ROS-open no history today Physical Exam Gen-NAD, febrile, +Trach, tachycardic, better than yesterday Head-NCAT, EOMI, PERRLA, Anicteric Sclera, No Posterior Pharyngeal Erythema Neck-Supple, No JVD, No Thyromegaly, No Masses, No LAD, No Bruits, positive trach Lungs-+ Rhonchi, No Wheezing, No Crepitus Chest-Tachy No S4, +S1, +S2, No S3, No Murmurs, No Rubs, No Gallops, No Ectopy Abdomen-Soft, Bowel Sounds Present, Non Tender, Non Distended, No Hepatomegaly, No Splenomegaly, No Palpable Masses, No Rebound, No Rigidity, No Guarding Musculoskeletal-Full Range of Motion Bilaterally, No CVAT Extremities-No Cyanosis, No Clubbing, No Edema Nuero-Cranial Nerves II-XII grossly intact, Motor WNL, DTRs WNL, Strength WNL, Non Focal Psych-calm today Admission and Anticipated Discharge Date Admission Date: November 03, 2021 Subjective No acute events overnight. Patient alert and following commands. Nods and smiles. Hoping for LTAC today. Results & Data Results & Data ([facility]) Vital Signs (Past 12 Hours) Vital Signs Temp Pulse Resp BP Pulse Ox 12/22/21 08:00 37.1 C 110 H 12 93 12/22/21 07:34 108 H 36 H 91 12/22/21 07:00 109 H 14 96 12/22/21 05:00 105 H 35 H 137/77 93 12/22/21 04:00 37.3 C 101 H 38 H 140/73 89 L 12/22/21 03:05 101 H 38 H 95 12/22/21 03:00 117 H 22 117/65 100 12/22/21 02:00 102 H 23 136/76 93 12/22/21 01:00 97 H 38 H 132/70 93 12/22/21 00:00 37.2 C 100 H 38 H 130/74 94 12/21/21 23:20 97 H 12/21/21 23:00 101 H 4 L 135/67 95 12/21/21 22:45 95 H 32 H 96 12/21/21 22:00 97 H 16 112/61 92 Laboratory Results Reviewed
[2021-12-22] MEDS ORDERED: POTASSIUM PHOS 3 MMOL/1 ML INFUSION IV STA (10:07)
[2021-12-22] MEDS ORDERED: POTASSIUM PHOSPHATE 30 MMOL in SODIUM CHLORIDE 0.9% 500 ML IV ONE (10:30)
[2021-12-22] MEDS: MAGNESIUM SULFATE / D5W 1 GM/100 ML BAG IV SCH ×3 (10:36→15:23)
[2021-12-22 11:07] LABS: Albumin Level 3.3 gm/dl (3.4-5.0); Bilirubin,Total 0.3 mg/dl (0.2-1.0); Total Protein 6.8 gm/dl (6.0-8.3)
--- NOTE | 2021-12-22 11:39 | Billing Data ---
Date of Service December 22, 2021 Coding Level of Care Code 75760 Subseq Hosp Care Lvl 3
[2021-12-22] MEDS: PEPTAMEN 1.5 CAL 1,000 ML BAG PEG SCH (15:26)
[2021-12-22 18:56] LABS: BUN Creatinine Ratio 29.2 (10-20); Calcium 8.4 mg/dl (8.5-10.1); Creatinine Clr Calc Pharmacy 108.2 ml/min; Est GFR (African American) 119.2 ml/min; Est GFR (Non-African American) 102.8 ml/min; Potassium 3.6 mmol/L (3.5-5.1)
[2021-12-22] MEDS: ICU ELECTROLYTE REPLACEMENT PROTOCOL SCH (19:27)
[2021-12-22] MEDS: POTASSIUM CHLORIDE / WTR 10 MEQ/100 ML PLCT IV SCH ×4 (19:54→23:01)
[2021-12-22 20:14] LABS: Magnesium 2.4 mg/dl (1.7-2.4)
[2021-12-23] MEDS: TUBE FEEDING WATER FLUSH PEG SCH ×6 (04:16→23:51)
[2021-12-23 05:11] LABS: INR 3.2 (0.9-1.1); Prothrombin Time 29.2 Seconds (9.0-12.0)
[2021-12-23] MEDS: INSULIN HUMAN REGULAR SC SCH ×4 (06:21→23:50)
[2021-12-23 07:09] LABS: BUN Creatinine Ratio 26.1 (10-20); Calcium 8.3 mg/dl (8.5-10.1); Creatinine Clr Calc Pharmacy 112.9 ml/min; Est GFR (African American) 121.3 ml/min; Est GFR (Non-African American) 104.6 ml/min; Potassium 3.8 mmol/L (3.5-5.1)
[2021-12-23] MEDS: ICU ELECTROLYTE REPLACEMENT PROTOCOL SCH ×2 (07:11→17:02)
--- NOTE | 2021-12-23 07:37 | Critical Care Progress Note ---
Date of Service December 23, 2021 Assessment & Plan (1) Acute hypoxemic respiratory failure due to COVID-19: (2) COVID-19: (3) Lung fibrosis: (4) ARDS (adult respiratory distress syndrome): (5) Factor V Leiden carrier: (6) Bacteremia: Plan: Neuro: Continue to try and mobilize as tolerated. PT and OT in progress.Increase Prozac to 40 mg. Cardiovascular: Hypotension resolved. Off pressors now. Remains tachycardic, however improved. Continue propranolol, 10 mg three times daily, for anticatabolic effects and persistent tachycardia. -Continue iron and vitamin C for anemia. Respiratory: Respiratory failure secondary to ARDS with significant fibrotic changes. Pneumomediastinum has resolved.Trach upsized to 8 cuffed Shiley, still some leak. Remains hypercarbic with very stiff lungs and poor compliance. May need evaluation for lung transplant at some point. -The phone Bivona cuffed has been ordered to hopefully facilitate patient comfort with mechanical ventilation -Patient has remained stable on 60% FiO2 continue current vent settings Renal/lytes: Kidney function back to normal. Electrolyte replacement as needed. Try and keep on slight negative balance. He does have evidence of peripheral edema. - Continue free water via PEG tube: 200 mL every 4. : Prazosin DC'd. Discontinuing straight catheter as patient is on warfarin. Voiding spontaneously. ID: Coag negative staph in blood 3 out of 4 bottles. Stopped after 8 days vancomycin white count and fever curve are better. -Surveillance cultures negative., Off antibiotics Heme:History of factor V Leiden with acute DVT. On therapeutic Lovenox. Mild anemia -Iron and vitamin C Long-term anticoagulation with warfarin -Slightly supratherapeutic today but likely he'll continue to decrease as he's off oxandrolone today. Give warfarin 7.5mg today. GI:Continue tube feeding. Check prealbumin. On Protonix, adding minerals and zinc. Lactulose prn added due to starting iron as above. Endo: Glycemic control per protocol. Oxandrolone discontinued Continue 48-hour labs and continue to normalize patient with aggressive physical therapy. Stable for transfer to LTAC -- CM assisting Admission and Anticipated Discharge Date Admission Date: November 03, 2021 Supervising Physician Co-Signing Physician Notes Agree with assessment and plan of resident physician aside for any additions/exceptions noted: Subjective: Patient denies any complaint. Appears comfortable on the ventilator. No significant events overnight per nursing. Patient with ventilatory dependent respiratory failure due to COVID-19 viral pneumonia. He has evidence of fibrotic disease. Hopefully, he will continue to have improvement in his lung function over a period of time. Continue tube feeds. Replacing electrolytes. Continue warfarin. He does have a history of factor V Leiden deficiency and DVT. Will discontinue propranolol and start low dose metoprolol. Patient is essentially stable for LTAC placement. Constitutional: Frail appearing male laying in bed with tracheostomy in place. Eyes: Pupils are equal round and reactive to light. Conjunctivae are normal. Anicteric sclera. Ears nose, mouth and throat: EOMI. No obvious deformities. Neck: Tracheostomy in place. Respiratory: Coarse breath sounds bilaterally. Tachypnea. Cardiovascular: Regular rate and rhythm. No murmurs. No edema. Gastrointestinal: Normal bowel sounds, soft, nontender and nondistended. PEG tube in place. Musculoskeletal: No cyanosis. Patient is able to move all extremities. Skin: No rashes, warm dry and intact. Neurologic: No obvious focal neurological deficits seen. Psychiatric: Limited given the patient tracheostomy. He does not appear anxious and appears alert. Subjective No acute events overnight. Remains mechanically ventilated without issues. Review of Systems Review of Systems: unable to fully review secondary to tracheostomy Physical Exam Physical Exam: General: Alert, following commands HEENT: Atraumatic, tracheostomy tube in place Cardiovascular: Tachycardic, regular rhythm. -mgr Respiratory: CTAB, -wrr Gastrointestinal: NTND, BS+x4 Musculoskeletal: No clubbing, no cyanosis. 1+ pitting edema BLE Skin: Warm and dry, no rashes or lesions Results & Data Results & Data ([facility]) Vital Signs (Past 12 Hours) Vital Signs Temp Pulse Resp BP Pulse Ox 12/23/21 06:00 37 C 102 H 19 163/85 H 92 12/23/21 05:00 93 H 28 H 171/95 H 93 12/23/21 04:00 105 H 33 H 168/99 H 92 12/23/21 03:37 95 H 33 H 90 12/23/21 03:00 88 25 H 154/85 H 93 12/23/21 02:00 101 H 36 H 149/84 H 91 12/23/21 01:00 92 H 35 H 134/99 94 12/23/21 00:00 87 27 H 141/81 H 91 12/22/21 23:23 84 29 H 93 12/22/21 23:00 91 H 33 H 143/76 H 91 12/22/21 22:00 26 H 146/76 H 93 12/22/21 21:26 28 H 127/86 95 12/22/21 21:13 93 H 32 H 94 12/22/21 21:00 25 H 127/86 94 12/22/21 20:00 37 C 95 H 3 L 94 Critical Care Results & Data Vital Signs (Past 12 Hours) Vital Signs Temp Pulse Pulse Resp BP BP Pulse Ox 12/23/21 08:00 101 H 12/23/21 07:59 101 H 25 H 145/83 H 93 12/23/21 07:20 102 H 33 H 94 12/23/21 06:00 37 C 102 H 19 163/85 H 92 12/23/21 05:00 93 H 28 H 171/95 H 93 12/23/21 04:00 105 H 33 H 168/99 H 92 12/23/21 03:37 95 H 33 H 90 12/23/21 03:00 88 25 H 154/85 H 93 12/23/21 02:00 101 H 36 H 149/84 H 91 12/23/21 01:00 92 H 35 H 134/99 94 12/23/21 00:00 87 27 H 141/81 H 91 12/22/21 23:23 84 29 H 93 12/22/21 23:00 91 H 33 H 143/76 H 91 Lab & Micro Results (Past 24 Hours) No Data to Display Na 142 mmol/L (136-145) 12/23/21 K 3.8 mmol/L (3.5-5.1) 12/23/21 Cl 98 mmol/L (98-107) 12/23/21 CO2 40 mmol/L (21-32) H 12/23/21 Anion Gap 4 (3-11) 12/23/21 BUN 18 mg/dl (6-23) 12/23/21 Creatinine 0.69 mg/dl (0.6-1.4) 12/23/21 Estimated GFR ( Amer) 121.3 ml/min 12/23/21 Estimated GFR (Non-Af Amer) 104.6 ml/min 12/23/21 BUN/Creatinine Ratio 26.1 (10-20) H 12/23/21 Glu 125 mg/dl (70-99(Fasting)) H 12/23/21 Ca 8.3 mg/dl (8.5-10.1) L 12/23/21 Phosphorus Level 2.0 mg/dl (2.5-4.9) L 12/23/21 Mg 2.0 mg/dl (1.7-2.4) 12/23/21 06:02 12/23/21 Calcium Level 8.3 mg/dl (8.5-10.1) L 12/23/21 06:02 12/23/21 Prothromb Time International Ratio 3.2 (0.9-1.1) H 12/23/21 04:54 12/23/21 I & O Totals 24 Hours 12/22/21 12/23/21 12/24/21 06:59 06:59 06:59 Intake Total 755 / 755 1328.333 / 1328.333 Output Total 754 / 754 1725 / 1725 700 / 700 Balance -396.667 / -396.667 -700 / -700 Cumulative 11/03/21 14:22 thru 12/23/21 09:00 Intake Total 11119.097 Output Total 05706 Balance -3083.903 RT Ventilator Mngmt (Last Documented) Ventilator Ordered Settings Ventilator Support Mode Assist Control 12/23/21 08:00 Respiratory Rate 25 12/23/21 07:59 Ventilator Tidal Volume 480 12/23/21 08:00 Setting Minute Ventilation 11.6 12/23/21 07 :20 Ventilator Positive Pressure 5 12/21/21 08:00 Support Setting Positive End Expiratory 5 12/23/21 08:00 Pressure Fraction of Inspired Oxygen 40 12/23/21 08:00 Peak Inspiratory Flow 48 12/21/21 16:14 Inspiratory Pressure 35 12/14/21 08:54 Machine Comment weaned to 45% 12/21/21 11:55 Ventilator - PT Measurements Respiratory Rate 25 Exhaled Tidal Volume 383 Minute Ventilation 11.6 Peak Inspiratory Airway 22 Pressure Plateau Pressure 14 Respiratory Cycle Inspiratory: 1:3.1 Expiratory Ratio Inspiratory Phase Time 0.80 End-Tidal CO2 35 Static Lung Compliance 42.56 Dynamic Lung Compliance 22.53 Normal Static Lung Compliance 46.00 Patient Measurements Comment leak on vent at 40% due to leak from trach Resident Activity Tracking Resident Involvement: Resident Care Provided Care Provided: Adult Hospital Medicine
[2021-12-23] MEDS: MAGNESIUM OXIDE 400 MG TAB NG SCH ×2 (07:56→11:23)
[2021-12-23] MEDS: POT PHOSPHATE MONOBASIC W/ SOD TAB NG SCH ×3 (07:56→16:03)
[2021-12-23] MEDS: POTASSIUM CHLORIDE 20 MEQ/15 ML UDC NG SCH ×2 (07:56→11:23)
[2021-12-23] MEDS: DOCUSATE SODIUM SYRUP 100 MG/10 ML UDC PO SCH ×2 (08:00→19:40)
[2021-12-23] MEDS: PROPRANOLOL HCL 10 MG TAB PO SCH (08:00)
[2021-12-23] MEDS: LANSOPRAZOLE 30 MG SOLTAB NG SCH (08:00)
[2021-12-23] MEDS: ATORVASTATIN 20 MG TAB PO SCH (08:01)
[2021-12-23] MEDS: MULTI VIT W/MINERALS LIQUID 15 ML UDP PO SCH (08:01)
[2021-12-23] MEDS: FERROUS SULFATE 325 MG/7.4 ML UDP PO SCH (08:01)
[2021-12-23] MEDS: FLUoxetine HCL 20 MG/5 ML 120ML BTL PO SCH (08:01)
--- NOTE | 2021-12-23 09:28 | Hospitalist Progress Note ---
Date of Service December 23, 2021 Assessment & Plan (1) Acute respiratory failure: (2) ARDS (adult respiratory distress syndrome): (3) 2019 novel coronavirus-infected pneumonia (NCIP): Plan: Respiratory failure 2/2 ARDS with fibrotic changes. Pneumomediastinum has resolved. Intubated on 11/20/21 --> 11/26/2021 tracheostomy status, on mechanical ventilation being managed per critical care team. Remains on ventilator in ICU, wean as tolerated. Currently back on the ventilator. Completed dexamethasone. LTAC soon (4) Bacteremia: Plan: Blood cultures growing [employer]. Vanc stopped after 8 days. Resolved. 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 Cont full dose Lovenox. Plan: Plan for LTAC. DNR/DNI ROS-feeling a little better each day, denies pain, denies headache, nausea, vomiting, chest pain, appetite okay, no pain currently Physical Exam Gen-NAD, afebrile, +Trach, tachycardic and tachypneic, looks better than yesterday Head-NCAT, EOMI, PERRLA, Anicteric Sclera, No Posterior Pharyngeal Erythema Neck-Supple, No JVD, No Thyromegaly, No Masses, No LAD, No Bruits, positive trach Lungs-+ Rhonchi, No Wheezing, No Crepitus Chest-Tachy No S4, +S1, +S2, No S3, No Murmurs, No Rubs, No Gallops, No Ectopy Abdomen-Soft, Bowel Sounds Present, Non Tender, Non Distended, No Hepatomegaly, No Splenomegaly, No Palpable Masses, No Rebound, No Rigidity, No Guarding Musculoskeletal-Full Range of Motion Bilaterally, No CVAT Extremities-No Cyanosis, No Clubbing, No Edema Nuero-Cranial Nerves II-XII grossly intact, Motor WNL, DTRs WNL, Strength WNL, Non Focal Psych-calm today Admission and Anticipated Discharge Date Admission Date: November 03, 2021 Subjective No acute events overnight. Remains ventilated. Results & Data Results & Data ([facility]) Vital Signs (Past 12 Hours) Vital Signs Temp Pulse Pulse Resp BP BP Pulse Ox 12/23/21 08:00 101 H 12/23/21 07:59 101 H 25 H 145/83 H 93 12/23/21 07:20 102 H 33 H 94 12/23/21 06:00 37 C 102 H 19 163/85 H 92 12/23/21 05:00 93 H 28 H 171/95 H 93 12/23/21 04:00 105 H 33 H 168/99 H 92 12/23/21 03:37 95 H 33 H 90 12/23/21 03:00 88 25 H 154/85 H 93 12/23/21 02:00 101 H 36 H 149/84 H 91 12/23/21 01:00 92 H 35 H 134/99 94 12/23/21 00:00 87 27 H 141/81 H 91 12/22/21 23:23 84 29 H 93 12/22/21 23:00 91 H 33 H 143/76 H 91 12/22/21 22:00 26 H 146/76 H 93 Laboratory Results Reviewed
[2021-12-23] MEDS ORDERED: WARFARIN SOD 7.5 MG TAB PO ONE (11:00)
[2021-12-23] MEDS: PEPTAMEN 1.5 CAL 1,000 ML BAG PEG SCH (11:10)
--- NOTE | 2021-12-23 11:12 | Pharmacy Report ---
Pharmacy Glycemic Sign Off Nt - Date of Service December 23, 2021 - Assessment & Plan ASSESSMENT: * BSG's have ranged 104-131 mg/dL over the last 24 hours * Only 3 units of insulin total required - no basal. * OK to sign off per Dr. Riggs PLAN FOR INPATIENT GLYCEMIC CONTROL: No changes needed to current regimen. * No basal insulin * Continue NovoLog per scale ACHS/Q6hrs while NPO * Goal range = 110 140 mg/dl * CF = 40 mg/dl/unit * CR = 1 unit for ever 20 g CHO consumed * Pharmacy is signing off of glycemic consult and will no longer be making adjustments to inpatient regimen. Please feel free to re-consult if needed. Thank you.
--- NOTE | 2021-12-23 13:57 | Billing Data ---
Date of Service December 23, 2021 Coding Level of Care Code 83163 Subseq Hosp Care Lvl 3
--- NOTE | 2021-12-23 14:14 | Billing Data ---
Date of Service December 23, 2021 Coding Level of Care Code 49545 Subseq Hosp Care Lvl 3
[2021-12-23] MEDS: METOPROLOL TARTRATE 25 MG TAB PO SCH (20:03)
[2021-12-24] MEDS: TUBE FEEDING WATER FLUSH PEG SCH ×6 (03:54→23:48)
[2021-12-24] MEDS: INSULIN HUMAN REGULAR SC SCH ×5 (05:08→23:55)
[2021-12-24] MEDS: PEPTAMEN 1.5 CAL 1,000 ML BAG PEG SCH (05:09)
[2021-12-24 05:26] LABS: INR 2.3 (0.9-1.1); Prothrombin Time 21.5 Seconds (9.0-12.0)
[2021-12-24 05:41] LABS: BUN Creatinine Ratio 26.6 (10-20); Calcium 8.2 mg/dl (8.5-10.1); Creatinine Clr Calc Pharmacy 121.7 ml/min; Est GFR (African American) 125.1 ml/min; Est GFR (Non-African American) 107.9 ml/min; Magnesium 1.7 mg/dl (1.7-2.4); Phosphorus 2.5 mg/dl (2.5-4.9); Potassium 3.8 mmol/L (3.5-5.1)
[2021-12-24] MEDS: ICU ELECTROLYTE REPLACEMENT PROTOCOL SCH ×2 (06:35→18:18)
--- NOTE | 2021-12-24 07:23 | Critical Care Progress Note ---
Date of Service December 24, 2021 Assessment & Plan (1) Acute hypoxemic respiratory failure due to COVID-19: (2) COVID-19: (3) Lung fibrosis: (4) ARDS (adult respiratory distress syndrome): (5) Factor V Leiden carrier: (6) Bacteremia: Plan: Neuro: Continue to try and mobilize as tolerated. PT and OT in progress.Increase Prozac to 40 mg. Cardiovascular: Hypotension resolved. Off pressors now. oral midodrine: 5 mg TID Remains tachycardic, however improved. Continue propranolol, 10 mg three times daily, for anticatabolic effects and persistent tachycardia. -Continue iron and vitamin C for anemia. Respiratory: Respiratory failure secondary to ARDS with significant fibrotic changes. Pneumomediastinum has resolved.Trach upsized to 8 cuffed Shiley, still some leak. Remains hypercarbic with very stiff lungs and poor compliance. May need evaluation for lung transplant at some point. -The phone Bivona cuffed has been ordered to hopefully facilitate patient comfort with mechanical ventilation -Patient has remained stable on 60% FiO2 continue current vent settings Renal/lytes: Kidney function back to normal. Electrolyte replacement as needed. Try and keep on slight negative balance. He does have evidence of per ipheral edema. - Continue free water via PEG tube: 200 mL every 4. : Prazosin DC'd. Discontinuing straight catheter as patient is on warfarin. Voiding spontaneously. ID: Coag negative staph in blood 3 out of 4 bottles. Stopped after 8 days vancomycin white count and fever curve are better. -Surveillance cultures negative., Off antibiotics Heme:History of factor V Leiden with acute DVT. On therapeutic Lovenox. Mild anemia -Iron and vitamin C Long-term anticoagulation with warfarin -Subtherapeutic today. Give warfarin 7.5mg today again. GI:Continue tube feeding. Check prealbumin. On Protonix, adding minerals and zinc. Lactulose prn added due to starting iron as above. Endo: Glycemic control per protocol. Oxandrolone discontinued Continue 48-hour labs and continue to normalize patient with aggressive physical therapy. Stable for transfer to LTAC -- per CM likely today Admission and Anticipated Discharge Date Admission Date: November 03, 2021 Supervising Physician Co-Signing Physician Notes Agree with assessment and plan of resident physician aside for any additions/exceptions noted: Subjective: Unfortunately patient with large cuff leak and did not tolerate trouble vent. Unable to transfer today to LTAC. Patient with ventilatory dependent respiratory failure due to COVID-19 viral pneumonia. He has evidence of fibrotic disease. Hopefully, he will continue to have improvement in his lung function over a period of time. Continue tube feeds. Replacing electrolytes. Continue warfarin. He does have a history of factor V Leiden deficiency and DVT. Continue metoprolol. Will consult ENT for evaluation of the tracheostomy and to evaluate the cuff leak. We have tried multiple different tracts without significant improvement in the cuff leak. Will obtain chest x-ray today. updated at bedside. Constitutional: Frail appearing male laying in bed with tracheostomy in place. Eyes: Pupils are equal round and reactive to light. Conjunctivae are normal. Anicteric sclera. Ears nose, mouth and throat: EOMI. No obvious deformities. Neck: Tracheostomy in place. Respiratory: Coarse breath sounds bilaterally. Tachypnea. Cardiovascular: Regular rate and rhythm. No murmurs. No edema. Gastrointestinal: Normal bowel sounds, soft, nontender and nondistended. PEG tube in place. Musculoskeletal: No cyanosis. Patient is able to move all extremities. Skin: No rashes, warm dry and intact. Neurologic: No obvious focal neurological deficits seen. Psychiatric: Appears mildly anxious. Subjective No acute events overnight. Nods when asked if he is doing well. Informed we are waiting on insurance to authorize LTAC and nods again. Shakes head when asked if he needs anything or is in pain. Review of Systems Review of Systems: Limited due to trach Physical Exam Physical Exam: General: Alert, following commands HEENT: Atraumatic, tracheostomy tube in place Cardiovascular: Tachycardic, regular rhythm. -mgr Respiratory: CTAB, -wrr Gastrointestinal: NTND, BS+x4 Musculoskeletal: No clubbing, no cyanosis. 1+ pitting edema BLE Skin: Warm and dry, no rashes or lesions Results & Data Results & Data ([facility]) Vital Signs (Past 12 Hours) Vital Signs Temp Pulse Resp BP Pulse Ox 12/24/21 06:00 97 H 26 H 155/78 H 92 12/24/21 05:30 96 H 26 H 93 12/24/21 05:00 92 H 26 H 151/78 H 94 12/24/21 04:30 92 H 26 H 94 12/24/21 04:10 94 H 28 H 93 12/24/21 04:00 94 H 29 H 148/77 H 93 12/24/21 03:30 87 29 H 92 12/24/21 03:00 37.1 C 87 29 H 138/83 93 12/24/21 02:30 37.1 C 99 H 36 H 93 12/24/21 02:00 106 H 30 H 137/72 95 12/24/21 01:30 107 H 28 H 93 12/24/21 01:00 101 H 30 H 141/74 H 94 12/24/21 00:30 100 H 32 H 93 12/24/21 00:17 101 H 12/24/21 00:00 36.8 C 95 H 23 133/69 95 12/23/21 23:30 91 H 26 H 93 12/23/21 23:00 86 24 140/70 94 12/23/21 22:51 92 H 35 H 91 12/23/21 22:00 104 H 34 H 146/85 H 86 L 12/23/21 21:30 90 29 H 89 L 12/23/21 21:00 95 H 27 H 154/91 H 90 12/23/21 20:30 83 23 87 L 12/23/21 20:00 37.1 C 101 H 32 H 155/99 H 94 12/23/21 19:30 115 H 42 H 93 12/23/21 19:26 106 H 29 H 96 Critical Care Results & Data Vital Signs (Past 12 Hours) Vital Signs Temp Pulse Resp BP Pulse Ox 12/24/21 06:00 97 H 26 H 155/78 H 92 12/24/21 05:30 96 H 26 H 93 12/24/21 05:00 92 H 26 H 151/78 H 94 12/24/21 04:30 92 H 26 H 94 12/24/21 04:10 94 H 28 H 93 12/24/21 04:00 94 H 29 H 148/77 H 93 12/24/21 03:30 87 29 H 92 12/24/21 03:00 37.1 C 87 29 H 138/83 93 12/24/21 02:30 37.1 C 99 H 36 H 93 12/24/21 02:00 106 H 30 H 137/72 95 12/24/21 01:30 107 H 28 H 93 12/24/21 01:00 101 H 30 H 141/74 H 94 12/24/21 00:30 100 H 32 H 93 12/24/21 00:17 101 H 12/24/21 00:00 36.8 C 95 H 23 133/69 95 12/23/21 23:30 91 H 26 H 93 12/23/21 23:00 86 24 140/70 94 12/23/21 22:51 92 H 35 H 91 12/23/21 22:00 104 H 34 H 146/85 H 86 L 12/23/21 21:30 90 29 H 89 L 12/23/21 21:00 95 H 27 H 154/91 H 90 12/23/21 20:30 83 23 87 L 12/23/21 20:00 37.1 C 101 H 32 H 155/99 H 94 12/23/21 19:30 115 H 42 H 93 12/23/21 19:26 106 H 29 H 96 Lab & Micro Results (Past 24 Hours) No Data to Display Na 140 mmol/L (136-145) 12/24/21 K 3.8 mmol/L (3.5-5.1) 12/24/21 Cl 99 mmol/L (98-107) 12/24/21 CO2 38 mmol/L (21-32) H 12/24/21 Anion Gap 3 (3-11) 12/24/21 BUN 17 mg/dl (6-23) 12/24/21 Creatinine 0.64 mg/dl (0.6-1.4) 12/24/21 Estimated GFR ( Amer) 125.1 ml/min 12/24/21 Estimated GFR (Non-Af Amer) 107.9 ml/min 12/24/21 BUN/Creatinine Ratio 26.6 (10-20) H 12/24/21 Glu 130 mg/dl (70-99(Fasting)) H 12/24/21 Ca 8.2 mg/dl (8.5-10.1) L 12/24/21 Phosphorus Level 2.5 mg/dl (2.5-4.9) 12/24/21 Mg 1.7 mg/dl (1.7-2.4) 12/24/21 04:53 12/24/21 Calcium Level 8.2 mg/dl (8.5-10.1) L 12/24/21 04:53 12/24/21 Prothromb Time International Ratio 2.3 (0.9-1.1) H 12/24/21 04:53 12/24/21 I & O Totals 24 Hours 12/23/21 12/24/21 12/25/21 06:59 06:59 06:59 Intake Total 1328.333 / 0601.988 3586 / 1400 Output Total 1725 / 1725 1251 / 1251 Balance -396.667 / -396.667 149 / 149 Cumulative 11/03/21 14:22 thru 12/24/21 06:00 Intake Total 29176.097 Output Total 19272 Balance -2234.903 RT Ventilator Mngmt (Last Documented) Ventilator Ordered Settings Ventilator Support Mode Assist Control 12/24/21 04:10 Respiratory Rate 26 12/24/21 06:00 Ventilator Tidal Volume 480 12/24/21 04:10 Setting Minute Ventilation 12.2 12/24/21 04:10 Ventilator Positive Pressure 5 12/24/21 00:00 Support Setting Positive End Expiratory 5 12/24/21 04:10 Pressure Fraction of Inspired Oxygen 40 12/24/21 04:10 Peak Inspiratory Flow 48 12/21/21 16:14 Inspiratory Pressure 35 12/14/21 08:54 Machine Comment weaned to 45% 12/21/21 11:55 Ventilator - PT Measurements Respiratory Rate 26 Exhaled Tidal Volume 457 Minute Ventilation 12.2 Peak Inspiratory Airway 25 Pressure Plateau Pressure 13.4 Respiratory Cycle Inspiratory: 1:1.9 Expiratory Ratio Inspiratory Phase Time 0.80 End-Tidal CO2 10 Static Lung Compliance 47.74 Dynamic Lung Compliance 22.85 Normal Static Lung Compliance 46.00 Patient Measurements Comment Patient coughed out a moderate amount of thick, white secretions while off vent for IC change Resident Activity Tracking Resident Involvement: Resident Care Provided Care Provided: Adult Hospital Medicine
[2021-12-24] MEDS: MAGNESIUM SULFATE / D5W 1 GM/100 ML BAG IV SCH ×4 (08:23→16:36)
[2021-12-24] MEDS: POTASSIUM CHLORIDE 20 MEQ/15 ML UDC NG SCH ×2 (08:23→10:46)
[2021-12-24] MEDS: POT PHOSPHATE MONOBASIC W/ SOD TAB NG SCH ×3 (08:23→16:33)
[2021-12-24] MEDS: ATORVASTATIN 20 MG TAB PO SCH (08:24)
[2021-12-24] MEDS: LANSOPRAZOLE 30 MG SOLTAB NG SCH (08:24)
[2021-12-24] MEDS: DOCUSATE SODIUM SYRUP 100 MG/10 ML UDC PO SCH ×2 (08:24→20:08)
[2021-12-24] MEDS: FERROUS SULFATE 325 MG/7.4 ML UDP PO SCH (08:24)
[2021-12-24] MEDS: METOPROLOL TARTRATE 25 MG TAB PO SCH ×2 (08:25→20:37)
[2021-12-24] MEDS: FLUoxetine HCL 20 MG/5 ML 120ML BTL PO SCH (08:25)
[2021-12-24] MEDS ORDERED: WARFARIN SOD 7.5 MG TAB PO SCH ×2 (10:30→16:00)
--- NOTE | 2021-12-24 11:17 | Discharge Summary ---
Date of Service December 24, 2021 Admission HPI Per Admitting Provider History obtained from patient and records. Medical history significant for hypercoagulable state (factor V Leiden mutation, recurrent blood clots) on Coumadin, hyperlipidemia. Patient has not been well the last 11 days. Nausea vomiting watery diarrhea symptoms without abdominal pain. Poor appetite. Nonproductive cough. No chest pain, no S OB. Transient headache symptoms. Patient has not received COVID-19 vaccination. Possible sick contacts at work. Outpatient COVID-19 test from last week was positive. Other family members tested positive as well. Patient seen at the ER yesterday. Abdominal x-ray did not show bowel obstruction. Chest x-ray showed viral pneumonia. Patient sent home. Worsening weakness, shortness of breath on exertion at home without chest pain. Patient returned to the ER. O2 sats 80s on room air at some point during ER stay. IV Decadron given at the ER. 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 Discharge Data Allergies Allergy/AdvReac Type Severity Reaction Status Date / Time Sulfa (Sulfonamide Allergy Intermediate "tongue Verified 11/03/21 19:25 Antibiotics) turned black" Consultations 11/03/21 19:53 ED Decision to Admit Stat 11/19/21 16:23 Consult Pulmonology Routine 12/09/21 11:37 Consult Gastroenterology Routine Procedures Performed Operation Date: 12/11/21 16:30 Actual Procedures p EGD Gastric Tube Placement - Tony Camacho Case, DO Ordered Studies 11/06/21 20:16 US venous doppler LE LT Urgent 11/19/21 13:54 CT angio chest PE protocol Stat 11/20/21 14:39 US point of care ultrasound Urgent 11/29/21 10:32 CT abd pelvis IV con only Routine CT chest diagnostic w con Routine 11/30/21 14:38 CT head/brain wo con Stat 12/05/21 08:00 MR brain wo con Routine 12/07/21 04:16 CT angio chest PE protocol Urgent CT head/brain wo con Urgent Total Time Total Time Spent Total Time Spent (In Minutes): 50 Discharge Plan Discharge Items Patient Disposition: Transfer Acute Care Hospital Reason For Visit: COV POS 10/29/21/DIARRHEA/CAN'T EAT/WEAK/LOW O2 Discharge Diagnosis: Acute respiratory failure due to COVID-19 Tracheostomy and PEG status Factor V Leiden carrier with acute DVT Activity: As commented below Activity Comment: per PT/OT at LTAC facility. Non-emergency contact: Primary Care Provider and Oncology Technician Call non-emergency contact if: you have any medication questions, your symptoms worsen and your temperature is above 101 Follow-up/Referrals: PCP,NO [Primary Care Provider] - Diet: Other - See Diet Comment Diet Comment: PEG tube feed Addtl Attending Provider Instructions: Follow-up with your primary care physician within a week time. Follow-up with pulmonology in 1 to 2 weeks time. You are being discharged to LTAC on mechanical ventilation per pulmonology/critical care team's recommendation here, you will need close follow-up with pulmonology team. Because of acute DVT, you are started on warfarin, you will need PT/INR in 2 to 3 days upon discharge and close follow-up with Coumadin clinic for dose titration as an outpatient as appropriate. You are off of isolation for Covid. In the discharge plan [facility], patient's home medications are continued but he is actually getting the following medications while inpatient on the day of discharge. Warfarin dose to be determined, awaiting pharmacy. Pharmacy aware. Current Inpatient Medications Acetaminophen (Acetaminophen Susp 500 Mg/15.6 Ml Udp) 500 mg PO Q6H PRN PRN Reason: Pain or Fever Stop: 12/27/21 13:07 Last Admin: 12/20/21 08:45 Dose: 500 mg Documented by: Atorvastatin Calcium (Atorvastatin 20 Mg Tab) 20 mg PO DAILY [facility] Stop: 01/15/22 08:59 Last Admin: 12/24/21 08:24 Dose: 20 mg Documented by: Docusate Sodium (Docusate Sodium Syrup 100 Mg/10 Ml Udc) 100 mg PO BID [facility] Stop: 12/28/21 20:59 Last Admin: 12/24/21 08:24 Dose: 100 mg Documented by: Enteral Nutritional Formula (Peptamen 1.5 Sid 1,000 Ml Bag) 1,000 ml PEG CONT [facility]; Protocol Stop: 01/21/22 10:44 Last Admin: 12/24/21 05:09 Dose: 1,000 ml Documented by: Ferrous Sulfate (Ferrous Sulfate 325 Mg/7.4 Ml Udp) 325 mg PO QAM [facility] Stop: 01/17/22 08:59 Last Admin: 12/24/21 08:24 Dose: 325 mg Documented by: Fluoxetine HCl (Fluoxetine Hcl 20 Mg/5 Ml 120ml Btl) 40 mg PO DAILY [facility] Stop: 01/19/22 08:59 Last Admin: 12/24/21 08:25 Dose: 40 mg Documented by: Magnesium Sulfate/Dextrose (Magnesium Sulfate / D5w) 1 gm in 100 mls @ 50 mls/hr IV Q2H [facility] Stop: 12/24/21 14:44 Last Admin: 12/24/21 10:11 Dose: 50 mls/hr Documented by: Insulin Human Regular (Insulin Human Regular) 0 units SC Q6 [facility] Stop: 01/15/22 17:59 Last Admin: 12/24/21 05:08 Dose: 3 units Documented by: Lansoprazole (Lansoprazole 30 Mg Soltab) 30 mg NG QAM [facility] Stop: 01/12/22 08:59 Last Admin: 12/24/21 08:24 Dose: 30 mg Documented by: Levalbuterol HCl (Levalbuterol Hcl 1.25 Mg/3 Ml Neb) 1.25 mg NEB Q4R PRN; Protocol PRN Reason: Shortness Of Breath Or Wheezing Stop: 01/15/22 20:55 Last Admin: 12/16/21 21:23 Dose: 1.25 mg Documented by: Metoprolol Tartrate (Metoprolol Tartrate 25 Mg Tab) 12.5 mg PO BID [facility] Stop: 01/22/22 20:59 Last Admin: 12/24/21 08:25 Dose: 12.5 mg Documented by: Miscellaneous (Icu Electrolyte Replacement Protocol) 1 ea N/A BID@18 [facility]; Protocol Stop: 12/29/21 17:59 Last Admin: 12/24/21 06:35 Dose: 1 ea Documented by: Ondansetron HCl (Ondansetron Inj 2 Mg/Ml 2 Ml Vial) 4 mg IV Q6H PRN PRN Reason: Nausea And Vomiting Stop: 01/12/22 20:30 Last Admin: 12/19/21 19:55 Dose: 4 mg Documented by: Potassium Phosphate (Pot Phosphate Monobasic W/ Sod Tab) 1 tab NG Q4H [facility] Stop: 12/24/21 14:46 Last Admin: 12/24/21 10:46 Dose: 1 tab Documented by: Simethicone (Simethicone 40 Mg/0.6 Ml 30ml) 80 mg PO QID PRN PRN Reason: GI Upset Stop: 01/18/22 14:58 Last Admin: 12/20/21 17:44 Dose: 80 mg Documented by: Sterile Water (Tube Feeding Water Flush) 200 ml PEG Q4H [facility]AN[facility] Stop: 01/12/22 08:13 Last Admin: 12/24/21 08:23 Dose: 200 ml Documented by: Pending Studies at Discharge: No Stand-Alone Forms: [facility] Skilled Items Patient informed of condition?: Yes DNR: Yes Discharge Level of Care: Other Communicable Disease: No Discharge Prognosis: Improving Lines: None Urinary Catheter: No Medications and DC Order Prescriptions: Continued atorvastatin 20 mg tablet 20 mg PO DAILY RF: 0 warfarin 10 mg tablet 10 mg PO DAILY RF: 0 warfarin 1 mg tablet 2 mg PO 5XWK RF: 0 ondansetron 4 mg tablet,disintegrating 4 mg PO Q6H PRN (Reason: nausea and vomiting) Qty: 20 RF: 0 Krames/Other Patient Handouts: Prediabetes, 5 Steps for Eating Healthier Admission Data Admit Date/Time: 11/03/21 21:06 Attending Provider: Garrett Dover Admit Provider: Aramis Godinez Primary Care Provider: PCP,NO Other Providers: Dhruv Crockett ; Aramis Godinez ; Sabino Puente ; [facility] ; Garrett Dover ; Tony Donahue ; Sudha Sotelo ; Roselyn Tsang ; Monica,Johnie
--- NOTE | 2021-12-24 15:24 | Billing Data ---
Date of Service December 24, 2021 Coding Level of Care Code 39841 Subseq Hosp Care Lvl 3
--- NOTE | 2021-12-24 15:37 | Hospitalist Progress Note ---
Date of Service December 24, 2021 Assessment & Plan (1) Acute hypoxemic respiratory failure due to COVID-19: (2) DVT (deep venous thrombosis): Plan: (1) Acute respiratory failure: (2) ARDS (adult respiratory distress syndrome): (3) 2019 novel coronavirus-infected pneumonia (NCIP): Respiratory failure 2/2 ARDS with fibrotic changes. Pneumomediastinum has resolved.Intubated on 11/20/21 --> 11/26/2021 tracheostomy status, on mechanical ventilation being managed per critical care team. Remains on ventilator in ICU, wean as tolerated. Currently back on the ventilator. Completed dexamethasone. LTAC soon --> was discharged to LTAC today but could not tolerate transport ventilation and hence canceled. 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 Vanc stopped after 8 days. Resolved. (5) DVT (deep venous thrombosis): FVL carrier with chronic appearing DVT in LLE (seen on us 11/06/21). Patient on warfarin. Discussed with pharmacy, warfarin 10 mg on Sundays and 7.5 mg daily for the rest of the days. Continue to monitor PT/INR closely and adjust warfarin dose as appropriate. Plan for LTAC. DNR/DNI Admission and Anticipated Discharge Date Admission Date: November 03, 2021 Subjective Patient was lying in bed, alert and oriented x3, mechanically ventilated via tracheostomy tube, no new acute events overnight. Per RN patient is doing better. Patient was to get transferred to [facility] [LT[facility]] but later on I was notified that the transfer was canceled because the patient has anxiety and could not tolerate transport ventilation. Patient is being managed for acute respiratory failure secondary to pneumonia due to infection with COVID-19 virus. Patient is getting tube feed via PEG tube, denies any fever/chills/chest pain/palpitations/belly pain/other review of symptoms. Physical Exam Physical Exam: GENERAL: Alert and oriented x3. NAD, on MV via Trach (AC r = 26, 5cm, 450 ml, 40%) HEENT: No pallor, no icterus. Pupils equal, round and reactive to light. Oral mucosa moist. NECK: No JVD, no neck masses. Trach tube in situ w/ collar. HEART: S1 and S2 heard. Regular rate and rhythm. No murmur, no gallop. RESPIRATORY SYSTEM: Normal AP diameter. No accessory muscle use. No wheezing, no crackles w/ conducted breath sounds. ABDOMEN: Soft, bowel sounds present, nontender, no distention. PEG tube in situ. CENTRAL NERVOUS SYSTEM: No facial droop. Speech is clear. Obeys simple commands. Moves extremities. EXTREMITIES: No edema, no erythema seen. Results & Data Results & Data ([facility]) Vital Signs (Past 12 Hours) Vital Signs Pulse Resp BP Pulse Ox 12/24/21 11:00 99 H 30 H 133/84 95 12/24/21 10:43 100 H 38 H 94 12/24/21 10:00 93 H 30 H 130/75 94 12/24/21 09:00 100 H 38 H 147/84 H 93 12/24/21 08:00 107 H 38 H 129/90 96 12/24/21 07:15 103 H 34 H 96 12/24/21 07:00 101 H 40 H 139/80 93 12/24/21 06:00 97 H 26 H 155/78 H 92 12/24/21 05:30 96 H 26 H 93 12/24/21 05:00 92 H 26 H 151/78 H 94 12/24/21 04:30 92 H 26 H 94 12/24/21 04:10 94 H 28 H 93 12/24/21 04:00 94 H 29 H 148/77 H 93 12/24/21 03:30 87 29 H 92
--- NOTE | 2021-12-24 15:56 | XRay Report ---
SINGLE VIEW CHEST CLINICAL HISTORY: Hypoxia. FINDINGS: 2 AP, portable, upright chest radiographs are compared to study dated 12/18/2021. Correlatio n is made with chest CT dated 12/07/2021. The examination is degraded by portable technique and patient rotation. A tracheostomy is unchanged in position. The heart is enlarged. Extensive/diffuse airspa ce opacities are again seen throughout both lungs. This is similar to the 12/18/2021 examination. Smal l pleural effusions are suspected. No pneumothorax is seen. The skeletal structures appear osteopenic . The bony thorax is grossly intact. A gastrostomy tube is noted in the upper abdomen. IMPRESSION: 1. Extensive airspace opacities are again seen throughout both lungs, not significantly changed from 12/18/2021. 2. Cardiomegaly. 3. Suspect small pleural effusions. ACT 112: Negative or not required by law. Electronically signed by: Reece Cervantes M.D. 12/24/2021 3:55 PM
[2021-12-25 05:45] LABS: BUN Creatinine Ratio 30.5 (10-20); Calcium 8.2 mg/dl (8.5-10.1); Est GFR (African American) 129.3 ml/min; Est GFR (Non-African American) 111.6 ml/min; Magnesium 2.1 mg/dl (1.7-2.4); Phosphorus 2.6 mg/dl (2.5-4.9)
[2021-12-25] MEDS: TUBE FEEDING WATER FLUSH PEG SCH ×6 (06:03→23:42)
[2021-12-25] MEDS: INSULIN HUMAN REGULAR SC SCH ×4 (06:04→23:41)
[2021-12-25] MEDS: ICU ELECTROLYTE REPLACEMENT PROTOCOL SCH ×2 (06:09→17:08)
--- NOTE | 2021-12-25 07:11 | Critical Care Progress Note ---
Date of Service December 25, 2021 Assessment & Plan (1) Acute hypoxemic respiratory failure due to COVID-19: (2) COVID-19: (3) Lung fibrosis: (4) ARDS (adult respiratory distress syndrome): (5) Factor V Leiden carrier: (6) Bacteremia: Plan: Neuro: Continue to try and mobilize as tolerated. PT and OT in progress.Increase Prozac to 40 mg. Cardiovascular: Hypotension resolved. Off pressors now. oral midodrine: 5 mg TID Remains tachycardic, however improved. Continue propranolol, 10 mg three times daily, for anticatabolic effects and persistent tachycardia. -Continue iron and vitamin C for anemia. Respiratory: Respiratory failure secondary to ARDS with significant fibrotic changes. Pneumomediastinum has resolved.Trach upsized to 8 cuffed Shiley, still some leak. Remains hypercarbic with very stiff lungs and poor compliance. May need evaluation for lung transplant at some point. -Patient has remained stable on 60% FiO2 continue current vent settings -Patient was to be transferred to LTAC 12/24 but had significant cuff leak and was unable to tolerate transport ventilator -- unable to be transferred - Consult ENT for evaluation of the tracheostomy and to evaluate the cuff leak. Renal/lytes: Kidney function back to normal. Electrolyte replacement as needed. Try and keep on slight negative balance. He does have evidence of peripheral edema. - Continue free water via PEG tube: 200 mL every 4. : Prazosin DC'd. Discontinuing straight catheter as patient is on warfarin. Voiding spontaneously. ID: Coag negative staph in blood 3 out of 4 bottles. Stopped after 8 days vancomycin, white count and fever curve are better. -Surveillance cultures negative., Off antibiotics Heme:History of factor V Leiden with acute DVT. Mild anemia -Iron and vitamin C Long-term anticoagulation with warfarin -Subtherapeutic today. Give warfarin 10mg. GI:Continue tube feeding.Protonix. Lactulose prn added due to starting iron as above. Endo: Glycemic control per protocol. Oxandrolone discontinued Continue 48-hour labs and continue to normalize patient with aggressive physical therapy. Plan for transfer to LTAC -- as above, evaluation of trach/cuff leak pending Admission and Anticipated Discharge Date Admission Date: November 03, 2021 Supervising Physician Co-Signing Physician Notes Agree with assessment and plan of resident physician aside for any additions/exceptions noted: Subjective: No new changes today. Stable on vent. Patient with ventilatory dependent respiratory failure due to COVID-19 viral pneumonia. He has evidence of fibrotic disease. Hopefully, he will continue to have improvement in his lung function over a period of time. Continue tube feeds. Replacing electrolytes. Continue warfarin. He does have a history of factor V Leiden deficiency and DVT. Continue metoprolol. ENT to look at trach today. We have tried multiple different trachs without significant improvement in the cuff leak. Chest x-ray with persistent multifocal infiltrates Constitutional: Frail appearing male laying in bed with tracheostomy in place. Eyes: Pupils are equal round and reactive to light. Conjunctivae are normal. Anicteric sclera. Ears nose, mouth and throat: EOMI. No obvious deformities. Neck: Tracheostomy in place. Respiratory: Coarse breath sounds bilaterally. Tachypnea. Cardiovascular: Regular rate and rhythm. No murmurs. No edema. Gastrointestinal: Normal bowel sounds, soft, nontender and nondistended. PEG tube in place. Musculoskeletal: No cyanosis. Patient is able to move all extremities. Skin: No rashes, warm dry and intact. Neurologic: No obvious focal neurological deficits seen. Psychiatric: Appears comfortable without any distress Subjective Yeterday planning to DC to LTAC but had significant cuff leak and did not tolerate transport vent. Tolerating vent here overnight with adequate O2 sats. Alert and following commands. Denies any current discomfort. Review of Systems Review of Systems: Limited due to trach Physical Exam Physical Exam: General: Alert, following commands. NAD. HEENT: Atraumatic, tracheostomy tube in place Cardiovascular: Tachycardic, regular rhythm. -mgr Respiratory: CTAB, -wrr Gastrointestinal: NTND, BS+x4 Musculoskeletal: No clubbing, no cyanosis, no edema Skin: Warm and dry, no rashes or lesions Results & Data Results & Data ([facility]) Vital Signs (Past 12 Hours) Vital Signs Temp Pulse Resp BP Pulse Ox 12/25/21 06:00 100 H 17 155/89 H 97 12/25/21 05:30 85 24 95 12/25/21 05:01 100 H 44 H 143/87 H 91 12/25/21 05:00 104 H 35 H 155/89 H 90 12/25/21 04:30 107 H 25 H 95 12/25/21 04:00 94 H 22 107/75 96 12/25/21 03:30 36.9 C 89 20 95 12/25/21 03:00 36.9 C 162/82 H 12/25/21 02:30 92 H 32 H 95 12/25/21 01:30 98 H 33 H 92 12/25/21 01:00 98 H 36 H 131/75 90 12/25/21 00:30 88 29 H 93 12/25/21 00:00 37.0 C 94 H 22 147/77 H 93 12/24/21 23:35 88 12/24/21 23:30 102 H 38 H 129/75 96 12/24/21 23:00 92 H 35 H 94 12/24/21 22:45 91 H 35 H 93 12/24/21 22:00 86 33 H 130/73 96 12/24/21 21:30 91 H 31 H 97 12/24/21 20:30 108 H 34 H 131/79 93 12/24/21 20:00 37.1 C 100 H 36 H 92 Critical Care Results & Data Vital Signs (Past 12 Hours) Vital Signs Temp Pulse Resp BP Pulse Ox 12/25/21 06:00 100 H 17 155/89 H 97 12/25/21 05:30 85 24 95 12/25/21 05:01 100 H 44 H 143/87 H 91 12/25/21 05:00 104 H 35 H 155/89 H 90 12/25/21 04:30 107 H 25 H 95 12/25/21 04:00 94 H 22 107/75 96 12/25/21 03:30 36.9 C 89 20 95 12/25/21 03:00 36.9 C 162/82 H 12/25/21 02:30 92 H 32 H 95 12/25/21 01:30 98 H 33 H 92 12/25/21 01:00 98 H 36 H 131/75 90 12/25/21 00:30 88 29 H 93 12/25/21 00:00 37.0 C 94 H 22 147/77 H 93 12/24/21 23:35 88 12/24/21 23:30 102 H 38 H 129/75 96 12/24/21 23:00 92 H 35 H 94 12/24/21 22:45 91 H 35 H 93 12/24/21 22:00 86 33 H 130/73 96 12/24/21 21:30 91 H 31 H 97 12/24/21 20:30 108 H 34 H 131/79 93 12/24/21 20:00 37.1 C 100 H 36 H 92 Lab & Micro Results (Past 24 Hours) No Data to Display Na 139 mmol/L (136-145) 12/25/21 K 4.0 mmol/L (3.5-5.1) 12/25/21 Cl 97 mmol/L (98-107) L 12/25/21 CO2 37 mmol/L (21-32) H 12/25/21 Anion Gap 5 (3-11) 12/25/21 BUN 18 mg/dl (6-23) 12/25/21 Creatinine 0.59 mg/dl (0.6-1.4) L 12/25/21 Estimated GFR ( Amer) 129.3 ml/min 12/25/21 Estimated GFR (Non-Af Amer) 111.6 ml/min 12/25/21 BUN/Creatinine Ratio 30.5 (10-20) H 12/25/21 Glu 88 mg/dl (70-99(Fasting)) 12/25/21 Ca 8.2 mg/dl (8.5-10.1) L 12/25/21 Phosphorus Level 2.6 mg/dl (2.5-4.9) 12/25/21 Mg 2.1 mg/dl (1.7-2.4) 12/25/21 04:52 12/25/21 Calcium Level 8.2 mg/dl (8.5-10.1) L 12/25/21 04:52 12/25/21 Prothromb Time International Ratio 1.9 (0.9-1.1) H 12/25/21 07:33 12/25/21 Diagnostic Findings (Past 24 Hours) Chest X-Ray 12/24/21 15:22 SINGLE VIEW CHEST CLINICAL HISTORY: Hypoxia. FINDINGS: 2 AP, portable, upright chest radiographs are compared to study dated 12/18/2021. Correlation is made with chest CT dated 12/07/2021. The examination is degraded by portable technique and patient rotation. A tracheostomy is unchanged in position. The heart is enlarged. Extensive/diffuse airspace opacities are again seen throughout both lungs. This is similar to the 12/18/2021 examination. Small pleural effusions are suspected. No pneumothorax is seen. The skeletal structures appear osteopenic. The bony thorax is grossly intact. A gastrostomy tube is noted in the upper abdomen. IMPRESSION: 1. Extensive airspace opacities are again seen throughout both lungs, not significantly changed from 12/18/2021. 2. Cardiomegaly. 3. Suspect small pleural effusions. ACT 112: Negative or not required by law. Electronically signed by: Reece Cervantes M.D. 12/24/2021 3:55 PM I & O Totals 24 Hours 12/24/21 12/25/21 12/26/21 06:59 06:59 06:59 Intake Total 1400 / 1400 1431.667 / 1431.667 Output Total 1251 / 1251 1102 / 1102 Balance 149 / 149 329.667 / 329.667 Cumulative 11/03/21 14:22 thru 12/25/21 06:00 Intake Total 49106.764 Output Total 59673 Balance -1905.236 RT Ventilator Mngmt (Last Documented) Ventilator Ordered Settings Ventilator Support Mode Assist Control 12/25/21 04:30 Respiratory Rate 17 12/25/21 06:00 Ventilator Tidal Volume 480 12/25/21 04:30 Setting Minute Ventilation 10.6 12/25/21 04:30 Ventilator Positive Pressure 5 12/24/21 00:00 Support Setting Positive End Expiratory 5 12/25/21 04:30 Pressure Fraction of Inspired Oxygen 40 12/25/21 04:30 Peak Inspiratory Flow 48 12/21/21 16:14 Inspiratory Pressure 35 12/14/21 08:54 Machine Comment weaned to 45% 12/21/21 11:55 Ventilator - PT Measurements Respiratory Rate 17 Exhaled Tidal Volume 330 Minute Ventilation 10.6 Peak Inspiratory Airway 16 Pressure Plateau Pressure 13 Respiratory Cycle Inspiratory: 1:1.5 Expiratory Ratio Inspiratory Phase Time 0.8 End-Tidal CO2 16 Static Lung Compliance 40.50 Dynamic Lung Compliance 30.00 Normal Static Lung Compliance 47.00 Patient Measurements Comment Patient coughed out a moderate amount of thick, white secretions while off vent for IC change Resident Activity Tracking Resident Involvement: Resident Care Provided Care Provided: Adult Hospital Medicine
[2021-12-25 07:57] LABS: INR 1.9 (0.9-1.1); Prothrombin Time 18.5 Seconds (9.0-12.0)
[2021-12-25] MEDS ORDERED: WARFARIN SOD 10 MG TAB PO ONE (10:02)
--- NOTE | 2021-12-25 10:36 | Billing Data ---
Date of Service December 25, 2021 Coding Level of Care Code 53398 Subseq Hosp Care Lvl 3
[2021-12-25] MEDS ORDERED: LORazepam 2 MG/4 ML VIAL ONE (11:29)
[2021-12-25] MEDS: FLUoxetine HCL 20 MG/5 ML 120ML BTL PO SCH (11:52)
[2021-12-25] MEDS: DOCUSATE SODIUM SYRUP 100 MG/10 ML UDC PO SCH ×2 (11:53→19:18)
[2021-12-25] MEDS: LANSOPRAZOLE 30 MG SOLTAB NG SCH (11:53)
[2021-12-25] MEDS: FERROUS SULFATE 325 MG/7.4 ML UDP PO SCH (11:53)
[2021-12-25] MEDS: METOPROLOL TARTRATE 25 MG TAB PO SCH ×2 (12:01→20:22)
[2021-12-25] MEDS: ATORVASTATIN 20 MG TAB PO SCH (12:02)
[2021-12-25] MEDS: PEPTAMEN 1.5 CAL 1,000 ML BAG PEG SCH (12:03)
[2021-12-25] MEDS ORDERED: LORazepam 0.5 MG/1 ML VIAL IV STA (12:17)
--- NOTE | 2021-12-25 12:29 | Operative Report ---
PG Post Operative Report Pre & Post Diagnosis Operation Date: 12/25/21 Pre-Op Diagnosis: Leaking tracheostomy tube Post-Op Diagnosis: New tracheostomy tube with seal I identified the patient and participated in the time-out.: Yes Procedure Operation Date: 12/25/21 Actual Procedures: Fiberoptic bronchoscopy and laryngoscopy Surgeon Shilpa Carreno MD Public Policy Associate None Estimated Blood Loss 0 Findings Consistent with Post-Op Diagnosis Leak around old tracheostomy cuff. No leak around the nasal XLT tracheostomy tube Specimens None Anesthesia Type Local Complications None Description of Procedure He was in the ICU supine position. We anesthetized the nose and the trachea with 4% Xylocaine atomizer. We used the bronchoscope and first visualized the trachea via the tracheostomy. James was sharp mainstem bronchi were clear with no sign of mucous plugging. I then visualized the larynx via the left nares. Epiglottis was sharp. Vocal cords were mobile. I went through the vocal cords and visualize the subglottic area which was visualized showing subglottic stenosis with granulation tissue. Just past this area was the Shiley tracheostomy tube with leak posterior to the balloon. No sign of tracheomalacia or tracheal ulcerations. We then remove the Shiley tracheostomy tube and placed an XLT size 8 tube with good seal. We then revisualize the trachea via the tracheostomy noting the tracheostomy tube to be at least 4 cm above the james and in good position. He tolerated procedure well. I attest to the content of the Intraoperative Record and any orders documented therein. Any exceptions are noted below.
--- NOTE | 2021-12-25 12:31 | ENT Consultation ---
Date of Consultation December 25, 2021 Assessment & Plan (1) Acute hypoxemic respiratory failure due to COVID-19: After fiberoptic bronchoscopy and laryngoscopy we detected a leak at the posterior border of the balloon of the tracheostomy tube. We changed from Shiley to XLT size 8 tube with good seal. History of Present Illness Reason for Consultation: Respiratory failure with leak around the tracheostomy cuff Attending Physician: Garrett Dover MD Allergies Allergy/AdvReac Type Severity Reaction Status Date / Time Sulfa (Sulfonamide Allergy Intermediate "tongue Verified 11/03/21 19:25 Antibiotics) turned black" Home Medications Medication Instructions Recorded Confirmed Type atorvastatin 20 mg tablet 20 mg PO DAILY 11/02/21 11/03/21 History ondansetron 4 mg disintegrating 4 mg PO Q6H PRN #20 tab 11/02/21 11/03/21 Rx tablet warfarin 1 mg tablet 2 mg PO 5XWK 11/02/21 11/03/21 History warfarin 10 mg tablet 10 mg PO DAILY 11/02/21 11/03/21 History Patient History Medical History (Updated 12/11/21 @ 10:35 by Gil Dia MD) Acute hypoxemic respiratory failure due to COVID-19 ARDS (adult respiratory distress syndrome) COVID-19 Dyslipidemia Factor V Leiden carrier Warfarin History of DVT (deep vein thrombosis) Lung fibrosis Pneumomediastinum Surgical History No history of previous surgery Social History Smoking Status: Never smoker Hx Alcohol Use: No Hx Substance Use: No Preferred Language: Guamanian Communication Ability: Effective Banquet Server Required: No Beliefs That Will Affect Care: Protestant Protestant Beliefs: no blood products marital status: Current Living Situation: Family current occupational status: employed Other Information That Helps Us Care for You: No Feels Safe at Home: Yes Safety Concerns: Feels Safe At This Time Assistive Devices: Oxygen - Continuous Results & Data ([facility]) Vital Signs (Past 12 Hours) Vital Signs Temp Pulse Resp BP Pulse Ox 12/25/21 11:00 93 H 41 H 132/74 92 12/25/21 10:00 99 H 0 L 157/94 H 96 12/25/21 09:00 87 28 H 96 12/25/21 08:00 85 24 97 12/25/21 07:34 97 H 42 H 97 12/25/21 07:00 103 H 27 H 154/86 H 96 12/25/21 06:45 81 22 96 12/25/21 06:00 100 H 17 155/89 H 97 12/25/21 05:30 85 24 95 12/25/21 05:01 100 H 44 H 143/87 H 91 12/25/21 05:00 104 H 35 H 155/89 H 90 12/25/21 04:30 107 H 25 H 95 12/25/21 04:00 94 H 22 107/75 96 12/25/21 03:30 36.9 C 89 20 95 12/25/21 03:00 36.9 C 162/82 H 12/25/21 02:30 92 H 32 H 95 12/25/21 01:30 98 H 33 H 92 12/25/21 01:00 98 H 36 H 131/75 90 12/25/21 00:30 88 29 H 93
[2021-12-25] MEDS ORDERED: WARFARIN SOD 7.5 MG TAB PO SCH (16:00)
--- NOTE | 2021-12-25 16:43 | Hospitalist Progress Note ---
Date of Service December 25, 2021 Assessment & Plan (1) Acute hypoxemic respiratory failure due to COVID-19: (2) DVT (deep venous thrombosis): Plan: (1) Acute respiratory failure: (2) ARDS (adult respiratory distress syndrome): (3) 2019 novel coronavirus-infected pneumonia (NCIP): Respiratory failure 2/2 ARDS with fibrotic changes. Pneumomediastinum has resolved.Intubated on 11/20/21 --> 11/26/2021 tracheostomy status --> 12/25 tube exchanged due to cuff leak, on mechanical ventilation being managed per critical care team. Remains on ventilator in ICU, wean as tolerated. Completed dexamethasone. LTAC soon --> was discharged to LTAC 12/24 but could not tolerate transport ventilation d/t cuff leak and hence canceled. 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 Resolved. (5) DVT (deep venous thrombosis): FVL carrier with chronic appearing DVT in LLE (seen on us 11/06/21). Patient on warfarin. 12/24 Discussed with pharmacy, warfarin 10 mg on Sundays and 7.5 mg daily for the rest of the days. Continue to monitor PT/INR closely and adjust warfarin dose as appropriate. Plan for LTAC. DNR/DNI Admission and Anticipated Discharge Date Admission Date: November 03, 2021 Subjective Patient seen and examined at the bedside for acute respiratory failure secondary to pneumonia secondary to COVID-19 virus infection. Patient was lying in bed, alert and oriented x3, mechanically ventilated via tracheostomy tube, no new acute events overnight. Per RN patient is doing better but frustrated because he [facility] not [facility] due to Trach cuff leak. Patient is getting tube feed via PEG tube --> currently held for tracheostomy tube exchange later today, denies any fever/chills/chest pain/palpitations/belly pain/other review of symptoms. Physical Exam Physical Exam: GENERAL: Alert and oriented x3. NAD, on MV via Trach HEENT: No pallor, no icterus. Pupils equal, round and reactive to light. Oral mucosa moist. NECK: No JVD, no neck masses. Trach tube in situ w/ collar. HEART: S1 and S2 heard. Regular rate and rhythm. No murmur, no gallop. RESPIRATORY SYSTEM: Normal AP diameter. No accessory muscle use. No wheezing, no crackles w/ conducted breath sounds. ABDOMEN: Soft, bowel sounds present, nontender, no distention. PEG tube in situ. CENTRAL NERVOUS SYSTEM: No facial droop. Speech is clear. Obeys simple commands. Moves extremities. EXTREMITIES: No edema, no erythema seen. Results & Data Results & Data ([facility]) Vital Signs (Past 12 Hours) Vital Signs Pulse Resp BP Pulse Ox 12/25/21 15:13 95 H 12/25/21 15:00 96 H 20 101/53 L 100 12/25/21 14:00 85 0 L 98/59 L 98 12/25/21 13:00 109 H 20 97/58 L 99 12/25/21 12:00 101 H 27 H 150/79 H 97 12/25/21 11:53 108 H 23 98 12/25/21 11:00 93 H 41 H 132/74 92 12/25/21 10:00 99 H 0 L 157/94 H 96 12/25/21 09:00 87 28 H 96 12/25/21 08:00 85 24 97 12/25/21 07:34 97 H 42 H 97 12/25/21 07:00 103 H 27 H 154/86 H 96 12/25/21 06:45 81 22 96 12/25/21 06:00 100 H 17 155/89 H 97 12/25/21 05:30 85 24 95 12/25/21 05:01 100 H 44 H 143/87 H 91 12/25/21 05:00 104 H 35 H 155/89 H 90
[2021-12-25 16:51] LABS: iSTAT Allen Test Pass; iSTAT Art Bld Gas pCO2 Correct 62 mmHg (35-46); iSTAT Art Bld Gas pH Corrected 7.394 (7.35-7.45); iSTAT Arterial Blood Gas HCO3 38 meg/L (19-24); iSTAT Arterial Blood Gas pCO2 62 mmHg (35-46); iSTAT Arterial Blood Gas pH 7.39 (7.35-7.45); iSTAT Arterial Blood Gas pO2 62 mmHg (80-95); iSTAT Arterial Blood Gas pO2 C 61; iSTAT Carbon Dioxide 39 mmol/L (24-31); iSTAT FiO2 50 %; iSTAT Hematocrit 21 % (42-52); iSTAT Hemoglobin 7.1 g/dl (14.0-18.0); iSTAT Potassium 3.8 mmol/L (3.3-5.0); iSTAT Site R Radial; iSTAT Sodium 136 mmol/L (135-144)
[2021-12-25 23:42] LABS: iSTAT Allen Test Pass; iSTAT Art Bld Gas pCO2 Correct 62 mmHg (35-46); iSTAT Arterial Blood Gas HCO3 39 meg/L (19-24); iSTAT Arterial Blood Gas pCO2 62 mmHg (35-46); iSTAT Arterial Blood Gas pO2 66 mmHg (80-95); iSTAT Arterial Blood Gas pO2 C 65; iSTAT Carbon Dioxide > 40 mmol/L (24-31); iSTAT FiO2 30 %; iSTAT Hematocrit 20 % (42-52); iSTAT Hemoglobin 6.8 g/dl (14.0-18.0); iSTAT Potassium 3.9 mmol/L (3.3-5.0); iSTAT Site L Radial; iSTAT Sodium 135 mmol/L (135-144)
[2021-12-26] MEDS: TUBE FEEDING WATER FLUSH PEG SCH ×4 (04:06→15:36)
[2021-12-26 05:34] LABS: INR 2.5 (0.9-1.1); Prothrombin Time 23.7 Seconds (9.0-12.0)
[2021-12-26] MEDS: INSULIN HUMAN REGULAR SC SCH ×2 (05:36→12:20)
[2021-12-26] MEDS: PEPTAMEN 1.5 CAL 1,000 ML BAG PEG SCH (06:02)
[2021-12-26 06:04] LABS: BUN Creatinine Ratio 38.9 (10-20); Calcium 8.2 mg/dl (8.5-10.1); Creatinine Clr Calc Pharmacy 144.3 ml/min; Est GFR (African American) 134.1 ml/min; Est GFR (Non-African American) 115.7 ml/min; Magnesium 1.8 mg/dl (1.7-2.4); Potassium 3.8 mmol/L (3.5-5.1)
[2021-12-26] MEDS: ICU ELECTROLYTE REPLACEMENT PROTOCOL SCH (06:08)
[2021-12-26] MEDS: MAGNESIUM OXIDE 400 MG TAB NG SCH ×2 (06:29→09:46)
[2021-12-26] MEDS: POTASSIUM CHLORIDE 20 MEQ/15 ML UDC NG SCH ×2 (06:29→09:46)
[2021-12-26] MEDS: POT PHOSPHATE MONOBASIC W/ SOD TAB NG SCH ×3 (06:29→14:34)
[2021-12-26 06:57] LABS: Eosinophils # (auto) 0.43 K/uL (0-0.5); Eosinophils % (auto) 4.7 %; Hematocrit (blood only) 22.5 % (42-52); Immature Granulocytes # (auto) 0.02 K/uL (0.00-0.02); Immature Granulocytes % (auto) 0.2 %; Lymphocytes # (auto) 0.92 K/uL (1.2-3.4); Mean Corpuscular Hemoglobin 29.4 pg (25-34); Mean Corpuscular Hgb Conc 31.1 g/dL (32-36); Mean Corpuscular Volume 94.5 fL (80-100); Mean Platelet Volume 10.7 fL (7.4-10.4); Monocytes # (auto) 0.96 K/uL (0.11-0.59); Monocytes % (auto) 10.5 %; Neutrophils # (auto) 6.84 K/uL (1.4-6.5); Neutrophils % (auto) 74.6 %; Platelet Count 213 K/uL (130-400); RDW Coefficient of Variation 17.3 % (11.5-14.5); RDW Standard Deviation 59.9 fL (36.4-46.3); Red Blood Count 2.38 M/uL (4.7-6.1); White Blood Count 9.17 K/uL (4.8-10.8)
[2021-12-26 07:26] LABS: RBC Morphology Unremarkable
[2021-12-26] MEDS: METOPROLOL TARTRATE 25 MG TAB PO SCH (08:27)
[2021-12-26] MEDS: FLUoxetine HCL 20 MG/5 ML 120ML BTL PO SCH ×2 (08:28→09:16)
[2021-12-26] MEDS: DOCUSATE SODIUM SYRUP 100 MG/10 ML UDC PO SCH ×2 (08:28→09:16)
[2021-12-26] MEDS: LANSOPRAZOLE 30 MG SOLTAB NG SCH (08:29)
[2021-12-26] MEDS: FERROUS SULFATE 325 MG/7.4 ML UDP PO SCH (08:29)
[2021-12-26] MEDS: ATORVASTATIN 20 MG TAB PO SCH (08:29)
[2021-12-26 11:12] VITALS: TEMP 98.1
[2021-12-26] MEDS ORDERED: ACETAMINOPHEN SUSP 160 MG/5 ML BTL PO PRN ×2 (11:30→16:15)
--- NOTE | 2021-12-26 12:52 | Critical Care Progress Note ---
Date of Service December 26, 2021 Assessment & Plan (1) Acute hypoxemic respiratory failure due to COVID-19: (2) COVID-19: (3) Lung fibrosis: (4) ARDS (adult respiratory distress syndrome): (5) Factor V Leiden carrier: (6) Bacteremia: Plan: 56-year-old male with history of COVID-19 viral pneumonia and a prolonged hospital stay now with tracheostomy dependent respiratory failure. Neuro: No significant issues. Occasional anxiety, but reluctant to try benzodiazepines. Tolerating fluoxetine 40 mg daily without issue. Cardiovascular: No significant issues at present. Continue metoprolol 12.5 mg twice daily for mild sinus tachycardia likely due to acute illness which is resolving. Patient is off midodrine. Continue atorvastatin. Respiratory: He has findings consistent with fibrotic ARDS. Hopefully he will continue to improve with time, but will likely benefit from outpatient pulmonary rehab when his strength improves. He no longer has a cuff leak with the size 8 Shiley XLT. We will continue to wean off the ventilator while in LTAC. He is appropriate and stable for transfer to LTAC at this time. Greatly appreciate ENT input of Dr. Carreno. Renal/lytes: Continue replacement of electrolytes. No significant issues. Mild metabolic alkalosis which is resolving. Mild hyponatremia seen today. Decrease water flushes. : No issues. ID: Coag negative staph in blood 3 out of 4 bottles. Stopped after 8 days vancomycin, white count and fever curve are better.Surveillance cultures negative. Off antibiotics. Heme:History of factor V Leiden with acute DVT. Anemia likely secondary to frequent blood draws and critical illness which is resolving. Continue daily warfarin dosing. GI:Continue tube feeding. Endo: Glycemic control per protocol. Dispo: Patient stable for transfer to LTAC. Appreciate case management input. Admission and Anticipated Discharge Date Admission Date: November 03, 2021 Subjective Patient seen and examined. He was on high flow oxygen via the tracheostomy today and tolerated that well. We will transition him back to pressure support at this time. He has some mild tachypnea. Denies any pain or discomfort. Hemodynamically stable. Otherwise no acute events. He has tolerated the size 8 XLT Shiley tracheostomy without issues since placement yesterday. Review of Systems Review of Systems: All systems reviewed & are unremarkable except as noted in HPI & below Physical Exam Physical Exam: General: Alert, following commands. NAD. HEENT: Atraumatic, tracheostomy tube in place Cardiovascular: Tachycardic, regular rhythm. No murmurs. Respiratory: CTAB, mild tachypnea. Gastrointestinal: NTND, BS+x4 Musculoskeletal: No clubbing, no cyanosis, no edema Skin: Warm and dry, no rashes or lesions Neuro: No focal issues. Results & Data Results & Data ([facility]) Vital Signs (Past 12 Hours) Vital Signs Temp Pulse Pulse Resp BP Pulse Ox 12/26/21 11:00 96 H 36 H 135/93 90 12/26/21 10:12 91 H 34 H 98 12/26/21 10:00 112 H 0 L 119/73 100 12/26/21 09:00 99 H 24 106/66 94 12/26/21 08:02 87 21 94 12/26/21 08:00 36.7 C 98 H 24 120/71 97 12/26/21 07:00 109 H 24 111/69 95 12/26/21 06:00 108 H 23 117/67 93 12/26/21 05:30 107 H 32 H 95 12/26/21 05:00 90 24 102/59 L 96 12/26/21 04:30 101 H 20 92 12/26/21 04:00 37.0 C 90 0 L 113/64 93 12/26/21 03:15 98 H 22 97 12/26/21 03:00 92 H 0 L 94/55 L 95 12/26/21 02:00 99 H 19 94/54 L 98 12/26/21 01:00 100 H 21 98/53 L 96 12/26/21 00:44 96 H Vitals, labs and imaging personally reviewed Coding Level of Care Code 25708 Subseq Hosp Care Lvl 2 Diagnoses Acute hypoxemic respiratory failure due to COVID-19 U07.1; J96.01 COVID-19 U07.1 Lung fibrosis J84.10 ARDS (adult respiratory distress syndrome) J80 Factor V Leiden carrier D68.51 Bacteremia R78.81
--- NOTE | 2021-12-26 13:53 | Discharge Summary ---
Date of Service December 26, 2021 Admission HPI Per Admitting Provider Chief Complaint: Worsening shortness of breath and weakness, COVID-19 Primary Care Provider: Dr. Vuong History obtained from patient and records. Medical history significant for hypercoagulable state (factor V Leiden mutation, recurrent blood clots) on Coumadin, hyperlipidemia. Patient has not been well the last 11 days. Nausea vomiting watery diarrhea symptoms without abdominal pain. Poor appetite. Nonproductive cough. No chest pain, no S OB. Transient headache symptoms. Patient has not received COVID-19 vaccination. Possible sick contacts at work. Outpatient COVID-19 test from last week was positive. Other family members tested positive as well. Patient seen at the ER yesterday. Abdominal x-ray did not show bowel obstruction. Chest x-ray showed viral pneumonia. Patient sent home. Worsening weakness, shortness of breath on exertion at home without chest pain. Patient returned to the ER. O2 sats 80s on room air at some point during ER stay. IV Decadron given at the ER. 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 Admission Exam Per Admitting Provider GENERAL: uncomfortable, slightly anxious, obese, no respiratory distress SKIN: Normal color, warm HEENT: [place] palpebral conjunctivae, no ptosis, dry buccal mucosa, nasal cannula in place NECK : Supple, no tenderness CHEST : Decreased breath sounds, expiratory wheezes, no tenderness HEART : Tachycardic, no obvious murmurs ABDOMEN: Some distention, nontender EXTREMITIES : No LE swelling/tenderness, no other conspicuous deformities noted NEUROLOGIC : Coherent, no facial asymmetry, no other gross focality Principal Diagnosis Acute respiratory failure due to COVID-19 Tracheostomy and PEG status Factor V Leiden carrier with acute DVT Discharge Exam GENERAL: Alert and oriented x3. NAD, on 30L at 45% via Trach at bedside HEENT: No pallor, no icterus. Pupils equal, round and reactive to light. Oral mucosa moist. NECK: No JVD, no neck masses. Trach tube in situ w/ collar. HEART: S1 and S2 heard. Regular rate and rhythm. No murmur, no gallop. RESPIRATORY SYSTEM: Normal AP diameter. No accessory muscle use. No wheezing, coarse crackles b/l ABDOMEN: Soft, bowel sounds present, nontender, no distention. PEG tube in situ. CENTRAL NERVOUS SYSTEM: No facial droop. Speech is clear. Obeys simple commands. Moves extremities. EXTREMITIES: No edema, no erythema seen. Discharge Data Allergies Allergy/AdvReac Type Severity Reaction Status Date / Time Sulfa (Sulfonamide Allergy Intermediate "tongue Verified 11/03/21 19:25 Antibiotics) turned black" Consultations 11/03/21 19:53 ED Decision to Admit Stat 11/19/21 16:23 Consult Pulmonology Routine 12/09/21 11:37 Consult Gastroenterology Routine 12/24/21 20:18 Consult Otolaryngology (Head and Neck) Routine 12/26/21 11:58 Burn CD for patient Routine Procedures Performed Operation Date: 12/11/21 16:30 Actual Procedures p EGD Gastric Tube Placement - Tony Camacho Case, DO Ordered Studies 11/06/21 20:16 US venous doppler LE LT Urgent 11/19/21 13:54 CT angio chest PE protocol Stat 11/20/21 14:39 US point of care ultrasound Urgent 11/29/21 10:32 CT abd pelvis IV con only Routine CT chest diagnostic w con Routine 11/30/21 14:38 CT head/brain wo con Stat 12/05/21 08:00 MR brain wo con Routine 12/07/21 04:16 CT angio chest PE protocol Urgent CT head/brain wo con Urgent Hospital Course (1) Acute hypoxemic respiratory failure due to COVID-19: (2) DVT (deep venous thrombosis): 56-year-old gentleman with PMH of factor V Leyden carrier, HLD who was admitted early October for Covid and had a long protracted clinical course while in the hospital. He was managed for the following: (1) Acute respiratory failure: (2) ARDS (adult respiratory distress syndrome): (3) 2019 novel coronavirus-infected pneumonia (NCIP): Respiratory failure 2/2 ARDS with fibrotic changes. Pneumomediastinum has resolved.Intubated on 11/20/21 --> 11/26/2021 tracheostomy status --> 12/25 tube exchanged due to cuff leak, on mechanical ventilation being managed per critical care team. Remains on ventilator in ICU, wean as tolerated. Completed dexamethasone. Will need pulmonary rehab as an outpatient. LTAC soon --> was discharged to LTAC 12/24 but could not tolerate transport ventilation d/t cuff leak and hence canceled. Now that patient's tracheostomy tubes are exchanged and not leaking, hopefully patient will be able to get transferred to LTAC today. 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 Resolved. (5) DVT (deep venous thrombosis): FVL carrier with chronic appearing DVT in LLE (seen on us 11/06/21). Patient on warfarin. 12/24 Discussed with pharmacy, warfarin 10 mg on Sundays and 7.5 mg daily for the rest of the days. Continue to monitor PT/INR closely and adjust warfarin dose as appropriate. Plan for LTAC. DNR/DNI Accepting physician Dr. Spring at [facility] was given a phone call and signed out on the patient care. Made him aware that his inpatient medications will be copied/pasted in the instruction sections and home medications will be left alone in the med rec section for the purpose of comparison. Patient's Mary Ann was given a phone call on the day of discharge and updated about the patient's status. Following instructions were communicated at the point of discharge: Follow-up with your primary care physician within a week time. Follow-up with pulmonology in 1 to 2 weeks time. Also need to establish with Pulmonary rehab down the road. You are being discharged to LTAC on mechanical ventilation per pulmonology/critical care team's recommendation here, you will need close follow-up with pulmonology team. Because of acute DVT, you are started on warfarin, you will need PT/INR in 2 to 3 days upon discharge and close follow-up with Coumadin clinic for dose titration as an outpatient as appropriate. You are off of isolation for Covid. In the discharge plan med rec, patient's home medications including warfarin dose are continued as it is (for the purpose of comparison) (made Accepting Physician Dr. Spring at [facility] made aware) but he is actually getting the following medications while inpatient on the day of discharge. Warfarin dose determined after discussion with pharmacy as ---> Warfarin 7.5mg daily for 6 days a week and 10 mg for 1 day a week (Brenna). Same was signed out when calling the oncall at [facility]. Patient is on PEG tube feeding. Total Time Total Time Spent Total Time Spent (In Minutes): 40 Discharge Plan Discharge Items Patient Disposition: Transfer Acute Care Hospital Reason For Visit: COV POS 10/29/21/DIARRHEA/CAN'T EAT/WEAK/LOW O2 Discharge Diagnosis: Acute respiratory failure due to COVID-19 Tracheostomy and PEG status Factor V Leiden carrier with acute DVT Activity: As commented below Activity Comment: per PT/OT at LTAC facility. Non-emergency contact: Primary Care Provider and Cannon Crewmember Call non-emergency contact if: you have any medication questions, your symptoms worsen and your temperature is above 101 Follow-up/Referrals: PCP,NO [Primary Care Provider] - Diet: Other - See Diet Comment Diet Comment: PEG tube feed Addtl Attending Provider Instructions: Follow-up with your primary care physician within a week time. Follow-up with pulmonology in 1 to 2 weeks time. Also need to establish with Pulmonary rehab down the road. You are being discharged to LTAC on mechanical ventilation per pulmonology/critical care team's recommendation here, you will need close follow-up with pulmonology team. Because of acute DVT, you are started on warfarin, you will need PT/INR in 2 to 3 days upon discharge and close follow-up with Coumadin clinic for dose titration as an outpatient as appropriate. You are off of isolation for Covid. In the discharge plan med [facility], patient's home medications including warfarin dose are continued as it is (for the purpose of comparison) (made Accepting Physician Dr. Spring at [facility] made aware) but he is actually getting the following medications while inpatient on the day of discharge. Warfarin dose determined after discussion with pharmacy as ---> Warfarin 7.5mg daily for 6 days a week and 10 mg for 1 day a week (Brenna). Same was signed out when calling the oncall at [facility]. Patient is on PEG tube feeding. Current Inpatient Medications Acetaminophen (Acetaminophen Susp 160 Mg/5 Ml Btl) 500 mg PO Q6H PRN PRN Reason: Pain or Fever Stop: 01/25/22 11:15 Atorvastatin Calcium (Atorvastatin 20 Mg Tab) 20 mg PO DAILY YANDEL Stop: 01/15/22 08:59 Last Admin: 12/26/21 08:29 Dose: 20 mg Documented by: Docusate Sodium (Docusate Sodium Syrup 100 Mg/10 Ml Udc) 100 mg PO BID YANDEL Stop: 12/28/21 20:59 Last Admin: 12/26/21 09:16 Dose: Not Given Documented by: Enteral Nutritional Formula (Peptamen 1.5 Sid 1,000 Ml Bag) 1,000 ml PEG CONT [facility]; Protocol Stop: 01/21/22 10:44 Last Admin: 12/26/21 06:02 Dose: 1,000 ml Documented by: Ferrous Sulfate (Ferrous Sulfate 325 Mg/7.4 Ml Udp) 325 mg PO QAM [facility] Stop: 01/17/22 08:59 Last Admin: 12/26/21 08:29 Dose: 325 mg Documented by: Fluoxetine HCl (Fluoxetine Hcl 20 Mg/5 Ml 120ml Btl) 40 mg PO DAILY [facility] Stop: 01/19/22 08:59 Last Admin: 12/26/21 09:16 Dose: Not Given Documented by: Insulin Human Regular (Insulin Human Regular) 0 units SC Q6 [facility] Stop: 01/15/22 17:59 Last Admin: 12/26/21 12:20 Dose: 4 units Documented by: Lansoprazole (Lansoprazole 30 Mg Soltab) [facility] Stop: 01/12/22 08:59 Last Admin: 12/26/21 08:29 Dose: 30 mg Documented by: Levalbuterol HCl (Levalbuterol Hcl 1.25 Mg/3 Ml Neb) 1.25 mg NEB Q4R PRN; Prot ocol PRN Reason: Shortness Of Breath Or Wheezing Stop: 01/15/22 20:55 Last Admin: 12/16/21 21:23 Dose: 1.25 mg Documented by: Metoprolol Tartrate (Metoprolol Tartrate 25 Mg Tab) 12.5 mg PO BID [facility] Stop: 01/22/22 20:59 Last Admin: 12/26/21 08:27 Dose: 12.5 mg Documented by: Miscellaneous (Icu Electrolyte Replacement Protocol) 1 ea N/A BID@ [facility]; Protocol Stop: 12/29/21 17:59 Last Admin: 12/26/21 06:08 Dose: 1 ea Documented by: Ondansetron HCl (Ondansetron Inj 2 Mg/Ml 2 Ml Vial) 4 mg IV Q6H PRN PRN Reason: Nausea And Vomiting Stop: 01/12/22 20:30 Last Admin: 12/19/21 19:55 Dose: 4 mg Documented by: Potassium Phosphate (Pot Phosphate Monobasic W/ Sod Tab) 1 tab NG Q4H [facility] Stop: 12/26/21 14:16 Last Admin: 12/26/21 09:46 Dose: 1 tab Documented by: Simethicone (Simethicone 40 Mg/0.6 Ml 30ml) 80 mg PO QID PRN PRN Reason: GI Upset Stop: 01/18/22 14:58 Last Admin: 12/20/21 17:44 Dose: 80 mg Documented by: Sterile Water (Tube Feeding Water Flush) 200 ml PEG Q4H [facility] Stop: 01/12/22 08:13 Last Admin: 12/26/21 12:17 Dose: 200 ml Documented by: Warfarin Sodium (Warfarin Sod 7.5 Mg Tab) 7.5 mg PO [email or web address] [facility] Stop: 01/24/22 15:59 Warfarin Sodium (Warfarin Sod 10 Mg Tab) 10 mg PO [email or web address] [facility] Stop: 01/27/22 15:59 Pending Studies at Discharge: No Stand-Alone Forms: [facility] Skilled Items Patient informed of condition?: Yes DNR: Yes Discharge Level of Care: Other Communicable Disease: No Discharge Prognosis: Improving Lines: None Urinary Catheter: No Medications and DC Order Prescriptions: Continued atorvastatin 20 mg tablet 20 mg PO DAILY RF: 0 warfarin 10 mg tablet 10 mg PO DAILY RF: 0 warfarin 1 mg tablet 2 mg PO [id number] RF: 0 ondansetron 4 mg tablet,disintegrating 4 mg PO Q6H PRN (Reason: nausea and vomiting) Qty: 20 RF: 0 Discharge Orders: Discharge Order (Routine); Ordered 12/26/21 Ordered By: Garrett Garcia/Other Patient Handouts: Prediabetes, 5 Steps for Eating Healthier Admission Data Admit Date/Time: 11/03/21 21:06 Attending Provider: Garrett Dovre Admit Provider: Aramis Godinez Primary Care Provider: PCP,NO Other Providers: Dhruv Crockett ; Aramis Godinez ; Sabino Puente ; [facility] ; Garrett Dover ; Tony Donahue ; Sudha Sotelo ; Roselyn Tsang ; Johnie Anderson ; Shilpa Carreno How
[2021-12-26 15:18] VITALS: BP 119/72
[2021-12-26] MEDS ORDERED: LORazepam 0.5 MG/1 ML VIAL IV STA (15:57)
[2021-12-26 16:29] VITALS: PULSE 99; O2SAT 98
[2021-12-28] MEDS ORDERED: WARFARIN SOD 10 MG TAB PO SCH (16:00)
--- NOTE | 2022-01-12 11:51 | Coding Query ---
CODING QUERY To promote full compliance with coding requirements relating to patient care, provider participation is requested in all cases of hose maker uncertainty. Please assist us with the question(s) below: Please clarify the meaning of FRANDY. FRANDY is not a valid abbreviation. Thank you. ( x ) Acute Kidney Injury ( ) Acute Kidney Insufficiency ( ) Other (Specify): Principal Diagnosis: "that condition established after study, to be chiefly responsible for occasioning the admission of the patient to the hospital for care." Co-Existing Principal Diagnosis: "when two or more diagnoses equally meet the criteria for principal diagnosis as determined by the circumstances of admission, diagnostic work up, and/or therapy provided, and the Alphabetic Index, Tabular List, or another coding guideline does not provide sequencing direction, any one of the diagnoses may be sequenced first." "When the physician has documented what appears to be a current diagnosis in the body of the record, but has not included the diagnosis in the final diagnostic statement, the physician should be asked whether the diagnosis should be added." (Source Coding [facility] 2 QTR90. p3-4) ADOLFO
== END 2021-12-26 18:21 | DRG 4 ==
LOC: ED 14:22 → EDINP 21:06 → SUATTDRO 21:06 → EDINP 11-04 00:05 → 2W 11-04 21:40 → 2E 11-20 16:54 → 1E 11-26 22:19